=== PATIENT | female | born 1950 | race American Indian/Alaskan Native ===

== ENCOUNTER 2016-10-02 14:40 | Inpatient (IN) | payer MEDICARE ==
[2016-10-02 15:39] LABS: Basophils % (Auto) 0.8 % (0.0-1.8); Eosinophils % (Auto) 1.7 % (0.0-4.3); Hematocrit 31.6 % (30.3-42.9); Hemoglobin 10.6 gm/dl (10.1-14.3); Mean Corpuscular HGB Conc 34 % (30-34); Mean Corpuscular Hemoglobin 31 pg (28-32); Mean Corpuscular Volume 92 fl (79-97); Platelet Count 273 K/mm3 (140-440); Red Blood Count 3.44 M/mm3 (3.65-5.03); Red Cell Distribution Width 17.2 % (13.2-15.2)
[2016-10-02 15:48] LABS: INR 1.02 (0.87-1.13)
[2016-10-02 15:49] LABS: Partial Thromboplastin Time 38.7 Sec. (24.2-36.6)
[2016-10-02 16:12] LABS: BUN/Creatinine Ratio 7.04; Calcium 8.7 mg/dL (8.4-10.2); Chloride 96.3 mmol/L (98-107)
--- NOTE | 2016-10-02 16:15 | Emergency Department Report ---
ED Chest Pain HPI - General Chief Complaint: Chest Pain Stated Complaint: CHEST PAIN Time Seen by Provider: 10/02/16 15:57 Source: patient, EMS Mode of arrival: Stretcher Limitations: No Limitations - History of Present Illness Initial Comments: This is a 66-year-old Afro-[place]ian female presents to the emergency department with complaints of low back pain and chest pain. The low back pain has been going on for the past 2 days and radiates to the bilateral hips. She denies any problems with bowel or bladder, numbness or paresthesias or any neurological deficits. Her complaint of chest pain is generalized aches to the whole chest. It is not associated with any shortness of breath, nausea, vomiting or diaphoresis. The pain has been constant and continued through dialysis this morning. When the dialysis caused the chest pain to worsen, she was sent in via EMS for further evaluation. She completed about 3.5 of a total of 4 hours for dialysis. She denies any history of IN, CVA, PE/DVT. Her primary care doctor is a Dr. Lopez and her quality assurance tech is a Dr. Ford. Severity scale (0 -10): 8 - Related Data Home Medications Medication Instructions Recorded Confirmed Last Taken Allopurinol [Zyloprim] 100 mg PO DAILY 08/03/14 10/02/16 11/14/14 Carvedilol [Coreg] 12.5 mg PO BID 08/03/14 10/02/16 11/14/14 Cinacalcet [Sensipar] 60 mg PO QDAY 09/13/16 10/02/16 Unknown Docusate Sodium [Colace CAP] 100 mg PO BID PRN 09/13/16 10/02/16 Unknown Furosemide [Lasix TAB] 20 mg PO QDAY 09/13/16 10/02/16 Unknown Sevelamer Carbonate [Renvela] 800 mg PO TIDWM 09/13/16 10/02/16 Unknown traMADol [Ultram 50 MG tab] 50 mg PO Q6HR PRN 09/13/16 10/02/16 Unknown Previous Rx's Medication Instructions Recorded Last Taken Type Lisinopril [Zestril TAB] 20 mg PO QDAY #30 tablet 12/13/13 11/14/14 Rx Allergies Allergy/AdvReac Type Severity Reaction Status Date / Time No Known Allergies Allergy Verified 12/09/13 08:59 MONE score - Mone Score Age > 65: (1) Yes Aspirin use within the Past 7 Days: (0) No 3 or more CAD Risk Factors: (0) No 2 or more Angina events in past 24 hrs: (1) Yes Known CAD with more than 50% Stenosis: (0) No Elevated Cardiac Markers: (0) No ST Deviation Greater than 0.5mm: (0) No MONE Score: 2 ED Review of Systems ROS: Stated complaint: CHEST PAIN Other details as noted in HPI Comment: All other systems reviewed and negative Constitutional: denies: chills, fever Eyes: denies: eye pain, eye discharge, vision change ENT: denies: ear pain, throat pain Respiratory: denies: cough, shortness of breath, wheezing Cardiovascular: chest pain. denies: palpitations Gastrointestinal: denies: abdominal pain, nausea, diarrhea Genitourinary: denies: urgency, dysuria, discharge Musculoskeletal: back pain. denies: arthralgia Skin: denies: rash, lesions Neurological: denies: headache, weakness, numbness, paresthesias ED Past Medical Hx - Past Medical History Previous Medical History?: Yes Hx Hypertension: Yes Hx CVA: Yes (x 2) Hx Congestive Heart Failure: Yes Hx Diabetes: Yes Hx GERD: Yes Hx Renal Disease: Yes (ESRD/dialysis M, W, F) Hx Arthritis: Yes Additional medical history: enlarged heart, gout - Surgical History Past Surgical History?: Yes Hx Appendectomy: Yes Additional Surgical History: tubal ligation, vas cath. LUE fistula - Social History Smoking Status: Unknown if ever smoked - Medications Home Medications: Home Medications Medication Instructions Recorded Confirmed Last Taken Type Lisinopril [Zestril TAB] 20 mg PO QDAY #30 tablet 12/13/13 10/02/16 11/14/14 Rx Allopurinol [Zyloprim] 100 mg PO DAILY 08/03/14 10/02/16 11/14/14 History Carvedilol [Coreg] 12.5 mg PO BID 08/03/14 10/02/16 11/14/14 History Cinacalcet [Sensipar] 60 mg PO QDAY 09/13/16 10/02/16 Unknown History Docusate Sodium [Colace CAP] 100 mg PO BID PRN 09/13/16 10/02/16 Unknown History Furosemide [Lasix TAB] 20 mg PO QDAY 09/13/16 10/02/16 Unknown History Sevelamer Carbonate [Renvela] 800 mg PO TIDWM 09/13/16 10/02/16 Unknown History traMADol [Ultram 50 MG tab] 50 mg PO Q6HR PRN 09/13/16 10/02/16 Unknown History ED Physical Exam - General Limitations: No Limitations - Other Other exam information: GENERAL: The patient is well-developed well-nourished. HEENT: Normocephalic. Atraumatic. Extraocular motions are intact. Patient has moist mucous membranes. NECK: Supple. Trachea is midline. CHEST/LUNGS: Clear to auscultation. There is no respiratory distress noted. HEART/CARDIOVASCULAR: Regular. There is no tachycardia. There is no gallop rub or murmur. ABDOMEN: Abdomen is soft, nontender. Patient has normal bowel sounds. There is no abdominal distention. SKIN: There is no rash. There is no edema. There is no diaphoresis. NEURO: The patient is awake, alert, and oriented. The patient is cooperative. The patient has no focal neurologic deficits. The patient has normal speech. MUSCULOSKELETAL: There is no tenderness or deformity. There is no limitation range of motion. There is no evidence of acute injury. Muscle strength 5 out of 5 for upper and lower extremities including EHL bilaterally. BACK: No midline thoracic tenderness to palpation or deformity. Patient has reproducible tenderness to palpation to the lumbar midline and bilateral paraspinal regions but no step-off or deformity. ED Course Vital Signs 10/02/16 10/02/16 10/02/16 14:48 15:35 15:39 Temperature 98.2 F Pulse Rate 84 87 87 Respiratory 18 25 H 15 Rate Blood Pressure 200/80 154/63 Blood Pressure 153/63 [Right] O2 Sat by Pulse 97 98 Oximetry 10/02/16 10/02/16 10/02/16 16:00 16:40 17:00 Temperature Pulse Rate 83 89 Respiratory 15 18 18 Rate Blood Pressure 154/64 158/71 Blood Pressure [Right] O2 Sat by Pulse 95 98 91 Oximetry ED Medical Decision Making - Lab Data Result diagrams: 10/02/16 15:20 10/02/16 15:20 - EKG Data -: EKG Interpreted by In EKG shows normal: sinus rhythm, axis, intervals, QRS complexes (LVH), ST-T waves (nonspecific ST changes) Rate: normal - EKG Data When compared to previous EKG there are: previous EKG unavailable Interpretation: nonspecific ST-T wave annamarie, LVH - Radiology Data Radiology results: report reviewed, image reviewed interpreted by me: Chest x-ray did not show any acute process. Heart is normal shape and size. No effusions. No pneumothorax. No signs of pneumonia seen. VQ scan reads as moderately large ventilation/perfusion match defect in the lower left lung. Limited evaluation on portable chest radiograph, there may be mild airspace disease in this region. If this is the case, this would be intermediate probability for pulmonary embolism. - Medical Decision Making 66-year-old female presents with a few days of low back pain and now more acute generalized chest pain. Patient recently had a cardiac catheterization at the end of August in which day stent was placed at that time. Patient was evaluated today with physical exam, labs, imaging EKG. The EKG was originally done through EMS but does show a 12-lead that shows some LVH and nonspecific ST- T changes but otherwise no obvious STEMI or dysrhythmia. Chest x-ray does not show any pleural effusion, obvious pneumonia or pneumothorax or any acute process. Patient's first troponin came back positive but this may be secondary to her renal insufficiency as opposed to coronary artery disease. Patient had a elevated but equivocal d-dimer so a VQ scan was done secondary to the patient' s renal insufficiency. VQ scan came back with a moderate left lower lobe ventilation/perfusion match defect that could be intermediate probability for PE. For this reason heparin will be started. Patient will be admitted to hospital for serial troponins and further evaluation. Regarding the patient's low back pain. The patient does not have any focal, motor or sensory deficits. There are no problems with bowel or bladder or any neurological deficits. Patient does not appear to have any of the emergent back condition such as cauda equina, cord compression or epidural abscess. Since there was no trauma and there is no obvious deformity or step-off, did not feel that any imaging was necessary at this time. Patient has been accepted for admission by the hospitalist, Dr. Rees. - Differential Diagnosis IN, PE, CHF, pneumonia Critical Care Time: No Critical care attestation.: If time is entered above; I have spent that time in minutes in the direct care of this critically ill patient, excluding procedure time. ED Disposition Clinical Impression: ESRD needing dialysis, Elevated troponin, Equivocal imaging test findings, Back pain Chest pain Qualifiers: Chest pain type: unspecified Qualified Code(s): R07.9 - Chest pain, unspecified HTN (hypertension) Qualifiers: Hypertension type: essential hypertension Qualified Code(s): I10 - Essential ( primary) hypertension Disposition: OP ADMITTED IP TO THIS HOSP Is pt being admited?: Yes Condition: Stable Instructions: Chest Pain (ED), Hypertension (ED) Time of Disposition: 19:37
[2016-10-02 16:32] LABS: Potassium 2.9 mmol/L (3.6-5.0)
[2016-10-02] MEDS ORDERED: MORPHINE IV ONE (16:40)
[2016-10-02] MEDS ORDERED: K-DUR PO ONE ×3 (17:07→23:27)
--- NOTE | 2016-10-02 19:07 | Nuclear Medicine Report ---
FINAL REPORT PROCEDURE: NM LUNG SCAN PERF/VENT TECHNIQUE: Five mCi Tc-99m MAA was injected IV for pulmonary perfusion imaging in multiple projections. Fifteen mCi xenon 133 aerosol was inhaled for pulmonary ventilation imaging in multiple projections. Injection site: RIGHT antecubital fossa. CPT 46405 REGULATORY GUIDELINES: The patient was released based upon established guidelines. HISTORY: SOB, CP, elevated dimer COMPARISON: Chest radiograph dated 10/02/2015. FINDINGS: Perfusion: Moderately large defect in the left lower lung. Ventilation: Moderately large defect in the left lower lung. IMPRESSION: Moderately large ventilation/perfusion match defect in the left lower lung. Limited evaluation on portable chest radiograph, there may be mild airspace disease in this region. If this is the case (i.e. triple match in the left lower lobe) this would be intermediate probability for pulmonary embolism. Consider further evaluation including pulmonary embolism protocol chest CT if there is continued clinical concern and patient has no contraindication to intravenous contrast.
[2016-10-02] MEDS ORDERED: HEPARIN 10,000 UNITS/10 ML IV ONE (19:20)
[2016-10-02] MEDS ORDERED: HEPARIN/ 0.45% NACL-25,000 UNIT/500 ML 500 ML IV SCH (20:00)
[2016-10-02 20:28] LABS: INR 1.01 (0.87-1.13); Partial Thromboplastin Time 32.3 Sec. (24.2-36.6)
[2016-10-02] MEDS ORDERED: COLACE PO PRN (23:11)
[2016-10-02] MEDS ORDERED: ULTRAM ONE (23:34)
[2016-10-02] MEDS: ULTRAM PO PRN (23:42)
--- NOTE | 2016-10-03 00:04 | History and Physical Report ---
History of Present Illness Date of examination: 10/03/16 Date of admission: 10/02/16 22:40 Chief complaint: chest pain, ESRD on HD History of present illness: Patient is a 66-year-old lady was a history of end-stage renal disease on hemodialysis on Wednesdays and Fridays, complained of right-sided chest pain while at hemodialysis today. Pain was intermittent in severity. Radiating to right shoulder. Denies any shortness of breath or diaphoresis. No palpitations. No orthopnea or proximal nocturnal dyspnea. Came to the emergency department, where cardiac enzymes were found to be elevated. Potassium was 2.9. Admission was therefore requested. Id. as well as elevated. Past History Past Medical History: ESRD, hypertension Past Surgical History: Other (tubal ligation, appendectomy,) Social history: lives with family, smoking ( smokes about 10 cigarettes a day), alcohol abuse. denies: IV drug use Family history: hypertension Medications and Allergies Allergies Allergy/AdvReac Type Severity Reaction Status Date / Time No Known Allergies Allergy Verified 12/09/13 08:59 Home Medications Medication Instructions Recorded Confirmed Last Taken Type Lisinopril [Zestril TAB] 20 mg PO QDAY #30 tablet 12/13/13 10/02/16 11/14/14 Rx Allopurinol [Zyloprim] 100 mg PO DAILY 08/03/14 10/02/16 11/14/14 History Carvedilol [Coreg] 12.5 mg PO BID 08/03/14 10/02/16 11/14/14 History Cinacalcet [Sensipar] 60 mg PO QDAY 09/13/16 10/02/16 Unknown History Docusate Sodium [Colace CAP] 100 mg PO BID PRN 09/13/16 10/02/16 Unknown History Furosemide [Lasix TAB] 20 mg PO QDAY 09/13/16 10/02/16 Unknown History Sevelamer Carbonate [Renvela] 800 mg PO TIDWM 09/13/16 10/02/16 Unknown History traMADol [Ultram 50 MG tab] 50 mg PO Q6HR PRN 09/13/16 10/02/16 Unknown History Active Meds: Active Medications Allopurinol (Zyloprim) 100 mg PO DAILY ETHAN Carvedilol (Coreg) 12.5 mg PO BID ETHAN Cinacalcet (Sensipar) 60 mg PO QDAY ETHAN Docusate Sodium (Colace) 100 mg PO BID PRN PRN Reason: Constipation Enoxaparin Sodium (Lovenox) 40 mg SUB-Q QDAY ETHAN Furosemide (Lasix) 20 mg PO QDAY ETHAN Lisinopril (Zestril) 20 mg PO QDAY ETHAN Nitroglycerin (Nitro Dur) 0.1 mg TD QDAY@0600 ETHAN Sevelamer Carbonate (Renvela) 800 mg PO TIDWM ETHAN Tramadol HCl (Ultram) 50 mg PO Q6H PRN PRN Reason: Pain Last Admin: 10/02/16 23:42 Dose: 50 mg Review of Systems Constitutional: no weight loss, no weight gain Ears, nose, mouth and throat: no ear pain Cardiovascular: chest pain, no orthopnea, no palpitations Respiratory: no cough, no cough with sputum, no excessive sputum Gastrointestinal: no nausea, no vomiting, no diarrhea Genitourinary Female: no dyspareunia, no dysmenorrhea, no pelvic pain, no flank pain Integumentary: no rash, no pruritis, no redness Neurological: no head injury, no transient paralysis, no paralysis, no weakness Psychiatric: no anxiety, no memory loss, no change in sleep habits Endocrine: no cold intolerance, no heat intolerance, no polyphagia Hematologic/Lymphatic: no easy bruising, no easy bleeding Allergic/Immunologic: no urticaria Exam - Constitutional Vitals: Temp Pulse Resp BP Pulse Ox 98.3 F 86 15 155/63 95 10/02/16 19:15 10/02/16 22:00 10/02/16 22:00 10/02/16 22:00 10/02/16 22:00 General appearance: Present: no acute distress - EENT Eyes: Present: PERRL ENT: hearing intact, clear oral mucosa - Neck Neck: Present: supple, normal ROM - Respiratory Respiratory effort: normal Respiratory: bilateral: CTA - Cardiovascular Heart Sounds: Present: S1 & S2. Absent: rub, click - Extremities Extremities: pulses symmetrical, No edema Peripheral Pulses: within normal limits - Abdominal General gastrointestinal: Present: soft, non-tender, non-distended, normal bowel sounds Female genitourinary: Present: normal - Integumentary Integumentary: Present: clear, warm, dry - Musculoskeletal Musculoskeletal: strength equal bilaterally, other (A-V fistula in the left upper arm) - Psychiatric Psychiatric: appropriate mood/affect, intact judgment & insight - Neurologic Neurologic: CNII-XII intact, moves all extremities Results - Labs CBC & Chem 7: 10/02/16 15:20 10/02/16 15:20 Assessment and Plan Assessment 1. Chest pain most likely muscular skeletal 2. End-stage renal disease hemodialysis 3. Hypokalemia with a potassium of 2.9 Plan Admit to telemetry Commence patient on oxygen,nitroglycerin, aspirin, morphine. Nephrology consult to continue hemodialysis on Wednesdays and Fridays Supplement potassium orally DVT prophylaxis with Lovenox, GI prophylaxis with Pepcid Spent 32 minutes in direct patient care and explanation of management plan the patient
--- NOTE | 2016-10-03 00:42 | Admit Criteria Form ---
Admission Criteria Documentation: CHEST PAIN Clinical Indications for Admission to Inpatient Care (Place 'X' for any and all applicable criteria): Admission is indicated for chest pain and ANY ONE of the following(1)(2)(3)(4)(5 ): [ ]I. Angina with acute coronary syndrome (Also use Myocardial Infarction or Angina guideline) [ ]II. Hemodynamic instability [ ]III. Angina needing acute intervention as indicated by ALL of the following( 11)(12): [ ]a) Unstable angina is present as indicated by angina that is ANY ONE of the following: [ ]i) New onset [ ]ii) Nocturnal [ ]iii) Prolonged at rest [ ]iv) Progressive [ ]b) Angina warrants acute intervention as indicated by ANY ONE of the following: [ ]i) Recurrent angina (e.g, not responding as previously to treatment) [ ]ii) Angina at rest or with low-level activities despite initial medical therapy [ ]iii) New or presumably new ST-segment depression on ECG [ ]iv) Signs or symptoms of heart failure (eg, dyspnea, pulmonary edema) [ ]v) New or worsening mitral regurgitation [ ]vi) Hemodynamic instability [ ]vii) Dangerous arrhythmia (eg, sustained ventricular tachycardia) [ ]viii) History of percutaneous coronary intervention within 6 months [ ]ix) History of coronary artery bypass graft surgery [ ]x) MONE risk score of 2 or greater[A] [ ]xi) History of Diabetes(14) [ ]xii) High-risk cardiac ischemia findings on noninvasive testing (e.g, echocardiogram, treadmill testing, nuclear scan) [ ]xiii) Chronic renal insufficiency (ie, estimated GFR less than 60 mL/min/1.732m) [ ]xiv) Left ventricular ejection fraction less than 40% [ X]IV. Evidence of VA (eg, cardiac biomarkers positive, ST-segment elevation on ECG) also use Myocardial Infarction Criteria Form. [ ]V. Pulmonary edema [ ]. Respiratory distress [ ]VII. Chest pain indicative of serious diagnosis other than coronary artery disease (eg, aortic dissection) [ ]VIII. Contraindications and/or Inappropriate clinical situations for Observational Care in patients with Chest Pain, when ANY ONE of the following is required: [ ]a) Patient with risk factor for pulmonary embolism, acute coronary syndrome and myocardial infarction (18) [ ]b) Patient with Pulmonary embolism require an average LOS of 4.3 days, therefore emergency department observation management is inappropriate 18,23 [ ]c) Painful condition/s in the elderly, have the highest rate of recidivism after emergency department observation management (10.8%) 20,21,22 [ ]d) Elevated cardiac biomarker requires intensive and exhaustive care (19) [ ]IX. General contraindications and/or Inappropriate clinical situations for Observational Care in patients with Chest Pain, when ANY ONE of the following is required: [ ]a) Prediction of prolongation of LOS based on ANY ONE of the following may be considered as a contraindication for observational care 2, 3, 4, 5, 6, 7, 8, 9, 10, 11 [ ]i) Age > 65 yrs. [ ]ii) Patient arriving by ambulance [ ]iii) Patient with high acuity [ ]iv) Patient requiring vital sign monitoring [ ]v) Patient on IV medication [ ]b) Systolic blood pressures 180mmHg 3,12 [ ]c) Patient with altered mental status including delirium and other alteration of consciousness, (3) [ ]d) Patient whose discharge disposition will be to a long term home or rehabilitation home should not be managed in Emergency Department Observation Unit. CMS rule requires 3 days hospital stay before such placement. 3,13 [ ]e) Patient with failure to thrive due to broad array of etiologies 3,16,17 [ ]f) Inability to ambulate 3,14 Extended stay beyond goal length of stay may be needed for (1)(28): [ ]a) Specific condition diagnosed after evaluation (eg, pulmonary embolism, aortic dissection) [ ]b) Unstable angina [ ]c) Continued suspicion of acute coronary syndrome with inability to complete needed cardiac evaluation (eg, patient clinically unable to undergo stress testing) [ ]d) Myocardial infarction (Contents from ANGINA and CHEST PAIN clinical indications for admission to inpatient care have been integrated in this form) The original [email or web address] content created by [employer] has been revised. The portions of the content which have been revised are identified through the use of italic text or in bold, and [facility] [employer] has neither reviewed nor approved the modified material. All other unmodified content is copyright [email or web address]. Please see references footnoted in the original [email or web address] edition 2016 Admission Criteria Met: Yes
[2016-10-03] MEDS ORDERED: NORCO 5/325 PO ONE (04:46)
[2016-10-03 05:55] LABS: Creatine Kinase MB 1.3 ng/mL (0.0-4.0)
[2016-10-03] MEDS: NITRO DUR TD SCH (06:10)
--- NOTE | 2016-10-03 08:06 | XRay Report ---
AP CHEST : 10/02/16 14:40:00 CLINICAL: Chest pain. COMPARISON:09/13/16 FINDINGS: Stable cardiomegaly. Mild prominence of the central pulmonary vessels. The lungs are normally expanded and clear. The bones and soft tissues are unremarkable. IMPRESSION: Cardia megaly and pulmonary venous hypertension. No pulmonary edema.
[2016-10-03 09:40] LABS: BUN/Creatinine Ratio 7.74; Calcium 9.3 mg/dL (8.4-10.2); Potassium 5.2 mmol/L (3.6-5.0)
[2016-10-03] MEDS: RENVELA PO SCH ×3 (09:57→17:04)
[2016-10-03] MEDS: ASPIRIN PO SCH (09:57)
[2016-10-03] MEDS: SENSIPAR PO SCH (09:58)
[2016-10-03] MEDS: COREG PO SCH ×3 (09:58→22:00)
[2016-10-03] MEDS: LASIX PO SCH (09:58)
[2016-10-03] MEDS: ZYLOPRIM PO SCH (09:58)
[2016-10-03] MEDS: LOVENOX SUB-Q SCH (09:58)
[2016-10-03] MEDS: ZESTRIL PO SCH (09:58)
[2016-10-03 14:11] LABS: Creatine Kinase MB 1.4 ng/mL (0.0-4.0)
--- NOTE | 2016-10-03 14:46 | Consultation ---
History of Present Illness Consult date: 10/03/16 Requesting physician: CON WARNER Consult reason: chest pain History of present illness: The patient is a 66 year old female who is followed by Dr. Ford in the office with a history of CAD s/p recent PCI of the RCA (09/14/16), hypertension, ESRD who presented to with complaints of substernal chest pain with radiation to her right shoulder and right hip that started yesterday prior to dialysis. Once she was started on dialysis, the chest pain became more severe and she was taken off the machine early and sent to the ER for further evaluation. She denies any shortness of breath, nausea, vomiting or diaphoresis. Troponin level is mildly elevated. Echo done 08/21/2016 showed EF 50-55%. On 09/14/16 left heart cath revealed calcified coronary arteries (large epicardial vessels), left main patent, LAD patent, circumflex patent, ramus patent, OM1 patent, diagonal 1 patent, 95% ostial proximal RCA. She underwent successful PCI with a drug- eluting resolute 3.5 x 22mm. She states that she has been compliant with DAPT. 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 denies: alcohol abuse, prescription drug abuse, IV drug use Family history: hypertension Medications and Allergies Allergies Allergy/AdvReac Type Severity Reaction Status Date / Time No Known Allergies Allergy Verified 12/09/13 08:59 Home Medications Medication Instructions Recorded Confirmed Last Taken Type Lisinopril [Zestril TAB] 20 mg PO QDAY #30 tablet 12/13/13 10/02/16 11/14/14 Rx Allopurinol [Zyloprim] 100 mg PO DAILY 08/03/14 10/02/16 11/14/14 History Carvedilol [Coreg] 12.5 mg PO BID 08/03/14 10/02/16 11/14/14 History Cinacalcet [Sensipar] 60 mg PO QDAY 09/13/16 10/02/16 Unknown History Docusate Sodium [Colace CAP] 100 mg PO BID PRN 09/13/16 10/02/16 Unknown History Furosemide [Lasix TAB] 20 mg PO QDAY 09/13/16 10/02/16 Unknown History Sevelamer Carbonate [Renvela] 800 mg PO TIDWM 09/13/16 10/02/16 Unknown History traMADol [Ultram 50 MG tab] 50 mg PO Q6HR PRN 09/13/16 10/02/16 Unknown History Active Meds: Active Medications Allopurinol (Zyloprim) 100 mg PO DAILY [facility] Last Admin: 10/03/16 09:58 Dose: 100 mg Aspirin (Aspirin) 325 mg PO QDAY [facility] Last Admin: 10/03/16 09:57 Dose: 325 mg Carvedilol (Coreg) 12.5 mg PO BID [facility] Last Admin: 10/03/16 09:58 Dose: 12.5 mg Cinacalcet (Sensipar) 60 mg PO QDAY [facility] Last Admin: 10/03/16 09:58 Dose: 60 mg Docusate Sodium (Colace) 100 mg PO BID PRN PRN Reason: Constipation Enoxaparin Sodium (Lovenox) 30 mg SUB-Q QDAY [facility] Last Admin: 10/03/16 09:58 Dose: 30 mg Furosemide (Lasix) 20 mg PO QDAY [facility] Last Admin: 10/03/16 09:58 Dose: 20 mg Lisinopril (Zestril) 20 mg PO QDAY [facility] Last Admin: 10/03/16 09:58 Dose: 20 mg Nitroglycerin (Nitro Dur) 0.1 mg TD QDAY@0600 [facility] Last Admin: 10/03/16 06:10 Dose: 0.1 mg Sevelamer Carbonate (Renvela) 800 mg PO TIDWM [facility] Last Admin: 10/03/16 12:21 Dose: 800 mg Tramadol HCl (Ultram) 50 mg PO Q6H PRN PRN Reason: Pain Last Admin: 10/02/16 23:42 Dose: 50 mg Review of Systems Constitutional: no fever, no chills Ears, nose, mouth and throat: no nasal congestion, no nasal discharge, no sinus pressure Cardiovascular: chest pain, no shortness of breath Respiratory: no shortness of breath, no dyspnea on exertion, no congestion, no wheezing Gastrointestinal: no abdominal pain, no nausea, no vomiting, no diarrhea Genitourinary Female: no dysuria, no urgency Musculoskeletal: no neck stiffness, no neck pain, no myalgias Integumentary: no rash, no pruritis Neurological: no parathesias, no numbness, no tingling, no headaches Endocrine: no cold intolerance, no heat intolerance Hematologic/Lymphatic: no easy bruising, no easy bleeding Allergic/Immunologic: no urticaria, no wheezing Physical Examination Vital Signs Temp Pulse Resp BP 98.2 F 84 18 200/80 10/02/16 14:48 10/02/16 14:48 10/02/16 14:48 10/02/16 14:48 General appearance: no acute distress HEENT: Positive: Normocephaly, Mucus Membranes Moist Neck: Positive: neck supple, trachea midline Cardiac: Positive: Reg Rate and Rhythm, S1/S2 Lungs: Positive: clear to auscultation Neuro: Positive: Grossly Intact Abdomen: Positive: Soft, Active Bowel Sounds. Negative: Tender Skin: Positive: Clear. Negative: Rash Extremities: Present: normal. Absent: edema Results 10/02/16 15:20 10/03/16 09:05 Cardiac Enzymes 10/03/16 10/03/16 Range/Units 04:49 12:18 CK-MB (CK-2) 1.3 1.4 (0.0-4.0) ng/mL Comprehensive Metabolic Panel 10/03/16 Range/Units 09:05 Sodium 141 (137-145) mmol/L Potassium 5.2 H D (3.6-5.0) mmol/L Chloride 97.0 L (98-107) mmol/L Carbon Dioxide 30 (22-30) mmol/L BUN 48 H (7-17) mg/dL Creatinine 6.2 H (0.7-1.2) mg/dL Glucose 78 (65-100) mg/dL Calcium 9.3 (8.4-10.2) mg/dL - Imaging and Cardiology Echo: report reviewed (08/2016: EF 50-55% ) EKG: image reviewed EKG interpretations - Telemetry EKG Rhythm: Sinus Rhythm - EKG Sinus rhythms and dysrhythmias: sinus rhythm Repolarization changes or abnormalities: nonspecific abnormality, ST segment, and/or T wave Assessment and Plan Chest pain resolved Echo 08/2016: EF 50-55% (increased from ~30% in 2013) Lexiscan thallium stress test in am VQ scan: moderate LLL ventilation/perfusion match defect-->intermediate probability for PE? NSTEMI type II troponin elevation likely due to ESRD CAD s/p recent PCI to RCA (09/14/16) [facility] 09/14/16: calcified coronary arteries large epicardial vessels, left main patent, LAD patent, circumflex patent, ramus patent, OM1 patent, diagonal 1 patent, 95% ostial proximal RCA-->successful PCI with a drug-eluting resolute 3.5 x 22 mm continue ASA, Plavix, statin, coreg, lisinopril Hypertension stable continue coreg/lisinopril Hyperlipidemia Peripheral arterial disease ESRD Tobacco abuse counseled on cessation Lexiscan thallium stress test in am. Further recommendations to follow. The patient has been seen in conjunction with Dr. Kim who agrees with the assessment and plan of care. Thank you Dr. Warner for allowing us to participate in the care of this patient.
[2016-10-03] MEDS: PLAVIX PO SCH (17:04)
--- NOTE | 2016-10-03 18:08 | Progress Note ---
[id number] End-stage renal disease on hemodialysis. Nephrology managing Hypertension continue Coreg Coronary artery disease.history of PCI Aspirin Plavix beta blockers History Interval history: chest pain Hospitalist Physical - Constitutional Vitals: Temp Pulse Resp BP Pulse Ox 98.4 F 79 18 166/77 96 10/03/16 11:43 10/03/16 14:07 10/03/16 11:43 10/03/16 11:43 10/03/16 11:43 General appearance: Present: no acute distress - EENT Eyes: Present: PERRL ENT: hearing intact - Neck Neck: Present: supple, normal ROM - Respiratory Respiratory effort: normal Respiratory: bilateral: CTA, negative: diminished, rales, rhonchi, wheezing - Cardiovascular Rhythm: regular Heart Sounds: Present: S1 & S2 (S1 and S2 regular) - Extremities Extremities: no ischemia, No edema, normal temperature, normal color - Abdominal General gastrointestinal: soft, non-tender, non-distended, normal bowel sounds - Integumentary Integumentary: Present: clear, warm, dry - Psychiatric Psychiatric: appropriate mood/affect, intact judgment & insight - Neurologic Neurologic: other (awake alert) Results - Labs CBC & Chem 7: 10/04/16 05:26 10/05/16 09:05 Labs: Laboratory Last Values WBC 5.0 K/mm3 (4.5-11.0) 10/02/16 15:20 RBC 3.44 M/mm3 (3.65-5.03) L 10/02/16 15:20 Hgb 10.6 gm/dl (10.1-14.3) 10/02/16 15:20 Hct 31.6 % (30.3-42.9) 10/02/16 15:20 MCV 92 fl (79-97) 10/02/16 15:20 MCH 31 pg (28-32) 10/02/16 15:20 MCHC 34 % (30-34) 10/02/16 15:20 RDW 17.2 % (13.2-15.2) H 10/02/16 15:20 Plt Count 273 K/mm3 (140-440) 10/02/16 15:20 Lymph % (Auto) 21.3 % (13.4-35.0) 10/02/16 15:20 [place] % (Auto) 11.3 % (0.0-7.3) H 10/02/16 15:20 Eos % (Auto) 1.7 % (0.0-4.3) 10/02/16 15:20 Baso % (Auto) 0.8 % (0.0-1.8) 10/02/16 15:20 Lymph # 1.1 K/mm3 (1.2-5.4) L 10/02/16 15:20 [place] # 0.6 K/mm3 (0.0-0.8) 10/02/16 15:20 Eos # 0.1 K/mm3 (0.0-0.4) 10/02/16 15:20 Baso # 0.0 K/mm3 (0.0-0.1) 10/02/16 15:20 Seg Neutrophils % 64.9 % (40.0-70.0) 10/02/16 15:20 Seg Neutrophils # 3.2 K/mm3 (1.8-7.7) 10/02/16 15:20 PT 13.2 Sec. (12.2-14.9) 10/02/16 20:03 INR 1.01 (0.87-1.13) 10/02/16 20:03 APTT 32.3 Sec. (24.2-36.6) 10/02/16 20:03 D-Dimer 415.26 ng/mlDDU (0-234) H 10/02/16 17:00 Heparin Anti-Xa Level < 0.10 U.I./ml (0.3-0.7) L 10/03/16 04:49 Sodium 141 mmol/L (137-145) 10/03/16 09:05 Potassium 5.2 mmol/L (3.6-5.0) H D 10/03/16 09:05 Chloride 97.0 mmol/L (98-107) L 10/03/16 09:05 Carbon Dioxide 30 mmol/L (22-30) 10/03/16 09:05 Anion Gap 19 mmol/L 10/03/16 09:05 BUN 48 mg/dL (7-17) H 10/03/16 09:05 Creatinine 6.2 mg/dL (0.7-1.2) H 10/03/16 09:05 Estimated GFR 8 ml/min 10/03/16 09:05 BUN/Creatinine Ratio 7.74 % 10/03/16 09:05 Glucose 78 mg/dL (65-100) 10/03/16 09:05 Calcium 9.3 mg/dL (8.4-10.2) 10/03/16 09:05 Total Creatine Kinase 25 units/L (30-135) L 10/03/16 12:18 CK-MB (CK-2) 1.4 ng/mL (0.0-4.0) 10/03/16 12:18 CK-MB (CK-2) Rel Index 5.6 (0-4) H 10/03/16 12:18 Troponin T 0.082 ng/mL (0.00-0.029) H 10/03/16 12:18 Triglycerides 84 mg/dL (2-149) 10/02/16 20:03 Cholesterol 185 mg/dL (50-199) 10/02/16 20:03 LDL Cholesterol Direct 103 mg/dL (50-130) 10/02/16 20:03 HDL Cholesterol 66 mg/dL (40-59) H 10/02/16 20:03 Cholesterol/HDL Ratio 2.80 % 10/02/16 20:03
[2016-10-03] MEDS ORDERED: NACL 0.9% 1000 ML 100 ML IV PRN (19:32)
--- NOTE | 2016-10-03 19:39 | Consultation ---
History of Present Illness - Reason for Consult Consult date: 10/03/16 end stage renal disease Requesting physician: CON WARNER - History of Present Illness 66-year-old lady who is well known to me with a history of hypertension, complicated by end-stage renal disease on hemodialysis on a Sunday, Sunday and Sunday schedule. Patient has had numerous hospitalizations. She was recently hospitalized on account of chest pain about 3 weeks ago. Before that she was in this hospital with acute diverticulitis. During the hospitalization for chest pain, patient had Percutaneous coronary intervention of the right coronary artery. 2-D echo again showed ejection fraction of 50-55%. She says she was doing well till the day of presentation when she went to dialysis clinic and complained of right-sided chest pain. Pain radiated to the right shoulder and started before dialysis. There was no associated nausea vomiting and dizziness or diaphoresis. No shortness of breath. Patient was sent to the hospital for further evaluation. 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 denies: alcohol abuse, prescription drug abuse, IV drug use Family history: hypertension (both parents and one brother), other (father of complications of rheumatic fever. Mother in her 60s with kidney failure. One brother was on dialysis before he ) Medications and Allergies Allergies Allergy/AdvReac Type Severity Reaction Status Date / Time No Known Allergies Allergy Verified 12/09/13 08:59 Home Medications Medication Instructions Recorded Confirmed Last Taken Type Lisinopril [Zestril TAB] 20 mg PO QDAY #30 tablet 12/13/13 10/02/16 11/14/14 Rx Allopurinol [Zyloprim] 100 mg PO DAILY 08/03/14 10/02/16 11/14/14 History Carvedilol [Coreg] 12.5 mg PO BID 08/03/14 10/02/16 11/14/14 History Cinacalcet [Sensipar] 60 mg PO QDAY 09/13/16 10/02/16 Unknown History Docusate Sodium [Colace CAP] 100 mg PO BID PRN 09/13/16 10/02/16 Unknown History Furosemide [Lasix TAB] 20 mg PO QDAY 09/13/16 10/02/16 Unknown History Sevelamer Carbonate [Renvela] 800 mg PO TIDWM 09/13/16 10/02/16 Unknown History traMADol [Ultram 50 MG tab] 50 mg PO Q6HR PRN 09/13/16 10/02/16 Unknown History Active Meds: Active Medications Allopurinol (Zyloprim) 100 mg PO DAILY [facility] Last Admin: 10/03/16 09:58 Dose: 100 mg Aspirin (Aspirin) 325 mg PO QDAY [facility] Last Admin: 10/03/16 09:57 Dose: 325 mg Atorvastatin Calcium (Lipitor) 40 mg PO QHS [facility] Carvedilol (Coreg) 12.5 mg PO BID [facility] Last Admin: 10/03/16 09:58 Dose: 12.5 mg Cinacalcet (Sensipar) 60 mg PO QDAY [facility] Last Admin: 10/03/16 09:58 Dose: 60 mg Clopidogrel Bisulfate (Plavix) 75 mg PO QDAY [facility] Last Admin: 10/03/16 17:04 Dose: 75 mg Docusate Sodium (Colace) 100 mg PO BID PRN PRN Reason: Constipation Enoxaparin Sodium (Lovenox) 30 mg SUB-Q QDAY [facility] Last Admin: 10/03/16 09:58 Dose: 30 mg Furosemide (Lasix) 20 mg PO QDAY [facility] Last Admin: 10/03/16 09:58 Dose: 20 mg Lisinopril (Zestril) 20 mg PO QDAY [facility] Last Admin: 10/03/16 09:58 Dose: 20 mg Nitroglycerin (Nitro Dur) 0.1 mg TD QDAY@0600 [facility] Last Admin: 10/03/16 06:10 Dose: 0.1 mg Sevelamer Carbonate (Renvela) 800 mg PO TIDWM [facility] Last Admin: 10/03/16 17:04 Dose: 800 mg Tramadol HCl (Ultram) 50 mg PO Q6H PRN PRN Reason: Pain Last Admin: 10/02/16 23:42 Dose: 50 mg Review of Systems All systems: negative (as noted in the history of present illness) Exam - Vital Signs Vital signs: Vital Signs Temp Pulse Resp BP 98.2 F 84 18 200/80 10/02/16 14:48 10/02/16 14:48 10/02/16 14:48 10/02/16 14:48 - Physical Exam Narrative exam: Middle-aged -[place]in[place] female lying in bed in no acute distress HEENT normocephalic atraumatic, pupils equal reactive to light, pink, clear oropharynx Neck supple, no thyromegaly no jugular venous distention CVS S1-S2 regular rate rhythm without murmur, rub or gallop Chest clear to auscultation Abdomen soft nondistended nontender no organomegaly no bruit bowel sounds present Extremities no edema no cyanosis or clubbing Neuro awake, alert oriented x3 no gross deficit Results - Lab Results 10/02/16 15:20 10/03/16 09:05 Most recent lab results Calcium 9.3 mg/dL (8.4-10.2) 10/03/16 09:05 Assessment and Plan - Patient Problems (1) Chest pain Current Visit: Yes Status: Acute Qualifiers: Chest pain type: unspecified Qualified Code(s): R07.9 - Chest pain, unspecified Plan to address problem: Status post recent percutaneous coronary intervention. Stress test per cardiology in the morning (2) ESRD (end stage renal disease) on dialysis Current Visit: No Status: Acute Plan to address problem: Hemodialysis in the morning for solute clearance. (3) Hypertensive chronic kidney disease with stage 5 chronic kidney disease or end stage renal disease Current Visit: No Status: Acute Plan to address problem: Resume anti-hypertensive medications and follow up blood pressure. 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
[2016-10-03] MEDS ORDERED: PROCRIT IV PRN (19:45)
[2016-10-03] MEDS: ULTRAM PO PRN (20:44)
[2016-10-04 05:44] LABS: Hemoglobin 9.1 gm/dl (10.1-14.3)
[2016-10-04] MEDS: NITRO DUR TD SCH (06:23)
[2016-10-04] MEDS ORDERED: LEXISCAN IV ONE (08:30)
--- NOTE | 2016-10-04 08:48 | Progress Note ---
Assessment and Plan Chest pain resolved Echo 08/2016: EF 50-55% (increased from ~30% in 2014) VQ scan: moderate LLL ventilation/perfusion match defect-->intermediate probability for PE? await stress test results NSTEMI type II troponin elevation likely due to ESRD CAD s/p recent PCI to RCA (09/14/16) [facility] 09/14/16: calcified coronary arteries large epicardial vessels, left main patent, LAD patent, circumflex patent, ramus patent, OM1 patent, diagonal 1 patent, 95% ostial proximal RCA-->successful PCI with a drug-eluting resolute 3.5 x 22 mm continue ASA, Plavix, statin, coreg, lisinopril Hypertension continue coreg/lisinopril Hyperlipidemia Peripheral arterial disease ESRD Tobacco abuse counseled on cessation Await stress test results. The patient has been seen in conjunction with Dr. Calvert who agrees with the assessment and plan of care. Subjective Date of service: 10/04/16 Principal diagnosis: chest pain Interval history: Pt. seen and examined in the stress lab this morning. No new complaints. Sinus rhythm on the monitor. Objective Last Vital Signs Temp 97.9 F 10/04/16 04:45 Pulse 79 10/04/16 04:45 Resp 20 10/04/16 04:45 BP 168/73 10/04/16 04:45 Pulse Ox 98 10/04/16 04:45 - Physical Examination General: No Apparent Distress HEENT: Positive: Normocephaly, Mucus Membranes Moist Neck: Positive: neck supple, trachea midline Cardiac: Positive: Reg Rate and Rhythm, S1/S2 Lungs: Positive: clear to auscultation Neuro: Positive: Grossly Intact Abdomen: Positive: Soft, Active Bowel Sounds. Negative: Tender Skin: Positive: Clear. Negative: Rash Extremities: Present: normal. Absent: edema - Labs and Meds Cardiac Enzymes 10/03/16 10/03/16 Range/Units 12:18 18:56 CK-MB (CK-2) 1.4 2.0 (0.0-4.0) ng/mL CBC 10/04/16 Range/Units 05:26 Hgb 9.1 L (10.1-14.3) gm/dl Hct 28.0 L (30.3-42.9) % Plt Count 231 (140-440) K/mm3 Comprehensive Metabolic Panel 10/03/16 Range/Units 09:05 Sodium 141 (137-145) mmol/L Potassium 5.2 H D (3.6-5.0) mmol/L Chloride 97.0 L (98-107) mmol/L Carbon Dioxide 30 (22-30) mmol/L BUN 48 H (7-17) mg/dL Creatinine 6.2 H (0.7-1.2) mg/dL Glucose 78 (65-100) mg/dL Calcium 9.3 (8.4-10.2) mg/dL - Imaging and Cardiology EKG: image reviewed Echo: report reviewed (08/2016: EF 50-55% ) - Telemetry EKG Rhythm: Sinus Rhythm - EKG Sinus rhythms and dysrhythmias: sinus rhythm Repolarization changes or abnormalities: nonspecific abnormality, ST segment, and/or T wave
[2016-10-04] MEDS: ASPIRIN PO SCH (11:43)
[2016-10-04] MEDS: SENSIPAR PO SCH (11:43)
[2016-10-04] MEDS: COREG PO SCH ×2 (11:44→21:33)
[2016-10-04] MEDS: LOVENOX SUB-Q SCH (11:44)
[2016-10-04] MEDS: LASIX PO SCH (11:44)
[2016-10-04] MEDS: ZYLOPRIM PO SCH (11:44)
[2016-10-04] MEDS: ZESTRIL PO SCH (11:44)
[2016-10-04] MEDS: PLAVIX PO SCH (11:44)
[2016-10-04] MEDS: RENVELA PO SCH ×2 (11:49→13:18)
--- NOTE | 2016-10-04 15:10 | Progress Note ---
[id number] to rule out pulmonary embolism. I discussed with nephrology. Continue aspirin and beta nikolas End-stage renal disease on hemodialysis. Nephrology managing Hypertension continue Coreg Coronary artery disease. s/p recent PCI on 09/14/16. Continue Aspirin Plavix beta blockers History Interval history: chest pain, no SOB no fever Hospitalist Physical - Constitutional Vitals: Temp Pulse Resp BP Pulse Ox 98.3 F 77 18 174/76 98 10/04/16 11:34 10/04/16 15:05 10/04/16 11:34 10/04/16 11:34 10/04/16 04:45 General appearance: Present: no acute distress - EENT ENT: hearing intact - Neck Neck: Present: supple - Respiratory Respiratory effort: normal Respiratory: bilateral: CTA, negative: diminished, rales, rhonchi, wheezing - Cardiovascular Rhythm: regular Heart Sounds: Present: S1 & S2 - Extremities Extremities: no ischemia, No edema, normal temperature, normal color - Abdominal General gastrointestinal: soft, non-tender, non-distended, normal bowel sounds - Integumentary Integumentary: Present: clear, warm, dry - Psychiatric Psychiatric: appropriate mood/affect, intact judgment & insight - Neurologic Neurologic: moves all extremities, other (AAO x 3) Results - Labs CBC & Chem 7: 10/04/16 05:26 10/05/16 09:05 Labs: Laboratory Last Values WBC 5.0 K/mm3 (4.5-11.0) 10/02/16 15:20 RBC 3.44 M/mm3 (3.65-5.03) L 10/02/16 15:20 Hgb 9.1 gm/dl (10.1-14.3) L 10/04/16 05:26 Hct 28.0 % (30.3-42.9) L 10/04/16 05:26 MCV 92 fl (79-97) 10/02/16 15:20 MCH 31 pg (28-32) 10/02/16 15:20 MCHC 34 % (30-34) 10/02/16 15:20 RDW 17.2 % (13.2-15.2) H 10/02/16 15:20 Plt Count 231 K/mm3 (140-440) 10/04/16 05:26 Lymph % (Auto) 21.3 % (13.4-35.0) 10/02/16 15:20 [place] % (Auto) 11.3 % (0.0-7.3) H 10/02/16 15:20 Eos % (Auto) 1.7 % (0.0-4.3) 10/02/16 15:20 Baso % (Auto) 0.8 % (0.0-1.8) 10/02/16 15:20 Lymph # 1.1 K/mm3 (1.2-5.4) L 10/02/16 15:20 [place] # 0.6 K/mm3 (0.0-0.8) 10/02/16 15:20 Eos # 0.1 K/mm3 (0.0-0.4) 10/02/16 15:20 Baso # 0.0 K/mm3 (0.0-0.1) 10/02/16 15:20 Seg Neutrophils % 64.9 % (40.0-70.0) 10/02/16 15:20 Seg Neutrophils # 3.2 K/mm3 (1.8-7.7) 10/02/16 15:20 PT 13.2 Sec. (12.2-14.9) 10/02/16 20:03 INR 1.01 (0.87-1.13) 10/02/16 20:03 APTT 32.3 Sec. (24.2-36.6) 10/02/16 20:03 D-Dimer 415.26 ng/mlDDU (0-234) H 10/02/16 17:00 Heparin Anti-Xa Level < 0.10 U.I./ml (0.3-0.7) L 10/03/16 04:49 Sodium 141 mmol/L (137-145) 10/03/16 09:05 Potassium 5.2 mmol/L (3.6-5.0) H D 10/03/16 09:05 Chloride 97.0 mmol/L (98-107) L 10/03/16 09:05 Carbon Dioxide 30 mmol/L (22-30) 10/03/16 09:05 Anion Gap 19 mmol/L 10/03/16 09:05 BUN 48 mg/dL (7-17) H 10/03/16 09:05 Creatinine 6.2 mg/dL (0.7-1.2) H 10/03/16 09:05 Estimated GFR 8 ml/min 10/03/16 09:05 BUN/Creatinine Ratio 7.74 % 10/03/16 09:05 Glucose 78 mg/dL (65-100) 10/03/16 09:05 Calcium 9.3 mg/dL (8.4-10.2) 10/03/16 09:05 Total Creatine Kinase 24 units/L (30-135) L 10/03/16 18:56 CK-MB (CK-2) 2.0 ng/mL (0.0-4.0) 10/03/16 18:56 CK-MB (CK-2) Rel Index 8.3 (0-4) H 10/03/16 18:56 Troponin T 0.091 ng/mL (0.00-0.029) H 10/03/16 18:56 Triglycerides 84 mg/dL (2-149) 10/02/16 20:03 Cholesterol 185 mg/dL (50-199) 10/02/16 20:03 LDL Cholesterol Direct 103 mg/dL (50-130) 10/02/16 20:03 HDL Cholesterol 66 mg/dL (40-59) H 10/02/16 20:03 Cholesterol/HDL Ratio 2.80 % 10/02/16 20:03
[2016-10-04] MEDS ORDERED: LOVENOX SUB-Q SCH ×2 (17:00→18:00)
--- NOTE | 2016-10-04 17:17 | Progress Note ---
Assessment and Plan - Patient Problems (1) Chest pain Current Visit: Yes Status: Acute Qualifiers: Chest pain type: unspecified Qualified Code(s): R07.9 - Chest pain, unspecified Plan to address problem: Status post recent percutaneous coronary intervention. Stress test per cardiology in the morningShowed no reversible ischemia. Patient had CT angiogram chest to exclude pulmonary embolism with the intermediate probability VQ scan (2) ESRD needing dialysis Current Visit: Yes Status: Acute Plan to address problem: Continue hemodialysis today and then on a Sunday, Sunday and Sunday schedule (3) Hypertensive chronic kidney disease with stage 5 chronic kidney disease or end stage renal disease Current Visit: No Status: Acute Plan to address problem: Resume anti-hypertensive medications and follow up blood pressure. 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 She complains of back pain. Chest pain has resolved. No shortness of breath. No nausea vomiting Objective - Exam Narrative Exam: Middle-aged -[place]ish female lying in bed in no acute distress HEENT normocephalic atraumatic, pupils equal reactive to light, pink, clear oropharynx Neck supple, no thyromegaly no jugular venous distention CVS S1-S2 regular rate rhythm without murmur, rub or gallop Chest clear to auscultation Abdomen soft nondistended nontender no organomegaly no bruit bowel sounds present Extremities no edema no cyanosis or clubbing Neuro awake, alert oriented x3 no gross deficit - Vital Signs Vital signs: Vital Signs - 12hr 10/04/16 10/04/16 10/04/16 11:34 15:05 15:45 Temperature 98.3 F 98.3 F Pulse Rate 77 81 Pulse Rate [ 88 From Monitor] Respiratory 18 16 Rate Blood Pressure 163/74 Blood Pressure 174/76 [Right Arm] 10/04/16 10/04/16 10/04/16 16:00 16:15 16:34 Temperature Pulse Rate 81 83 81 Pulse Rate [ From Monitor] Respiratory Rate Blood Pressure 163/74 161/68 157/74 Blood Pressure [Right Arm] - Lab 10/04/16 05:26 10/03/16 09:05 Most recent lab results Calcium 9.3 mg/dL (8.4-10.2) 10/03/16 09:05
[2016-10-04] MEDS ORDERED: NACL ONE (17:35)
[2016-10-04] MEDS: ULTRAM PO PRN (20:02)
--- NOTE | 2016-10-05 01:46 | Treadmill Report ---
PROCEDURE: Single-isotope dual study myocardial perfusion scan. DESCRIPTION OF PROCEDURE: The patient received 10 mCi of technetium 99m Myoview intravenously under resting conditions. Resting myocardial perfusion scan was done. Subsequently, the patient received 0.4 mg of Lexiscan intravenously. 28 mCi of technetium 99m myoview was given intravenously during the stress test. After 30-60 minutes, post stress images were done. Computerized reconstruction of the images was performed. The post-stress images revealed small mild inferior wall perfusion defect. Cinematic display of the gated study revealed mild global hypokinesia with mildly decreased ejection fraction of 46%. The resting images again revealed the perfusion defect seen in the stress images. CONCLUSION: 1. Small mild fixed inferior wall perfusion defect. 2. Gated study revealed mild global hypokinesia. 3. Mildly decreased left ventricular ejection fraction of 46% (mild global left ventricular systolic dysfunction). JOB# [id number] SHARRI/RODY PIZANO
[2016-10-05] MEDS: NITRO DUR TD SCH (05:41)
[2016-10-05] MEDS: RENVELA PO SCH ×3 (07:30→12:47)
[2016-10-05] MEDS ORDERED: NACL ONE (08:33)
--- NOTE | 2016-10-05 08:57 | Progress Note ---
Assessment and Plan - Patient Problems (1) Chest pain Current Visit: Yes Status: Acute Qualifiers: Chest pain type: unspecified Qualified Code(s): R07.9 - Chest pain, unspecified Plan to address problem: Status post recent percutaneous coronary intervention. Stress test per cardiology in the morningShowed no reversible ischemia. Patient had CT angiogram chest to exclude pulmonary embolism with the intermediate probability VQ scanPatient did not have the CT angiogram yesterday. She will go for the CT angiogram today. If negative, she can be discharged home thereafter and will get dialysis at the outpatient dialysis clinic tomorrow (2) ESRD needing dialysis Current Visit: Yes Status: Acute Plan to address problem: Continue hemodialysis today and then on a Sunday, Sunday and Sunday schedule (3) Hypertensive chronic kidney disease with stage 5 chronic kidney disease or end stage renal disease Current Visit: No Status: Acute Plan to address problem: Resume anti-hypertensive medications and follow up blood pressure. Adjust medications if still not at goalWill increase carvedilol to 25 mg twice a day (4) Tobacco abuse Current Visit: No Status: Chronic Plan to address problem: Smoking cessation counseling (5) Anemia in end-stage renal disease Current Visit: Yes Status: Acute Plan to address problem: Give erythropoietin on dialysis (6) Coronary artery disease due to calcified coronary lesion Current Visit: Yes Status: Acute Plan to address problem: Continue management by chief power dispatcher Subjective Date of service: 10/05/16 Principal diagnosis: chest pain Interval history: Patient seen lying in bed. No new complaints. Chest pain has resolved. No shortness of breath. No nausea vomiting Objective - Exam Narrative Exam: Middle-aged -[place] female lying in bed in no acute distress HEENT normocephalic atraumatic, pupils equal reactive to light, pink, clear oropharynx Neck supple, no thyromegaly no jugular venous distention CVS S1-S2 regular rate rhythm without murmur, rub or gallop Chest clear to auscultation Abdomen soft nondistended nontender no organomegaly no bruit bowel sounds present Extremities no edema no cyanosis or clubbing Neuro awake, alert oriented x3 no gross deficit - Vital Signs Vital signs: Vital Signs - 12hr 10/05/16 10/05/16 10/05/16 00:40 04:00 04:40 Temperature 98.3 F 98.4 F Pulse Rate 79 Pulse Rate [ 80 86 From Monitor] Pulse Rate [ Radial] Respiratory 18 18 Rate Blood Pressure 176/78 174/79 [Right Arm] O2 Sat by Pulse 100 100 Oximetry 10/05/16 10/05/16 08:15 08:38 Temperature 98.5 F 97.8 F Pulse Rate Pulse Rate [ 79 From Monitor] Pulse Rate [ 80 Radial] Respiratory 18 18 Rate Blood Pressure 176/88 176/88 [Right Arm] O2 Sat by Pulse 100 96 Oximetry - Lab 10/04/16 05:26 10/03/16 09:05 Most recent lab results Calcium 9.3 mg/dL (8.4-10.2) 10/03/16 09:05
--- NOTE | 2016-10-05 09:21 | Progress Note ---
Assessment and Plan Chest pain resolved Echo 08/2016: EF 50-55% (increased from ~30% in 2014) VQ scan: moderate LLL ventilation/perfusion match defect-->intermediate probability for PE-->await chest CTA findings stress MPI: small mild fixed inferior wall defect NSTEMI type II troponin elevation likely due to ESRD CAD s/p recent PCI to RCA (09/14/16) [facility] 09/14/16: calcified coronary arteries large epicardial vessels, left main patent, LAD patent, circumflex patent, ramus patent, OM1 patent, diagonal 1 patent, 95% ostial proximal RCA-->successful PCI with a drug-eluting resolute 3.5 x 22 mm continue ASA, Plavix, statin, coreg, lisinopril Hypertension continue coreg/lisinopril Hyperlipidemia Peripheral arterial disease ESRD Tobacco abuse counseled on cessation Given resolution of chest pain and only a small, mild fixed inferior defect on stress imaging, recommend continuing medical management and aggressive risk factor modification. I stressed the importance of medication compliance including aspirin and Plavix and she expresses understanding. The patient has been seen in conjunction with Dr. Calvert who agrees with the assessment and plan of care. Subjective Date of service: 10/05/16 Principal diagnosis: chest pain Interval history: The patient is resting in bed. No further chest pain. Sinus rhythm on the monitor. Objective Last Vital Signs Temp 97.8 F 10/05/16 08:38 Pulse 81 10/05/16 11:15 Resp 18 10/05/16 08:38 BP 181/77 10/05/16 09:43 Pulse Ox 96 10/05/16 08:38 - Physical Examination General: No Apparent Distress HEENT: Positive: Normocephaly, Mucus Membranes Moist Neck: Positive: neck supple, trachea midline Cardiac: Positive: Reg Rate and Rhythm, S1/S2 Lungs: Positive: clear to auscultation Neuro: Positive: Grossly Intact Abdomen: Positive: Soft, Active Bowel Sounds. Negative: Tender Skin: Positive: Clear. Negative: Rash Extremities: Present: normal. Absent: edema - Imaging and Cardiology EKG: image reviewed Echo: report reviewed (08/2016: EF 50-55% ) - Telemetry EKG Rhythm: Sinus Rhythm - EKG Sinus rhythms and dysrhythmias: sinus rhythm Repolarization changes or abnormalities: nonspecific abnormality, ST segment, and/or T wave
[2016-10-05] MEDS ORDERED: COREG PO SCH (10:00)
[2016-10-05 10:07] LABS: BUN/Creatinine Ratio 6.29; Calcium 8.9 mg/dL (8.4-10.2); Chloride 98.6 mmol/L (98-107); Potassium 4.7 mmol/L (3.6-5.0)
[2016-10-05] MEDS: PLAVIX PO SCH (10:18)
[2016-10-05] MEDS: ASPIRIN PO SCH (10:18)
[2016-10-05] MEDS: ZESTRIL PO SCH (10:18)
[2016-10-05] MEDS: LASIX PO SCH (10:18)
[2016-10-05] MEDS: SENSIPAR PO SCH (10:18)
[2016-10-05] MEDS: ZYLOPRIM PO SCH (10:18)
[2016-10-05] MEDS: ULTRAM PO PRN (10:22)
[2016-10-05 12:39] VITALS: BP 175/76
--- NOTE | 2016-10-05 14:01 | Cat Scan Report ---
CT ANGIOGRAPHY OF THE CHEST WITH 3-D RECONSTRUCTED IMAGES: FINDINGS: Comparison is made to a previous study on September 13, 2016. There is no evidence of pulmonary emboli. A 1 cm round hypodensity with calcifications is seen in the right lobe of the thyroid, unchanged. Extensive calcifications in the left lobe of the thyroid are also unchanged. The lungs are clear. Minimal parenchymal scarring is seen in each lung base. There is no pleural fluid. A small bleb is noted in the superior segment of the right lower lobe. No suspicious bony findings are seen. Schmorl's nodes are noted in the lower thoracic vertebra. IMPRESSION: 1. No evidence of pulmonary emboli. 2. Bilateral thyroid nodules with calcifications, unchanged since the previous study.
--- NOTE | 2016-10-05 15:12 | Discharge Summary ---
Providers - Providers Date of Admission: 10/02/16 22:40 Date of discharge: 10/05/16 Attending physician: CON WARNER 10/02/16 23:27 Consult to Physician [CONS] Routine Consulting Provider: NOAH UREÑA Reason For Exam: ESRD on HD Place consult to:: Dr. Cantu Notified:: PLEASE CALL MD IN AM Was contact made?: No 10/03/16 11:56 Consult to Physician [CONS] Routine Consulting Provider: DIMITRIOS MOLINA Reason For Exam: chest pain, CAD recent cath Place consult to:: Dr. Molina Notified:: lazarus Was contact made?: Yes Primary care physician: F[employer]ATION PLANT SUPERVISOR Hospitalization Condition: Fair Hospital course: Patient is 66 yo with CAD, ESRD on dialysis. She presents with chest pain. Initial troponin was mild elevated 0.098. She was admitted and Cardiology and Nephrology were consulted. Cardiology recommended stress test and this did not show any ischemia but show mild fixed defect and therfore medical management was recommended. With essentially negative stress test, CT Angio chest was done and was negative for pulmonary embolism. By then, chest pain had resolved. She was then discharged home on Aspirin Plavix, Coreg, Lipitor. Chest pain, non cardiac , due to GERD. Total time spent on discharge, 34 mins. Disposition: DISCHARGED TO HOME OR SELFCARE - Discharge Diagnoses (1) Chest pain Status: Acute Qualifiers: Chest pain type: unspecified Qualified Code(s): R07.9 - Chest pain, unspecified Comment: due to GERD (2) GERD (gastroesophageal reflux disease) Status: Acute Qualifiers: Esophagitis presence: E (3) HTN (hypertension) Status: Chronic Qualifiers: Hypertension type: essential hypertension Qualified Code(s): I10 - Essential (primary) hypertension (4) Hyperkalemia Status: Acute (5) ESRD needing dialysis Status: Chronic (6) CAD (coronary artery disease) Status: Chronic Qualifiers: Coronary Disease-Associated Artery/Lesion type: [place] artery [place] vs. transplanted heart: [place] heart Associated angina: without angina Qualified Code(s): I25.10 - Atherosclerotic heart disease of [place] coronary artery without angina pectoris Core Measure Documentation - Palliative Care Palliative Care/ Comfort Measures: Not Applicable - Core Measures Any of the following diagnoses?: none Exam - Constitutional Vitals: Temp Pulse Resp BP Pulse Ox 98.6 F 81 18 175/76 95 01/19/17 12:37 10/05/16 12:37 10/05/16 12:37 10/05/16 12:37 10/05/16 12:37 Plan Activity: advance as tolerated Diet: low fat, low cholesterol, low salt, renal Additional Instructions: 1. Follow up with Primary care physician in 3-5 days. 2. Follow bilateral thyroid nodules and calcification with primary care physician in 3-5 days. 3. Follow-up with cardiology in 1 week. 4. Continue routine hemodialysis Follow up with: PRIMARY CARE, [Primary Care Provider] - 3-5 Days Prescriptions: AtorvaSTATin [Lipitor] 40 mg PO QHS #30 tablet Pantoprazole [Protonix TAB] 40 mg PO QDAY #30 tablet
== END 2016-10-05 16:44 | disposition home or self-care (01) | DRG 280 ==
LOC: ED 14:40 → 4A 22:40
PROVIDERS: ADMIT Family Medicine; ATTEND Internal Medicine
PROC: 5A1D60Z (ICD-10-PCS; principal; 2016-10-04)
DX: I21.4 Non-ST elevation (NSTEMI) myocardial infarction (principal); N18.6 End stage renal disease; I13.2 Hypertensive heart and chronic kidney disease with heart failure and with stage 5 chronic kidney disease, or end stage renal disease; E78.5 Hyperlipidemia, unspecified; I25.10 Atherosclerotic heart disease of native coronary artery without angina pectoris; I50.9 Heart failure, unspecified; E11.22 Type 2 diabetes mellitus with diabetic chronic kidney disease; M19.90 Unspecified osteoarthritis, unspecified site; F17.210 Nicotine dependence, cigarettes, uncomplicated; E87.6 Hypokalemia; E11.51 Type 2 diabetes mellitus with diabetic peripheral angiopathy without gangrene; D63.1 Anemia in chronic kidney disease; E87.5 Hyperkalemia; K21.9 Gastro-esophageal reflux disease without esophagitis; Z86.73 Personal history of transient ischemic attack (TIA), and cerebral infarction without residual deficits; Z99.2 Dependence on renal dialysis; Z90.49 Acquired absence of other specified parts of digestive tract; Z98.51 Tubal ligation status; Z79.899 Other long term (current) drug therapy; Z82.49 Family history of ischemic heart disease and other diseases of the circulatory system; Z95.5 Presence of coronary angioplasty implant and graft; Z71.6 Tobacco abuse counseling; Z84.1 Family history of disorders of kidney and ureter
CPT/HCPCS: 36415; 71010; 71275; 78452; 78582; 80048; 80061; 82550; 82553; 84484; 85014; 85018; 85025; 85049; 85379; 85520; 85610; 85730; 93005; 93010; 93017; 96374; 96375; 99406; A9270-GY; A9502; A9540; A9558; J0885; J1644; J1650; J2270; J2785; Q9967

== ENCOUNTER 2016-10-16 06:03 | Inpatient (IN) | payer MEDICARE ==
--- NOTE | 2016-10-16 06:12 | Emergency Department Report ---
Stated Complaint: CHEST PAIN Time Seen by Provider: 10/16/16 06:11 - HPI History of Present Illness: Patient here reports that she gets dialysis on Wednesdays and Fridays and she missed her dialysis on Sunday medication was told that she had the flu and she had to stay home. Patient came by ambulance who report that patient was complaining the chest pain but patient here reporting pain across her upper abdomen going around her back. Says she was short of breath but she is not having any shortness of breath now. Her last dialysis was Sunday and she has a left arm fistula. Patient with end-stage renal disease on dialysis. - ROS Review of Systems: all Systems are negative unless stated in HPI above. - Exam Vital Signs: Vital Signs 10/16/16 06:09 Temperature 98.4 F Pulse Rate 98 H Respiratory 18 Rate Blood Pressure 154/76 O2 Sat by Pulse 96 Oximetry Physical Exam: General: This is a 66-year-old female that is nontoxic in appearance. Lungs: Clear to auscultate bilaterally, no rhonchi wheezes or rales. Normal work of breathing. CV: S1, S2. Regular rate and rhythm. Fistula to left arm with good thrill MSE screening note: Focused history and physical exam performed. Due to findings the following was ordered:see mdm ED Medical Decision Making - Medical Decision Making Medical decision making: Patient seen by provider in triage area. Appropriate protocol activated and patient to main ED to be seen by physician. ED Disposition for MSE Condition: Stable
[2016-10-16 06:59] LABS: Basophils % (Auto) 0.5 % (0.0-1.8); Eosinophils % (Auto) 0.5 % (0.0-4.3); Hematocrit 31.1 % (30.3-42.9); Hemoglobin 10.1 gm/dl (10.1-14.3); Mean Corpuscular HGB Conc 33 % (30-34); Mean Corpuscular Hemoglobin 31 pg (28-32); Mean Corpuscular Volume 95 fl (79-97); Platelet Count 296 K/mm3 (140-440); Red Blood Count 3.28 M/mm3 (3.65-5.03); Red Cell Distribution Width 19.9 % (13.2-15.2); White Blood Count 8.1 K/mm3 (4.5-11.0)
[2016-10-16 07:09] LABS: Creatine Kinase MB 2.8 ng/mL (0.0-4.0)
[2016-10-16 07:13] LABS: Albumin 3.1 g/dL (3.9-5); Albumin/Globulin Ratio 0.7 %; BUN/Creatinine Ratio 5.86; Bilirubin,Total 0.3 mg/dL (0.1-1.2); Calcium 9.2 mg/dL (8.4-10.2); Chloride 95.2 mmol/L (98-107); Total Protein 7.3 g/dL (6.3-8.2)
[2016-10-16 07:14] LABS: Potassium 6.8 mmol/L (3.6-5.0)
[2016-10-16] MEDS ORDERED: D50W (25GM) IV ONE ×2 (07:41→08:08)
[2016-10-16] MEDS ORDERED: PROVENTIL IH ONE (07:41)
[2016-10-16] MEDS ORDERED: NITROSTAT SL PRN (07:41)
[2016-10-16] MEDS ORDERED: BABY ASPIRIN PO ONE (07:41)
--- NOTE | 2016-10-16 07:51 | Emergency Department Report ---
ED General Adult HPI - General Chief complaint: Abdominal Pain Stated complaint: CHEST PAIN Time Seen by Provider: 10/16/16 06:11 Source: patient, EMS (ems notes not available at time of chart dictation), RN notes reviewed, old records reviewed Mode of arrival: Wheelchair Limitations: No Limitations - History of Present Illness Initial comments: This is a 66-year-old female, she is previously unknown to me. Has a past medical history of hypertension, end-stage renal disease on dialysis Sunday, Sunday, Sunday. Last dialysis session was last Sunday. Missed dialysis on Sunday, and was supposed to have dialysis today. She reports recently being diagnosed with influenza on Sunday, and started on the "flu medication." She presents to the ER complaining of abdominal pain. Abdominal pain is epigastric , right upper quadrant, radiates to the back. It increases with palpation, and decreases with rest. She did endorse some shortness of breath, this has since resolved. The patient was recently admitted, and had a negative CT angiogram of the chest for pulmonary embolus. Has mild shortness of breath. Symptoms are constant. Increased with palpation , physical exertion, decreased with rest. -: Gradual Location: abdomen Radiation: back Quality: aching Consistency: intermittent Improves with: rest Worsens with: movement Associated Symptoms: cough, loss of appetite, weakness - Related Data Home Medications Medication Instructions Recorded Confirmed Last Taken Allopurinol [Zyloprim] 100 mg PO DAILY 08/03/14 10/16/16 10/14/16 Cinacalcet [Sensipar] 60 mg PO QDAY 09/13/16 10/16/16 10/14/16 Docusate Sodium [Colace CAP] 100 mg PO BID PRN 09/13/16 10/16/16 10/14/16 Furosemide [Lasix TAB] 20 mg PO QDAY 09/13/16 10/16/16 10/14/16 Sevelamer Carbonate [Renvela] 800 mg PO TIDWM 09/13/16 10/16/16 10/14/16 Carvedilol [Coreg] 12.5 mg PO BID 10/16/16 10/16/16 10/14/16 Previous Rx's Medication Instructions Recorded Last Taken Type Lisinopril [Zestril TAB] 20 mg PO QDAY #30 tablet 12/13/13 10/14/16 Rx AtorvaSTATin [Lipitor] 40 mg PO QHS #30 tablet 10/05/16 10/14/16 Rx Pantoprazole [Protonix] 40 mg PO QDAY #30 tablet 10/05/16 10/14/16 Rx Allergies Allergy/AdvReac Type Severity Reaction Status Date / Time No Known Allergies Allergy Verified 12/09/13 08:59 ED Review of Systems ROS: Stated complaint: CHEST PAIN Other details as noted in HPI Constitutional: malaise, weakness Eyes: denies: vision change Respiratory: see HPI Cardiovascular: chest pain Gastrointestinal: abdominal pain Genitourinary: as per HPI Musculoskeletal: as per HPI Skin: as per HPI Neurological: weakness Psychiatric: as per HPI ED Past Medical Hx - Past Medical History Previous Medical History?: Yes Hx Hypertension: Yes Hx CVA: Yes (x 2) Hx Congestive Heart Failure: Yes Hx Diabetes: Yes Hx GERD: Yes Hx Renal Disease: Yes (ESRD/dialysis M, W, F) Hx Arthritis: Yes Additional medical history: enlarged heart, gout - Surgical History Hx Appendectomy: Yes Additional Surgical History: tubal ligation, vas cath. LUE fistula - Social History Smoking Status: Current Every Day Smoker - Medications Home Medications: Home Medications Medication Instructions Recorded Confirmed Last Taken Type Lisinopril [Zestril TAB] 20 mg PO QDAY #30 tablet 12/13/13 10/16/16 10/14/16 Rx Allopurinol [Zyloprim] 100 mg PO DAILY 08/03/14 10/16/16 10/14/16 History Cinacalcet [Sensipar] 60 mg PO QDAY 09/13/16 10/16/16 10/14/16 History Docusate Sodium [Colace CAP] 100 mg PO BID PRN 09/13/16 10/16/16 10/14/16 History Furosemide [Lasix TAB] 20 mg PO QDAY 09/13/16 10/16/16 10/14/16 History Sevelamer Carbonate [Renvela] 800 mg PO TIDWM 09/13/16 10/16/16 10/14/16 History AtorvaSTATin [Lipitor] 40 mg PO QHS #30 tablet 10/05/16 10/16/16 10/14/16 Rx Pantoprazole [Protonix] 40 mg PO QDAY #30 tablet 10/05/16 10/16/1617 Rx Carvedilol [Coreg] 12.5 mg PO BID 10/16/16 10/16/16 10/14/16 History ED Physical Exam - General Limitations: No Limitations General appearance: alert, in no apparent distress - Head Head exam: Present: atraumatic, normocephalic - Eye Eye exam: Present: normal appearance, EOMI. Absent: nystagmus - ENT ENT exam: Present: normal exam, normal orophraynx, mucous membranes moist, normal external ear exam - Neck Neck exam: Present: normal inspection, full ROM. Absent: tenderness, meningismus - Respiratory Respiratory exam: Present: wheezes, rhonchi. Absent: respiratory distress - Cardiovascular Cardiovascular Exam: Present: normal rhythm, tachycardia, normal heart sounds. Absent: systolic murmur, diastolic murmur, rubs, gallop - GI/Abdominal GI/Abdominal exam: Present: soft, tenderness, normal bowel sounds, other (there is epigastric tenderness to palpation. There is negative Hicks sign.). Absent : distended, guarding, pulsatile mass - Extremities Exam Extremities exam: Present: normal inspection, full ROM, normal capillary refill , other (left upper extremity AV fistula, with appropriate thrill.). Absent: tenderness, calf tenderness - Back Exam Back exam: Present: normal inspection, full ROM. Absent: tenderness, CVA tenderness (R), CVA tenderness (L), muscle spasm, paraspinal tenderness, vertebral tenderness - Neurological Exam Neurological exam: Present: alert, oriented X3, other (Extraocular movements intact. Tongue midline. No facial droop. Facial sensation intact to light touch in the V1, V2, V3 distribution bilaterally. 5 and 5 strength in 4 extremities.. Sensation is intact to light touch in 4 extremities.). Absent: motor sensory deficit - Psychiatric Psychiatric exam: Present: normal affect, normal mood - Skin Skin exam: Present: warm, dry, intact, normal color. Absent: rash ED Course Vital Signs 10/16/16 10/16/16 10/16/16 06:09 08:49 09:59 Temperature 98.4 F Pulse Rate 98 H Pulse Rate [ 99 H 101 H Anterior Bilateral Throughout] Pulse Rate [ From Monitor] Respiratory 18 Rate Respiratory 20 20 Rate [Anterior Bilateral Throughout] Blood Pressure 154/76 Blood Pressure [Right Arm] Blood Pressure [Right] O2 Sat by Pulse 96 Oximetry 10/16/16 10/16/16 10/16/16 10:15 12:23 12:40 Temperature 98.1 F Pulse Rate 103 H 103 H Pulse Rate [ Anterior Bilateral Throughout] Pulse Rate [ From Monitor] Respiratory 16 16 20 Rate Respiratory Rate [Anterior Bilateral Throughout] Blood Pressure 182/89 Blood Pressure [Right Arm] Blood Pressure 166/71 [Right] O2 Sat by Pulse 99 Oximetry 10/16/16 12:44 Temperature 98.1 F Pulse Rate Pulse Rate [ Anterior Bilateral Throughout] Pulse Rate [ 105 H From Monitor] Respiratory 22 Rate Respiratory Rate [Anterior Bilateral Throughout] Blood Pressure Blood Pressure 179/85 [Right Arm] Blood Pressure [Right] O2 Sat by Pulse 97 Oximetry - Reevaluation(s) Reevaluation #1: 10/16/16 07:49 Differential diagnosis: Hyperkalemia, volume overload, end-stage renal disease on dialysis, gastritis, pancreatitis, biliary disease, acute coronary syndrome, pneumonia Assessment and plan: 66-year-old female with epigastric tenderness, abdominal pain, resolved shortness of breath, resolved chest pain, found to be hyperkalemic to 6.8. Sodium is 139, chloride is 95. Elevated troponin is appreciated, this is most likely in the context of her known renal insufficiency. A noncontrast CT scan of abdomen and pelvis is ordered. We will treat her symptomatically, and treat her medically for her hyperkalemia. The case was discussed with the Hospital physician, Dr. Rees, who accepted the patient to his service. Case is discussed with covering tool design drafter, Dr. Márquez, who is going to arrange dialysis. 10/16/16 15:24 Reevaluation #2: ct a/p negative 10/16/16 15:24 ED Medical Decision Making - Lab Data Result diagrams: 10/16/16 06:30 10/16/16 06:30 Vital Signs 10/16/16 06:09 Temperature 98.4 F Pulse Rate 98 H Respiratory 18 Rate Blood Pressure 154/76 O2 Sat by Pulse 96 Oximetry Lab Results 10/16/16 10/16/16 10/16/16 Range/Units 06:30 06:30 06:30 WBC 8.1 (4.5-11.0) K/mm3 RBC 3.28 L (3.65-5.03) M/mm3 Hgb 10.1 (10.1-14.3) gm/dl Hct 31.1 (30.3-42.9) % MCV 95 (79-97) fl MCH 31 (28-32) pg MCHC 33 (30-34) % RDW 19.9 H (13.2-15.2) % Plt Count 296 (140-440) K/mm3 Lymph % (Auto) 19.5 (13.4-35.0) % [place] % (Auto) 10.4 H (0.0-7.3) % Eos % (Auto) 0.5 (0.0-4.3) % Baso % (Auto) 0.5 (0.0-1.8) % Lymph # 1.6 (1.2-5.4) K/mm3 [place] # 0.8 (0.0-0.8) K/mm3 Eos # 0.0 (0.0-0.4) K/mm3 Baso # 0.0 (0.0-0.1) K/mm3 Seg Neutrophils % 69.1 (40.0-70.0) % Seg Neutrophils # 5.6 (1.8-7.7) K/mm3 Potassium 6.8 H* (3.6-5.0) mmol/L Carbon Dioxide 18 L (22-30) mmol/L BUN 95 H (7-17) mg/dL Creatinine 16.2 H (0.7-1.2) mg/dL Estimated GFR 3 ml/min BUN/Creatinine Ratio 5.86 % Glucose 92 (65-100) mg/dL Calcium 9.2 (8.4-10.2) mg/dL Total Bilirubin 0.3 (0.1-1.2) mg/dL AST 13 (5-40) units/L ALT 7 (7-56) units/L Alkaline Phosphatase 98 (35-129) units/L Total Creatine Kinase (30-135) units/L CK-MB (CK-2) (0.0-4.0) ng/mL CK-MB (CK-2) Rel Index (0-4) Troponin T 0.116 H* (0.00-0.029) ng/mL Total Protein 7.3 (6.3-8.2) g/dL Albumin 3.1 L (3.9-5) g/dL Albumin/Globulin Ratio 0.7 % Triglycerides 77 (2-149) mg/dL Cholesterol 163 (50-199) mg/dL LDL Cholesterol Direct 94 (50-130) mg/dL HDL Cholesterol 54 (40-59) mg/dL Cholesterol/HDL Ratio 3.01 % Amylase 52 (27-131) units/L Lipase 19 (13-60) units/L // Range/Units 06:30 WBC (4.5-11.0) K/mm3 RBC (3.65-5.03) M/mm3 Hgb (10.1-14.3) gm/dl Hct (30.3-42.9) % MCV (79-97) fl MCH (28-32) pg MCHC (30-34) % RDW (13.2-15.2) % Plt Count (140-440) K/mm3 Lymph % (Auto) (13.4-35.0) % [place] % (Auto) (0.0-7.3) % Eos % (Auto) (0.0-4.3) % Baso % (Auto) (0.0-1.8) % Lymph # (1.2-5.4) K/mm3 [place] # (0.0-0.8) K/mm3 Eos # (0.0-0.4) K/mm3 Baso # (0.0-0.1) K/mm3 Seg Neutrophils % (40.0-70.0) % Seg Neutrophils # (1.8-7.7) K/mm3 Potassium (3.6-5.0) mmol/L Carbon Dioxide (22-30) mmol/L BUN (7-17) mg/dL Creatinine (0.7-1.2) mg/dL Estimated GFR ml/min BUN/Creatinine Ratio % Glucose (65-100) mg/dL Calcium (8.4-10.2) mg/dL Total Bilirubin (0.1-1.2) mg/dL AST (5-40) units/L ALT (7-56) units/L Alkaline Phosphatase (35-129) units/L Total Creatine Kinase 62 (30-135) units/L CK-MB (CK-2) 2.8 (0.0-4.0) ng/mL CK-MB (CK-2) Rel Index 4.5 H (0-4) Troponin T (0.00-0.029) ng/mL Total Protein (6.3-8.2) g/dL Albumin (3.9-5) g/dL Albumin/Globulin Ratio % Triglycerides (2-149) mg/dL Cholesterol (50-199) mg/dL LDL Cholesterol Direct (50-130) mg/dL HDL Cholesterol (40-59) mg/dL Cholesterol/HDL Ratio % Amylase (27-131) units/L Lipase (13-60) units/L - EKG Data 10/16/16 07:51 normal sinus, 99 beats per minute, QTC prolonged at 521 ms, nonspecific T-wave abnormality, poor R-wave progression, nonspecific conduction delay, abnormal EKG, not consistent with STEMI, appears grossly unchanged when compared to prior EKG from 10/02/2016. - Radiology Data Radiology results: report reviewed, image reviewed xr chest neg ct a/p neg Critical care attestation.: If time is entered above; I have spent that time in minutes in the direct care of this critically ill patient, excluding procedure time. ED Disposition Clinical Impression: ESRD (end stage renal disease) on dialysis, Hyperkalemia Disposition: OP ADMITTED IP TO THIS HOSP Is pt being admited?: Yes Condition: Good
[2016-10-16] MEDS ORDERED: SODIUM BICARBONATE IV ONE ×2 (08:00→08:08)
--- NOTE | 2016-10-16 08:00 | Admit Criteria Form ---
Admission Criteria Documentation: RENAL FAILURE, CHRONIC Clinical Indications for Admission to Inpatient Care (Place 'X' for any and all applicable criteria): Admission is indicated for ANY ONE of the following (1)(2)(3)(4)(5): [X]I. Inpatient admission required rather than observation care (Use Renal Failure, Chronic: Observation Care Criteria as appropriate) because of ANY ONE of the following: [ ]a) Volume overload or uremic symptoms (eg, clinically significant pulmonary edema, hypertension, pericarditis, acidosis) too severe for, or not responsive (eg, for over 24 hours) to emergency department or observation care dialysis or treatment regimen (11) [ ]b) Hemodynamic instability that is severe or persistent [ ]c) Respiratory distress that is severe or persistent (11) [X]d) Clinically significant electrolyte abnormality that requires inpatient care (eg,hyperkalemia with severe ECG findings)[B] [ ]e) Supplement O2 or respiratory therapy for over 24hrs that is performable only in acute inpatient setting [ ]f) Continuous IV infusion of anticoagulation, platelet inhibitor, vasoactive, or Antiarrhythmic medication (15), [ ]g) Pulmonary artery catheter monitoring [ ]h) Temporary pacemaker placement [ ]i) Emergent pericardiocentesis [ ]j) Other condition, treatment or monitoring requiring inpatient admission [ ]II. Unexplained syncope [A] [ ]III. Recurrent seizures [ ]IV. Severe infections not treatable in outpatient setting (eg, peritonitis)(9 ) [ ]V. Cardiac arrhythmias of immediate concern [ ]. Encephalopathy [ ]VII.Bleeding abnormalities (eg, platelet dysfunction) with active (eg, gastrointestinal) bleeding Extended stay beyond goal length of stay may be needed for (3)(4)(35)(36): [ ]a) Continuing uremic complications [ ]b) Comorbidities or complications The original [employer] content created by [employer] has been revised. The portions of the content which have been revised are identified through the use of italic text or in bold, and [email or web address] has neither reviewed nor approved the modified material. All other unmodified content is copyright [employer]. Please see references footnoted in the original [employer] edition 2016
[2016-10-16] MEDS ORDERED: BABY ASPIRIN ONE (08:08)
[2016-10-16] MEDS ORDERED: NACL 0.9% 1000 ML 100 ML IV PRN (08:28)
--- NOTE | 2016-10-16 08:31 | XRay Report ---
PORTABLE CHEST: An AP portable view of the chest demonstrates a normal cardiac contour considering the limits of this technique. The lungs are clear with no evidence of infiltrate, fluid or failure. IMPRESSION: Normal portable chest.
--- NOTE | 2016-10-16 10:07 | Cat Scan Report ---
CT OF THE ABDOMEN AND PELVIS WITHOUT CONTRAST HISTORY: Abdominal pain. TECHNIQUE: Helical CT without contrast. Sagittal and coronal reformatted images. FINDINGS: Compared to 09/13/26. The multiple fluid collections, or less likely masses, within the liver have essentially resolved since 09/13/16 exam. There is minimal hypodensity remaining in the liver at the assumed abscess sites consistent with scarring. No new liver abnormality is detected. The biliary system, pancreas, spleen and adrenal glands remain unremarkable. Both kidneys are atrophic but no sign of obstruction. Diffuse aortic calcifications. The bowel loops are normal caliber and wall thickening given no oral contrast was administered. The appendix is not confidently identified. No bowel obstruction. Uterus, adnexa and bladder are unremarkable. No ascites, free air or advanced inflammatory changes. Heart size is borderline or mildly increased. The visualized lung bases are clear. No suspicious bony lesion or fracture. IMPRESSION: Resolution or near resolution of the suspected liver abscesses since 09/13/16. Chronic renal atrophy Borderline heart size. No acute inflammatory process is appreciated.
--- NOTE | 2016-10-16 13:31 | Consultation ---
History of Present Illness - Reason for Consult Consult date: 10/16/16 end stage renal disease, accelerated hypertension Requesting physician: CON JAMES - History of Present Illness This is a 66-year-old female known to us from out patient dialysis, with a past medical history of hypertension, end-stage renal disease on dialysis Sunday, Sunday, Sunday schedule, Last dialysis session was last Sunday. Missed dialysis on Sunday presented to the ED with a c/o of epigastric/RUQ abdominal pain. Pain increases with palpation, and decreases with rest. Has some radiation to the back. No associated N/V/D. She also has shortness of breath. Initial labs in ED showed a potassium of 6.7. We are consulted to assist with management of her ESRD/and electrolyte abnormalities. 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 denies: alcohol abuse, prescription drug abuse, IV drug use Family history: hypertension (both parents and one brother), other (father of complications of rheumatic fever. Mother in her 60s with kidney failure. One brother was on dialysis before he ) Medications and Allergies Allergies Allergy/AdvReac Type Severity Reaction Status Date / Time No Known Allergies Allergy Verified 12/09/13 08:59 Home Medications Medication Instructions Recorded Confirmed Last Taken Type Lisinopril [Zestril TAB] 20 mg PO QDAY #30 tablet 12/13/13 10/16/16 10/14/16 Rx Allopurinol [Zyloprim] 100 mg PO DAILY 08/03/14 10/16/16 10/14/16 History Cinacalcet [Sensipar] 60 mg PO QDAY 09/13/16 10/16/16 10/14/16 History Docusate Sodium [Colace CAP] 100 mg PO BID PRN 09/13/16 10/16/16 10/14/16 History Furosemide [Lasix TAB] 20 mg PO QDAY 09/13/16 10/16/16 10/14/16 History Sevelamer Carbonate [Renvela] 800 mg PO TIDWM 09/13/16 10/16/1617 History AtorvaSTATin [Lipitor] 40 mg PO QHS #30 tablet 10/05/16 10/16/16 10/14/16 Rx Pantoprazole [Protonix] 40 mg PO QDAY #30 tablet 10/05/16 10/16/16 10/14/16 Rx Carvedilol [Coreg] 12.5 mg PO BID 10/16/16 10/16/16 10/14/16 History Active Meds: Active Medications Sodium Chloride (Nacl 0.9% 1000 Ml) 100 mls @ 999 mls/hr IV JOAN PRN PRN Reason: Hypotension Nitroglycerin (Nitrostat) 0.4 mg SL .Q5MIN PRN PRN Reason: Chest Pain Review of Systems Constitutional: no weight loss, no weight gain, no fever, no chills Ears, nose, mouth and throat: nasal congestion, other (she states she is recovering from flu, ) Cardiovascular: orthopnea, shortness of breath, no chest pain Respiratory: cough, no hemoptysis Gastrointestinal: abdominal pain, no nausea, no vomiting, no diarrhea Genitourinary Female: no pelvic pain, no flank pain Rectal: no pain, no incontinence Musculoskeletal: no neck stiffness, no neck pain, no shooting arm pain Integumentary: no rash, no pruritis Neurological: no paralysis, no weakness Psychiatric: no anxiety, no memory loss Endocrine: no cold intolerance, no heat intolerance Hematologic/Lymphatic: no easy bruising, no easy bleeding Exam - Vital Signs Vital signs: Vital Signs Temp Pulse Resp BP Pulse Ox 98.4 F 98 H 18 154/76 96 10/16/16 06:09 10/16/16 06:09 10/16/16 06:09 10/16/16 06:09 10/16/16 06:09 - Physical Exam Narrative exam: Middle-aged -[place] female lying in bed in no acute distress HEENT normocephalic atraumatic, pupils equal reactive to light, pink, clear oropharynx Neck supple, no thyromegaly no jugular venous distention CVS S1-S2 regular rate rhythm without murmur, rub or gallop Chest: Ronchi bilaterally, + wheezing Abdomen slightly epigastric/RUQ tenderness, no organomegaly no bruit bowel sounds present Extremities no edema no cyanosis or clubbing Neuro awake, alert oriented x3 no gross deficit Results - Lab Results 10/16/16 06:30 10/16/16 06:30 Most recent lab results Calcium 9.2 mg/dL (8.4-10.2) 10/16/16 06:30 Assessment and Plan 1. Hyperkalemia 2/2 missed HD treatment 2. ESRD on HD 3. Fluid overload 4. Accelerated HTN 5. Anemia of ESRD 6. Abdominal pain Plan: She has severe hyperkalemia. Stat dialysis arrangements made Will give hyperkalemia cocktail till dialysis Resumed oral antihypertensives Epogen on dialysis Discussed need for compliance Abdominal pain work up per GI/primary team Thank you for the consult Discussed with dialysis staff, and Dr James.
[2016-10-16] MEDS ORDERED: COLACE PO PRN (19:42)
--- NOTE | 2016-10-16 20:37 | History and Physical Report ---
History of Present Illness Date of examination: 10/16/16 Date of admission: 10/16/16 07:52 Chief complaint: Shortness of breath, Missed dialysis session History of present illness: Patient is a 66-year-old lady who has a history of end-stage renal disease on hemodialysis, developed common cold sneezing and runny nose. Usually gets had dialysis on Wednesdays and Fridays. 2 days ago being Sunday she was advised to come for dialysis because of cold symptoms. She complied. However today she started having shortness of breath and fatigue and cough was productive of whitish sputum. Denies any fever. Has lower abdominal pain. Aggravated by movement. Relieved by being still. Patient denies any fever. Nauseated but no vomiting. No dysuria or vaginal discharge. Admission was therefore requested. Past History Past Medical History: ESRD, hypertension Past Surgical History: Other (grafting the left) Social history: smoking, alcohol abuse. denies: IV drug use Family history: cancer, hypertension Medications and Allergies Allergies Allergy/AdvReac Type Severity Reaction Status Date / Time No Known Allergies Allergy Verified 12/09/13 08:59 Home Medications Medication Instructions Recorded Confirmed Last Taken Type Lisinopril [Zestril TAB] 20 mg PO QDAY #30 tablet 12/13/13 10/16/16 10/14/16 Rx Allopurinol [Zyloprim] 100 mg PO DAILY 08/03/14 10/16/16 10/14/16 History Cinacalcet [Sensipar] 60 mg PO QDAY 09/13/16 10/16/16 10/14/16 History Docusate Sodium [Colace CAP] 100 mg PO BID PRN 09/13/16 10/16/16 10/14/16 History Furosemide [Lasix TAB] 20 mg PO QDAY 09/13/16 10/16/16 10/14/16 History Sevelamer Carbonate [Renvela] 800 mg PO TIDWM 09/13/16 10/16/16 10/14/16 History AtorvaSTATin [Lipitor] 40 mg PO QHS #30 tablet 10/05/16 10/16/16 10/14/16 Rx Pantoprazole [Protonix] 40 mg PO QDAY #30 tablet 10/05/16 10/16/16 10/14/16 Rx Carvedilol [Coreg] 12.5 mg PO BID 10/16/16 10/16/16 10/14/16 History Active Meds: Active Medications Allopurinol (Zyloprim) 100 mg PO DAILY [facility] Atorvastatin Calcium (Lipitor) 40 mg PO QHS [facility] Carvedilol (Coreg) 12.5 mg PO BID [facility] Cinacalcet (Sensipar) 60 mg PO QDAY [facility] Docusate Sodium (Colace) 100 mg PO BID PRN PRN Reason: Constipation Furosemide (Lasix) 20 mg PO QDAY [facility] Sodium Chloride (Nacl 0.9% 1000 Ml) 100 mls @ 999 mls/hr IV JOAN PRN PRN Reason: Hypotension Lisinopril (Zestril) 20 mg PO QDAY [facility] Nitroglycerin (Nitrostat) 0.4 mg SL .Q5MIN PRN PRN Reason: Chest Pain Pantoprazole Sodium (Protonix) 40 mg PO QDAY [facility] Sevelamer Carbonate (Renvela) 800 mg PO TIDWM [facility] Review of systems Constitutional: Well Nouridhed and Well developed. Head: NC/ AT Eyes: Denies any visual impairments. No discharge from the eyes Nose: Denies any rhinorrhea or epistaxis Throats: Denies any post nasal drainage. Ears: Denies any hearing deficits Cardiovascular system: Denies any chest pain, shortness of breath, orthopnea, paroxysmal nocturnal dyspnea, or palpitation. Respiratory system: Has cough, difficulty breathing, wheezing, pleuritic chest pain, Gastrointestinal system: Denies any abdominal pain, nausea vomiting, hematemesis or melena. Neurological system: Denies any headache, slurred speech, facial droop, lateralizing weakness Genitalia system: Denies any dysuria, urinary frequency or urgency, urethral discharge Skin: No rashes, hyperpigmented spots. Hematological: Denies any cervical tenderness hemorrhages or petechia. Immunological: Denies any multiple septic spots, Lymphatic: Denies any generalized lymphadenopathy. Endocrine: Denies any polyuria, polydipsia, polyphagia. No heat or cold intolerance. Exam - Constitutional Vitals: Temp Pulse Resp BP Pulse Ox 98.1 F 100 H 18 134/65 96 10/16/16 15:45 10/16/16 15:45 10/16/16 15:45 10/16/16 15:45 10/16/16 20:22 General appearance: Present: no acute distress, well-nourished, other (A quietly in bed) - EENT Eyes: Present: PERRL ENT: hearing intact, clear oral mucosa - Neck Neck: Present: supple, normal ROM - Respiratory Respiratory effort: normal Respiratory: bilateral: CTA - Cardiovascular Heart Sounds: Present: S1 & S2. Absent: rub, click - Extremities Extremities: pulses symmetrical, No edema Peripheral Pulses: within normal limits - Abdominal General gastrointestinal: Present: soft, non-tender, non-distended, normal bowel sounds Female genitourinary: Present: normal - Integumentary Integumentary: Present: clear, warm, dry - Musculoskeletal Musculoskeletal: gait normal, strength equal bilaterally - Psychiatric Psychiatric: appropriate mood/affect, intact judgment & insight - Neurologic Neurologic: CNII-XII intact, moves all extremities Results - Labs CBC & Chem 7: 10/16/16 06:30 10/16/16 21:00 Labs: Abnormal lab results 10/16/16 10/16/16 Range/Units 09:14 13:20 Troponin T 0.113 H* 0.128 H* (0.00-0.029) ng/mL Assessment and Plan Assessment 1. Shortness of breath secondary to acute pulmonary edema: Anticipate improvement with hemodialysis 2. Seizure disorder hemodialysis 3. Tobacco use disorder Plan commence patient on oxygen, aspirin, Lovenox, simvastatin PT OT to evaluate and treatment, Tobacco cessation counseling was done. Nephrology arranging for hemodialysis
--- NOTE | 2016-10-16 20:38 | History and Physical Report ---
History of Present Illness Date of admission: 10/16/16 07:52 Medications and Allergies Allergies Allergy/AdvReac Type Severity Reaction Status Date / Time No Known Allergies Allergy Verified 12/09/13 08:59 Home Medications Medication Instructions Recorded Confirmed Last Taken Type Lisinopril [Zestril TAB] 20 mg PO QDAY #30 tablet 12/13/13 10/16/16 10/14/16 Rx Allopurinol [Zyloprim] 100 mg PO DAILY 08/03/14 10/16/16 10/14/16 History Cinacalcet [Sensipar] 60 mg PO QDAY 09/13/16 10/16/16 10/14/16 History Docusate Sodium [Colace CAP] 100 mg PO BID PRN 09/13/16 10/16/16 10/14/16 History Furosemide [Lasix TAB] 20 mg PO QDAY 09/13/16 10/16/16 10/14/16 History Sevelamer Carbonate [Renvela] 800 mg PO TIDWM 09/13/16 10/16/16 10/14/16 History AtorvaSTATin [Lipitor] 40 mg PO QHS #30 tablet 10/05/16 10/16/16 10/14/16 Rx Pantoprazole [Protonix] 40 mg PO QDAY #30 tablet 10/05/16 10/16/16 10/14/16 Rx Carvedilol [Coreg] 12.5 mg PO BID 10/16/16 10/16/16 10/14/16 History Active Meds: Active Medications Allopurinol (Zyloprim) 100 mg PO DAILY [facility] Atorvastatin Calcium (Lipitor) 40 mg PO QHS [facility] Carvedilol (Coreg) 12.5 mg PO BID [facility] Cinacalcet (Sensipar) 60 mg PO QDAY [facility] Docusate Sodium (Colace) 100 mg PO BID PRN PRN Reason: Constipation Furosemide (Lasix) 20 mg PO QDAY [facility] Sodium Chloride (Nacl 0.9% 1000 Ml) 100 mls @ 999 mls/hr IV JOAN PRN PRN Reason: Hypotension Lisinopril (Zestril) 20 mg PO QDAY [facility] Nitroglycerin (Nitrostat) 0.4 mg SL .Q5MIN PRN PRN Reason: Chest Pain Pantoprazole Sodium (Protonix) 40 mg PO QDAY [facility] Sevelamer Carbonate (Renvela) 800 mg PO TIDWM [facility] Exam - Constitutional Vitals: Temp Pulse Resp BP Pulse Ox 98.1 F 100 H 18 134/65 96 10/16/16 15:45 10/16/16 15:45 10/16/16 15:45 10/16/16 15:45 10/16/16 20:22 Results - Labs CBC & Chem 7: 10/16/16 06:30 10/16/16 06:30 Labs: Abnormal lab results 10/16/16 10/16/16 Range/Units 09:14 13:20 Troponin T 0.113 H* 0.128 H* (0.00-0.029) ng/mL
[2016-10-16 21:31] LABS: BUN/Creatinine Ratio 5.09; Calcium 8.8 mg/dL (8.4-10.2); Chloride 96.8 mmol/L (98-107)
[2016-10-16] MEDS: PROTONIX PO SCH (22:08)
[2016-10-16] MEDS: ZESTRIL PO SCH (22:08)
[2016-10-16] MEDS: ZYLOPRIM PO SCH (22:08)
[2016-10-16] MEDS: SENSIPAR PO SCH (22:08)
[2016-10-16] MEDS: MORPHINE IV PRN (22:09)
[2016-10-16] MEDS: COREG PO SCH (22:11)
[2016-10-16] MEDS: LASIX PO SCH (22:11)
[2016-10-17] MEDS: RENVELA PO SCH ×3 (08:16→16:56)
[2016-10-17] MEDS: MORPHINE IV PRN ×3 (08:32→21:24)
--- NOTE | 2016-10-17 09:23 | Progress Note ---
Assessment and Plan 1. Hyperkalemia 2/2 missed HD treatment 2. ESRD on HD 3. Fluid overload 4. Accelerated HTN 5. Anemia of ESRD 6. Abdominal pain Plan: SOB/hyperkalemia resolved after dialysis BP stable. Continue present oral antihypertensives Epogen on dialysis CT A/P reviewed> Near resolution of the suspected liver abscesses Pain control D/c planning per primary team> ok from renal perspective Subjective Date of service: 10/17/16 Interval history: Feels better, no SOB/CP c/o lower back pain-more on the right side Objective - Exam Narrative Exam: Middle-aged -[place] female lying in bed in no acute distress HEENT normocephalic atraumatic, pupils equal reactive to light, pink, clear oropharynx Neck supple, no thyromegaly no jugular venous distention CVS S1-S2 regular rate rhythm without murmur, rub or gallop Chest: Ronchi bilaterally, + wheezing Abdomen slightly epigastric/RUQ tenderness, no organomegaly no bruit bowel sounds present Extremities no edema no cyanosis or clubbing Neuro awake, alert oriented x3 no gross deficit - Vital Signs Vital signs: Vital Signs - 12hr 10/16/16 10/17/16 10/17/16 22:08 00:05 04:00 Temperature 98.6 F 98.5 F Pulse Rate 101 H Pulse Rate [ 84 81 From Monitor] Respiratory 18 18 Rate Blood Pressure 163/75 Blood Pressure 139/65 148/67 [Right Arm] O2 Sat by Pulse 99 100 Oximetry 10/17/16 10/17/16 07:15 07:54 Temperature 98.2 F Pulse Rate Pulse Rate [ 85 From Monitor] Respiratory 16 Rate Blood Pressure Blood Pressure 141/88 [Right Arm] O2 Sat by Pulse 100 96 Oximetry - Lab 10/16/16 06:30 10/16/16 21:00 Most recent lab results Calcium 8.8 mg/dL (8.4-10.2) 10/16/16 21:00
[2016-10-17] MEDS: SENSIPAR PO SCH (10:08)
[2016-10-17] MEDS: LASIX PO SCH (10:08)
[2016-10-17] MEDS: COREG PO SCH ×2 (10:08→21:23)
[2016-10-17] MEDS: ZYLOPRIM PO SCH (10:08)
[2016-10-17] MEDS: PROTONIX PO SCH (10:08)
[2016-10-17] MEDS: ZESTRIL PO SCH (10:09)
--- NOTE | 2016-10-17 18:45 | Progress Note ---
History Interval history: s/p HD; feeling better Hospitalist Physical - Constitutional Vitals: Temp Pulse Resp BP Pulse Ox 98.4 F 85 16 132/60 95 10/17/16 14:28 10/17/16 07:15 10/17/16 14:28 10/17/16 14:28 10/17/16 14:28 General appearance: Present: no acute distress, well-nourished, other (A quietly in bed) Results - Labs CBC & Chem 7: 10/16/16 06:30 10/16/16 21:00 Labs: Laboratory Last Values WBC 8.1 K/mm3 (4.5-11.0) 10/16/16 06:30 RBC 3.28 M/mm3 (3.65-5.03) L 10/16/16 06:30 Hgb 10.1 gm/dl (10.1-14.3) 10/16/16 06:30 Hct 31.1 % (30.3-42.9) 10/16/16 06:30 MCV 95 fl (79-97) 10/16/16 06:30 MCH 31 pg (28-32) 10/16/16 06:30 MCHC 33 % (30-34) 10/16/16 06:30 RDW 19.9 % (13.2-15.2) H 10/16/16 06:30 Plt Count 296 K/mm3 (140-440) 10/16/16 06:30 Lymph % (Auto) 19.5 % (13.4-35.0) 10/16/16 06:30 Yell % (Auto) 10.4 % (0.0-7.3) H 10/16/16 06:30 Eos % (Auto) 0.5 % (0.0-4.3) 10/16/16 06:30 Baso % (Auto) 0.5 % (0.0-1.8) 10/16/16 06:30 Lymph # 1.6 K/mm3 (1.2-5.4) 10/16/16 06:30 Yell # 0.8 K/mm3 (0.0-0.8) 10/16/16 06:30 Eos # 0.0 K/mm3 (0.0-0.4) 10/16/16 06:30 Baso # 0.0 K/mm3 (0.0-0.1) 10/16/16 06:30 Seg Neutrophils % 69.1 % (40.0-70.0) 10/16/16 06:30 Seg Neutrophils # 5.6 K/mm3 (1.8-7.7) 10/16/16 06:30 Sodium 141 mmol/L (137-145) 10/16/16 21:00 Potassium 5.0 mmol/L (3.6-5.0) D 10/16/16 21:00 Chloride 96.8 mmol/L (98-107) L 10/16/16 21:00 Carbon Dioxide 23 mmol/L (22-30) 10/16/16 21:00 Anion Gap 26 mmol/L 10/16/16 21:00 BUN 52 mg/dL (7-17) H 10/16/16 21:00 Creatinine 10.2 mg/dL (0.7-1.2) H 10/16/16 21:00 Estimated GFR 5 ml/min 10/16/16 21:00 BUN/Creatinine Ratio 5.09 % 10/16/16 21:00 Glucose 73 mg/dL (65-100) 10/16/16 21:00 Calcium 8.8 mg/dL (8.4-10.2) 10/16/16 21:00 Total Bilirubin 0.3 mg/dL (0.1-1.2) 10/16/16 06:30 AST 13 units/L (5-40) 10/16/16 06:30 ALT 7 units/L (7-56) 10/16/16 06:30 Alkaline Phosphatase 98 units/L (35-129) 10/16/16 06:30 Total Creatine Kinase 62 units/L (30-135) 10/16/16 06:30 CK-MB (CK-2) 2.8 ng/mL (0.0-4.0) 10/16/16 06:30 CK-MB (CK-2) Rel Index 4.5 (0-4) H 10/16/16 06:30 Troponin T 0.128 ng/mL (0.00-0.029) H* 10/16/16 13:20 NT-Pro-B Natriuret Pep > 50910 pg/mL (0-900) H 10/16/16 06:30 Total Protein 7.3 g/dL (6.3-8.2) 10/16/16 06:30 Albumin 3.1 g/dL (3.9-5) L 10/16/16 06:30 Albumin/Globulin Ratio 0.7 % 10/16/16 06:30 Triglycerides 77 mg/dL (2-149) 10/16/16 06:30 Cholesterol 163 mg/dL (50-199) 10/16/16 06:30 LDL Cholesterol Direct 94 mg/dL (50-130) 10/16/16 06:30 HDL Cholesterol 54 mg/dL (40-59) 10/16/16 06:30 Cholesterol/HDL Ratio 3.01 % 10/16/16 06:30 Amylase 52 units/L (27-131) 10/16/16 06:30 Lipase 19 units/L (13-60) 10/16/16 06:30
--- NOTE | 2016-10-18 15:36 | Progress Note ---
Assessment and Plan 1. Hyperkalemia 2/2 missed HD treatment 2. ESRD on HD 3. Fluid overload 4. Accelerated HTN 5. Anemia of ESRD 6. Abdominal pain Plan: HD on MWF schedule SOB/hyperkalemia resolved after dialysis BP stable. Continue present oral antihypertensives Epogen on dialysis CT A/P reviewed> Near resolution of the suspected liver abscesses Pain control D/c planning per primary team> ok from renal perspective Subjective Date of service: 10/18/16 Interval history: Feels better, no SOB/CP Objective - Exam Narrative Exam: Middle-aged -[place] female lying in bed in no acute distress HEENT normocephalic atraumatic, pupils equal reactive to light, pink, clear oropharynx Neck supple, no thyromegaly no jugular venous distention CVS S1-S2 regular rate rhythm without murmur, rub or gallop Chest: Ronchi bilaterally, + wheezing Abdomen slightly epigastric/RUQ tenderness, no organomegaly no bruit bowel sounds present Extremities no edema no cyanosis or clubbing Neuro awake, alert oriented x3 no gross deficit - Vital Signs Vital signs: Vital Signs - 12hr 10/18/16 10/18/16 10/18/16 12:15 12:30 12:45 Temperature 98.7 F Pulse Rate 72 76 75 Respiratory 18 Rate Blood Pressure 162/89 156/86 162/85 10/18/16 10/18/16 10/18/16 13:00 13:15 13:30 Temperature Pulse Rate 74 87 87 Respiratory Rate Blood Pressure 167/87 158/72 137/58 10/18/16 10/18/16 10/18/16 13:45 14:00 14:15 Temperature Pulse Rate 83 77 85 Respiratory Rate Blood Pressure 133/75 131/70 125/64 10/18/16 10/18/16 10/18/16 14:30 14:45 15:00 Temperature Pulse Rate 80 80 82 Respiratory Rate Blood Pressure 119/62 117/58 129/59 10/18/16 10/18/16 15:15 15:30 Temperature Pulse Rate 78 75 Respiratory Rate Blood Pressure 114/59 110/54 - Lab 10/16/16 06:30 10/16/16 21:00 Most recent lab results Calcium 8.8 mg/dL (8.4-10.2) 10/16/16 21:00
[2016-10-18] MEDS: RENVELA PO SCH (18:13)
[2016-10-18] MEDS: ZESTRIL PO SCH (18:14)
[2016-10-18] MEDS: MORPHINE IV PRN ×2 (18:14→22:00)
[2016-10-18] MEDS: LASIX PO SCH (18:14)
[2016-10-18] MEDS: COREG PO SCH ×2 (18:14→22:01)
--- NOTE | 2016-10-18 19:47 | Progress Note ---
History Interval history: doing well, no complaints, SOB significantly improved Hospitalist Physical - Constitutional Vitals: Temp Pulse Resp BP Pulse Ox 98.6 F 83 16 129/63 100 10/18/16 15:45 10/18/16 18:16 10/18/16 18:44 10/18/16 18:16 10/18/16 15:45 General appearance: Present: no acute distress, well-nourished, other (A quietly in bed) Results - Labs CBC & Chem 7: 10/16/16 06:30 10/16/16 21:00 Labs: Laboratory Last Values WBC 8.1 K/mm3 (4.5-11.0) 10/16/16 06:30 RBC 3.28 M/mm3 (3.65-5.03) L 10/16/16 06:30 Hgb 10.1 gm/dl (10.1-14.3) 10/16/16 06:30 Hct 31.1 % (30.3-42.9) 10/16/16 06:30 MCV 95 fl (79-97) 10/16/16 06:30 MCH 31 pg (28-32) 10/16/16 06:30 MCHC 33 % (30-34) 10/16/16 06:30 RDW 19.9 % (13.2-15.2) H 10/16/16 06:30 Plt Count 296 K/mm3 (140-440) 10/16/16 06:30 Lymph % (Auto) 19.5 % (13.4-35.0) 10/16/16 06:30 [place] % (Auto) 10.4 % (0.0-7.3) H 10/16/16 06:30 Eos % (Auto) 0.5 % (0.0-4.3) 10/16/16 06:30 Baso % (Auto) 0.5 % (0.0-1.8) 10/16/16 06:30 Lymph # 1.6 K/mm3 (1.2-5.4) 10/16/16 06:30 [place] # 0.8 K/mm3 (0.0-0.8) 10/16/16 06:30 Eos # 0.0 K/mm3 (0.0-0.4) 10/16/16 06:30 Baso # 0.0 K/mm3 (0.0-0.1) 10/16/16 06:30 Seg Neutrophils % 69.1 % (40.0-70.0) 10/16/16 06:30 Seg Neutrophils # 5.6 K/mm3 (1.8-7.7) 10/16/16 06:30 Sodium 141 mmol/L (137-145) 10/16/16 21:00 Potassium 5.0 mmol/L (3.6-5.0) D 10/16/16 21:00 Chloride 96.8 mmol/L (98-107) L 10/16/16 21:00 Carbon Dioxide 23 mmol/L (22-30) 10/16/16 21:00 Anion Gap 26 mmol/L 10/16/16 21:00 BUN 52 mg/dL (7-17) H 10/16/16 21:00 Creatinine 10.2 mg/dL (0.7-1.2) H 10/16/16 21:00 Estimated GFR 5 ml/min 10/16/16 21:00 BUN/Creatinine Ratio 5.09 % 10/16/16 21:00 Glucose 73 mg/dL (65-100) 10/16/16 21:00 Calcium 8.8 mg/dL (8.4-10.2) 10/16/16 21:00 Total Bilirubin 0.3 mg/dL (0.1-1.2) 10/16/16 06:30 AST 13 units/L (5-40) 10/16/16 06:30 ALT 7 units/L (7-56) 10/16/16 06:30 Alkaline Phosphatase 98 units/L (35-129) 10/16/16 06:30 Total Creatine Kinase 62 units/L (30-135) 10/16/16 06:30 CK-MB (CK-2) 2.8 ng/mL (0.0-4.0) 10/16/16 06:30 CK-MB (CK-2) Rel Index 4.5 (0-4) H 10/16/16 06:30 Troponin T 0.128 ng/mL (0.00-0.029) H* 10/16/16 13:20 NT-Pro-B Natriuret Pep > 73312 pg/mL (0-900) H 10/16/16 06:30 Total Protein 7.3 g/dL (6.3-8.2) 10/16/16 06:30 Albumin 3.1 g/dL (3.9-5) L 10/16/16 06:30 Albumin/Globulin Ratio 0.7 % 10/16/16 06:30 Triglycerides 77 mg/dL (2-149) 10/16/16 06:30 Cholesterol 163 mg/dL (50-199) 10/16/16 06:30 LDL Cholesterol Direct 94 mg/dL (50-130) 10/16/16 06:30 HDL Cholesterol 54 mg/dL (40-59) 10/16/16 06:30 Cholesterol/HDL Ratio 3.01 % 10/16/16 06:30 Amylase 52 units/L (27-131) 10/16/16 06:30 Lipase 19 units/L (13-60) 10/16/16 06:30
[2016-10-19] MEDS: MORPHINE IV PRN ×2 (04:34→09:29)
[2016-10-19] MEDS: RENVELA PO SCH ×2 (09:27→13:18)
[2016-10-19] MEDS: SENSIPAR PO SCH (09:27)
[2016-10-19] MEDS: LASIX PO SCH (09:28)
[2016-10-19] MEDS: ZYLOPRIM PO SCH (09:28)
[2016-10-19] MEDS: PROTONIX PO SCH (09:28)
[2016-10-19] MEDS: ZESTRIL PO SCH (09:28)
[2016-10-19] MEDS: COREG PO SCH (09:28)
--- NOTE | 2016-10-19 12:49 | Discharge Summary ---
Providers - Providers Date of Admission: 10/16/16 07:52 Date of discharge: 10/19/16 Attending physician: MALIA THOMSON CONSULTS: Nephrology Primary care physician: FISH HILLS Hospitalization Condition: Good Disposition: DISCHARGED TO HOME OR SELFCARE Time spent for discharge: 35 min Exam - Constitutional Vitals: Temp Pulse Resp BP Pulse Ox 98.3 F 81 20 135/62 100 10/19/16 07:05 10/19/16 09:30 10/19/16 09:29 10/19/16 09:30 10/19/16 07:05 Plan Activity: advance as tolerated Diet: low cholesterol, low salt Additional Instructions: Follow-up with your moveman to resume outpatient hemodialysis. Follow-up with cardiology; call [phone] for appointment Follow up with: FISH HILLS MD [Primary Care Provider] - 3-5 Days Prescriptions: Clopidogrel Bisulfate [Plavix] 75 mg PO DAILY #30 tablet
[2016-10-19 13:21] VITALS: BP 143/65
--- NOTE | 2016-10-19 13:55 | Progress Note ---
Assessment and Plan 1. Hyperkalemia 2/2 missed HD treatment 2. ESRD on HD 3. Fluid overload 4. Accelerated HTN 5. Anemia of ESRD 6. Abdominal pain Plan: HD on MWF schedule SOB/hyperkalemia resolved after dialysis BP stable. Continue present oral antihypertensives Epogen on dialysis Ok for d/c from renal perspective Subjective Date of service: 10/19/16 Interval history: Feels better, no SOB/CP Abdominal pain improved Objective - Exam Narrative Exam: Middle-aged -[place] female lying in bed in no acute distress HEENT normocephalic atraumatic, pupils equal reactive to light, pink, clear oropharynx Neck supple, no thyromegaly no jugular venous distention CVS S1-S2 regular rate rhythm without murmur, rub or gallop Chest: Ronchi bilaterally, + wheezing Abdomen slightly epigastric/RUQ tenderness, no organomegaly no bruit bowel sounds present Extremities no edema no cyanosis or clubbing Neuro awake, alert oriented x3 no gross deficit - Vital Signs Vital signs: Vital Signs - 12hr 10/19/16 10/19/16 10/19/16 04:00 07:05 09:29 Temperature 98.4 F 98.3 F Pulse Rate [ Apical] Pulse Rate [ From Monitor] Pulse Rate [ 76 98 H Right Radial] Respiratory 18 16 Rate Respiratory 20 Rate [Right Lower Back] Blood Pressure 125/60 150/71 [Right Arm] O2 Sat by Pulse 100 Oximetry 10/19/16 10/19/16 10/19/16 09:30 09:59 12:59 Temperature Pulse Rate [ 69 Apical] Pulse Rate [ 81 From Monitor] Pulse Rate [ Right Radial] Respiratory 16 16 Rate Respiratory Rate [Right Lower Back] Blood Pressure 135/62 [Right Arm] O2 Sat by Pulse Oximetry 10/19/16 13:20 Temperature 98.2 F Pulse Rate [ Apical] Pulse Rate [ 83 From Monitor] Pulse Rate [ Right Radial] Respiratory 20 Rate Respiratory Rate [Right Lower Back] Blood Pressure 143/65 [Right Arm] O2 Sat by Pulse 95 Oximetry - Lab 10/16/16 06:30 10/16/16 21:00 Most recent lab results Calcium 8.8 mg/dL (8.4-10.2) 10/16/16 21:00
== END 2016-10-19 14:12 | disposition home or self-care (01) | DRG 291 ==
LOC: ED 06:03 → EEVIPCON 06:03 → 4A 07:52 → 3A 12:02
PROVIDERS: ADMIT Family Medicine; ATTEND Internal Medicine
PROC: 5A1D60Z (ICD-10-PCS; principal; 2016-10-16)
DX: I13.2 Hypertensive heart and chronic kidney disease with heart failure and with stage 5 chronic kidney disease, or end stage renal disease (principal); J81.0 Acute pulmonary edema; N18.6 End stage renal disease; E87.5 Hyperkalemia; I50.9 Heart failure, unspecified; K21.9 Gastro-esophageal reflux disease without esophagitis; E11.22 Type 2 diabetes mellitus with diabetic chronic kidney disease; I25.10 Atherosclerotic heart disease of native coronary artery without angina pectoris; M19.90 Unspecified osteoarthritis, unspecified site; G40.909 Epilepsy, unspecified, not intractable, without status epilepticus; F17.210 Nicotine dependence, cigarettes, uncomplicated; M10.9 Gout, unspecified; D63.1 Anemia in chronic kidney disease; Z98.890 Other specified postprocedural states; Z79.899 Other long term (current) drug therapy; Z98.51 Tubal ligation status; Z82.49 Family history of ischemic heart disease and other diseases of the circulatory system; Z86.73 Personal history of transient ischemic attack (TIA), and cerebral infarction without residual deficits; Z99.2 Dependence on renal dialysis; Z80.9 Family history of malignant neoplasm, unspecified; Z71.6 Tobacco abuse counseling; Z90.49 Acquired absence of other specified parts of digestive tract; Z84.89 Family history of other specified conditions; Z84.1 Family history of disorders of kidney and ureter
CPT/HCPCS: 36415; 71010; 74176; 80048; 80053; 80061; 82150; 82550; 82553; 83690; 83880; 84484; 85025; 93005; 93010; 94644; 96374; 96375; A9270-GY; J1815; J2270

== ENCOUNTER 2016-11-10 11:19 | Emergency (ER) | payer MEDICARE ==
--- NOTE | 2016-11-10 12:30 | Emergency Department Report ---
Chief Complaint: Back Pain/Injury Stated Complaint: GOUT/BACK PAIN/SHOULDER PAIN/DIALYSIS Time Seen by Provider: 11/10/16 12:25 - HPI History of Present Illness: 66-year-old -[place] female with a past medical history of end-stage renal disease currently on dialysis comes in today for back and shoulder pain 3 days. She reports that the back pain radiates to her chest and left shoulder. Patient report that she wanted to dialysis today and they sent her to the ER instead of doing dialysis. She was on pain medication but ran out. I was prescribed by her dialysis provider. Does admit to nausea no vomiting. He was admitted to this hospital per patient 2-3 weeks ago for pneumonia. - Exam Vital Signs: Vital Signs 11/10/16 12:09 Temperature 98.5 F Pulse Rate 91 H Respiratory 20 Rate Blood Pressure 172/76 O2 Sat by Pulse 99 Oximetry Physical Exam: Patient's alert and oriented. Appears to be in discomfort. Cardio: Mildly tachycardic murmur is appreciated. Respiratory clear to auscultation Abdomen nondistended Left shoulder non tender MSE screening note: Focused history and physical exam performed. Due to findings the following was ordered: Patient's been evaluated by this provider and faster we will initiate a chest pain protocol based on patient's history and physical examination ED Disposition for MSE Condition: Stable
[2016-11-10 12:59] LABS: Eosinophils % (Auto) 0.8 % (0.0-4.3); Hematocrit 31.5 % (30.3-42.9); Hemoglobin 10.1 gm/dl (10.1-14.3); Mean Corpuscular HGB Conc 32 % (30-34); Mean Corpuscular Hemoglobin 31 pg (28-32); Mean Corpuscular Volume 96 fl (79-97); Platelet Count 295 K/mm3 (140-440); Red Cell Distribution Width 17.4 % (13.2-15.2); White Blood Count 5.6 K/mm3 (4.5-11.0)
[2016-11-10 13:20] LABS: BUN/Creatinine Ratio 6.8; Calcium 9.2 mg/dL (8.4-10.2); Chloride 95.7 mmol/L (98-107); Potassium 3.7 mmol/L (3.6-5.0)
[2016-11-10] MEDS ORDERED: NORCO 5/325 PO ONE (21:46)
[2016-11-10 22:18] VITALS: BP 134/48
[2016-11-10] MEDS ORDERED: DILAUDID IM ONE (23:06)
--- NOTE | 2016-11-10 23:10 | Emergency Department Report ---
ED General Adult HPI - General Chief complaint: Back Pain/Injury Stated complaint: GOUT/BACK PAIN/SHOULDER PAIN/DIALYSIS Time Seen by Provider: 11/10/16 12:25 Source: patient Mode of arrival: Ambulatory Limitations: No Limitations - History of Present Illness Initial comments: 66-year-old female presents to the emergency department complaining of left shoulder, right hip, and abdominal pain. Patient states her right hip has been hurting her for a long time. This morning, she states she began having left shoulder and lower abdominal pain. Pain has been constant and does not radiate. Patient states that she went to dialysis this morning, was sent to emergency department prior to treatment due to the pain. She denies chest pain , shortness of breath, nausea, vomiting, or diarrhea. Patient states she does not have any pain medication at home. There are no other complaints. -: Gradual, This morning Severity scale (0 -10): 8 Quality: aching Consistency: constant Improves with: none Worsens with: none Associated Symptoms: denies other symptoms - Related Data Home Medications Medication Instructions Recorded Confirmed Last Taken Allopurinol [Zyloprim] 100 mg PO DAILY 08/03/14 10/16/16 10/14/16 Cinacalcet [Sensipar] 60 mg PO QDAY 09/13/16 10/16/16 10/14/16 Docusate Sodium [Colace CAP] 100 mg PO BID PRN 09/13/16 10/16/16 10/14/16 Furosemide [Lasix TAB] 20 mg PO QDAY 09/13/16 10/16/16 10/14/16 Sevelamer Carbonate [Renvela] 800 mg PO TIDWM 09/13/16 10/16/16 10/14/16 Carvedilol [Coreg] 12.5 mg PO BID 10/16/16 10/16/16 10/14/16 Previous Rx's Medication Instructions Recorded Last Taken Type Lisinopril [Zestril TAB] 20 mg PO QDAY #30 tablet 12/13/13 10/14/16 Rx AtorvaSTATin [Lipitor] 40 mg PO QHS #30 tablet 10/05/16 10/14/16 Rx Pantoprazole [Protonix TAB] 40 mg PO QDAY #30 tablet 10/05/16 10/14/16 Rx Clopidogrel Bisulfate [Plavix] 75 mg PO DAILY #30 tablet 10/19/16 Unknown Rx HYDROcodone/APAP 7.5-325 [Hickman 1 each PO Q6HR PRN #20 tablet 11/10/16 Unknown Rx 7.5/325] Allergies Allergy/AdvReac Type Severity Reaction Status Date / Time No Known Allergies Allergy Verified 12/09/13 08:59 ED Review of Systems ROS: Stated complaint: GOUT/BACK PAIN/SHOULDER PAIN/DIALYSIS Other details as noted in HPI Comment: All other systems reviewed and negative Gastrointestinal: abdominal pain Musculoskeletal: arthralgia ED Past Medical Hx - Past Medical History Previous Medical History?: Yes Hx Hypertension: Yes Hx CVA: Yes (x 2) Hx Congestive Heart Failure: Yes Hx Diabetes: Yes Hx GERD: Yes Hx Liver Disease: Yes (LESION) Hx Renal Disease: Yes (ESRD/dialysis M, W, F) Hx Arthritis: Yes Additional medical history: enlarged heart, gout - Surgical History Past Surgical History?: Yes Hx Appendectomy: Yes Additional Surgical History: tubal ligation, vas cath. LUE fistula - Family History Family history: no significant - Social History Smoking Status: Current Every Day Smoker Substance Use Type: None - Medications Home Medications: Home Medications Medication Instructions Recorded Confirmed Last Taken Type Lisinopril [Zestril TAB] 20 mg PO QDAY #30 tablet 12/13/13 10/16/16 10/14/16 Rx Allopurinol [Zyloprim] 100 mg PO DAILY 08/03/14 10/16/16 10/14/16 History Cinacalcet [Sensipar] 60 mg PO QDAY 09/13/16 10/16/16 10/14/16 History Docusate Sodium [Colace CAP] 100 mg PO BID PRN 09/13/16 10/16/16 10/14/16 History Furosemide [Lasix TAB] 20 mg PO QDAY 09/13/16 10/16/16 10/14/16 History Sevelamer Carbonate [Renvela] 800 mg PO TIDWM 09/13/16 10/16/16 10/14/16 History AtorvaSTATin [Lipitor] 40 mg PO QHS #30 tablet 10/05/16 10/16/16 10/14/16 Rx Pantoprazole [Protonix TAB] 40 mg PO QDAY #30 tablet 10/05/16 10/16/16 10/14/16 Rx Carvedilol [Coreg] 12.5 mg PO BID 10/16/16 10/16/16 10/14/16 History Clopidogrel Bisulfate [Plavix] 75 mg PO DAILY #30 tablet 10/19/16 Unknown Rx HYDROcodone/APAP 7.5-325 [Hickman 1 each PO Q6HR PRN #20 tablet 11/10/16 Unknown Rx 7.5/325] ED Physical Exam - General Limitations: No Limitations General appearance: alert, in no apparent distress - Head Head exam: Present: atraumatic, normocephalic - Eye Eye exam: Present: normal appearance, PERRL, EOMI - ENT ENT exam: Present: normal exam, normal orophraynx, mucous membranes moist - Neck Neck exam: Present: normal inspection, full ROM. Absent: tenderness - Respiratory Respiratory exam: Present: normal lung sounds bilaterally. Absent: respiratory distress - Cardiovascular Cardiovascular Exam: Present: regular rate, normal rhythm, normal heart sounds - GI/Abdominal GI/Abdominal exam: Present: soft, normal bowel sounds. Absent: distended, tenderness - Extremities Exam Extremities exam: Present: normal inspection, full ROM. Absent: tenderness - Back Exam Back exam: Present: normal inspection, full ROM. Absent: tenderness - Neurological Exam Neurological exam: Present: alert, oriented X3. Absent: motor sensory deficit - Skin Skin exam: Present: warm, dry, intact ED Course Vital Signs 11/10/16 11/10/16 11/10/16 12:09 18:05 19:06 Temperature 98.5 F 98.7 F Pulse Rate 91 H 92 H 94 H Respiratory 20 20 15 Rate Blood Pressure 172/76 183/73 Blood Pressure [Left] O2 Sat by Pulse 99 100 Oximetry 11/10/16 11/10/16 11/10/16 19:08 19:10 19:20 Temperature 98.1 F Pulse Rate 89 89 91 H Respiratory 20 16 17 Rate Blood Pressure 181/68 180/74 Blood Pressure 187/78 [Left] O2 Sat by Pulse 99 100 97 Oximetry 11/10/16 11/10/16 11/10/16 19:30 19:40 19:50 Temperature Pulse Rate 101 H 91 H 92 H Respiratory 21 14 18 Rate Blood Pressure 187/78 187/78 180/76 Blood Pressure [Left] O2 Sat by Pulse 99 100 100 Oximetry 11/10/16 11/10/16 11/10/16 20:00 20:11 20:21 Temperature Pulse Rate 89 92 H 105 H Respiratory 19 20 22 Rate Blood Pressure 189/69 180/76 129/108 Blood Pressure [Left] O2 Sat by Pulse 99 99 97 Oximetry 11/10/16 11/10/16 11/10/16 20:30 20:41 20:51 Temperature Pulse Rate 89 96 H 96 H Respiratory 19 18 13 Rate Blood Pressure 181/104 129/108 176/78 Blood Pressure [Left] O2 Sat by Pulse 98 97 98 Oximetry 11/10/16 11/10/16 11/10/16 21:01 21:11 21:21 Temperature Pulse Rate 95 H 94 H 99 H Respiratory 21 11 L 24 Rate Blood Pressure 183/73 183/73 184/128 Blood Pressure [Left] O2 Sat by Pulse 98 100 99 Oximetry 11/10/16 11/10/16 11/10/16 21:31 21:41 21:51 Temperature Pulse Rate 95 H 99 H Respiratory 30 H 18 15 Rate Blood Pressure 167/59 167/59 182/65 Blood Pressure [Left] O2 Sat by Pulse 96 97 97 Oximetry 11/10/16 11/10/16 22:01 22:18 Temperature Pulse Rate 94 H Respiratory 12 19 Rate Blood Pressure 165/48 Blood Pressure 134/48 [Left] O2 Sat by Pulse 96 100 Oximetry ED Medical Decision Making - Lab Data Result diagrams: 11/10/16 12:46 11/10/16 12:46 - EKG Data -: EKG Interpreted by Me EKG shows normal: sinus rhythm, axis, ST-T waves Rate: normal - EKG Data When compared to previous EKG there are: no significant change Interpretation: unchanged when compared t (10/16/2016), LVH, other (prolonged QT interval) - Medical Decision Making Laboratory results reviewed and discussed with the patient. Patient reports pain is improved medication. I have spoken with Dr. Rashid, nephrology. There is no indication for urgent hemodialysis at this time. Patient will be discharged home to call the dialysis center at 6 AM to arrange for treatment tomorrow. This was discussed with the patient and she agrees. - Differential Diagnosis chronic pain, electrolyte abnormality, arthritis Critical care attestation.: If time is entered above; I have spent that time in minutes in the direct care of this critically ill patient, excluding procedure time. ED Disposition Clinical Impression: ESRD (end stage renal disease) on dialysis Left shoulder pain Qualifiers: Chronicity: acute Qualified Code(s): M25.512 - Pain in left shoulder Disposition: DISCHARGED TO HOME OR SELFCARE Is pt being admited?: No Condition: Stable Instructions: Chronic Kidney Disease (ED) Prescriptions: HYDROcodone/APAP 7.5-325 [Hickman 7.5/325] 1 each PO Q6HR PRN #20 tablet PRN Reason: Pain Referrals: FISH HILLS MD [Primary Care Provider] - 3-5 Days Time of Disposition: 23:40
== END 2016-11-10 23:53 | disposition home or self-care (01) ==
LOC: ED 11:19
DX: I13.2 Hypertensive heart and chronic kidney disease with heart failure and with stage 5 chronic kidney disease, or end stage renal disease (principal); E11.22 Type 2 diabetes mellitus with diabetic chronic kidney disease; N18.6 End stage renal disease; M25.512 Pain in left shoulder; K21.9 Gastro-esophageal reflux disease without esophagitis; M19.90 Unspecified osteoarthritis, unspecified site; F17.200 Nicotine dependence, unspecified, uncomplicated; Z99.2 Dependence on renal dialysis
CPT/HCPCS: 36415; 80048; 80061; 84484; 85025; 93005; 96372; 99284; J1170

== ENCOUNTER 2016-12-16 20:26 | Emergency (ER) | payer MEDICARE ==
[2016-12-16] MEDS ORDERED: TYLENOL PO ONE (23:49)
[2016-12-16 23:51] LABS: Basophils % (Auto) 0.5 % (0.0-1.8); Eosinophils % (Auto) 1.6 % (0.0-4.3); Hematocrit 37.8 % (30.3-42.9); Hemoglobin 11.9 gm/dl (10.1-14.3); Mean Corpuscular HGB Conc 31 % (30-34); Mean Corpuscular Hemoglobin 30 pg (28-32); Mean Corpuscular Volume 96 fl (79-97); Platelet Count 270 K/mm3 (140-440); Red Blood Count 3.94 M/mm3 (3.65-5.03); Red Cell Distribution Width 19.6 % (13.2-15.2); White Blood Count 6.8 K/mm3 (4.5-11.0)
[2016-12-17 00:23] LABS: Albumin 3.4 g/dL (3.9-5); BUN/Creatinine Ratio 5.24; Bilirubin,Total 0.2 mg/dL (0.1-1.2); Calcium 9.7 mg/dL (8.4-10.2); Chloride 100.4 mmol/L (98-107); Potassium 3.9 mmol/L (3.6-5.0); Total Protein 6.7 g/dL (6.3-8.2)
[2016-12-17] MEDS ORDERED: TYLENOL ONE (02:04)
[2016-12-17] MEDS ORDERED: ULTRAM PO ONE (10:45)
[2016-12-17 10:46] VITALS: BP 193/85
--- NOTE | 2016-12-17 10:50 | Emergency Department Report ---
ED Abdominal Pain HPI - General Chief Complaint: Abdominal Pain Stated Complaint: LOWER BACK PAIN Time Seen by Provider: 12/17/16 10:33 Source: patient, EMS Mode of arrival: Ambulatory Limitations: No Limitations - History of Present Illness Initial Comments: Patient reports sitting on the scene TV last night when she noted she was having difficulty standing up she stated it was due to her acute on chronic lower back pain on the right. She states that she frequently gets this pain usually takes tramadol for when he gets worse. She denies any new injury. She states she is anuric. She denies any specific trauma. She noted that she was becoming anxious at this time as well and started having pressure in her chest. She states that she called EMS due to the pressure in her chest. She states by the time they arrived on scene that pressure essentially resolved. She reports during moist her stay in my ED that her pain is resolved as well. Referring to the pain in her chest. She states she still has a pain in her back but is not as severe. She does endorse some anxiety due to being alone at home as well. She is a hemodialysis patient Sunday. She has been compliant with this. MD Complaint: abdominal pain -: Gradual Location: R flank Radiation: back Severity scale (0 -10): 10 Quality: dull Consistency: constant Improves With: rest Associated Symptoms: denies: nausea, vomiting, fever, chills, dysuria, hematemesis - Related Data Home Medications Medication Instructions Recorded Confirmed Last Taken Allopurinol [Zyloprim] 100 mg PO DAILY 08/03/14 11/27/16 10/14/16 Cinacalcet [Sensipar] 60 mg PO QDAY 09/13/16 11/27/16 10/14/16 Docusate Sodium [Colace CAP] 100 mg PO BID PRN 09/13/16 11/27/16 10/14/16 Furosemide [Lasix TAB] 20 mg PO QDAY 09/13/16 11/27/16 10/14/16 Sevelamer Carbonate [Renvela] 800 mg PO TIDWM 09/13/16 11/27/16 10/14/16 Carvedilol [Coreg] 12.5 mg PO BID 10/16/16 11/27/16 10/14/16 Amoxicillin 500 mg PO TID 11/27/16 11/27/16 Unknown Dialyvite 800 Plus D Wafer 800 mg PO QDAY 11/27/16 11/27/16 Unknown Previous Rx's Medication Instructions Recorded Last Taken Type Lisinopril [Zestril TAB] 20 mg PO QDAY #30 tablet 12/13/13 10/14/16 Rx AtorvaSTATin [Lipitor] 40 mg PO QHS #30 tablet 10/05/16 10/14/16 Rx Pantoprazole [Protonix TAB] 40 mg PO QDAY #30 tablet 10/05/16 10/14/16 Rx Aspirin EC [Aspirin Enteric Coated 81 mg PO QDAY #30 tablet. 11/29/16 Unknown Rx TAB] ISOSORBIDE MONOnitrate [Imdur ER] 30 mg PO QDAY #30 tablet 11/29/16 Unknown Rx Prasugrel [Effient] 10 mg PO QDAY #30 tablet 11/29/16 Unknown Rx ISOSORBIDE MONOnitrate [Imdur ER] 60 mg PO QDAY #30 tablet 11/30/16 Unknown Rx traMADol [Ultram 50 MG tab] 50 mg PO Q6HR PRN #20 tablet 11/30/16 Unknown Rx traMADol [Ultram 50 MG tab] 50 mg PO Q6HR PRN #40 tablet 12/17/16 Unknown Rx Allergies Allergy/AdvReac Type Severity Reaction Status Date / Time No Known Allergies Allergy Verified 12/09/13 08:59 ED Review of Systems ROS: Stated complaint: LOWER BACK PAIN Other details as noted in HPI Constitutional: denies: chills, fever Eyes: denies: eye pain, eye discharge, vision change ENT: denies: ear pain, throat pain Respiratory: denies: cough, shortness of breath, wheezing Cardiovascular: chest pain. denies: palpitations Endocrine: no symptoms reported Gastrointestinal: abdominal pain. denies: nausea, diarrhea Genitourinary: denies: urgency, dysuria, discharge Musculoskeletal: back pain. denies: joint swelling, arthralgia Skin: denies: rash, lesions Neurological: denies: headache, weakness, paresthesias Psychiatric: denies: anxiety, depression Hematological/Lymphatic: denies: easy bleeding, easy bruising ED Past Medical Hx - Past Medical History Hx Hypertension: Yes Hx CVA: Yes (x 2) Hx Congestive Heart Failure: Yes Hx Diabetes: Yes Hx GERD: Yes Hx Liver Disease: Yes (LESION) Hx Renal Disease: Yes (ESRD/dialysis M, W, F) Hx Arthritis: Yes Additional medical history: enlarged heart, gout - Surgical History Hx Appendectomy: Yes Additional Surgical History: tubal ligation, vas cath. LUE fistula - Social History Smoking Status: Current Some Day Smoker - Medications Home Medications: Home Medications Medication Instructions Recorded Confirmed Last Taken Type Lisinopril [Zestril TAB] 20 mg PO QDAY #30 tablet 12/13/13 11/27/16 10/14/16 Rx Allopurinol [Zyloprim] 100 mg PO DAILY 08/03/14 11/27/16 10/14/16 History Cinacalcet [Sensipar] 60 mg PO QDAY 09/13/16 11/27/16 10/14/16 History Docusate Sodium [Colace CAP] 100 mg PO BID PRN 09/13/16 11/27/16 10/14/16 History Furosemide [Lasix TAB] 20 mg PO QDAY 09/13/16 11/27/16 10/14/16 History Sevelamer Carbonate [Renvela] 800 mg PO TIDWM 09/13/16 11/27/16 10/14/16 History AtorvaSTATin [Lipitor] 40 mg PO QHS #30 tablet 10/05/16 11/27/16 10/14/16 Rx Pantoprazole [Protonix TAB] 40 mg PO QDAY #30 tablet 10/05/16 11/27/16 10/14/16 Rx Carvedilol [Coreg] 12.5 mg PO BID 10/16/16 11/27/16 10/14/16 History Amoxicillin 500 mg PO TID 11/27/16 11/27/16 Unknown History Dialyvite 800 Plus D Wafer 800 mg PO QDAY 11/27/16 11/27/16 Unknown History Aspirin EC [Aspirin Enteric Coated 81 mg PO QDAY #30 tablet. 11/29/16 Unknown Rx TAB] ISOSORBIDE MONOnitrate [Imdur ER] 30 mg PO QDAY #30 tablet 11/29/16 Unknown Rx Prasugrel [Effient] 10 mg PO QDAY #30 tablet 11/29/16 Unknown Rx ISOSORBIDE MONOnitrate [Imdur ER] 60 mg PO QDAY #30 tablet 11/30/16 Unknown Rx traMADol [Ultram 50 MG tab] 50 mg PO Q6HR PRN #20 tablet 11/30/16 Unknown Rx traMADol [Ultram 50 MG tab] 50 mg PO Q6HR PRN #40 tablet 12/17/16 Unknown Rx ED Physical Exam - General Limitations: No Limitations General appearance: alert, in no apparent distress - Head Head exam: Present: atraumatic, normocephalic - Eye Eye exam: Present: normal appearance. Absent: scleral icterus - ENT ENT exam: Present: normal exam, mucous membranes moist - Neck Neck exam: Present: normal inspection - Respiratory Respiratory exam: Present: normal lung sounds bilaterally. Absent: respiratory distress - Cardiovascular Cardiovascular Exam: Present: regular rate, normal rhythm. Absent: systolic murmur, diastolic murmur, rubs, gallop - GI/Abdominal GI/Abdominal exam: Present: soft, tenderness (epigastric region, moderate. No rebound.), normal bowel sounds. Absent: organomegaly, mass - Extremities Exam Extremities exam: Present: normal inspection, other (L arm fistula with good thrill. Good distal pedal pulse) - Back Exam Back exam: Present: tenderness (mild and right lower aspect on the paralumbar region. It is very muscular in nature. No midline tenderness is appreciated.) - Neurological Exam Neurological exam: Present: alert, oriented X3, normal gait - Psychiatric Psychiatric exam: Present: normal affect, normal mood - Skin Skin exam: Present: warm, dry, intact, normal color. Absent: rash ED Course Vital Signs 12/16/16 12/17/16 12/17/16 21:10 03:09 10:03 Temperature 98.5 F 98.2 F Pulse Rate 96 H 96 H 89 Respiratory 18 18 18 Rate Blood Pressure 198/87 198/114 O2 Sat by Pulse 97 98 Oximetry 12/17/16 12/17/16 12/17/16 10:05 10:07 10:15 Temperature Pulse Rate 86 86 90 Respiratory 18 11 L 14 Rate Blood Pressure 190/83 190/83 188/87 O2 Sat by Pulse 99 100 99 Oximetry 12/17/16 12/17/16 10:30 10:49 Temperature Pulse Rate 89 Respiratory 26 H 26 H Rate Blood Pressure 193/85 O2 Sat by Pulse 96 Oximetry - Reevaluation(s) Reevaluation #1: 12/17/16 10:55 Patient noted to have some mild difficulty going from sitting to standing position or lying to sitting position. She appears to be somewhat uncomfortable with this maneuver. She does not endorse any chest pain at this time. ECG demonstrates no specific acute at this time as well. Labs are noted. They are unremarkable in nature in general but for the labs related to her kidney function. She is scheduled for hemodialysis in the morning. I do not suspect cardiac etiology to her chest pain. She has not had it for greater than 10 hours now. It with a normal CBC with nondiagnostic and unchanged ECG. In regards to her back/abdominal pain this appears to be very much chronic with acute exacerbation. She does demonstrate some epigastric tenderness but this is chronic as well. She does take pantoprazole chronically for this. She did indicate that she does take her tramadol when she has it available to her for her back pain. She endorses using approximately 1-2 tablets per day on average. This is an appopriate medication for her this time as well. I did encourage Tylenol as needed as well. She is agreeable with this plan and she agrees to return if there is acute worsening. Safe for home. Reevaluation #2: 12/17/16 11:00 ECG at 1053 demonstrating sinus rhythm at 88 bpm with a normal VT and QRS. Normal axis is noted as well it is noted to have LVH. QT is prolonged at 510 ms. This does not demonstrate any acute STEMI. It is unchanged compared to prior ECG. ED Medical Decision Making - Lab Data Result diagrams: 12/16/16 23:06 12/16/16 23:06 Critical care attestation.: If time is entered above; I have spent that time in minutes in the direct care of this critically ill patient, excluding procedure time. ED Disposition Clinical Impression: Chest pain of uncertain etiology, End stage renal disease on dialysis Back pain Qualifiers: Back pain location: low back pain Chronicity: acute Back pain laterality: right Sciatica presence: without sciatica Qualified Code(s): M54.5 - Low back pain GERD (gastroesophageal reflux disease) Qualifiers: Esophagitis presence: esophagitis presence not specified Qualified Code(s): K21.9 - Gastro-esophageal reflux disease without esophagitis Disposition: DISCHARGED TO HOME OR SELFCARE Is pt being admited?: No Does the pt Need Aspirin: No Condition: Stable Instructions: Low Back Strain (ED) Prescriptions: traMADol [Ultram 50 MG tab] 50 mg PO Q6HR PRN #40 tablet PRN Reason: Pain Referrals: DAVID GREY [Primary Care Provider] - 3-5 Days Time of Disposition: 10:50
== END 2016-12-17 11:24 | disposition home or self-care (01) ==
LOC: ED 20:26
DX: K21.9 Gastro-esophageal reflux disease without esophagitis (principal); M54.5 Low back pain; R07.9 Chest pain, unspecified; I12.0 Hypertensive chronic kidney disease with stage 5 chronic kidney disease or end stage renal disease; N18.6 End stage renal disease; E11.22 Type 2 diabetes mellitus with diabetic chronic kidney disease; I50.9 Heart failure, unspecified; F17.200 Nicotine dependence, unspecified, uncomplicated
CPT/HCPCS: 36415; 80053; 83690; 85025; 93005; 93010; 99283

== ENCOUNTER 2016-12-25 10:46 | Inpatient (IN) | payer MEDICARE ==
[2016-12-25 12:02] LABS: Basophils % (Auto) 0.8 % (0.0-1.8); Eosinophils % (Auto) 1.8 % (0.0-4.3); Hemoglobin 11.9 gm/dl (10.1-14.3); Mean Corpuscular HGB Conc 31 % (30-34); Mean Corpuscular Hemoglobin 30 pg (28-32); Mean Corpuscular Volume 94 fl (79-97); Platelet Count 240 K/mm3 (140-440); Red Blood Count 4.05 M/mm3 (3.65-5.03); Red Cell Distribution Width 18.5 % (13.2-15.2); White Blood Count 5.5 K/mm3 (4.5-11.0)
[2016-12-25 12:12] LABS: Creatine Kinase MB 3.1 ng/mL (0.0-4.0)
[2016-12-25 12:14] LABS: Albumin 3.4 g/dL (3.9-5); BUN/Creatinine Ratio 5.61; Bilirubin,Total 0.3 mg/dL (0.1-1.2); Potassium 5.7 mmol/L (3.6-5.0); Total Protein 6.8 g/dL (6.3-8.2)
--- NOTE | 2016-12-25 12:16 | XRay Report ---
AP CHEST: HISTORY: chest pain Compared to 12/20/16. Mild cardiomegaly is stable. Pulmonary venous congestion has nearly resolved. No evidence for infiltrate, large pleural effusion or pneumothorax. Normal bony thorax IMPRESSION: Mild cardiomegaly. Near resolution of pulmonary venous congestion since exam 5 days ago.
--- NOTE | 2016-12-25 12:45 | Emergency Department Report ---
ED Chest Pain HPI - General Chief Complaint: Chest Pain Stated Complaint: CHEST PAIN Time Seen by Provider: 12/25/16 12:34 Source: family, EMS (ems notes not available at time of chart dictation), RN notes reviewed Mode of arrival: Stretcher Limitations: No Limitations - History of Present Illness Initial Comments: This is a 66-year-old female. I have evaluated her in the past. She has a past medical history of end-stage renal disease, on dialysis Sunday, Sunday, Sunday. She was last dialyzed on Sunday. Also has a history of hypertension, cardiac disease. The patient presents to the ER complaining of right-sided chest pain. The chest pain is sharp. It does not radiate to the back. There is positive shortness of breath. There is no leg pain. There is no leg swelling. Positive recent admission to this hospital. Chest pain does not have any exacerbating or relieving factors. There is no cough. Positive chronic shortness of breath which is not new, worsening or different. MD Complaint: chest pain -: Gradual Pain Location: right chest Quality: heaviness Consistency: constant Improves With: nothing Worsens With: nothing re: dyspnea Treatments Prior to Arrival: aspirin (as per verbal report from nurse, the patient received 325 mg of aspirin prior to my arrival.) Aspirin use within the Past 7 Days: (1) Yes - Related Data On Oral Contraceptives: No Home Medications Medication Instructions Recorded Confirmed Last Taken Allopurinol [Zyloprim] 100 mg PO DAILY 08/03/14 12/25/16 1 Day Ago Cinacalcet [Sensipar] 60 mg PO QDAY 09/13/16 12/25/16 1 Day Ago Docusate Sodium [Colace CAP] 100 mg PO BID PRN 09/13/16 12/25/16 1 Day Ago Sevelamer Carbonate [Renvela] 800 mg PO TIDWM 09/13/16 12/25/16 1 Day Ago Carvedilol [Coreg] 12.5 mg PO BID 10/16/16 12/25/16 1 Day Ago Amoxicillin/K Clav Tab [Augmentin 875 mg PO TID #0 11/27/16 12/25/16 2 Days Ago 875MG TAB] Dialyvite 800 Plus D Wafer 800 mg PO QDAY 11/27/16 12/25/16 1 Day Ago Previous Rx's Medication Instructions Recorded Last Taken Type Lisinopril [Zestril TAB] 20 mg PO QDAY #30 tablet 12/13/13 1 Day Ago Rx AtorvaSTATin [Lipitor] 40 mg PO QHS #30 tablet 10/05/16 2 Days Ago Rx Pantoprazole [Protonix TAB] 40 mg PO QDAY #30 tablet 10/05/16 1 Day Ago Rx Aspirin EC [Aspirin Enteric Coated 81 mg PO QDAY #30 tablet. 11/29/16 1 Day Ago Rx TAB] traMADol [Ultram 50 MG tab] 50 mg PO Q6HR PRN #20 tablet 11/30/16 1 Day Ago Rx Allergies Allergy/AdvReac Type Severity Reaction Status Date / Time No Known Allergies Allergy Verified 12/09/13 08:59 MONE score - Mone Score Age > 65: (1) Yes Aspirin use within the Past 7 Days: (1) Yes 3 or more CAD Risk Factors: (1) Yes 2 or more Angina events in past 24 hrs: (1) Yes Known CAD with more than 50% Stenosis: (0) No Elevated Cardiac Markers: (1) Yes ST Deviation Greater than 0.5mm: (0) No MONE Score: 5 ED Review of Systems ROS: Stated complaint: CHEST PAIN Other details as noted in HPI Constitutional: malaise Eyes: denies: vision change ENT: denies: epistaxis Respiratory: shortness of breath Cardiovascular: chest pain Gastrointestinal: abdominal pain Genitourinary: as per HPI Musculoskeletal: denies: back pain Skin: denies: lesions Neurological: denies: weakness Psychiatric: anxiety ED Past Medical Hx - Past Medical History Hx Hypertension: Yes Hx CVA: Yes (x 2) Hx Congestive Heart Failure: Yes Hx Diabetes: Yes Hx GERD: Yes Hx Liver Disease: Yes (LESION) Hx Renal Disease: Yes (ESRD/dialysis M, W, F) Hx Arthritis: Yes Additional medical history: enlarged heart, gout - Surgical History Hx Coronary Stent: Yes (unknown of what procedure was done) Hx Appendectomy: Yes Additional Surgical History: tubal ligation, vas cath. LUE fistula - Social History Smoking Status: Current Every Day Smoker Substance Use Type: None - Medications Home Medications: Home Medications Medication Instructions Recorded Confirmed Last Taken Type Lisinopril [Zestril TAB] 20 mg PO QDAY #30 tablet 12/13/13 12/25/16 1 Day Ago Rx Allopurinol [Zyloprim] 100 mg PO DAILY 08/03/14 12/25/16 1 Day Ago History Cinacalcet [Sensipar] 60 mg PO QDAY 09/13/16 12/25/16 1 Day Ago History Docusate Sodium [Colace CAP] 100 mg PO BID PRN 09/13/16 12/25/16 1 Day Ago History Sevelamer Carbonate [Renvela] 800 mg PO TIDWM 09/13/16 12/25/16 1 Day Ago History AtorvaSTATin [Lipitor] 40 mg PO QHS #30 tablet 10/05/16 12/25/16 2 Days Ago Rx Pantoprazole [Protonix TAB] 40 mg PO QDAY #30 tablet 10/05/16 12/25/16 1 Day Ago Rx Carvedilol [Coreg] 12.5 mg PO BID 10/16/16 12/25/16 1 Day Ago History Amoxicillin/K Clav Tab [Augmentin 875 mg PO TID #0 11/27/16 12/25/16 2 Days Ago History 875MG TAB] Dialyvite 800 Plus D Wafer 800 mg PO QDAY 11/27/16 12/25/16 1 Day Ago History Aspirin EC [Aspirin Enteric Coated 81 mg PO QDAY #30 tablet. 11/29/16 1 Day Ago Rx TAB] traMADol [Ultram 50 MG tab] 50 mg PO Q6HR PRN #20 tablet 11/30/16 12/25/16 1 Day Ago Rx ED Physical Exam - General Limitations: No Limitations General appearance: alert, in no apparent distress - Head Head exam: Present: atraumatic, normocephalic - Eye Eye exam: Present: normal appearance, EOMI. Absent: nystagmus - ENT ENT exam: Present: normal exam, normal orophraynx, mucous membranes moist, normal external ear exam - Neck Neck exam: Present: normal inspection, full ROM. Absent: tenderness, meningismus - Respiratory Respiratory exam: Present: normal lung sounds bilaterally. Absent: respiratory distress, wheezes, rales, rhonchi, stridor, chest wall tenderness, accessory muscle use, decreased breath sounds, prolonged expiratory - Cardiovascular Cardiovascular Exam: Present: regular rate, normal rhythm, normal heart sounds. Absent: bradycardia, tachycardia, irregular rhythm, systolic murmur, diastolic murmur, rubs, gallop - GI/Abdominal GI/Abdominal exam: Present: soft, normal bowel sounds. Absent: distended, tenderness, guarding, rebound, rigid, pulsatile mass - Extremities Exam Extremities exam: Present: normal inspection, full ROM, normal capillary refill , other (left upper extremity AV fistula is appreciated, with appropriate thrill. There is no redness, pus or streaking). Absent: tenderness, pedal edema, joint swelling, calf tenderness - Back Exam Back exam: Present: normal inspection, full ROM. Absent: tenderness, CVA tenderness (R), CVA tenderness (L), muscle spasm, paraspinal tenderness, vertebral tenderness - Neurological Exam Neurological exam: Present: alert, oriented X3, other (Extraocular movements intact. Tongue midline. No facial droop. Facial sensation intact to light touch in the V1, V2, V3 distribution bilaterally. 5 and 5 strength in 4 extremities.. Sensation is intact to light touch in 4 extremities.). Absent: motor sensory deficit - Psychiatric Psychiatric exam: Present: normal affect, normal mood - Skin Skin exam: Present: warm, dry, intact, normal color. Absent: rash ED Course Vital Signs 12/25/16 12/25/16 12/25/16 11:16 13:02 14:00 Temperature 97.9 F 97.9 F Pulse Rate 90 91 H Respiratory 14 Rate Blood Pressure 179/90 Blood Pressure 188/89 [Right] O2 Sat by Pulse 94 95 95 Oximetry 12/25/16 12/25/16 12/25/16 14:10 14:45 14:49 Temperature Pulse Rate 85 88 83 Respiratory Rate Blood Pressure 188/89 202/102 Blood Pressure [Right] O2 Sat by Pulse Oximetry 12/25/16 12/25/16 12/25/16 15:00 15:08 15:15 Temperature 98.4 F Pulse Rate 84 84 84 Respiratory 18 Rate Blood Pressure 184/96 170/86 186/90 Blood Pressure [Right] O2 Sat by Pulse Oximetry 12/25/16 12/25/16 12/25/16 15:30 15:45 16:00 Temperature Pulse Rate 90 88 78 Respiratory Rate Blood Pressure 180/94 170/82 170/80 Blood Pressure [Right] O2 Sat by Pulse Oximetry 12/25/16 16:26 Temperature Pulse Rate 82 Respiratory Rate Blood Pressure 172/80 Blood Pressure [Right] O2 Sat by Pulse Oximetry - Reevaluation(s) Reevaluation #1: 12/25/16 14:19 Differential diagnosis: End-stage renal disease, hyperkalemia, acute coronary syndrome, pulmonary embolus, pneumonia, GERD, gastritis, noncompliance with dialysis therapy Assessment and plan: 66-year-old female, multiple medical issues, with chest pain and shortness of breath. Moderate to high risk by well's criteria, given recent hospital admission. Given her advanced age, underlying renal insufficiency, I felt the patient was very likely to have an elevated d-dimer, and therefore empirically obtained a CT angiogram of the chest to exclude pulmonary embolus. CT scan of the chest is negative for pulmonary embolus. The patient's EKG today is morphologically abnormal, but not morphologically consistent with study. The patient had a nuclear stress test at this facility on 12/22/2016, which demonstrated a dilated left ventricle, global left ventricular hypokinesis, and "small fixed distal inferior wall perfusion defect of uncertain significance." Furthermore, the patient had a cardiac catheterization at this hospital in August, demonstrated luminal disease. She was given mentioned glycerin for pain, and aspirin prior to my evaluation. Patient to be admitted for hyperkalemia, chest pain, elevated cardiac enzymes. Elevated cardiac enzymes are appreciated, given that patient has a history of renal insufficiency, the significance of this is uncertain, but most likely related to her underlying renal insufficiency. Case is discussed with the patient's private stroke coordinator, Dr. Todd, who is going to arrange emergent dialysis for her hyperkalemia, and postcontrast management. Case is discussed with the Hospital physician, Dr. Rooney, who accepts the patient to his service. I will defer to the inpatient team to contact cardiology for further management recommendations. ED Medical Decision Making - Lab Data Result diagrams: 12/25/16 11:36 12/25/16 11:36 Vital Signs 12/25/16 12/25/16 11:16 14:10 Temperature 97.9 F Pulse Rate 90 85 Blood Pressure 179/90 188/89 O2 Sat by Pulse 94 Oximetry Lab Results 12/25/16 12/25/16 12/25/16 Range/Units 11:36 11:36 12:46 WBC 5.5 (4.5-11.0) K/mm3 RBC 4.05 (3.65-5.03) M/mm3 Hgb 11.9 (10.1-14.3) gm/dl Hct 38.0 (30.3-42.9) % MCV 94 (79-97) fl MCH 30 (28-32) pg MCHC 31 (30-34) % RDW 18.5 H (13.2-15.2) % Plt Count 240 (140-440) K/mm3 Lymph % (Auto) 29.0 (13.4-35.0) % [place] % (Auto) 13.8 H (0.0-7.3) % Eos % (Auto) 1.8 (0.0-4.3) % Baso % (Auto) 0.8 (0.0-1.8) % Lymph # 1.6 (1.2-5.4) K/mm3 [place] # 0.8 (0.0-0.8) K/mm3 Eos # 0.1 (0.0-0.4) K/mm3 Baso # 0.0 (0.0-0.1) K/mm3 Seg Neutrophils % 54.6 (40.0-70.0) % Seg Neutrophils # 3.0 (1.8-7.7) K/mm3 PT 14.0 (12.2-14.9) Sec. INR 1.09 (0.87-1.13) Sodium 141 (137-145) mmol/L Potassium 5.7 H D (3.6-5.0) mmol/L Chloride 97.0 L (98-107) mmol/L Carbon Dioxide 22 (22-30) mmol/L Anion Gap 28 mmol/L BUN 73 H (7-17) mg/dL Creatinine 13.0 H D (0.7-1.2) mg/dL Estimated GFR 3 ml/min BUN/Creatinine Ratio 5.61 % Glucose 81 (65-100) mg/dL Calcium 9.0 (8.4-10.2) mg/dL Total Bilirubin 0.3 (0.1-1.2) mg/dL AST 24 (5-40) units/L ALT 27 (7-56) units/L Alkaline Phosphatase 104 (35-129) units/L Total Creatine Kinase 32 (30-135) units/L CK-MB (CK-2) 3.1 (0.0-4.0) ng/mL CK-MB (CK-2) Rel Index 9.6 H (0-4) Troponin T 0.124 H* D (0.00-0.029) ng/mL Total Protein 6.8 (6.3-8.2) g/dL Albumin 3.4 L (3.9-5) g/dL Albumin/Globulin Ratio 1.0 % - EKG Data -: EKG Interpreted by Me EKG shows normal: sinus rhythm - EKG Data 12/25/16 14:23 normal sinus, 100 bpm, QTC 511 ms, left ventricular hypertrophy, not consistent with STEMI. - Radiology Data Radiology results: report reviewed, image reviewed CT scan of the chest demonstrates no pulmonary embolus or acute disease. X-ray of the chest and straight chronic pulmonary vascular congestion, cardiomegaly, no acute disease. Critical care attestation.: If time is entered above; I have spent that time in minutes in the direct care of this critically ill patient, excluding procedure time. ED Disposition Clinical Impression: Chest pain, Hyperkalemia, End stage renal disease, ESRD (end stage renal disease) on dialysis, Elevated troponin Disposition: OP ADMITTED IP TO THIS HOSP Is pt being admited?: Yes Condition: Good
[2016-12-25] MEDS ORDERED: NACL ONE (12:57)
[2016-12-25] MEDS ORDERED: HEPARIN IV PRN (13:02)
[2016-12-25] MEDS ORDERED: NACL 0.9% 100 ML IV PRN (13:02)
[2016-12-25] MEDS ORDERED: HEPARIN 10,000 UNITS/10 ML IV PRN (13:02)
[2016-12-25 13:14] LABS: INR 1.09 (0.87-1.13)
--- NOTE | 2016-12-25 13:47 | Cat Scan Report ---
CTA CHEST: History: Chest pain, shortness of breath Technique: Helical CT following IV contrast. Pulmonary embolus protocol. Sagittal and coronal reformatted images. Rotational MIP images. Findings: Contrast bolus is satisfactory. No pulmonary embolus is identified. Mild cardiomegaly, mild pulmonary venous congestion and small right pleural effusion identified. No evidence for infiltrate, mass or pneumothorax. No thoracic adenopathy. Moderate thoracic spondylosis. Impression: No evidence for pulmonary embolus. CHF.
--- NOTE | 2016-12-25 13:52 | Admit Criteria Form ---
Admission Criteria Documentation: CHEST PAIN Clinical Indications for Admission to Inpatient Care (Place 'X' for any and all applicable criteria): Admission is indicated for chest pain and ANY ONE of the following(1)(2)(3)(4)(5 ): [ ]I. Angina with acute coronary syndrome (Also use Myocardial Infarction or Angina guideline) [ ]II. Hemodynamic instability [X ]III. Angina needing acute intervention as indicated by ALL of the following (11)(12): [ ]a) Unstable angina is present as indicated by angina that is ANY ONE of the following: [ ]i) New onset [ ]ii) Nocturnal [ ]iii) Prolonged at rest [ ]iv) Progressive [X]b) Angina warrants acute intervention as indicated by ANY ONE of the following: [ ]i) Recurrent angina (e.g, not responding as previously to treatment) [ ]ii) Angina at rest or with low-level activities despite initial medical therapy [ ]iii) New or presumably new ST-segment depression on ECG [ ]iv) Signs or symptoms of heart failure (eg, dyspnea, pulmonary edema) [ ]v) New or worsening mitral regurgitation [ ]vi) Hemodynamic instability [ ]vii) Dangerous arrhythmia (eg, sustained ventricular tachycardia) [ ]viii) History of percutaneous coronary intervention within 6 months [ ]ix) History of coronary artery bypass graft surgery [X]x) MONE risk score of 2 or greater[A] [X]xi) History of Diabetes(14) [ ]xii) High-risk cardiac ischemia findings on noninvasive testing (e.g, echocardiogram, treadmill testing, nuclear scan) [ ]xiii) Chronic renal insufficiency (ie, estimated GFR less than 60 mL/min/1.732m) [ ]xiv) Left ventricular ejection fraction less than 40% [ ]IV. Evidence of CA (eg, cardiac biomarkers positive, ST-segment elevation on ECG) also use Myocardial Infarction Criteria Form. [ ]V. Pulmonary edema [ ]. Respiratory distress [ ]VII. Chest pain indicative of serious diagnosis other than coronary artery disease (eg, aortic dissection) [X ]VIII. Contraindications and/or Inappropriate clinical situations for Observational Care in patients with Chest Pain, when ANY ONE of the following is required: [ ]a) Patient with risk factor for pulmonary embolism, acute coronary syndrome and myocardial infarction (18) [ ]b) Patient with Pulmonary embolism require an average LOS of 4.3 days, therefore emergency department observation management is inappropriate 18,23 [ ]c) Painful condition/s in the elderly, have the highest rate of recidivism after emergency department observation management (10.8%) 20,21,22 [X ]d) Elevated cardiac biomarker requires intensive and exhaustive care (19) [ ]IX. General contraindications and/or Inappropriate clinical situations for Observational Care in patients with Chest Pain, when ANY ONE of the following is required: [ ]a) Prediction of prolongation of LOS based on ANY ONE of the following may be considered as a contraindication for observational care 2, 3, 4, 5, 6, 7, 8, 9, 10, 11 [ ]i) Age > 65 yrs. [ ]ii) Patient arriving by ambulance [ ]iii) Patient with high acuity [ ]iv) Patient requiring vital sign monitoring [ ]v) Patient on IV medication [ ]b) Systolic blood pressures 180mmHg 3,12 [ ]c) Patient with altered mental status including delirium and other alteration of consciousness, (3) [ ]d) Patient whose discharge disposition will be to a intermediate home or rehabilitation home should not be managed in Emergency Department Observation Unit. CMS rule requires 3 days hospital stay before such placement. 3,13 [ ]e) Patient with failure to thrive due to broad array of etiologies 3,16,17 [ ]f) Inability to ambulate 3,14 Extended stay beyond goal length of stay may be needed for (1)(28): [ ]a) Specific condition diagnosed after evaluation (eg, pulmonary embolism, aortic dissection) [ ]b) Unstable angina [ ]c) Continued suspicion of acute coronary syndrome with inability to complete needed cardiac evaluation (eg, patient clinically unable to undergo stress testing) [ ]d) Myocardial infarction (Contents from ANGINA and CHEST PAIN clinical indications for admission to inpatient care have been integrated in this form) The original [employer] content created by [employer] has been revised. The portions of the content which have been revised are identified through the use of italic text or in bold, and [employer] has neither reviewed nor approved the modified material. All other unmodified content is copyright [employer]. Please see references footnoted in the original [employer] edition 2016 Admission Criteria Met: Yes
[2016-12-25] MEDS ORDERED: NITROSTAT SL ONE (14:05)
--- NOTE | 2016-12-25 16:02 | Consultation ---
History of Present Illness - Reason for Consult Consult date: 12/25/16 Requesting physician: CON JAMES - History of Present Illness 66-year-old AAF with a history of end-stage renal disease on hemodialysis on a Sunday, Sunday and Sunday schedule at [place], admitted after she presented with right sided chest pain which is non radiating. No exacerbating factors and relieved with pain meds. She was hospitalized last week also with chest pain. We are consulted to assist with management of her ESRD, accelerated HTN and hyperkalemia. Her last HD was on Sunday(missed on Sunday). 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 denies: alcohol abuse, prescription drug abuse, IV drug use Family history: hypertension (both parents and a brother), other (other father of complications of rheumatic fever. Mother in her 60s with kidney failure. One brother was on dialysis before he ) Medications and Allergies Allergies Allergy/AdvReac Type Severity Reaction Status Date / Time No Known Allergies Allergy Verified 12/09/13 08:59 Home Medications Medication Instructions Recorded Confirmed Last Taken Type Lisinopril [Zestril TAB] 20 mg PO QDAY #30 tablet 12/13/13 12/25/16 1 Day Ago Rx Allopurinol [Zyloprim] 100 mg PO DAILY 08/03/14 12/25/16 1 Day Ago History Cinacalcet [Sensipar] 60 mg PO QDAY 09/13/16 12/25/16 1 Day Ago History Docusate Sodium [Colace CAP] 100 mg PO BID PRN 09/13/16 12/25/16 1 Day Ago History Sevelamer Carbonate [Renvela] 800 mg PO TIDWM 09/13/16 12/25/16 1 Day Ago History AtorvaSTATin [Lipitor] 40 mg PO QHS #30 tablet 10/05/16 12/25/16 2 Days Ago Rx Pantoprazole [Protonix TAB] 40 mg PO QDAY #30 tablet 10/05/16 12/25/16 1 Day Ago Rx Carvedilol [Coreg] 12.5 mg PO BID 10/16/16 12/25/16 1 Day Ago History Amoxicillin/K Clav Tab [Augmentin 875 mg PO TID #0 11/27/16 12/25/16 2 Days Ago History 875MG TAB] Dialyvite 800 Plus D Wafer 800 mg PO QDAY 11/27/16 12/25/16 1 Day Ago History Aspirin EC [Aspirin Enteric Coated 81 mg PO QDAY #30 tablet.dr 11/29/16 1 Day Ago Rx TAB] traMADol [Ultram 50 MG tab] 50 mg PO Q6HR PRN #20 tablet 11/30/16 12/25/16 1 Day Ago Rx Active Meds: Active Medications Heparin Sodium (Porcine) (Heparin 10,000 Units/10 Ml) 2,000 unit IV JOAN PRN PRN Reason: hemodialysis Heparin Sodium (Porcine) (Heparin) 5,000 unit IV JOAN PRN PRN Reason: hemodialysis Sodium Chloride (Nacl 0.9%) 100 mls @ 999 mls/hr IV JOAN PRN PRN Reason: Hypotension Review of Systems Constitutional: no weight loss, no weight gain, no fever, no chills Ears, nose, mouth and throat: no decreased hearing, no nose pain, no nasal congestion Breasts: deferred Cardiovascular: chest pain, orthopnea, no palpitations, no edema Respiratory: no cough Gastrointestinal: abdominal pain, no nausea, no vomiting, no diarrhea Genitourinary Female: no pelvic pain, no flank pain Musculoskeletal: no neck stiffness, no neck pain, no shooting arm pain, no arm numbness/tingling Integumentary: no rash, no pruritis Neurological: no weakness, no parathesias, no numbness, no tingling Exam - Vital Signs Vital signs: Vital Signs Temp Pulse BP Pulse Ox 97.9 F 90 179/90 94 12/25/16 11:16 12/25/16 11:16 12/25/16 11:16 12/25/16 11:16 - General Appearance General appearance: well-developed, well-nourished, appears stated age EENT: PERRL, mucous membranes moist Neck: Present: neck supple, trachea midline. Absent: JVD/HJR, Masses Respiratory: Rales, Other (no wheezing ) Heart: regular, normal heart rate, S1S2, no murmurs Gastrointestinal: Present: normal, normoactive bowel sounds. Absent: tenderness , distended, masses, guarding Integumentary: no rash, warm and dry Neurologic: no focal deficit, alert and oriented x3, gait normal, strength 5/5 Musculoskeletal: Absent: deformities, joint swelling Psychiatric: mood/affect appropriate, cooperative Results - Lab Results 12/25/16 11:36 12/25/16 11:36 Most recent lab results Calcium 9.0 mg/dL (8.4-10.2) 12/25/16 11:36 Assessment and Plan (1) Recurrent Chest pain Current Visit: Yes Status: Acute Plan to address problem: CTA negative for PE She had stress test in 12/2016, which showed a dilated left ventricle, global left ventricular hypokinesis, and small fixed distal inferior wall perfusion defect of uncertain significance. She had cardiac cath in which showed luminal disease. (2) End stage renal disease Current Visit: Yes Status: Chronic Plan to address problem: HD arrangements made for today. Goal UF 2-3 L as tolerated She did recieve a contrast based study today and missed HD on Sunday (4) Anemia in end-stage renal disease Current Visit: No Status: Acute Plan to address problem: No [place], Hgb> 11 (5) Hypertensive chronic kidney disease with stage 5 chronic kidney disease or end stage renal disease Current Visit: No Status: Acute Plan to address problem: Resume home oral antihypertensives Pain control Will remove 2-3 L Fluid on dialysis-this should also help with her BP IV hydrazine PRN for SBP >150 (6) Hyperkalemia 2/2 missed HD Current Visit: No Status: Acute Pt missed dialysis on Sunday Will correct on dialysis
[2016-12-25] MEDS ORDERED: NACL 0.9 (PRIMING MACHINE ONLY DIALYSIS) MC ONE (16:05)
[2016-12-25] MEDS ORDERED: ZOFRAN IV PRN (20:51)
[2016-12-25] MEDS: DILAUDID IV PRN (21:31)
--- NOTE | 2016-12-25 23:51 | History and Physical Report ---
History of Present Illness Date of examination: 12/25/16 Date of admission: 12/25/16 14:24 Chief complaint: Chest pain History of present illness: This is a 66-year-old female. She has a past medical history of end-stage renal disease, on dialysis Sunday, Sunday, Sunday. She was last dialyzed on Sunday. Also has a history of hypertension, cardiac disease. The patient presents to the ER complaining of right-sided chest pain. The chest pain is sharp. It does not radiate to the back. There is positive shortness of breath. There is no leg pain. There is no leg swelling. Positive recent admission to this hospital. Chest pain does not have any exacerbating or relieving factors. There is no cough. Positive chronic shortness of breath which is not new, worsening or different.No diaphoresis.No palpitationsPain is 6 on a scale of 1 to 10 Past History Past Medical History: ESRD, hypertension Past Surgical History: Other (AV Fistula) Social history: denies: smoking, alcohol abuse Family history: hypertension Medications and Allergies Allergies Allergy/AdvReac Type Severity Reaction Status Date / Time No Known Allergies Allergy Verified 12/09/13 08:59 Home Medications Medication Instructions Recorded Confirmed Last Taken Type Lisinopril [Zestril TAB] 20 mg PO QDAY #30 tablet 12/13/13 12/25/16 1 Day Ago Rx Allopurinol [Zyloprim] 100 mg PO DAILY 08/03/14 12/25/16 1 Day Ago History Cinacalcet [Sensipar] 60 mg PO QDAY 09/13/16 12/25/16 1 Day Ago History Docusate Sodium [Colace CAP] 100 mg PO BID PRN 09/13/16 12/25/16 1 Day Ago History Sevelamer Carbonate [Renvela] 800 mg PO TIDWM 09/13/16 12/25/16 1 Day Ago History AtorvaSTATin [Lipitor] 40 mg PO QHS #30 tablet 10/05/16 12/25/16 2 Days Ago Rx Pantoprazole [Protonix TAB] 40 mg PO QDAY #30 tablet 10/05/16 12/25/16 1 Day Ago Rx Carvedilol [Coreg] 12.5 mg PO BID 10/16/16 12/25/16 1 Day Ago History Amoxicillin/K Clav Tab [Augmentin 875 mg PO TID #0 11/27/16 12/25/16 2 Days Ago History 875MG TAB] Dialyvite 800 Plus D Wafer 800 mg PO QDAY 11/27/16 12/25/16 1 Day Ago History Aspirin EC [Aspirin Enteric Coated 81 mg PO QDAY #30 tablet. 11/29/16 1 Day Ago Rx TAB] traMADol [Ultram 50 MG tab] 50 mg PO Q6HR PRN #20 tablet 11/30/16 12/25/16 1 Day Ago Rx Active Meds: Active Medications Heparin Sodium (Porcine) (Heparin 10,000 Units/10 Ml) 2,000 unit IV JOAN PRN PRN Reason: hemodialysis Last Admin: 12/25/16 16:23 Dose: 2,000 unit Heparin Sodium (Porcine) (Heparin) 5,000 unit IV JOAN PRN PRN Reason: hemodialysis Hydromorphone HCl (Dilaudid) 1 mg IV Q4H PRN PRN Reason: Pain , Severe (7-10) Last Admin: 12/25/16 21:31 Dose: 1 mg Sodium Chloride (Nacl 0.9%) 100 mls @ 999 mls/hr IV JOAN PRN PRN Reason: Hypotension Ondansetron HCl (Zofran) 4 mg IV Q4H PRN PRN Reason: Nausea And Vomiting Review of Systems All systems: negative Constitutional: no weight loss, no weight gain, no fever, no chills Ears, nose, mouth and throat: no ear pain, no ear discharge, no tinnitis, no decreased hearing, no dysphagia, no hoarseness, no sore throat Breasts: deferred Cardiovascular: chest pain, shortness of breath, dyspnea on exertion, no orthopnea Respiratory: no cough, no cough with sputum, no excessive sputum, no hemoptysis , no congestion, no wheezing Gastrointestinal: no abdominal pain, no nausea, no vomiting, no diarrhea, no constipation, no change in bowel habits, no hematemesis, no coffee ground emesis Menstruation: ammenorrhea Rectal: no bleeding Musculoskeletal: no neck stiffness, no neck pain, no shooting arm pain, no arm numbness/tingling, no low back pain Integumentary: no rash, no pruritis, no redness, no sores, no wounds, no jaundice, no boils, no blisters Neurological: no head injury, no transient paralysis, no paralysis, no weakness , no parathesias, no numbness, no tingling, no seizures, no syncope, no tremors , no ataxia, no lack of coordination Psychiatric: no anxiety, no depression Endocrine: no cold intolerance, no heat intolerance, no polyphagia, no excessive thirst, no polydipsia, no nocturia Hematologic/Lymphatic: no easy bruising, no easy bleeding Allergic/Immunologic: no urticaria, no allergic rhinitis, no wheezing Exam - Physical Exam Narrative exam: WD WN female in Dialysis on second floor - Constitutional Vitals: Temp Pulse Resp BP Pulse Ox 98.2 F 95 H 18 150/69 97 12/25/16 21:50 12/25/16 21:50 12/25/16 21:50 12/25/16 21:50 12/25/16 21:50 General appearance: Present: no acute distress, well-nourished - EENT Eyes: Present: PERRL ENT: hearing intact, clear oral mucosa - Neck Neck: Present: supple, normal ROM - Respiratory Respiratory effort: normal Respiratory: bilateral: CTA - Cardiovascular Heart rate: 80 Rhythm: regular Heart Sounds: Present: S1 & S2. Absent: rub, click - Extremities Extremities: pulses symmetrical, No edema Peripheral Pulses: within normal limits - Abdominal General gastrointestinal: Present: soft, non-tender, non-distended, normal bowel sounds Female genitourinary: Present: normal - Rectal Rectal Exam: deferred - Integumentary Integumentary: Present: clear, warm, dry - Musculoskeletal Musculoskeletal: gait normal, strength equal bilaterally - Psychiatric Psychiatric: appropriate mood/affect, intact judgment & insight - Neurologic Neurologic: CNII-XII intact, moves all extremities - Allied Health Allied health notes reviewed: nursing, case management Results - Labs CBC & Chem 7: 12/25/16 11:36 12/25/16 11:36 Labs: Laboratory Last Values WBC 5.5 K/mm3 (4.5-11.0) 12/25/16 11:36 RBC 4.05 M/mm3 (3.65-5.03) 12/25/16 11:36 Hgb 11.9 gm/dl (10.1-14.3) 12/25/16 11:36 Hct 38.0 % (30.3-42.9) 12/25/16 11:36 MCV 94 fl (79-97) 12/25/16 11:36 MCH 30 pg (28-32) 12/25/16 11:36 MCHC 31 % (30-34) 12/25/16 11:36 RDW 18.5 % (13.2-15.2) H 12/25/16 11:36 Plt Count 240 K/mm3 (140-440) 12/25/16 11:36 Lymph % (Auto) 29.0 % (13.4-35.0) 12/25/16 11:36 [place] % (Auto) 13.8 % (0.0-7.3) H 12/25/16 11:36 Eos % (Auto) 1.8 % (0.0-4.3) 12/25/16 11:36 Baso % (Auto) 0.8 % (0.0-1.8) 12/25/16 11:36 Lymph # 1.6 K/mm3 (1.2-5.4) 12/25/16 11:36 [place] # 0.8 K/mm3 (0.0-0.8) 12/25/16 11:36 Eos # 0.1 K/mm3 (0.0-0.4) 12/25/16 11:36 Baso # 0.0 K/mm3 (0.0-0.1) 12/25/16 11:36 Seg Neutrophils % 54.6 % (40.0-70.0) 12/25/16 11:36 Seg Neutrophils # 3.0 K/mm3 (1.8-7.7) 12/25/16 11:36 PT 14.0 Sec. (12.2-14.9) 12/25/16 12:46 INR 1.09 (0.87-1.13) 12/25/16 12:46 Sodium 141 mmol/L (137-145) 12/25/16 11:36 Potassium 5.7 mmol/L (3.6-5.0) H D 12/25/16 11:36 Chloride 97.0 mmol/L (98-107) L 12/25/16 11:36 Carbon Dioxide 22 mmol/L (22-30) 12/25/16 11:36 Anion Gap 28 mmol/L 12/25/16 11:36 BUN 73 mg/dL (7-17) H 12/25/16 11:36 Creatinine 13.0 mg/dL (0.7-1.2) H D 12/25/16 11:36 Estimated GFR 3 ml/min 12/25/16 11:36 BUN/Creatinine Ratio 5.61 % 12/25/16 11:36 Glucose 81 mg/dL (65-100) 12/25/16 11:36 Calcium 9.0 mg/dL (8.4-10.2) 12/25/16 11:36 Total Bilirubin 0.3 mg/dL (0.1-1.2) 12/25/16 11:36 AST 24 units/L (5-40) 12/25/16 11:36 ALT 27 units/L (7-56) 12/25/16 11:36 Alkaline Phosphatase 104 units/L (35-129) 12/25/16 11:36 Total Creatine Kinase 32 units/L (30-135) 12/25/16 11:36 CK-MB (CK-2) 3.1 ng/mL (0.0-4.0) 12/25/16 11:36 CK-MB (CK-2) Rel Index 9.6 (0-4) H 12/25/16 11:36 Troponin T 0.124 ng/mL (0.00-0.029) H* D 12/25/16 11:36 NT-Pro-B Natriuret Pep > 7000 pg/mL (0-900) H 12/25/16 11:36 Total Protein 6.8 g/dL (6.3-8.2) 12/25/16 11:36 Albumin 3.4 g/dL (3.9-5) L 12/25/16 11:36 Albumin/Globulin Ratio 1.0 % 12/25/16 11:36 - Imaging and Cardiology EKG: report reviewed (NSR non specific st t wave changes) Assessment and Plan Advance Directives: Yes (Full code) VTE prophylaxis?: Chemical - Patient Problems (1) Chest pain Current Visit: Yes Status: Acute Qualifiers: Chest pain type: unspecified Qualified Code(s): R07.9 - Chest pain, unspecified Plan to address problem: Chest pain r/o [place] protocol.Serial cardiac enzymes and Lexiscan in AM (2) Hyperkalemia Current Visit: Yes Status: Chronic Plan to address problem: To be corrected during dialysis with low mK bath (3) End stage renal disease on dialysis Current Visit: Yes Status: Chronic Plan to address problem: Cont HD.Also cont Sensipar and Dialyvite (4) Dyslipidemia Current Visit: No Status: Chronic Plan to address problem: Cont statins (5) HTN (hypertension) Current Visit: No Status: Chronic Qualifiers: Hypertension type: essential hypertension Qualified Code(s): I10 - Essential (primary) hypertension Plan to address problem: Coint antihypertensives (6) Gout Current Visit: Yes Status: Chronic Qualifiers: Gout site: G Gout etiology: due to renal impairment Encounter type: E Laterality: L Chronicity: C Presence of tophus: P Plan to address problem: Cont Allopurinol (7) GERD (gastroesophageal reflux disease) Current Visit: Yes Status: Chronic Qualifiers: Esophagitis presence: without esophagitis Qualified Code(s): K21.9 - Gastro -esophageal reflux disease without esophagitis Plan to address problem: Cont Protonix 40 mg po qd (8) DVT prophylaxis Current Visit: Yes Status: Acute Plan to address problem: on heparin 5000 q12
[2016-12-26] MEDS ORDERED: SODIUM CHLORIDE FLUSH SYRINGE 10 ML IV PRN (01:37)
[2016-12-26] MEDS: DILAUDID IV PRN ×4 (02:30→20:42)
[2016-12-26] MEDS ORDERED: ULTRAM PO PRN (09:00)
[2016-12-26] MEDS ORDERED: COLACE PO PRN (09:00)
[2016-12-26] MEDS ORDERED: [UNRECOGNIZED DRUG - OTHER] PO SCH (10:00)
[2016-12-26] MEDS ORDERED: DIALYVITE PO SCH (10:00)
--- NOTE | 2016-12-26 10:03 | Progress Note ---
Assessment and Plan Assessment and plan: Patient is a 66-year-old woman with day history of tobacco dependency, peripheral vascular disease, end-stage renal disease on hemodialysis, CHF EF 35- 40%, CAD, s/p PCI (PCI of RCA in 08/2016 with subsequent subacute thrombus of the proximal RCA stent and balloon angioplasty with resolution of thrombus on ), and hypertension who presents with chest pain shortness of breath from dialysis center. She had a CTA of the chest which showed no PE but positive for CHF. She was also found to have hyperkalemia and elevated troponin. She underwent hemodialysis yesterday and feels much better. -Acute on chronic HFrEF: continue to duiresis during dialysis, consult to cardiology -End-stage renal disease on hemodialysis: Consult nephrology -Hyperkalemia: Repeat -Hypertension with heart disease: Continue to monitor consult cardiology -Chest pain and elevated troponin: Cardiology to evaluate History Interval history: Patient seen and examined. Follow up on shortness of breath which is improved. Overnight uneventful. No cp, sob, n/v or severe headaches. Imaging, old records , testing, labs, nursing notes reviewed. Plan discussed with patient. Hospitalist Physical - Physical exam Narrative exam: GEN: Thin frail NAD, AWAKE, ALERT, ORIENTATED 3 HEENT: NCAT, PERRL, EOMI, OP CLEAR NECK: SUPPLE, NO THYROMEGALY, NO JVD, NO LAD CVS: RRR, NORMAL S1S2 LUNGS/CHEST: Slight bibasilar crackles, NORMAL CHEST EXPANSION B, GOOD AIR ENTRY B ABD: SOFT NTND, GBS, NO REBOUND OR GUARDING EXT/SKIN: NO SIGNIFICANT EDEMA OR RASH MSK: FROM X 4 EXTREMITIES NEURO: CN 2-12 GROSSLY INTACT, NO new FOCAL DEFICITS PSY: CALM - Constitutional Vitals: Temp Pulse Resp BP Pulse Ox 98.4 F 90 18 146/65 98 12/26/16 01:00 12/26/16 01:00 12/26/16 01:00 12/26/16 01:00 12/26/16 01:00 General appearance: Present: no acute distress, well-nourished Results - Labs CBC & Chem 7: 12/25/16 11:36 12/25/16 11:36 Labs: Laboratory Last Values WBC 5.5 K/mm3 (4.5-11.0) 12/25/16 11:36 RBC 4.05 M/mm3 (3.65-5.03) 12/25/16 11:36 Hgb 11.9 gm/dl (10.1-14.3) 12/25/16 11:36 Hct 38.0 % (30.3-42.9) 12/25/16 11:36 MCV 94 fl (79-97) 12/25/16 11:36 MCH 30 pg (28-32) 12/25/16 11:36 MCHC 31 % (30-34) 12/25/16 11:36 RDW 18.5 % (13.2-15.2) H 12/25/16 11:36 Plt Count 240 K/mm3 (140-440) 12/25/16 11:36 Lymph % (Auto) 29.0 % (13.4-35.0) 12/25/16 11:36 [place] % (Auto) 13.8 % (0.0-7.3) H 12/25/16 11:36 Eos % (Auto) 1.8 % (0.0-4.3) 12/25/16 11:36 Baso % (Auto) 0.8 % (0.0-1.8) 12/25/16 11:36 Lymph # 1.6 K/mm3 (1.2-5.4) 12/25/16 11:36 [place] # 0.8 K/mm3 (0.0-0.8) 12/25/16 11:36 Eos # 0.1 K/mm3 (0.0-0.4) 12/25/16 11:36 Baso # 0.0 K/mm3 (0.0-0.1) 12/25/16 11:36 Seg Neutrophils % 54.6 % (40.0-70.0) 12/25/16 11:36 Seg Neutrophils # 3.0 K/mm3 (1.8-7.7) 12/25/16 11:36 PT 14.0 Sec. (12.2-14.9) 12/25/16 12:46 INR 1.09 (0.87-1.13) 12/25/16 12:46 Sodium 141 mmol/L (137-145) 12/25/16 11:36 Potassium 5.7 mmol/L (3.6-5.0) H D 12/25/16 11:36 Chloride 97.0 mmol/L (98-107) L 12/25/16 11:36 Carbon Dioxide 22 mmol/L (22-30) 12/25/16 11:36 Anion Gap 28 mmol/L 12/25/16 11:36 BUN 73 mg/dL (7-17) H 12/25/16 11:36 Creatinine 13.0 mg/dL (0.7-1.2) H D 12/25/16 11:36 Estimated GFR 3 ml/min 12/25/16 11:36 BUN/Creatinine Ratio 5.61 % 12/25/16 11:36 Glucose 81 mg/dL (65-100) 12/25/16 11:36 Calcium 9.0 mg/dL (8.4-10.2) 12/25/16 11:36 Total Bilirubin 0.3 mg/dL (0.1-1.2) 12/25/16 11:36 AST 24 units/L (5-40) 12/25/16 11:36 ALT 27 units/L (7-56) 12/25/16 11:36 Alkaline Phosphatase 104 units/L (35-129) 12/25/16 11:36 Total Creatine Kinase 26 units/L (30-135) L 12/26/16 05:21 CK-MB (CK-2) 2.0 ng/mL (0.0-4.0) 12/26/16 05:21 CK-MB (CK-2) Rel Index 7.6 (0-4) H 12/26/16 05:21 Troponin T 0.141 ng/mL (0.00-0.029) H* 12/26/16 05:21 NT-Pro-B Natriuret Pep > 7000 pg/mL (0-900) H 12/25/16 11:36 Total Protein 6.8 g/dL (6.3-8.2) 12/25/16 11:36 Albumin 3.4 g/dL (3.9-5) L 12/25/16 11:36 Albumin/Globulin Ratio 1.0 % 12/25/16 11:36 - Imaging and Cardiology CT scan - chest: report reviewed
[2016-12-26] MEDS ORDERED: D50W (25GM) IV PRN (10:08)
[2016-12-26] MEDS: COREG PO SCH ×2 (10:44→21:19)
[2016-12-26] MEDS: RENVELA PO SCH ×3 (10:44→17:33)
[2016-12-26] MEDS: HALFPRIN EC PO SCH (10:44)
[2016-12-26] MEDS: PROTONIX PO SCH (10:45)
[2016-12-26] MEDS: ZESTRIL PO SCH (10:45)
[2016-12-26] MEDS: SENSIPAR PO SCH (10:45)
[2016-12-26] MEDS: ZYLOPRIM PO SCH (10:46)
[2016-12-26 11:09] LABS: Creatine Kinase MB 1.9 ng/mL (0.0-4.0)
[2016-12-26] MEDS ORDERED: NOVOLOG SUB-Q SCH (11:30)
--- NOTE | 2016-12-26 13:27 | Progress Note ---
Assessment and Plan (1) Recurrent Chest pain Current Visit: Yes Status: Acute Plan to address problem: CTA negative for PE She had stress test in 12/2016, which showed a dialated left ventricle, global left ventricular hypokinesis, and small fixed distal inferior wall perfusion defect of uncertain significance. She had cardiac cath in which showed luminal disease. (2) End stage renal disease Current Visit: Yes Status: Chronic Plan to address problem: HD on MWF schedule (4) Anemia in end-stage renal disease Current Visit: No Status: Acute Plan to address problem: No [place], Hgb> 11 (5) Hypertensive chronic kidney disease with stage 5 chronic kidney disease or end stage renal disease Current Visit: No Status: Acute Plan to address problem: BP improved. Continue home oral antihypertensives Pain control (6) Hyperkalemia 2/2 missed HD Current Visit: No Status: Acute She is s/p HD F/U on K level today Subjective Date of service: 12/26/16 Interval history: No SOB today. C/O Multiple site body aches Objective - Vital Signs Vital signs: Vital Signs - 12hr 12/26/16 12/26/16 09:50 10:00 Pulse Rate [ 92 H Right] Respiratory 20 Rate Respiratory 20 Rate [Right Lower Back] Respiratory 20 Rate [abd] O2 Sat by Pulse 98 98 Oximetry - General Appearance General appearance: well-developed, well-nourished, appears stated age EENT: PERRL, mucous membranes moist Neck: no JVD, no thyromegaly, no carotid bruit, supple Respiratory: Present: Clear to Ascultation. Absent: Wheezes Cardiology: regular, normal heart rate, S1S2, no murmurs Gastrointestinal: normoactive bowel sounds, no tenderness Integumentary: no rash, warm and dry Neurologic: no focal deficit, alert and oriented x3, reflexes 2+ and symmetric, gait normal, strength 5/5 Musculoskeletal: no deformities, no erythema, no cyanosis, no clubbing Psychiatric: mood/affect appropriate, cooperative - Lab 12/25/16 11:36 12/25/16 11:36 Most recent lab results Calcium 9.0 mg/dL (8.4-10.2) 12/25/16 11:36
[2016-12-26] MEDS: Renal Caps PO SCH (15:23)
[2016-12-27] MEDS: DILAUDID IV PRN ×5 (00:27→22:34)
[2016-12-27] MEDS ORDERED: APRESOLINE IV PRN (00:48)
[2016-12-27 08:13] LABS: BUN/Creatinine Ratio 4.32; Calcium 9.3 mg/dL (8.4-10.2); Chloride 97.9 mmol/L (98-107); Potassium 4.9 mmol/L (3.6-5.0)
[2016-12-27 08:14] LABS: Hematocrit 35.6 % (30.3-42.9); Hemoglobin 11.2 gm/dl (10.1-14.3); Mean Corpuscular HGB Conc 32 % (30-34); Mean Corpuscular Hemoglobin 30 pg (28-32); Mean Corpuscular Volume 94 fl (79-97); Platelet Count 237 K/mm3 (140-440); Red Blood Count 3.78 M/mm3 (3.65-5.03); Red Cell Distribution Width 19.1 % (13.2-15.2); White Blood Count 4.8 K/mm3 (4.5-11.0)
[2016-12-27] MEDS: RENVELA PO SCH ×3 (08:32→17:04)
[2016-12-27] MEDS ORDERED: NACL 0.9% 100 ML IV PRN (09:06)
[2016-12-27] MEDS: HALFPRIN EC PO SCH (09:12)
[2016-12-27] MEDS: ZYLOPRIM PO SCH (09:13)
[2016-12-27] MEDS: SENSIPAR PO SCH (09:13)
[2016-12-27] MEDS: Renal Caps PO SCH (09:13)
[2016-12-27] MEDS: PROTONIX PO SCH (09:13)
[2016-12-27] MEDS ORDERED: NACL 0.9 (PRIMING MACHINE ONLY DIALYSIS) MC ONE (12:44)
--- NOTE | 2016-12-27 13:41 | Progress Note ---
Assessment and Plan Assessment and plan: Patient is a 66-year-old woman with day history of tobacco dependency, peripheral vascular disease, end-stage renal disease on hemodialysis, CHF EF 35- 40%, CAD, s/p PCI (PCI of RCA in 08/2016 with subsequent subacute thrombus of the proximal RCA stent and balloon angioplasty with resolution of thrombus on ), and hypertension who presents with chest pain shortness of breath from dialysis center. She had a CTA of the chest which showed no PE but positive for CHF. She was also found to have hyperkalemia and elevated troponin. She underwent hemodialysis yesterday and feels much better. -Acute on chronic HFrEF: continue to duiresis during dialysis, consulted to cardiology -End-stage renal disease on hemodialysis: Consulted nephrology -Hyperkalemia resolved. -Hypertension with heart disease: Continue to monitor consult cardiology -Chest pain and elevated troponin: Cardiology to evaluate Anticipate once chest pain free. History Interval history: Patient seen and examined. Follow up on shortness of breath which is improved. Overnight uneventful. No sob, n/v or severe headaches. Imaging, old records, testing, labs, nursing notes reviewed. Plan discussed with patient. SonTrey at bedside. Pt denies cp to me but c/o cp to son Trey. I spoke with Trey outside the room and he thinks his mother is having memory loss and signs of dementia over last 2-3 months Hospitalist Physical - Physical exam Narrative exam: GEN: Thin frail NAD, AWAKE, ALERT, ORIENTATED 3 HEENT: NCAT, PERRL, EOMI, OP CLEAR NECK: SUPPLE, NO THYROMEGALY, NO JVD, NO LAD CVS: RRR, NORMAL S1S2 LUNGS/CHEST: Slight bibasilar crackles, NORMAL CHEST EXPANSION B, GOOD AIR ENTRY B ABD: SOFT NTND, GBS, NO REBOUND OR GUARDING EXT/SKIN: NO SIGNIFICANT EDEMA OR RASH MSK: FROM X 4 EXTREMITIES NEURO: CN 2-12 GROSSLY INTACT, NO new FOCAL DEFICITS PSY: CALM - Constitutional Vitals: Temp Pulse Resp BP Pulse Ox 98 F 88 18 159/83 93 12/27/16 10:00 12/27/16 12:45 12/27/16 10:00 12/27/16 12:45 12/27/16 09:07 General appearance: Present: no acute distress, well-nourished Results - Labs CBC & Chem 7: 12/27/16 07:09 12/27/16 07:09 Labs: Laboratory Last Values WBC 4.8 K/mm3 (4.5-11.0) 12/27/16 07:09 RBC 3.78 M/mm3 (3.65-5.03) 12/27/16 07:09 Hgb 11.2 gm/dl (10.1-14.3) 12/27/16 07:09 Hct 35.6 % (30.3-42.9) 12/27/16 07:09 MCV 94 fl (79-97) 12/27/16 07:09 MCH 30 pg (28-32) 12/27/16 07:09 MCHC 32 % (30-34) 12/27/16 07:09 RDW 19.1 % (13.2-15.2) H 12/27/16 07:09 Plt Count 237 K/mm3 (140-440) 12/27/16 07:09 Lymph % (Auto) 29.0 % (13.4-35.0) 12/25/16 11:36 [place] % (Auto) 13.8 % (0.0-7.3) H 12/25/16 11:36 Eos % (Auto) 1.8 % (0.0-4.3) 12/25/16 11:36 Baso % (Auto) 0.8 % (0.0-1.8) 12/25/16 11:36 Lymph # 1.6 K/mm3 (1.2-5.4) 12/25/16 11:36 [place] # 0.8 K/mm3 (0.0-0.8) 12/25/16 11:36 Eos # 0.1 K/mm3 (0.0-0.4) 12/25/16 11:36 Baso # 0.0 K/mm3 (0.0-0.1) 12/25/16 11:36 Seg Neutrophils % 54.6 % (40.0-70.0) 12/25/16 11:36 Seg Neutrophils # 3.0 K/mm3 (1.8-7.7) 12/25/16 11:36 PT 14.0 Sec. (12.2-14.9) 12/25/16 12:46 INR 1.09 (0.87-1.13) 12/25/16 12:46 Sodium 141 mmol/L (137-145) 12/27/16 07:09 Potassium 4.9 mmol/L (3.6-5.0) 12/27/16 07:09 Chloride 97.9 mmol/L (98-107) L 12/27/16 07:09 Carbon Dioxide 26 mmol/L (22-30) 12/27/16 07:09 Anion Gap 22 mmol/L 12/27/16 07:09 BUN 42 mg/dL (7-17) H 12/27/16 07:09 Creatinine 9.7 mg/dL (0.7-1.2) H 12/27/16 07:09 Estimated GFR 5 ml/min 12/27/16 07:09 BUN/Creatinine Ratio 4.32 % 12/27/16 07:09 Glucose 79 mg/dL (65-100) 12/27/16 07:09 Calcium 9.3 mg/dL (8.4-10.2) 12/27/16 07:09 Total Bilirubin 0.3 mg/dL (0.1-1.2) 12/25/16 11:36 AST 24 units/L (5-40) 12/25/16 11:36 ALT 27 units/L (7-56) 12/25/16 11:36 Alkaline Phosphatase 104 units/L (35-129) 12/25/16 11:36 Total Creatine Kinase 27 units/L (30-135) L 12/26/16 10:20 CK-MB (CK-2) 1.9 ng/mL (0.0-4.0) 12/26/16 10:20 CK-MB (CK-2) Rel Index 7.0 (0-4) H 12/26/16 10:20 Troponin T 0.137 ng/mL (0.00-0.029) H* 12/26/16 10:20 NT-Pro-B Natriuret Pep > 7000 pg/mL (0-900) H 12/25/16 11:36 Total Protein 6.8 g/dL (6.3-8.2) 12/25/16 11:36 Albumin 3.4 g/dL (3.9-5) L 12/25/16 11:36 Albumin/Globulin Ratio 1.0 % 12/25/16 11:36
--- NOTE | 2016-12-27 14:12 | Consultation ---
History of Present Illness Consult date: 12/27/16 Requesting physician: MARK ANDERSON Consult reason: chest pain History of present illness: The patient is a 66 YO female with a past medical history significant for CAD, s /p PCI (PCI of RCA in 08/2016 with subsequent subacute thrombus of the proximal RCA stent and balloon angioplasty with resolution of thrombus on 11/28/2016), ESRD, on HD, HTN, PVD, and tobacco use. She is followed in our office by Dr. Ford. She presented with c/o one episode of transient chest pain on Sunday near the end of her HD. She describes her pain as a nonexertional, nonradiating , midsternal pressure. She denies any precipitating factors. The pain was alleviated after she arrived to ED and received analgesia. She denies any SOB, palpitations, diaphoresis, n/v, dizziness, or syncope. On evaluation, she denies any complaints. Past History Past Medical History: ESRD, hypertension Past Surgical History: Other (AV Fistula) Social history: denies: smoking, alcohol abuse Family history: hypertension Medications and Allergies Allergies Allergy/AdvReac Type Severity Reaction Status Date / Time No Known Allergies Allergy Verified 12/09/13 08:59 Home Medications Medication Instructions Recorded Confirmed Last Taken Type Lisinopril [Zestril TAB] 20 mg PO QDAY #30 tablet 12/13/13 12/25/16 1 Day Ago Rx Allopurinol [Zyloprim] 100 mg PO DAILY 08/03/14 12/25/16 1 Day Ago History Cinacalcet [Sensipar] 60 mg PO QDAY 09/13/16 12/25/16 1 Day Ago History Docusate Sodium [Colace CAP] 100 mg PO BID PRN 09/13/16 12/25/16 1 Day Ago History Sevelamer Carbonate [Renvela] 800 mg PO TIDWM 09/13/16 12/25/16 1 Day Ago History AtorvaSTATin [Lipitor] 40 mg PO QHS #30 tablet 10/05/16 12/25/16 2 Days Ago Rx Pantoprazole [Protonix TAB] 40 mg PO QDAY #30 tablet 10/05/16 12/25/16 1 Day Ago Rx Carvedilol [Coreg] 12.5 mg PO BID 10/16/16 12/25/16 1 Day Ago History Amoxicillin/K Clav Tab [Augmentin 875 mg PO TID #0 11/27/16 12/25/16 2 Days Ago History 875MG TAB] Dialyvite 800 Plus D Wafer 800 mg PO QDAY 11/27/16 12/25/16 1 Day Ago History Aspirin EC [Aspirin Enteric Coated 81 mg PO QDAY #30 tablet. 11/29/16 1 Day Ago Rx TAB] traMADol [Ultram 50 MG tab] 50 mg PO Q6HR PRN #20 tablet 11/30/16 12/25/16 1 Day Ago Rx Active Meds: Active Medications Allopurinol (Zyloprim) 100 mg PO DAILY [facility] Last Admin: 12/27/16 09:13 Dose: 100 mg Aspirin (Halfprin Ec) 81 mg PO QDAY [facility] Last Admin: 12/27/16 09:12 Dose: 81 mg Atorvastatin Calcium (Lipitor) 40 mg PO QHS [facility] Last Admin: 12/26/16 21:19 Dose: 40 mg Carvedilol (Coreg) 12.5 mg PO BID [facility] Last Admin: 12/26/16 21:19 Dose: 12.5 mg Cinacalcet (Sensipar) 60 mg PO QDAY [facility] Last Admin: 12/27/16 09:13 Dose: 60 mg Docusate Sodium (Colace) 100 mg PO BID PRN PRN Reason: Constipation Heparin Sodium (Porcine) (Heparin 10,000 Units/10 Ml) 2,000 unit IV JOAN PRN PRN Reason: hemodialysis Last Admin: 12/25/16 16:23 Dose: 2,000 unit Heparin Sodium (Porcine) (Heparin) 5,000 unit IV JOAN PRN PRN Reason: hemodialysis Hydralazine HCl (Apresoline) 5 mg IV Q6H PRN PRN Reason: Hypertension Last Admin: 12/27/16 01:23 Dose: 5 mg Hydromorphone HCl (Dilaudid) 1 mg IV Q4H PRN PRN Reason: Pain , Severe (7-10) Last Admin: 12/27/16 08:30 Dose: 1 mg Sodium Chloride (Nacl 0.9%) 100 mls @ 999 mls/hr IV JOAN PRN PRN Reason: Hypotension Sodium Chloride (Nacl 0.9%) 100 mls @ 999 mls/hr IV JOAN PRN PRN Reason: Hypotension Lisinopril (Zestril) 20 mg PO QDAY [facility] Last Admin: 12/26/16 10:45 Dose: 20 mg Multivit/Ca Carb/B Cmplx/FA/Prenat (Renal Caps) 1 cap PO QDAY [facility] Last Admin: 12/27/16 09:13 Dose: 1 cap Ondansetron HCl (Zofran) 4 mg IV Q4H PRN PRN Reason: Nausea And Vomiting Pantoprazole Sodium (Protonix) 40 mg PO QDAY [facility] Last Admin: 12/27/16 09:13 Dose: 40 mg Sevelamer Carbonate (Renvela) 800 mg PO TIDWM [facility] Last Admin: 12/27/16 08:32 Dose: 800 mg Sodium Chloride (Sodium Chloride Flush Syringe 10 Ml) 10 ml IV PRN PRN PRN Reason: LINE FLUSH Tramadol HCl (Ultram) 50 mg PO Q6HR PRN PRN Reason: Pain Review of Systems Constitutional: no weight loss, no weight gain, no fever, no chills, no sweats Ears, nose, mouth and throat: no ear pain, no nose pain, no nasal congestion, no nasal discharge, no sinus pressure, no sinus pain Breasts: no mass Cardiovascular: chest pain, no orthopnea, no palpitations, no rapid/irregular heart beat, no edema, no syncope, no lightheadedness, no shortness of breath, no dyspnea on exertion Respiratory: no cough, no shortness of breath, no dyspnea on exertion, no congestion, no wheezing, no pain Gastrointestinal: no abdominal pain, no nausea, no vomiting, no diarrhea, no constipation Genitourinary Female: no pelvic pain, no flank pain, no menorrhagia, no dysuria , no urinary frequency, no urgency Musculoskeletal: no neck stiffness, no neck pain, no shooting arm pain, no arm numbness/tingling, no low back pain, no shooting leg pain, no leg numbness/ tingling, no redness of joints Integumentary: no rash, no pruritis, no redness, no sores, no wounds Neurological: no transient paralysis, no paralysis, no weakness, no parathesias , no numbness, no tingling, no seizures, no syncope Endocrine: no cold intolerance, no heat intolerance Hematologic/Lymphatic: no easy bruising, no easy bleeding, no lymphadenopathy Allergic/Immunologic: no urticaria, no wheezing Physical Examination Last Vital Signs Temp 98.2 F 12/27/16 13:30 Pulse 78 12/27/16 13:30 Resp 18 12/27/16 13:30 BP 163/77 12/27/16 13:30 Pulse Ox 93 12/27/16 09:07 General appearance: no acute distress HEENT: Positive: PERRL, Normocephaly, Mucus Membranes Moist Neck: Positive: neck supple, trachea midline Cardiac: Positive: Reg Rate and Rhythm, S1/S2 Lungs: Positive: Normal Exam, clear to auscultation, Normal Breath Sounds Neuro: Positive: Grossly Intact, Cranial Nerve 2-12 Intact Abdomen: Positive: Unremarkable, Soft, Active Bowel Sounds Skin: Positive: Clear. Negative: Rash, Wound Musculoskeletal: No Fluid Collection, No Pain, Normal Range of Motion Extremities: Present: normal, upper extr. pulses, lower extr. pulses. Absent: edema Results 12/27/16 07:09 12/27/16 07:09 CBC 12/27/16 Range/Units 07:09 WBC 4.8 (4.5-11.0) K/mm3 RBC 3.78 (3.65-5.03) M/mm3 Hgb 11.2 (10.1-14.3) gm/dl Hct 35.6 (30.3-42.9) % Plt Count 237 (140-440) K/mm3 Comprehensive Metabolic Panel 12/27/16 Range/Units 07:09 Sodium 141 (137-145) mmol/L Potassium 4.9 (3.6-5.0) mmol/L Chloride 97.9 L (98-107) mmol/L Carbon Dioxide 26 (22-30) mmol/L BUN 42 H (7-17) mg/dL Creatinine 9.7 H (0.7-1.2) mg/dL Glucose 79 (65-100) mg/dL Calcium 9.3 (8.4-10.2) mg/dL Assessment and Plan Assessment: Chest pain, atypical - ECG with NAF, currently resolved; recent stress test on with no evidence of ischemia. Elevated troponin - flat; currently nonspecific in setting of ESRD. CAD, s/p PCI (PCI of RCA in 08/2016 with subsequent subacute thrombus of the proximal RCA stent and balloon angioplasty with resolution of thrombus on 2016) ESRD, on HD I/CMP - EF 35-30% on echo 11/2016 HTN PVD Tobacco use Plan: Cont home ASA 81, statin, effient, BB, ACEI. Resume Imdur - pt is unsure whether or not she was taking this medication at home. Cont tele. No indication for any further cardiac testing at this time. Assessment and plan reviewed with pt at bedside. The patient has been seen in conjunction with Dr. Khadra Still who agrees with the assessment and plan of care.
[2016-12-27] MEDS: ZESTRIL PO SCH (14:28)
[2016-12-27] MEDS: COREG PO SCH ×2 (14:29→22:36)
[2016-12-27] MEDS: IMDUR PO SCH (14:30)
--- NOTE | 2016-12-27 15:24 | Progress Note ---
Assessment and Plan (1) Recurrent Chest pain Current Visit: Yes Status: Acute Plan to address problem: CTA negative for PE She had stress test in 12/2016, which showed a dialated left ventricle, global left ventricular hypokinesis, and small fixed distal inferior wall perfusion defect of uncertain significance. She has hx of CAD, s/p PCI of RCA in 08/2016 with subsequent subacute thrombus of the proximal RCA stent and balloon angioplasty with resolution of thrombus on 11/28/2016. Cardio recommendations noted. (2) End stage renal disease Current Visit: Yes Status: Chronic Plan to address problem: HD today (4) Anemia in end-stage renal disease Current Visit: No Status: Acute Plan to address problem: No [place], Hgb> 11 (5) Hypertensive chronic kidney disease with stage 5 chronic kidney disease or end stage renal disease Current Visit: No Status: Acute Plan to address problem: BP improved. Continue home oral antihypertensives Pain control (6) Hyperkalemia 2/2 missed HD Current Visit: No Status: Acute Hyperkalemia resolved Subjective Date of service: 12/27/16 Interval history: No SOB/CP Objective - Vital Signs Vital signs: Vital Signs - 12hr 12/27/16 12/27/16 12/27/16 06:21 09:07 10:00 Temperature 99.2 F 98.9 F 98 F Pulse Rate 83 Pulse Rate [ 82 Apical] Pulse Rate [ 92 H Right] Respiratory 18 18 18 Rate Blood Pressure 131/53 Blood Pressure 164/74 171/75 [Right Arm] O2 Sat by Pulse 98 93 Oximetry 12/27/16 12/27/16 12/27/16 10:05 10:15 10:30 Temperature Pulse Rate 81 85 70 Pulse Rate [ Apical] Pulse Rate [ Right] Respiratory Rate Blood Pressure 133/88 146/95 151/72 Blood Pressure [Right Arm] O2 Sat by Pulse Oximetry 12/27/16 12/27/16 12/27/16 10:45 11:00 11:15 Temperature Pulse Rate 73 75 75 Pulse Rate [ Apical] Pulse Rate [ Right] Respiratory Rate Blood Pressure 149/74 154/73 159/74 Blood Pressure [Right Arm] O2 Sat by Pulse Oximetry 12/27/16 12/27/16 12/27/16 11:30 11:45 12:00 Temperature Pulse Rate 76 77 77 Pulse Rate [ Apical] Pulse Rate [ Right] Respiratory Rate Blood Pressure 150/74 166/72 169/68 Blood Pressure [Right Arm] O2 Sat by Pulse Oximetry 12/27/16 12/27/16 12/27/16 12:15 12:30 12:45 Temperature Pulse Rate 76 78 88 Pulse Rate [ Apical] Pulse Rate [ Right] Respiratory Rate Blood Pressure 168/76 166/83 159/83 Blood Pressure [Right Arm] O2 Sat by Pulse Oximetry 12/27/16 12/27/16 13:00 13:30 Temperature 98.2 F Pulse Rate 78 78 Pulse Rate [ Apical] Pulse Rate [ Right] Respiratory 18 Rate Blood Pressure 163/77 163/77 Blood Pressure [Right Arm] O2 Sat by Pulse Oximetry - General Appearance General appearance: well-developed, well-nourished, appears stated age EENT: PERRL, mucous membranes moist Neck: no JVD, no thyromegaly, no carotid bruit, supple Respiratory: Present: Clear to Ascultation Cardiology: regular, normal heart rate, S1S2, no murmurs Gastrointestinal: normoactive bowel sounds, no tenderness Integumentary: no rash, warm and dry Neurologic: no focal deficit, alert and oriented x3, reflexes 2+ and symmetric, gait normal, strength 5/5 Musculoskeletal: no deformities, no erythema, no cyanosis, no clubbing Psychiatric: mood/affect appropriate, cooperative - Lab 12/27/16 07:09 12/27/16 07:09 Most recent lab results Calcium 9.3 mg/dL (8.4-10.2) 12/27/16 07:09
[2016-12-27] MEDS: EFFIENT PO SCH (17:03)
[2016-12-28] MEDS: DILAUDID IV PRN ×2 (06:53→10:59)
[2016-12-28 08:03] VITALS: BP 161/73
[2016-12-28] MEDS: HALFPRIN EC PO SCH (10:58)
[2016-12-28] MEDS: SENSIPAR PO SCH (10:58)
[2016-12-28] MEDS: IMDUR PO SCH (10:58)
[2016-12-28] MEDS: RENVELA PO SCH (10:58)
[2016-12-28] MEDS: Renal Caps PO SCH (10:59)
[2016-12-28] MEDS: ZYLOPRIM PO SCH (10:59)
[2016-12-28] MEDS: ZESTRIL PO SCH (10:59)
[2016-12-28] MEDS: PROTONIX PO SCH (10:59)
[2016-12-28] MEDS: EFFIENT PO SCH (10:59)
[2016-12-28] MEDS: COREG PO SCH (10:59)
--- NOTE | 2016-12-28 11:16 | Discharge Summary ---
Providers - Providers Date of Admission: 12/25/16 14:24 Date of discharge: 12/28/16 Attending physician: MARK ANDERSON 12/26/16 Consult to Cardiac Rehabilitation [CONS] Routine Reason For Exam: Phase I 12/27/16 09:23 Consult to Physician [CONS] Routine Consulting Provider: ELLEN GAY Reason For Exam: recurrent CP Place consult to:: Joby MAYER Notified:: Romel RN Was contact made?: Yes If yes, spoke with:: Chandni Lazaro Time called:: 09:45 Primary care physician: VOCATIONAL NURSING INSTRUCTOR Hospitalization Condition: Stable Hospital course: Patient is a 66-year-old woman with day history of tobacco dependency, peripheral vascular disease, end-stage renal disease on hemodialysis, CHF EF 35- 40%, CAD, s/p PCI (PCI of RCA in 08/2016 with subsequent subacute thrombus of the proximal RCA stent and balloon angioplasty with resolution of thrombus on ), and hypertension who presents with chest pain shortness of breath from dialysis center. She had a CTA of the chest which showed no PE but positive for CHF. She was also found to have hyperkalemia and elevated troponin. She underwent hemodialysis yesterday and feels much better. -Acute on chronic HFrEF: continue to duiresis during dialysis, consulted to cardiology -End-stage renal disease on hemodialysis: Consulted nephrology -Hyperkalemia resolved. -Hypertension with heart disease: Continue to monitor consult cardiology -Chest pain and elevated troponin: Cardiology to evaluate Cardiology's plan: "Plan: Cont home ASA 81, statin, effient, BB, ACEI. Resume Imdur - pt is unsure whether or not she was taking this medication at home. Cont tele. No indication for any further cardiac testing at this time. Assessment and plan reviewed with pt at bedside." Disposition: DISCHARGED TO HOME OR SELFCARE Time spent for discharge: 32 minutes Core Measure Documentation - Palliative Care Palliative Care/ Comfort Measures: Not Applicable - Core Measures Any of the following diagnoses?: heart failure - VTE Discharge Requirements Deep Vein Thrombosis/Pulmonary Embolism Present on Admission: No Has pt received <5 days of overlap therapy or INR<2.0: No Anticoagulant overlap therapy prescribed at discharge: No Contraindication No Overlap Therapy order at DC: Not Indicated - Heart Failure Discharge Requirements JENNIFER/ARB for LVSD if EF <40%: Yes Beta nikolas at discharge: Yes Exam - Physical Exam Narrative exam: GEN: Thin frail NAD, AWAKE, ALERT, ORIENTATED 3 HEENT: NCAT, PERRL, EOMI, OP CLEAR NECK: SUPPLE, NO THYROMEGALY, NO JVD, NO LAD CVS: RRR, NORMAL S1S2 LUNGS/CHEST: Slight bibasilar crackles, NORMAL CHEST EXPANSION B, GOOD AIR ENTRY B ABD: SOFT NTND, GBS, NO REBOUND OR GUARDING EXT/SKIN: NO SIGNIFICANT EDEMA OR RASH MSK: FROM X 4 EXTREMITIES NEURO: CN 2-12 GROSSLY INTACT, NO new FOCAL DEFICITS PSY: CALM - Constitutional Vitals: Temp Pulse Resp BP Pulse Ox 98.4 F 80 20 161/73 96 12/28/16 08:02 12/28/16 08:02 12/28/16 08:02 12/28/16 08:02 12/28/16 08:02 Plan Activity: advance as tolerated Diet: renal Follow up with: PRIMARY CAREMD [Primary Care Provider] - 3-5 Days ELLEN GAY MD [Staff Physician] - 7 Days FARZANA LUGO MD [Staff Physician] - 7 Days Prescriptions: ISOSORBIDE MONOnitrate [Imdur ER] 30 mg PO QDAY #30 tablet Prasugrel [Effient] 10 mg PO QDAY #30 tablet
--- NOTE | 2016-12-28 11:38 | Progress Note ---
Assessment and Plan Assessment: Chest pain, atypical - ECG with NAF, currently resolved; recent stress test on with no evidence of ischemia. Elevated troponin - flat; currently nonspecific in setting of ESRD. CAD, s/p PCI (PCI of RCA in 08/2016 with subsequent subacute thrombus of the proximal RCA stent and balloon angioplasty with resolution of thrombus on 2016) ESRD, on HD I/CMP - EF 35-30% on echo 11/2016 HTN PVD Tobacco use Plan: Cont home ASA 81, statin, effient, BB, ACEI, and Imdur. No indication for any further cardiac testing at this time. Currently stable cardiac status. Pt may discharge home from cardiology standpoint. Recommend follow up in our office with Dr. Ford within 1-2 weeks of hospital discharge. Assessment and plan reviewed with pt at bedside. The patient has been seen in conjunction with Dr. Khadra Still who agrees with the assessment and plan of care. Subjective Date of service: 12/28/16 Principal diagnosis: chest pain Interval history: Pt resting in bed, denies any complaints. VSS. Objective Last Vital Signs Temp 98.4 F 12/28/16 08:02 Pulse 80 12/28/16 08:02 Resp 20 12/28/16 08:02 BP 161/73 12/28/16 08:02 Pulse Ox 96 12/28/16 08:02 - Physical Examination HEENT: Positive: PERRL, Normocephaly, Mucus Membranes Moist Neck: Positive: neck supple, trachea midline Cardiac: Positive: Reg Rate and Rhythm, S1/S2 Lungs: Positive: Normal Exam, clear to auscultation, Normal Breath Sounds Neuro: Positive: Grossly Intact, Cranial Nerve 2-12 Intact Abdomen: Positive: Unremarkable, Soft, Active Bowel Sounds Skin: Positive: Clear. Negative: Rash, Wound Musculoskeletal: No Fluid Collection, No Pain, Normal Range of Motion Extremities: Present: normal, upper extr. pulses, lower extr. pulses. Absent: edema - Imaging and Cardiology EKG: report reviewed (NSR non specific st t wave changes) - Telemetry EKG Rhythm: Sinus Rhythm
--- NOTE | 2016-12-28 12:14 | Query- Chest Pain ---
Dearosana Zhang Wise Date:____12/28/16 Behavioral Psychologist/CDS:___Scout Valdez Phone#:____[phone] Exercise your independent professional judgment when responding to query. Questions asked do not imply a particular answer is desired or expected. We greatly appreciate your clarification on this issue. Clinical Documentation States: 66 year old female was admitted on 12/25/16 The discharge summary states : Patient is a 66-year-old woman with day history of tobacco dependency, peripheral vascular disease, end-stage renal disease on hemodialysis, CHF EF 35-40%, CAD, s/p PCI (PCI of RCA in 08/2016 with subsequent subacute thrombus of the proximal RCA stent and balloon angioplasty with resolution of thrombus on 11/28/2016), and hypertension who presents with chest pain shortness of breath from dialysis center. She had a CTA of the chest which showed no PE but positive for CHF. She was also found to have hyperkalemia and elevated troponin. She underwent hemodialysis yesterday and feels much better. -Acute on chronic HFrEF: continue to duiresis during dialysis, consulted to cardiology -End-stage renal disease on hemodialysis: Consulted nephrology -Hyperkalemia resolved. -Hypertension with heart disease: Continue to monitor consult cardiology -Chest pain and elevated troponin: Cardiology to evaluate Please document the etiology of Chest Pain: [ ] Myocardial Infarction [ ] Pneumonia [ ] Mediastinitis [ ] Costochondritis [ ] Pulmonary Embolism [ ] Coronary Artery Disease [ ] GERD [x ] Other:_CHF, ESRD [ ] Comment/Explanation: Present on Admission: [x ] Yes (Y) [ ] Clinically undeterminable (W) [ ] No(N) Please document response in your Progress Notes and/or Discharge Summary and indicate if the condition was present on admission. HARINDER
--- NOTE | 2016-12-28 12:17 | Query- Heart Failure ---
Dearosana Zhang___Marcos Date:____12/28/16 Primer Supervisor/CDS:____Scout Valdez Phone#:____[phone] Exercise your independent professional judgment when responding to query. Questions asked do not imply a particular answer is desired or expected. We greatly appreciate your clarification on this issue. Clinical Documentation States: 66 year old female was admitted on 12/25/16 The discharge summary states: Hospital course: Patient is a 66-year-old woman with day history of tobacco dependency, peripheral vascular disease, end-stage renal disease on hemodialysis, CHF EF 35-40%, CAD, s/p PCI (PCI of RCA in 2015 with subsequent subacute thrombus of the proximal RCA stent and balloon angioplasty with resolution of thrombus on 11/28/2016), and hypertension who presents with chest pain shortness of breath from dialysis center. She had a CTA of the chest which showed no PE but positive for CHF. She was also found to have hyperkalemia and elevated troponin. She underwent hemodialysis yesterday and feels much better. -Acute on chronic HFrEF: continue to duiresis during dialysis, consulted to cardiology -End-stage renal disease on hemodialysis: Consulted nephrology -Hyperkalemia resolved. -Hypertension with heart disease: Continue to monitor consult cardiology -Chest pain and elevated troponin: Cardiology to evaluate If possible, Please Clarify if you mean: Acuity: [ ] Acute [x ] Acute on Chronic [ ] Chronic Type: [ ] Systolic Heart Failure [ ] Diastolic Heart Failure [ ] Combined Heart Failure [ ] Other:___HFrEF is the new term for systolic heart failure, please educate yourself Present on Admission: [x ] Yes (Y) [ ] Clinically undeterminable (W) [ ] No (N) Please also document response in your Progress Notes and/or Discharge Summary and indicate if the condition was present on admission. HARINDER
--- NOTE | 2016-12-28 13:30 | Progress Note ---
Assessment and Plan (1) Recurrent Chest pain Current Visit: Yes Status: Acute Plan to address problem: CTA negative for PE She had stress test in 12/2016, which showed a dialated left ventricle, global left ventricular hypokinesis, and small fixed distal inferior wall perfusion defect of uncertain significance. She has hx of CAD, s/p PCI of RCA in 08/2016 with subsequent subacute thrombus of the proximal RCA stent and balloon angioplasty with resolution of thrombus on 11/28/2016. Cardio recommendations noted. (2) End stage renal disease Current Visit: Yes Status: Chronic Plan to address problem: HD MWF schedule (4) Anemia in end-stage renal disease Current Visit: No Status: Acute Plan to address problem: No [place], Hgb> 11 (5) Hypertensive chronic kidney disease with stage 5 chronic kidney disease or end stage renal disease Current Visit: No Status: Acute Plan to address problem: BP improved. Continue home oral antihypertensives Pain control (6) Hyperkalemia 2/2 missed HD Current Visit: No Status: Acute Hyperkalemia resolved Subjective Date of service: 12/28/16 Principal diagnosis: chest pain Interval history: No SOB/CP Multiple bodyaches Objective - Vital Signs Vital signs: Vital Signs - 12hr 12/28/16 12/28/16 12/28/16 04:43 06:53 08:02 Temperature 98.2 F 98.4 F Pulse Rate Pulse Rate [ 79 Apical] Pulse Rate [ Left Radial] Pulse Rate [ 80 Right] Respiratory 20 20 20 Rate Blood Pressure 159/71 161/73 [Right Arm] O2 Sat by Pulse 97 96 Oximetry 12/28/16 10:00 Temperature Pulse Rate 70 Pulse Rate [ Apical] Pulse Rate [ 55 L Left Radial] Pulse Rate [ Right] Respiratory Rate Blood Pressure [Right Arm] O2 Sat by Pulse Oximetry - General Appearance General appearance: well-developed, well-nourished, appears stated age EENT: PERRL, mucous membranes moist Neck: no JVD, no thyromegaly, no carotid bruit, supple Respiratory: Present: Clear to Ascultation. Absent: Wheezes Cardiology: regular, normal heart rate, S1S2, no murmurs Gastrointestinal: normoactive bowel sounds, no tenderness Integumentary: no rash, warm and dry Neurologic: no focal deficit, alert and oriented x3, reflexes 2+ and symmetric, gait normal, strength 5/5 - Lab 12/27/16 07:09 12/27/16 07:09 Most recent lab results Calcium 9.3 mg/dL (8.4-10.2) 12/27/16 07:09
== END 2016-12-28 13:14 | disposition home or self-care (01) | DRG 291 ==
LOC: ED 10:46 → 4A 14:24
PROVIDERS: ADMIT Internal Medicine; ATTEND Internal Medicine
PROC: 5A1D60Z (ICD-10-PCS; principal; 2016-12-25)
DX: I13.2 Hypertensive heart and chronic kidney disease with heart failure and with stage 5 chronic kidney disease, or end stage renal disease (principal); I50.23 Acute on chronic systolic (congestive) heart failure; N18.6 End stage renal disease; E87.5 Hyperkalemia; E78.5 Hyperlipidemia, unspecified; M10.9 Gout, unspecified; K21.9 Gastro-esophageal reflux disease without esophagitis; E11.22 Type 2 diabetes mellitus with diabetic chronic kidney disease; M19.90 Unspecified osteoarthritis, unspecified site; F17.210 Nicotine dependence, cigarettes, uncomplicated; F10.10 Alcohol abuse, uncomplicated; D63.1 Anemia in chronic kidney disease; E11.51 Type 2 diabetes mellitus with diabetic peripheral angiopathy without gangrene; Z99.2 Dependence on renal dialysis; Z95.5 Presence of coronary angioplasty implant and graft; Z79.899 Other long term (current) drug therapy; Z86.73 Personal history of transient ischemic attack (TIA), and cerebral infarction without residual deficits; Z98.51 Tubal ligation status; Z79.82 Long term (current) use of aspirin
CPT/HCPCS: 36415; 71010; 71275; 80048; 80053; 82550; 82553; 83880; 84484; 85025; 85027; 85610; 93005; 93010; A9270-GY; J0360; J1170; J1644; J7030; Q9967

== ENCOUNTER 2017-01-12 11:09 | Emergency (ER) | payer MEDICARE ==
[2017-01-12] MEDS ORDERED: TYLENOL PO ONE (12:27)
[2017-01-12] MEDS ORDERED: MORPHINE IV ONE (12:27)
--- NOTE | 2017-01-12 12:27 | Emergency Department Report ---
ED General Adult HPI - General Chief complaint: Chest Pain Stated complaint: CHEST PAIN Time Seen by Provider: 01/12/17 12:15 Source: patient, RN notes reviewed, old records reviewed Mode of arrival: Ambulatory Limitations: No Limitations - History of Present Illness Initial comments: This is a 66-year-old female. I have evaluated her in the past. Nephrology: Dr Todd Cardiology: Dr Mclean Past medical history: End-stage renal disease on dialysis Sunday, Sunday, Sunday, was last dialyzed on Sunday. Patient has a past medical history of chronic elevated troponin, ischemic cardiomyopathy, hypertension, peripheral vascular disease. Patient is status post PCI of the RCA and 2016 with subsequent subacute thrombus of the proximal RCA stents and balloon angioplasty with resolution of thrombus on 11/28/2016. Patient recently admitted to the hospital multiple times for chest pain, seen multiple times by cardiology, patient recently admitted earlier this month for chest pain, had a nuclear medicine study which demonstrated a small mild fixed distal inferior wall perfusion defect of uncertain significance. Patient admitted to the hospital multiple times recently for chest pain, recently had a negative CT angiogram of the chest, recently admitted and cleared by cardiology. Presents to the ER today complaining of chest pain. The chest pain started at 2 :00 in the morning. It increases with palpation. She reports shortness of breath. Radiates to the back. There is no nausea. There is no vomiting. There is no diaphoresis. There is no abdominal pain. There is no hematemesis. There is no bright red blood per rectum. Her symptoms have been constant since 2:00 in the morning -: Gradual Location: chest Radiation: back Consistency: constant Improves with: none Worsens with: none Associated Symptoms: chest pain. denies: confusion - Related Data Home Medications Medication Instructions Recorded Confirmed Last Taken Allopurinol [Zyloprim] 100 mg PO DAILY 08/03/14 01/09/17 1 Day Ago Cinacalcet [Sensipar] 60 mg PO QDAY 09/13/16 01/09/17 1 Day Ago Docusate Sodium [Colace CAP] 100 mg PO BID PRN 09/13/16 01/09/17 1 Day Ago Previous Rx's Medication Instructions Recorded Last Taken Type Folic Acid/Vit B Comp W-C [Renal 1 cap PO QDAY #30 capsule 12/28/16 1 Day Ago Rx Caps] Prasugrel [Effient] 10 mg PO QDAY #30 tablet 12/28/16 1 Day Ago Rx Sevelamer Carbonate [Renvela] 800 mg PO TIDWM #30 12/28/16 1 Day Ago Rx Aspirin EC [Aspirin Enteric Coated 81 mg PO QDAY #30 tablet.dr 01/10/17 Unknown Rx TAB] AtorvaSTATin [Lipitor] 40 mg PO QHS #30 tablet 01/10/17 Unknown Rx Carvedilol [Coreg] 12.5 mg PO BID #60 tablet 01/10/17 Unknown Rx ISOSORBIDE MONOnitrate [Imdur ER] 30 mg PO QDAY #30 tablet 01/10/17 Unknown Rx Lisinopril [Zestril TAB] 20 mg PO QDAY #30 tablet 01/10/17 Unknown Rx Pantoprazole [Protonix TAB] 40 mg PO QDAY #30 tablet 01/10/17 Unknown Rx Allergies Allergy/AdvReac Type Severity Reaction Status Date / Time No Known Allergies Allergy Verified 12/09/13 08:59 ED Review of Systems ROS: Stated complaint: CHEST PAIN Other details as noted in HPI ED Past Medical Hx - Past Medical History Previous Medical History?: Yes Hx Hypertension: Yes Hx CVA: Yes (x 2) Hx Congestive Heart Failure: Yes Hx Diabetes: Yes Hx GERD: Yes Hx Liver Disease: Yes (LESION) Hx Renal Disease: Yes (ESRD/dialysis M, W, F) Hx Arthritis: Yes Hx COPD: No Additional medical history: enlarged heart, gout - Surgical History Past Surgical History?: Yes Hx Coronary Stent: Yes Hx Appendectomy: Yes Additional Surgical History: tubal ligation, vas cath. LUE fistula - Social History Smoking Status: Current Every Day Smoker Substance Use Type: None - Medications Home Medications: Home Medications Medication Instructions Recorded Confirmed Last Taken Type Allopurinol [Zyloprim] 100 mg PO DAILY 08/03/14 01/09/17 1 Day Ago History Cinacalcet [Sensipar] 60 mg PO QDAY 09/13/16 01/09/17 1 Day Ago History Docusate Sodium [Colace CAP] 100 mg PO BID PRN 09/13/16 01/09/17 1 Day Ago History Folic Acid/Vit B Comp W-C [Renal 1 cap PO QDAY #30 capsule 12/28/16 01/09/17 1 Day Ago Rx Caps] Prasugrel [Effient] 10 mg PO QDAY #30 tablet 12/28/16 01/09/17 1 Day Ago Rx Sevelamer Carbonate [Renvela] 800 mg PO TIDWM #30 12/28/16 01/09/17 1 Day Ago Rx Aspirin EC [Aspirin Enteric Coated 81 mg PO QDAY #30 tablet. 01/10/17 Unknown Rx TAB] AtorvaSTATin [Lipitor] 40 mg PO QHS #30 tablet 01/10/17 Unknown Rx Carvedilol [Coreg] 12.5 mg PO BID #60 tablet 01/10/17 Unknown Rx ISOSORBIDE MONOnitrate [Imdur ER] 30 mg PO QDAY #30 tablet 01/10/17 Unknown Rx Lisinopril [Zestril TAB] 20 mg PO QDAY #30 tablet 01/10/17 Unknown Rx Pantoprazole [Protonix TAB] 40 mg PO QDAY #30 tablet 01/10/17 Unknown Rx ED Physical Exam - General Limitations: No Limitations General appearance: alert, in no apparent distress - Head Head exam: Present: atraumatic, normocephalic - Eye Eye exam: Present: normal appearance, EOMI. Absent: nystagmus - ENT ENT exam: Present: normal exam, normal orophraynx, mucous membranes moist, normal external ear exam - Neck Neck exam: Present: normal inspection, full ROM. Absent: tenderness, meningismus - Respiratory Respiratory exam: Present: normal lung sounds bilaterally, chest wall tenderness. Absent: respiratory distress, wheezes, rales, rhonchi, stridor - Cardiovascular Cardiovascular Exam: Present: normal rhythm, bradycardia, normal heart sounds. Absent: systolic murmur, diastolic murmur, rubs, gallop - GI/Abdominal GI/Abdominal exam: Present: soft, normal bowel sounds. Absent: distended, tenderness, guarding, rebound, rigid, pulsatile mass - Extremities Exam Extremities exam: Present: normal inspection, full ROM, normal capillary refill , other (there is a left upper extremity AV fistula with an appropriate thrill.) . Absent: tenderness, pedal edema, joint swelling, calf tenderness - Back Exam Back exam: Present: normal inspection, full ROM. Absent: tenderness, CVA tenderness (R), CVA tenderness (L), muscle spasm, paraspinal tenderness, vertebral tenderness - Neurological Exam Neurological exam: Present: alert, oriented X3, normal gait, other (Extraocular movements intact. Tongue midline. No facial droop. Facial sensation intact to light touch in the V1, V2, V3 distribution bilaterally. 5 and 5 strength in 4 extremities.. Sensation is intact to light touch in 4 extremities.). Absent : motor sensory deficit - Psychiatric Psychiatric exam: Present: normal affect, normal mood - Skin Skin exam: Present: warm, dry, intact, normal color. Absent: rash ED Course Vital Signs 01/12/17 01/12/17 01/12/17 11:27 12:13 12:15 Temperature 98.7 F Pulse Rate 58 L 69 73 Respiratory 16 24 24 Rate Blood Pressure 99/54 113/46 O2 Sat by Pulse 100 92 96 Oximetry 01/12/17 01/12/17 01/12/17 12:30 12:45 12:50 Temperature Pulse Rate 70 Respiratory 21 17 18 Rate Blood Pressure 107/50 107/50 O2 Sat by Pulse 98 97 Oximetry 01/12/17 01/12/17 01/12/17 12:52 13:01 13:15 Temperature Pulse Rate 72 85 Respiratory 18 19 29 H Rate Blood Pressure 107/50 107/50 O2 Sat by Pulse 97 99 Oximetry 01/12/17 01/12/17 01/12/17 13:31 13:45 14:01 Temperature Pulse Rate 71 70 79 Respiratory 17 19 13 Rate Blood Pressure 107/50 107/50 107/50 O2 Sat by Pulse 94 95 94 Oximetry 01/12/17 14:15 Temperature Pulse Rate 76 Respiratory 21 Rate Blood Pressure 107/50 O2 Sat by Pulse 94 Oximetry - Reevaluation(s) Reevaluation #1: 01/12/17 12:53 Differential diagnosis: Acute coronary syndrome, GERD, gastritis, costochondritis, pneumonia, chronic chest pain, chronic renal insufficiency, chronic troponin leak secondary to renal insufficiency Assessment and plan: 66-year-old female with multiple visits to this hospital for chronic chest pain. Her EKG today is essentially unchanged from prior EKGs. The patient was seen and personally interviewed by the ethanol quality leader who performed catheterization, Dr. Mclean, who did not feel the patient would benefit from repeat acute coronary syndrome risk stratification, especially as she was recently cathed, and recently had essentially unchanged nuclear stress test. I highly doubt pulmonary embolus, she is saturating well, and she was recently ruled out for pulmonary embolus by myself at this facility. She had multiple EKGs in the department which were reviewed by myself and the consulting ethanol quality leader, and it was his opinion that the EKGs were essentially unchanged,and he indicated that they did not merit repeat admission to the hospital. Cardiology recommends 2 troponins, with the caveat that as long as they are at her baseline it would be acceptable to discharge the patient from ACS perspective. Patient does have elevated troponin at this time, and it appears to be her baseline when compared to her prior laboratory studies, this is most likely secondary to renal insufficiency. Patient's pain will be treated symptomatically. We will discuss with her film laboratory technician to arrange outpatient dialysis. Reevaluation #2: 01/12/17 13:04 case d/w Dr Todd, her film laboratory technician he indicates patient can follow up for dialysis later on today, or tomorrow. He reports patient should call the following numbers; [phone] to arrange dialysis. Reevaluation #3: 01/12/17 15:54 patient reassess. Resting comfortably. Troponin is down trending. Cardiology recommendations are reviewed and appreciated. In light of the patient's recent multiple admissions for the same complaint, ethanol quality leader augmentation, and her objective recent testing, the patient will be discharged at this time. ED Medical Decision Making - Lab Data Result diagrams: 01/12/17 11:45 01/12/17 11:45 Vital Signs 01/12/17 01/12/17 01/12/17 11:27 12:13 12:15 Temperature 98.7 F Pulse Rate 58 L 69 73 Respiratory 16 24 24 Rate Blood Pressure 99/54 113/46 O2 Sat by Pulse 100 92 96 Oximetry 01/12/17 01/12/17 01/12/17 12:30 12:50 12:52 Temperature Pulse Rate Respiratory 21 18 18 Rate Blood Pressure 107/50 O2 Sat by Pulse 98 Oximetry Labs 01/12/17 01/12/17 11:45 11:45 WBC 5.0 RBC 3.84 Hgb 11.4 Hct 35.6 MCV 93 MCH 30 MCHC 32 RDW 18.4 H Plt Count 243 Lymph % (Auto) 31.3 [place] % (Auto) 11.7 H Eos % (Auto) 1.3 Baso % (Auto) 0.4 Lymph # 1.6 [place] # 0.6 Eos # 0.1 Baso # 0.0 Seg Neutrophils % 55.3 Seg Neutrophils # 2.8 Sodium 138 Potassium 4.8 Chloride 93.7 L Carbon Dioxide 28 Anion Gap 21 BUN 45 H Creatinine 7.9 H Estimated GFR 6 BUN/Creatinine Ratio 5.69 Glucose 104 H Calcium 9.8 Troponin T 0.127 H* - EKG Data 01/12/17 12:56 EKG #1: Normal sinus, 77 bpm, QTC 484 ms, left ventricular hypertrophy, biphasic T waves V5 and V6, not morphologically consistent with STEMI. Appears unchanged from prior EKG from 01/08/2017. EKG #2 demonstrates normal sinus, 69 bpm, borderline left axis deviation, T- wave inversions in 1 and aVL, left ventricular hypertrophy, not morphologically consistent with STEMI. Critical care attestation.: If time is entered above; I have spent that time in minutes in the direct care of this critically ill patient, excluding procedure time. ED Disposition Clinical Impression: Chest pain Qualifiers: Chest pain type: unspecified Qualified Code(s): R07.9 - Chest pain, unspecified Disposition: DISCHARGED TO HOME OR SELFCARE Is pt being admited?: No Does the pt Need Aspirin: No Condition: Stable Instructions: Chest Pain (ED) Additional Instructions: Continue current outpatient medications. Contact the following phone number to arrange for dialysis this evening, or tomorrow morning. Follow-up with the primary care doctor, film laboratory technician ethanol quality leader within the next week. Of course, if you developed new, worsening or different symptoms, intractable nausea or vomiting, fevers or chills, please feel free to return to the ER right away. [phone] to arrange dialysis. Referrals: PRIMARY MD MELCHOR [Primary Care Provider] - 3-5 Days FARZANA TODD MD [Staff Physician] - 3-5 Days CORNELIA MCLEAN MD [Staff Physician] - 3-5 Days
[2017-01-12 12:37] LABS: BUN/Creatinine Ratio 5.69; Calcium 9.8 mg/dL (8.4-10.2); Chloride 93.7 mmol/L (98-107); Potassium 4.8 mmol/L (3.6-5.0)
[2017-01-12] MEDS ORDERED: MORPHINE ONE (12:45)
[2017-01-12 12:47] VITALS: BP 107/50
[2017-01-12 12:49] LABS: Basophils % (Auto) 0.4 % (0.0-1.8); Eosinophils % (Auto) 1.3 % (0.0-4.3); Hematocrit 35.6 % (30.3-42.9); Hemoglobin 11.4 gm/dl (10.1-14.3); Mean Corpuscular HGB Conc 32 % (30-34); Mean Corpuscular Hemoglobin 30 pg (28-32); Mean Corpuscular Volume 93 fl (79-97); Platelet Count 243 K/mm3 (140-440); Red Blood Count 3.84 M/mm3 (3.65-5.03); Red Cell Distribution Width 18.4 % (13.2-15.2)
--- NOTE | 2017-01-12 12:56 | Consultation ---
History of Present Illness Consult date: 01/12/17 Requesting physician: CON JAMES Consult reason: chest pain History of present illness: The patient is a 66 YO female with a past medical history significant for CAD, s /p PCI (PCI of RCA in 08/2016 with subsequent subacute thrombus of the proximal RCA stent and balloon angioplasty with resolution of thrombus on 11/28/2016), ESRD, on HD, HTN, PVD, and tobacco use. She is followed in our office by Dr. Ford. She presented with c/o chest pain since yesterday evening. She describes her pain as a nonexertional, midsternal pressure which radiates bilaterally into her shoulders. She denies any precipitating factors, aggravating, or alleviating factors. She denies any SOB, palpitations, diaphoresis, n/v, dizziness, or syncope. Past History Past Medical History: CAD, dialysis, GERD, hypertension, PVD Social history: smoking. denies: alcohol abuse, prescription drug abuse Medications and Allergies Allergies Allergy/AdvReac Type Severity Reaction Status Date / Time No Known Allergies Allergy Verified 12/09/13 08:59 Home Medications Medication Instructions Recorded Confirmed Last Taken Type Allopurinol [Zyloprim] 100 mg PO DAILY 08/03/14 01/09/17 1 Day Ago History Cinacalcet [Sensipar] 60 mg PO QDAY 09/13/16 01/09/17 1 Day Ago History Docusate Sodium [Colace CAP] 100 mg PO BID PRN 09/13/16 01/09/17 1 Day Ago History Folic Acid/Vit B Comp W-C [Renal 1 cap PO QDAY #30 capsule 12/28/16 01/09/17 1 Day Ago Rx Caps] Prasugrel [Effient] 10 mg PO QDAY #30 tablet 12/28/16 01/09/17 1 Day Ago Rx Sevelamer Carbonate [Renvela] 800 mg PO TIDWM #30 12/28/16 01/09/17 1 Day Ago Rx Aspirin EC [Aspirin Enteric Coated 81 mg PO QDAY #30 tablet. 01/10/17 Unknown Rx TAB] AtorvaSTATin [Lipitor] 40 mg PO QHS #30 tablet 01/10/17 Unknown Rx Carvedilol [Coreg] 12.5 mg PO BID #60 tablet 01/10/17 Unknown Rx ISOSORBIDE MONOnitrate [Imdur ER] 30 mg PO QDAY #30 tablet 01/10/17 Unknown Rx Lisinopril [Zestril TAB] 20 mg PO QDAY #30 tablet 01/10/17 Unknown Rx Pantoprazole [Protonix TAB] 40 mg PO QDAY #30 tablet 01/10/17 Unknown Rx Review of Systems Constitutional: no weight loss, no weight gain, no fever, no chills, no sweats Ears, nose, mouth and throat: no ear pain, no nose pain, no nasal congestion, no nasal discharge, no sinus pressure, no sinus pain Cardiovascular: chest pain, no orthopnea, no palpitations, no rapid/irregular heart beat, no edema, no syncope, no lightheadedness, no shortness of breath, no dyspnea on exertion, no leg edema Respiratory: no cough, no shortness of breath, no dyspnea on exertion, no congestion, no wheezing, no pain Gastrointestinal: no abdominal pain, no nausea, no vomiting, no constipation, no change in bowel habits Genitourinary Female: no pelvic pain, no flank pain, no dysuria, no urinary frequency, no urgency Musculoskeletal: no neck stiffness, no neck pain, no shooting arm pain, no arm numbness/tingling, no low back pain, no shooting leg pain, no leg numbness/ tingling, no redness of joints Integumentary: no rash, no pruritis, no redness, no sores, no wounds Neurological: no paralysis, no weakness, no parathesias, no numbness, no tingling, no seizures, no syncope Endocrine: no cold intolerance, no heat intolerance Hematologic/Lymphatic: no easy bruising, no easy bleeding, no lymphadenopathy Allergic/Immunologic: no urticaria, no wheezing, no persistent infections Physical Examination Vital Signs Temp Pulse Resp BP Pulse Ox 98.7 F 58 L 16 99/54 100 01/12/17 11:27 01/12/17 11:27 01/12/17 11:27 01/12/17 11:27 01/12/17 11:27 General appearance: no acute distress HEENT: Positive: PERRL, Normocephaly, Mucus Membranes Moist Neck: Positive: neck supple, trachea midline Cardiac: Positive: Reg Rate and Rhythm, S1/S2 Lungs: Positive: Normal Exam, clear to auscultation, Normal Breath Sounds, No Wheeze, Rales, Rhonchi Neuro: Positive: Grossly Intact, Cranial Nerve 2-12 Intact Abdomen: Positive: Unremarkable, Soft, Active Bowel Sounds. Negative: Tender Skin: Positive: Clear. Negative: Rash, Wound Musculoskeletal: No Fluid Collection, No Pain, Normal Range of Motion Extremities: Present: normal, upper extr. pulses, lower extr. pulses. Absent: edema Results 01/12/17 11:45 01/12/17 11:45 CBC 01/12/17 Range/Units 11:45 WBC 5.0 (4.5-11.0) K/mm3 RBC 3.84 (3.65-5.03) M/mm3 Hgb 11.4 (10.1-14.3) gm/dl Hct 35.6 (30.3-42.9) % Plt Count 243 (140-440) K/mm3 Lymph # 1.6 (1.2-5.4) K/mm3 [place] # 0.6 (0.0-0.8) K/mm3 Eos # 0.1 (0.0-0.4) K/mm3 Baso # 0.0 (0.0-0.1) K/mm3 Comprehensive Metabolic Panel 01/12/17 Range/Units 11:45 Sodium 138 (137-145) mmol/L Potassium 4.8 (3.6-5.0) mmol/L Chloride 93.7 L (98-107) mmol/L Carbon Dioxide 28 (22-30) mmol/L BUN 45 H (7-17) mg/dL Creatinine 7.9 H (0.7-1.2) mg/dL Glucose 104 H (65-100) mg/dL Calcium 9.8 (8.4-10.2) mg/dL - Imaging and Cardiology Echo: report reviewed Cardiac cath: report reviewed EKG: report reviewed, image reviewed EKG interpretations - Telemetry EKG Rhythm: Sinus Rhythm - EKG Sinus rhythms and dysrhythmias: sinus rhythm Repolarization changes or abnormalities: nonspecific abnormality, ST segment, and/or T wave Assessment and Plan Assessment: Chest pain, atypical - recurrent; ECG with NAF; recent stress test on 12/21/2016 with no evidence of ischemia. Elevated troponin - x 1 set; unchanged from prior admissions; currently nonspecific in setting of ESRD. CAD, s/p PCI (PCI of RCA in 08/2016 with subsequent subacute thrombus of the proximal RCA stent and balloon angioplasty with resolution of thrombus on 2016) ESRD, on HD I/CMP - EF 35-30% on echo 11/2016 HTN PVD Tobacco use Plan: Cont home medication regimen. Cont to trend cardiac enzymes x 1 more set. Recommend that if second set of troponins is flat, pt may discharge home from cardiology standpoint. If second set of troponins is trending upwards, recommend admitting per hospitalists and will consider [facility] on Sunday AM. Assessment and plan reviewed with pt at bedside. The patient has been seen in conjunction with Dr. Newton who agrees with the assessment and plan of care.
[2017-01-12 13:21] LABS: INR 1.09 (0.87-1.13)
--- NOTE | 2017-01-12 13:33 | XRay Report ---
Portable chest: Chest pain. There may be slight enlargement of the heart. There is no vascular congestion in the lungs are clear. No significant changes when compared to January 08, 2017. Suspicion of mild cardiac enlargement. No acute finding.
--- NOTE | 2017-01-12 15:18 | Admit Criteria Form ---
Admission Criteria Documentation: CHEST PAIN Clinical Indications for Admission to Inpatient Care (Place 'X' for any and all applicable criteria): Admission is indicated for chest pain and ANY ONE of the following(1)(2)(3)(4)(5 ): [ ]I. Angina with acute coronary syndrome (Also use Myocardial Infarction or Angina guideline) [ ]II. Hemodynamic instability [ ]III. Angina needing acute intervention as indicated by ALL of the following( 11)(12): [ ]a) Unstable angina is present as indicated by angina that is ANY ONE of the following: [ ]i) New onset [ ]ii) Nocturnal [ ]iii) Prolonged at rest [ ]iv) Progressive [ ]b) Angina warrants acute intervention as indicated by ANY ONE of the following: [ ]i) Recurrent angina (e.g, not responding as previously to treatment) [ ]ii) Angina at rest or with low-level activities despite initial medical therapy [ ]iii) New or presumably new ST-segment depression on ECG [ ]iv) Signs or symptoms of heart failure (eg, dyspnea, pulmonary edema) [ ]v) New or worsening mitral regurgitation [ ]vi) Hemodynamic instability [ ]vii) Dangerous arrhythmia (eg, sustained ventricular tachycardia) [ ]viii) History of percutaneous coronary intervention within 6 months [ ]ix) History of coronary artery bypass graft surgery [ ]x) MONE risk score of 2 or greater[A] [ ]xi) History of Diabetes(14) [ ]xii) High-risk cardiac ischemia findings on noninvasive testing (e.g, echocardiogram, treadmill testing, nuclear scan) [ ]xiii) Chronic renal insufficiency (ie, estimated GFR less than 60 mL/min/1.732m) [ ]xiv) Left ventricular ejection fraction less than 40% [ ]IV. Evidence of [place] (eg, cardiac biomarkers positive, ST-segment elevation on ECG) also use Myocardial Infarction Criteria Form. [ ]V. Pulmonary edema [ ]. Respiratory distress [ ]VII. Chest pain indicative of serious diagnosis other than coronary artery disease (eg, aortic dissection) [X]VIII. Contraindications and/or Inappropriate clinical situations for Observational Care in patients with Chest Pain, when ANY ONE of the following is required: [ ]a) Patient with risk factor for pulmonary embolism, acute coronary syndrome and myocardial infarction (18) [ ]b) Patient with Pulmonary embolism require an average LOS of 4.3 days, therefore emergency department observation management is inappropriate 18,23 [ ]c) Painful condition/s in the elderly, have the highest rate of recidivism after emergency department observation management (10.8%) 20,21,22 [X]d) Elevated cardiac biomarker requires intensive and exhaustive care (19) [ ]IX. General contraindications and/or Inappropriate clinical situations for Observational Care in patients with Chest Pain, when ANY ONE of the following is required: [ ]a) Prediction of prolongation of LOS based on ANY ONE of the following may be considered as a contraindication for observational care 2, 3, 4, 5, 6, 7, 8, 9, 10, 11 [ ]i) Age > 65 yrs. [ ]ii) Patient arriving by ambulance [ ]iii) Patient with high acuity [ ]iv) Patient requiring vital sign monitoring [ ]v) Patient on IV medication [ ]b) Systolic blood pressures 180mmHg 3,12 [ ]c) Patient with altered mental status including delirium and other alteration of consciousness, (3) [ ]d) Patient whose discharge disposition will be to a snf home or rehabilitation home should not be managed in Emergency Department Observation Unit. CMS rule requires 3 days hospital stay before such placement. 3,13 [ ]e) Patient with failure to thrive due to broad array of etiologies 3,16,17 [ ]f) Inability to ambulate 3,14 Extended stay beyond goal length of stay may be needed for (1)(28): [ ]a) Specific condition diagnosed after evaluation (eg, pulmonary embolism, aortic dissection) [ ]b) Unstable angina [ ]c) Continued suspicion of acute coronary syndrome with inability to complete needed cardiac evaluation (eg, patient clinically unable to undergo stress testing) [ ]d) Myocardial infarction (Contents from ANGINA and CHEST PAIN clinical indications for admission to inpatient care have been integrated in this form) The original [employer] content created by [employer] has been revised. The portions of the content which have been revised are identified through the use of italic text or in bold, and [employer] has neither reviewed nor approved the modified material. All other unmodified content is copyright [employer]. Please see references footnoted in the original [employer] edition 2016
== END 2017-01-12 16:37 | disposition home or self-care (01) ==
LOC: ED 11:09
DX: R07.9 Chest pain, unspecified (principal); I50.9 Heart failure, unspecified; K21.9 Gastro-esophageal reflux disease without esophagitis; E11.22 Type 2 diabetes mellitus with diabetic chronic kidney disease; I12.0 Hypertensive chronic kidney disease with stage 5 chronic kidney disease or end stage renal disease; N18.6 End stage renal disease; Z99.2 Dependence on renal dialysis; F17.200 Nicotine dependence, unspecified, uncomplicated
CPT/HCPCS: 36415; 71010; 80048; 84484; 85025; 85610; 93005; 93010; 96374; 99285; J2270

== ENCOUNTER 2017-01-29 12:42 | Emergency (ER) | payer MEDICARE ==
[2017-01-29] MEDS ORDERED: ZOFRAN IV ONE (13:24)
[2017-01-29] MEDS ORDERED: NITROSTAT SL ONE (13:24)
[2017-01-29] MEDS ORDERED: MORPHINE IV ONE ×2 (13:24→15:45)
--- NOTE | 2017-01-29 13:32 | Emergency Department Report ---
ED Chest Pain HPI - General Chief Complaint: Chest Pain Stated Complaint: CHEST PAIN Time Seen by Provider: 01/29/17 13:05 Source: patient, EMS Mode of arrival: Stretcher Limitations: No Limitations - History of Present Illness MD Complaint: chest pain -: Gradual Onset: during rest Pain Location: substernal Pain Radiation: none Severity: mild Severity scale (0 -10): 2 Quality: tightness, aching Consistency: constant Improves With: nothing Worsens With: nothing Other Symptoms: denies: cough, fever, syncope, rash, acid taste in mouth Treatments Prior to Arrival: aspirin - Related Data On Oral Contraceptives: No Home Medications Medication Instructions Recorded Confirmed Last Taken Allopurinol [Zyloprim] 100 mg PO DAILY 08/03/14 01/09/17 1 Day Ago Cinacalcet [Sensipar] 60 mg PO QDAY 09/13/16 01/09/17 1 Day Ago Docusate Sodium [Colace CAP] 100 mg PO BID PRN 09/13/16 01/09/17 1 Day Ago Previous Rx's Medication Instructions Recorded Last Taken Type Folic Acid/Vit B Comp W-C [Renal 1 cap PO QDAY #30 capsule 12/28/16 1 Day Ago Rx Caps] Prasugrel [Effient] 10 mg PO QDAY #30 tablet 12/28/16 1 Day Ago Rx Sevelamer Carbonate [Renvela] 800 mg PO TIDWM #30 12/28/16 1 Day Ago Rx Aspirin EC [Aspirin Enteric Coated 81 mg PO QDAY #30 tablet. 01/10/17 Unknown Rx TAB] AtorvaSTATin [Lipitor] 40 mg PO QHS #30 tablet 01/10/17 Unknown Rx Carvedilol [Coreg] 12.5 mg PO BID #60 tablet 01/10/17 Unknown Rx ISOSORBIDE MONOnitrate [Imdur ER] 30 mg PO QDAY #30 tablet 01/10/17 Unknown Rx Lisinopril [Zestril TAB] 20 mg PO QDAY #30 tablet 01/10/17 Unknown Rx Pantoprazole [Protonix TAB] 40 mg PO QDAY #30 tablet 01/10/17 Unknown Rx Allergies Allergy/AdvReac Type Severity Reaction Status Date / Time No Known Allergies Allergy Verified 12/09/13 08:59 MONE score - Mone Score Age > 65: (1) Yes Aspirin use within the Past 7 Days: (1) Yes 3 or more CAD Risk Factors: (1) Yes 2 or more Angina events in past 24 hrs: (0) No Known CAD with more than 50% Stenosis: (1) Yes Elevated Cardiac Markers: (0) No ST Deviation Greater than 0.5mm: (0) No MONE Score: 4 ED Review of Systems ROS: Stated complaint: CHEST PAIN Other details as noted in HPI Constitutional: denies: chills, fever Eyes: denies: eye pain, eye discharge, vision change ENT: denies: ear pain, throat pain Respiratory: denies: cough, shortness of breath, wheezing Cardiovascular: chest pain. denies: palpitations Endocrine: no symptoms reported Gastrointestinal: denies: abdominal pain, nausea, diarrhea Genitourinary: denies: urgency, dysuria, discharge Musculoskeletal: denies: back pain, joint swelling, arthralgia Skin: denies: rash, lesions Neurological: denies: headache, weakness, paresthesias Psychiatric: denies: anxiety, depression Hematological/Lymphatic: denies: easy bleeding, easy bruising ED Past Medical Hx - Past Medical History Previous Medical History?: Yes Hx Hypertension: Yes Hx CVA: Yes (x 2) Hx Congestive Heart Failure: Yes Hx Diabetes: Yes Hx GERD: Yes Hx Liver Disease: Yes (LESION) Hx Renal Disease: Yes (ESRD/dialysis M, W, F) Hx Arthritis: Yes Hx COPD: No Additional medical history: enlarged heart, gout - Surgical History Past Surgical History?: Yes Hx Coronary Stent: Yes Hx Appendectomy: Yes Additional Surgical History: tubal ligation, vas cath. LUE fistula - Social History Smoking Status: Current Some Day Smoker Substance Use Type: None - Medications Home Medications: Home Medications Medication Instructions Recorded Confirmed Last Taken Type Allopurinol [Zyloprim] 100 mg PO DAILY 08/03/14 01/09/17 1 Day Ago History Cinacalcet [Sensipar] 60 mg PO QDAY 09/13/16 01/09/17 1 Day Ago History Docusate Sodium [Colace CAP] 100 mg PO BID PRN 09/13/16 01/09/17 1 Day Ago History Folic Acid/Vit B Comp W-C [Renal 1 cap PO QDAY #30 capsule 12/28/16 01/09/17 1 Day Ago Rx Caps] Prasugrel [Effient] 10 mg PO QDAY #30 tablet 12/28/16 01/09/17 1 Day Ago Rx Sevelamer Carbonate [Renvela] 800 mg PO TIDWM #30 12/28/16 01/09/17 1 Day Ago Rx Aspirin EC [Aspirin Enteric Coated 81 mg PO QDAY #30 tablet.dr 01/10/17 Unknown Rx TAB] AtorvaSTATin [Lipitor] 40 mg PO QHS #30 tablet 01/10/17 Unknown Rx Carvedilol [Coreg] 12.5 mg PO BID #60 tablet 01/10/17 Unknown Rx ISOSORBIDE MONOnitrate [Imdur ER] 30 mg PO QDAY #30 tablet 01/10/17 Unknown Rx Lisinopril [Zestril TAB] 20 mg PO QDAY #30 tablet 01/10/17 Unknown Rx Pantoprazole [Protonix TAB] 40 mg PO QDAY #30 tablet 01/10/17 Unknown Rx ED Physical Exam - General Limitations: No Limitations General appearance: alert, in no apparent distress - Head Head exam: Present: atraumatic, normocephalic - Eye Eye exam: Present: normal appearance - ENT ENT exam: Present: mucous membranes moist - Neck Neck exam: Present: normal inspection - Respiratory Respiratory exam: Present: normal lung sounds bilaterally. Absent: respiratory distress - Cardiovascular Cardiovascular Exam: Present: regular rate, normal rhythm. Absent: systolic murmur, diastolic murmur, rubs, gallop - GI/Abdominal GI/Abdominal exam: Present: soft, normal bowel sounds - Extremities Exam Extremities exam: Present: normal inspection - Back Exam Back exam: Present: normal inspection - Neurological Exam Neurological exam: Present: alert, oriented X3 - Psychiatric Psychiatric exam: Present: normal affect, normal mood - Skin Skin exam: Present: warm, dry, intact, normal color. Absent: rash ED Course Vital Signs 01/29/17 12:53 Temperature 98.4 F Pulse Rate 81 Respiratory 18 Rate Blood Pressure 156/60 O2 Sat by Pulse 98 Oximetry ED Medical Decision Making - Lab Data Result diagrams: 01/29/17 13:31 01/29/17 13:31 - EKG Data -: EKG Interpreted by Ga Rate: normal - EKG Data When compared to previous EKG there are: no significant change Interpretation: no acute changes, unchanged when compared t - Radiology Data Radiology results: report reviewed, image reviewed - Medical Decision Making Patient with resolved pain after morphine, ekg unchanged and troponin slighyl elevated but lower than prior ER visits, consulted cardiology and they agree with plan for discharge and follow up as needed Critical care attestation.: If time is entered above; I have spent that time in minutes in the direct care of this critically ill patient, excluding procedure time. ED Disposition Clinical Impression: Chest pain Qualifiers: Chest pain type: unspecified Qualified Code(s): R07.9 - Chest pain, unspecified Disposition: DISCHARGED TO HOME OR SELFCARE Is pt being admited?: No Does the pt Need Aspirin: No Condition: Good Instructions: Chest Pain (ED) Time of Disposition: 15:08
--- NOTE | 2017-01-29 13:38 | Consultation ---
History of Present Illness Consult date: 01/29/17 Requesting physician: LIZZ MENDOZA Consult reason: chest pain History of present illness: The patient is a 66 YO female with a past medical history significant for CAD, s /p PCI (PCI of RCA in 08/2016 with subsequent subacute thrombus of the proximal RCA stent and balloon angioplasty with resolution of thrombus on 11/28/2016), ESRD, on HD, HTN, PVD, and tobacco use. She is followed in our office by Dr. Ford. She presented with c/o chest pain since yesterday evening. She describes her pain as an intermittent, nonexertional, nonradiating, midsternal pressure which was briefly associated with SOB today during dialysis. She reports that the pain is reproducible with palpation and is also aggravated by deep inspiration. She also c/o some new epigastric burning pain. She denies any precipitating factors, aggravating, or alleviating factors. She denies any palpitations, diaphoresis, n/v, dizziness, or syncope. Past History Past Medical History: CAD, dialysis, ESRD, hypertension, PVD Social history: smoking. denies: alcohol abuse, prescription drug abuse Medications and Allergies Allergies Allergy/AdvReac Type Severity Reaction Status Date / Time No Known Allergies Allergy Verified 12/09/13 08:59 Home Medications Medication Instructions Recorded Confirmed Last Taken Type Allopurinol [Zyloprim] 100 mg PO DAILY 08/03/14 01/09/17 1 Day Ago History Cinacalcet [Sensipar] 60 mg PO QDAY 09/13/16 01/09/17 1 Day Ago History Docusate Sodium [Colace CAP] 100 mg PO BID PRN 09/13/16 01/09/17 1 Day Ago History Folic Acid/Vit B Comp W-C [Renal 1 cap PO QDAY #30 capsule 12/28/16 01/09/17 1 Day Ago Rx Caps] Prasugrel [Effient] 10 mg PO QDAY #30 tablet 12/28/16 01/09/17 1 Day Ago Rx Sevelamer Carbonate [Renvela] 800 mg PO TIDWM #30 12/28/16 01/09/17 1 Day Ago Rx Aspirin EC [Aspirin Enteric Coated 81 mg PO QDAY #30 tablet. 01/10/17 Unknown Rx TAB] AtorvaSTATin [Lipitor] 40 mg PO QHS #30 tablet 01/10/17 Unknown Rx Carvedilol [Coreg] 12.5 mg PO BID #60 tablet 01/10/17 Unknown Rx ISOSORBIDE MONOnitrate [Imdur ER] 30 mg PO QDAY #30 tablet 01/10/17 Unknown Rx Lisinopril [Zestril TAB] 20 mg PO QDAY #30 tablet 01/10/17 Unknown Rx Pantoprazole [Protonix TAB] 40 mg PO QDAY #30 tablet 01/10/17 Unknown Rx Review of Systems Constitutional: no weight loss, no weight gain, no fever, no chills, no sweats Ears, nose, mouth and throat: no ear pain, no nose pain, no sinus pressure, no sinus pain Cardiovascular: chest pain, shortness of breath, no orthopnea, no palpitations, no rapid/irregular heart beat, no edema, no syncope, no lightheadedness, no dyspnea on exertion, no paroxysmal nocturnal dyspnea Respiratory: shortness of breath, pain on inspiration, no cough, no dyspnea on exertion, no congestion, no wheezing Gastrointestinal: abdominal pain (epigastric pain ), no nausea, no vomiting, no diarrhea, no constipation, no change in bowel habits Genitourinary Female: no pelvic pain, no flank pain, no menorrhagia, no dysuria , no urinary frequency, no urgency Musculoskeletal: no neck stiffness, no neck pain, no shooting arm pain, no arm numbness/tingling, no low back pain, no shooting leg pain, no leg numbness/ tingling, no redness of joints Integumentary: no rash, no pruritis, no redness, no sores, no wounds Neurological: no head injury, no paralysis, no weakness, no parathesias, no numbness, no tingling, no seizures Endocrine: no cold intolerance, no heat intolerance Hematologic/Lymphatic: no easy bruising, no easy bleeding, no lymphadenopathy Allergic/Immunologic: no urticaria, no wheezing, no persistent infections Physical Examination Vital Signs Temp Pulse Resp BP Pulse Ox 98.4 F 81 18 156/60 98 01/29/17 12:53 01/29/17 12:53 01/29/17 12:53 01/29/17 12:53 01/29/17 12:53 General appearance: no acute distress HEENT: Positive: PERRL, Normocephaly, Mucus Membranes Moist Neck: Positive: neck supple, trachea midline Cardiac: Positive: Reg Rate and Rhythm, S1/S2 Lungs: Positive: clear to auscultation Neuro: Positive: Grossly Intact, Cranial Nerve 2-12 Intact Abdomen: Positive: Soft, Active Bowel Sounds, Tender (epigastric ) Skin: Positive: Clear. Negative: Rash, Wound Musculoskeletal: No Fluid Collection, No Pain, Normal Range of Motion Extremities: Present: upper extr. pulses, lower extr. pulses. Absent: edema Results 01/29/17 13:31 - Imaging and Cardiology Echo: report reviewed Cardiac cath: report reviewed EKG: report reviewed, image reviewed EKG interpretations - Telemetry EKG Rhythm: Sinus Rhythm - EKG Sinus rhythms and dysrhythmias: sinus rhythm Repolarization changes or abnormalities: nonspecific abnormality, ST segment, and/or T wave Assessment and Plan Assessment: Chest pain, atypical / ? costchondritis - recurrent; ECG with NAF; recent stress test on 12/21/2016 with no evidence of ischemia; Chris pending. CAD, s/p PCI (PCI of RCA in 08/2016 with subsequent subacute thrombus of the proximal RCA stent and balloon angioplasty with resolution of thrombus on 2016) ESRD, on HD I/CMP - EF 35-30% on echo 11/2016 HTN PVD Tobacco use Plan: Currently stable cardiac status. Await Chris. If troponin is flat and unchanged from baseline, pt may discharge home from cardiology standpoint. Consider addition of NSAIDs in setting of ? costochondritis. Recommend follow up in our office with Dr. Ford within 1-2 weeks of hospital discharge ([phone]). Assessment and plan reviewed with pt at bedside. The patient has been seen in conjunction with Dr. Calvert who agrees with the assessment and plan of care.
[2017-01-29 13:54] LABS: Basophils % (Auto) 0.3 % (0.0-1.8); Eosinophils % (Auto) 1.7 % (0.0-4.3); Hematocrit 26.7 % (30.3-42.9); Hemoglobin 8.9 gm/dl (10.1-14.3); Mean Corpuscular HGB Conc 33 % (30-34); Mean Corpuscular Hemoglobin 31 pg (28-32); Mean Corpuscular Volume 92 fl (79-97); Platelet Count 220 K/mm3 (140-440); Red Blood Count 2.91 M/mm3 (3.65-5.03); Red Cell Distribution Width 19.1 % (13.2-15.2); White Blood Count 7.1 K/mm3 (4.5-11.0)
[2017-01-29 14:04] LABS: INR 1.18 (0.87-1.13)
[2017-01-29 14:05] LABS: Partial Thromboplastin Time 38.1 Sec. (24.2-36.6)
[2017-01-29 14:08] LABS: Creatine Kinase MB 1.7 ng/mL (0.0-4.0)
[2017-01-29 14:10] LABS: BUN/Creatinine Ratio 4.33; Bilirubin,Total 0.3 mg/dL (0.1-1.2); Calcium 8.3 mg/dL (8.4-10.2); Chloride 96.8 mmol/L (98-107); Potassium 3.5 mmol/L (3.6-5.0); Total Protein 5.9 g/dL (6.3-8.2)
--- NOTE | 2017-01-29 14:37 | XRay Report ---
Single view chest: Compared to 01/12/17. History: Chest pain. Findings: Marked cardiomegaly. Trachea is midline. No consolidation, pneumothorax or pleural effusion. Impression: Cardiomegaly. No acute changes.
[2017-01-29 16:22] VITALS: BP 154/82
== END 2017-01-29 16:20 | disposition home or self-care (01) ==
LOC: ED 12:42
DX: R07.2 Precordial pain (principal); I10 Essential (primary) hypertension; E11.9 Type 2 diabetes mellitus without complications; K21.9 Gastro-esophageal reflux disease without esophagitis; I12.0 Hypertensive chronic kidney disease with stage 5 chronic kidney disease or end stage renal disease; N18.6 End stage renal disease; M19.90 Unspecified osteoarthritis, unspecified site; M10.9 Gout, unspecified; F17.200 Nicotine dependence, unspecified, uncomplicated; Z95.818 Presence of other cardiac implants and grafts; Z86.73 Personal history of transient ischemic attack (TIA), and cerebral infarction without residual deficits
CPT/HCPCS: 36415; 71010; 80053; 80061; 82550; 82553; 84484; 85025; 85610; 85730; 93005; 93010; 96374; 96375; 96376; 99284; J2270; J2405

== ENCOUNTER 2017-02-12 11:43 | Emergency (ER) | payer MEDICARE ==
--- NOTE | 2017-02-12 12:29 | Emergency Department Report ---
ED General Adult HPI - General Chief complaint: Abdominal Pain Stated complaint: CHEST PAIN Time Seen by Provider: 02/12/17 12:11 Source: patient, EMS (ems notes not available at time of chart dictation), RN notes reviewed, old records reviewed Mode of arrival: Stretcher Limitations: No Limitations - History of Present Illness Initial comments: This is a 66-year-old female. I have evaluated her in the past. Nephrology: Dr. Todd Cardiology: Dr. Newton Past medical history: End-stage renal disease, on dialysis Sunday, Sunday, Sunday (recently admitted to the hospital, last dialysis was yesterday.) Past medical history also includes chronic elevated troponin, ischemic cardiomyopathy, hypertension, peripheral vascular disease. Patient has presented to this ER multiple times for nonspecific chest pain. I recently saw the patient for chest pain on January 12, and she was seen in consultation with her private bat carrier, but did not specifically recommend repeat acute coronary syndrome risk stratification. In addition, patient recently seen by cardiology, who did not recommend ACS risk stratification. Today, the patient complains of abdominal pain, back pain and chest pain. The abdominal pain is diffuse and achy. It increases with palpation, and decreases with rest. Has been present since last night. The back pain is achy. It increases with palpation and range of motion. There is no extremity weakness. numbness. The chest pain as subxiphoid and epigastric. It has been present since last night. It does not radiate to the back, arms and neck. There is no vomiting or diaphoresis. Patient denies fever. Denies dysuria. Reports that she makes scant urine. -: Gradual Location: chest, back, abdomen Quality: aching Consistency: intermittent Improves with: rest Associated Symptoms: chest pain, loss of appetite, weakness - Related Data Home Medications Medication Instructions Recorded Confirmed Last Taken Allopurinol [Zyloprim] 100 mg PO DAILY 08/03/14 01/09/17 1 Day Ago Cinacalcet [Sensipar] 60 mg PO QDAY 09/13/16 01/09/17 1 Day Ago Docusate Sodium [Colace CAP] 100 mg PO BID PRN 09/13/16 01/09/17 1 Day Ago Previous Rx's Medication Instructions Recorded Last Taken Type Folic Acid/Vit B Comp W-C [Renal 1 cap PO QDAY #30 capsule 12/28/16 1 Day Ago Rx Caps] Prasugrel [Effient] 10 mg PO QDAY #30 tablet 12/28/16 1 Day Ago Rx Sevelamer Carbonate [Renvela] 800 mg PO TIDWM #30 12/28/16 1 Day Ago Rx Aspirin EC [Aspirin Enteric Coated 81 mg PO QDAY #30 tablet. 01/10/17 Unknown Rx TAB] AtorvaSTATin [Lipitor] 40 mg PO QHS #30 tablet 01/10/17 Unknown Rx Carvedilol [Coreg] 12.5 mg PO BID #60 tablet 01/10/17 Unknown Rx ISOSORBIDE MONOnitrate [Imdur ER] 30 mg PO QDAY #30 tablet 01/10/17 Unknown Rx Lisinopril [Zestril TAB] 20 mg PO QDAY #30 tablet 01/10/17 Unknown Rx Pantoprazole [Protonix TAB] 40 mg PO QDAY #30 tablet 01/10/17 Unknown Rx Acetaminophen [Tylenol Arthritis] 650 mg PO Q6HR PRN #30 tablet.er 02/12/17 Unknown Rx Dicyclomine [Bentyl] 10 mg PO QID PRN #20 capsule 02/12/17 Unknown Rx Allergies Allergy/AdvReac Type Severity Reaction Status Date / Time No Known Allergies Allergy Verified 12/09/13 08:59 ED Review of Systems ROS: Stated complaint: CHEST PAIN Other details as noted in HPI Constitutional: malaise. denies: fever Eyes: denies: vision change ENT: denies: epistaxis Respiratory: see HPI Cardiovascular: chest pain Gastrointestinal: abdominal pain Genitourinary: as per HPI Musculoskeletal: as per HPI Skin: as per HPI Neurological: as per HPI Psychiatric: anxiety ED Past Medical Hx - Past Medical History Hx Hypertension: Yes Hx CVA: Yes (x 2) Hx Congestive Heart Failure: Yes Hx Diabetes: Yes Hx GERD: Yes Hx Liver Disease: Yes (LESION) Hx Renal Disease: Yes (ESRD/dialysis M, W, F) Hx Arthritis: Yes Hx COPD: No Additional medical history: enlarged heart, gout - Surgical History Hx Coronary Stent: Yes Hx Appendectomy: Yes Additional Surgical History: tubal ligation, vas cath. LUE fistula - Social History Smoking Status: Current Every Day Smoker Substance Use Type: None - Medications Home Medications: Home Medications Medication Instructions Recorded Confirmed Last Taken Type Allopurinol [Zyloprim] 100 mg PO DAILY 11/17/14 04/25/17 1 Day Ago History Cinacalcet [Sensipar] 60 mg PO QDAY 09/13/16 01/09/17 1 Day Ago History Docusate Sodium [Colace CAP] 100 mg PO BID PRN 09/13/16 01/09/17 1 Day Ago History Folic Acid/Vit B Comp W-C [Renal 1 cap PO QDAY #30 capsule 12/28/16 01/09/17 1 Day Ago Rx Caps] Prasugrel [Effient] 10 mg PO QDAY #30 tablet 12/28/16 01/09/17 1 Day Ago Rx Sevelamer Carbonate [Renvela] 800 mg PO TIDWM #30 12/28/16 01/09/17 1 Day Ago Rx Aspirin EC [Aspirin Enteric Coated 81 mg PO QDAY #30 tablet.dr 01/10/17 Unknown Rx TAB] AtorvaSTATin [Lipitor] 40 mg PO QHS #30 tablet 01/10/17 Unknown Rx Carvedilol [Coreg] 12.5 mg PO BID #60 tablet 01/10/17 Unknown Rx ISOSORBIDE MONOnitrate [Imdur ER] 30 mg PO QDAY #30 tablet 01/10/17 Unknown Rx Lisinopril [Zestril TAB] 20 mg PO QDAY #30 tablet 01/10/17 Unknown Rx Pantoprazole [Protonix TAB] 40 mg PO QDAY #30 tablet 01/10/17 Unknown Rx Acetaminophen [Tylenol Arthritis] 650 mg PO Q6HR PRN #30 tablet.er 02/12/17 Unknown Rx Dicyclomine [Bentyl] 10 mg PO QID PRN #20 capsule 02/12/17 Unknown Rx ED Physical Exam - General Limitations: No Limitations General appearance: alert, in no apparent distress - Eye Eye exam: Present: EOMI - ENT ENT exam: Present: normal exam, normal orophraynx, normal external ear exam - Neck Neck exam: Present: normal inspection - Respiratory Respiratory exam: Present: normal lung sounds bilaterally. Absent: respiratory distress, wheezes, rales, rhonchi, stridor, chest wall tenderness, accessory muscle use, decreased breath sounds, prolonged expiratory - Cardiovascular Cardiovascular Exam: Present: regular rate, normal rhythm, normal heart sounds. Absent: bradycardia, tachycardia, irregular rhythm, systolic murmur, diastolic murmur, rubs, gallop - GI/Abdominal GI/Abdominal exam: Present: soft, tenderness, normal bowel sounds. Absent: distended - Extremities Exam Extremities exam: Present: normal inspection, full ROM, normal capillary refill , other (there is a left upper extremity AV fistula with appropriate thrill). Absent: tenderness, pedal edema, joint swelling, calf tenderness - Back Exam Back exam: Present: normal inspection, full ROM. Absent: tenderness, CVA tenderness (R), CVA tenderness (L), muscle spasm, paraspinal tenderness, vertebral tenderness - Neurological Exam Neurological exam: Present: alert, oriented X3, normal gait, other (Extraocular movements intact. Tongue midline. No facial droop. Facial sensation intact to light touch in the V1, V2, V3 distribution bilaterally. 5 and 5 strength in 4 extremities.. Sensation is intact to light touch in 4 extremities.). Absent : motor sensory deficit - Psychiatric Psychiatric exam: Present: normal affect, normal mood ED Course Vital Signs 02/12/17 02/12/17 11:49 15:40 Temperature 98.4 F Pulse Rate 85 88 Respiratory 16 14 Rate Blood Pressure 149/61 174/73 [Right] O2 Sat by Pulse 99 99 Oximetry - Reevaluation(s) Reevaluation #1: 02/12/17 13:51 differential diagnosis: GERD, gastritis, colitis, diverticulitis , pneumonia, acute coronary syndrome, UTI, pulmonary embolus Assessment and plan: 66-year-old female with multiple chronic recurrent visits for chest pain, abdominal pain. I have evaluated her multiple times in the past. Her abdomen is minimally tender today, more so than on previous examinations. Patient recently had a d-dimer sent, no diagnostic study was performed. A CT scan of the chest, abdomen, pelvis has been performed. Results are pending. Pain medication will be given to the patient. Urinalysis is pending. EKG is abnormal but morphologically unchanged from prior EKG. The patient always has elevated troponin. 2 of Most recent cardiology consultations have not specifically recommended a serious risk stratification. We will send 2 troponins, currently her troponin appears to be at baseline, we will obtain serial EKGs. I have discussed the patient's care with her private napper runner, Dr. Todd, who indicates patient can get dialysis later on today , or tomorrow. Patient can contact [phone] To arrange dialysis. Reevaluation #2: 02/12/17 15:[address] scan of the chest, abdomen, pelvis negative. Repeat vital signs unremarkable. Repeat troponin chronically elevated, essentially appears to be at Baseline. case d/w patients private Acquisition Editor, Dr Taylor, and I discussed her laboratory studies, EKG and physical exam findings with him as well. He also agrees patient does not require admission for repeat ACS risk stratification. Repeat EKG abnormal, but also appears to be unchanged from prior EKGs. I have reassessed this patient multiple times while in the emergency department. She appears quite comfortable. There is no right lower quadrant tenderness, rebound or guarding. The patient was able to tolerate liquid feeds. I explained to the patient that I was unable to identify an emergent condition at this time, given her multiple recent hospitalizations, consultations, imaging studies, I did not feel that she required repeat admission. The patient is instructed to follow up with outpatient dialysis later on today or tomorrow, and to follow-up with her outpatient primary care doctor, napper runner, and bat carrier. The patient was able to urinate scantly in the morning, but is declining a catheterization this time, indicates that she does not have any urinary in her bladder bladder. 02/12/17 18:52 - EJ/Peripheral Line Neck L Time Out Performed: Yes Indications: nurses unable to establis Skin Cleansed in Sterile Fashion: Yes Size: 20 Dressing Placed: Tegaderm Patient Tolerated Procedure: well ED Medical Decision Making - Lab Data Result diagrams: 02/12/17 12:31 02/12/17 12:31 Vital Signs 02/12/17 11:49 Temperature 98.4 F Pulse Rate 85 Respiratory 16 Rate Blood Pressure 149/61 [Right] O2 Sat by Pulse 99 Oximetry Lab Results 02/12/17 02/12/17 02/12/17 Range/Units 12:31 12:31 12:31 WBC 7.0 (4.5-11.0) K/mm3 RBC 3.20 L (3.65-5.03) M/mm3 Hgb 9.6 L (10.1-14.3) gm/dl Hct 29.3 L (30.3-42.9) % MCV 91 (79-97) fl MCH 30 (28-32) pg MCHC 33 (30-34) % RDW 19.9 H (13.2-15.2) % Plt Count 256 (140-440) K/mm3 PT 13.8 (12.2-14.9) Sec. INR 1.07 (0.87-1.13) APTT 31.0 (24.2-36.6) Sec. Sodium 139 (137-145) mmol/L Potassium 3.6 (3.6-5.0) mmol/L Chloride 94.7 L (98-107) mmol/L Carbon Dioxide 29 (22-30) mmol/L Anion Gap 19 mmol/L BUN 37 H (7-17) mg/dL Creatinine 8.0 H (0.7-1.2) mg/dL Estimated GFR 6 ml/min BUN/Creatinine Ratio 4.62 % Glucose 106 H (65-100) mg/dL Calcium 8.7 (8.4-10.2) mg/dL Total Bilirubin 0.20 (0.1-1.2) mg/dL AST 9 (5-40) units/L ALT 11 (7-56) units/L Alkaline Phosphatase 83 (35-129) units/L Troponin T 0.159 H* (0.00-0.029) ng/mL Total Protein 6.3 (6.3-8.2) g/dL Albumin 3.4 L (3.9-5) g/dL Albumin/Globulin Ratio 1.2 % - EKG Data -: EKG Interpreted by Fl EKG shows normal: sinus rhythm Rate: normal - EKG Data When compared to previous EKG there are: no significant change Interpretation: unchanged when compared t 02/12/17 13:50 Normal sinus, 82 bpm, QTC 514 ms, persistent T wave abnormality 1, aVL, 2, aVF, V5 and V6, not morphologically consistent with STEMI, unchanged from prior EKG from February 10, abnormal EKG. - Radiology Data Radiology results: report reviewed, image reviewed X-ray the chest negative, demonstrates cardiomegaly and CT scan of the chest demonstrates no acute disease. CT scan of the abdomen and pelvis does not demonstrate any acute disease. Chronic findings are noted. Sigmoid diverticulosis is noted. No acute inflammatory processes noted. Critical care attestation.: If time is entered above; I have spent that time in minutes in the direct care of this critically ill patient, excluding procedure time. ED Disposition Clinical Impression: End stage renal disease, Abdominal pain, Chest pain Disposition: DISCHARGED TO HOME OR SELFCARE Is pt being admited?: No Does the pt Need Aspirin: No Condition: Stable Instructions: Chest Pain (ED), Abdominal Pain (ED) Additional Instructions: Continue current outpatient pain medications. Take the prescription medications as directed. Follow up today or tomorrow for dialysis. Contact the following phone number to arrange dialysis: contact [phone] To arrange dialysis. Follow-up with her primary care doctor napper runner or bat carrier within the next week. Return to the ER right away with new pain, worsened pain, migration of pain, intractable nausea or vomiting, fevers, chills, worsening pain, migration of pain, confusion, inability to tolerate liquid feeds. Prescriptions: Acetaminophen [Tylenol Arthritis] 650 mg PO Q6HR PRN #30 tablet.er PRN Reason: Pain Dicyclomine [Bentyl] 10 mg PO QID PRN #20 capsule PRN Reason: Pain Referrals: PRIMARY CARE, [Primary Care Provider] - 3-5 Days FARZANA TODD MD [Staff Physician] - 3-5 Days DAWN SCOTT MD [Staff Physician] - 3-5 Days CON VALDES MD [Staff Physician] - 3-5 Days
[2017-02-12 12:42] LABS: Hematocrit 29.3 % (30.3-42.9); Hemoglobin 9.6 gm/dl (10.1-14.3); Mean Corpuscular HGB Conc 33 % (30-34); Mean Corpuscular Hemoglobin 30 pg (28-32); Mean Corpuscular Volume 91 fl (79-97); Platelet Count 256 K/mm3 (140-440); Red Cell Distribution Width 19.9 % (13.2-15.2)
[2017-02-12 12:50] LABS: INR 1.07 (0.87-1.13)
[2017-02-12 13:03] LABS: Albumin 3.4 g/dL (3.9-5); Albumin/Globulin Ratio 1.2 %; BUN/Creatinine Ratio 4.62; Bilirubin,Total 0.2 mg/dL (0.1-1.2); Calcium 8.7 mg/dL (8.4-10.2); Chloride 94.7 mmol/L (98-107); Potassium 3.6 mmol/L (3.6-5.0); Total Protein 6.3 g/dL (6.3-8.2)
--- NOTE | 2017-02-12 13:06 | XRay Report ---
CHEST XRAY, 2 VIEWS: History: Chest pain. Findings: There is mild cardiomegaly. Pulmonary vessels are within normal limits. The lungs are clear and fully expanded. No infiltrate, pleural effusion or pneumothorax. Normal thoracic cage. IMPRESSION: Cardiomegaly.
--- NOTE | 2017-02-12 13:53 | Cat Scan Report ---
CTA CHEST: History: Chest pain. Technique: Helical CT following IV contrast. Pulmonary embolus protocol. Sagittal and coronal reformatted images. Rotational MIP images. Findings: Contrast bolus is slightly limited. There is poor opacification of the distal, small pulmonary arteries. No pulmonary embolus is identified. There is moderate cardiomegaly. No pericardial effusion is appreciated. The thyroid gland, tracheobronchial tree, esophagus, mediastinal vessels, lung salas and bony thorax are unremarkable. Impression: No pulmonary embolus is identified. Cardiomegaly.
--- NOTE | 2017-02-12 13:55 | Cat Scan Report ---
CT SCAN OF THE ABDOMEN AND PELVIS WITH CONTRAST: HISTORY: He. TECHNIQUE: Helical CT in 1.25mm intervals following IV contrast. Sagittal and coronal reconstructions. FINDINGS: The liver is normal in size and is without focal defect. No gallstones or biliary dilatation are noted. The spleen and pancreas demonstrate a normal size and attenuation with no evidence of abnormal mass. There is moderate bilateral renal atrophy. No focal renal lesion or hydronephrosis. The adrenal glands are normal. The bowel loops are normal caliber. Mild sigmoid diverticulosis is noted. No acute inflammatory process is appreciated. The appendix is not confidently identified. The abdominal aorta is normal caliber and contains mild diffuse calcified plaques. The uterus and adnexa are unremarkable. There is no evidence of peritoneal air or fluid. There is no evidence of any abnormal masses or fluid collections within the pelvis. No adenopathy is identified. The bladder is normal. IMPRESSION: Bilateral renal atrophy. Sigmoid diverticulosis. No convincing findings of diverticulitis. No acute inflammatory process is appreciated.
[2017-02-12] MEDS ORDERED: BENTYL IM ONE (14:18)
[2017-02-12] MEDS ORDERED: TYLENOL PO ONE (14:18)
[2017-02-12 15:41] VITALS: BP 174/73
== END 2017-02-12 16:51 | disposition home or self-care (01) ==
LOC: ED 11:43
DX: I12.0 Hypertensive chronic kidney disease with stage 5 chronic kidney disease or end stage renal disease (principal); N18.6 End stage renal disease; E11.22 Type 2 diabetes mellitus with diabetic chronic kidney disease; Z99.2 Dependence on renal dialysis; R10.84 Generalized abdominal pain; R07.9 Chest pain, unspecified; I50.9 Heart failure, unspecified; K21.9 Gastro-esophageal reflux disease without esophagitis; M19.90 Unspecified osteoarthritis, unspecified site; M10.9 Gout, unspecified; F17.200 Nicotine dependence, unspecified, uncomplicated; Z90.49 Acquired absence of other specified parts of digestive tract; Z86.73 Personal history of transient ischemic attack (TIA), and cerebral infarction without residual deficits; Z98.51 Tubal ligation status
CPT/HCPCS: 36415; 36569; 51701; 71020; 71275; 74177; 80053; 84484; 85027; 85610; 85730; 93005; 93010; 96372; 99285; J0500; Q9967

== ENCOUNTER 2017-03-12 10:58 | Emergency (ER) | payer MEDICARE ==
--- NOTE | 2017-03-12 11:43 | Emergency Department Report ---
Entered by IFRAH DELATORRE, acting as scribe for PATTI TELLES NP. Chief Complaint: Abdominal Pain Stated Complaint: ABDOMINAL PAIN Time Seen by Provider: 03/12/17 11:33 - HPI History of Present Illness: 66 y/o female that is non-toxic, non ill appearing, in no acute distress with c/ o diffused abdominal pain and butt pain that began 3 days ago. Patient denies nausea, vomiting, SOB, epigastric pain, SOB, and chest pain. - ROS Review of Systems: Reports abdominal pain and butt pain. Denies chest pain Denies nausea and vomiting. - Exam Vital Signs: Vital Signs 03/12/17 11:07 Temperature 97.6 F Pulse Rate 86 Respiratory 16 Rate Blood Pressure 126/72 O2 Sat by Pulse 100 Oximetry Physical Exam: Constitutional: Non toxic appearing, NAD. Abdomen: Abdomen is non-distended, soft. Tenderness to diffuse lower abdomen. No abdominal bruit. No epigastric pain. Negative [place] Tenderness. Negative [place] sign. MSE screening note: Focused history and physical exam performed. Due to findings the following was ordered: CBC, UA, amylase stat, BMP, CBC, lactic acid stat, lipase stat, prothrombin time INR stat, partial thromboplastin will be ordered on patient. ED Disposition for MSE Condition: Stable Instructions: Abdominal Pain (ED) This documentation as recorded by the scribe,IFRAH DELATORRE,accurately reflects the service I personally performed and the decisions made by KOKI carpio MARTIN, LINNETTE.
[2017-03-12 12:14] LABS: Basophils % (Auto) 0.5 % (0.0-1.8); Eosinophils % (Auto) 1.7 % (0.0-4.3); Hematocrit 33.2 % (30.3-42.9); Hemoglobin 10.7 gm/dl (10.1-14.3); Mean Corpuscular HGB Conc 32 % (30-34); Mean Corpuscular Hemoglobin 30 pg (28-32); Mean Corpuscular Volume 92 fl (79-97); Platelet Count 385 K/mm3 (140-440); Red Blood Count 3.59 M/mm3 (3.65-5.03); Red Cell Distribution Width 18.7 % (13.2-15.2); White Blood Count 11.5 K/mm3 (4.5-11.0)
[2017-03-12 12:17] LABS: BUN/Creatinine Ratio 6.12; Calcium 8.6 mg/dL (8.4-10.2); Chloride 91.6 mmol/L (98-107)
[2017-03-12 12:24] LABS: INR 1.12 (0.87-1.13)
[2017-03-12 12:26] LABS: Partial Thromboplastin Time 43.2 Sec. (24.2-36.6)
[2017-03-12] MEDS ORDERED: PERCOCET 5/325 PO ONE (23:49)
--- NOTE | 2017-03-13 00:01 | Emergency Department Report ---
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 Pain at the right hip and lower abdomen related into the buttock has lasted for approximately 2 weeks. Pain is intermittent and worse with movement and palpation, no alleviating factors. Pain is 8/10 in intensity. Patient taking tramadol without relief. Previous medical record reviewed and patient has had a right hip x-rays here in the ED over the course of several months. She denies any acute injuries or suspect this pain is chronic. Patient last CT abdomen and pelvis was February 12. Patient was recently discharged from the hospital after admission for chest pain. On average patient presents to the ED 2-3 times a month. Patient denies nausea, vomiting, fever, melena, hematochezia , or diarrhea. She does not have urine output. Patient was sent to the ED for evaluation instead of receiving her scheduled dialysis. No complaints of shortness of breath. Last dialysis was on Sunday (today is Sunday). Severity scale (0 -10): 7 - Related Data Home Medications Medication Instructions Recorded Confirmed Last Taken Allopurinol [Zyloprim] 100 mg PO DAILY 08/03/14 03/09/17 03/09/17 Cinacalcet [Sensipar] 60 mg PO QDAY 09/13/16 03/09/17 1 Day Ago Docusate Sodium [Colace CAP] 100 mg PO BID PRN 09/13/16 03/09/17 1 Day Ago Previous Rx's Medication Instructions Recorded Last Taken Type Folic Acid/Vit B Comp W-C [Renal 1 cap PO QDAY #30 capsule 12/28/16 1 Day Ago Rx Caps] Prasugrel [Effient] 10 mg PO QDAY #30 tablet 12/28/16 03/08/17 Rx Sevelamer Carbonate [Renvela] 800 mg PO TIDWM #30 12/28/16 03/08/17 Rx Aspirin EC [Aspirin Enteric Coated 81 mg PO QDAY #30 tablet. 01/10/17 Rx TAB] AtorvaSTATin [Lipitor] 40 mg PO QHS #30 tablet 01/10/17 03/08/17 Rx Pantoprazole [Protonix TAB] 40 mg PO QDAY #30 tablet 01/10/17 Unknown Rx Acetaminophen [Tylenol Arthritis] 650 mg PO Q6HR PRN #30 tablet.er 02/12/17 Unknown Rx Dicyclomine [Bentyl] 10 mg PO QID PRN #20 capsule 02/12/17 03/08/17 Rx ALBUTEROL NEB's [Proventil 0.083% 2.5 mg IH Q4HRT PRN #30 nebu 02/23/17 Unknown Rx NEBS] Ciprofloxacin HCl [Ciprofloxacin 250 mg PO DAILY #7 tablet 03/13/17 Unknown Rx TAB] HYDROcodone/APAP 5-325 [[place] 1 each PO Q6HR PRN #15 tablet 03/13/17 Unknown Rx 5/325] Promethazine [Phenergan TAB] 25 mg PO Q6HR PRN #20 tab 03/13/17 Unknown Rx metroNIDAZOLE [Flagyl] 500 mg PO Q8HR 7 Days 03/13/17 Unknown Rx Allergies Allergy/AdvReac Type Severity Reaction Status Date / Time No Known Allergies Allergy Verified 12/09/13 08:59 ED Review of Systems ROS: Stated complaint: ABDOMINAL PAIN Other details as noted in HPI Comment: All other systems reviewed and negative Other: Constitutional: No fevers chills or weight loss Eyes: No eye pain visual changes or discharge ENT: No ear pain or throat pain Neck: Denies pain Respiratory: Denies cough wheezing shortness of breath GI: Denies nausea, vomiting, diarrhea Musculoskeletal: right hip pain Skin: Denies rash, lesions, erythema Neurologic: Denies headache, numbness, weakness Psychiatric: Denies suicidal ideation, hallucinations ED Past Medical Hx - Past Medical History Hx Hypertension: Yes Hx CVA: Yes (x 2) Hx Congestive Heart Failure: Yes Hx Diabetes: Yes Hx GERD: Yes Hx Liver Disease: Yes (LESION) Hx Renal Disease: Yes (ESRD/dialysis M, W, F) Hx Arthritis: Yes Hx COPD: No Additional medical history: enlarged heart, gout - Surgical History Hx Coronary Stent: Yes Hx Appendectomy: Yes Additional Surgical History: tubal ligation, vas cath. LUE fistula. cardiac workup includes a stress test on 12/21/2016 that was unremarkable. Patient status post PCI of RCA with subsequent subacute thrombus of the proximal RCA stent and blue angioplasty with resolution of thrombosis on November 2016. - Social History Smoking Status: Current Every Day Smoker Substance Use Type: None - Medications Home Medications: Home Medications Medication Instructions Recorded Confirmed Last Taken Type Allopurinol [Zyloprim] 100 mg PO DAILY 08/03/14 03/09/17 03/09/17 History Cinacalcet [Sensipar] 60 mg PO QDAY 09/13/16 03/09/17 1 Day Ago History Docusate Sodium [Colace CAP] 100 mg PO BID PRN 09/13/16 03/09/17 1 Day Ago History Folic Acid/Vit B Comp W-C [Renal 1 cap PO QDAY #30 capsule 12/28/16 03/09/17 1 Day Ago Rx Caps] Prasugrel [Effient] 10 mg PO QDAY #30 tablet 12/28/16 03/09/17 03/08/17 Rx Sevelamer Carbonate [Renvela] 800 mg PO TIDWM #30 12/28/16 03/09/17 03/08/17 Rx Aspirin EC [Aspirin Enteric Coated 81 mg PO QDAY #30 tablet. 01/10/1703/09/17 Rx TAB] AtorvaSTATin [Lipitor] 40 mg PO QHS #30 tablet 01/10/17 03/09/17 03/08/17 Rx Pantoprazole [Protonix TAB] 40 mg PO QDAY #30 tablet 01/10/17 03/09/17 Unknown Rx Acetaminophen [Tylenol Arthritis] 650 mg PO Q6HR PRN #30 tablet.er 02/12/17 Unknown Rx Dicyclomine [Bentyl] 10 mg PO QID PRN #20 capsule 02/12/17 03/09/17 03/08/17 Rx ALBUTEROL NEB's [Proventil 0.083% 2.5 mg IH Q4HRT PRN #30 nebu 02/23/17 Unknown Rx NEBS] Ciprofloxacin HCl [Ciprofloxacin 250 mg PO DAILY #7 tablet 03/13/17 Unknown Rx TAB] HYDROcodone/APAP 5-325 [[place] 1 each PO Q6HR PRN #15 tablet 03/13/17 Unknown Rx 5/325] Promethazine [Phenergan TAB] 25 mg PO Q6HR PRN #20 tab 03/13/17 Unknown Rx metroNIDAZOLE [Flagyl] 500 mg PO Q8HR 7 Days 03/13/17 Unknown Rx ED Physical Exam - General Limitations: No Limitations - Other Other exam information: General: No limitations, patient is alert in no acute distress Head exam: Atraumatic, normocephalic Eyes exam: Normal appearance ENT: Moist mucous membrane, normal oropharynx Neck exam: Normal inspection, full range of motion, no meningismus nontender Respiratory exam: Clear to auscultation bilateral, no wheezes, rales, crackles Cardiovascular: Normal rate and rhythm, normal heart sounds Abdomen: Soft, nondistended, mild suprapubic tenderness, with normal bowel sounds, no rebound, or guarding Extremity: right hip tender to palp posteriorly, fROM, no deformity Back: Normal Inspection, full range of motion, no tenderness Neurologic: Alert, oriented x3, cranial nerves intact, no motor or sensory deficit Psychiatric: normal affect, normal mood Skin: Warm, dry, intact ED Course Vital Signs 03/12/17 03/12/17 11:07 22:48 Temperature 97.6 F 98.3 F Pulse Rate 86 93 H Respiratory 16 18 Rate Blood Pressure 126/72 102/58 O2 Sat by Pulse 100 96 Oximetry - Reevaluation(s) Reevaluation #1: 03/13/17 00:21 percocet ordered for pain - Consultations Consultation #1: 03/13/17 02:25 Case d/w Dr todd, [facility] gi rec abx rec renal dosing of cipro (250 qd), flagy dosing unchanged. Since potassium is at the high normal range recommend patient call dialysis center in the morning to arrange for dialysis later today Consultation #2: 03/13/17 03:27 case d/w Dr Junior GI, Rec abx and f/u ED Medical Decision Making - Lab Data Result diagrams: 03/12/17 11:44 03/12/17 11:44 Lab Results 03/12/17 03/12/17 03/12/17 Range/Units 11:44 11:44 11:44 WBC 11.5 H (4.5-11.0) K/mm3 RBC 3.59 L (3.65-5.03) M/mm3 Hgb 10.7 (10.1-14.3) gm/dl Hct 33.2 (30.3-42.9) % MCV 92 (79-97) fl MCH 30 (28-32) pg MCHC 32 (30-34) % RDW 18.7 H (13.2-15.2) % Plt Count 385 (140-440) K/mm3 Lymph % (Auto) 11.7 L (13.4-35.0) % [place] % (Auto) 7.8 H (0.0-7.3) % Eos % (Auto) 1.7 (0.0-4.3) % Baso % (Auto) 0.5 (0.0-1.8) % Lymph # 1.3 (1.2-5.4) K/mm3 [place] # 0.9 H (0.0-0.8) K/mm3 Eos # 0.2 (0.0-0.4) K/mm3 Baso # 0.1 (0.0-0.1) K/mm3 Seg Neutrophils % 78.3 H (40.0-70.0) % Seg Neutrophils # 9.0 H (1.8-7.7) K/mm3 PT 15.0 H (12.2-14.9) Sec. INR 1.12 (0.87-1.13) APTT 43.2 H (24.2-36.6) Sec. Sodium 137 (137-145) mmol/L Potassium 5.0 (3.6-5.0) mmol/L Chloride 91.6 L (98-107) mmol/L Carbon Dioxide 24 (22-30) mmol/L Anion Gap 26 mmol/L BUN 57 H (7-17) mg/dL Creatinine 9.3 H (0.7-1.2) mg/dL Estimated GFR 5 ml/min BUN/Creatinine Ratio 6.12 % Glucose 76 (65-100) mg/dL Lactic Acid (0.7-2.0) mmol/L Calcium 8.6 (8.4-10.2) mg/dL Amylase 43 (27-131) units/L Lipase 16 (13-60) units/L 06/26/17 Range/Units 11:44 WBC (4.5-11.0) K/mm3 RBC (3.65-5.03) M/mm3 Hgb (10.1-14.3) gm/dl Hct (30.3-42.9) % MCV (79-97) fl MCH (28-32) pg MCHC (30-34) % RDW (13.2-15.2) % Plt Count (140-440) K/mm3 Lymph % (Auto) (13.4-35.0) % [place] % (Auto) (0.0-7.3) % Eos % (Auto) (0.0-4.3) % Baso % (Auto) (0.0-1.8) % Lymph # (1.2-5.4) K/mm3 [place] # (0.0-0.8) K/mm3 Eos # (0.0-0.4) K/mm3 Baso # (0.0-0.1) K/mm3 Seg Neutrophils % (40.0-70.0) % Seg Neutrophils # (1.8-7.7) K/mm3 PT (12.2-14.9) Sec. INR (0.87-1.13) APTT (24.2-36.6) Sec. Sodium (137-145) mmol/L Potassium (3.6-5.0) mmol/L Chloride (98-107) mmol/L Carbon Dioxide (22-30) mmol/L Anion Gap mmol/L BUN (7-17) mg/dL Creatinine (0.7-1.2) mg/dL Estimated GFR ml/min BUN/Creatinine Ratio % Glucose (65-100) mg/dL Lactic Acid 1.00 (0.7-2.0) mmol/L Calcium (8.4-10.2) mg/dL Amylase (27-131) units/L Lipase (13-60) units/L - Radiology Data Radiology results: report reviewed CT abdomen and pelvis noncontrast: Segmental colitis involving the transverse colon, proximal descending colon and mid sigmoid colon. Likely inflammatory or infectious new compared to previous study. No obstruction - Medical Decision Making Plan to discharge patient home with pain medication and antibiotics for possible colitis. Outpatient GI follow-up with PMD follow-up will be encouraged. Patient will be encouraged to follow with dialysis Center today - Differential Diagnosis right hip strain, arthritis, osteomyelitis, diverticulitis, chronic pain Critical Care Time: No Critical care attestation.: If time is entered above; I have spent that time in minutes in the direct care of this critically ill patient, excluding procedure time. ED Disposition Clinical Impression: Chronic right hip pain, Colitis, ESRD (end stage renal disease) on dialysis Disposition: OP ADMIT IP TO THIS HOSP Is pt being admited?: Yes Condition: Stable Instructions: Arthralgia (ED), End-Stage Kidney Disease (ED) Additional Instructions: Call your dialysis center in the morning to get a time to come in today for your dialysis as instructed by Dr. Todd. Take the medication as needed for pain and antibiotics as prescribed. Follow-up with the iphone developer doctor provided. Return if symptoms worsen. Prescriptions: Ciprofloxacin HCl [Ciprofloxacin TAB] 250 mg PO DAILY #7 tablet HYDROcodone/APAP 5-325 [[place] 5/325] 1 each PO Q6HR PRN #15 tablet PRN Reason: Pain metroNIDAZOLE [Flagyl] 500 mg PO Q8HR 7 Days Promethazine [Phenergan TAB] 25 mg PO Q6HR PRN #20 tab PRN Reason: Nausea Referrals: LISA VALVERDE MD [Staff Physician] - 3-5 Days (GI doctor) FARZANA TODD MD [Staff Physician] - 3-5 Days (Kidney doctor ) Time of Disposition: 03:30
--- NOTE | 2017-03-13 01:11 | Cat Scan Report ---
FINAL REPORT EXAM: CT ABDOMEN PELVIS WO CON HISTORY: lower abd pain, right hip pain COMPARISON: CT of the abdomen pelvis February 12, 2017. TECHNIQUE: Contiguous axial images were obtained. Additional sagittal and coronal reformatted images were obtained. FINDINGS: Mild linear atelectasis or scarring at the lung bases. Mild to moderate cardiac enlargement. Gallbladder is distended but otherwise unremarkable. No calcified gallstones are gross inflammatory changes the gallbladder by CT. Liver, spleen, pancreas are grossly unremarkable. Mild nodular thickening of adrenal glands. Atrophy of the bilateral kidneys. There appears to be some retained contrast in bilateral kidneys from prior IV contrast enhanced study. This is compatible with renal dysfunction. 7 millimeter left renal cyst. No definite solid renal lesion. Aorta and IVC normal in caliber. Severe calcified plaque along the aorta and iliac arteries. There are few nonenlarged retroperitoneal lymph nodes. No distal ureteral urinary bladder calculi. Uterus is grossly unremarkable. Ovaries are not well visualized. Focal wall thickening of the mid sigmoid colon. Mild adjacent fat stranding. Findings are concerning for segmental colitis. Diverticulitis less likely. Mild wall thickening of the mid to distal transverse colon and proximal descending colon also compatible colitis. These findings are new from prior study. Prior stripe appendix Lumbar vertebral body heights are preserved. Grade 1 anterolisthesis of L5 on S1 probable prior anterior fusion at the L5-S1 level. Stable endplate irregularity likely reactive secondary to placement of interbody graft. Stable prominent Schmorl's node deformity at the inferior T10 level. Stable changes of mild sacroiliitis. IMPRESSION: Segmental colitis involving the transverse colon, proximal descending colon and mid sigmoid colon. This is likely inflammatory or infectious in etiology. Findings are new from prior study. No bowel obstruction. Stable changes of mild sacroiliitis. No other gross acute findings.
[2017-03-13] MEDS ORDERED: LEVAQUIN PO ONE (03:14)
[2017-03-13] MEDS ORDERED: FLAGYL PO ONE (03:14)
[2017-03-13 04:46] VITALS: BP 101/56
== END 2017-03-13 04:52 | disposition admitted as inpatient to this hospital (09) ==
LOC: ED 10:58
DX: E11.22 Type 2 diabetes mellitus with diabetic chronic kidney disease (principal); I12.0 Hypertensive chronic kidney disease with stage 5 chronic kidney disease or end stage renal disease; N18.6 End stage renal disease; M25.551 Pain in right hip; K52.9 Noninfective gastroenteritis and colitis, unspecified; Z86.73 Personal history of transient ischemic attack (TIA), and cerebral infarction without residual deficits; I50.9 Heart failure, unspecified; K21.9 Gastro-esophageal reflux disease without esophagitis; M19.90 Unspecified osteoarthritis, unspecified site; Z98.51 Tubal ligation status; Z95.818 Presence of other cardiac implants and grafts; Z90.49 Acquired absence of other specified parts of digestive tract; F17.200 Nicotine dependence, unspecified, uncomplicated; Z79.82 Long term (current) use of aspirin
CPT/HCPCS: 36415; 74176; 80048; 82140; 82150; 83690; 85025; 85610; 85730

== ENCOUNTER 2017-05-01 07:41 | Emergency (ER) | payer MEDICARE ==
[2017-05-01 08:16] LABS: Basophils % (Auto) 0.7 % (0.0-1.8); Eosinophils % (Auto) 0.5 % (0.0-4.3); Hematocrit 29.1 % (30.3-42.9); Hemoglobin 9.4 gm/dl (10.1-14.3); Mean Corpuscular HGB Conc 32 % (30-34); Mean Corpuscular Hemoglobin 30 pg (28-32); Mean Corpuscular Volume 94 fl (79-97); Platelet Count 282 K/mm3 (140-440); Red Blood Count 3.11 M/mm3 (3.65-5.03); Red Cell Distribution Width 19.2 % (13.2-15.2); White Blood Count 4.4 K/mm3 (4.5-11.0)
[2017-05-01 08:26] LABS: INR 1.02 (0.87-1.13)
[2017-05-01 08:30] LABS: BUN/Creatinine Ratio 4.62; Calcium 9.3 mg/dL (8.4-10.2); Potassium 3.6 mmol/L (3.6-5.0)
--- NOTE | 2017-05-01 08:38 | XRay Report ---
PORTABLE CHEST INDICATION: Chest pain. COMPARISON: 03/21/2017 FINDINGS: Portable, frontal chest radiograph demonstrated stable cardiomediastinal silhouette/mild cardiomegaly. Aortic knob calcifications. No pleural effusions or CHF. Slight left lower lung horizontal atelectasis. Stable bones and few surgical clips along the left upper arm soft tissues medially. CONCLUSION: Stable mild cardiomegaly without acute significant chest process, as described. Thank you for the opportunity to participate in this patient's care.
[2017-05-01] MEDS ORDERED: PEPCID PO ONE (09:13)
[2017-05-01] MEDS ORDERED: CARAFATE PO ONE (09:13)
[2017-05-01] MEDS ORDERED: ALUM-MAG HYDROX-SIMETH 200-200-20MG/5ML PO ONE (09:13)
--- NOTE | 2017-05-01 09:16 | Emergency Department Report ---
ED Chest Pain HPI - General Chief Complaint: Chest Pain Stated Complaint: CHEST PAIN Time Seen by Provider: 05/01/17 08:00 Source: patient, family, EMS (ems notes not available at time of chart dictation), RN notes reviewed, old records reviewed Mode of arrival: Stretcher Limitations: No Limitations - History of Present Illness Initial Comments: This is a 66-year-old female. I have reevaluated her multiple times in the past. Past medical history includes heart disease, stent, end-stage renal disease on dialysis. Patient recently admitted to this hospital for chest pain, had a cardiac catheterization performed on March 2017, which demonstrated proximal RCA disease, and patient was transferred for stenting. The patient presents to the ER today complaining of chest pain. The chest pain is left-sided and radiates to the back. Patient denies nausea, vomiting and diaphoresis. She has chronic shortness of breath. There is no leg pain. There is no leg swelling. Patient reports getting her dialysis yesterday. The patient also requests that she would like something to eat. MD Complaint: chest pain -: Gradual Onset: during rest Pain Location: left chest Pain Radiation: back Quality: aching Consistency: intermittent Improves With: nothing Worsens With: nothing re: dyspnea Aspirin use within the Past 7 Days: (1) Yes - Related Data On Oral Contraceptives: No Home Medications Medication Instructions Recorded Confirmed Last Taken Allopurinol [Zyloprim] 100 mg PO DAILY 08/03/14 03/21/17 03/09/17 Cinacalcet [Sensipar] 60 mg PO QDAY 09/13/16 03/21/17 1 Day Ago Docusate Sodium [Colace CAP] 100 mg PO BID PRN 09/13/16 03/21/17 1 Day Ago Previous Rx's Medication Instructions Recorded Last Taken Type Folic Acid/Vit B Comp W-C [Renal 1 cap PO QDAY #30 capsule 12/28/16 1 Day Ago Rx Caps] Prasugrel [Effient] 10 mg PO QDAY #30 tablet 12/28/16 03/08/17 Rx Sevelamer Carbonate [Renvela] 800 mg PO TIDWM #30 12/28/16 03/08/17 Rx Aspirin EC [Aspirin Enteric Coated 81 mg PO QDAY #30 tablet. 01/10/17 Rx TAB] AtorvaSTATin [Lipitor] 40 mg PO QHS #30 tablet 01/10/17 03/08/17 Rx Pantoprazole [Protonix TAB] 40 mg PO QDAY #30 tablet 01/10/17 Unknown Rx Acetaminophen [Tylenol Arthritis] 650 mg PO Q6HR PRN #30 tablet.er 02/12/17 Unknown Rx Dicyclomine [Bentyl] 10 mg PO QID PRN #20 capsule 02/12/17 03/08/17 Rx HYDROcodone/APAP 5-325 [[place] 1 each PO Q6HR PRN #15 tablet 03/13/17 Unknown Rx 5/325] Promethazine [Phenergan TAB] 25 mg PO Q6HR PRN #20 tab 03/13/17 Unknown Rx Allergies Allergy/AdvReac Type Severity Reaction Status Date / Time No Known Allergies Allergy Verified 12/09/13 08:59 Heart Score - HEART Score History: Moderately suspicious EKG: Non-specific Age: > 65 Risk factors: > 3 risk factors or hx of atherosclerotic disease Troponin: 1-3x normal limit HEART Score: 7 - Critical Actions Critical Actions: >7 pts:50-65% risk of adverse cardiac event. Early invasive measures ED Review of Systems ROS: Stated complaint: CHEST PAIN Other details as noted in HPI Constitutional: malaise. denies: fever Eyes: denies: vision change ENT: denies: epistaxis Respiratory: shortness of breath Cardiovascular: chest pain Gastrointestinal: denies: vomiting Genitourinary: denies: dysuria Musculoskeletal: denies: back pain Skin: denies: rash Neurological: headache Psychiatric: anxiety ED Past Medical Hx - Past Medical History Hx Hypertension: Yes Hx CVA: Yes (x 2) Hx Congestive Heart Failure: Yes Hx Diabetes: Yes Hx GERD: Yes Hx Liver Disease: Yes (LESION) Hx Renal Disease: Yes (ESRD/dialysis M, W, F) Hx Arthritis: Yes Hx Asthma: Yes Hx COPD: No Additional medical history: enlarged heart, gout - Surgical History Hx Coronary Stent: Yes Hx Appendectomy: Yes Additional Surgical History: tubal ligation, vas cath. LUE fistula. cardiac workup includes a stress test on 12/21/2016 that was unremarkable. Patient status post PCI of RCA with subsequent subacute thrombus of the proximal RCA stent and blue angioplasty with resolution of thrombosis on November 2016. - Social History Smoking Status: Light Tobacco Smoker Substance Use Type: None - Medications Home Medications: Home Medications Medication Instructions Recorded Confirmed Last Taken Type Allopurinol [Zyloprim] 100 mg PO DAILY 08/03/14 03/21/17 03/09/17 History Cinacalcet [Sensipar] 60 mg PO QDAY 09/13/16 03/21/17 1 Day Ago History Docusate Sodium [Colace CAP] 100 mg PO BID PRN 09/13/16 03/21/17 1 Day Ago History Folic Acid/Vit B Comp W-C [Renal 1 cap PO QDAY #30 capsule 12/28/16 03/21/17 1 Day Ago Rx Caps] Prasugrel [Effient] 10 mg PO QDAY #30 tablet 12/28/16 03/21/17 03/08/17 Rx Sevelamer Carbonate [Renvela] 800 mg PO TIDWM #30 12/28/16 03/21/17 03/08/17 Rx Aspirin EC [Aspirin Enteric Coated 81 mg PO QDAY #30 tablet. 01/10/1703/09/17 Rx TAB] AtorvaSTATin [Lipitor] 40 mg PO QHS #30 tablet 01/10/17 03/21/17 03/08/17 Rx Pantoprazole [Protonix TAB] 40 mg PO QDAY #30 tablet 01/10/17 03/21/17 Unknown Rx Acetaminophen [Tylenol Arthritis] 650 mg PO Q6HR PRN #30 tablet.er 02/12/1701/31 Unknown Rx Dicyclomine [Bentyl] 10 mg PO QID PRN #20 capsule 02/12/17 03/21/17 03/08/17 Rx HYDROcodone/APAP 5-325 [[place] 1 each PO Q6HR PRN #15 tablet 03/13/17 03/21/17 Unknown Rx 5/325] Promethazine [Phenergan TAB] 25 mg PO Q6HR PRN #20 tab 03/13/17 03/21/17 Unknown Rx ED Physical Exam - General Limitations: No Limitations General appearance: alert, in no apparent distress - Head Head exam: Present: atraumatic, normocephalic - Eye Eye exam: Present: normal appearance, EOMI. Absent: nystagmus - ENT ENT exam: Present: normal exam, normal orophraynx, mucous membranes moist - Neck Neck exam: Present: normal inspection, full ROM. Absent: tenderness, meningismus - Respiratory Respiratory exam: Present: normal lung sounds bilaterally. Absent: respiratory distress, wheezes, rales, rhonchi, stridor, chest wall tenderness - Cardiovascular Cardiovascular Exam: Present: regular rate, normal rhythm, normal heart sounds. Absent: bradycardia, tachycardia, irregular rhythm, systolic murmur, diastolic murmur, rubs, gallop - GI/Abdominal GI/Abdominal exam: Present: soft, normal bowel sounds. Absent: distended, tenderness, guarding, rebound, rigid, pulsatile mass - Extremities Exam Extremities exam: Present: normal inspection, full ROM, normal capillary refill , other (left upper extremity AV fistula with an appropriate thrill. No redness , pus or streaking). Absent: tenderness, pedal edema, joint swelling, calf tenderness - Back Exam Back exam: Present: normal inspection, full ROM. Absent: tenderness, CVA tenderness (R), CVA tenderness (L), muscle spasm, paraspinal tenderness, vertebral tenderness - Neurological Exam Neurological exam: Present: alert (visual acuity intact to finger counting, color perception, reading at a close distance), oriented X3 (there is no temporal tenderness. There is no jaw claudication.), normal gait, other ( Extraocular movements intact. Tongue midline. No facial droop. Facial sensation intact to light touch in the V1, V2, V3 distribution bilaterally. 5 and 5 strength in 4 extremities.. Sensation is intact to light touch in 4 extremities.). Absent: motor sensory deficit - Psychiatric Psychiatric exam: Present: normal affect, normal mood - Skin Skin exam: Present: warm, dry, intact, normal color. Absent: rash ED Course Vital Signs 05/01/17 05/01/17 05/01/17 08:20 08:35 11:00 Temperature 98.8 F Pulse Rate 84 87 Respiratory 18 18 18 Rate Blood Pressure 182/114 170/63 [Left] O2 Sat by Pulse 100 100 100 Oximetry 05/01/17 05/01/17 14:15 14:45 Temperature Pulse Rate Respiratory 18 18 Rate Blood Pressure [Left] O2 Sat by Pulse Oximetry - Reevaluation(s) Reevaluation #1: 05/01/17 12:16 Differential diagnosis: Acute coronary syndrome, GERD, gastritis, pneumonia, pulmonary embolus, chronic angina Assessment and plan: 66-year-old female with chronic chest pain. Patient has had multiple evaluations at this hospital for chest pain. I have personally evaluated this patient multiple times for chest pain. Her EKG is morphologically abnormal, but unchanged from prior. Troponin elevated, however it is always elevated secondary to her renal insufficiency. D-dimer is negative, low risk by well's criteria, chest x-ray negative. Case is discussed with cardiology, Nico Lazaro, and they have ordered a nuclear stress test for the patient to perform risk stratification. Reevaluation #2: 05/01/17 13:57 patient is back from nuclear stress test. Cardiology requested that patient be sent back after getting pain medication, to have post scan images sent. Reevaluation #3: 05/01/17 15:32 patient is sleeping comfortably. Repeat EKG is unchanged. As per cardiology, repeat stress test images are negative for ischemia, and it is cardiology's recommendation that the patient may be discharged from an ACS perspective. Troponin still elevated, unsurprisingly so, patient always has elevated troponin. Patient will be discharged at this time. - EJ/Peripheral Line Neck L Time Out Performed: Yes Indications: nurses unable to establis Skin Cleansed in Sterile Fashion: Yes Size: 20 Dressing Placed: Tegaderm Patient Tolerated Procedure: well JACQUES score - Jacques Score Age > 65: (1) Yes Aspirin use within the Past 7 Days: (1) Yes 3 or more CAD Risk Factors: (1) Yes 2 or more Angina events in past 24 hrs: (0) No Known CAD with more than 50% Stenosis: (1) Yes Elevated Cardiac Markers: (0) No ST Deviation Greater than 0.5mm: (0) No JACQUES Score: 4 ED Medical Decision Making - Lab Data Result diagrams: 05/01/17 08:06 05/01/17 08:03 Lab Results 05/01/17 05/01/17 05/01/17 Range/Units 08:03 08:06 08:08 WBC 4.4 L (4.5-11.0) K/mm3 RBC 3.11 L (3.65-5.03) M/mm3 Hgb 9.4 L (10.1-14.3) gm/dl Hct 29.1 L (30.3-42.9) % MCV 94 (79-97) fl MCH 30 (28-32) pg MCHC 32 (30-34) % RDW 19.2 H (13.2-15.2) % Plt Count 282 (140-440) K/mm3 Lymph % (Auto) 40.7 H (13.4-35.0) % [place] % (Auto) 15.6 H (0.0-7.3) % Eos % (Auto) 0.5 (0.0-4.3) % Baso % (Auto) 0.7 (0.0-1.8) % Lymph # 1.8 (1.2-5.4) K/mm3 [place] # 0.7 (0.0-0.8) K/mm3 Eos # 0.0 (0.0-0.4) K/mm3 Baso # 0.0 (0.0-0.1) K/mm3 Seg Neutrophils % 42.5 (40.0-70.0) % Seg Neutrophils # 1.9 (1.8-7.7) K/mm3 PT 13.3 (12.2-14.9) Sec. INR 1.02 (0.87-1.13) D-Dimer (0-234) ng/mlDDU Sodium 145 (137-145) mmol/L Potassium 3.6 (3.6-5.0) mmol/L Chloride 96.0 L (98-107) mmol/L Carbon Dioxide 39 H (22-30) mmol/L Anion Gap 14 mmol/L BUN 25 H (7-17) mg/dL Creatinine 5.4 H (0.7-1.2) mg/dL Estimated GFR 10 ml/min BUN/Creatinine Ratio 4.62 % Glucose 88 (65-100) mg/dL Calcium 9.3 (8.4-10.2) mg/dL Troponin T 0.094 H (0.00-0.029) ng/mL 05/01/17 Range/Units 08:08 WBC (4.5-11.0) K/mm3 RBC (3.65-5.03) M/mm3 Hgb (10.1-14.3) gm/dl Hct (30.3-42.9) % MCV (79-97) fl MCH (28-32) pg MCHC (30-34) % RDW (13.2-15.2) % Plt Count (140-440) K/mm3 Lymph % (Auto) (13.4-35.0) % [place] % (Auto) (0.0-7.3) % Eos % (Auto) (0.0-4.3) % Baso % (Auto) (0.0-1.8) % Lymph # (1.2-5.4) K/mm3 [place] # (0.0-0.8) K/mm3 Eos # (0.0-0.4) K/mm3 Baso # (0.0-0.1) K/mm3 Seg Neutrophils % (40.0-70.0) % Seg Neutrophils # (1.8-7.7) K/mm3 PT (12.2-14.9) Sec. INR (0.87-1.13) D-Dimer 215.78 (0-234) ng/mlDDU Sodium (137-145) mmol/L Potassium (3.6-5.0) mmol/L Chloride (98-107) mmol/L Carbon Dioxide (22-30) mmol/L Anion Gap mmol/L BUN (7-17) mg/dL Creatinine (0.7-1.2) mg/dL Estimated GFR ml/min BUN/Creatinine Ratio % Glucose (65-100) mg/dL Calcium (8.4-10.2) mg/dL Troponin T (0.00-0.029) ng/mL - EKG Data -: EKG Interpreted by Me - EKG Data When compared to previous EKG there are: no significant change 05/01/17 12:18 Normal sinus, 85 beats per minute, left ventricular hypertrophy, Q waves noted in 1 and aVL, motion artifact, not morphologically consistent with STEMI, appears unchanged compared to prior. Repeat EKG demonstrates sinus, 98 bpm, QTC 525 ms, Q waves noted in aVL, atrial enlargement, abnormal EKG, not morphologically consistent with stemming 05/01/17 15:01 - Radiology Data Radiology results: report reviewed, image reviewed interpreted by me: X-ray of the chest is negative for acute disease. Chronic cardiomegaly. Critical care attestation.: If time is entered above; I have spent that time in minutes in the direct care of this critically ill patient, excluding procedure time. ED Disposition Clinical Impression: End stage renal disease Chest pain Qualifiers: Chest pain type: unspecified Qualified Code(s): R07.9 - Chest pain, unspecified Disposition: DC-01 TO HOME OR SELFCARE Is pt being admited?: No Does the pt Need Aspirin: No Condition: Good Instructions: Chest Pain (ED) Additional Instructions: Continue current outpatient medications. 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 Follow up with outpatient dialysis. Return to the ER right away with new pain, worsened pain, migration of pain, fevers, chills, confusion, chest pain, intractable nausea or vomiting, inability to tolerate liquid feeds. Referrals: PRIMARY CARE, [Primary Care Provider] - 3-5 Days NOAH UREÑA MD [Staff Physician] - 3-5 Days AZAM VALDEZ MD [Staff Physician] - 3-5 Days
--- NOTE | 2017-05-01 10:46 | Consultation ---
History of Present Illness Consult date: 05/01/17 Requesting physician: CON JAMES Consult reason: chest pain History of present illness: The patient is a 66 YO female with a past medical history significant for CAD, s /p PCI (PCI of RCA in 08/2016 with subsequent subacute thrombus of the proximal RCA stent and balloon angioplasty with resolution of thrombus on 11/28/2016, s/p additional PCI of RCA on 03/22/2017 @ [place]), ESRD on HD, HTN, PVD, recurrent chest pain, and tobacco use. She is followed in our office by Dr. Ford. She is a rather poor historian. She presented with c/o intermittent substernal chest tightness and diffuse abdominal pain that started at 2:30 this AM. The pain awoke her from sleep. Associated with mild shortness of breath. No exacerbating or relieving factors. First troponin is 0.094; ECG with NAF. She states that she has been compliant with all of her medications. Past History Past Medical History: CAD, dialysis, ESRD, hypertension, PVD Social history: smoking. denies: alcohol abuse, prescription drug abuse Medications and Allergies Allergies Allergy/AdvReac Type Severity Reaction Status Date / Time No Known Allergies Allergy Verified 12/09/13 08:59 Home Medications Medication Instructions Recorded Confirmed Last Taken Type Allopurinol [Zyloprim] 100 mg PO DAILY 08/03/14 03/21/17 03/09/17 History Cinacalcet [Sensipar] 60 mg PO QDAY 09/13/16 03/21/17 1 Day Ago History Docusate Sodium [Colace CAP] 100 mg PO BID PRN 09/13/16 03/21/17 1 Day Ago History Folic Acid/Vit B Comp W-C [Renal 1 cap PO QDAY #30 capsule 12/28/16 03/21/17 1 Day Ago Rx Caps] Prasugrel [Effient] 10 mg PO QDAY #30 tablet 12/28/16 03/21/17 03/08/17 Rx Sevelamer Carbonate [Renvela] 800 mg PO TIDWM #30 12/28/16 03/21/17 03/08/17 Rx Aspirin EC [Aspirin Enteric Coated 81 mg PO QDAY #30 tablet. 01/10/1703/09/17 Rx TAB] AtorvaSTATin [Lipitor] 40 mg PO QHS #30 tablet 01/10/17 03/21/17 03/08/17 Rx Pantoprazole [Protonix TAB] 40 mg PO QDAY #30 tablet 01/10/17 03/21/17 Unknown Rx Acetaminophen [Tylenol Arthritis] 650 mg PO Q6HR PRN #30 tablet.er 02/12/1701/31 Unknown Rx Dicyclomine [Bentyl] 10 mg PO QID PRN #20 capsule 02/12/17 03/21/17 03/08/17 Rx HYDROcodone/APAP 5-325 [[place] 1 each PO Q6HR PRN #15 tablet 03/13/17 03/21/17 Unknown Rx 5/325] Promethazine [Phenergan TAB] 25 mg PO Q6HR PRN #20 tab 03/13/17 03/21/17 Unknown Rx Review of Systems Cardiovascular: chest pain, shortness of breath, no orthopnea, no palpitations, no rapid/irregular heart beat, no edema, no syncope, no lightheadedness, no dyspnea on exertion, no paroxysmal nocturnal dyspnea, no leg edema Gastrointestinal: abdominal pain, no nausea, no vomiting, no diarrhea, no constipation, no change in bowel habits Physical Examination General appearance: no acute distress HEENT: Positive: PERRL, Normocephaly, Mucus Membranes Moist Neck: Positive: neck supple, trachea midline Cardiac: Positive: Reg Rate and Rhythm, S1/S2 Results 05/01/17 08:06 05/01/17 08:03 Coagulation 05/01/17 Range/Units 08:08 PT 13.3 (12.2-14.9) Sec. INR 1.02 (0.87-1.13) CBC 05/01/17 Range/Units 08:06 WBC 4.4 L (4.5-11.0) K/mm3 RBC 3.11 L (3.65-5.03) M/mm3 Hgb 9.4 L (10.1-14.3) gm/dl Hct 29.1 L (30.3-42.9) % Plt Count 282 (140-440) K/mm3 Lymph # 1.8 (1.2-5.4) K/mm3 [place] # 0.7 (0.0-0.8) K/mm3 Eos # 0.0 (0.0-0.4) K/mm3 Baso # 0.0 (0.0-0.1) K/mm3 Comprehensive Metabolic Panel 05/01/17 Range/Units 08:03 Sodium 145 (137-145) mmol/L Potassium 3.6 (3.6-5.0) mmol/L Chloride 96.0 L (98-107) mmol/L Carbon Dioxide 39 H (22-30) mmol/L BUN 25 H (7-17) mg/dL Creatinine 5.4 H (0.7-1.2) mg/dL Glucose 88 (65-100) mg/dL Calcium 9.3 (8.4-10.2) mg/dL Assessment and Plan Assessment: Recurrent chest pain CAD, s/p PCI Elevated troponin - chronically mildly elevated in setting of ESRD; unchanged from prior admission; ECG with NAF. CMP - EF 35-30% on echo 11/2016 ESRD on HD HTN PVD Tobacco use Plan: Proceed with lexiscan MPI stress test this AM. Await findings. The patient has been seen in conjunction with Dr. JULIAN Still who agrees with the assessment and plan of care.
[2017-05-01] MEDS ORDERED: EFFIENT PO SCH (12:00)
[2017-05-01] MEDS ORDERED: LEXISCAN IV ONE ×2 (12:46)
[2017-05-01] MEDS ORDERED: DILAUDID IV ONE (13:57)
--- NOTE | 2017-05-01 15:31 | Event Note ---
Date: 05/01/17 Lexiscan MPI stress test showed no significant ischemia. Currently stable cardiac status. Pt may discharge home from cardiology standpoint. Recommend follow up in our office with Amanda Spicer NP, within 1-2 weeks of hospital discharge. Quinton CERNA NP / DR. JULIAN VALDEZ
[2017-05-01 16:48] VITALS: BP 167/69
[2017-05-02] MEDS ORDERED: HALFPRIN EC PO SCH (10:00)
--- NOTE | 2017-05-02 22:52 | Treadmill Report ---
NUCLEAR STRESS TEST REPORT The patient was brought to the nuclear cardiology lab and she underwent a nuclear stress test with Lexiscan administration. The patient tolerated the procedure well. Post-stress images revealed fairly homogeneous distribution of the isotope with mild reduction of the isotope in the inferior wall; however, no significant reversibility is noted. The inferior defect appears to be mostly fixed. Accompanying gated study shows an ejection fraction of 26%. Dual isotope study shows left ventricle with moderately severe left ventricular systolic dysfunction with a calculated ejection fraction of about 24%. Small mostly fixed inferior defect is noted and is of questionable significance. It may represent old inferior myocardial infarction. No large areas of reversibility to indicate ischemia noted. IMPRESSION: 1. Abnormal nuclear scan. 2. Small mostly fixed inferior defect with minimal reversibility suggestive of old inferior myocardial infarction with duglas-infarction ischemia versus artifact. 3. Dilated left ventricle with severe left ventricular systolic dysfunction with ejection fraction of about 44%, global hypokinesis is noted. 4. Suggest clinical correlation. JOB# [id number] JANA/RODY PIZANO
== END 2017-05-01 15:50 | disposition home or self-care (01) ==
LOC: ED 07:41
DX: R07.9 Chest pain, unspecified (principal); E11.22 Type 2 diabetes mellitus with diabetic chronic kidney disease; I12.0 Hypertensive chronic kidney disease with stage 5 chronic kidney disease or end stage renal disease; N18.6 End stage renal disease; Z99.2 Dependence on renal dialysis; Z86.73 Personal history of transient ischemic attack (TIA), and cerebral infarction without residual deficits; K21.9 Gastro-esophageal reflux disease without esophagitis; M19.90 Unspecified osteoarthritis, unspecified site; J45.909 Unspecified asthma, uncomplicated; Z95.818 Presence of other cardiac implants and grafts; F17.200 Nicotine dependence, unspecified, uncomplicated
CPT/HCPCS: 36415; 36569; 71010; 78452; 80048; 80061; 84484; 85025; 85379; 85610; 93005; 93010; 93017; 96374; 96375; 99285; A9502; J1170; J2785; A9270-GY

== ENCOUNTER 2017-05-07 11:12 | Emergency (ER) | payer MEDICARE ==
--- NOTE | 2017-05-07 11:53 | Emergency Department Report ---
ED Chest Pain HPI - General Chief Complaint: Chest Pain Stated Complaint: CHEST PAIN Time Seen by Provider: 05/07/17 11:41 Source: patient, EMS Mode of arrival: Stretcher Limitations: No Limitations - History of Present Illness Initial Comments: 66 yo female with a past medical history is significant CAD with multiple PCI, CVA, diabetes, hypertension, CHF, and multiple visits to the ER and hospitalist for chest pain and abdominal pain presents to the hospital complaining of chest pain and abdominal pain since last night. Patient complained of a constant chest tightness and burning sensation rated 9/10 intensity. Symptoms occurred at rest. No aggravating alleviating factors reported. Patient complained of shortness of breath. Today but denies any shortness of breath at this time. Patient also having lower abdominal pain since last night. Positive nausea without vomiting or diarrhea reported. No reports of fever. Patient is very little urine output. Previous medical record reviewed and patient was admitted here and had a negative stress test on May 01. MD Complaint: chest pain -: Gradual, Last night Onset: during rest Pain Location: left chest Pain Radiation: none Severity scale (0 -10): 9 Quality: tightness, other (burning) Consistency: constant Improves With: nothing Worsens With: nothing Context: other (frequent ed vists for cp/abd pain) re: nausea, dyspnea (earlier, none now). denies: vomting, diaphoresis Other Symptoms: denies: cough, fever, syncope Treatments Prior to Arrival: none - Related Data Home Medications Medication Instructions Recorded Confirmed Last Taken Aspirin EC [Aspirin Enteric Coated 81 mg PO QDAY 05/07/17 05/07/17 Unknown TAB] AtorvaSTATin [Lipitor] 80 mg PO QHS 05/07/17 05/07/17 Unknown Carvedilol [Coreg] 12.5 mg PO BID 05/07/17 05/07/17 Unknown Clopidogrel [Plavix] 75 mg PO QDAY 05/07/17 05/07/17 Unknown Lisinopril [Zestril] 20 mg PO QDAY 05/07/17 05/07/17 Unknown Previous Rx's Medication Instructions Recorded Last Taken Type traMADol [Ultram 50 MG tab] 50 mg PO BID PRN #30 tablet 05/07/17 Unknown Rx Allergies Allergy/AdvReac Type Severity Reaction Status Date / Time No Known Allergies Allergy Verified 12/09/13 08:59 Heart Score - HEART Score History: Slightly suspicious EKG: Normal Age: > 65 Risk factors: > 3 risk factors or hx of atherosclerotic disease Troponin: 1-3x normal limit (chronic elevation) HEART Score: 5 ED Review of Systems ROS: Stated complaint: CHEST PAIN Other details as noted in HPI Comment: All other systems reviewed and negative Other: Constitutional: No fevers chills Eyes: No eye pain visual changes ENT: No ear pain or throat pain Neck: Denies pain Respiratory: As per HPI Cardiovascular: Denies palpitations, syncope GI: As per HPI : As per HPI Musculoskeletal: Denies back pain, joint swelling Skin: Denies rash, lesions, erythema Neurologic: Denies headache, numbness, weakness Psychiatric: Denies suicidal ideation, hallucinations ED Past Medical Hx - Past Medical History Hx Hypertension: Yes Hx CVA: Yes (x 2) Hx Congestive Heart Failure: Yes Hx Diabetes: Yes Hx GERD: Yes Hx Liver Disease: Yes (LESION) Hx Renal Disease: Yes (ESRD/dialysis M, W, F) Hx Arthritis: Yes Hx Asthma: Yes Hx COPD: No Additional medical history: enlarged heart, gout - Surgical History Hx Coronary Stent: Yes Hx Appendectomy: Yes Additional Surgical History: tubal ligation, vas cath. LUE fistula. cardiac workup includes a stress test on 12/21/2016 that was unremarkable. Patient status post PCI of RCA with subsequent subacute thrombus of the proximal RCA stent and angioplasty with resolution of thrombosis on November 2016. PCI 03/22/17 of RCA. 05/01/17 neg Lexiscan stress - Social History Smoking Status: Current Every Day Smoker Substance Use Type: Alcohol - Medications Home Medications: Home Medications Medication Instructions Recorded Confirmed Last Taken Type Aspirin EC [Aspirin Enteric Coated 81 mg PO QDAY 05/07/17 05/07/17 Unknown History TAB] AtorvaSTATin [Lipitor] 80 mg PO QHS 05/07/17 05/07/17 Unknown History Carvedilol [Coreg] 12.5 mg PO BID 05/07/17 05/07/17 Unknown History Clopidogrel [Plavix] 75 mg PO QDAY 05/07/17 05/07/17 Unknown History Lisinopril [Zestril] 20 mg PO QDAY 05/07/17 05/07/17 Unknown History traMADol [Ultram 50 MG tab] 50 mg PO BID PRN #30 tablet 08/21/17 Unknown Rx ED Physical Exam - General Limitations: No Limitations - Other Other exam information: General: No limitations, patient is alert in no acute distress Head exam: Atraumatic, normocephalic Eyes exam: Normal appearance, pupils equal reactive to light, extraocular movements intact ENT: Moist mucous membrane, normal oropharynx Neck exam: Normal inspection, full range of motion, no meningismus nontender Respiratory exam: Clear to auscultation bilateral, no wheezes, rales, crackles, mild chest wall tenderness midline into the left Cardiovascular: Normal rate and rhythm, normal heart sounds Abdomen: Soft, nondistended, lower abdominal tenderness, with normal bowel sounds, no rebound, or guarding Extremity: Full range of motion normal inspection no deformity, no calf tenderness Back: Normal Inspection, full range of motion, no tenderness Neurologic: Alert, oriented x3, cranial nerves intact, no motor or sensory deficit Psychiatric: normal affect, normal mood Skin: Warm, dry, intact ED Course Vital Signs 05/07/17 05/07/17 05/07/17 11:12 11:15 11:25 Temperature 98.5 F Pulse Rate 85 Respiratory 17 Rate Blood Pressure 178/71 178/71 Blood Pressure [Right] O2 Sat by Pulse 94 93 95 Oximetry 05/07/17 05/07/17 05/07/17 11:30 11:32 11:45 Temperature Pulse Rate 86 89 Respiratory 16 16 20 Rate Blood Pressure 164/67 164/67 Blood Pressure [Right] O2 Sat by Pulse 96 94 Oximetry 05/07/17 05/07/17 05/07/17 12:00 12:15 12:18 Temperature Pulse Rate 85 85 87 Respiratory 25 H 20 Rate Blood Pressure 165/71 165/71 165/71 Blood Pressure [Right] O2 Sat by Pulse 100 96 Oximetry 05/07/17 05/07/17 05/07/17 13:16 13:30 14:39 Temperature Pulse Rate Respiratory Rate Blood Pressure 150/65 158/68 150/65 Blood Pressure [Right] O2 Sat by Pulse 96 95 Oximetry 05/07/17 05/07/17 05/07/17 14:45 15:00 15:15 Temperature Pulse Rate Respiratory Rate Blood Pressure 155/65 158/66 158/68 Blood Pressure [Right] O2 Sat by Pulse 96 84 92 Oximetry 05/07/17 05/07/17 05/07/17 15:30 15:45 16:00 Temperature Pulse Rate Respiratory Rate Blood Pressure 160/60 160/60 158/102 Blood Pressure [Right] O2 Sat by Pulse 93 98 98 Oximetry 05/07/17 05/07/17 05/07/17 16:15 16:31 16:45 Temperature Pulse Rate Respiratory Rate Blood Pressure 158/102 158/102 162/73 Blood Pressure [Right] O2 Sat by Pulse 99 100 95 Oximetry 05/07/17 05/07/17 05/07/17 17:00 17:15 17:30 Temperature Pulse Rate Respiratory Rate Blood Pressure 170/69 170/69 172/78 Blood Pressure [Right] O2 Sat by Pulse 100 98 97 Oximetry 05/07/17 17:36 Temperature 98.4 F Pulse Rate 87 Respiratory 16 Rate Blood Pressure Blood Pressure 172/74 [Right] O2 Sat by Pulse 99 Oximetry - Reevaluation(s) Reevaluation #1: 05/07/17 17:57 ED stay patient required multiple doses of pain medication for headache ( started after nitroglycerin nitroglycerin has since been removed), chest pain and abdominal pain. - Consultations Consultation #1: 05/07/17 12:03 case d/w Teresa Roberts, will consult on pt (card) after consulation states cleared by cards if 2nd trop unchanged 05/07/17 16:26 case d/w Emelina Alvarenga, pt may come tomorrow at 1 pm to dialysis clinic JACQUES score - Jacques Score Age > 65: (1) Yes Aspirin use within the Past 7 Days: (1) Yes 3 or more CAD Risk Factors: (1) Yes 2 or more Angina events in past 24 hrs: (0) No Known CAD with more than 50% Stenosis: (1) Yes Elevated Cardiac Markers: (1) Yes ST Deviation Greater than 0.5mm: (0) No JACQUES Score: 5 ED Medical Decision Making - Lab Data Result diagrams: 05/07/17 11:57 05/07/17 11:57 Lab Results 05/07/17 05/07/17 05/07/17 Range/Units 11:57 11:57 11:57 WBC 6.5 (4.5-11.0) K/mm3 RBC 3.16 L (3.65-5.03) M/mm3 Hgb 9.7 L (10.1-14.3) gm/dl Hct 29.7 L (30.3-42.9) % MCV 94 (79-97) fl MCH 31 (28-32) pg MCHC 33 (30-34) % RDW 20.5 H (13.2-15.2) % Plt Count 328 (140-440) K/mm3 Lymph % (Auto) 32.3 (13.4-35.0) % [place] % (Auto) 10.0 H (0.0-7.3) % Eos % (Auto) 0.9 (0.0-4.3) % Baso % (Auto) 0.3 (0.0-1.8) % Lymph # 2.1 (1.2-5.4) K/mm3 [place] # 0.7 (0.0-0.8) K/mm3 Eos # 0.1 (0.0-0.4) K/mm3 Baso # 0.0 (0.0-0.1) K/mm3 Seg Neutrophils % 56.5 (40.0-70.0) % Seg Neutrophils # 3.7 (1.8-7.7) K/mm3 PT (12.2-14.9) Sec. INR (0.87-1.13) APTT (24.2-36.6) Sec. D-Dimer (0-234) ng/mlDDU Sodium 141 (137-145) mmol/L Potassium 4.0 (3.6-5.0) mmol/L Chloride 92.0 L (98-107) mmol/L Carbon Dioxide 31 H (22-30) mmol/L Anion Gap 22 mmol/L BUN 54 H (7-17) mg/dL Creatinine 9.7 H (0.7-1.2) mg/dL Estimated GFR 5 ml/min BUN/Creatinine Ratio 5.56 % Glucose 80 (65-100) mg/dL Calcium 9.2 (8.4-10.2) mg/dL Total Bilirubin (0.1-1.2) mg/dL Direct Bilirubin (0-0.2) mg/dL Indirect Bilirubin mg/dL AST (5-40) units/L ALT (7-56) units/L Alkaline Phosphatase (35-129) units/L Total Creatine Kinase 38 (30-135) units/L CK-MB (CK-2) 1.8 (0.0-4.0) ng/mL CK-MB (CK-2) Rel Index 4.7 H (0-4) Troponin T 0.092 H (0.00-0.029) ng/mL Total Protein (6.3-8.2) g/dL Albumin (3.9-5) g/dL Albumin/Globulin Ratio % Lipase (13-60) units/L 05/07/17 05/07/17 05/07/17 Range/Units 11:57 11:57 16:50 WBC (4.5-11.0) K/mm3 RBC (3.65-5.03) M/mm3 Hgb (10.1-14.3) gm/dl Hct (30.3-42.9) % MCV (79-97) fl MCH (28-32) pg MCHC (30-34) % RDW (13.2-15.2) % Plt Count (140-440) K/mm3 Lymph % (Auto) (13.4-35.0) % [place] % (Auto) (0.0-7.3) % Eos % (Auto) (0.0-4.3) % Baso % (Auto) (0.0-1.8) % Lymph # (1.2-5.4) K/mm3 [place] # (0.0-0.8) K/mm3 Eos # (0.0-0.4) K/mm3 Baso # (0.0-0.1) K/mm3 Seg Neutrophils % (40.0-70.0) % Seg Neutrophils # (1.8-7.7) K/mm3 PT 14.2 (12.2-14.9) Sec. INR 1.05 (0.87-1.13) APTT 32.4 (24.2-36.6) Sec. D-Dimer 268.39 H (0-234) ng/mlDDU Sodium (137-145) mmol/L Potassium (3.6-5.0) mmol/L Chloride (98-107) mmol/L Carbon Dioxide (22-30) mmol/L Anion Gap mmol/L BUN (7-17) mg/dL Creatinine (0.7-1.2) mg/dL Estimated GFR ml/min BUN/Creatinine Ratio % Glucose (65-100) mg/dL Calcium (8.4-10.2) mg/dL Total Bilirubin 0.60 (0.1-1.2) mg/dL Direct Bilirubin < 0.2 (0-0.2) mg/dL Indirect Bilirubin 0.4 mg/dL AST 15 (5-40) units/L ALT 14 (7-56) units/L Alkaline Phosphatase 96 (35-129) units/L Total Creatine Kinase (30-135) units/L CK-MB (CK-2) (0.0-4.0) ng/mL CK-MB (CK-2) Rel Index (0-4) Troponin T 0.098 H (0.00-0.029) ng/mL Total Protein 6.6 (6.3-8.2) g/dL Albumin 3.5 L (3.9-5) g/dL Albumin/Globulin Ratio 1.1 % Lipase 60 (13-60) units/L - EKG Data -: EKG Interpreted by Me (sinus rhythm rate 84 LVH with repoll) - EKG Data When compared to previous EKG there are: no significant change (compared to ) - Radiology Data Radiology results: report reviewed (chest x-ray: Mild cardiomegaly, minimal congestion) - Medical Decision Making Patient was again presents with combination of chest pain and abdominal pain. No acute abnormality identified. Cardiac enzymes stable 2. CT abdomen and pelvis report reveal patient does not have any symptoms of active colitis. Patient was cleared by cardiology. He Q scan was negative. Dialysis arranged for 1 PM tomorrow as an outpatient - Differential Diagnosis CHF, KS, chronic pain, costochondritis, diverticulitis Critical Care Time: No Critical care attestation.: If time is entered above; I have spent that time in minutes in the direct care of this critically ill patient, excluding procedure time. ED Disposition Clinical Impression: Atypical chest pain, ESRD on dialysis Abdominal pain Qualifiers: Abdominal location: generalized Qualified Code(s): R10.84 - Generalized abdominal pain Disposition: TO HOME OR SELFCARE Is pt being admited?: No Does the pt Need Aspirin: No Condition: Stable Instructions: Chest Pain (ED), Abdominal Pain (ED), End-Stage Kidney Disease ( ED) Additional Instructions: Take the medication as needed for pain. Follow-up with your doctor within 2-3 days. Go to your dialysis center tomorrow at 1 PM to receive your dialysis. Prescriptions: traMADol [Ultram 50 MG tab] 50 mg PO BID PRN #30 tablet PRN Reason: Pain Referrals: PRIMARY CARE, [Primary Care Provider] - 2-3 Days Time of Disposition: 19:06
[2017-05-07] MEDS ORDERED: ZOFRAN IV ONE (11:58)
[2017-05-07] MEDS ORDERED: MORPHINE IV ONE (11:58)
[2017-05-07] MEDS ORDERED: NITRO-BID 2% TP ONE (11:58)
--- NOTE | 2017-05-07 12:09 | XRay Report ---
PORTABLE CHEST INDICATION: Chest pain. COMPARISON: 05/01/2017 FINDINGS: Portable, frontal chest radiograph demonstrates stable mild cardiomegaly and aortic calcifications. Minimal fluid or thickening along the right minor fissure now noted with slightly prominent lung markings centrally, possibly congestive. No significant pleural effusions or overt CHF. EKG leads. Stable bones. CONCLUSION: Mild cardiomegaly again noted with minimal congestion possible, as described. Please correlate. Thank you for the opportunity to participate in this patient's care.
[2017-05-07 12:31] LABS: Basophils % (Auto) 0.3 % (0.0-1.8); Eosinophils % (Auto) 0.9 % (0.0-4.3); Hematocrit 29.7 % (30.3-42.9); Hemoglobin 9.7 gm/dl (10.1-14.3); Mean Corpuscular HGB Conc 33 % (30-34); Mean Corpuscular Hemoglobin 31 pg (28-32); Mean Corpuscular Volume 94 fl (79-97); Platelet Count 328 K/mm3 (140-440); Red Blood Count 3.16 M/mm3 (3.65-5.03); White Blood Count 6.5 K/mm3 (4.5-11.0)
[2017-05-07 12:36] LABS: BUN/Creatinine Ratio 5.56; Calcium 9.2 mg/dL (8.4-10.2)
[2017-05-07 12:38] LABS: Creatine Kinase MB 1.8 ng/mL (0.0-4.0)
[2017-05-07 12:41] LABS: INR 1.05 (0.87-1.13)
[2017-05-07 12:42] LABS: Partial Thromboplastin Time 32.4 Sec. (24.2-36.6)
[2017-05-07 12:45] LABS: Red Cell Distribution Width 20.5 % (13.2-15.2)
[2017-05-07 12:49] LABS: Alanine Aminotransferase 14 units/L (7-56); Albumin 3.5 g/dL (3.9-5); Total Protein 6.6 g/dL (6.3-8.2)
[2017-05-07 12:50] LABS: Albumin/Globulin Ratio 1.1 %; Alkaline Phosphatase 96 units/L (35-129); Lipase 60 units/L (13-60)
--- NOTE | 2017-05-07 12:50 | Consultation ---
History of Present Illness Consult date: 05/07/17 Requesting physician: DRISS CUNNINGHAM Consult reason: chest pain History of present illness: The patient is a 66 YO female with a past medical history significant for CAD, s /p PCI (PCI of RCA in 08/2016 with subsequent subacute thrombus of the proximal RCA stent and balloon angioplasty with resolution of thrombus on 11/28/2016, s/p additional PCI of RCA on 03/22/2017 @ [facility]), ESRD on HD, HTN, PVD, recurrent chest pain, and tobacco use. She is followed in our office by Dr. Ford. She is a rather poor historian. She presented with c/o intermittent substernal chest tightness and diffuse abdominal pain that started this AM. The pain awoke her from sleep. Associated with mild shortness of breath. No exacerbating or relieving factors. First troponin is 0.079; ECG with NAF; DDimer 268; abdomen/ pelvis CT pending. She states that she has been compliant with all of her medications. Past History Past Medical History: CAD, dialysis, ESRD, hypertension, PVD Past Surgical History: Other (PCI) Social history: smoking. denies: alcohol abuse, prescription drug abuse Family history: no significant family history Medications and Allergies Allergies Allergy/AdvReac Type Severity Reaction Status Date / Time No Known Allergies Allergy Verified 12/09/13 08:59 Home Medications Medication Instructions Recorded Confirmed Last Taken Type Aspirin EC [Aspirin Enteric Coated 81 mg PO QDAY 05/07/17 05/07/17 Unknown History TAB] AtorvaSTATin [Lipitor] 80 mg PO QHS 05/07/17 05/07/17 Unknown History Carvedilol [Coreg] 12.5 mg PO BID 05/07/17 05/07/17 Unknown History Clopidogrel [Plavix] 75 mg PO QDAY 05/07/17 05/07/17 Unknown History Lisinopril [Zestril] 20 mg PO QDAY 05/07/17 05/07/17 Unknown History Review of Systems Constitutional: no weight loss, no weight gain, no fever, no chills, no sweats Ears, nose, mouth and throat: no ear pain, no nose pain, no sinus pressure, no sinus pain Cardiovascular: chest pain, shortness of breath, no orthopnea, no palpitations, no rapid/irregular heart beat, no edema, no syncope, no lightheadedness, no paroxysmal nocturnal dyspnea, no leg edema Respiratory: shortness of breath, no cough, no congestion, no wheezing, no pain on inspiration Gastrointestinal: abdominal pain, nausea, no vomiting, no diarrhea, no constipation, no change in bowel habits Genitourinary Female: no pelvic pain, no flank pain, no dysuria, no urinary frequency, no urgency Musculoskeletal: no neck stiffness, no neck pain, no shooting arm pain, no arm numbness/tingling, no low back pain, no shooting leg pain, no leg numbness/ tingling, no redness of joints Integumentary: no rash, no pruritis, no redness, no sores, no wounds Neurological: no head injury, no paralysis, no weakness, no parathesias, no numbness, no tingling, no seizures, no syncope Psychiatric: no anxiety Endocrine: no cold intolerance, no heat intolerance Hematologic/Lymphatic: no easy bruising, no easy bleeding, no lymphadenopathy Allergic/Immunologic: no urticaria, no wheezing, no persistent infections Physical Examination Vital Signs Pulse Ox 94 05/07/17 11:12 General appearance: no acute distress HEENT: Positive: PERRL, Jaundice, Mucus Membranes Moist Neck: Positive: neck supple, trachea midline Cardiac: Positive: Reg Rate and Rhythm, S1/S2 Lungs: Positive: clear to auscultation Neuro: Positive: Grossly Intact, Cranial Nerve 2-12 Intact Abdomen: Positive: Soft, Active Bowel Sounds, Tender (generalized) Skin: Positive: Clear. Negative: Rash, Wound Musculoskeletal: No Fluid Collection, No Pain, Normal Range of Motion Extremities: Absent: edema Results 05/07/17 11:57 05/07/17 11:57 Cardiac Enzymes 05/07/17 Range/Units 11:57 CK-MB (CK-2) 1.8 (0.0-4.0) ng/mL Coagulation 05/07/17 Range/Units 11:57 PT 14.2 (12.2-14.9) Sec. INR 1.05 (0.87-1.13) APTT 32.4 (24.2-36.6) Sec. CBC 05/07/17 Range/Units 11:57 WBC 6.5 (4.5-11.0) K/mm3 RBC 3.16 L (3.65-5.03) M/mm3 Hgb 9.7 L (10.1-14.3) gm/dl Hct 29.7 L (30.3-42.9) % Plt Count 328 (140-440) K/mm3 Lymph # 2.1 (1.2-5.4) K/mm3 [place] # 0.7 (0.0-0.8) K/mm3 Eos # 0.1 (0.0-0.4) K/mm3 Baso # 0.0 (0.0-0.1) K/mm3 Comprehensive Metabolic Panel 05/07/17 Range/Units 11:57 Sodium 141 (137-145) mmol/L Potassium 4.0 (3.6-5.0) mmol/L Chloride 92.0 L (98-107) mmol/L Carbon Dioxide 31 H (22-30) mmol/L BUN 54 H (7-17) mg/dL Creatinine 9.7 H (0.7-1.2) mg/dL Glucose 80 (65-100) mg/dL Calcium 9.2 (8.4-10.2) mg/dL - Imaging and Cardiology Echo: report reviewed (11/2016: EF 35-40%, mild LVH) EKG: image reviewed EKG interpretations - Telemetry EKG Rhythm: Sinus Rhythm - EKG Sinus rhythms and dysrhythmias: sinus rhythm Ventricular dysrhythmias: ventricular premature com Assessment and Plan Assessment: Recurrent atypical chest pain - negative lexiscan MPI stress test on 05/02/2017. CAD, s/p PCI Elevated troponin - chronically mildly elevated in setting of ESRD; unchanged from prior admission; ECG with NAF. CMP - EF 35-30% on echo 11/2016 ESRD on HD HTN PVD Tobacco use Plan: ECG with NAF, Chris pending. Await abdomen/pelvis CT. Consider further imaging to r/o PE per primary team. No current plans for any further cardiac evaluation/management at this time. Cont to trend Chris. If troponin remains negative x 2 sets, the pt may discharge home from cardiology standpoint. Recommend follow up in our office with Amanda Spicer NP, within 1-2 weeks of hospital discharge ([phone]). Assessment and plan reviewed with pt at bedside. The patient has been seen in conjunction with Dr. Ford who agrees with the assessment and plan of care.
--- NOTE | 2017-05-07 13:06 | Cat Scan Report ---
CT ABDOMEN AND PELVIS WITHOUT CONTRAST INDICATION: Generalized abdominal pain, most lower. COMPARISON: 03/13/2017 FINDINGS: Noncontrast abdomen and pelvis CT performed. LUNG BASES: Cardiomegaly again noted, slightly more prominent. Stable atherosclerotic coronary and aortic calcifications. Mild left lower lung atelectasis or scarring. Nonspecific distal esophageal wall prominence/thickening, not excluded for gastroesophageal reflux and/or hiatal hernia, amongst others. ABDOMEN: Please note that sensitivity to detect small visceral lesions is limited due to the absence of intravenous or oral contrast. Left hepatic lobe tip again approaches the spleen in the left upper quadrant. Otherwise grossly unremarkable unenhanced liver, spleen, gallbladder, pancreas, adrenals and IVC. Nonaneurysmal abdominal aorta with extensive atherosclerotic aortoiliac calcifications. Stable atrophic, nonhydronephrotic bilateral kidneys with approximately 6 mm right interpolar cortical hypodensity/cyst and a small 2 mm nonobstructing right upper pole calculus. No ascites or size significant adenopathy. Nonopacified GI tract evaluation limited, though grossly non-obstructive. Mild colonic stool. Few descending colon diverticuli. PELVIS: Few pelvic small bowel loops anteriorly air-filled and approximately 1.8 cm in caliber, axial image 234, series 2. Few uterine calcifications appear vascular, though subtle fibroids not entirely excluded. Non-opacified urinary bladder suboptimally distended and assessed. Mild sigmoid diverticulosis with subtle fat stranding again questioned as on axial images 227-247, series 2. No free fluid or significant adenopathy. Mild diffuse subcutaneous stranding/edema. Approximately 5 mm anterolisthesis of L5 over S1 again noted with severe disc narrowing with endplate irregularities/Schmorl's nodes, sclerosis and mild degenerative spurring. Mid to lower lumbar facet arthropathy, lower thoracic spine degenerative spurring and mild endplate irregularities or Schmorl's nodes at few other levels also noted. Mild bilateral hip degenerative changes as well. CONCLUSION: No significant interval change on this limited, unenhanced exam with various incidental findings, as above. Subtle/occult colitis or sigmoid diverticulitis may again be considered clinically in an appropriate setting. Please correlate. Thank you for the opportunity to participate in this patient's care.
[2017-05-07 13:19] LABS: Bilirubin,Direct < 0.2 mg/dL (0-0.2); Bilirubin,Indirect 0.4 mg/dL
[2017-05-07] MEDS ORDERED: DILAUDID ONE (14:55)
[2017-05-07] MEDS ORDERED: DILAUDID IV ONE (14:59)
--- NOTE | 2017-05-07 15:49 | Nuclear Medicine Report ---
LUNG SCAN, VENTILATION AND PERFUSION: History: Chest pain. Technique: 5mci of Tc99m MAA was infused for the perfusion images. 15mci XE 133 gas was inhaled for the ventilatory images. Correlation is made with a chest x-ray dated 05/07/17. Findings: Inhalation of Xenon gas demonstrates a normal distribution of the activity throughout both lungs. The wash out phases show no focal retention of activity. After injection of Technetium 99m macroaggregated albumin gamma camera imaging of the lungs in multiple projections demonstrates normal pulmonary contours with a homogeneous distribution of activity. No focal areas of perfusion deficiency are identified. IMPRESSION: Low probability for pulmonary embolus.
[2017-05-07] MEDS ORDERED: TYLENOL ONE (17:48)
[2017-05-07 17:51] VITALS: BP 172/78
[2017-05-07] MEDS ORDERED: TYLENOL PO ONE (17:52)
[2017-05-07] MEDS ORDERED: PERCOCET 5/325 PO ONE (19:12)
== END 2017-05-07 20:04 | disposition home or self-care (01) ==
LOC: ED 11:12
DX: N18.6 End stage renal disease (principal); R07.89 Other chest pain; E11.22 Type 2 diabetes mellitus with diabetic chronic kidney disease; I12.0 Hypertensive chronic kidney disease with stage 5 chronic kidney disease or end stage renal disease; Z99.2 Dependence on renal dialysis
CPT/HCPCS: 36415; 71010; 74176; 78582; 80048; 80074; 82550; 82553; 83690; 84484; 85025; 85379; 85610; 85730; 93005; 93010; 96374; 96375; 99285; A9540; A9558; J1170; J2270; J2405

== ENCOUNTER 2017-05-12 14:47 | Inpatient (IN) | payer MEDICARE ==
[2017-05-12 16:20] LABS: Basophils % (Auto) 0.7 % (0.0-1.8); Eosinophils % (Auto) 0.1 % (0.0-4.3); Hematocrit 32.6 % (30.3-42.9); Hemoglobin 10.6 gm/dl (10.1-14.3); Mean Corpuscular HGB Conc 33 % (30-34); Mean Corpuscular Hemoglobin 30 pg (28-32); Mean Corpuscular Volume 93 fl (79-97); Platelet Count 342 K/mm3 (140-440); Red Blood Count 3.49 M/mm3 (3.65-5.03); Red Cell Distribution Width 19.1 % (13.2-15.2)
[2017-05-12 16:37] LABS: Albumin 3.5 g/dL (3.9-5); BUN/Creatinine Ratio 5.1; Bilirubin,Total 0.4 mg/dL (0.1-1.2); Calcium 9.3 mg/dL (8.4-10.2); Chloride 91.7 mmol/L (98-107); Potassium 4.2 mmol/L (3.6-5.0)
[2017-05-12] MEDS ORDERED: ALUM-MAG HYDROX-SIMETH 200-200-20MG/5ML PO ONE (17:08)
[2017-05-12] MEDS ORDERED: PEPCID IV ONE (17:08)
[2017-05-12] MEDS ORDERED: LIDOCAINE VISCOUS 2% PO ONE (17:08)
[2017-05-12] MEDS ORDERED: ZOFRAN IV ONE (17:08)
[2017-05-12] MEDS ORDERED: DILAUDID IV ONE (17:08)
--- NOTE | 2017-05-12 17:36 | XRay Report ---
FINAL REPORT EXAM: XR CHEST 1V AP HISTORY: Chest Pain TECHNIQUE: Single-view chest PRIORS: Chest radiograph from 10/02/2016 FINDINGS: Faint interlobular septal lines are seen along the lateral margin of the right lung. There is subtle patchy opacity in the right upper lobe and medial aspect of the right lung base. Heart is enlarged. No acute osseous abnormality is identified. IMPRESSION: 1. Interlobular septal lines are noted consistent with developing interstitial edema. 2. Subtle patchy opacity in the right upper lobe and right lung base may indicate developing edema. Possibility of infection is not excluded. 3. Cardiomegaly.
--- NOTE | 2017-05-12 17:38 | Emergency Department Report ---
ED Chest Pain HPI - General Chief Complaint: Chest Pain Stated Complaint: ENRIQUE Time Seen by Provider: 05/12/17 16:49 Source: patient, EMS, old records reviewed (cardiac stress test 05/02/2017) Mode of arrival: Stretcher Limitations: No Limitations - History of Present Illness Initial Comments: 66-year-old female with past medical history CHF, asthma, end-stage renal disease on dialysis Sunday, Wednesdays, and Sunday, CVA 2, diabetes, GERD, hypertension, CAD with stent placement, multiple ED visits for chest pain and abdominal pain presents to the Hospital complaints of chest pain and abdominal pain. Symptoms started last night. Patient complains of lower bilateral chest and epigastric pain described as a tightness that is intermittent. With palpation. Patient has shortness of breath at 3 AM causing her to wake up from her sleep. She also plays a lower abdominal pain and unable to characterize this pain only just stating that it is rated 8/10 in intensity. Patient denies nausea, vomiting, or diarrhea. Last bowel movement today was normal. She complains of a frontal headache. Patient has had multiple ED visits for same and last seen by me on 05/07/2017 with the "same symptoms". At that time patient had an unremarkable CT abdomen and pelvis, negative V/Q chest for PE, and received bedside cardiology consultation and advised that no cardiac intervention recommended at this time if second enzyme was negative. Patient was discharged home on tramadol which she states does help her pain. Last dialysis was yesterday. Severity scale (0 -10): 9 - Related Data Home Medications Medication Instructions Recorded Confirmed Last Taken Aspirin EC [Aspirin Enteric Coated 81 mg PO QDAY 05/07/17 05/12/17 1 Day Ago TAB] AtorvaSTATin [Lipitor] 80 mg PO QHS 05/07/17 05/12/17 1 Day Ago Carvedilol [Coreg] 12.5 mg PO BID 05/07/17 05/12/17 1 Day Ago Clopidogrel [Plavix] 75 mg PO QDAY 05/07/17 05/12/17 1 Day Ago Lisinopril [Zestril] 20 mg PO QDAY 05/07/17 05/12/17 05/04/17 18:00 Previous Rx's Medication Instructions Recorded Last Taken Type traMADol [Ultram 50 MG tab] 50 mg PO BID PRN #30 tablet 05/07/17 1 Day Ago Rx Allergies Allergy/AdvReac Type Severity Reaction Status Date / Time No Known Allergies Allergy Verified 12/09/13 08:59 Heart Score - HEART Score History: Slightly suspicious EKG: Non-specific Age: > 65 Risk factors: > 3 risk factors or hx of atherosclerotic disease Troponin: 1-3x normal limit HEART Score: 6 ED Review of Systems ROS: Stated complaint: ENRIQUE Other details as noted in HPI Comment: All other systems reviewed and negative Other: General: No fever or chills Eyes: No blurry vision or discharge HEENT: No throat pain Neck: No pain Respiratory: No wheezing, or coughing Cardiovascular: No palpitations, or syncope GI: No abdominal pain, nausea, vomiting, diarrhea, melena, or hematochezia Musculoskeletal: No back pain, no joint swelling Neurologic: Denies focal weakness, or focal numbness Psychiatric: Denies hallucinations, suicidal ideation, homicidal ideation Skin: No rash or lesions ED Past Medical Hx - Past Medical History Hx Hypertension: Yes Hx CVA: Yes (x 2) Hx Congestive Heart Failure: Yes Hx Diabetes: Yes Hx GERD: Yes Hx Liver Disease: Yes (LESION) Hx Renal Disease: Yes (ESRD/dialysis M, W, F) Hx Arthritis: Yes Hx Asthma: Yes Hx COPD: No Additional medical history: enlarged heart, gout - Surgical History Hx Coronary Stent: Yes Hx Appendectomy: Yes Additional Surgical History: tubal ligation, vas cath. LUE fistula. cardiac workup includes a stress test on 12/21/2016 that was unremarkable. Patient status post PCI of RCA with subsequent subacute thrombus of the proximal RCA stent and angioplasty with resolution of thrombosis on November 2016. PCI 03/22/17 of RCA. 05/01/17 neg Lexiscan stress - Social History Smoking Status: Current Every Day Smoker Substance Use Type: None - Medications Home Medications: Home Medications Medication Instructions Recorded Confirmed Last Taken Type Aspirin EC [Aspirin Enteric Coated 81 mg PO QDAY 05/07/17 05/12/17 1 Day Ago History TAB] AtorvaSTATin [Lipitor] 80 mg PO QHS 05/07/17 05/12/17 1 Day Ago History Carvedilol [Coreg] 12.5 mg PO BID 05/07/17 05/12/17 1 Day Ago History Clopidogrel [Plavix] 75 mg PO QDAY 05/07/17 05/12/17 1 Day Ago History Lisinopril [Zestril] 20 mg PO QDAY 05/07/17 05/12/17 05/04/17 18:00 History traMADol [Ultram 50 MG tab] 50 mg PO BID PRN #30 tablet 05/07/17 05/12/17 1 Day Ago Rx ED Physical Exam - General Limitations: No Limitations - Other Other exam information: General: No acute distress, Head: Atraumatic, normocephalic Eyes: Normal appearance, pupils equal and reactive to light, extraocular movements intact HEENT: Moist mucous membranes, normal oropharynx Neck: Full range of motion, normal inspection, no midline tenderness CV: Regular rate and rhythm Respiratory: minimum basilar crackles, no tachypnea or accessory muscle use Abdomen: Soft, nondistended, epigastric tenderness and right upper quadrant/ left upper quadrant tenderness, mild suprapubic tenderness, normal bowel sounds , no rebound or guarding Extremities: Full range of motion, no deformity, no calf tenderness or edema Back: Normal inspection, nontender, full range of motion Neurologic: Alert and oriented 3, cranial nerves grossly intact, no motor or sensory deficit Psychiatric: Normal mood and affect ED Course Vital Signs 05/12/17 05/12/17 05/12/17 15:16 15:20 15:25 Temperature 98.8 F Pulse Rate 101 H Respiratory 20 Rate Blood Pressure Blood Pressure 195/95 [Right] O2 Sat by Pulse 91 92 Oximetry 05/12/17 05/12/17 05/12/17 15:30 15:45 16:00 Temperature Pulse Rate Respiratory Rate Blood Pressure 192/95 192/95 188/90 Blood Pressure [Right] O2 Sat by Pulse 96 96 95 Oximetry 05/12/17 05/12/17 05/12/17 16:15 16:21 16:28 Temperature Pulse Rate 101 H Respiratory Rate Blood Pressure 192/95 Blood Pressure [Right] O2 Sat by Pulse 94 97 Oximetry 05/12/17 05/12/17 16:30 16:45 Temperature Pulse Rate 95 H Respiratory Rate Blood Pressure 198/100 198/100 Blood Pressure [Right] O2 Sat by Pulse 94 94 Oximetry - Reevaluation(s) Reevaluation #1: 05/12/17 17:39 Medications ordered 05/12/17 17:44 Initial room air sat 91% increasing to 97% on 2 L - Consultations Consultation #1: 05/12/17 18:[address] Todd office services coordinator. He agrees with admission plan and will consult to perform dialysis MONE score - Mone Score Age > 65: (1) Yes Aspirin use within the Past 7 Days: (1) Yes 3 or more CAD Risk Factors: (1) Yes 2 or more Angina events in past 24 hrs: (0) No Known CAD with more than 50% Stenosis: (1) Yes Elevated Cardiac Markers: (1) Yes ST Deviation Greater than 0.5mm: (0) No MONE Score: 5 ED Medical Decision Making - Lab Data Result diagrams: 05/12/17 15:59 05/12/17 15:59 Lab Results 05/12/17 05/12/17 Range/Units 15:59 15:59 WBC 7.0 (4.5-11.0) K/mm3 RBC 3.49 L (3.65-5.03) M/mm3 Hgb 10.6 (10.1-14.3) gm/dl Hct 32.6 (30.3-42.9) % MCV 93 (79-97) fl MCH 30 (28-32) pg MCHC 33 (30-34) % RDW 19.1 H (13.2-15.2) % Plt Count 342 (140-440) K/mm3 Lymph % (Auto) 22.5 (13.4-35.0) % [place] % (Auto) 11.6 H (0.0-7.3) % Eos % (Auto) 0.1 (0.0-4.3) % Baso % (Auto) 0.7 (0.0-1.8) % Lymph # 1.6 (1.2-5.4) K/mm3 [place] # 0.8 (0.0-0.8) K/mm3 Eos # 0.0 (0.0-0.4) K/mm3 Baso # 0.0 (0.0-0.1) K/mm3 Seg Neutrophils % 65.1 (40.0-70.0) % Seg Neutrophils # 4.6 (1.8-7.7) K/mm3 Sodium 141 (137-145) mmol/L Potassium 4.2 (3.6-5.0) mmol/L Chloride 91.7 L (98-107) mmol/L Carbon Dioxide 31 H (22-30) mmol/L Anion Gap 23 mmol/L BUN 48 H (7-17) mg/dL Creatinine 9.4 H (0.7-1.2) mg/dL Estimated GFR 5 ml/min BUN/Creatinine Ratio 5.10 % Glucose 102 H (65-100) mg/dL Calcium 9.3 (8.4-10.2) mg/dL Total Bilirubin 0.40 (0.1-1.2) mg/dL AST 12 (5-40) units/L ALT 13 (7-56) units/L Alkaline Phosphatase 123 (35-129) units/L Troponin T 0.182 H* D (0.00-0.029) ng/mL Total Protein 7.0 (6.3-8.2) g/dL Albumin 3.5 L (3.9-5) g/dL Albumin/Globulin Ratio 1.0 % - EKG Data -: EKG Interpreted by Me (sinus rhythm 98 with PVCs) - EKG Data When compared to previous EKG there are: no significant change (compared to ) - Radiology Data Radiology results: report reviewed (chest x-ray: interlobar septal lines are noted consistent with developing interstitial edema. Subtle patchy opacity in the right upper lobe and right lung base may indicate developing edema. Possibility of infection not excluded. Cardiomegaly) - Medical Decision Making Plans admit patient to the hospital since worsening or CHF/pulmonary edema with associated hypoxia. BP troponin pending and patient has a history of chronic troponin elevation likely secondary to end-stage renal disease. Nephrology has been consult to 2 minutes dialysis the patient is comfortable on nasal cannula oxygen and not in distress at this time. - Differential Diagnosis atypical chest pain, DE, PE, CHF, GERD, PUD, chronic pain Critical Care Time: No Critical care attestation.: If time is entered above; I have spent that time in minutes in the direct care of this critically ill patient, excluding procedure time. ED Disposition Clinical Impression: ESRD (end stage renal disease) on dialysis, Headache, Abdominal pain, Pulmonary edema, Atypical chest pain, Elevated troponin, Dyspnea, Hypoxia Disposition: OP ADMIT IP TO THIS HOSP Is pt being admited?: Yes Condition: Stable Time of Disposition: 18:08 (Dr Rooney/hosp)
[2017-05-12] MEDS ORDERED: DILAUDID ONE (20:15)
--- NOTE | 2017-05-12 20:55 | History and Physical Report ---
History of Present Illness Date of examination: 05/12/17 Date of admission: 05/12/17 Chief complaint: Rec Chest pain 1 mth History of present illness: History of Present Illness 66-year-old female with past medical history CHF, asthma, end-stage renal disease on dialysis Sunday, Wednesdays, and Sunday, CVA 2, diabetes, GERD, hypertension, CAD with stent placement, multiple ED visits for chest pain and abdominal pain presents to the Hospital complaints of chest pain and abdominal pain. Symptoms started last night. Patient complains of lower bilateral chest and epigastric pain described as a tightness that is intermittent. With palpation. Patient has shortness of breath at 3 AM causing her to wake up from her sleep. She also plays a lower abdominal pain and unable to characterize this pain only just stating that it is rated 8/10 in intensity. Patient denies nausea, vomiting, or diarrhea. Last bowel movement today was normal. She complains of a frontal headache. Patient has had multiple ED visits for same and last seen by Dr Blanton on 05/07/2017 with the "same symptoms". At that time patient had an unremarkable CT abdomen and pelvis, negative V/Q chest for PE, and received bedside cardiology consultation and advised that no cardiac intervention recommended at this time if second enzyme was negative. Patient was discharged home on tramadol which she states does help her pain. Last dialysis was yesterday. Severity scale (0 -10): 9 Heart Score - HEART Score History: Slightly suspicious EKG: Non-specific Age: > 65 Risk factors: > 3 risk factors or hx of atherosclerotic disease Troponin: 1-3x normal limit HEART Score: 6 Past Medical History Hx Hypertension: Yes Hx CVA: Yes (x 2) Hx Congestive Heart Failure: Yes Hx Diabetes: Yes Hx GERD: Yes Hx Liver Disease: Yes (LESION) Hx Renal Disease: Yes (ESRD/dialysis M, W, F) Hx Arthritis: Yes Hx Asthma: Yes Additional medical history: enlarged heart, gout - Surgical History Hx Coronary Stent: Yes Hx Appendectomy: Yes Additional Surgical History: tubal ligation, vas cath. LUE fistula. cardiac workup includes a stress test on 12/21/2016 that was unremarkable. Patient status post PCI of RCA with subsequent subacute thrombus of the proximal RCA stent and angioplasty with resolution of thrombosis on November 2016. PCI 03/22/17 of RCA. 05/01/17 neg Lexiscan stress - Social History Smoking Status: Current Every Day Smoker Substance Use Type: None - Medications Home Medications: Home Medications Medication Instructions Recorded Confirmed Last Taken Type Aspirin EC [Aspirin Enteric Coated 81 mg PO QDAY 05/07/17 05/12/17 1 Day Ago History TAB] AtorvaSTATin [Lipitor] 80 mg PO QHS 05/07/17 05/12/17 1 Day Ago History Carvedilol [Coreg] 12.5 mg PO BID 05/07/17 05/12/17 1 Day Ago History Clopidogrel [Plavix] 75 mg PO QDAY 05/07/17 05/12/17 1 Day Ago History Lisinopril [Zestril] 20 mg PO QDAY 05/07/17 05/12/17 05/04/17 18:00 History traMADol [Ultram 50 MG tab] 50 mg PO BID PRN #30 tablet 05/07/17 05/12/17 1 Day Ago Rx Review of Systems Stated complaint: ENRIQUE Other details as noted in HPI Comment: All other systems reviewed and negative Other: General: No fever or chills Eyes: No blurry vision or discharge HEENT: No throat pain Neck: No pain Respiratory: No wheezing, or coughing Cardiovascular: No palpitations, or syncope GI: No abdominal pain, nausea, vomiting, diarrhea, melena, or hematochezia Musculoskeletal: No back pain, no joint swelling Neurologic: Denies focal weakness, or focal numbness Psychiatric: Denies hallucinations, suicidal ideation, homicidal ideation Skin: No rash or lesions Medications and Allergies Allergies Allergy/AdvReac Type Severity Reaction Status Date / Time No Known Allergies Allergy Verified 12/09/13 08:59 Home Medications Medication Instructions Recorded Confirmed Last Taken Type Aspirin EC [Aspirin Enteric Coated 81 mg PO QDAY 05/07/17 05/12/17 1 Day Ago History TAB] AtorvaSTATin [Lipitor] 80 mg PO QHS 05/07/17 05/12/17 1 Day Ago History Carvedilol [Coreg] 12.5 mg PO BID 05/07/17 05/12/17 1 Day Ago History Clopidogrel [Plavix] 75 mg PO QDAY 05/07/17 05/12/17 1 Day Ago History Lisinopril [Zestril] 20 mg PO QDAY 05/07/17 05/12/17 05/04/17 18:00 History traMADol [Ultram 50 MG tab] 50 mg PO BID PRN #30 tablet 05/07/17 05/12/17 1 Day Ago Rx Exam - Constitutional Vitals: Temp Pulse Resp BP Pulse Ox 98.8 F 88 20 182/87 95 05/12/17 15:20 05/12/17 18:15 05/12/17 15:20 05/12/17 18:45 05/12/17 18:45 General appearance: Present: no acute distress, well-nourished - EENT Eyes: Present: PERRL ENT: hearing intact, clear oral mucosa - Neck Neck: Present: supple, normal ROM - Respiratory Respiratory effort: normal Respiratory: bilateral: CTA - Cardiovascular Heart rate: 80 Rhythm: regular Heart Sounds: Present: S1 & S2. Absent: rub, click - Extremities Extremities: no ischemia, pulses intact, pulses symmetrical, No edema Peripheral Pulses: within normal limits - Abdominal General gastrointestinal: Present: soft, non-tender, non-distended, normal bowel sounds Female genitourinary: Present: normal - Rectal Rectal Exam: deferred - Integumentary Integumentary: Present: clear, warm, dry - Musculoskeletal Musculoskeletal: gait normal, strength equal bilaterally - Psychiatric Psychiatric: appropriate mood/affect, intact judgment & insight - Neurologic Neurologic: CNII-XII intact, moves all extremities - Allied Health Allied health notes reviewed: nursing, case management Results - Labs CBC & Chem 7: 05/13/17 03:48 05/13/17 03:48 Labs: Laboratory Last Values WBC 7.0 K/mm3 (4.5-11.0) 05/12/17 15:59 RBC 3.49 M/mm3 (3.65-5.03) L 05/12/17 15:59 Hgb 10.6 gm/dl (10.1-14.3) 05/12/17 15:59 Hct 32.6 % (30.3-42.9) 05/12/17 15:59 MCV 93 fl (79-97) 05/12/17 15:59 MCH 30 pg (28-32) 05/12/17 15:59 MCHC 33 % (30-34) 05/12/17 15:59 RDW 19.1 % (13.2-15.2) H 05/12/17 15:59 Plt Count 342 K/mm3 (140-440) 05/12/17 15:59 Lymph % (Auto) 22.5 % (13.4-35.0) 05/12/17 15:59 [place] % (Auto) 11.6 % (0.0-7.3) H 05/12/17 15:59 Eos % (Auto) 0.1 % (0.0-4.3) 05/12/17 15:59 Baso % (Auto) 0.7 % (0.0-1.8) 05/12/17 15:59 Lymph # 1.6 K/mm3 (1.2-5.4) 05/12/17 15:59 [place] # 0.8 K/mm3 (0.0-0.8) 05/12/17 15:59 Eos # 0.0 K/mm3 (0.0-0.4) 05/12/17 15:59 Baso # 0.0 K/mm3 (0.0-0.1) 05/12/17 15:59 Seg Neutrophils % 65.1 % (40.0-70.0) 05/12/17 15:59 Seg Neutrophils # 4.6 K/mm3 (1.8-7.7) 05/12/17 15:59 Sodium 141 mmol/L (137-145) 05/12/17 15:59 Potassium 4.2 mmol/L (3.6-5.0) 05/12/17 15:59 Chloride 91.7 mmol/L (98-107) L 05/12/17 15:59 Carbon Dioxide 31 mmol/L (22-30) H 05/12/17 15:59 Anion Gap 23 mmol/L 05/12/17 15:59 BUN 48 mg/dL (7-17) H 05/12/17 15:59 Creatinine 9.4 mg/dL (0.7-1.2) H 05/12/17 15:59 Estimated GFR 5 ml/min 05/12/17 15:59 BUN/Creatinine Ratio 5.10 % 05/12/17 15:59 Glucose 102 mg/dL (65-100) H 05/12/17 15:59 Calcium 9.3 mg/dL (8.4-10.2) 05/12/17 15:59 Total Bilirubin 0.40 mg/dL (0.1-1.2) 05/12/17 15:59 AST 12 units/L (5-40) 05/12/17 15:59 ALT 13 units/L (7-56) 05/12/17 15:59 Alkaline Phosphatase 123 units/L (35-129) 05/12/17 15:59 Troponin T 0.206 ng/mL (0.00-0.029) H* 05/12/17 19:12 Total Protein 7.0 g/dL (6.3-8.2) 05/12/17 15:59 Albumin 3.5 g/dL (3.9-5) L 05/12/17 15:59 Albumin/Globulin Ratio 1.0 % 05/12/17 15:59 Triglycerides 96 mg/dL (2-149) 05/12/17 15:59 Cholesterol 212 mg/dL (50-199) H 05/12/17 15:59 LDL Cholesterol Direct 127 mg/dL (50-130) 05/12/17 15:59 HDL Cholesterol 66 mg/dL (40-59) H 05/12/17 15:59 Cholesterol/HDL Ratio 3.21 % 05/12/17 15:59 Lipase 9 units/L (13-60) L 05/12/17 15:59 Short CBC 05/12/17 05/13/17 Range/Units 15:59 03:48 WBC 7.0 4.6 (4.5-11.0) K/mm3 Hgb 10.6 8.9 L (10.1-14.3) gm/dl Hct 32.6 27.3 L (30.3-42.9) % Plt Count 342 248 (140-440) K/mm3 BMP 05/12/17 05/13/17 15:59 03:48 Sodium 141 141 Potassium 4.2 4.3 Chloride 91.7 L 92.4 L Carbon Dioxide 31 H 32 H BUN 48 H 53 H Creatinine 9.4 H 9.6 H Glucose 102 H 105 H Calcium 9.3 9.2 Cardiac Enzymes 05/12/17 05/12/17 05/12/17 Range/Units 15:59 19:12 21:51 Total Creatine Kinase 35 (30-135) units/L CK-MB (CK-2) 2.9 (0.0-4.0) ng/mL Troponin T 0.182 H* D 0.206 H* 0.213 H* (0.00-0.029) ng/mL 05/13/17 Range/Units 03:48 Total Creatine Kinase 33 (30-135) units/L CK-MB (CK-2) 2.8 (0.0-4.0) ng/mL Troponin T 0.266 H* D (0.00-0.029) ng/mL Liver Function 05/12/17 05/13/17 Range/Units 15:59 03:48 Total Bilirubin 0.40 0.50 (0.1-1.2) mg/dL AST 12 11 (5-40) units/L ALT 13 9 (7-56) units/L Alkaline Phosphatase 123 98 (35-129) units/L Albumin 3.5 L 2.9 L (3.9-5) g/dL - Imaging and Cardiology EKG: report reviewed Chest x-ray: report reviewed Assessment and Plan Advance Directives: Yes (Full code) VTE prophylaxis?: Chemical Plan of care discussed with patient/family: Yes - Patient Problems (1) Acute coronary syndrome Current Visit: Yes Status: Acute Plan to address problem: Troponin high which maybe nonspecific sec to ESRD Lexiscan ordered for Sunday (2) ESRD needing dialysis Current Visit: Yes Status: Chronic Plan to address problem: Cont Hemodialysis. (3) CAD (coronary artery disease) Current Visit: No Status: Chronic Qualifiers: Coronary Disease-Associated Artery/Lesion type: [place] artery [place] vs. transplanted heart: N Associated angina: with unspecified angina Plan to address problem: Cont Plavix 75 mg po qd (4) HTN (hypertension), benign Current Visit: Yes Status: Chronic Plan to address problem: Cont Carvedilol (5) HLD (hyperlipidemia) Current Visit: Yes Status: Chronic Qualifiers: Hyperlipidemia type: mixed hyperlipidemia Qualified Code(s): E78.2 - Mixed hyperlipidemia Plan to address problem: Cont statins (6) DVT prophylaxis Current Visit: No Status: Acute Plan to address problem: on Heparin
[2017-05-12] MEDS ORDERED: DULCOLAX PR PRN (20:58)
[2017-05-12] MEDS ORDERED: MILK OF MAGNESIA PO PRN (20:58)
[2017-05-12] MEDS ORDERED: TYLENOL PO PRN (20:58)
[2017-05-12] MEDS ORDERED: ZOFRAN IV PRN (20:58)
[2017-05-12] MEDS: ZESTRIL PO SCH (21:33)
[2017-05-12] MEDS: PLAVIX PO SCH (21:33)
[2017-05-12] MEDS: COREG PO SCH (22:16)
[2017-05-12 22:42] LABS: Creatine Kinase MB 2.9 ng/mL (0.0-4.0)
[2017-05-12] MEDS: HALFPRIN EC PO SCH (23:33)
[2017-05-13] MEDS: PERCOCET 5/325 PO PRN ×4 (02:50→21:47)
[2017-05-13 04:38] LABS: Basophils % (Auto) 0.5 % (0.0-1.8); Eosinophils % (Auto) 0.6 % (0.0-4.3); Hematocrit 27.3 % (30.3-42.9); Hemoglobin 8.9 gm/dl (10.1-14.3); Mean Corpuscular HGB Conc 33 % (30-34); Mean Corpuscular Hemoglobin 30 pg (28-32); Mean Corpuscular Volume 93 fl (79-97); Platelet Count 248 K/mm3 (140-440); Red Blood Count 2.95 M/mm3 (3.65-5.03); Red Cell Distribution Width 19.4 % (13.2-15.2); White Blood Count 4.6 K/mm3 (4.5-11.0)
[2017-05-13 04:57] LABS: Creatine Kinase MB 2.8 ng/mL (0.0-4.0)
[2017-05-13 05:00] LABS: Albumin 2.9 g/dL (3.9-5); Albumin/Globulin Ratio 0.8 %; BUN/Creatinine Ratio 5.52; Bilirubin,Total 0.5 mg/dL (0.1-1.2); Calcium 9.2 mg/dL (8.4-10.2); Chloride 92.4 mmol/L (98-107); Potassium 4.3 mmol/L (3.6-5.0); Total Protein 6.5 g/dL (6.3-8.2)
[2017-05-13] MEDS: APRESOLINE IV PRN (07:05)
[2017-05-13] MEDS: PLAVIX PO SCH (09:15)
[2017-05-13] MEDS: HALFPRIN EC PO SCH (09:15)
[2017-05-13] MEDS: COREG PO SCH ×2 (09:16→21:49)
[2017-05-13] MEDS: ZESTRIL PO SCH (09:16)
--- NOTE | 2017-05-13 10:45 | Consultation ---
History of Present Illness Consult date: 05/13/17 Requesting physician: ROXANNE BOND Consult reason: syncope History of present illness: 66-year-old female with past medical history CHF, asthma, end-stage renal disease on dialysis Sunday, Wednesdays, and Sunday, CVA 2, diabetes, GERD, hypertension, CAD with stent placement, multiple ED visits for chest pain and abdominal pain presents to the Hospital complaints of chest pain and abdominal pain. Symptoms started last night. Patient complains of lower bilateral chest and epigastric pain described as a tightness that is intermittent. With palpation. Patient has shortness of breath at 3 AM causing her to wake up from her sleep. She also plays a lower abdominal pain and unable to characterize this pain only just stating that it is rated 8/10 in intensity. Patient denies nausea, vomiting, or diarrhea. Last bowel movement today was normal. She complains of a frontal headache. Patient has had multiple ED visits for same and last seen by me on 05/07/2017 with the "same symptoms". At that time patient had an unremarkable CT abdomen and pelvis, negative V/Q chest for PE, and received bedside cardiology consultation and advised that no cardiac intervention recommended at this time if second enzyme was negative. Patient was discharged home on tramadol which she states does help her pain. Last dialysis was yesterday. Patient states having lightheadedness and fell the bed questions will syncope for a few seconds. Patient denies any chest pain with me today and has some abdominal issues with constipation and no palpitations or fever or chills patient's had multiple admissions patient has extensive cardiac history from last year [place] of the RCA and then November of this year alone only angioplasty for stent thrombosis and last month chest pain with PCI of the ostial RCA Past History Past Medical History: CAD, hypertension, hyperlipidemia, renal failure (on hemodialysis), stroke Past Surgical History: Other Social history: smoking. denies: alcohol abuse, prescription drug abuse Medications and Allergies Allergies Allergy/AdvReac Type Severity Reaction Status Date / Time No Known Allergies Allergy Verified 12/09/13 08:59 Home Medications Medication Instructions Recorded Confirmed Last Taken Type Aspirin EC [Aspirin Enteric Coated 81 mg PO QDAY 05/07/17 05/12/17 1 Day Ago History TAB] AtorvaSTATin [Lipitor] 80 mg PO QHS 05/07/17 05/12/17 1 Day Ago History Carvedilol [Coreg] 12.5 mg PO BID 05/07/17 05/12/17 1 Day Ago History Clopidogrel [Plavix] 75 mg PO QDAY 05/07/17 05/12/17 1 Day Ago History Lisinopril [Zestril] 20 mg PO QDAY 05/07/17 05/12/17 05/04/17 18:00 History traMADol [Ultram 50 MG tab] 50 mg PO BID PRN #30 tablet 05/07/17 05/12/17 1 Day Ago Rx Active Meds: Active Medications Acetaminophen (Tylenol) 650 mg PO Q4H PRN PRN Reason: Pain MILD(1-3)/Fever >100.5/SANCHEZ Aspirin (Halfprin Ec) 81 mg PO QDAY [facility] Last Admin: 05/13/17 09:15 Dose: 81 mg Atorvastatin Calcium (Lipitor) 80 mg PO QHS [facility] Last Admin: 05/12/17 22:16 Dose: 80 mg Bisacodyl (Dulcolax) 10 mg IA QDAY PRN PRN Reason: Constipation unrelieved by MOM Carvedilol (Coreg) 12.5 mg PO BID [facility] Last Admin: 05/13/17 09:16 Dose: 12.5 mg Clopidogrel Bisulfate (Plavix) 75 mg PO QDAY [facility] Last Admin: 05/13/17 09:15 Dose: 75 mg Hydralazine HCl (Apresoline) 5 mg IV Q6H PRN PRN Reason: Hypertension Last Admin: 05/13/17 07:05 Dose: 5 mg Lisinopril (Zestril) 20 mg PO QDAY [facility] Last Admin: 05/13/17 09:16 Dose: 20 mg Magnesium Hydroxide (Milk Of Magnesia) 30 ml PO Q4H PRN PRN Reason: Constipation Ondansetron HCl (Zofran) 4 mg IV Q8H PRN PRN Reason: N/V unrelieved by Reglan Oxycodone/Acetaminophen (Percocet 5/325) 1 tab PO Q6H PRN PRN Reason: Pain, Moderate (4-6) Last Admin: 05/13/17 09:15 Dose: 1 tab Tramadol HCl (Ultram) 50 mg PO BID PRN PRN Reason: Pain Review of Systems All systems: negative (as per the HPI) Physical Examination Vital Signs Pulse Ox 91 05/12/17 15:16 General appearance: no acute distress, well-nourished HEENT: Positive: PERRL, Mucus Membranes Moist Neck: Positive: neck supple, trachea midline Cardiac: Positive: Reg Rate and Rhythm, S1/S2. Negative: Audible Murmur Lungs: Positive: clear to auscultation, Normal Breath Sounds Neuro: Positive: Grossly Intact Abdomen: Positive: Soft, Active Bowel Sounds. Negative: Tender, Distended Female genitourinary: deferred Skin: Positive: Clear Incision: Cardiac Cath Site Musculoskeletal: No Pain, Normal Range of Motion Extremities: Present: normal. Absent: edema Results 05/13/17 03:48 05/13/17 03:48 Cardiac Enzymes 05/12/17 05/13/17 05/13/17 Range/Units 21:51 03:48 03:48 AST 11 (5-40) units/L CK-MB (CK-2) 2.9 2.8 (0.0-4.0) ng/mL CBC 05/13/17 Range/Units 03:48 WBC 4.6 (4.5-11.0) K/mm3 RBC 2.95 L (3.65-5.03) M/mm3 Hgb 8.9 L (10.1-14.3) gm/dl Hct 27.3 L (30.3-42.9) % Plt Count 248 (140-440) K/mm3 Lymph # 1.2 (1.2-5.4) K/mm3 [place] # 0.7 (0.0-0.8) K/mm3 Eos # 0.0 (0.0-0.4) K/mm3 Baso # 0.0 (0.0-0.1) K/mm3 Comprehensive Metabolic Panel 05/13/17 Range/Units 03:48 Sodium 141 (137-145) mmol/L Potassium 4.3 (3.6-5.0) mmol/L Chloride 92.4 L (98-107) mmol/L Carbon Dioxide 32 H (22-30) mmol/L BUN 53 H (7-17) mg/dL Creatinine 9.6 H (0.7-1.2) mg/dL Glucose 105 H (65-100) mg/dL Calcium 9.2 (8.4-10.2) mg/dL AST 11 (5-40) units/L ALT 9 (7-56) units/L Alkaline Phosphatase 98 (35-129) units/L Total Protein 6.5 (6.3-8.2) g/dL Albumin 2.9 L (3.9-5) g/dL - Imaging and Cardiology Stress echo: report reviewed (04/2016 EF 3540% with inferior infarction no ischemia noted) Cardiac cath: report reviewed (03/2016 with a patent LAD patent circumflex patent with RCA ostial 95% lesion requiring PCI with a drug-eluting 3.5 x 12 mm stent EF 35-40%) EKG interpretations - Telemetry EKG Rhythm: Sinus Rhythm (normal sinus rhythm with inferior wall OK) Assessment and Plan Syncope Chest pain questionable GI in nature Multiple admissions Renal failure on hemodialysis Hypertension Hyperlipidemia Coronary disease with recent PCI of the RCA nstemi type 2 Recommend: patient had a colonscopy revealed no acute pathology patient is denying any chest pain, but did have some questionable loss of consciousness were EF has gone below 35%. Patient blood pressure medicines readjusted for better BP control
--- NOTE | 2017-05-13 14:22 | Consultation ---
History of Present Illness - Reason for Consult Consult date: 05/13/17 end stage renal disease Requesting physician: DRISS CUNNINGHAM - History of Present Illness History of present illness. 66-year-old with a history of end-stage renal disease, hypertension and coronary disease. Several hospitalizations with chest /abdominal pain admitted after she presented with chest/abdominal pain 10/10 in severity and with no associated N/V/D. No aggravating relieving factors. Her last dialysis was on Sunday and did full session. 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 denies: alcohol abuse, prescription drug abuse, IV drug use Family history: hypertension (both parents and her brother), other (father of complications of rheumatic fever. Mother in her 60s with kidney failure. One brother was on dialysis before he ) Medications and Allergies Allergies Allergy/AdvReac Type Severity Reaction Status Date / Time No Known Allergies Allergy Verified 12/09/13 08:59 Home Medications Medication Instructions Recorded Confirmed Last Taken Type Aspirin EC [Aspirin Enteric Coated 81 mg PO QDAY 05/07/17 05/12/17 1 Day Ago History TAB] AtorvaSTATin [Lipitor] 80 mg PO QHS 05/07/17 05/12/17 1 Day Ago History Carvedilol [Coreg] 12.5 mg PO BID 05/07/17 05/12/17 1 Day Ago History Clopidogrel [Plavix] 75 mg PO QDAY 05/07/17 05/12/17 1 Day Ago History Lisinopril [Zestril] 20 mg PO QDAY 05/07/17 05/12/17 05/04/17 18:00 History traMADol [Ultram 50 MG tab] 50 mg PO BID PRN #30 tablet 05/07/17 05/12/17 1 Day Ago Rx Active Meds: Active Medications Acetaminophen (Tylenol) 650 mg PO Q4H PRN PRN Reason: Pain MILD(1-3)/Fever >100.5/SANCHEZ Aspirin (Halfprin Ec) 81 mg PO QDAY [facility] Last Admin: 05/13/17 09:15 Dose: 81 mg Atorvastatin Calcium (Lipitor) 80 mg PO QHS [facility] Last Admin: 05/12/17 22:16 Dose: 80 mg Bisacodyl (Dulcolax) 10 mg ID QDAY PRN PRN Reason: Constipation unrelieved by MOM Carvedilol (Coreg) 12.5 mg PO BID [facility] Last Admin: 05/13/17 09:16 Dose: 12.5 mg Clopidogrel Bisulfate (Plavix) 75 mg PO QDAY [facility] Last Admin: 05/13/17 09:15 Dose: 75 mg Hydralazine HCl (Apresoline) 5 mg IV Q6H PRN PRN Reason: Hypertension Last Admin: 05/13/17 07:05 Dose: 5 mg Isosorbide Mononitrate (Imdur) 30 mg PO QDAY [facility] Lisinopril (Zestril) 20 mg PO QDAY [facility] Last Admin: 05/13/17 09:16 Dose: 20 mg Magnesium Hydroxide (Milk Of Magnesia) 30 ml PO Q4H PRN PRN Reason: Constipation Ondansetron HCl (Zofran) 4 mg IV Q8H PRN PRN Reason: N/V unrelieved by Reglan Oxycodone/Acetaminophen (Percocet 5/325) 1 tab PO Q6H PRN PRN Reason: Pain, Moderate (4-6) Last Admin: 05/13/17 09:15 Dose: 1 tab Tramadol HCl (Ultram) 50 mg PO BID PRN PRN Reason: Pain Review of Systems Constitutional: no weight loss, no weight gain, no fever, no chills Ears, nose, mouth and throat: no ear pain, no ear discharge, no tinnitis, no decreased hearing Cardiovascular: chest pain, no orthopnea, no palpitations, no edema, no syncope , no lightheadedness Respiratory: no cough, no cough with sputum, no shortness of breath Gastrointestinal: abdominal pain, no nausea, no vomiting, no diarrhea Genitourinary Female: no pelvic pain, no flank pain Rectal: no pain, no incontinence Musculoskeletal: no neck stiffness, no neck pain Integumentary: no rash, no pruritis, no redness Neurological: no paralysis, no weakness, no parathesias, no numbness Psychiatric: no anxiety, no memory loss Endocrine: no cold intolerance, no heat intolerance Hematologic/Lymphatic: no easy bruising, no easy bleeding Exam - Vital Signs Vital signs: Vital Signs Pulse Ox 91 05/12/17 15:16 - Physical Exam Narrative exam: Elderly -[place] female lying in bed in no acute distress HEENT normocephalic atraumatic, pupils equal reactive to light, pink, clear oropharynx Neck supple, no thyromegaly no jugular venous distention CVS S1-S2 regular rate rhythm without murmur, rub or gallop Chest clear to auscultation Abdomen soft nondistended nontender no organomegaly no bruit bowel sounds present Extremities no edema no cyanosis or clubbing Genitourinary deferred Neuro awake, alert oriented x3 no gross deficit Results - Lab Results 05/13/17 03:48 05/13/17 03:48 Most recent lab results Calcium 9.2 mg/dL (8.4-10.2) 05/13/17 03:48 Assessment and Plan (1) End stage renal disease on dialysis Current Visit: Yes Status: Chronic Plan to address problem: Continue hemodialysis today and then on a Sunday, Sunday and Sunday schedule (2) Accelerated hypertension Current Visit: No Status: Acute Plan to address problem: Resume oral medications Hydralazine PRN (3) Chest pain/abdominal pain Current Visit: Yes Status: Acute Plan to address problem: Pt had extensive cardiac work up done and with recent PCI. Follow up on cardio/GI recommendations (4) Anemia in chronic kidney disease Current Visit: No Status: Acute Qualifiers: Chronic kidney disease stage: C Plan to address problem: Continue erythropoietin
--- NOTE | 2017-05-13 15:04 | Progress Note ---
Assessment and Plan Assessment and plan: Chest pain. Rule out acute coronary syndrome. Patient has been admitted multiple times for chest pain and has had extensive cardiac workup. I discussed this with Dr. Molina, cardiology. Syncope. To r/o cardiac etiology. NSTEMI type 2. Aspirin, Plavix Coronary Artery disease. Continue Aspirin and Plavix, Coreg ESRD on hemodialysis. Nephrology following Epigastric pain, probably GERD. start Protonix. Hypertension. BP was uncontrolled on admission. Medications adjusted by cardiology to control BP Hyperlipidemia. She is on statins DVT prophylaxis with heparin CODE STATUS History Interval history: chest pain abdominal pain Hospitalist Physical - Physical exam Narrative exam: Gen appearance: Not in acute distress HEENT: normocephalic, atraumatic Neck: supple, no JVD, Lungs: Clear to auscultation bilaterally, no crackles or wheezes Heart :S1 and S2 regular, no murmurs, rubs or gallop Abdomen: Soft, non tender, non distended, normal bowel sounds Extremities :no edema, no clubbing or cyanosis Neuro: Awake,alert,oriented x 3, no focal neurological signs - Constitutional Vitals: Temp Pulse Resp BP Pulse Ox 98.2 F 78 20 139/66 99 05/13/17 08:55 05/13/17 08:55 05/13/17 08:55 05/13/17 08:55 05/13/17 08:55 General appearance: Present: no acute distress, well-nourished Results - Labs CBC & Chem 7: 05/13/17 03:48 05/13/17 03:48 Labs: Laboratory Last Values WBC 4.6 K/mm3 (4.5-11.0) 05/13/17 03:48 RBC 2.95 M/mm3 (3.65-5.03) L 05/13/17 03:48 Hgb 8.9 gm/dl (10.1-14.3) L 05/13/17 03:48 Hct 27.3 % (30.3-42.9) L 05/13/17 03:48 MCV 93 fl (79-97) 05/13/17 03:48 MCH 30 pg (28-32) 05/13/17 03:48 MCHC 33 % (30-34) 05/13/17 03:48 RDW 19.4 % (13.2-15.2) H 05/13/17 03:48 Plt Count 248 K/mm3 (140-440) 05/13/17 03:48 Lymph % (Auto) 25.4 % (13.4-35.0) 05/13/17 03:48 [place] % (Auto) 15.7 % (0.0-7.3) H 05/13/17 03:48 Eos % (Auto) 0.6 % (0.0-4.3) 05/13/17 03:48 Baso % (Auto) 0.5 % (0.0-1.8) 05/13/17 03:48 Lymph # 1.2 K/mm3 (1.2-5.4) 05/13/17 03:48 [place] # 0.7 K/mm3 (0.0-0.8) 05/13/17 03:48 Eos # 0.0 K/mm3 (0.0-0.4) 05/13/17 03:48 Baso # 0.0 K/mm3 (0.0-0.1) 05/13/17 03:48 Seg Neutrophils % 57.8 % (40.0-70.0) 05/13/17 03:48 Seg Neutrophils # 2.7 K/mm3 (1.8-7.7) 05/13/17 03:48 Sodium 141 mmol/L (137-145) 05/13/17 03:48 Potassium 4.3 mmol/L (3.6-5.0) 05/13/17 03:48 Chloride 92.4 mmol/L (98-107) L 05/13/17 03:48 Carbon Dioxide 32 mmol/L (22-30) H 05/13/17 03:48 Anion Gap 21 mmol/L 05/13/17 03:48 BUN 53 mg/dL (7-17) H 05/13/17 03:48 Creatinine 9.6 mg/dL (0.7-1.2) H 05/13/17 03:48 Estimated GFR 5 ml/min 05/13/17 03:48 BUN/Creatinine Ratio 5.52 % 05/13/17 03:48 Glucose 105 mg/dL (65-100) H 05/13/17 03:48 Calcium 9.2 mg/dL (8.4-10.2) 05/13/17 03:48 Total Bilirubin 0.50 mg/dL (0.1-1.2) 05/13/17 03:48 AST 11 units/L (5-40) 05/13/17 03:48 ALT 9 units/L (7-56) 05/13/17 03:48 Alkaline Phosphatase 98 units/L (35-129) 05/13/17 03:48 Total Creatine Kinase 37 units/L (30-135) 05/13/17 09:45 CK-MB (CK-2) 3.0 ng/mL (0.0-4.0) 05/13/17 09:45 CK-MB (CK-2) Rel Index 8.1 (0-4) H 05/13/17 09:45 Troponin T 0.290 ng/mL (0.00-0.029) H* 05/13/17 09:45 Total Protein 6.5 g/dL (6.3-8.2) 05/13/17 03:48 Albumin 2.9 g/dL (3.9-5) L 05/13/17 03:48 Albumin/Globulin Ratio 0.8 % 05/13/17 03:48 Triglycerides 96 mg/dL (2-149) 05/12/17 15:59 Cholesterol 212 mg/dL (50-199) H 05/12/17 15:59 LDL Cholesterol Direct 127 mg/dL (50-130) 05/12/17 15:59 HDL Cholesterol 66 mg/dL (40-59) H 05/12/17 15:59 Cholesterol/HDL Ratio 3.21 % 05/12/17 15:59 Lipase 9 units/L (13-60) L 05/12/17 15:59
[2017-05-13] MEDS: PROTONIX PO SCH (16:16)
[2017-05-13] MEDS: IMDUR PO SCH (17:36)
[2017-05-13] MEDS: ULTRAM PO PRN (19:40)
[2017-05-13] MEDS: HEPARIN SUB-Q SCH (21:46)
[2017-05-14] MEDS: ULTRAM PO PRN ×2 (01:08→09:58)
--- NOTE | 2017-05-14 02:16 | Admit Criteria Form ---
Admission Criteria Documentation: CHEST PAIN Clinical Indications for Admission to Inpatient Care ([place]/check or initial the applicable condition/criteria) Admission is indicated for chest pain and ANY ONE of the following (1)(2)(3)(4)( 5)(6)(7): [X]I. Angina with acute coronary syndrome (Also use Myocardial Infarction or Angina guideline) [ ]II. Hemodynamic instability [ ]III. Respiratory distress [ ]IV. Chest pain indicative of serious diagnosis other than coronary artery disease (e.g., aorticdissection) Extended stay beyond goal length of stay may be needed for(3)(4)(10)(45)(48) [ ]a) Unstable angina [ ]b) Continued suspicion of acute coronary syndrome with inability to complete needed cardiac evaluation (eg, patient clinically unable to undergo stress testing) [ ]c) Myocardial infarction [ ]d) Specific condition diagnosed after evaluation (eg, pulmonary embolism, aortic dissection)(49)(50)(51) The original [employer] content created by [employer] has been revised. The portions of the content which have been revised are identified through the use of italic text or in bold, and [employer] has neither reviewed nor approved the modified material. All other unmodified content is copyright [employer]. Please see references footnoted in the original [employer] edition 2017 Admission Criteria Met: Yes
--- NOTE | 2017-05-14 09:18 | Progress Note ---
Assessment and Plan Assessment: Syncope Recurrent atypical chest pain - negative lexiscan MPI stress test on 05/02/2017. CAD - PCI of RCA in 08/2016 with subsequent subacute thrombus of the proximal RCA stent and balloon angioplasty with resolution of thrombus on 11/28/2016, s/p additional PCI of RCA on 03/22/2017 @ [facility] NSVT ESRD on HD Hypertension Hyperlipidemia NSTEMI type 2 PVD Tobacco use Plan: Await limited echo to assess LV function. Plan for coronary angiogram in AM for further evaluation of questionable loss of consciousness in pt with known CAD and CMP. Indications, potential risks, and benefits of LHC reviewed with pt and she is agreeable to proceed in AM. Consents obtained. The patient has been seen in conjunction with Dr. Newton who agrees with the assessment and plan of care. Subjective Date of service: 05/14/17 Principal diagnosis: syncope Interval history: Pt resting comfortably in bed, c/o some palpitations overnight. Telemetry reviewed - pt had 45 beat run VT this AM. Objective Last Vital Signs Temp 97.8 F 05/14/17 08:00 Pulse 77 05/14/17 08:00 Resp 18 05/14/17 08:00 BP 188/87 05/14/17 08:00 Pulse Ox 100 05/14/17 08:00 - Physical Examination General: Appears Well, No Apparent Distress HEENT: Positive: PERRL, Mucus Membranes Moist Neck: Positive: neck supple, trachea midline Cardiac: Positive: Reg Rate and Rhythm, S1/S2, Systolic Murmur Lungs: Positive: clear to auscultation Neuro: Positive: Grossly Intact Abdomen: Positive: Soft, Active Bowel Sounds. Negative: Tender, Distended Skin: Positive: Clear Incision: Cardiac Cath Site Musculoskeletal: No Pain, Normal Range of Motion Extremities: Present: normal. Absent: edema - Labs and Meds Cardiac Enzymes 05/13/17 Range/Units 09:45 CK-MB (CK-2) 3.0 (0.0-4.0) ng/mL - Imaging and Cardiology EKG: report reviewed Stress echo: report reviewed (04/2016 EF 3540% with inferior infarction no ischemia noted) Cardiac cath: report reviewed (03/2016 with a patent LAD patent circumflex patent with RCA ostial 95% lesion requiring PCI with a drug-eluting 3.5 x 12 mm stent EF 35-40%) - Telemetry EKG Rhythm: Sinus Rhythm
[2017-05-14] MEDS: HALFPRIN EC PO SCH (09:48)
[2017-05-14] MEDS: HEPARIN SUB-Q SCH ×2 (09:48→21:58)
[2017-05-14] MEDS: COREG PO SCH ×2 (09:48→21:56)
[2017-05-14] MEDS: ZESTRIL PO SCH (09:49)
[2017-05-14] MEDS: IMDUR PO SCH (09:49)
[2017-05-14] MEDS: PROTONIX PO SCH (09:49)
[2017-05-14] MEDS: PLAVIX PO SCH (09:49)
[2017-05-14] MEDS: APRESOLINE IV PRN (09:58)
[2017-05-14] MEDS ORDERED: NACL 0.9% 100 ML IV PRN (10:41)
--- NOTE | 2017-05-14 10:41 | Progress Note ---
Assessment and Plan (1) End stage renal disease on dialysis Current Visit: Yes Status: Chronic Plan to address problem: HD today (2) Accelerated hypertension Current Visit: No Status: Acute Plan to address problem: Resume oral medications Hydralazine PRN (3) Chest pain Current Visit: Yes Status: Acute Plan to address problem: Pt had extensive cardiac work up done and with recent PCI. For cardiac cath in am (4) Anemia in chronic kidney disease Current Visit: No Status: Acute Qualifiers: Chronic kidney disease stage: C Plan to address problem: Continue erythropoietin Subjective Date of service: 05/14/17 Principal diagnosis: syncope Interval history: No SOB. + chest pain/palpitations Objective - Exam Narrative Exam: Elderly -[place] female lying in bed in no acute distress HEENT normocephalic atraumatic, pupils equal reactive to light, pink, clear oropharynx Neck supple, no thyromegaly no jugular venous distention CVS S1-S2 regular rate rhythm without murmur, rub or gallop Chest clear to auscultation Abdomen soft nondistended nontender no organomegaly no bruit bowel sounds present Extremities no edema no cyanosis or clubbing Genitourinary deferred Neuro awake, alert oriented x3 no gross deficit - Vital Signs Vital signs: Vital Signs - 12hr 05/13/17 05/14/17 05/14/17 23:00 00:55 01:08 Temperature 98.3 F Pulse Rate 78 74 Respiratory 20 20 Rate Blood Pressure 156/78 O2 Sat by Pulse 99 Oximetry 05/14/17 05/14/17 05/14/17 04:30 08:00 09:48 Temperature 98.3 F 97.8 F Pulse Rate 73 77 77 Respiratory 24 18 Rate Blood Pressure 168/80 188/87 188/87 O2 Sat by Pulse 100 100 Oximetry 05/14/17 05/14/17 09:49 09:58 Temperature Pulse Rate 77 77 Respiratory Rate Blood Pressure 188/87 188/87 O2 Sat by Pulse Oximetry - Lab 05/13/17 03:48 05/13/17 03:48 Most recent lab results Calcium 9.2 mg/dL (8.4-10.2) 05/13/17 03:48
--- NOTE | 2017-05-14 13:30 | Progress Note ---
Assessment and Plan Assessment and plan: Chest pain. To rule out acute coronary syndrome. Patient has been admitted multiple times for chest pain and has had extensive cardiac workup. I discussed this with Cardiology. For cardiac cath tomorrow. Syncope. To r/o cardiac etiology. NSTEMI type 2. Aspirin, Plavix. For cardiac cath tomorrow. Coronary Artery disease. Continue Aspirin and Plavix, Coreg ESRD on hemodialysis. Nephrology following Epigastric pain, probably GERD. start Protonix. Hypertension. BP still uncontrolled. Will add Norvasc Hyperlipidemia. She is on statins DVT prophylaxis with heparin CODE STATUS History Interval history: chest pain abdominal pain Hospitalist Physical - Physical exam Narrative exam: Gen appearance: Not in acute distress HEENT: normocephalic, atraumatic Neck: supple, no JVD, Lungs: Clear to auscultation bilaterally, no crackles or wheezes Heart :S1 and S2 regular, no murmurs, rubs or gallop Abdomen: Soft, non tender, non distended, normal bowel sounds Extremities :no edema, no clubbing or cyanosis Neuro: Awake,alert,oriented x 3, no focal neurological signs - Constitutional Vitals: Temp Pulse Resp BP Pulse Ox 97.8 F 77 18 188/87 100 05/14/17 08:00 05/14/17 09:58 05/14/17 08:00 05/14/17 09:58 05/14/17 08:00 General appearance: Present: no acute distress, well-nourished Results - Labs CBC & Chem 7: 05/13/17 03:48 05/13/17 03:48 Labs: Laboratory Last Values WBC 4.6 K/mm3 (4.5-11.0) 05/13/17 03:48 RBC 2.95 M/mm3 (3.65-5.03) L 05/13/17 03:48 Hgb 8.9 gm/dl (10.1-14.3) L 05/13/17 03:48 Hct 27.3 % (30.3-42.9) L 05/13/17 03:48 MCV 93 fl (79-97) 05/13/17 03:48 MCH 30 pg (28-32) 05/13/17 03:48 MCHC 33 % (30-34) 05/13/17 03:48 RDW 19.4 % (13.2-15.2) H 05/13/17 03:48 Plt Count 248 K/mm3 (140-440) 05/13/17 03:48 Lymph % (Auto) 25.4 % (13.4-35.0) 05/13/17 03:48 [place] % (Auto) 15.7 % (0.0-7.3) H 05/13/17 03:48 Eos % (Auto) 0.6 % (0.0-4.3) 05/13/17 03:48 Baso % (Auto) 0.5 % (0.0-1.8) 05/13/17 03:48 Lymph # 1.2 K/mm3 (1.2-5.4) 05/13/17 03:48 [place] # 0.7 K/mm3 (0.0-0.8) 05/13/17 03:48 Eos # 0.0 K/mm3 (0.0-0.4) 05/13/17 03:48 Baso # 0.0 K/mm3 (0.0-0.1) 05/13/17 03:48 Seg Neutrophils % 57.8 % (40.0-70.0) 05/13/17 03:48 Seg Neutrophils # 2.7 K/mm3 (1.8-7.7) 05/13/17 03:48 Sodium 141 mmol/L (137-145) 05/13/17 03:48 Potassium 4.3 mmol/L (3.6-5.0) 05/13/17 03:48 Chloride 92.4 mmol/L (98-107) L 05/13/17 03:48 Carbon Dioxide 32 mmol/L (22-30) H 05/13/17 03:48 Anion Gap 21 mmol/L 05/13/17 03:48 BUN 53 mg/dL (7-17) H 05/13/17 03:48 Creatinine 9.6 mg/dL (0.7-1.2) H 05/13/17 03:48 Estimated GFR 5 ml/min 05/13/17 03:48 BUN/Creatinine Ratio 5.52 % 05/13/17 03:48 Glucose 105 mg/dL (65-100) H 05/13/17 03:48 POC Glucose 73 (70-105) 05/14/17 07:54 Calcium 9.2 mg/dL (8.4-10.2) 05/13/17 03:48 Total Bilirubin 0.50 mg/dL (0.1-1.2) 05/13/17 03:48 AST 11 units/L (5-40) 05/13/17 03:48 ALT 9 units/L (7-56) 05/13/17 03:48 Alkaline Phosphatase 98 units/L (35-129) 05/13/17 03:48 Total Creatine Kinase 37 units/L (30-135) 05/13/17 09:45 CK-MB (CK-2) 3.0 ng/mL (0.0-4.0) 05/13/17 09:45 CK-MB (CK-2) Rel Index 8.1 (0-4) H 05/13/17 09:45 Troponin T 0.290 ng/mL (0.00-0.029) H* 05/13/17 09:45 Total Protein 6.5 g/dL (6.3-8.2) 05/13/17 03:48 Albumin 2.9 g/dL (3.9-5) L 05/13/17 03:48 Albumin/Globulin Ratio 0.8 % 05/13/17 03:48 Triglycerides 96 mg/dL (2-149) 05/12/17 15:59 Cholesterol 212 mg/dL (50-199) H 05/12/17 15:59 LDL Cholesterol Direct 127 mg/dL (50-130) 05/12/17 15:59 HDL Cholesterol 66 mg/dL (40-59) H 05/12/17 15:59 Cholesterol/HDL Ratio 3.21 % 05/12/17 15:59 Lipase 9 units/L (13-60) L 05/12/17 15:59
[2017-05-14] MEDS ORDERED: NACL 0.9 (PRIMING MACHINE ONLY DIALYSIS) MC ONE (14:08)
[2017-05-14] MEDS: PROCRIT IV PRN (15:00)
[2017-05-14] MEDS: NORVASC PO SCH (20:21)
[2017-05-14] MEDS: PERCOCET 5/325 PO PRN (21:57)
[2017-05-15] MEDS: APRESOLINE IV PRN (04:40)
[2017-05-15 04:47] LABS: Hematocrit 26.7 % (30.3-42.9); Hemoglobin 8.8 gm/dl (10.1-14.3); Mean Corpuscular HGB Conc 33 % (30-34); Mean Corpuscular Hemoglobin 30 pg (28-32); Mean Corpuscular Volume 92 fl (79-97); Platelet Count 236 K/mm3 (140-440); Red Cell Distribution Width 19.6 % (13.2-15.2); White Blood Count 3.7 K/mm3 (4.5-11.0)
[2017-05-15 04:58] LABS: INR 1.09 (0.87-1.13)
[2017-05-15 05:09] LABS: BUN/Creatinine Ratio 4.05; Calcium 9.5 mg/dL (8.4-10.2); Chloride 93.9 mmol/L (98-107); Potassium 3.7 mmol/L (3.6-5.0)
[2017-05-15 06:36] LABS: Anisocytosis 1+; Basophils % (Manual) 0 % (0.0-1.8); Blastocytes % (Manual) 0 %
[2017-05-15 06:37] LABS: Diff Status Complete
[2017-05-15] MEDS: PROTONIX PO SCH (09:34)
[2017-05-15] MEDS: PLAVIX PO SCH (09:34)
[2017-05-15] MEDS: COREG PO SCH ×2 (09:34→23:04)
[2017-05-15] MEDS: HALFPRIN EC PO SCH (09:34)
[2017-05-15] MEDS: PERCOCET 5/325 PO PRN ×2 (09:35→18:34)
[2017-05-15] MEDS: IMDUR PO SCH (09:35)
[2017-05-15] MEDS: ZESTRIL PO SCH (09:36)
[2017-05-15] MEDS: NORVASC PO SCH (09:36)
[2017-05-15] MEDS: HEPARIN SUB-Q SCH ×2 (09:37→23:04)
--- NOTE | 2017-05-15 10:57 | Progress Note ---
Assessment and Plan Assessment: Syncope Recurrent atypical chest pain - currently resolved; negative lexiscan MPI stress test on 05/02/2017. CAD - PCI of RCA in 08/2016 with subsequent subacute thrombus of the proximal RCA stent and balloon angioplasty with resolution of thrombus on 11/28/2016, s/p additional PCI of RCA on 03/22/2017 @ [place] NSVT ESRD on HD Hypertension Hyperlipidemia NSTEMI type 2 PVD Tobacco use Plan: Obtain stool occult blood. Further anemia w/u per primary. Repeat H/H in AM and pending H/H is stable in AM, plan for coronary angiogram in AM. The patient has been seen in conjunction with Dr. Newton who agrees with the assessment and plan of care. Subjective Date of service: 05/15/17 Principal diagnosis: syncope Interval history: Pt resting comfortably in bed, no cardiac complaints. Telemetry reviewed with no arrhythmias overnight. Pt's H/H noted to be decreased this AM and pt states "I noticed black stool". Objective Last Vital Signs Temp 99.0 F 05/15/17 08:07 Pulse 74 05/15/17 09:36 Resp 20 05/15/17 08:07 BP 183/82 05/15/17 09:36 Pulse Ox 100 05/15/17 08:07 - Physical Examination General: Appears Well, No Apparent Distress HEENT: Positive: PERRL, Mucus Membranes Moist Neck: Positive: neck supple, trachea midline Cardiac: Positive: Reg Rate and Rhythm, S1/S2 Lungs: Positive: clear to auscultation Neuro: Positive: Grossly Intact Abdomen: Positive: Soft, Active Bowel Sounds. Negative: Tender, Distended Skin: Positive: Clear Incision: Cardiac Cath Site Musculoskeletal: No Pain, Normal Range of Motion Extremities: Present: normal. Absent: edema - Labs and Meds Coagulation 05/15/17 Range/Units 04:34 PT 14.0 (12.2-14.9) Sec. INR 1.09 (0.87-1.13) CBC 05/15/17 Range/Units 04:34 WBC 3.7 L (4.5-11.0) K/mm3 RBC 2.90 L (3.65-5.03) M/mm3 Hgb 8.8 L (10.1-14.3) gm/dl Hct 26.7 L (30.3-42.9) % Plt Count 236 (140-440) K/mm3 Comprehensive Metabolic Panel 05/15/17 Range/Units 04:34 Sodium 139 (137-145) mmol/L Potassium 3.7 (3.6-5.0) mmol/L Chloride 93.9 L (98-107) mmol/L Carbon Dioxide 30 (22-30) mmol/L BUN 28 H (7-17) mg/dL Creatinine 6.9 H (0.7-1.2) mg/dL Glucose 72 (65-100) mg/dL Calcium 9.5 (8.4-10.2) mg/dL - Imaging and Cardiology EKG: report reviewed Stress echo: report reviewed (04/2016 EF 3540% with inferior infarction no ischemia noted) Cardiac cath: report reviewed (03/2016 with a patent LAD patent circumflex patent with RCA ostial 95% lesion requiring PCI with a drug-eluting 3.5 x 12 mm stent EF 35-40%)
--- NOTE | 2017-05-15 11:41 | Progress Note ---
Assessment and Plan (1) End stage renal disease on dialysis Current Visit: Yes Status: Chronic Plan to address problem: HD today (2) Accelerated hypertension Current Visit: No Status: Acute Plan to address problem: Increased dose of amlodipine and carvidolol for better BP control (3) Chest pain Current Visit: Yes Status: Acute Plan to address problem: Pt had extensive cardiac work up done and with recent PCI. For cardiac cath on 05/16 (4) Anemia in chronic kidney disease Current Visit: No Status: Acute Qualifiers: Chronic kidney disease stage: C Plan to address problem: Continue erythropoietin Subjective Date of service: 05/15/17 Principal diagnosis: syncope Interval history: cardiac cath postponed 10/19 ?GI bleeding Objective - Exam Narrative Exam: Elderly -Chinese female lying in bed in no acute distress HEENT normocephalic atraumatic, pupils equal reactive to light, pink, clear oropharynx Neck supple, no thyromegaly no jugular venous distention CVS S1-S2 regular rate rhythm without murmur, rub or gallop Chest clear to auscultation Abdomen soft nondistended nontender no organomegaly no bruit bowel sounds present Extremities no edema no cyanosis or clubbing Genitourinary deferred Neuro awake, alert oriented x3 no gross deficit - Vital Signs Vital signs: Vital Signs - 12hr 05/15/17 05/15/17 05/15/17 00:34 04:30 04:40 Temperature 98.6 F 98.3 F Pulse Rate 70 72 72 Respiratory 22 20 Rate Blood Pressure 153/65 174/82 174/82 O2 Sat by Pulse 100 100 Oximetry 05/15/17 05/15/17 05/15/17 08:07 09:34 09:35 Temperature 99.0 F Pulse Rate 74 74 74 Respiratory 20 Rate Blood Pressure 183/82 183/82 183/82 O2 Sat by Pulse 100 Oximetry 05/15/17 05/15/17 09:36 11:34 Temperature 98.7 F Pulse Rate 74 68 Respiratory 18 Rate Blood Pressure 183/82 158/64 O2 Sat by Pulse 100 Oximetry - Lab 05/15/17 15:07 05/15/17 04:34 Most recent lab results Calcium 9.5 mg/dL (8.4-10.2) 05/15/17 04:34
[2017-05-15] MEDS: PROTONIX IV SCH ×2 (13:58→23:04)
--- NOTE | 2017-05-15 15:50 | Progress Note ---
Assessment and Plan Assessment and plan: Chest pain. To rule out acute coronary syndrome. Patient has been admitted multiple times for chest pain and has had extensive cardiac workup. I discussed this with Cardiology. For cardiac cath tomorrow. Postponed to tomorrow to evaluate black stools Syncope. To r/o cardiac etiology. NSTEMI type 2. Aspirin, Plavix. For cardiac cath tomorrow. Coronary Artery disease. Continue Aspirin and Plavix, Coreg ESRD on hemodialysis. Nephrology following Abdominal pain, probably GERD. start Protonix. Black stools as per patient. Stool occult blood ordered. Change Protonix to iv. will consult GI if stool occult blood positive. H/H Q 8 Hypertension. BP still uncontrolled. Will increase Norvasc to 10mg po daily. Hyperlipidemia. She is on statins DVT prophylaxis with heparin CODE STATUS History Interval history: Still complain of chest pain abdominal pain Hospitalist Physical - Physical exam Narrative exam: Gen appearance: Not in acute distress HEENT: normocephalic, atraumatic Neck: supple, no JVD, Lungs: Clear to auscultation bilaterally, no crackles or wheezes Heart :S1 and S2 regular, no murmurs, rubs or gallop Abdomen: Soft, mild tender mid and lower abdomen, no rebound tenderness, normal bowel sounds Extremities :no edema, no clubbing or cyanosis Neuro: Awake,alert,oriented x 3, no focal neurological signs - Constitutional Vitals: Temp Pulse Resp BP Pulse Ox 98.7 F 68 18 158/64 100 05/15/17 11:34 05/15/17 11:34 05/15/17 11:34 05/15/17 11:34 05/15/17 11:34 General appearance: Present: no acute distress, well-nourished Results - Labs CBC & Chem 7: 05/15/17 04:34 05/15/17 04:34 Labs: Laboratory Last Values WBC 3.7 K/mm3 (4.5-11.0) L 05/15/17 04:34 RBC 2.90 M/mm3 (3.65-5.03) L 05/15/17 04:34 Hgb 8.8 gm/dl (10.1-14.3) L 05/15/17 04:34 Hct 26.7 % (30.3-42.9) L 05/15/17 04:34 MCV 92 fl (79-97) 05/15/17 04:34 MCH 30 pg (28-32) 05/15/17 04:34 MCHC 33 % (30-34) 05/15/17 04:34 RDW 19.6 % (13.2-15.2) H 05/15/17 04:34 Plt Count 236 K/mm3 (140-440) 05/15/17 04:34 Lymph % (Auto) 25.4 % (13.4-35.0) 05/13/17 03:48 [place] % (Auto) Manager Finance 05/15/17 04:34 Eos % (Auto) 0.6 % (0.0-4.3) 05/13/17 03:48 Baso % (Auto) 0.5 % (0.0-1.8) 05/13/17 03:48 Lymph # 1.2 K/mm3 (1.2-5.4) 05/13/17 03:48 [place] # 0.7 K/mm3 (0.0-0.8) 05/13/17 03:48 Eos # 0.0 K/mm3 (0.0-0.4) 05/13/17 03:48 Baso # 0.0 K/mm3 (0.0-0.1) 05/13/17 03:48 Add Manual Diff Complete 05/15/17 04:34 Total Counted 100 05/15/17 04:34 Seg Neutrophils % 57.8 % (40.0-70.0) 05/13/17 03:48 Seg Neuts % (Manual) 46.0 % (40.0-70.0) 05/15/17 04:34 Band Neutrophils % 3.0 % 05/15/17 04:34 Lymphocytes % (Manual) 25.0 % (13.4-35.0) 05/15/17 04:34 Reactive Lymphs % (Man) 0 % 05/15/17 04:34 Monocytes % (Manual) 16.0 % (0.0-7.3) H 05/15/17 04:34 Eosinophils % (Manual) 5.0 % (0.0-4.3) H 05/15/17 04:34 Basophils % (Manual) 0 % (0.0-1.8) 05/15/17 04:34 Metamyelocytes % 5.0 % 05/15/17 04:34 Myelocytes % 0 % 05/15/17 04:34 Promyelocytes % 0 % 05/15/17 04:34 Blast Cells % 0 % 05/15/17 04:34 Nucleated RBC % Not Reportable 05/15/17 04:34 Seg Neutrophils # 2.7 K/mm3 (1.8-7.7) 05/13/17 03:48 Seg Neutrophils # Man 1.7 K/mm3 (1.8-7.7) L 05/15/17 04:34 Band Neutrophils # 0.1 K/mm3 05/15/17 04:34 Lymphocytes # (Manual) 0.9 K/mm3 (1.2-5.4) L 05/15/17 04:34 Abs React Lymphs (Man) 0.0 K/mm3 05/15/17 04:34 Monocytes # (Manual) 0.6 K/mm3 (0.0-0.8) 05/15/17 04:34 Eosinophils # (Manual) 0.2 K/mm3 (0.0-0.4) 05/15/17 04:34 Basophils # (Manual) 0.0 K/mm3 (0.0-0.1) 05/15/17 04:34 Metamyelocytes # 0.2 K/mm3 05/15/17 04:34 Myelocytes # 0.0 K/mm3 05/15/17 04:34 Promyelocytes # 0.0 K/mm3 05/15/17 04:34 Blast Cells # 0.0 K/mm3 05/15/17 04:34 WBC Morphology Not Reportable 05/15/17 04:34 Hypersegmented Neuts Not Reportable 05/15/17 04:34 Hyposegmented Neuts Not Reportable 05/15/17 04:34 Hypogranular Neuts Not Reportable 05/15/17 04:34 Smudge Cells Not Reportable 05/15/17 04:34 Toxic Granulation Not Reportable 05/15/17 04:34 Toxic Vacuolation Not Reportable 05/15/17 04:34 Dohle Bodies Not Reportable 05/15/17 04:34 Pelger-Huet Anomaly Not Reportable 05/15/17 04:34 Angélica Rods Not Reportable 05/15/17 04:34 Platelet Estimate Appears normal 05/15/17 04:34 Clumped Platelets Not Reportable 05/15/17 04:34 Plt Clumps, EDTA Not Reportable 05/15/17 04:34 Large Platelets Not Reportable 05/15/17 04:34 Giant Platelets Not Reportable 05/15/17 04:34 Platelet Satelliting Not Reportable 05/15/17 04:34 Plt Morphology Comment Not Reportable 05/15/17 04:34 RBC Morphology Not Reportable 05/15/17 04:34 Dimorphic RBCs Not Reportable 05/15/17 04:34 Polychromasia Not Reportable 05/15/17 04:34 Hypochromasia Not Reportable 05/15/17 04:34 Poikilocytosis Not Reportable 05/15/17 04:34 Anisocytosis 1+ 05/15/17 04:34 Microcytosis Not Reportable 05/15/17 04:34 Macrocytosis Not Reportable 05/15/17 04:34 Spherocytes Not Reportable 05/15/17 04:34 Pappenheimer Bodies Not Reportable 05/15/17 04:34 Sickle Cells Not Reportable 05/15/17 04:34 Target Cells Not Reportable 05/15/17 04:34 Tear Drop Cells Not Reportable 05/15/17 04:34 Ovalocytes Not Reportable 05/15/17 04:34 Helmet Cells Not Reportable 05/15/17 04:34 Davila-Dimock Bodies Not Reportable 05/15/17 04:34 Parker Rings Not Reportable 05/15/17 04:34 Dimas Cells Not Reportable 05/15/17 04:34 Bite Cells Not Reportable 05/15/17 04:34 Crenated Cell Not Reportable 05/15/17 04:34 Elliptocytes Not Reportable 05/15/17 04:34 Acanthocytes (Spur) Not Reportable 05/15/17 04:34 Rouleaux Not Reportable 05/15/17 04:34 Hemoglobin C Crystals Not Reportable 05/15/17 04:34 Schistocytes Not Reportable 05/15/17 04:34 Malaria parasites Not Reportable 05/15/17 04:34 Burton Bodies Not Reportable 05/15/17 04:34 Hem Pathologist Commnt No 05/15/17 04:34 PT 14.0 Sec. (12.2-14.9) 05/15/17 04:34 INR 1.09 (0.87-1.13) 05/15/17 04:34 Sodium 139 mmol/L (137-145) 05/15/17 04:34 Potassium 3.7 mmol/L (3.6-5.0) 05/15/17 04:34 Chloride 93.9 mmol/L (98-107) L 05/15/17 04:34 Carbon Dioxide 30 mmol/L (22-30) 05/15/17 04:34 Anion Gap 19 mmol/L 05/15/17 04:34 BUN 28 mg/dL (7-17) H 05/15/17 04:34 Creatinine 6.9 mg/dL (0.7-1.2) H 05/15/17 04:34 Estimated GFR 7 ml/min 05/15/17 04:34 BUN/Creatinine Ratio 4.05 % 05/15/17 04:34 Glucose 72 mg/dL (65-100) 05/15/17 04:34 POC Glucose 106 (70-105) H 05/15/17 11:16 Calcium 9.5 mg/dL (8.4-10.2) 05/15/17 04:34 Total Bilirubin 0.50 mg/dL (0.1-1.2) 05/13/17 03:48 AST 11 units/L (5-40) 05/13/17 03:48 ALT 9 units/L (7-56) 05/13/17 03:48 Alkaline Phosphatase 98 units/L (35-129) 05/13/17 03:48 Total Creatine Kinase 37 units/L (30-135) 05/13/17 09:45 CK-MB (CK-2) 3.0 ng/mL (0.0-4.0) 05/13/17 09:45 CK-MB (CK-2) Rel Index 8.1 (0-4) H 05/13/17 09:45 Troponin T 0.290 ng/mL (0.00-0.029) H* 05/13/17 09:45 Total Protein 6.5 g/dL (6.3-8.2) 05/13/17 03:48 Albumin 2.9 g/dL (3.9-5) L 05/13/17 03:48 Albumin/Globulin Ratio 0.8 % 05/13/17 03:48 Triglycerides 96 mg/dL (2-149) 05/12/17 15:59 Cholesterol 212 mg/dL (50-199) H 05/12/17 15:59 LDL Cholesterol Direct 127 mg/dL (50-130) 05/12/17 15:59 HDL Cholesterol 66 mg/dL (40-59) H 05/12/17 15:59 Cholesterol/HDL Ratio 3.21 % 05/12/17 15:59 Lipase 9 units/L (13-60) L 05/12/17 15:59
[2017-05-15 16:06] LABS: Hematocrit 27.5 % (30.3-42.9); Hemoglobin 8.7 gm/dl (10.1-14.3)
[2017-05-15] MEDS: ULTRAM PO PRN (20:55)
[2017-05-15 22:13] LABS: Hematocrit 27.8 % (30.3-42.9)
[2017-05-16] MEDS: PERCOCET 5/325 PO PRN ×2 (05:11→11:13)
[2017-05-16 05:38] LABS: Hematocrit 26.7 % (30.3-42.9); Hemoglobin 8.8 gm/dl (10.1-14.3); Mean Corpuscular HGB Conc 33 % (30-34); Mean Corpuscular Hemoglobin 31 pg (28-32); Mean Corpuscular Volume 93 fl (79-97); Platelet Count 239 K/mm3 (140-440); Red Blood Count 2.86 M/mm3 (3.65-5.03); Red Cell Distribution Width 19.5 % (13.2-15.2); White Blood Count 5.1 K/mm3 (4.5-11.0)
[2017-05-16 05:44] LABS: INR 1.06 (0.87-1.13)
[2017-05-16 05:55] LABS: BUN/Creatinine Ratio 4.61; Calcium 9.3 mg/dL (8.4-10.2); Chloride 92.9 mmol/L (98-107)
[2017-05-16] MEDS ORDERED: D50W (25GM) Syringe IV ONE (07:24)
[2017-05-16] MEDS ORDERED: D50W (25GM) Vial IV PRN (07:30)
[2017-05-16] MEDS ORDERED: D50W (25GM) Syringe IV PRN (07:30)
[2017-05-16] MEDS ORDERED: VERSED ONE (08:52)
[2017-05-16] MEDS ORDERED: HEPARIN 10,000 UNITS/10 ML ONE (08:52)
[2017-05-16] MEDS ORDERED: HEPARIN/NS 5000 UNIT/500ML(CATH LAB) 1,000 ML IR ONE (08:52)
[2017-05-16] MEDS ORDERED: XYLOCAINE 2% INFILTRATI ONE (08:53)
[2017-05-16] MEDS ORDERED: SUBLIMAZE ONE (08:53)
[2017-05-16] MEDS ORDERED: NACL 0.9% 250ML 250 ML ONE (08:54)
--- NOTE | 2017-05-16 09:29 | Progress Note ---
Assessment and Plan Assessment: Syncope Recurrent atypical chest pain - currently resolved; negative lexiscan MPI stress test on 05/02/2017. CAD - PCI of RCA in 08/2016 with subsequent subacute thrombus of the proximal RCA stent and balloon angioplasty with resolution of thrombus on 11/28/2016, s/p additional PCI of RCA on 03/22/2017 @ [place] CMP - EF 30 - 35% NSVT ESRD on HD Anemia - H/H stable. Hypertension Hyperlipidemia NSTEMI type 2 PVD Tobacco use Plan: Proceed with coronary angiogram today. Await findings. The patient has been seen in conjunction with Dr. Newton who agrees with the assessment and plan of care. Subjective Date of service: 05/16/17 Principal diagnosis: syncope Interval history: Pt resting comfortably in bed, no cardiac complaints. awaiting [facility] today. c/o indigestion with every meal x the past 2 days. Objective Last Vital Signs Temp 98.1 F 05/16/17 07:55 Pulse 72 05/16/17 07:55 Resp 18 05/16/17 07:55 BP 151/67 05/16/17 07:55 Pulse Ox 100 05/16/17 07:55 - Physical Examination General: Appears Well, No Apparent Distress HEENT: Positive: PERRL, Mucus Membranes Moist Neck: Positive: neck supple, trachea midline Cardiac: Positive: Reg Rate and Rhythm, S1/S2 Lungs: Positive: clear to auscultation Neuro: Positive: Grossly Intact Abdomen: Positive: Soft, Active Bowel Sounds. Negative: Tender, Distended Skin: Positive: Clear Incision: Cardiac Cath Site Musculoskeletal: No Pain, Normal Range of Motion Extremities: Present: normal. Absent: edema - Labs and Meds Coagulation 05/16/17 Range/Units 05:04 PT 13.7 (12.2-14.9) Sec. INR 1.06 (0.87-1.13) CBC 05/15/17 05/15/17 05/16/17 Range/Units 15:07 21:03 05:04 WBC 5.1 (4.5-11.0) K/mm3 RBC 2.86 L (3.65-5.03) M/mm3 Hgb 8.7 L 9.0 L 8.8 L (10.1-14.3) gm/dl Hct 27.5 L 27.8 L 26.7 L (30.3-42.9) % Plt Count 239 (140-440) K/mm3 Comprehensive Metabolic Panel 05/16/17 Range/Units 05:04 Sodium 138 (137-145) mmol/L Potassium 4.0 (3.6-5.0) mmol/L Chloride 92.9 L (98-107) mmol/L Carbon Dioxide 29 (22-30) mmol/L BUN 36 H (7-17) mg/dL Creatinine 7.8 H (0.7-1.2) mg/dL Glucose 69 (65-100) mg/dL Calcium 9.3 (8.4-10.2) mg/dL - Imaging and Cardiology EKG: report reviewed Stress echo: report reviewed (04/2016 EF 3540% with inferior infarction no ischemia noted) Cardiac cath: report reviewed (03/2016 with a patent LAD patent circumflex patent with RCA ostial 95% lesion requiring PCI with a drug-eluting 3.5 x 12 mm stent EF 35-40%)
--- NOTE | 2017-05-16 09:49 | Progress Note ---
Assessment and Plan (1) End stage renal disease on dialysis Current Visit: Yes Status: Chronic Plan to address problem: HD today (2) Accelerated hypertension Current Visit: No Status: Acute Plan to address problem: Continue amlodipine and carvidolol for better BP control. Does increased yesterday (3) Chest pain Current Visit: Yes Status: Acute Plan to address problem: Pt had extensive cardiac work up done and with recent PCI. And s/p cardica cath today-open coronaries. But getting transfered to [place] for cardiac cath (4) Anemia in chronic kidney disease Current Visit: No Status: Acute Qualifiers: Chronic kidney disease stage: C Plan to address problem: Continue erythropoietin Subjective Date of service: 05/16/17 Principal diagnosis: syncope Interval history: S/p cardiac cath- notes reviewed. Pt getting ready for dialysis. To be transferred to [place] later today for AICD Objective - Exam Narrative Exam: Elderly -Niuean female lying in bed in no acute distress HEENT normocephalic atraumatic, pupils equal reactive to light, pink, clear oropharynx Neck supple, no thyromegaly no jugular venous distention CVS S1-S2 regular rate rhythm without murmur, rub or gallop Chest clear to auscultation Abdomen soft nondistended nontender no organomegaly no bruit bowel sounds present Extremities no edema no cyanosis or clubbing Genitourinary deferred Neuro awake, alert oriented x3 no gross deficit - Vital Signs Vital signs: Vital Signs - 12hr 05/15/17 05/15/17 05/15/17 21:55 22:00 23:04 Temperature Pulse Rate 77 Pulse Rate [ 75 Right Radial] Respiratory 18 18 Rate Blood Pressure 158/70 O2 Sat by Pulse Oximetry 05/15/17 05/15/17 05/16/17 23:08 23:47 04:00 Temperature 98.1 F 98.1 F Pulse Rate 75 71 69 Pulse Rate [ Right Radial] Respiratory 18 18 Rate Blood Pressure 166/75 161/73 O2 Sat by Pulse 98 97 Oximetry 05/16/17 05/16/17 05/16/17 05:11 06:11 07:55 Temperature 98.1 F Pulse Rate 72 Pulse Rate [ Right Radial] Respiratory 18 18 18 Rate Blood Pressure 151/67 O2 Sat by Pulse 100 Oximetry - Lab 05/16/17 05:04 05/16/17 05:04 Most recent lab results Calcium 9.3 mg/dL (8.4-10.2) 05/16/17 05:04
--- NOTE | 2017-05-16 10:17 | Event Note ---
Date: 05/16/17 s/p LHC via right femoral artery which showed patent coronaries. Pt to be transferred to [facility] where Dr. Black will be her accepting physician for AICD placement in setting of syncope, NSVT, and CMP. Quinton CERNA NP / DR. MCLEAN
[2017-05-16] MEDS ORDERED: PROTONIX PO SCH (11:00)
--- NOTE | 2017-05-16 11:11 | Cardiac Catherization Report ---
CARDIAC CATHETERIZATION INDICATION FOR PROCEDURE: The patient is 66-year-old -[place] female with history of hypertension and end-stage renal disease, on hemodialysis, known coronary artery disease with stenting of the mid RCA in the past. Also, stenting of the ostium of the RCA, is a chronic smoker, presented with a near syncopal episode and nonsustained ventricular tachycardia, and also she is anemic, scheduled for cardiac catheterization to rule out significant coronary artery disease and in consideration of ICD insertion with her symptoms and prolonged nonsustained ventricular tachycardia. The patient is getting hemodialysis 3 times a week. The patient is aware of the procedure, potential complications and alternatives of therapy available. DESCRIPTION OF PROCEDURE: The patient was brought to the catheterization laboratory in a fasting condition. Right groin area was thoroughly cleansed with Betadine solution. Sterile drapes were applied. Local anesthesia was achieved using 2% Xylocaine. Right femoral artery puncture was made using 21-gauge arterial puncture needle. Subsequently, a 5-Afghan sheath was introduced. Arteries are heavily calcified. Femoral artery is heavily calcified. 5-Afghan multipurpose catheter was used to obtain the angiograms of the left coronary artery in multiple views followed by angiograms of the right coronary artery and left ventriculogram done in [place]ILL projection using hand injection. At the end of the procedure, catheter and sheath were removed. Good hemostasis was achieved with pressure bandage. Following findings were noted. HEMODYNAMICS: 1. Opening aortic pressure 167/64, left ventricular pressure 167/20. No gradient across the aortic valve. Estimated ejection fraction 35-40%. 2. Left ventriculogram done in [place] projection using hand injection showed normal size left ventricle with moderate diffuse hypokinesis, ejection fraction 35-40% and mitral regurgitation could not be evaluated because of limited amount of dye injected. 3. Right coronary artery dominant vessel is heavily calcified with widely patent proximal and mid stents. No obstructive lesions noted. Left coronary artery similarly heavily calcified with left main, LAD, which curves around the apex and its branches and circumflex artery and its branch are without significant disease. FINAL IMPRESSION: Moderate LV dysfunction, ejection fraction of 35-40% with no significant coronary lesions with patent stents in the ostial and mid RCA. Considering patient has symptoms of near syncope and nonsustained ventricular tachycardia may benefit from ICD placement. Procedure was uncomplicated. Continue present risk factor modification and medical therapy. JOB# [id number] JOYCE/RODY
[2017-05-16] MEDS: HEPARIN SUB-Q SCH (11:14)
[2017-05-16] MEDS: PROCRIT IV PRN (13:24)
[2017-05-16] MEDS ORDERED: NACL 0.9 (PRIMING MACHINE ONLY DIALYSIS) MC ONE (14:27)
--- NOTE | 2017-05-16 15:22 | Discharge Summary ---
Providers - Providers Date of Admission: 05/12/17 20:58 Date of discharge: 05/16/17 Attending physician: RANDI ZACARIAS 05/13/17 07:35 Consult to Cardiology [CONS] Routine Consulting Provider: DIMITRIOS LO Reason For Exam: chest pain Primary care physician: PETROLEUM [employer] WORKER Hospitalization Condition: Stable Procedures: LHC via right femoral artery which showed patent coronaries. Advised Pt to be transferred to [facility] where Dr. Black will be her accepting physician for AICD placement in setting of syncope, NSVT, and CMP. Hospital course: Discharge diagnosis; Transferred to [facility] for an AICD placement Syncope Recurrent atypical chest pain CAD - PCI of RCA in 08/2016 with subsequent subacute thrombus of the proximal RCA stent and balloon angioplasty with resolution of thrombus on 11/28/2016, s/p additional PCI of RCA on 03/22/2017 @ [place] CMP - EF 30 - 35% NSVT ESRD on HD Anemia - H/H stable. Hypertension Hyperlipidemia NSTEMI type 2 PVD Tobacco use Disposition: DC/TX-70 ANOTHER TYPE HLTHCARE Time spent for discharge: 35 min Core Measure Documentation - Palliative Care Palliative Care/ Comfort Measures: Not Applicable - Core Measures Any of the following diagnoses?: heart failure - Heart Failure Discharge Requirements JENNIFER/ARB for LVSD if EF <40%: Yes Beta nikolas at discharge: Yes Exam - Constitutional Vitals: Temp Pulse Resp BP Pulse Ox 97.7 F 71 18 174/67 98 05/16/17 11:00 05/16/17 14:00 05/16/17 11:00 05/16/17 14:00 05/16/17 10:50 General appearance: Present: no acute distress, well-nourished - EENT Eyes: Present: PERRL, EOM intact - Neck Neck: Present: supple, normal ROM - Cardiovascular Rhythm: regular Heart Sounds: Present: S1 & S2 - Extremities Extremities: no ischemia, No edema - Abdominal General gastrointestinal: Present: soft, non-tender, non-distended - Integumentary Integumentary: Present: clear, warm - Musculoskeletal Musculoskeletal: strength equal bilaterally, generalized weakness - Psychiatric Psychiatric: appropriate mood/affect, cooperative - Neurologic Neurologic: CNII-XII intact, moves all extremities Plan Activity: no restrictions Diet: other (cardiac Diet as tolerated) Additional Instructions: Transfer to [facility] for AICD placement per Cardiology. Follow up with: PRIMARY CARE, [Primary Care Provider] - 7 Days CORNELIA MCLEAN MD [Staff Physician] - 7 Days
[2017-05-16] MEDS: COREG PO SCH (16:01)
[2017-05-16] MEDS: HALFPRIN EC PO SCH (16:01)
[2017-05-16] MEDS: IMDUR PO SCH (16:02)
[2017-05-16] MEDS: PLAVIX PO SCH (16:02)
[2017-05-16] MEDS: NORVASC PO SCH (16:02)
[2017-05-16 17:51] VITALS: BP 176/78
== END 2017-05-16 17:50 | disposition home health service (06) | DRG 280 ==
LOC: ED 14:47 → 4A 20:58
PROVIDERS: ADMIT Internal Medicine; ATTEND Internal Medicine
PROC: 5A1D60Z (ICD-10-PCS; 2017-05-14)
PROC: 4A023N7 Measurement of Cardiac Sampling and Pressure, Left Heart, Percutaneous Approach (ICD-10-PCS; principal; 2017-05-16)
PROC: B2111ZZ Fluoroscopy of Multiple Coronary Arteries using Low Osmolar Contrast (ICD-10-PCS; 2017-05-16)
PROC: B2151ZZ Fluoroscopy of Left Heart using Low Osmolar Contrast (ICD-10-PCS; 2017-05-16)
DX: I21.4 Non-ST elevation (NSTEMI) myocardial infarction (principal); N18.6 End stage renal disease; I42.9 Cardiomyopathy, unspecified; I47.1 Supraventricular tachycardia; I13.2 Hypertensive heart and chronic kidney disease with heart failure and with stage 5 chronic kidney disease, or end stage renal disease; K21.9 Gastro-esophageal reflux disease without esophagitis; E78.5 Hyperlipidemia, unspecified; I25.10 Atherosclerotic heart disease of native coronary artery without angina pectoris; R55 Syncope and collapse; I50.9 Heart failure, unspecified; E11.22 Type 2 diabetes mellitus with diabetic chronic kidney disease; E11.51 Type 2 diabetes mellitus with diabetic peripheral angiopathy without gangrene; M19.90 Unspecified osteoarthritis, unspecified site; J45.909 Unspecified asthma, uncomplicated; M10.9 Gout, unspecified; F17.210 Nicotine dependence, cigarettes, uncomplicated; D63.1 Anemia in chronic kidney disease; R09.02 Hypoxemia; Z86.73 Personal history of transient ischemic attack (TIA), and cerebral infarction without residual deficits; Z95.5 Presence of coronary angioplasty implant and graft; Z79.82 Long term (current) use of aspirin; Z79.899 Other long term (current) drug therapy; Z98.51 Tubal ligation status; Z82.49 Family history of ischemic heart disease and other diseases of the circulatory system
CPT/HCPCS: 36415; 71010; 80048; 80053; 80061; 82550; 82553; 82962; 83690; 84484; 85007; 85014; 85018; 85025; 85027; 85610; 93005; 93010; 93308; 93321; 93325; 93458; 96374; 96375; A9270-GY; C9113; J0360; J0885; J1170; J1644; J2250; J2405; J3010; J7030; J7050; Q9967

== ENCOUNTER 2017-06-03 01:57 | Emergency (ER) | payer MEDICARE ==
[2017-06-03] MEDS ORDERED: ZOFRAN IV ONE (03:36)
[2017-06-03] MEDS ORDERED: MORPHINE IV ONE (03:36)
--- NOTE | 2017-06-03 03:43 | Emergency Department Report ---
ED Chest Pain HPI - General Chief Complaint: Chest Pain Stated Complaint: CHEST PAIN Time Seen by Provider: 06/03/17 03:28 Source: EMS Mode of arrival: Stretcher Limitations: No Limitations - History of Present Illness Initial Comments: 66 year old female history of congestive heart failure, she was recently transferred from this hospital to [place] for AICD placement. The patient had a cardiac cath done here 2 weeks ago which did not show any significant coronary lesions. Patient came today with the main complaint of chest pain localized to that area where she had her AICD put in,also complaining of swelling at that area to. She denied any nausea or vomiting or fever recently. MD Complaint: chest pain Pain Location: left chest Severity scale (0 -10): 0 Quality: dull Other Symptoms: denies: fever - Related Data Home Medications Medication Instructions Recorded Confirmed Last Taken Aspirin EC [Aspirin Enteric Coated 81 mg PO QDAY 05/07/17 05/12/17 1 Day Ago TAB] AtorvaSTATin [Lipitor] 80 mg PO QHS 05/07/17 05/12/17 1 Day Ago Carvedilol [Coreg] 12.5 mg PO BID 05/07/17 05/12/17 1 Day Ago Clopidogrel [Plavix] 75 mg PO QDAY 05/07/17 05/12/17 1 Day Ago Lisinopril [Zestril] 20 mg PO QDAY 05/07/17 05/12/17 05/04/17 18:00 Previous Rx's Medication Instructions Recorded Last Taken Type traMADol [Ultram 50 MG tab] 50 mg PO BID PRN #30 tablet 05/07/17 1 Day Ago Rx Allergies Allergy/AdvReac Type Severity Reaction Status Date / Time No Known Allergies Allergy Verified 06/03/17 02:50 Heart Score - HEART Score History: Slightly suspicious EKG: Non-specific Age: > 65 Risk factors: 1-2 risk factors Troponin: < normal limit HEART Score: 4 - Critical Actions Critical Actions: 4-6 pts:12-16.6% risk of adverse cardiac event. Should be admitted ED Review of Systems ROS: Stated complaint: CHEST PAIN Other details as noted in HPI Comment: All other systems reviewed and negative Constitutional: denies: chills, diaphoresis Respiratory: denies: cough, shortness of breath, SOB with exertion Cardiovascular: as per HPI Gastrointestinal: denies: abdominal pain, nausea, vomiting Musculoskeletal: denies: back pain Neurological: denies: headache ED Past Medical Hx - Past Medical History Previous Medical History?: Yes Hx Hypertension: Yes Hx CVA: Yes (x 2) Hx Congestive Heart Failure: Yes Hx Diabetes: Yes Hx GERD: Yes Hx Liver Disease: Yes (LESION) Hx Renal Disease: Yes (ESRD/dialysis M, W, F) Hx Arthritis: Yes Hx Asthma: Yes Hx COPD: No Additional medical history: enlarged heart, gout - Surgical History Past Surgical History?: Yes Hx Coronary Stent: Yes Hx Appendectomy: Yes Additional Surgical History: tubal ligation, vas cath. LUE fistula. cardiac workup includes a stress test on 12/21/2016 that was unremarkable. Patient status post PCI of RCA with subsequent subacute thrombus of the proximal RCA stent and angioplasty with resolution of thrombosis on November 2016. PCI 03/22/17 of RCA. 05/01/17 neg Lexiscan stress - Social History Smoking Status: Current Every Day Smoker Substance Use Type: None - Medications Home Medications: Home Medications Medication Instructions Recorded Confirmed Last Taken Type Aspirin EC [Aspirin Enteric Coated 81 mg PO QDAY 05/07/17 05/12/17 1 Day Ago History TAB] AtorvaSTATin [Lipitor] 80 mg PO QHS 05/07/17 05/12/17 1 Day Ago History Carvedilol [Coreg] 12.5 mg PO BID 05/07/17 05/12/17 1 Day Ago History Clopidogrel [Plavix] 75 mg PO QDAY 05/07/17 05/12/17 1 Day Ago History Lisinopril [Zestril] 20 mg PO QDAY 05/07/17 05/12/17 05/04/17 18:00 History traMADol [Ultram 50 MG tab] 50 mg PO BID PRN #30 tablet 05/07/17 05/12/17 1 Day Ago Rx ED Physical Exam - General Limitations: No Limitations General appearance: alert, in no apparent distress - Head Head exam: Present: atraumatic, normocephalic - Eye Eye exam: Present: normal appearance - ENT ENT exam: Present: normal exam - Neck Neck exam: Present: normal inspection - Respiratory Respiratory exam: Present: normal lung sounds bilaterally, chest wall tenderness , other (recent surgical scar at left lower chest. Swelling and tenderness present). Absent: respiratory distress - Cardiovascular Cardiovascular Exam: Present: regular rate, normal rhythm, normal heart sounds - GI/Abdominal GI/Abdominal exam: Present: soft. Absent: distended, tenderness, guarding - Extremities Exam Extremities exam: Present: normal inspection - Back Exam Back exam: Present: normal inspection. Absent: CVA tenderness (R), CVA tenderness (L) - Neurological Exam Neurological exam: Present: alert, oriented X3, CN II-XII intact - Skin Skin exam: Present: warm, normal color ED Course Vital Signs 06/03/17 06/03/17 06/03/17 03:04 03:06 03:17 Temperature 98 F 99 F Pulse Rate 87 87 Respiratory 18 18 18 Rate Blood Pressure 171/78 171/78 [Left] O2 Sat by Pulse 100 100 Oximetry 06/03/17 06/03/17 04:17 04:21 Temperature 99 F Pulse Rate 88 Respiratory 18 18 Rate Blood Pressure 124/71 [Left] O2 Sat by Pulse 100 Oximetry - Reevaluation(s) Reevaluation #1: 06/03/17 05:[address] SALAS WHO ADVISED TO TRANSFER PATIENT TO [place] FOR FURTHER MANAGEMENT. MONE score - Mone Score Age > 65: (1) Yes Aspirin use within the Past 7 Days: (1) Yes 3 or more CAD Risk Factors: (1) Yes 2 or more Angina events in past 24 hrs: (0) No Known CAD with more than 50% Stenosis: (1) Yes Elevated Cardiac Markers: (1) Yes ST Deviation Greater than 0.5mm: (0) No MONE Score: 5 Critical care attestation.: If time is entered above; I have spent that time in minutes in the direct care of this critically ill patient, excluding procedure time. ED Disposition Clinical Impression: Chest pain, Post-operative complication Disposition: DC/TX-70 ANOTHER TYPE HLTHCARE Is pt being admited?: No Does the pt Need Aspirin: Yes Condition: Stable Instructions: Chest Pain (ED) Referrals: PRIMARY CARE,MD [Primary Care Provider] - 3-5 Days
--- NOTE | 2017-06-03 04:46 | Ultrasound Report ---
FINAL REPORT PROCEDURE: US ABDOMEN LIMITED TECHNIQUE: Real-time sonography was performed of the left anterior chest wall with image documentation. CPT 85283 HISTORY: LEFT CHEST WALL SWELLING, R/O ABSCESS COMPARISON: No prior studies are available for comparison. FINDINGS: There is a semi loculated complex fluid collection measuring 7 x 3.1 x 5 centimeters. This could be a hematoma. Abscess is considered less likely.. IMPRESSION: There is a semi loculated complex fluid collection measuring 7 x 3.1 x 5 centimeters. This could be a hematoma. Abscess is considered less likely..
[2017-06-03] MEDS ORDERED: BABY ASPIRIN PO ONE (05:12)
[2017-06-03 05:15] LABS: Albumin 3.1 g/dL (3.9-5); Albumin/Globulin Ratio 0.8 %; BUN/Creatinine Ratio 5.78; Bilirubin,Total 0.2 mg/dL (0.1-1.2); Calcium 9.5 mg/dL (8.4-10.2); Chloride 95.5 mmol/L (98-107); Potassium 3.8 mmol/L (3.6-5.0); Total Protein 6.8 g/dL (6.3-8.2)
[2017-06-03] MEDS ORDERED: VANCOMYCIN/NS 1 GM/250 ML 1 GM/250 ML BAG IV ONE (05:21)
[2017-06-03 05:22] LABS: Hematocrit 25.8 % (30.3-42.9); Hemoglobin 8.6 gm/dl (10.1-14.3); Mean Corpuscular HGB Conc 33 % (30-34); Mean Corpuscular Hemoglobin 31 pg (28-32); Mean Corpuscular Volume 92 fl (79-97); Platelet Count 352 K/mm3 (140-440); Red Blood Count 2.81 M/mm3 (3.65-5.03); Red Cell Distribution Width 19.9 % (13.2-15.2)
[2017-06-03 07:12] LABS: Anisocytosis 1+; Basophils % (Manual) 0 % (0.0-1.8); Blastocytes % (Manual) 0 %; Elliptocytes Rare; Eosinophils % (Manual) 0 % (0.0-4.3); Hypochromasia 1+; Ovalocytes 1+
[2017-06-03 07:13] LABS: Diff Status Complete; Smudge Cells Rare
[2017-06-03 09:52] VITALS: BP 150/64
== END 2017-06-03 09:51 | disposition other institution (70) ==
LOC: ED 01:57
DX: T82.898A Other specified complication of vascular prosthetic devices, implants and grafts, initial encounter (principal); Y84.8 Other medical procedures as the cause of abnormal reaction of the patient, or of later complication, without mention of misadventure at the time of the procedure; I10 Essential (primary) hypertension; I50.9 Heart failure, unspecified; E11.9 Type 2 diabetes mellitus without complications; K21.9 Gastro-esophageal reflux disease without esophagitis; J45.909 Unspecified asthma, uncomplicated; F17.200 Nicotine dependence, unspecified, uncomplicated
CPT/HCPCS: 36415; 76705; 80053; 80061; 84484; 85007; 85025; 93005; 93010; 96365; 96375; 99285; J2270; J2405; J3370

== ENCOUNTER 2017-06-15 10:20 | Inpatient (IN) | payer MEDICARE ==
[2017-06-15 11:53] LABS: Basophils % (Auto) 0.7 % (0.0-1.8); Eosinophils % (Auto) 0.9 % (0.0-4.3); Hematocrit 24.6 % (30.3-42.9); Mean Corpuscular HGB Conc 32 % (30-34); Mean Corpuscular Hemoglobin 29 pg (28-32); Mean Corpuscular Volume 91 fl (79-97); Platelet Count 343 K/mm3 (140-440); Red Blood Count 2.72 M/mm3 (3.65-5.03); Red Cell Distribution Width 19.7 % (13.2-15.2); White Blood Count 5.7 K/mm3 (4.5-11.0)
[2017-06-15 12:09] LABS: BUN/Creatinine Ratio 9.48; Calcium 8.2 mg/dL (8.4-10.2); Chloride 97.7 mmol/L (98-107); Potassium 4.6 mmol/L (3.6-5.0)
[2017-06-15] MEDS ORDERED: ZOFRAN IV ONE (12:24)
[2017-06-15] MEDS ORDERED: MORPHINE IV ONE (12:24)
[2017-06-15] MEDS ORDERED: ASPIRIN PO ONE (12:26)
--- NOTE | 2017-06-15 12:33 | Emergency Department Report ---
HPI - General Chief Complaint: Chest Pain Time Seen by Provider: 06/15/17 12:14 - HPI HPI: Room 4 The patient is a 66-year-old female presented with a chief complaint chest pain. Patient states her symptoms began this morning at 02:30 with anterior chest pain described as a pressure. Patient states pain is associated with shortness of breath. Patient denies nausea/vomiting or diaphoresis. Patient claims the pain in the left upper extremity. The patient currently gives her pain score of 8/10. Of note the patient had a cardiac stent placed approximately 4 weeks ago at [place] states the pain feels "about the same" as it did pre-stent. Location: Chest, see above Duration: Constant since 02:30 Quality: Pressure Severity: 8/10 Modifying factors: [see above] Context: [see above] Mode of transportation: [not driving] ED Past Medical Hx - Past Medical History Hx Hypertension: Yes Hx CVA: Yes (x 2) Hx Congestive Heart Failure: Yes Hx Diabetes: Yes Hx GERD: Yes Hx Liver Disease: Yes (LESION) Hx Renal Disease: Yes (ESRD/dialysis M, W, F) Hx Arthritis: Yes Hx Asthma: Yes Additional medical history: enlarged heart, gout - Surgical History Hx Coronary Stent: Yes Hx Appendectomy: Yes Additional Surgical History: tubal ligation, vas cath. LUE fistula. cardiac workup includes a stress test on 12/21/2016 that was unremarkable. Patient status post PCI of RCA with subsequent subacute thrombus of the proximal RCA stent and angioplasty with resolution of thrombosis on November 2016. PCI 03/22/17 of RCA. 05/01/17 neg Lexiscan stress - Family History Family history: no significant - Social History Smoking Status: Current Every Day Smoker Substance Use Type: None (denies illicit drug use) - Medications Home Medications: Home Medications Medication Instructions Recorded Confirmed Last Taken Type Aspirin EC [Aspirin Enteric Coated 81 mg PO QDAY 05/07/17 05/12/17 1 Day Ago History TAB] AtorvaSTATin [Lipitor] 80 mg PO QHS 05/07/17 05/12/17 1 Day Ago History Carvedilol [Coreg] 12.5 mg PO BID 05/07/17 05/12/17 1 Day Ago History Clopidogrel [Plavix] 75 mg PO QDAY 05/07/17 05/12/17 1 Day Ago History Lisinopril [Zestril] 20 mg PO QDAY 05/07/17 05/12/17 05/04/17 18:00 History traMADol [Ultram 50 MG tab] 50 mg PO BID PRN #30 tablet 05/07/17 05/12/17 1 Day Ago Rx ED Review of Systems ROS: Stated complaint: CHEST PAIN Other details as noted in HPI Comment: All other systems reviewed and negative Constitutional: denies: chills, diaphoresis, fever Eyes: denies: eye pain, eye discharge, vision change ENT: denies: ear pain, throat pain Respiratory: shortness of breath Cardiovascular: chest pain Endocrine: no symptoms reported Gastrointestinal: abdominal pain. denies: nausea, vomiting Genitourinary: denies: urgency, dysuria, discharge Musculoskeletal: denies: back pain, joint swelling, arthralgia Skin: denies: rash, lesions Neurological: denies: headache, weakness, paresthesias Psychiatric: denies: anxiety, depression Hematological/Lymphatic: denies: easy bleeding, easy bruising Physical Exam - Physical Exam Vital Signs: Vital Signs 06/15/17 06/15/17 10:32 11:33 Temperature 98.3 F Pulse Rate 82 Respiratory 18 18 Rate Blood Pressure 156/59 O2 Sat by Pulse 98 98 Oximetry Physical Exam: GENERAL: The patient is well-developed well-nourished female lying on stretcher not appearing to be in acute distress. [] HEENT: Normocephalic. Atraumatic. Extraocular motions are intact. Patient has moist mucous membranes. NECK: Supple. Trachea midline CHEST/LUNGS: Clear to auscultation. There is no respiratory distress noted. HEART/CARDIOVASCULAR: Regular. There is no tachycardia. There is no gallop rub or murmur. ABDOMEN: Abdomen is soft. Patient has normal bowel sounds. There is no abdominal distention. SKIN: There is no rash. There is no diaphoresis. NEURO: The patient is awake, alert, and oriented. The patient is cooperative. The patient has normal speech MUSCULOSKELETAL: There is no evidence of acute injury. ED Course Vital Signs 06/15/17 06/15/17 10:32 11:33 Temperature 98.3 F Pulse Rate 82 Respiratory 18 18 Rate Blood Pressure 156/59 O2 Sat by Pulse 98 98 Oximetry ED Medical Decision Making - Lab Data Result diagrams: 06/15/17 11:39 06/15/17 11:39 Laboratory Tests 06/15/17 06/15/17 11:39 11:39 WBC 5.7 RBC 2.72 L Hgb 8.0 L Hct 24.6 L MCV 91 MCH 29 MCHC 32 RDW 19.7 H Plt Count 343 Lymph % (Auto) 29.6 [place] % (Auto) 10.8 H Eos % (Auto) 0.9 Baso % (Auto) 0.7 Lymph # 1.7 [place] # 0.6 Eos # 0.0 Baso # 0.0 Seg Neutrophils % 58.0 Seg Neutrophils # 3.3 Sodium 142 Potassium 4.6 Chloride 97.7 L Carbon Dioxide 26 Anion Gap 23 BUN 73 H Creatinine 7.7 H Estimated GFR 6 BUN/Creatinine Ratio 9.48 Glucose 64 L Calcium 8.2 L Troponin T 0.076 H - EKG Data -: EKG Interpreted by Me EKG shows normal: sinus rhythm Rate: normal - EKG Data When compared to previous EKG there are: previous EKG unavailable Interpretation: nonspecific ST-T wave annamarie (biphasic T waves in leads 1, aVL, aVF ) - Radiology Data Radiology results: image reviewed (chest x-ray) interpreted by me: Chest [id number]. No focal infiltrates, no pneumothorax - Differential Diagnosis ACS, GERD, pericarditis Critical care attestation.: If time is entered above; I have spent that time in minutes in the direct care of this critically ill patient, excluding procedure time. ED Disposition Clinical Impression: Chest pain Disposition: -09 OP ADMIT IP TO THIS HOSP Is pt being admited?: Yes Does the pt Need Aspirin: Yes Condition: Fair Instructions: Chest Pain (ED) Referrals: PRIMARY CARE, [Primary Care Provider] - 3-5 Days Time of Disposition: 12:59
--- NOTE | 2017-06-15 12:45 | History and Physical Report ---
History of Present Illness Chief complaint: MY chest is hurting History of present illness: 66 YO Female with HTN, CVA, CHF, DM, GERD, ESRD on HD(M,W,F), OA, Asthma, Gout, CAD S/P Stent placement, presents to ED for evaluation. Pt states that she experienced pain in her chest that began this morning at 0230 Hrs. Pain is 8/10 , constant, substernal, nonradiating, and is associated with shortness of breath , Not worsened with exertion, or relieved with rest. Patient denies nausea/ vomiting or diaphoresis, fever, chills, palpitations,syncope, BRBPR, productive cough, recent ill contacts, prolonged travel/immobility, individual/family history of DVT/PE, unintentional weight loss, night sweats. Past History Past Medical History: arthritis, CAD, diabetes, ESRD, GERD, heart failure, hypertension, stroke Past Surgical History: Other (Tubal ligation, vas cath, AVF,) Social history: , smoking. denies: alcohol abuse, prescription drug abuse, IV drug use Family history: diabetes, hypertension Medications and Allergies Allergies Allergy/AdvReac Type Severity Reaction Status Date / Time No Known Allergies Allergy Verified 06/15/17 10:31 Home Medications Medication Instructions Recorded Confirmed Last Taken Type Aspirin EC [Aspirin Enteric Coated 81 mg PO QDAY 05/07/17 06/15/17 06/14/17 History TAB] AtorvaSTATin [Lipitor] 80 mg PO QHS 05/07/17 06/15/17 06/14/17 History Carvedilol [Coreg] 12.5 mg PO BID 05/07/17 06/15/17 06/14/17 History Clopidogrel [Plavix] 75 mg PO QDAY 05/07/17 06/15/17 06/14/17 History Lisinopril [Zestril] 20 mg PO QDAY 05/07/17 06/15/17 06/14/17 History traMADol [Ultram 50 MG tab] 50 mg PO BID PRN #30 tablet 05/07/17 06/15/17 1 Day Ago Rx Review of Systems Constitutional: no weight loss, no weight gain, no fever, no chills Ears, nose, mouth and throat: no ear pain, no ear discharge, no tinnitis, no decreased hearing, no nose pain, no nasal congestion Breasts: no change in shape, no swelling, no mass Cardiovascular: chest pain, no palpitations, no rapid/irregular heart beat, no syncope, no lightheadedness, no dyspnea on exertion, no paroxysmal nocturnal dyspnea, no claudication, no phlebitis Respiratory: no cough, no cough with sputum, no excessive sputum, no hemoptysis , no shortness of breath Gastrointestinal: no nausea, no vomiting, no diarrhea, no constipation Genitourinary Female: no pelvic pain, no flank pain, no menorrhagia, no dysuria Rectal: no pain, no incontinence, no bleeding Musculoskeletal: no neck stiffness, no neck pain, no shooting arm pain, no arm numbness/tingling, no low back pain, no shooting leg pain Integumentary: no rash, no pruritis, no redness, no sores, no wounds, no jaundice Neurological: no head injury, no transient paralysis, no paralysis, no weakness , no parathesias, no numbness, no tingling, no seizures Psychiatric: no anxiety, no memory loss, no change in sleep habits, no sleep disturbances, no insomnia, no hypersomnia, no change in appetite, no change in libido, no suicidal ideation Endocrine: no cold intolerance, no heat intolerance, no polyphagia, no excessive thirst, no polydipsia, no polyuria, no nocturia, no excessive sweating Hematologic/Lymphatic: no easy bruising, no easy bleeding Allergic/Immunologic: no urticaria, no allergic rhinitis, no wheezing Exam - Constitutional Vitals: Temp Pulse Resp BP Pulse Ox 98.3 F 82 18 156/59 98 06/15/17 10:32 06/15/17 10:32 06/15/17 11:33 06/15/17 10:32 06/15/17 11:33 General appearance: Present: mild distress - EENT Eyes: Present: PERRL ENT: hearing intact, clear oral mucosa - Neck Neck: Present: supple, normal ROM - Respiratory Respiratory: bilateral: diminished - Cardiovascular Heart Sounds: Present: S1 & S2. Absent: rub, click - Extremities Extremities: pulses symmetrical, No edema Extremity abnormal: edema Peripheral Pulses: within normal limits - Abdominal General gastrointestinal: Present: soft, non-tender, non-distended, normal bowel sounds Female genitourinary: Present: normal - Integumentary Integumentary: Present: clear, warm, dry - Musculoskeletal Musculoskeletal: gait normal, strength equal bilaterally - Psychiatric Psychiatric: appropriate mood/affect, intact judgment & insight - Neurologic Neurologic: CNII-XII intact, moves all extremities Results - Labs CBC & Chem 7: 06/15/17 11:39 06/15/17 11:39 Labs: Abnormal lab results 06/15/17 06/15/17 Range/Units 11:39 11:39 RBC 2.72 L (3.65-5.03) M/mm3 Hgb 8.0 L (10.1-14.3) gm/dl Hct 24.6 L (30.3-42.9) % RDW 19.7 H (13.2-15.2) % [place] % (Auto) 10.8 H (0.0-7.3) % Chloride 97.7 L (98-107) mmol/L BUN 73 H (7-17) mg/dL Creatinine 7.7 H (0.7-1.2) mg/dL Glucose 64 L (65-100) mg/dL Calcium 8.2 L (8.4-10.2) mg/dL Troponin T 0.076 H (0.00-0.029) ng/mL Assessment and Plan - Patient Problems (1) ACS (acute coronary syndrome) Current Visit: Yes Status: Acute Plan to address problem: Serial cardiac enzymes, ekg, telemetry, cardiology consulted. (2) CHF (congestive heart failure) Current Visit: Yes Status: Acute Qualifiers: Congestive heart failure type: C Congestive heart failure chronicity: C Plan to address problem: Afterload reduction, fluid restriction, monitor uop q shift, supplemental oxygen , resume medical therapy, telemetry, cardiology consulted. (3) ESRD (end stage renal disease) on dialysis Current Visit: Yes Status: Acute Plan to address problem: Nephrology consulted, dialysis as per renal team. (4) CAD (coronary artery disease) Current Visit: Yes Status: Acute Qualifiers: Coronary Disease-Associated Artery/Lesion type: C [place] vs. transplanted heart: N Associated angina: A Plan to address problem: Stable angina: serial cardiac enzymes, resume current therapy, supportive care, continue medical management (5) DVT prophylaxis Current Visit: Yes Status: Acute
[2017-06-15] MEDS ORDERED: ZOFRAN IV PRN (12:52)
[2017-06-15] MEDS ORDERED: DULCOLAX PR PRN (12:52)
[2017-06-15] MEDS ORDERED: MILK OF MAGNESIA PO PRN (12:52)
[2017-06-15] MEDS ORDERED: PROVENTIL IH PRN (12:52)
[2017-06-15] MEDS ORDERED: TYLENOL PO PRN (12:52)
--- NOTE | 2017-06-15 13:04 | XRay Report ---
AP CHEST: HISTORY: chest pain Pulmonary venous congestion has resolved since 05/12/17. Cardiomegaly is stable. The lungs are clear. Normal bony structures. IMPRESSION: Cardiomegaly. Lungs clear.
[2017-06-15] MEDS: MORPHINE IV PRN ×2 (17:50→21:05)
[2017-06-15] MEDS ORDERED: NACL 0.9% 100 ML IV PRN (21:30)
[2017-06-16] MEDS: MORPHINE IV PRN ×4 (00:29→11:59)
[2017-06-16] MEDS ORDERED: NACL 0.9 (PRIMING MACHINE ONLY DIALYSIS) MC ONE (11:44)
[2017-06-16] MEDS ORDERED: Fluarix Quad 2017-2018(36 MOS+) IM ONE (12:00)
--- NOTE | 2017-06-16 13:06 | Progress Note ---
Assessment and Plan Assessment and plan: --Acute coronary syndrome; nonspecific elevation of cardiac enzymes, rule out non-ST elevation AK Continue cardiac medications, follow cardiology evaluation and recommendations --End-stage renal disease; on hemodialysis per schedule Avoid nephrotoxic medication, nephrology following --Diastolic congestive heart failure, continue current management --History of coronary artery disease status post PCI Continue current cardiac medications, cardiology evaluation --History of ischemic cardiomyopathy ejection fraction of 30 -35% Continue anti-failure medications, cardiology following --Hypertension; moderate control, continue current antihypertensives --Dyslipidemia; stable on lipid-lowering medication --H/o peripheral vascular disease; supportive care --Ongoing tobacco use; consulted and patient strongly advised tobacco verbalized understanding -DVT prophylaxis. Heparin renal dose --Full code Status History Interval history: Patient feels slightly better no new complaints Vital signs reviewed Scheduled for hemodialysis today Hospitalist Physical - Constitutional Vitals: Temp Pulse Resp BP Pulse Ox 98.3 F 73 18 152/72 96 06/16/17 10:45 06/16/17 12:52 06/16/17 11:59 06/16/17 12:52 06/16/17 04:44 General appearance: Present: no acute distress, well-nourished - EENT Eyes: Present: PERRL, EOM intact - Neck Neck: Present: supple, normal ROM - Respiratory Respiratory effort: normal Respiratory: bilateral: CTA, negative: diminished, rales, rhonchi, wheezing - Cardiovascular Rhythm: regular Heart Sounds: Present: S1 & S2 - Extremities Extremities: no ischemia, pulses intact Peripheral Pulses: within normal limits - Abdominal General gastrointestinal: soft, non-tender, non-distended, normal bowel sounds - Integumentary Integumentary: Present: clear, warm - Psychiatric Psychiatric: appropriate mood/affect, cooperative - Neurologic Neurologic: CNII-XII intact, moves all extremities Results - Labs CBC & Chem 7: 06/15/17 11:39 06/15/17 11:39 Labs: Laboratory Last Values WBC 5.7 K/mm3 (4.5-11.0) 06/15/17 11:39 RBC 2.72 M/mm3 (3.65-5.03) L 06/15/17 11:39 Hgb 8.0 gm/dl (10.1-14.3) L 06/15/17 11:39 Hct 24.6 % (30.3-42.9) L 06/15/17 11:39 MCV 91 fl (79-97) 06/15/17 11:39 MCH 29 pg (28-32) 06/15/17 11:39 MCHC 32 % (30-34) 06/15/17 11:39 RDW 19.7 % (13.2-15.2) H 06/15/17 11:39 Plt Count 343 K/mm3 (140-440) 06/15/17 11:39 Lymph % (Auto) 29.6 % (13.4-35.0) 06/15/17 11:39 [place] % (Auto) 10.8 % (0.0-7.3) H 06/15/17 11:39 Eos % (Auto) 0.9 % (0.0-4.3) 06/15/17 11:39 Baso % (Auto) 0.7 % (0.0-1.8) 06/15/17 11:39 Lymph # 1.7 K/mm3 (1.2-5.4) 06/15/17 11:39 [place] # 0.6 K/mm3 (0.0-0.8) 06/15/17 11:39 Eos # 0.0 K/mm3 (0.0-0.4) 06/15/17 11:39 Baso # 0.0 K/mm3 (0.0-0.1) 06/15/17 11:39 Seg Neutrophils % 58.0 % (40.0-70.0) 06/15/17 11:39 Seg Neutrophils # 3.3 K/mm3 (1.8-7.7) 06/15/17 11:39 Sodium 142 mmol/L (137-145) 06/15/17 11:39 Potassium 4.6 mmol/L (3.6-5.0) 06/15/17 11:39 Chloride 97.7 mmol/L (98-107) L 06/15/17 11:39 Carbon Dioxide 26 mmol/L (22-30) 06/15/17 11:39 Anion Gap 23 mmol/L 06/15/17 11:39 BUN 73 mg/dL (7-17) H 06/15/17 11:39 Creatinine 7.7 mg/dL (0.7-1.2) H 06/15/17 11:39 Estimated GFR 6 ml/min 06/15/17 11:39 BUN/Creatinine Ratio 9.48 % 06/15/17 11:39 Glucose 64 mg/dL (65-100) L 06/15/17 11:39 Calcium 8.2 mg/dL (8.4-10.2) L 06/15/17 11:39 Troponin T 0.075 ng/mL (0.00-0.029) H 06/15/17 16:24 Triglycerides 55 mg/dL (2-149) 06/15/17 11:39 Cholesterol 115 mg/dL (50-199) 06/15/17 11:39 LDL Cholesterol Direct 41 mg/dL (50-130) L 06/15/17 11:39 HDL Cholesterol 63 mg/dL (40-59) H 06/15/17 11:39 Cholesterol/HDL Ratio 1.82 % 06/15/17 11:39
--- NOTE | 2017-06-16 13:14 | Consultation ---
History of Present Illness - Reason for Consult Consult date: 06/16/17 end stage renal disease Requesting physician: CHELITA ELAINE - History of Present Illness This is a 66-year-old F with a history of end-stage renal disease on HD, hypertension and coronary disease. Several hospitalizations with chest/ abdominal pain, again admitted after she presented with chest/abdominal pain 10 /10 in severity and with no associated N/V/D. No aggravating relieving factors. Pt missed her last dialysis on Sunday due to above symptoms. Denies fever, chills, nausea, vomiting, diarrhea, constipation. Pt had PCI at [facility] [place] about 4 weeks ago. Past History Past Medical History: arthritis, CAD, diabetes, ESRD, GERD, heart failure, hypertension, stroke Past Surgical History: Other (Tubal ligation, vas cath, AVF,) Social history: , smoking. denies: alcohol abuse, prescription drug abuse, IV drug use Family history: diabetes, hypertension Medications and Allergies Allergies Allergy/AdvReac Type Severity Reaction Status Date / Time No Known Allergies Allergy Verified 06/15/17 10:31 Home Medications Medication Instructions Recorded Confirmed Last Taken Type Aspirin EC [Aspirin Enteric Coated 81 mg PO QDAY 05/07/17 06/15/17 06/14/17 History TAB] AtorvaSTATin [Lipitor] 80 mg PO QHS 05/07/17 06/15/17 06/14/17 History Carvedilol [Coreg] 12.5 mg PO BID 05/07/17 06/15/17 06/14/17 History Clopidogrel [Plavix] 75 mg PO QDAY 05/07/17 06/15/17 06/14/17 History Lisinopril [Zestril] 20 mg PO QDAY 05/07/17 06/15/17 06/14/17 History traMADol [Ultram 50 MG tab] 50 mg PO BID PRN #30 tablet 05/07/17 06/15/17 1 Day Ago Rx Active Meds: Active Medications Acetaminophen (Tylenol) 650 mg PO Q4H PRN PRN Reason: Pain MILD(1-3)/Fever >100.5/SANCHEZ Albuterol (Proventil) 2.5 mg IH Q4HRT PRN PRN Reason: Shortness Of Breath Bisacodyl (Dulcolax) 10 mg NC QDAY PRN PRN Reason: Constipation unrelieved by MOM Sodium Chloride (Nacl 0.9%) 100 mls @ 999 mls/hr IV JOAN PRN PRN Reason: Hypotension Magnesium Hydroxide (Milk Of Magnesia) 30 ml PO Q4H PRN PRN Reason: Constipation Morphine Sulfate (Morphine) 2 mg IV Q3H PRN PRN Reason: Pain, Moderate (4-6) Last Admin: 06/16/17 11:59 Dose: 2 mg Ondansetron HCl (Zofran) 4 mg IV Q8H PRN PRN Reason: N/V unrelieved by Reglan Review of Systems All systems: negative Constitutional: weakness Cardiovascular: chest pain Gastrointestinal: abdominal pain Exam - Vital Signs Vital signs: Vital Signs BP Pulse Ox 156/59 98 06/15/17 10:28 06/15/17 10:28 - General Appearance General appearance: well-developed, well-nourished, appears stated age EENT: ATNC, PERRL, mucous membranes moist Neck: Present: neck supple Respiratory: Clear to Ascultation Heart: regular, S1S2 Gastrointestinal: Present: normal, normoactive bowel sounds Integumentary: no rash, other (no edema ) Neurologic: no focal deficit, alert and oriented x3, strength 5/5, CN 3-12 intact Psychiatric: mood/affect appropriate, cooperative Results - Lab Results 06/15/17 11:39 06/15/17 11:39 Most recent lab results Calcium 8.2 mg/dL (8.4-10.2) L 06/15/17 11:39 Assessment and Plan - Patient Problems (1) ESRD (end stage renal disease) on dialysis Current Visit: Yes Status: Acute Plan to address problem: HD today, then to resume maintenance HD on MWF schedule (2) ACS (acute coronary syndrome) Current Visit: Yes Status: Acute Plan to address problem: follow cardio recs (3) CAD (coronary artery disease) Current Visit: Yes Status: Acute Qualifiers: Coronary Disease-Associated Artery/Lesion type: C [place] vs. transplanted heart: N Associated angina: A (4) Anemia in chronic kidney disease Current Visit: No Status: Acute Qualifiers: Chronic kidney disease stage: C Plan to address problem: cont EPO with HD
[2017-06-16] MEDS ORDERED: MORPHINE IV PRN ×2 (14:39→14:40)
[2017-06-16] MEDS: ULTRAM PO PRN ×2 (14:56→20:46)
--- NOTE | 2017-06-16 15:00 | Consultation ---
History of Present Illness Consult date: 06/16/17 Past History Past Medical History: arthritis, CAD, diabetes, ESRD, GERD, heart failure, hypertension, stroke Past Surgical History: Other (Tubal ligation, vas cath, AVF,) Social history: , smoking. denies: alcohol abuse, prescription drug abuse, IV drug use Family history: diabetes, hypertension Medications and Allergies Allergies Allergy/AdvReac Type Severity Reaction Status Date / Time No Known Allergies Allergy Verified 06/15/17 10:31 Home Medications Medication Instructions Recorded Confirmed Last Taken Type Aspirin EC [Aspirin Enteric Coated 81 mg PO QDAY 05/07/17 06/15/17 06/14/17 History TAB] AtorvaSTATin [Lipitor] 80 mg PO QHS 05/07/17 06/15/17 06/14/17 History Carvedilol [Coreg] 12.5 mg PO BID 05/07/17 06/15/17 06/14/17 History Clopidogrel [Plavix] 75 mg PO QDAY 05/07/17 06/15/17 06/14/17 History Lisinopril [Zestril] 20 mg PO QDAY 05/07/17 06/15/17 06/14/17 History traMADol [Ultram 50 MG tab] 50 mg PO BID PRN #30 tablet 05/07/17 06/15/17 1 Day Ago Rx Active Meds: Active Medications Acetaminophen (Tylenol) 650 mg PO Q4H PRN PRN Reason: Pain MILD(1-3)/Fever >100.5/SANCHEZ Albuterol (Proventil) 2.5 mg IH Q4HRT PRN PRN Reason: Shortness Of Breath Aspirin (Halfprin Ec) 81 mg PO QDAY ETHAN Atorvastatin Calcium (Lipitor) 80 mg PO QHS ETHAN Bisacodyl (Dulcolax) 10 mg [place] QDAY PRN PRN Reason: Constipation unrelieved by MOM Carvedilol (Coreg) 12.5 mg PO BID ETHAN Clopidogrel Bisulfate (Plavix) 75 mg PO QDAY ETHAN Epoetin Reece (Epogen) 20,000 unit IV JOAN ETHAN Sodium Chloride (Nacl 0.9%) 100 mls @ 999 mls/hr IV JOAN PRN PRN Reason: Hypotension Lisinopril (Zestril) 20 mg PO QDAY ETHAN Magnesium Hydroxide (Milk Of Magnesia) 30 ml PO Q4H PRN PRN Reason: Constipation Morphine Sulfate (Morphine) 1 mg IV Q8H PRN PRN Reason: Pain, Moderate (4-6) Ondansetron HCl (Zofran) 4 mg IV Q8H PRN PRN Reason: N/V unrelieved by Reglan Tramadol HCl (Ultram) 50 mg PO BID PRN PRN Reason: Pain Last Admin: 06/16/17 14:56 Dose: 50 mg Physical Examination Vital Signs BP Pulse Ox 156/59 98 06/15/17 10:28 06/15/17 10:28 Results 06/15/17 11:39 06/15/17 11:39 Assessment and Plan Detailed Cardiology consult dictated.
[2017-06-16] MEDS: COREG PO SCH ×2 (20:46→22:10)
--- NOTE | 2017-06-17 03:38 | Consultation ---
AGE: 66. SEX: Female. REFERRING PHYSICIAN: Leela Rider MD. HISTORY OF PRESENT ILLNESS: A 66-year-old thin built, pleasant -[place] woman with a history of multiple medical problems as hypertension, hyperlipidemia, chronic kidney disease (on chronic hemodialysis), known calcific coronary artery disease, known to have stents in the right coronary artery, was admitted with substernal chest pains, tightness like, not related to exertion for the past one to two days. It was associated with shortness of breath. She did not have any nausea, vomiting, palpitations, dizziness, presyncope or syncope. His chest pain is rather atypical and is pleuritic in nature. Her serum troponins were minimally increased at 0.076, 0.071, and 0.075. PAST MEDICAL HISTORY: History of CVA, CHF, GERD, gout. She has had tubal ligation surgery years ago. She had surgery for AV fistula placement in the past. SOCIAL HISTORY: She was a smoker for about 20 years. She used to smoke 3 or 4 cigarettes per day. She quit smoking 4 days ago. No history of alcoholic or drug abuse. FAMILY HISTORY: Negative for premature coronary artery disease. PAST CARDIAC HISTORY: On 05/02/2017, she had a Lexiscan stress nuclear scan, revealed small mild fixed inferior wall perfusion defect with minimal reversibility, cardiomyopathy with LVEF around 44% was seen. Her cardiac catheterization on 05/16/2017 revealed moderate global left ventricular systolic dysfunction with LVEF around 35-40%. Patent stent in the right coronary artery and also densely calcified right coronary artery and also left coronary artery. Also, history of bronchial asthma in the past. REVIEW OF SYSTEMS: CARDIOVASCULAR: As described in the history. PULMONARY: As described in the history. GENITOURINARY: As described in the history. GI: She has had an appendectomy several years ago. NEUROLOGICAL: As described in the history. BONE AND JOINTS: History of gout in the past. Review of rest of the 10 systems is negative. MEDICATIONS: Albuterol inhalation p.r.n., Epogen 20,000 units IV during dialysis. HOME MEDICATIONS: Lisinopril 20 mg p.o. daily, Plavix 75 mg p.o. daily, carvedilol 12.5 mg p.o. b.i.d., atorvastatin 80 mg p.o. daily, aspirin 81 mg p.o. daily. PHYSICAL EXAMINATION: GENERAL: A 66-year-old thin built, pleasant -[place] woman, in some distress because of chest pain. Pallor of the mucous membranes present. VITAL SIGNS: Pulse 70 per minute and regular, blood pressure 159/70 mmHg, respirations 18 per minute. NEUROLOGIC: She is alert and oriented x 3. HEENT: Negative. NECK: Supple. JVD 1+. No bruit. No thyromegaly. HEART: PMI down and out, and is heaving in nature, no palpable thrills. Auscultation of heart reveals S1, S2 is heard. S2 is loud. S4 is heard. No S3. Grade 2/6 ejection systolic murmur is heard over the precardium. EXTREMITIES: Peripheral pulses felt. No edema. LUNGS: Bilateral air entry good and equal. No bronchial breathing, no wheezing. ABDOMEN: Soft, benign. Bowel sounds heard. SKIN: Negative. BONE AND JOINTS: Negative. LABORATORY DATA: Troponins as described in the history. HDL 63, LDL 41, triglycerides 55, potassium 4.6, BUN and creatinine 73 and 7.7 respectively. WBC, platelet count within normal limits. Hemoglobin and hematocrit 8 and 24.6 respectively. Chest x-ray: Cardiomegaly, clear lungs. EKG done on 06/15/2017 at 11:13 a.m. revealed normal sinus rhythm, biatrial enlargement, nonspecific T-wave changes in anterolateral leads, cannot rule out ischemia, prolonged QT. LVH with repolarization changes were also seen. IMPRESSION: 1. Atypical chest pain that is pleuritic in nature. 2. Mild increase in troponins, which are flat. There is no evidence of acute myocardial injury or infarction. Rise in troponins could be secondary to chronic kidney disease and congestive heart failure. 3. History of hypertension and hyperlipidemia. 4. Chronic kidney disease, on chronic hemodialysis. 5. Chronic anemia. 6. Ischemic cardiomyopathy. 7. Calcific coronary arteries with patent stents in the right coronary artery by cardiac catheterization approximately a month ago. RECOMMENDATIONS: 1. To continue current medications. 2. No further cardiac workup is recommended at this time. 3. Workup for atypical chest pain. Thank you again. We will follow. Yours sincerely, JOB# [id number] [facility]
[2017-06-17] MEDS: ULTRAM PO PRN (03:48)
[2017-06-17 05:15] VITALS: BP 142/51
--- NOTE | 2017-06-17 07:15 | Discharge Summary ---
Providers - Providers Date of Admission: 06/15/17 12:52 Date of discharge: 06/17/17 Attending physician: RANDI ZACARIAS 06/15/17 16:02 Consult to Physician [CONS] Routine Consulting Provider: FARZANA TODD Reason For Exam: esrd Place consult to:: Dr. Todd Notified:: Yady RN Phone number called:: Was contact made?: Yes If yes, spoke with:: Dionne-answering service Time called:: 17:37 06/15/17 16:03 Consult to Physician [CONS] Routine Consulting Provider: ELLEN GAY Reason For Exam: acs Place consult to:: Dr. Gay Notified:: Yady RN Phone number called:: Was contact made?: Yes If yes, spoke with:: Ana M-answering service Time called:: 17:41 Primary care physician: [employer]ION CONTROL SPECIALIST Hospitalization Reason for admission: chest pain/shortness of breath Condition: Fair Pertinent studies: Chest x-ray; cardiomegaly Hospital course: Very pleasant 66-year-old thin built -[place] female patient with multiple medical problems like coronary artery disease status post stent in RCA hypotension dyslipidemia, end-stage renal disease on hemodialysis Was admitted through emergency room with substernal chest pain not associated with exertion Patient also had shortness of breath Admitted to the hospital symptomatically managed, evaluated by crematorium operator, medications were optimized Did not recommend any further cardiac workup , advised medical management Patient was also evaluated by melt superintendant, had dialysis per schedule, symptoms significantly improved The patient is comfortable in bed no new complaints, denies chest pain or shortness of breath Vital signs are stable, [id number] evaluation did not show any new changes Physical examination is unremarkable Smoking cessation counseling done advised to quit tobacco use Cleared by cardiology and nephrology for discharge and follow up with him in the office Patient is hemodynamically and clinically stable at the time of discharge Discharge diagnosis; Acute coronary syndrome Coronary artery disease status post PCI End-stage renal disease on hemodialysis Diastolic congestive heart failure Ischemic cardiomyopathy ejection fraction 30-35% Hypertension Dyslipidemia Patient vascular disease Ongoing tobacco use Disposition: TO HOME OR SELFCARE Time spent for discharge: 32 min Core Measure Documentation - Palliative Care Palliative Care/ Comfort Measures: Not Applicable - Core Measures Any of the following diagnoses?: heart failure - Heart Failure Discharge Requirements JENNIFER/ARB for LVSD if EF <40%: Yes Beta nikolas at discharge: Yes Exam - Constitutional Vitals: Temp Pulse Resp BP Pulse Ox 98.4 F 74 18 142/51 94 06/17/17 05:13 06/17/17 05:13 06/17/17 05:13 06/17/17 05:13 06/17/17 05:13 General appearance: Present: no acute distress, well-nourished - EENT Eyes: Present: PERRL, EOM intact - Neck Neck: Present: supple, normal ROM - Respiratory Respiratory effort: normal Respiratory: negative: rales, rhonchi, wheezing - Cardiovascular Rhythm: regular Heart Sounds: Present: S1 & S2 - Extremities Extremities: no ischemia, pulses intact - Abdominal General gastrointestinal: Present: soft, non-tender, non-distended, normal bowel sounds - Integumentary Integumentary: Present: clear, warm - Musculoskeletal Musculoskeletal: strength equal bilaterally, generalized weakness - Psychiatric Psychiatric: appropriate mood/affect, cooperative - Neurologic Neurologic: CNII-XII intact, moves all extremities Plan Activity: no restrictions Diet: low salt, other (cardiac diet) Special Instructions: smoking cessation Follow up with: EUFEMIA MORELOS MD [Staff Physician] - 7 Days VERA RAMSEY MD [Staff Physician] - 7 Days Forms: Discharge Signature Page Prescriptions: Dicyclomine [Bentyl] 10 mg PO TID PRN #15 capsule PRN Reason: Pain Pantoprazole [Protonix] 40 mg PO QDAY #30 tablet
[2017-06-17] MEDS ORDERED: ZESTRIL PO SCH (10:00)
[2017-06-17] MEDS ORDERED: HALFPRIN EC PO SCH (10:00)
[2017-06-17] MEDS ORDERED: PLAVIX PO SCH (10:00)
[2017-06-17] MEDS: COREG PO SCH (10:49)
--- NOTE | 2017-06-18 07:29 | Consultation ---
ADDENDUM The patient's echocardiogram done on 05/14/2017 revealed LVEF of 30-35%, grade 2 diastolic left ventricular dysfunction, moderate mitral and moderate tricuspid regurgitation. There was no evidence of pericardial effusion. JOB# [id number] [facility]
== END 2017-06-17 14:32 | disposition home or self-care (01) | DRG 291 ==
LOC: ED 10:20 → 4A 12:52
PROVIDERS: ADMIT Internal Medicine; ATTEND Internal Medicine
PROC: 5A1D70Z Performance of Urinary Filtration, Intermittent, Less than 6 Hours Per Day (ICD-10-PCS; principal; 2017-06-15)
DX: I13.2 Hypertensive heart and chronic kidney disease with heart failure and with stage 5 chronic kidney disease, or end stage renal disease (principal); N18.6 End stage renal disease; I24.9 Acute ischemic heart disease, unspecified; I50.30 Unspecified diastolic (congestive) heart failure; E11.22 Type 2 diabetes mellitus with diabetic chronic kidney disease; I25.10 Atherosclerotic heart disease of native coronary artery without angina pectoris; Z99.2 Dependence on renal dialysis; Z86.73 Personal history of transient ischemic attack (TIA), and cerebral infarction without residual deficits; K21.9 Gastro-esophageal reflux disease without esophagitis; J45.909 Unspecified asthma, uncomplicated; Z79.82 Long term (current) use of aspirin; F17.200 Nicotine dependence, unspecified, uncomplicated; Z83.3 Family history of diabetes mellitus; Z82.49 Family history of ischemic heart disease and other diseases of the circulatory system; Z98.51 Tubal ligation status; I25.5 Ischemic cardiomyopathy; E11.51 Type 2 diabetes mellitus with diabetic peripheral angiopathy without gangrene; D63.1 Anemia in chronic kidney disease
CPT/HCPCS: 36415; 71010; 80048; 80061; 84484; 85025; 90686; 93005; 93010; 96374; 96375; A9270-GY; J2270; J2405; J7030

== ENCOUNTER 2017-08-12 12:05 | Inpatient (IN) | payer MEDICARE ==
[2017-08-12 12:51] LABS: Basophils % (Auto) 0.9 % (0.0-1.8); Eosinophils % (Auto) 0.1 % (0.0-4.3); Hematocrit 27.6 % (30.3-42.9); Mean Corpuscular HGB Conc 33 % (30-34); Mean Corpuscular Hemoglobin 29 pg (28-32); Mean Corpuscular Volume 89 fl (79-97); Platelet Count 245 K/mm3 (140-440); Red Blood Count 3.09 M/mm3 (3.65-5.03); Red Cell Distribution Width 19.7 % (13.2-15.2); White Blood Count 4.7 K/mm3 (4.5-11.0)
[2017-08-12 13:11] LABS: Calcium 9.5 mg/dL (8.4-10.2); Chloride 86.7 mmol/L (98-107)
[2017-08-12 13:32] LABS: Potassium 7.1 mmol/L (3.6-5.0)
[2017-08-12] MEDS ORDERED: PROVENTIL IH ONE (14:14)
[2017-08-12] MEDS ORDERED: KIONEX PO ONE (14:14)
[2017-08-12] MEDS ORDERED: CALCIUM GLUCONATE 1,000 MG in NACL 0.9% 100 ML IV ONE (14:14)
--- NOTE | 2017-08-12 14:36 | Emergency Department Report ---
HPI - General Chief Complaint: Chest Pain Time Seen by Provider: 08/12/17 14:07 - HPI HPI: This is a 67-year-old demented female presents to the emergency department by EMS with complaint of some midsternal chest pain with some radiation towards the back has been going on since about 2 AM this morning. 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 Her farmworker poultry is Dr. Reyes. She did not take anything for her symptoms without presentation. She has a history of a full cardiac workup including a stress test on 12/21/16 and was recently admitted here for chest pains as well. No recent travel or sick contacts at home. She has dialysis access in the left upper extremity. ED Past Medical Hx - Past Medical History Previous Medical History?: Yes Hx Hypertension: Yes Hx CVA: Yes (x 2) Hx Heart Attack/AMI: No (chronic chest pain, multiple visits over past year) Hx Congestive Heart Failure: Yes Hx Diabetes: No Hx GERD: Yes Hx Liver Disease: Yes (LESION) Hx Renal Disease: Yes (ESRD/dialysis M, W, F) Hx Sickle Cell Disease: No Hx Arthritis: Yes Hx Asthma: No Hx COPD: No Hx HIV: No Additional medical history: enlarged heart, gout - Surgical History Past Surgical History?: Yes Hx Coronary Stent: Yes Hx Appendectomy: Yes Additional Surgical History: tubal ligation, vas cath. LUE fistula. cardiac workup includes a stress test on 12/21/2016 that was unremarkable. Patient status post PCI of RCA with subsequent subacute thrombus of the proximal RCA stent and angioplasty with resolution of thrombosis on November 2016. PCI 03/22/17 of RCA. 05/01/17 neg Lexiscan stress - Social History Smoking Status: Current Some Day Smoker Substance Use Type: None - Medications Home Medications: Home Medications Medication Instructions Recorded Confirmed Last Taken Type Aspirin EC [Aspirin Enteric Coated 81 mg PO QDAY #30 tablet 06/27/17 08/07/17 Rx TAB] AtorvaSTATin [Lipitor] 80 mg PO QHS #30 tablet 06/27/17 08/07/17 07/31/17 Rx Carvedilol [Coreg] 12.5 mg PO BID #60 tablet 06/27/17 08/07/17 07/31/17 Rx Clopidogrel [Plavix] 75 mg PO QDAY #30 tablet 06/27/17 08/07/17 07/31/17 Rx ISOSORBIDE MONOnitrate [Imdur ER] 30 mg PO QDAY #30 tablet 06/27/17 08/07/17 Rx Lisinopril [Zestril TAB] 20 mg PO QDAY #30 tablet 06/27/17 08/07/17 07/31/17 Rx Dicyclomine [Bentyl] 10 mg PO TID PRN #30 capsule 08/03/17 08/07/17 Unknown Rx Pantoprazole [Protonix TAB] 40 mg PO QDAY #30 tablet 08/03/17 08/07/17 Unknown Rx ED Review of Systems ROS: Stated complaint: CHEST PAIN Other details as noted in HPI Comment: All other systems reviewed and negative Constitutional: denies: chills, fever ENT: denies: ear pain, throat pain Respiratory: denies: cough, wheezing Cardiovascular: chest pain. denies: palpitations Gastrointestinal: abdominal pain. denies: vomiting Genitourinary: denies: urgency, dysuria, discharge Musculoskeletal: denies: back pain, joint swelling, arthralgia Skin: denies: rash, lesions Neurological: denies: headache, weakness, paresthesias Physical Exam - Physical Exam Vital Signs: Vital Signs 08/12/17 12:27 Temperature 98.9 F Pulse Rate 100 H Respiratory 18 Rate Blood Pressure 170/77 O2 Sat by Pulse 100 Oximetry Physical Exam: GENERAL: The patient is well-developed well-nourished. HENT: Normocephalic. Atraumatic. Patient has moist mucous membranes. EYES: Extraocular motions are intact. Pupils equal reactive to light bilaterally. NECK: Supple. Trachea is midline. CHEST/LUNGS: Coarse breath sounds without chest. No tachypnea or accessory muscle use. There is no respiratory distress noted. HEART/CARDIOVASCULAR: Regular. There is no tachycardia. There is no gallop rub or murmur. ABDOMEN: Abdomen is soft, nontender. Patient has normal bowel sounds. There is no abdominal distention. SKIN: Skin is warm and dry. NEURO: The patient is awake, alert, and oriented. The patient is cooperative. The patient has no focal neurologic deficits. The patient has normal speech. MUSCULOSKELETAL: There is no tenderness or deformity. There is no limitation range of motion. There is no evidence of acute injury. ED Course Vital Signs 08/12/17 12:27 Temperature 98.9 F Pulse Rate 100 H Respiratory 18 Rate Blood Pressure 170/77 O2 Sat by Pulse 100 Oximetry - Consultations Consultation #1: I spoke to the farmworker poultry, Dr. Tarango, who will put in orders to have the patient get dialysis today. 08/12/17 14:35 ED Medical Decision Making - Lab Data Result diagrams: 08/12/17 12:32 08/12/17 12:32 - EKG Data -: EKG Interpreted by Me EKG shows normal: sinus rhythm, axis, intervals, QRS complexes (LVH), ST-T waves (there is some nonspecific ST elevation to the anterior leads and some T- wave inversions to the lateral leads that are unchanged from previous) Rate: normal - EKG Data When compared to previous EKG there are: no significant change Interpretation: unchanged when compared t (08/07/17) - Radiology Data Radiology results: image reviewed interpreted by me: Chest x-ray shows some pulmonary vascular congestion and cardiomegaly. There might be some mild basilar pleural effusions. - Medical Decision Making 67-year-old dialysis dependent female presents with some chest pain, shortness of breath. She has a potassium of 7.1 and was given hyperkalemia cocktail. Nephrology contacted and will get dialysis the next hour or so. Chest x-ray shows some volume overload but she does not appear to be in any respiratory distress. First troponin elevated but patient has renal insufficiency. Patient has been accepted for admission by the hospitalist, Dr. Boothe. - Differential Diagnosis DE, CHF, Hyperkalemia, Pneumonia Critical Care Time: No Critical care attestation.: If time is entered above; I have spent that time in minutes in the direct care of this critically ill patient, excluding procedure time. ED Disposition Clinical Impression: ESRD needing dialysis, Hyperkalemia, Elevated troponin, Anemia in end-stage renal disease Back pain Qualifiers: Back pain location: back pain in unspecified location Chronicity: unspecified Back pain laterality: unspecified Qualified Code(s): M54.9 - Dorsalgia, unspecified Chest pain Qualifiers: Chest pain type: unspecified Qualified Code(s): R07.9 - Chest pain, unspecified Hypertension Qualifiers: Hypertension type: essential hypertension Qualified Code(s): I10 - Essential ( primary) hypertension Disposition: OP ADMIT IP TO THIS HOSP Is pt being admited?: Yes Condition: Stable Instructions: Chest Pain (ED), Hypertension (ED) Referrals: PRIMARY CARE,MD [Primary Care Provider] - 3-5 Days Time of Disposition: 14:36
[2017-08-12] MEDS ORDERED: NACL 0.9% 100 ML IV PRN (15:17)
--- NOTE | 2017-08-12 15:26 | XRay Report ---
FINAL REPORT EXAM: XR CHEST 1V AP HISTORY: CP TECHNIQUE: Single AP view of the chest PRIORS: Comparison is May 12, 2017 FINDINGS: There is mild cardiac enlargement. No focal pulmonary infiltrate identified. No pleural fluid collection seen. The pulmonary vasculature is unremarkable. IMPRESSION: Mild cardiomegaly No acute pulmonary findings
[2017-08-12] MEDS ORDERED: ZOFRAN IV PRN (17:09)
[2017-08-12] MEDS ORDERED: DULCOLAX PR PRN (17:09)
--- NOTE | 2017-08-12 17:25 | History and Physical Report ---
History of Present Illness Chief complaint: chest pain History of present illness: This is a 67-year-old female with progressive Dementia, ESRD, htn, hx of chf, cad, CVA x2, chronically elevated troponin who pw chest pain, 4/10 radiating to presents to the Right shoulder. She typically has this type of pain on and off and has have negative ischemic workup with cardiology. She received some pain meds and feels better now. emergency department by EMS with complaint of some midsternal chest pain with some radiation towards the back has been going on since about 2 AM this morning. She beleives she went to HD on Sunday, but when asked details of it, shes says she can't remember Past History Past Medical History: other ( progressive Dementia, ESRD, htn, hx of chf, cad, CVA x2, chronically elevated troponin) Past Surgical History: Other (AV graft placement) Social history: no significant social history Family history: hypertension Medications and Allergies Allergies Allergy/AdvReac Type Severity Reaction Status Date / Time No Known Allergies Allergy Verified 06/15/17 10:31 Home Medications Medication Instructions Recorded Confirmed Last Taken Type Aspirin EC [Aspirin Enteric Coated 81 mg PO QDAY #30 tablet 06/27/17 08/12/17 16:00 Rx TAB] AtorvaSTATin [Lipitor] 80 mg PO QHS #30 tablet 06/27/17 08/12/17 08/10/17 20:00 Rx Carvedilol [Coreg] 12.5 mg PO BID #60 tablet 06/27/17 08/12/17 08/10/17 16:00 Rx Clopidogrel [Plavix] 75 mg PO QDAY #30 tablet 06/27/17 08/12/17 08/10/17 16:00 Rx ISOSORBIDE MONOnitrate [Imdur ER] 30 mg PO QDAY #30 tablet 06/27/17 08/12/17 16:00 Rx Lisinopril [Zestril TAB] 20 mg PO QDAY #30 tablet 06/27/17 08/12/17 08/10/17 16: 00 Rx Dicyclomine [Bentyl] 10 mg PO TID PRN #30 capsule 08/03/17 08/12/17 Unknown Rx Pantoprazole [Protonix TAB] 40 mg PO QDAY #30 tablet 08/03/17 08/12/1708/10/17 16:00 Rx Active Meds: Active Medications Acetaminophen (Tylenol) 650 mg PO Q4H PRN PRN Reason: Pain MILD(1-3)/Fever >100.5/SANCHEZ Aspirin (Halfprin Ec) 81 mg PO QDAY [facility] Atorvastatin Calcium (Lipitor) 80 mg PO QHS ETHAN Bisacodyl (Dulcolax) 10 mg [place] QDAY PRN PRN Reason: Constipation unrelieved by MOM Carvedilol (Coreg) 12.5 mg PO BID ETHAN Clopidogrel Bisulfate (Plavix) 75 mg PO QDAY ETHAN Dicyclomine HCl (Bentyl) 10 mg PO TID PRN PRN Reason: Pain Heparin Sodium (Porcine) (Heparin) 5,000 unit SUB-Q Q8HR [facility] Sodium Chloride (Nacl 0.9%) 100 mls @ 999 mls/hr IV JOAN PRN PRN Reason: Hypotension Isosorbide Mononitrate (Imdur) 30 mg PO QDAY [facility] Ondansetron HCl (Zofran) 4 mg IV Q8H PRN PRN Reason: N/V unrelieved by Reglan Pantoprazole Sodium (Protonix) 40 mg PO QDAY [facility] Review of Systems All systems: negative (14 systems otherwise negative) Constitutional: lethargy Cardiovascular: chest pain Exam - Constitutional Vitals: Temp Pulse Resp BP Pulse Ox 99.4 F 92 H 18 172/79 100 08/12/17 16:15 08/12/17 16:45 08/12/17 16:15 08/12/17 16:45 08/12/17 12:27 General appearance: Present: no acute distress, cachectic - EENT Eyes: Present: PERRL ENT: hearing intact, clear oral mucosa - Neck Neck: Present: supple, normal ROM - Respiratory Respiratory effort: normal Respiratory: bilateral: CTA - Cardiovascular Heart Sounds: Present: S1 & S2. Absent: rub, click - Extremities Extremities: pulses symmetrical, No edema Peripheral Pulses: within normal limits - Abdominal General gastrointestinal: Present: soft, non-tender, non-distended, normal bowel sounds Female genitourinary: Present: normal - Integumentary Integumentary: Present: clear, warm, dry - Musculoskeletal Musculoskeletal: gait normal, strength equal bilaterally - Psychiatric Psychiatric: appropriate mood/affect, intact judgment & insight, no memory intact - Neurologic Neurologic: CNII-XII intact, moves all extremities Results - Labs CBC & Chem 7: 08/12/17 12:32 08/12/17 20:23 Labs: Laboratory Last Values WBC 4.7 K/mm3 (4.5-11.0) 08/12/17 12:32 RBC 3.09 M/mm3 (3.65-5.03) L 08/12/17 12:32 Hgb 9.0 gm/dl (10.1-14.3) L 08/12/17 12:32 Hct 27.6 % (30.3-42.9) L 08/12/17 12:32 MCV 89 fl (79-97) 08/12/17 12:32 MCH 29 pg (28-32) 08/12/17 12:32 MCHC 33 % (30-34) 08/12/17 12:32 RDW 19.7 % (13.2-15.2) H 08/12/17 12:32 Plt Count 245 K/mm3 (140-440) 08/12/17 12:32 Lymph % (Auto) 11.9 % (13.4-35.0) L 08/12/17 12:32 [place] % (Auto) 9.2 % (0.0-7.3) H 08/12/17 12:32 Eos % (Auto) 0.1 % (0.0-4.3) 08/12/17 12:32 Baso % (Auto) 0.9 % (0.0-1.8) 08/12/17 12:32 Lymph # 0.6 K/mm3 (1.2-5.4) L 08/12/17 12:32 [place] # 0.4 K/mm3 (0.0-0.8) 08/12/17 12:32 Eos # 0.0 K/mm3 (0.0-0.4) 08/12/17 12:32 Baso # 0.0 K/mm3 (0.0-0.1) 08/12/17 12:32 Seg Neutrophils % 77.9 % (40.0-70.0) H 08/12/17 12:32 Seg Neutrophils # 3.7 K/mm3 (1.8-7.7) 08/12/17 12:32 Sodium 135 mmol/L (137-145) L 08/12/17 12:32 Potassium 7.1 mmol/L (3.6-5.0) H* D 08/12/17 12:32 Chloride 86.7 mmol/L (98-107) L 08/12/17 12:32 Carbon Dioxide 24 mmol/L (22-30) D 08/12/17 12:32 Anion Gap 31 mmol/L 08/12/17 12:32 BUN 94 mg/dL (7-17) H 08/12/17 12:32 Creatinine 12.9 mg/dL (0.7-1.2) H D 08/12/17 12:32 Estimated GFR 3 ml/min 08/12/17 12:32 BUN/Creatinine Ratio 7 % 08/12/17 12:32 Glucose 73 mg/dL (65-100) 08/12/17 12:32 Calcium 9.5 mg/dL (8.4-10.2) 08/12/17 12:32 Troponin T 0.160 ng/mL (0.00-0.029) H* 08/12/17 15:49 Triglycerides 79 mg/dL (2-149) 08/12/17 12:32 Cholesterol 144 mg/dL (50-199) 08/12/17 12:32 LDL Cholesterol Direct 69 mg/dL (50-130) 08/12/17 12:32 HDL Cholesterol 60 mg/dL (40-59) H 08/12/17 12:32 Cholesterol/HDL Ratio 2.40 % 08/12/17 12:32 - Imaging and Cardiology Chest x-ray: image reviewed (no acute findings) Assessment and Plan Assessment and plan: 67F with ESRD, hx of CAD, CHF, hx of CVA, Htn, pw with chest pain, and it is questionable if she received or missed HD on Sunday, she is admitted for severe hyperkalemia Severe Hyperkalemia -received medical rx in ER -for emergent HD today Chest pain -due to uremia and hyperkalemia -trops chronically elevated -no further workup, will get HD PAM HTN -resume home meds ESRD -HD per renal as stated above
[2017-08-12 21:46] LABS: Calcium 9.6 mg/dL (8.4-10.2); Chloride 90.2 mmol/L (98-107); Potassium 3.8 mmol/L (3.6-5.0)
[2017-08-12] MEDS: COREG PO SCH (22:48)
[2017-08-12] MEDS: HEPARIN SUB-Q SCH (22:52)
[2017-08-12] MEDS ORDERED: MORPHINE IV ONE (23:59)
[2017-08-13] MEDS ORDERED: MORPHINE IV ONE (03:20)
[2017-08-13] MEDS: HEPARIN SUB-Q SCH ×2 (06:39→14:01)
[2017-08-13] MEDS: BENTYL PO PRN (07:04)
[2017-08-13] MEDS: PROTONIX PO SCH (11:21)
[2017-08-13] MEDS: HALFPRIN EC PO SCH (11:21)
[2017-08-13] MEDS: PLAVIX PO SCH (11:22)
[2017-08-13] MEDS: COREG PO SCH ×2 (11:22→22:38)
[2017-08-13] MEDS: IMDUR PO SCH (11:22)
--- NOTE | 2017-08-13 12:21 | Progress Note ---
Assessment and Plan Assessment and plan: Patient is a 67-year-old woman with a history of ESRD, hx of CAD, CHF, hx of CVA , Htn, pw with chest pain, and it is questionable if she received or missed HD on Sunday, she is admitted for severe hyperkalemia, 7.1 Severe Hyperkalemia -received medical rx in ER -for emergent HD today Chest pain -due to uremia and hyperkalemia -trops chronically elevated -no further workup, will get HD PAM HTN -resume home meds ESRD -HD per renal as stated above History Interval history: Patient was seen and examined. Follow-up on current diagnosis/hyperkalemia. Overnight uneventful. Patient denies any nausea/vomiting or severe headaches. Imaging, nursing note, chart, labs and old chart reviewed. Discussed with patient. Chest shortness breath. She had hemodialysis yesterday Hospitalist Physical - Physical exam Narrative exam: GEN: Thin frail, debilitated woman NAD, AWAKE, ALERT, ORIENTATED 3 HEENT: NCAT, EOMI, PERRL, OP Clear NECK: supple, no adenopathy, no thyromegaly, no JVD CVS/HEART: RRR, NORMAL S1S2, NO JVD, pulses present bilaterally CHEST/LUNGS: Fine crackles at bases, Symmetrical chest expansion, diminished breath sounds, adequate air entry bilaterally GI/Abdomen: soft, NTND, good bowel sounds, no guarding or rebound /Bladder: no suprapubic tenderness, no CVA or paraspinal tenderness EXT/Skin: no new c/c/e/rash MSK: FROM x 4 Neuro: CN 2-12 grossly intact, no new focal deficits Psych: calm - Constitutional Vitals: Temp Pulse Resp BP Pulse Ox 97.5 F L 77 20 142/61 98 08/13/17 07:24 08/13/17 07:24 08/13/17 07:24 08/13/17 07:24 08/13/17 07:24 General appearance: Present: no acute distress, cachectic Results - Labs CBC & Chem 7: 08/12/17 12:32 08/12/17 20:23 Labs: Laboratory Last Values WBC 4.7 K/mm3 (4.5-11.0) 08/12/17 12:32 RBC 3.09 M/mm3 (3.65-5.03) L 08/12/17 12:32 Hgb 9.0 gm/dl (10.1-14.3) L 08/12/17 12:32 Hct 27.6 % (30.3-42.9) L 08/12/17 12:32 MCV 89 fl (79-97) 08/12/17 12:32 MCH 29 pg (28-32) 08/12/17 12:32 MCHC 33 % (30-34) 08/12/17 12:32 RDW 19.7 % (13.2-15.2) H 08/12/17 12:32 Plt Count 245 K/mm3 (140-440) 08/12/17 12:32 Lymph % (Auto) 11.9 % (13.4-35.0) L 08/12/17 12:32 [place] % (Auto) 9.2 % (0.0-7.3) H 08/12/17 12:32 Eos % (Auto) 0.1 % (0.0-4.3) 08/12/17 12:32 Baso % (Auto) 0.9 % (0.0-1.8) 08/12/17 12:32 Lymph # 0.6 K/mm3 (1.2-5.4) L 08/12/17 12:32 [place] # 0.4 K/mm3 (0.0-0.8) 08/12/17 12:32 Eos # 0.0 K/mm3 (0.0-0.4) 08/12/17 12:32 Baso # 0.0 K/mm3 (0.0-0.1) 08/12/17 12:32 Seg Neutrophils % 77.9 % (40.0-70.0) H 08/12/17 12:32 Seg Neutrophils # 3.7 K/mm3 (1.8-7.7) 08/12/17 12:32 Sodium 136 mmol/L (137-145) L 08/12/17 20:23 Potassium 3.8 mmol/L (3.6-5.0) D 08/12/17 20:23 Chloride 90.2 mmol/L (98-107) L 08/12/17 20:23 Carbon Dioxide 29 mmol/L (22-30) 08/12/17 20:23 Anion Gap 21 mmol/L 08/12/17 20:23 BUN 38 mg/dL (7-17) H 08/12/17 20:23 Creatinine 6.3 mg/dL (0.7-1.2) H D 08/12/17 20:23 Estimated GFR 8 ml/min 08/12/17 20:23 BUN/Creatinine Ratio 6 % 08/12/17 20:23 Glucose 87 mg/dL (65-100) 08/12/17 20:23 Calcium 9.6 mg/dL (8.4-10.2) 08/12/17 20:23 Troponin T 0.194 ng/mL (0.00-0.029) H* D 08/12/17 20:18 Triglycerides 79 mg/dL (2-149) 08/12/17 12:32 Cholesterol 144 mg/dL (50-199) 08/12/17 12:32 LDL Cholesterol Direct 69 mg/dL (50-130) 08/12/17 12:32 HDL Cholesterol 60 mg/dL (40-59) H 08/12/17 12:32 Cholesterol/HDL Ratio 2.40 % 08/12/17 12:32
--- NOTE | 2017-08-13 13:35 | Consultation ---
History of Present Illness - Reason for Consult Consult date: 08/13/17 end stage renal disease, hyperkalemia Requesting physician: DELGADO GOMEZ - History of Present Illness 67 yo AAF with Hypertension complicated by ESRD on Hemodialysis on a Sunday schedule at [facility] dialysis, with h/o multiple hospitalizations over the last year due to recurrent chest pain. She has a history of coronary artery disease with Percutaneous coronary intervention and stent placement. She had right in-stent stenosis of the right coronary artery for which she had angioplasty done this summer. Pt again presents with chest pain, radiating to the Right shoulder. She typically has this type of pain on and off and has have negative ischemic workup with cardiology recently. Pt missed last HD treatment as outpatient, and admission labs showed elevated K > 7. Renal consult requested for emergent HD. Past History Past Medical History: other ( progressive Dementia, ESRD, htn, hx of chf, cad, CVA x2, chronically elevated troponin) Past Surgical History: Other (AV graft placement) Social history: no significant social history Family history: hypertension Medications and Allergies Allergies Allergy/AdvReac Type Severity Reaction Status Date / Time No Known Allergies Allergy Verified 06/15/17 10:31 Home Medications Medication Instructions Recorded Confirmed Last Taken Type Aspirin EC [Aspirin Enteric Coated 81 mg PO QDAY #30 tablet 06/27/17 08/12/17 16:00 Rx TAB] AtorvaSTATin [Lipitor] 80 mg PO QHS #30 tablet 06/27/17 08/12/17 08/10/17 20:00 Rx Carvedilol [Coreg] 12.5 mg PO BID #60 tablet 06/27/17 08/12/17 08/10/17 16:00 Rx Clopidogrel [Plavix] 75 mg PO QDAY #30 tablet 06/27/17 08/12/17 08/10/17 16:00 Rx ISOSORBIDE MONOnitrate [Imdur ER] 30 mg PO QDAY #30 tablet 06/27/17 08/12/17 16:00 Rx Lisinopril [Zestril TAB] 20 mg PO QDAY #30 tablet 06/27/17 08/12/17 08/10/17 16: 00 Rx Dicyclomine [Bentyl] 10 mg PO TID PRN #30 capsule 08/03/17 08/12/17 Unknown Rx Pantoprazole [Protonix TAB] 40 mg PO QDAY #30 tablet 08/03/17 08/12/17 08/10/17 16:00 Rx Active Meds: Active Medications Acetaminophen (Tylenol) 650 mg PO Q4H PRN PRN Reason: Pain MILD(1-3)/Fever >100.5/SANCHEZ Aspirin (Halfprin Ec) 81 mg PO QDAY [facility] Last Admin: 08/13/17 11:21 Dose: 81 mg Atorvastatin Calcium (Lipitor) 80 mg PO QHS [facility] Last Admin: 08/12/17 22:51 Dose: 80 mg Bisacodyl (Dulcolax) 10 mg [place] QDAY PRN PRN Reason: Constipation unrelieved by MOM Carvedilol (Coreg) 12.5 mg PO BID [facility] Last Admin: 08/13/17 11:22 Dose: 12.5 mg Clopidogrel Bisulfate (Plavix) 75 mg PO QDAY [facility] Last Admin: 08/13/17 11:22 Dose: 75 mg Dicyclomine HCl (Bentyl) 10 mg PO TID PRN PRN Reason: Pain Last Admin: 08/13/17 07:04 Dose: 10 mg Heparin Sodium (Porcine) (Heparin) 5,000 unit SUB-Q Q8HR [facility] Last Admin: 08/13/17 06:39 Dose: 5,000 unit Sodium Chloride (Nacl 0.9%) 100 mls @ 999 mls/hr IV JOAN PRN PRN Reason: Hypotension Isosorbide Mononitrate (Imdur) 30 mg PO QDAY [facility] Last Admin: 08/13/17 11:22 Dose: 30 mg Morphine Sulfate (Morphine) 2 mg IV Q4H PRN PRN Reason: Pain , Severe (7-10) Ondansetron HCl (Zofran) 4 mg IV Q8H PRN PRN Reason: N/V unrelieved by Reglan Pantoprazole Sodium (Protonix) 40 mg PO QDAY [facility] Last Admin: 08/13/17 11:21 Dose: 40 mg Review of Systems All systems: negative Constitutional: weakness Cardiovascular: chest pain, dyspnea on exertion Exam - Vital Signs Vital signs: Vital Signs Temp Pulse Resp BP Pulse Ox 98.9 F 100 H 18 170/77 100 08/12/17 12:27 08/12/17 12:27 08/12/17 12:27 08/12/17 12:27 08/12/17 12:27 - General Appearance General appearance: well-nourished, appears stated age EENT: ATNC, PERRL, mucous membranes moist Neck: Present: neck supple Respiratory: Clear to Ascultation Heart: regular, S1S2 Gastrointestinal: Present: normoactive bowel sounds Integumentary: no rash, other (no edema ) Neurologic: no focal deficit, alert and oriented x3, strength 5/5, CN 3-12 intact Psychiatric: mood/affect appropriate, cooperative Results - Lab Results 08/12/17 12:32 08/12/17 20:23 Most recent lab results Calcium 9.6 mg/dL (8.4-10.2) 08/12/17 20:23 Assessment and Plan - Patient Problems (1) Hyperkalemia Current Visit: Yes Status: Acute Plan to address problem: K corrected after emergent HD last night. cont 2g K renal diet (2) ESRD needing dialysis Current Visit: Yes Status: Chronic Plan to address problem: cont maintenance HD 3 x weekly (3) Anemia in end-stage renal disease Current Visit: Yes Status: Acute Plan to address problem: cont EPO with HD (4) Chest pain Current Visit: Yes Status: Acute Qualifiers: Chest pain type: unspecified Qualified Code(s): R07.9 - Chest pain, unspecified Plan to address problem: resolved, likely atypical in nature, follow up cardiology recommendations (5) HTN (hypertension) Current Visit: Yes Status: Chronic Qualifiers: Hypertension type: essential hypertension Qualified Code(s): I10 - Essential (primary) hypertension Plan to address problem: BP controlled
[2017-08-13] MEDS: MORPHINE IV PRN (14:02)
[2017-08-13] MEDS: TYLENOL PO PRN (22:34)
[2017-08-14 05:02] LABS: Hematocrit 23.9 % (30.3-42.9); Hemoglobin 7.9 gm/dl (10.1-14.3); Mean Corpuscular HGB Conc 33 % (30-34); Mean Corpuscular Hemoglobin 30 pg (28-32); Mean Corpuscular Volume 89 fl (79-97); Platelet Count 187 K/mm3 (140-440); Red Blood Count 2.69 M/mm3 (3.65-5.03); Red Cell Distribution Width 19.3 % (13.2-15.2); White Blood Count 3.5 K/mm3 (4.5-11.0)
[2017-08-14 05:12] LABS: Calcium 8.9 mg/dL (8.4-10.2); Chloride 93.5 mmol/L (98-107); Potassium 5.2 mmol/L (3.6-5.0)
--- NOTE | 2017-08-14 10:24 | Progress Note ---
Assessment and Plan - Patient Problems (1) Hyperkalemia Current Visit: Yes Status: Acute Plan to address problem: HD today using 2 K bath, will transition to MWD starting tomrrow. (2) ESRD needing dialysis Current Visit: Yes Status: Chronic Plan to address problem: cont maintenance HD 3 x weekly (3) Anemia in end-stage renal disease Current Visit: Yes Status: Acute Plan to address problem: cont EPO with HD (4) Chest pain Current Visit: Yes Status: Acute Qualifiers: Chest pain type: unspecified Qualified Code(s): R07.9 - Chest pain, unspecified Plan to address problem: resolved, likely atypical in nature, follow up cardiology recommendations (5) HTN (hypertension) Current Visit: Yes Status: Chronic Qualifiers: Hypertension type: essential hypertension Qualified Code(s): I10 - Essential (primary) hypertension Plan to address problem: BP controlled Subjective Date of service: 08/14/17 Principal diagnosis: ESRD Interval history: pt awake, alert, in NAD Objective - Vital Signs Vital signs: Vital Signs - 12hr 08/13/17 08/14/17 08/14/17 22:38 04:52 07:30 Temperature 98.7 F 98.7 F Pulse Rate 96 H 72 68 Respiratory 18 18 Rate Blood Pressure 147/57 142/66 135/55 O2 Sat by Pulse 100 97 Oximetry - General Appearance General appearance: well-developed, well-nourished, appears stated age EENT: ATNC, PERRL, mucous membranes moist Neck: no JVD Respiratory: Present: Clear to Ascultation Cardiology: regular, S1S2 Gastrointestinal: normoactive bowel sounds Integumentary: no rash, other (no edema ) Neurologic: no focal deficit, alert and oriented x3, strength 5/5, CN 3-12 intact Psychiatric: mood/affect appropriate, cooperative - Lab 08/14/17 04:14 08/14/17 04:14 Most recent lab results Calcium 8.9 mg/dL (8.4-10.2) 08/14/17 04:14
[2017-08-14] MEDS: IMDUR PO SCH (11:31)
[2017-08-14] MEDS: HALFPRIN EC PO SCH (11:31)
[2017-08-14] MEDS: PLAVIX PO SCH (11:32)
[2017-08-14] MEDS: PROTONIX PO SCH (11:32)
[2017-08-14] MEDS: COREG PO SCH ×2 (11:32→23:01)
[2017-08-14] MEDS: MORPHINE IV PRN ×2 (11:49→21:47)
[2017-08-14] MEDS ORDERED: KIONEX PO ONE (12:00)
--- NOTE | 2017-08-14 15:44 | Progress Note ---
Assessment and Plan Assessment and plan: Patient is a 67-year-old woman with a history of ESRD, hx of CAD, CHF, hx of CVA , HTN, pw with chest pain, and it is questionable if she received or missed HD on Sunday, she is admitted for severe hyperkalemia, 7.1 Severe Hyperkalemia * Likely secondary to noncompliance with dialysis will repeat hemodialysis today. * Check basic metabolic profile in a.m. Atypical Chest pain -due to uremia and hyperkalemia -trops chronically elevated -no further workup, will get HD PAM HTN -resume home meds ESRD -HD per renal as stated above Epixstasis * Monitor for any reoccurrence * monitor H/H ANEMIA of Chronic Renal disease * Will continue to monitor, fluctuates, at baseline. Chronic Abdominal pain * Trial of Bentyl DVT/GI prophy Plan discussed with the patient and Investigation Division Captain and with Nursing staff. History Interval history: Patient seen and examined this morning although She denies noncompliance with dialysis angle shearer personally stated that the patient did not show up for dialysis as he was personally waiting for her but she did not show up on . Patient denies any chest pain, nausea vomiting diarrhea she does report improved urination. Nursing staff report 1 episode of epistaxis for which they held heparin. No recurrence were noted Hospitalist Physical - Physical exam Narrative exam: VITAL SIGNS: Reviewed. GENERAL: The patient appeared well nourished and normally developed. Vital signs as documented. HEAD: No signs of head trauma. EYES: Pupils are equal. Extraocular motions intact. EARS: Hearing grossly intact. MOUTH: Oropharynx is normal. NECK: No adenopathy, no JVD. CHEST: Chest with clear breath sounds bilaterally. No wheezes, rales, or rhonchi. CARDIAC: Regular rate and rhythm. S1 and S2, without murmurs, gallops, or rubs. VASCULAR: No Edema. Peripheral pulses normal and equal in all extremities. ABDOMEN: Soft, without detectable tenderness. No sign of distention. No rebound or guarding, and no masses palpated. Bowel Sounds normal. MUSCULOSKELETAL: Good range of motion of all major joints. Extremities without clubbing, cyanosis or edema. NEUROLOGIC EXAM: Alert and oriented x 3. No focal sensory or strength deficits. Speech normal. Follows commands. PSYCHIATRIC: Mood normal. SKIN: Age-appropriate rectal some blemishes - Constitutional Vitals: Temp Pulse Resp BP Pulse Ox 98.7 F 68 18 135/55 96 08/14/17 07:30 08/14/17 11:31 08/14/17 07:30 08/14/17 11:31 08/14/17 10:00 General appearance: Present: no acute distress, cachectic Results - Labs CBC & Chem 7: 08/14/17 04:14 08/14/17 04:14 Labs: Laboratory Last Values WBC 3.5 K/mm3 (4.5-11.0) L 08/14/17 04:14 RBC 2.69 M/mm3 (3.65-5.03) L 08/14/17 04:14 Hgb 7.9 gm/dl (10.1-14.3) L 08/14/17 04:14 Hct 23.9 % (30.3-42.9) L 08/14/17 04:14 MCV 89 fl (79-97) 08/14/17 04:14 MCH 30 pg (28-32) 08/14/17 04:14 MCHC 33 % (30-34) 08/14/17 04:14 RDW 19.3 % (13.2-15.2) H 08/14/17 04:14 Plt Count 187 K/mm3 (140-440) 08/14/17 04:14 Lymph % (Auto) 11.9 % (13.4-35.0) L 08/12/17 12:32 Bryan % (Auto) 9.2 % (0.0-7.3) H 08/12/17 12:32 Eos % (Auto) 0.1 % (0.0-4.3) 08/12/17 12:32 Baso % (Auto) 0.9 % (0.0-1.8) 08/12/17 12:32 Lymph # 0.6 K/mm3 (1.2-5.4) L 08/12/17 12:32 Bryan # 0.4 K/mm3 (0.0-0.8) 08/12/17 12:32 Eos # 0.0 K/mm3 (0.0-0.4) 08/12/17 12:32 Baso # 0.0 K/mm3 (0.0-0.1) 08/12/17 12:32 Seg Neutrophils % 77.9 % (40.0-70.0) H 08/12/17 12:32 Seg Neutrophils # 3.7 K/mm3 (1.8-7.7) 08/12/17 12:32 Sodium 136 mmol/L (137-145) L 08/14/17 04:14 Potassium 5.2 mmol/L (3.6-5.0) H D 08/14/17 04:14 Chloride 93.5 mmol/L (98-107) L 08/14/17 04:14 Carbon Dioxide 25 mmol/L (22-30) 08/14/17 04:14 Anion Gap 23 mmol/L 08/14/17 04:14 BUN 62 mg/dL (7-17) H 08/14/17 04:14 Creatinine 8.8 mg/dL (0.7-1.2) H 08/14/17 04:14 Estimated GFR 5 ml/min 08/14/17 04:14 BUN/Creatinine Ratio 7 % 08/14/17 04:14 Glucose 78 mg/dL (65-100) 08/14/17 04:14 Calcium 8.9 mg/dL (8.4-10.2) 08/14/17 04:14 Troponin T 0.194 ng/mL (0.00-0.029) H* D 08/12/17 20:18 Triglycerides 79 mg/dL (2-149) 08/12/17 12:32 Cholesterol 144 mg/dL (50-199) 08/12/17 12:32 LDL Cholesterol Direct 69 mg/dL (50-130) 08/12/17 12:32 HDL Cholesterol 60 mg/dL (40-59) H 08/12/17 12:32 Cholesterol/HDL Ratio 2.40 % 08/12/17 12:32
[2017-08-14] MEDS: BENTYL PO PRN (18:41)
[2017-08-14] MEDS: HEPARIN SUB-Q SCH ×2 (21:59→22:00)
[2017-08-15 05:29] LABS: Hematocrit 26.3 % (30.3-42.9); Hemoglobin 8.5 gm/dl (10.1-14.3); Mean Corpuscular HGB Conc 32 % (30-34); Mean Corpuscular Hemoglobin 29 pg (28-32); Mean Corpuscular Volume 89 fl (79-97); Platelet Count 195 K/mm3 (140-440); Red Blood Count 2.95 M/mm3 (3.65-5.03); Red Cell Distribution Width 18.9 % (13.2-15.2); White Blood Count 3.3 K/mm3 (4.5-11.0)
[2017-08-15 05:50] LABS: Calcium 9.2 mg/dL (8.4-10.2); Chloride 95.8 mmol/L (98-107); Potassium 4.1 mmol/L (3.6-5.0)
[2017-08-15] MEDS: MORPHINE IV PRN ×2 (06:32→10:53)
[2017-08-15] MEDS ORDERED: NACL 0.9% 100 ML IV PRN (08:30)
--- NOTE | 2017-08-15 09:23 | Discharge Summary ---
Providers - Providers Date of Admission: 08/12/17 17:56 Attending physician: BEKAH GARCIA MD 08/12/17 17:09 Consult to Physician [CONS] Routine Consulting Provider: VERA RAMSEY Reason For Exam: hyperkalemia Place consult to:: ANSWERING SERVICE Notified:: YES Phone number called:: [phone] If yes, spoke with:: MAMIESA Time called:: 19:08 Comment:: SHAYLA Primary care physician: [facility] REGISTERED NURSE Hospitalization Reason for admission: hyperkalemia Condition: Stable Hospital course: Patient is a 67-year-old woman with a history of ESRD, hx of CAD, CHF, hx of CVA , HTN, pw with chest pain, and it is questionable if she received or missed HD on Sunday, she is admitted for severe hyperkalemia, 7.1 although patient denies missing dialysis director supply chain noted that he was awakened the patient at the dialysis center for the patient never showed up on . Counseling was provided to the patient she complained of multiple different pain which has resolved. She has had multiple workup in the past have been negative she is started on Bentyl. She did have repeated dialysis on A DIALYSIS TODAY WHICH KEEPS ON SCHEDULE OF Sunday. SHE IS CLINICALLY STABLE FOR DISCHARGE AT THIS TIME I RECOMMENDED A GI FOLLOW-UP OUTPATIENT SHE IS ON ASPIRIN AND PLAVIX DUE TO CAD. ALTHOUGH SHE CAN'T PROVIDE MUCH INFORMATION. ALSO RECOMMENDED FOLLOWING UP WITH HER PRIMARY FORMING YARDAGE CONTROL OPERATOR. AGAIN SHE IS CLINICALLY STABLE AT THIS POINT FOR DISCHARGE Severe Hyperkalemia Atypical Chest pain-secondary to costochondritis -due to uremia and hyperkalemia -trops chronically elevated HTN ESRD Epixstasis-self resolved ANEMIA of Chronic Renal disease Chronic Abdominal pain * Disposition: TO HOME OR SELFCARE Time spent for discharge: 35 MINS Core Measure Documentation - Palliative Care Palliative Care/ Comfort Measures: Not Applicable - Core Measures Any of the following diagnoses?: none - VTE Discharge Requirements Deep Vein Thrombosis/Pulmonary Embolism Present on Admission: No Exam - Physical Exam Narrative exam: VITAL SIGNS: Reviewed. GENERAL: The patient appeared well nourished and normally developed. Vital signs as documented. HEAD: No signs of head trauma. EYES: Pupils are equal. Extraocular motions intact. EARS: Hearing grossly intact. MOUTH: Oropharynx is normal. NECK: No adenopathy, no JVD. CHEST: Chest with clear breath sounds bilaterally. No wheezes, rales, or rhonchi. CARDIAC: Regular rate and rhythm. S1 and S2, without murmurs, gallops, or rubs. VASCULAR: No Edema. Peripheral pulses normal and equal in all extremities. ABDOMEN: Soft, without detectable tenderness. No sign of distention. No rebound or guarding, and no masses palpated. Bowel Sounds normal. MUSCULOSKELETAL: Good range of motion of all major joints. Extremities without clubbing, cyanosis or edema. NEUROLOGIC EXAM: Alert and oriented x 3. No focal sensory or strength deficits. Speech normal. Follows commands. PSYCHIATRIC: Mood normal. SKIN: Age-appropriate rectal some blemishes - Constitutional Vitals: Temp Pulse Resp BP Pulse Ox 99.5 F 75 20 155/62 100 08/15/17 07:35 08/15/17 07:35 08/15/17 07:35 08/15/17 07:35 08/15/17 07:35 Plan Activity: advance as tolerated, fall precautions Diet: renal Special Instructions: record daily weights, record daily BP diary Follow up with: ALEJO ROCHE MD [Primary Care Provider] - 3-5 Days VERA RAMSEY MD [Staff Physician] - 7 Days HEAVEN EDDY MD [Staff Physician] - 7 Days
[2017-08-15] MEDS: TYLENOL PO PRN (09:47)
[2017-08-15] MEDS ORDERED: NACL 0.9 (PRIMING MACHINE ONLY DIALYSIS) MC ONE ×2 (10:41→10:45)
--- NOTE | 2017-08-15 11:08 | Progress Note ---
Assessment and Plan - Patient Problems (1) Hyperkalemia Current Visit: Yes Status: Acute Plan to address problem: resolved with HD (2) ESRD needing dialysis Current Visit: Yes Status: Chronic Plan to address problem: cont HD on MWF schedule (3) Anemia in end-stage renal disease Current Visit: Yes Status: Acute Plan to address problem: cont EPO with HD (4) Chest pain Current Visit: Yes Status: Acute Qualifiers: Chest pain type: unspecified Qualified Code(s): R07.9 - Chest pain, unspecified Plan to address problem: resolved, likely atypical in nature, follow up cardiology recommendations (5) HTN (hypertension) Current Visit: Yes Status: Chronic Qualifiers: Hypertension type: essential hypertension Qualified Code(s): I10 - Essential (primary) hypertension Subjective Date of service: 08/15/17 Principal diagnosis: ESRD Interval history: pt seen and examined during HD, BP 181/99 P 80 UF target 3L, awake, alert, in NAD Objective - Vital Signs Vital signs: Vital Signs - 12hr 08/15/17 08/15/17 04:20 07:35 Temperature 99.1 F 99.5 F Pulse Rate 69 75 Respiratory 18 20 Rate Blood Pressure 120/35 Blood Pressure 155/62 [Right] O2 Sat by Pulse 100 100 Oximetry - General Appearance General appearance: well-nourished, appears stated age EENT: ATNC, PERRL, mucous membranes moist Neck: no JVD Respiratory: Present: Clear to Ascultation Cardiology: regular, S1S2 Gastrointestinal: normoactive bowel sounds Integumentary: no rash, other (no edema ) Neurologic: no focal deficit, alert and oriented x3, strength 5/5, CN 3-12 intact Psychiatric: mood/affect appropriate, cooperative - Lab 08/15/17 04:04 08/15/17 04:04 Most recent lab results Calcium 9.2 mg/dL (8.4-10.2) 08/15/17 04:04
[2017-08-15 17:34] VITALS: BP 161/74
== END 2017-08-15 16:00 | disposition home or self-care (01) | DRG 205 ==
LOC: ED 12:05 → 2B-ACE 17:56
PROVIDERS: ADMIT Internal Medicine; ATTEND Internal Medicine
PROC: 5A1D70Z Performance of Urinary Filtration, Intermittent, Less than 6 Hours Per Day (ICD-10-PCS; 2017-08-12)
PROC: 5A1D70Z Performance of Urinary Filtration, Intermittent, Less than 6 Hours Per Day (ICD-10-PCS; principal; 2017-08-14)
PROC: 5A1D70Z Performance of Urinary Filtration, Intermittent, Less than 6 Hours Per Day (ICD-10-PCS; 2017-08-15)
DX: M94.0 Chondrocostal junction syndrome [Tietze] (principal); N18.6 End stage renal disease; I13.2 Hypertensive heart and chronic kidney disease with heart failure and with stage 5 chronic kidney disease, or end stage renal disease; E87.5 Hyperkalemia; D63.1 Anemia in chronic kidney disease; F03.90 Unspecified dementia, unspecified severity, without behavioral disturbance, psychotic disturbance, mood disturbance, and anxiety; I25.10 Atherosclerotic heart disease of native coronary artery without angina pectoris; F17.200 Nicotine dependence, unspecified, uncomplicated; G89.29 Other chronic pain; K21.9 Gastro-esophageal reflux disease without esophagitis; K76.89 Other specified diseases of liver; M19.90 Unspecified osteoarthritis, unspecified site; M10.9 Gout, unspecified; R10.9 Unspecified abdominal pain; R04.0 Epistaxis; Z99.2 Dependence on renal dialysis; Z86.73 Personal history of transient ischemic attack (TIA), and cerebral infarction without residual deficits; Z95.828 Presence of other vascular implants and grafts; Z82.49 Family history of ischemic heart disease and other diseases of the circulatory system; Z79.82 Long term (current) use of aspirin; Z79.899 Other long term (current) drug therapy; Z98.51 Tubal ligation status; Z95.5 Presence of coronary angioplasty implant and graft
CPT/HCPCS: 36415; 71010; 80048; 80061; 84484; 85025; 85027; 93005; 93010; 99406; A9270-GY; J0610; J1644; J2270; J7030

== ENCOUNTER 2017-08-20 11:21 | Emergency (ER) | payer MEDICARE ==
[2017-08-20] MEDS ORDERED: PEPCID IV ONE (13:34)
[2017-08-20] MEDS ORDERED: SUBLIMAZE IV ONE (13:34)
--- NOTE | 2017-08-20 13:35 | Emergency Department Report ---
ED General Adult HPI - General Chief complaint: Chest Pain Stated complaint: CHEST AND ABD PAIN Time Seen by Provider: 08/20/17 13:18 Source: patient, EMS (ems notes not available at time of chart dictation), RN notes reviewed, old records reviewed Mode of arrival: Stretcher Limitations: No Limitations - History of Present Illness Initial comments: This is a 67-year-old female. I have evaluated this patient multiple times. Please see my note from 07/13/2017 for the full details of the patient's past medical history. Of note, patient recently admitted to this hospital for chest pain, seen by cardiology, Dr. Santhosh Arnold, and he indicated that the patient had nonobstructive heart disease, coronary angiography performed at [facility] July 2017. Cardiology cleared her to go home from a cardiology standpoint/acute coronary syndrome standpoint. Patient presents to the ER today with her typical constellation of symptoms, which include chest pain that radiates to the back, some nausea, and acute on chronic abdominal pain. During review of old charts, it has been suggested that the patient may have some chronic pain issues. Patient indicates that her pain does not have exacerbating or relieving factors that she can recall, and radiates to the back. She reports it started in dialysis this morning, and it feels similar to prior episodes of pain. -: Gradual Location: chest, abdomen Radiation: back Consistency: constant Improves with: none Worsens with: none Associated Symptoms: chest pain. denies: confusion, cough, diaphoresis, fever/ chills, headaches, loss of appetite, malaise - Related Data Previous Rx's Medication Instructions Recorded Last Taken Type Aspirin EC [Aspirin Enteric Coated 81 mg PO QDAY #30 tablet 06/27/17 08/10/17 16 :00 Rx TAB] AtorvaSTATin [Lipitor] 80 mg PO QHS #30 tablet 06/27/17 08/10/17 20:00 Rx Carvedilol [Coreg] 12.5 mg PO BID #60 tablet 06/27/17 08/10/17 16:00 Rx Clopidogrel [Plavix] 75 mg PO QDAY #30 tablet 06/27/17 08/10/17 16:00 Rx ISOSORBIDE MONOnitrate [Imdur ER] 30 mg PO QDAY #30 tablet 06/27/17 08/03/17 16: 00 Rx Lisinopril [Zestril TAB] 20 mg PO QDAY #30 tablet 06/27/17 08/10/17 16:00 Rx Dicyclomine [Bentyl] 10 mg PO TID PRN #30 capsule 08/03/17 Unknown Rx Pantoprazole [Protonix TAB] 40 mg PO QDAY #30 tablet 08/03/17 08/10/17 16:00 Rx Allergies Allergy/AdvReac Type Severity Reaction Status Date / Time No Known Allergies Allergy Verified 06/15/17 10:31 ED Review of Systems ROS: Stated complaint: CHEST AND ABD PAIN Other details as noted in HPI Constitutional: denies: fever Eyes: denies: vision change ENT: denies: epistaxis Respiratory: denies: cough Cardiovascular: chest pain Gastrointestinal: abdominal pain Genitourinary: denies: dysuria Musculoskeletal: back pain Skin: as per HPI Neurological: denies: confusion Psychiatric: anxiety ED Past Medical Hx - Past Medical History Hx Hypertension: Yes Hx CVA: Yes (x 2) Hx Heart Attack/AMI: No (chronic chest pain, multiple visits over past year) Hx Congestive Heart Failure: Yes Hx Diabetes: No Hx GERD: Yes Hx Liver Disease: Yes (LESION) Hx Renal Disease: Yes (ESRD/dialysis M, W, F) Hx Sickle Cell Disease: No Hx Arthritis: Yes Hx Asthma: No Hx COPD: No Hx HIV: No Additional medical history: enlarged heart, gout - Surgical History Hx Coronary Stent: Yes Hx Open Heart Surgery: No Hx Cholecystectomy: No Hx Appendectomy: Yes Hx Breast Surgery: No Additional Surgical History: tubal ligation, vas cath. LUE fistula. cardiac workup includes a stress test on 12/21/2016 that was unremarkable. Patient status post PCI of RCA with subsequent subacute thrombus of the proximal RCA stent and angioplasty with resolution of thrombosis on November 2016. PCI 03/22/17 of RCA. 05/01/17 neg Lexiscan stress - Social History Smoking Status: Never Smoker Substance Use Type: None - Medications Home Medications: Home Medications Medication Instructions Recorded Confirmed Last Taken Type Aspirin EC [Aspirin Enteric Coated 81 mg PO QDAY #30 tablet 06/27/17 08/20/17 16:00 Rx TAB] AtorvaSTATin [Lipitor] 80 mg PO QHS #30 tablet 06/27/17 08/20/17 08/10/17 20:00 Rx Carvedilol [Coreg] 12.5 mg PO BID #60 tablet 06/27/17 08/20/17 08/10/17 16:00 Rx Clopidogrel [Plavix] 75 mg PO QDAY #30 tablet 06/27/17 08/20/17 08/10/17 16:00 Rx ISOSORBIDE MONOnitrate [Imdur ER] 30 mg PO QDAY #30 tablet 06/27/17 08/20/17 16:00 Rx Lisinopril [Zestril TAB] 20 mg PO QDAY #30 tablet 06/27/17 08/20/17 08/10/17 16: 00 Rx Dicyclomine [Bentyl] 10 mg PO TID PRN #30 capsule 08/03/17 08/20/17 Unknown Rx Pantoprazole [Protonix TAB] 40 mg PO QDAY #30 tablet 08/03/17 08/20/17 08/10/17 16:00 Rx ED Physical Exam - General Limitations: No Limitations General appearance: alert, in no apparent distress - Head Head exam: Present: atraumatic, normocephalic - Eye Eye exam: Present: normal appearance, EOMI. Absent: nystagmus - ENT ENT exam: Present: normal exam, normal orophraynx, mucous membranes moist, normal external ear exam - Neck Neck exam: Present: normal inspection, full ROM. Absent: tenderness, meningismus - Respiratory Respiratory exam: Present: normal lung sounds bilaterally. Absent: respiratory distress, chest wall tenderness - Cardiovascular Cardiovascular Exam: Present: regular rate, normal rhythm, normal heart sounds. Absent: systolic murmur, diastolic murmur, rubs, gallop - GI/Abdominal GI/Abdominal exam: Present: soft, tenderness, normal bowel sounds. Absent: distended, guarding, rebound, rigid, pulsatile mass - Extremities Exam Extremities exam: Present: normal inspection, full ROM, other (left upper extremity AV fistula, no redness, pus or streaking). Absent: pedal edema, joint swelling, calf tenderness - Back Exam Back exam: Present: normal inspection, full ROM. Absent: paraspinal tenderness , vertebral tenderness - Neurological Exam Neurological exam: Present: alert, oriented X3, other (Extraocular movements intact. Tongue midline. No facial droop. Facial sensation intact to light touch in the V1, V2, V3 distribution bilaterally. 5 and 5 strength in 4 extremities.. Sensation is intact to light touch in 4 extremities.). Absent: motor sensory deficit - Psychiatric Psychiatric exam: Present: anxious - Skin Skin exam: Present: warm, dry, intact, normal color. Absent: rash ED Course Vital Signs 08/20/17 08/20/17 08/20/17 11:59 14:46 16:49 Temperature 98.3 F 99.0 F 99.0 F Pulse Rate 83 83 85 Respiratory 17 19 17 Rate Blood Pressure 142/62 Blood Pressure 155/57 154/68 [Right] O2 Sat by Pulse 100 98 Oximetry 08/20/17 16:54 Temperature 99.0 F Pulse Rate 85 Respiratory 17 Rate Blood Pressure Blood Pressure 158/68 [Right] O2 Sat by Pulse Oximetry - Reevaluation(s) Reevaluation #1: 08/20/17 14:43 Differential diagnosis, including but not limited to: Pericardial effusion, pulmonary embolus, pneumonia, acute coronary syndrome, GERD, gastritis, costochondritis, intra-abdominal infection assessment and plan: Elderly female with multiple hospital evaluations for chest pain and abdominal pain. She is afebrile with reassuring vital signs, has been recently seen and cleared by cardiology from an ACS perspective. I have evaluated this patient multiple times personally for similar complaints. Given multiple recent hospitalizations, patient is at risk for pulmonary embolus , and given that she has advanced age and renal insufficiency, her d-dimer will mostly be elevated, so I elected to obtain an expedient CT scan of the chest. In addition, she had mild lower abdominal tenderness, so a CT scan and pelvis was obtained as well. Patient to be reports that she does not make urine. I have discussed her presentation with her covering fireworks maker, Dr. Todd; he indicates the patient can follow up for dialysis and outpatient tomorrow if all of her workup today is negative Address: [address] [place] [address], [address] [address] Hours: Open today 9AM5PM Suggest an edit 08/20/17 14:44 Reevaluation #2: 08/20/17 14:48 Elevated troponin is appreciated, this appears to be the patient's baseline, and is expected given her underlying renal insufficiency. Reevaluation #3: 08/20/17 15:06 Repeat EKG is abnormal but appears unchanged from prior. Reevaluation #4: 08/20/17 15:20 CT scan of the chest is negative. CT scan abdomen and pelvis is negative. Reevaluation #5: 08/20/17 15:40 talking on cell phone. no distress. repeat vitals appreciated repeat troponin is elevated but at baseline will d/c as planned - EJ/Peripheral Line Neck L Time Out Performed: Yes Indications: nurses unable to establis Skin Cleansed in Sterile Fashion: Yes Size: 20 Dressing Placed: Tegaderm Patient Tolerated Procedure: well ED Medical Decision Making - Lab Data Result diagrams: 08/20/17 13:28 08/20/17 13:28 Vital Signs 08/20/17 11:59 Temperature 98.3 F Pulse Rate 83 Respiratory 17 Rate Blood Pressure 142/62 - EKG Data -: EKG Interpreted by Me EKG shows normal: sinus rhythm Rate: normal - EKG Data 08/20/17 14:47 Sinus, 75 bpm, normal axis, left ventricular hypertrophy, premature ventricular contractions, multiple T-wave abnormalities, appears grossly unchanged from prior, not morphologically consistent with ST elevation myocardial infarction - Radiology Data Radiology results: report reviewed, image reviewed X-ray of the chest is negative for acute disease, chronic findings are noted Critical care attestation.: If time is entered above; I have spent that time in minutes in the direct care of this critically ill patient, excluding procedure time. ED Disposition Clinical Impression: ESRD (end stage renal disease) on dialysis, Elevated troponin, Abdominal pain Disposition: DC-01 TO HOME OR SELFCARE Is pt being admited?: No Does the pt Need Aspirin: No Condition: Stable Instructions: Chronic Kidney Disease (ED) Additional Instructions: Continue current outpatient medications. Follow up with dialysis tomorrow: Address: [address] [place] [address], [address], [place] [address] Hours: Open today 9AM5PM Suggest an edit Follow up with your primary care doctor, or fireworks maker or primary fish bait processing supervisor within the next week. Return to the ER right away with new pain, worsened pain, migration of pain, fevers, chills, lethargy, irritability, projectile vomiting, confusion, change in mental status, inability to tolerate liquid feeds. Referrals: PRIMARY CARE, [Primary Care Provider] - 3-5 Days FARZANA TODD MD [Staff Physician] - 3-5 Days ADALBERTO KONG MD [Staff Physician] - 3-5 Days
[2017-08-20 13:46] LABS: Basophils % (Auto) 0.6 % (0.0-1.8); Eosinophils % (Auto) 1.2 % (0.0-4.3); Hemoglobin 8.2 gm/dl (10.1-14.3); Mean Corpuscular HGB Conc 33 % (30-34); Mean Corpuscular Hemoglobin 30 pg (28-32); Mean Corpuscular Volume 91 fl (79-97); Platelet Count 278 K/mm3 (140-440); Red Blood Count 2.75 M/mm3 (3.65-5.03); Red Cell Distribution Width 18.9 % (13.2-15.2)
[2017-08-20] MEDS ORDERED: NACL ONE ×2 (13:58→14:09)
[2017-08-20] MEDS ORDERED: BENTYL PO ONE (14:00)
[2017-08-20 14:11] LABS: Calcium 8.2 mg/dL (8.4-10.2); Chloride 96.1 mmol/L (98-107); Potassium 3.9 mmol/L (3.6-5.0)
--- NOTE | 2017-08-20 14:18 | XRay Report ---
AP CHEST: HISTORY: chest pain There is moderate cardiomegaly with normal pulmonary vascularity. The lungs are clear. No evidence for pneumonia, CHF or pneumothorax. IMPRESSION: Cardiomegaly.
--- NOTE | 2017-08-20 15:15 | Cat Scan Report ---
CT ABDOMEN PELVIS WITH CONTRAST: HISTORY: abdominal pain. COMPARISON: none. TECHNIQUE: Helical CT in 1.25mm intervals following IV contrast. Sagittal and coronal reconstructions. FINDINGS: Lung bases: Moderate cardiomegaly. The visualized lung bases are well aerated. Liver: normal. Biliary system: normal. Pancreas: normal. Spleen: normal. Kidneys/ureters/bladder: There is moderate bilateral renal atrophy. No focal renal lesion or hydronephrosis. The ureters and bladder are within normal limits. Adrenal glands: normal. Aorta: Diffuse calcifications but no aneurysm or stenosis. Intestines: Unremarkable given no oral contrast was administered. Mild diverticulosis of the distal colon is noted.. Appendix: Not clearly identified. Pelvic viscera: normal. Musculoskeletal: Mild lumbar spondylosis. No acute fracture or suspicious bony lesion. IMPRESSION: No acute inflammatory process is appreciated. Cardiomegaly. Chronic renal parenchymal disease. Mild diverticulosis of the distal colon
--- NOTE | 2017-08-20 15:16 | Cat Scan Report ---
CTA CHEST: HISTORY: chest pain. COMPARISON: none. TECHNIQUE: Helical CT in 1.25mm intervals following IV contrast. Pulmonary embolus protocol. Sagittal and coronal reformatted images. Rotational MIP images. FINDINGS: Contrast bolus is satisfactory. No pulmonary embolus is identified. Thyroid gland: Normal. Tracheobronchial tree: Normal. Esophagus: Normal. Heart: Moderate cardiomegaly. Pericardium: Normal. Mediastinum: Normal. Lung Huang: normal. Pleural Spaces: Normal. Musculoskeletal: Osteopenia. Degenerative changes in the spine.. IMPRESSION: No evidence for pulmonary embolus. Cardiomegaly.
[2017-08-20 16:55] VITALS: BP 158/68
== END 2017-08-20 16:54 | disposition home or self-care (01) ==
LOC: ED 11:21
DX: I12.0 Hypertensive chronic kidney disease with stage 5 chronic kidney disease or end stage renal disease (principal); N18.6 End stage renal disease; Z99.2 Dependence on renal dialysis; Z79.82 Long term (current) use of aspirin; I63.9 Cerebral infarction, unspecified; K21.9 Gastro-esophageal reflux disease without esophagitis; M19.90 Unspecified osteoarthritis, unspecified site; Z98.890 Other specified postprocedural states
CPT/HCPCS: 36415; 36569; 71010; 71275; 74177; 80048; 80061; 84484; 85025; 93005; 93010; 96374; 96375; 99285; J3010; Q9967

== ENCOUNTER 2017-08-24 11:21 | Emergency (ER) | payer MEDICARE ==
[2017-08-24 11:45] VITALS: BP 166/81
== END 2017-08-24 14:14 | disposition left against medical advice (07) ==
LOC: ED 11:21
DX: R10.10 Upper abdominal pain, unspecified (principal); R07.9 Chest pain, unspecified; Z53.21 Procedure and treatment not carried out due to patient leaving prior to being seen by health care provider
CPT/HCPCS: 93005; 93010

== ENCOUNTER 2017-08-25 11:38 | Inpatient (IN) | payer MEDICARE ==
--- NOTE | 2017-08-25 14:35 | XRay Report ---
FINAL REPORT EXAM: XR CHEST 1V AP HISTORY: Chest pain TECHNIQUE: Chest, portable upright PRIORS: 08/12/2017 FINDINGS: Moderate cardiomegaly is unchanged. There is no congestion. There is subsegmental atelectasis in the left lung. IMPRESSION: Moderate cardiomegaly without congestion.
[2017-08-25 15:00] LABS: Basophils % (Auto) 0.6 % (0.0-1.8); Eosinophils % (Auto) 0.5 % (0.0-4.3); Hematocrit 26.3 % (30.3-42.9); Hemoglobin 8.5 gm/dl (10.1-14.3); Mean Corpuscular HGB Conc 32 % (30-34); Mean Corpuscular Hemoglobin 29 pg (28-32); Mean Corpuscular Volume 90 fl (79-97); Platelet Count 359 K/mm3 (140-440); Red Blood Count 2.92 M/mm3 (3.65-5.03)
[2017-08-25 15:08] LABS: Red Cell Distribution Width 20.6 % (13.2-15.2)
[2017-08-25 15:20] LABS: Calcium 8.6 mg/dL (8.4-10.2); Chloride 91.8 mmol/L (98-107); Potassium 4.8 mmol/L (3.6-5.0)
[2017-08-25] MEDS ORDERED: MORPHINE IV ONE (16:26)
[2017-08-25] MEDS ORDERED: BABY ASPIRIN PO ONE (16:26)
[2017-08-25] MEDS ORDERED: ZOFRAN IV ONE (16:26)
--- NOTE | 2017-08-25 16:32 | Emergency Department Report ---
ED Chest Pain HPI - General Chief Complaint: Chest Pain Stated Complaint: CHEST PAIN Time Seen by Provider: 08/25/17 16:12 Source: EMS Mode of arrival: Stretcher Limitations: No Limitations - History of Present Illness Initial Comments: Patient is 67 years old female history of ESRD on dialysis she was sent from dialysis center for chest pain that started today left-sided idea to left arm tightness in nature, associated with shortness of breath. Patient denied any fever nausea or vomiting. MD Complaint: chest pain -: This morning Onset: during rest Pain Location: substernal, left chest Pain Radiation: none Severity scale (0 -10): 6 Quality: tightness Improves With: rest Worsens With: exertion re: dyspnea - Related Data Previous Rx's Medication Instructions Recorded Last Taken Type Aspirin EC [Aspirin Enteric Coated 81 mg PO QDAY #30 tablet 06/27/17 08/10/17 16 :00 Rx TAB] AtorvaSTATin [Lipitor] 80 mg PO QHS #30 tablet 06/27/17 08/10/17 20:00 Rx Carvedilol [Coreg] 12.5 mg PO BID #60 tablet 06/27/17 08/10/17 16:00 Rx Clopidogrel [Plavix] 75 mg PO QDAY #30 tablet 06/27/17 08/10/17 16:00 Rx ISOSORBIDE MONOnitrate [Imdur ER] 30 mg PO QDAY #30 tablet 06/27/17 08/03/17 16: 00 Rx Lisinopril [Zestril TAB] 20 mg PO QDAY #30 tablet 06/27/17 08/10/17 16:00 Rx Dicyclomine [Bentyl] 10 mg PO TID PRN #30 capsule 08/03/17 Unknown Rx Pantoprazole [Protonix TAB] 40 mg PO QDAY #30 tablet 08/03/17 08/10/17 16:00 Rx Allergies Allergy/AdvReac Type Severity Reaction Status Date / Time No Known Allergies Allergy Verified 08/24/17 11:39 Heart Score - HEART Score History: Moderately suspicious EKG: Non-specific Age: > 65 Risk factors: > 3 risk factors or hx of atherosclerotic disease Troponin: 1-3x normal limit HEART Score: 7 - Critical Actions Critical Actions: >7 pts:50-65% risk of adverse cardiac event. Early invasive measures ED Review of Systems ROS: Stated complaint: CHEST PAIN Other details as noted in HPI Comment: All other systems reviewed and negative Constitutional: denies: chills, fever Respiratory: orthopnea, shortness of breath, SOB with exertion. denies: cough Cardiovascular: chest pain. denies: palpitations, dyspnea on exertion Gastrointestinal: denies: abdominal pain, nausea, vomiting, diarrhea, constipation, hematemesis, melena, hematochezia Genitourinary: denies: urgency, dysuria Neurological: denies: headache, weakness, numbness, paresthesias ED Past Medical Hx - Past Medical History Hx Hypertension: Yes Hx CVA: Yes (x 2) Hx Heart Attack/AMI: No (chronic chest pain, multiple visits over past year) Hx Congestive Heart Failure: Yes Hx Diabetes: No Hx GERD: Yes Hx Liver Disease: Yes (LESION) Hx Renal Disease: Yes (ESRD/dialysis M, W, F) Hx Sickle Cell Disease: No Hx Arthritis: Yes Hx Asthma: No Hx COPD: No Hx HIV: No Additional medical history: enlarged heart, gout - Surgical History Hx Coronary Stent: Yes Hx Open Heart Surgery: No Hx Cholecystectomy: No Hx Appendectomy: Yes Hx Breast Surgery: No Additional Surgical History: tubal ligation, vas cath. LUE fistula. cardiac workup includes a stress test on 12/21/2016 that was unremarkable. Patient status post PCI of RCA with subsequent subacute thrombus of the proximal RCA stent and angioplasty with resolution of thrombosis on November 2016. AICD placement Aug 2017. PCI 03/22/17 of RCA. 05/01/17 neg Lexiscan stress - Social History Smoking Status: Current Every Day Smoker Substance Use Type: None - Medications Home Medications: Home Medications Medication Instructions Recorded Confirmed Last Taken Type Aspirin EC [Aspirin Enteric Coated 81 mg PO QDAY #30 tablet 06/27/17 08/20/17 16:00 Rx TAB] AtorvaSTATin [Lipitor] 80 mg PO QHS #30 tablet 06/27/17 08/20/17 08/10/17 20:00 Rx Carvedilol [Coreg] 12.5 mg PO BID #60 tablet 06/27/17 08/20/17 08/10/17 16:00 Rx Clopidogrel [Plavix] 75 mg PO QDAY #30 tablet 06/27/17 08/20/17 08/10/17 16:00 Rx ISOSORBIDE MONOnitrate [Imdur ER] 30 mg PO QDAY #30 tablet 06/27/17 08/20/17 16:00 Rx Lisinopril [Zestril TAB] 20 mg PO QDAY #30 tablet 06/27/17 08/20/17 08/10/17 16: 00 Rx Dicyclomine [Bentyl] 10 mg PO TID PRN #30 capsule 08/03/17 08/20/17 Unknown Rx Pantoprazole [Protonix TAB] 40 mg PO QDAY #30 tablet 08/03/17 08/20/17 08/10/17 16:00 Rx ED Physical Exam - General Limitations: No Limitations General appearance: alert, in no apparent distress - Head Head exam: Present: atraumatic, normocephalic, normal inspection - Eye Eye exam: Present: normal appearance, PERRL - ENT ENT exam: Present: normal exam - Neck Neck exam: Present: normal inspection, full ROM. Absent: tenderness, meningismus, lymphadenopathy, thyromegaly - Respiratory Respiratory exam: Present: normal lung sounds bilaterally, decreased breath sounds. Absent: respiratory distress, wheezes, rales, rhonchi, chest wall tenderness, accessory muscle use, prolonged expiratory - Cardiovascular Cardiovascular Exam: Present: regular rate, normal rhythm, normal heart sounds. Absent: bradycardia, tachycardia, systolic murmur, diastolic murmur - GI/Abdominal GI/Abdominal exam: Present: soft, normal bowel sounds. Absent: distended, tenderness, guarding, rebound, rigid, diminished bowel sounds, organomegaly, mass, bruit, pulsatile mass, hernia - Extremities Exam Extremities exam: Present: normal inspection, full ROM, normal capillary refill - Back Exam Back exam: Present: normal inspection. Absent: tenderness, CVA tenderness (R), CVA tenderness (L) - Neurological Exam Neurological exam: Present: alert, oriented X3, CN II-XII intact, normal gait, reflexes normal. Absent: abnormal gait, motor sensory deficit - Skin Skin exam: Present: warm, intact, normal color. Absent: cyanosis, diaphoretic, erythema, urticaria, vesicles, petechiae, pallor ED Course Vital Signs 08/25/17 08/25/17 08/25/17 12:08 13:16 13:30 Pulse Rate 69 97 H 90 Respiratory 20 22 Rate Blood Pressure 182/98 171/91 163/86 O2 Sat by Pulse 96 96 99 Oximetry 08/25/17 08/25/17 08/25/17 13:46 14:00 14:16 Pulse Rate 93 H 94 H 92 H Respiratory 24 27 H Rate Blood Pressure 163/86 168/85 163/86 O2 Sat by Pulse 97 95 98 Oximetry 08/25/17 08/25/17 14:30 14:46 Pulse Rate 93 H 93 H Respiratory 22 Rate Blood Pressure 172/85 168/85 O2 Sat by Pulse 94 97 Oximetry MONE score - Mone Score Age > 65: (1) Yes Aspirin use within the Past 7 Days: (1) Yes 3 or more CAD Risk Factors: (1) Yes 2 or more Angina events in past 24 hrs: (0) No Known CAD with more than 50% Stenosis: (1) Yes Elevated Cardiac Markers: (1) Yes ST Deviation Greater than 0.5mm: (0) No MONE Score: 5 ED Medical Decision Making - Lab Data Result diagrams: 08/25/17 14:46 08/25/17 14:46 - EKG Data -: EKG Interpreted by Sd EKG shows normal: sinus rhythm Rate: normal - EKG Data When compared to previous EKG there are: no significant change Interpretation: no acute changes - Radiology Data Radiology results: report reviewed This x-ray showed no acute finding. - Medical Decision Making Discussed with Dr. Rooney, presenting the patient to him, he agreed to admit to his service. Critical care attestation.: If time is entered above; I have spent that time in minutes in the direct care of this critically ill patient, excluding procedure time. ED Disposition Clinical Impression: Chest pain, Non-STEMI (non-ST elevated myocardial infarction), Acute coronary syndrome Disposition: OP ADMIT IP TO THIS HOSP Is pt being admited?: Yes Condition: Stable Instructions: Chest Pain (ED) Referrals: PRIMARY CARE, [Primary Care Provider] - 3-5 Days
--- NOTE | 2017-08-25 17:24 | Event Note ---
Date: 08/25/17 Patient evaluated. Comes in for chest pain which has resolved while in ER. Patient sleeping.Has to be woken up. Labs reviewed. Troponin high but runs a high Troponin all the visits.' Had multiple CTA's and stress tests this year.Last MPI was in April 2017.Which was negative. Diagnosis:Atypical chest pain. Follow up with Nephrology and Cardiology as outpatient.
[2017-08-25] MEDS ORDERED: MILK OF MAGNESIA PO PRN (22:00)
[2017-08-25] MEDS ORDERED: AMBIEN PO PRN (22:00)
[2017-08-25] MEDS ORDERED: TYLENOL PO PRN (22:00)
[2017-08-25] MEDS ORDERED: DULCOLAX PR PRN (22:00)
[2017-08-25] MEDS ORDERED: ZOFRAN IV PRN (22:00)
--- NOTE | 2017-08-25 22:00 | Event Note ---
Date: 08/25/17
[2017-08-25] MEDS: PEPCID PO SCH (22:24)
[2017-08-25] MEDS: MORPHINE IV PRN (22:25)
[2017-08-26] MEDS: PERCOCET 5/325 PO PRN ×3 (01:00→18:05)
[2017-08-26] MEDS: MORPHINE IV PRN (05:50)
[2017-08-26 06:41] LABS: Basophils % (Auto) 0.6 % (0.0-1.8); Eosinophils % (Auto) 2.8 % (0.0-4.3); Hematocrit 26.5 % (30.3-42.9); Hemoglobin 8.4 gm/dl (10.1-14.3); Mean Corpuscular HGB Conc 32 % (30-34); Mean Corpuscular Hemoglobin 29 pg (28-32); Mean Corpuscular Volume 90 fl (79-97); Platelet Count 355 K/mm3 (140-440); Red Blood Count 2.93 M/mm3 (3.65-5.03); White Blood Count 4.9 K/mm3 (4.5-11.0)
[2017-08-26 06:46] LABS: Red Cell Distribution Width 21.6 % (13.2-15.2)
[2017-08-26 07:05] LABS: Albumin 3.3 g/dL (3.9-5); Albumin/Globulin Ratio 0.9 %; Bilirubin,Total 0.3 mg/dL (0.1-1.2); Calcium 8.3 mg/dL (8.4-10.2); Chloride 95.5 mmol/L (98-107); Potassium 5.2 mmol/L (3.6-5.0)
[2017-08-26] MEDS ORDERED: BENTYL PO PRN (09:08)
[2017-08-26] MEDS: PEPCID PO SCH ×2 (09:47→21:05)
--- NOTE | 2017-08-26 10:14 | History and Physical Report ---
CHIEF COMPLAINT: Left-sided chest pain since morning. HISTORY OF PRESENT ILLNESS: A 67-year-old -[place] female comes in for left-sided chest pain and shortness of breath while undergoing dialysis. The patient has recurrent problem many a time in the past. The patient had extensive workup for the chest pain. Her troponin is elevated today more than the usual, hence being admitted. PAST MEDICAL HISTORY: Significant for hypertension, coronary artery disease, hyperlipidemia, gastroesophageal reflux disease, recurrent abdominal pain. CURRENT MEDICATIONS: Lipitor 80 mg daily, Coreg 12.5 b.i.d., Plavix 75 once a day, Imdur 30 mg once a day, Zestril 20 mg once a day, Protonix 40 mg once a day. ALLERGIES: No known allergies. PAST SURGICAL HISTORY: Appendectomy. Tubal ligation. Vas-Cath and left upper extremity fistula. The patient had a stress test in December and April, which was negative. Also had a PCI of RCA in 08/2016. SOCIAL HISTORY: Smokes everyday. FAMILY HISTORY: Significant for hypertension. REVIEW OF SYSTEMS: Significant for left-sided chest pain. Otherwise, review of systems is essentially negative. PHYSICAL EXAMINATION: GENERAL: Elderly female, cooperative during examination, trying to sleep and rest. VITAL SIGNS: Blood pressure is 152/83, pulse is 88, respirations are 20, sats are 90%. HEENT: Unremarkable. Pupils equal and reactive. NECK: Supple, no lymphadenopathy, no thyromegaly. LUNGS: Clear to auscultation and percussion. No chest wall tenderness present. Good air entry. CARDIOVASCULAR: S1, S2 heard. No gallop, no murmur, no rub. Apical impulse in left fifth intercostal space and midclavicular line. ABDOMEN: Soft and benign. No hepatosplenomegaly. No guarding, no rigidity. Hernial orifices are normal. EXTREMITIES: Good pedal pulses. No pedal edema. CENTRAL NERVOUS SYSTEM: Alert and oriented x 4, nonfocal exam. SKIN: Normal. LABORATORY DATA: Significant for potassium of 4.8, BUN and creatinine of 72 and 9.1, hemoglobin is 8.5, hematocrit is 26.3. EKG normal sinus rhythm, nonspecific ST-T wave changes. Chest x-ray, no infiltrates. ASSESSMENT AND PLAN: 1. Atypical chest pain. The patient has elevated troponin, which is above baseline troponin of around 0.16. We will get more troponins. Lexiscan or stress test not ordered because the patient had multiple stress test in this year in December and April. We will get Cardiology input. 2. Coronary artery disease. Continue Plavix 75 mg daily and Imdur 30 mg daily. 3. Hypertension. Continue lisinopril 20 mg once a day. 4. Gastroesophageal reflux disease. Continue Protonix 40 mg once a day. 5. Hyperlipidemia. Continue Lipitor 80 mg daily. 6. Hypertension. Continue Coreg and lisinopril. 7. Deep vein thrombosis prophylaxis, heparin. 8. Chronic pain. The patient has multiple visits to multiple hospitals. The patient may have pain seeking behavior. We will consult the patient. JOB# [id number] CHRISTOPHER/RODY
[2017-08-26] MEDS: PROTONIX PO SCH (10:22)
[2017-08-26] MEDS: PLAVIX PO SCH (10:22)
[2017-08-26] MEDS: HALFPRIN EC PO SCH (10:22)
[2017-08-26] MEDS: ZESTRIL PO SCH (10:22)
[2017-08-26] MEDS: COREG PO SCH ×2 (10:23→21:04)
[2017-08-26] MEDS: IMDUR PO SCH (10:25)
--- NOTE | 2017-08-26 12:43 | Event Note ---
Date: 08/26/[address] Rooney that patient is followed by Dr. Kurtz, and consult has been reassigned to Dr. Kurtz. Will sign off.
[2017-08-26] MEDS: TORADOL IV PRN ×2 (13:28→20:46)
--- NOTE | 2017-08-26 14:42 | Progress Note ---
Assessment and Plan - Patient Problems (1) Chest pain Current Visit: Yes Status: Acute (2) Accelerated hypertension Current Visit: No Status: Acute (3) Back pain Current Visit: No Status: Acute (4) CAD (coronary artery disease) Current Visit: No Status: Acute (5) CHF (congestive heart failure) Current Visit: No Status: Acute (6) DVT prophylaxis Current Visit: No Status: Acute (7) ESRD (end stage renal disease) on dialysis Current Visit: No Status: Acute Subjective Date of service: 08/26/17 Objective - Constitutional Vitals: Vital Signs - 12hr 08/26/17 08/26/17 08/26/17 08:00 09:21 09:47 Temperature 98.5 F Pulse Rate 79 85 Respiratory 18 16 Rate Respiratory Rate [Abdomen] Blood Pressure Blood Pressure 143/77 [Right] O2 Sat by Pulse 98 Oximetry 08/26/17 08/26/17 08/26/17 10:00 10:22 10:23 Temperature Pulse Rate 85 85 Respiratory 18 Rate Respiratory 16 Rate [Abdomen] Blood Pressure 143/77 143/77 Blood Pressure [Right] O2 Sat by Pulse Oximetry 08/26/17 08/26/17 12:14 13:28 Temperature 97.8 F Pulse Rate 77 Respiratory 16 18 Rate Respiratory Rate [Abdomen] Blood Pressure Blood Pressure 143/67 [Right] O2 Sat by Pulse 94 Oximetry General appearance: Present: no acute distress, well-nourished - EENT Eyes: PERRL, EOM intact ENT: hearing intact, clear oral mucosa Ears: bilateral: normal - Neck Neck: supple, normal ROM - Respiratory Respiratory effort: normal Respiratory: bilateral: CTA - Breasts Breasts: normal - Cardiovascular Rhythm: regular Heart Sounds: Present: S1 & S2. Absent: gallop, rub Extremities: pulses intact, No edema, normal color, Full ROM - Gastrointestinal General gastrointestinal: Present: soft, non-tender, non-distended, normal bowel sounds - Genitourinary Female genitourinary: normal - Integumentary Integumentary: clear, warm, dry - Musculoskeletal Musculoskeletal: 1, strength equal bilaterally - Neurologic Neurologic: moves all extremities - Psychiatric Psychiatric: memory intact, appropriate mood/affect, intact judgment & insight - Labs CBC & Chem 7: 08/26/17 05:41 08/26/17 05:41 Labs: Abnormal lab results 08/25/17 08/25/17 08/25/17 Range/Units 14:46 14:46 17:08 RBC 2.92 L (3.65-5.03) M/mm3 Hgb 8.5 L (10.1-14.3) gm/dl Hct 26.3 L (30.3-42.9) % RDW 20.6 H (13.2-15.2) % Reynolds % (Auto) 11.6 H (0.0-7.3) % Reynolds # 0.9 H (0.0-0.8) K/mm3 Seg Neutrophils % 70.1 H (40.0-70.0) % Potassium (3.6-5.0) mmol/L Chloride 91.8 L (98-107) mmol/L Carbon Dioxide (22-30) mmol/L BUN 72 H (7-17) mg/dL Creatinine 9.1 H (0.7-1.2) mg/dL Calcium (8.4-10.2) mg/dL AST (5-40) units/L Alkaline Phosphatase (35-129) units/L Troponin T 0.465 H* D 0.443 H* (0.00-0.029) ng/mL Albumin (3.9-5) g/dL 08/26/17 08/26/17 08/26/17 Range/Units 05:41 05:41 09:17 RBC 2.93 L (3.65-5.03) M/mm3 Hgb 8.4 L (10.1-14.3) gm/dl Hct 26.5 L (30.3-42.9) % RDW 21.6 H (13.2-15.2) % Reynolds % (Auto) 14.8 H (0.0-7.3) % Reynolds # (0.0-0.8) K/mm3 Seg Neutrophils % (40.0-70.0) % Potassium 5.2 H (3.6-5.0) mmol/L Chloride 95.5 L (98-107) mmol/L Carbon Dioxide 32 H (22-30) mmol/L BUN 81 H (7-17) mg/dL Creatinine 9.8 H (0.7-1.2) mg/dL Calcium 8.3 L (8.4-10.2) mg/dL AST 46 H (5-40) units/L Alkaline Phosphatase 145 H (35-129) units/L Troponin T 0.487 H* (0.00-0.029) ng/mL Albumin 3.3 L (3.9-5) g/dL
[2017-08-27] MEDS: PERCOCET 5/325 PO PRN ×2 (00:20→17:02)
--- NOTE | 2017-08-27 09:06 | Progress Note ---
Assessment and Plan Assessment and plan: --Positive cardiac enzymes; nonspecific secondary to end-stage renal disease Patient had cardiac Catheterization 04/2017, patent stent, follows with cardiology [facility] 07/27/2017 at [place], nonobstructive coronary artery disease, LVEF 25%, patent RCA Optimize Cardiac medications, cardiology following --End-stage renal disease on hemodialysis; nephrology following, dialysis per schedule --History of coronary artery disease; continue current cardiac medications --Hypertension; moderate control, continue current antihypertensives and when necessary medications --Dyslipidemia; stable on lipid lowering medications --DVT prophylaxis; with heparin Closely monitor the patient and adjust the management Possible discharge in 1-2 days if stable History Interval history: Patient seen and examined. Medical records reviewed Recently had ICD placement done, complaints of intermittent chest pain Patient had extensive cardiac workup in the past Complaints of mild intermittent chest pain, no shortness of breath Vital signs reviewed Hospitalist Physical - Constitutional Vitals: Temp Pulse Resp BP Pulse Ox 98.2 F 69 18 148/69 98 08/27/17 08:24 08/27/17 08:24 08/27/17 08:24 08/27/17 08:24 08/27/17 08:24 General appearance: Present: no acute distress, well-nourished - EENT Eyes: Present: PERRL, EOM intact - Neck Neck: Present: supple, normal ROM - Respiratory Respiratory effort: normal Respiratory: bilateral: diminished, negative: rales, rhonchi, wheezing - Cardiovascular Rhythm: regular Heart Sounds: Present: S1 & S2 - Extremities Extremities: no ischemia, No edema - Abdominal General gastrointestinal: soft, non-tender, non-distended, normal bowel sounds - Integumentary Integumentary: Present: clear, warm - Psychiatric Psychiatric: appropriate mood/affect, cooperative - Neurologic Neurologic: CNII-XII intact, moves all extremities Results - Labs CBC & Chem 7: 08/26/17 05:41 08/26/17 05:41 Labs: Laboratory Last Values WBC 4.9 K/mm3 (4.5-11.0) 08/26/17 05:41 RBC 2.93 M/mm3 (3.65-5.03) L 08/26/17 05:41 Hgb 8.4 gm/dl (10.1-14.3) L 08/26/17 05:41 Hct 26.5 % (30.3-42.9) L 08/26/17 05:41 MCV 90 fl (79-97) 08/26/17 05:41 MCH 29 pg (28-32) 08/26/17 05:41 MCHC 32 % (30-34) 08/26/17 05:41 RDW 21.6 % (13.2-15.2) H 08/26/17 05:41 Plt Count 355 K/mm3 (140-440) 08/26/17 05:41 Lymph % (Auto) 28.3 % (13.4-35.0) 08/26/17 05:41 [place] % (Auto) 14.8 % (0.0-7.3) H 08/26/17 05:41 Eos % (Auto) 2.8 % (0.0-4.3) 08/26/17 05:41 Baso % (Auto) 0.6 % (0.0-1.8) 08/26/17 05:41 Lymph # 1.4 K/mm3 (1.2-5.4) 08/26/17 05:41 [place] # 0.7 K/mm3 (0.0-0.8) 08/26/17 05:41 Eos # 0.1 K/mm3 (0.0-0.4) 08/26/17 05:41 Baso # 0.0 K/mm3 (0.0-0.1) 08/26/17 05:41 Seg Neutrophils % 53.5 % (40.0-70.0) 08/26/17 05:41 Seg Neutrophils # 2.6 K/mm3 (1.8-7.7) 08/26/17 05:41 Sodium 145 mmol/L (137-145) 08/26/17 05:41 Potassium 5.2 mmol/L (3.6-5.0) H 08/26/17 05:41 Chloride 95.5 mmol/L (98-107) L 08/26/17 05:41 Carbon Dioxide 32 mmol/L (22-30) H 08/26/17 05:41 Anion Gap 23 mmol/L 08/26/17 05:41 BUN 81 mg/dL (7-17) H 08/26/17 05:41 Creatinine 9.8 mg/dL (0.7-1.2) H 08/26/17 05:41 Estimated GFR 5 ml/min 08/26/17 05:41 BUN/Creatinine Ratio 8 % 08/26/17 05:41 Glucose 71 mg/dL (65-100) 08/26/17 05:41 Calcium 8.3 mg/dL (8.4-10.2) L 08/26/17 05:41 Total Bilirubin 0.30 mg/dL (0.1-1.2) 08/26/17 05:41 AST 46 units/L (5-40) H 08/26/17 05:41 ALT 52 units/L (7-56) 08/26/17 05:41 Alkaline Phosphatase 145 units/L (35-129) H 08/26/17 05:41 Troponin T 0.534 ng/mL (0.00-0.029) H* 08/26/17 20:36 Total Protein 7.0 g/dL (6.3-8.2) 08/26/17 05:41 Albumin 3.3 g/dL (3.9-5) L 08/26/17 05:41 Albumin/Globulin Ratio 0.9 % 08/26/17 05:41
--- NOTE | 2017-08-27 09:37 | Consultation ---
History of Present Illness Consult date: 08/27/17 Requesting physician: ROXANNE BOND Consult reason: chest pain History of present illness: The patient is a 67 YO female with a past medical history significant for CAD, s /p PCI (PCI of RCA in 08/2016 with subsequent subacute thrombus of the proximal RCA stent and balloon angioplasty with resolution of thrombus on 11/28/2016, s/p additional PCI of RCA on 03/22/2017 @ [place]), dilated CMP, s/p S AICD implantation at [place] on 05/17/2017, systolic HF, ESRD on HD, HTN, PVD, recurrent chest pain, paz's esophagitis and diverticulitis, and tobacco use. She is followed in our office by Dr. Ford. She is a rather poor historian. 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 She denies any SOB, diaphoresis, dizziness or syncope. No exacerbating or relieving factors. On evaluation, pt's chest pain is reproducible with palpation and pt c/o epigastric pain with palpation. Pt states, "I just don't feel well." She is also c/o back pain and requesting an increase in her pain medication frequency. She states that she has been compliant with all of her cardiac medications. LHC done 07/27/2017 at [place] showed nonobstructive CAD with severely reduced LVEF and elevated LVEDP (LM: LI, LAD: mild to moderate LI, LCx: LI, RCA: dominant, mild-moderate LI with patent previous RCA stent, LVEDP: 38 mmHg, LVEF 25 % with diffuse global hypokinesis). Echo done 07/27/2017 showed EF 20-25%, mildly dilated LA, moderate to severe TR , moderate MR, moderately reduced RV systolic function, RVSP 63mmHg, moderate pulm HTN. Past History Past Medical History: CAD, dialysis, ESRD, heart failure (systolic), hypertension, PVD Past Surgical History: Other (AICD; PCI) Social history: smoking. denies: alcohol abuse, prescription drug abuse Medications and Allergies Allergies Allergy/AdvReac Type Severity Reaction Status Date / Time No Known Allergies Allergy Verified 08/25/17 22:07 Home Medications Medication Instructions Recorded Confirmed Last Taken Type Aspirin EC [Aspirin Enteric Coated 81 mg PO QDAY #30 tablet 06/27/17 08/27/17 1 Day Ago Rx TAB] ~08/26/17 AtorvaSTATin [Lipitor] 80 mg PO QHS #30 tablet 06/27/17 08/27/17 1 Day Ago Rx ~08/26/17 Carvedilol [Coreg] 12.5 mg PO BID #60 tablet 06/27/17 08/27/17 1 Day Ago Rx ~08/26/17 Clopidogrel [Plavix] 75 mg PO QDAY #30 tablet 06/27/17 08/27/17 1 Day Ago Rx ~08/26/17 ISOSORBIDE MONOnitrate [Imdur ER] 30 mg PO QDAY #30 tablet 06/27/17 08/27/17 1 Day Ago Rx ~08/26/17 Lisinopril [Zestril TAB] 20 mg PO QDAY #30 tablet 06/27/17 08/27/17 1 Day Ago Rx ~08/26/17 Dicyclomine [Bentyl] 10 mg PO TID PRN #30 capsule 08/03/17 08/27/17 1 Day Ago Rx ~08/26/17 Pantoprazole [Protonix TAB] 40 mg PO QDAY #30 tablet 08/03/17 08/27/17 1 Day Ago Rx ~08/26/17 Active Meds: Active Medications Acetaminophen (Tylenol) 650 mg PO Q4H PRN PRN Reason: Pain MILD(1-3)/Fever >100.5/SANCHEZ Aspirin (Halfprin Ec) 81 mg PO QDAY [facility] Last Admin: 08/26/17 10:22 Dose: 81 mg Atorvastatin Calcium (Lipitor) 80 mg PO QHS [facility] Last Admin: 08/26/17 21:04 Dose: 80 mg Bisacodyl (Dulcolax) 10 mg [place] QDAY PRN PRN Reason: Constipation unrelieved by MOM Carvedilol (Coreg) 12.5 mg PO BID [facility] Last Admin: 08/26/17 21:04 Dose: 12.5 mg Clopidogrel Bisulfate (Plavix) 75 mg PO QDAY [facility] Last Admin: 08/26/17 10:22 Dose: 75 mg Dicyclomine HCl (Bentyl) 10 mg PO TID PRN PRN Reason: Pain Famotidine (Pepcid) 10 mg PO BID [facility] Last Admin: 08/26/17 21:05 Dose: 10 mg Isosorbide Mononitrate (Imdur) 30 mg PO QDAY [facility] Last Admin: 08/26/17 10:25 Dose: 30 mg Ketorolac Tromethamine (Toradol) 15 mg IV Q6H PRN PRN Reason: Pain, Mild (1-3) Stop: 08/31/17 09:16 Last Admin: 08/26/17 20:46 Dose: 15 mg Lisinopril (Zestril) 20 mg PO QDAY [facility] Last Admin: 08/26/17 10:22 Dose: 20 mg Magnesium Hydroxide (Milk Of Magnesia) 30 ml PO Q4H PRN PRN Reason: Constipation Last Admin: 08/25/17 22:24 Dose: 30 ml Ondansetron HCl (Zofran) 4 mg IV Q8H PRN PRN Reason: N/V unrelieved by Reglan Oxycodone/Acetaminophen (Percocet 5/325) 1 tab PO Q6H PRN PRN Reason: Pain, Moderate (4-6) Last Admin: 08/27/17 00:20 Dose: 1 tab Pantoprazole Sodium (Protonix) 40 mg PO QDAY [facility] Last Admin: 08/26/17 10:22 Dose: 40 mg Zolpidem Tartrate (Ambien) 5 mg PO QHS PRN PRN Reason: Insomnia Review of Systems Constitutional: no weight loss, no weight gain, no fever, no chills, no sweats Ears, nose, mouth and throat: no ear pain, no nose pain, no nasal congestion, no nasal discharge Cardiovascular: chest pain, high blood pressure, no orthopnea, no palpitations, no rapid/irregular heart beat, no edema, no syncope, no lightheadedness, no shortness of breath, no dyspnea on exertion, no paroxysmal nocturnal dyspnea, no leg edema Respiratory: no cough, no shortness of breath, no dyspnea on exertion, no congestion, no wheezing, no pain on inspiration Gastrointestinal: abdominal pain, nausea, vomiting, no diarrhea, no constipation , no change in bowel habits Genitourinary Female: no pelvic pain, no flank pain, no dysuria, no urinary frequency, no urgency Musculoskeletal: no neck stiffness, no neck pain, no shooting arm pain, no arm numbness/tingling, no low back pain, no shooting leg pain, no leg numbness/ tingling, no redness of joints Integumentary: no rash, no pruritis, no redness, no sores, no wounds Neurological: no head injury, no paralysis, no weakness, no parathesias, no numbness, no tingling, no seizures, no syncope Psychiatric: no anxiety Endocrine: no cold intolerance, no heat intolerance Hematologic/Lymphatic: no easy bruising, no easy bleeding Allergic/Immunologic: no urticaria, no wheezing, no persistent infections Physical Examination Vital Signs Pulse Resp BP Pulse Ox 69 20 182/98 96 08/25/17 12:08 08/25/17 12:08 08/25/17 12:08 08/25/17 12:08 General appearance: no acute distress HEENT: Positive: PERRL, Normocephaly, Mucus Membranes Moist Neck: Positive: neck supple, trachea midline Cardiac: Positive: Reg Rate and Rhythm, S1/S2, Systolic Murmur Lungs: Positive: clear to auscultation Neuro: Positive: Grossly Intact, Cranial Nerve 2-12 Intact Abdomen: Positive: Soft, Tender (epigastric) Results 08/26/17 05:41 08/26/17 05:41 - Imaging and Cardiology Echo: report reviewed (07/27/2017 showed EF 20-25%, mildly dilated LA, moderate to severe TR, moderate MR, moderately reduced RV systolic function, RVSP 63mmHg , moderate pulm HTN.) Cardiac cath: report reviewed (07/27/2017 at [place] showed nonobstructive CAD with severely reduced LVEF and elevated LVEDP (LM: LI, LAD: mild to moderate LI , LCx: LI, RCA: dominant, mild-moderate LI with patent previous RCA stent, LVEDP : 38 mmHg, LVEF 25 % with diffuse global hypokinesis) EKG: report reviewed, image reviewed EKG interpretations - Telemetry EKG Rhythm: Sinus Rhythm - EKG Sinus rhythms and dysrhythmias: sinus rhythm Chamber hypertrophy or enlargement: left ventricular hypertro Repolarization changes or abnormalities: early repolarization due to LVH Assessment and Plan Assessment: Chest pain, atypical - ECG with NAF' reproducible with palpation Abdominal pain / N&V Back pain NSTEMI type 2 - ECG with no acute ischemic changes; Chris flat but more elevated than prior admissions CAD - PCI of RCA in 08/2016 with subsequent subacute thrombus of the proximal RCA stent and balloon angioplasty with resolution of thrombus on 11/28/2016, s/p additional PCI of RCA on 03/22/2017 @ [place] Dilated I/CMP - EF 20-25% S/p S AICD 04/2017 NSVT ESRD on HD Anemia Hypertension Hyperlipidemia PVD Paz's esophagitis and diverticulitis Tobacco use - cessation encouraged H/o noncompliance with medication regimen Plan: LHC done 07/27/2017 at [place] showed nonobstructive CAD with severely reduced LVEF and elevated LVEDP (LM: LI, LAD: mild to moderate LI, LCx: LI, RCA: dominant, mild-moderate LI with patent previous RCA stent, LVEDP: 38 mmHg, LVEF 25 % with diffuse global hypokinesis). Optimize anti-ischemic regimen. Cont to trend Chris. Consider repeat coronary angiography if Chris trending upwards and/or chest pain persists. Cont present cardiac management, including ASA, lipitor, coreg, plavix, lisinopril, imdur. Assessment and plan reviewed with pt at bedside. The patient has been seen in conjunction with Dr. Newton who agrees with the assessment and plan of care.
[2017-08-27] MEDS: TORADOL IV PRN (09:49)
[2017-08-27 10:16] LABS: Creatine Kinase MB 3.2 ng/mL (0.0-4.0)
[2017-08-27] MEDS ORDERED: NACL 0.9% 100 ML IV PRN (11:01)
[2017-08-27] MEDS ORDERED: NACL 0.9 (PRIMING MACHINE ONLY DIALYSIS) MC ONE (16:59)
[2017-08-27] MEDS: PROTONIX PO SCH (17:00)
[2017-08-27] MEDS: ZESTRIL PO SCH (17:00)
[2017-08-27] MEDS: HALFPRIN EC PO SCH (17:00)
[2017-08-27] MEDS: PLAVIX PO SCH (17:01)
[2017-08-27] MEDS: IMDUR PO SCH (17:01)
[2017-08-27] MEDS: COREG PO SCH ×2 (17:05→22:56)
[2017-08-27] MEDS: PEPCID PO SCH ×2 (17:06→22:56)
--- NOTE | 2017-08-27 22:48 | Consultation ---
History of Present Illness - Reason for Consult Consult date: 08/27/17 end stage renal disease Requesting physician: RANDI ZACARIAS - History of Present Illness 67 yo AAF with Hypertension complicated by ESRD on Hemodialysis on a Sunday schedule at [facility] dialysis, with h/o multiple hospitalizations over the last year due to recurrent chest pain/abdominal pain presented again with similar symptoms. She has a history of coronary artery disease with Percutaneous coronary intervention and stent placement. She had right in-stent stenosis of the right coronary artery for which she had angioplasty done this summer. Patient had cardiac Catheterization again on 07/27 at [place], nonobstructive coronary artery disease, LVEF 25%, patent RCA. We are consulted for management of her ESRD/HTN. Past History Past Medical History: CAD, dialysis, ESRD, heart failure (systolic), hypertension, PVD Past Surgical History: Other (AICD; PCI) Social history: smoking. denies: alcohol abuse, prescription drug abuse Medications and Allergies Allergies Allergy/AdvReac Type Severity Reaction Status Date / Time No Known Allergies Allergy Verified 08/25/17 22:07 Home Medications Medication Instructions Recorded Confirmed Last Taken Type Aspirin EC [Aspirin Enteric Coated 81 mg PO QDAY #30 tablet 06/27/17 08/27/17 1 Day Ago Rx TAB] ~08/26/17 AtorvaSTATin [Lipitor] 80 mg PO QHS #30 tablet 06/27/17 08/27/17 1 Day Ago Rx ~08/26/17 Carvedilol [Coreg] 12.5 mg PO BID #60 tablet 06/27/17 08/27/17 1 Day Ago Rx ~08/26/17 Clopidogrel [Plavix] 75 mg PO QDAY #30 tablet 06/27/17 08/27/17 1 Day Ago Rx ~08/26/17 ISOSORBIDE MONOnitrate [Imdur ER] 30 mg PO QDAY #30 tablet 06/27/17 08/27/17 1 Day Ago Rx ~08/26/17 Lisinopril [Zestril TAB] 20 mg PO QDAY #30 tablet 06/27/17 08/27/17 1 Day Ago Rx ~08/26/17 Dicyclomine [Bentyl] 10 mg PO TID PRN #30 capsule 08/03/17 08/27/17 1 Day Ago Rx ~08/26/17 Pantoprazole [Protonix TAB] 40 mg PO QDAY #30 tablet 08/03/17 08/27/17 1 Day Ago Rx ~08/26/17 Active Meds: Active Medications Acetaminophen (Tylenol) 650 mg PO Q4H PRN PRN Reason: Pain MILD(1-3)/Fever >100.5/SANCHEZ Aspirin (Halfprin Ec) 81 mg PO QDAY [facility] Last Admin: 08/27/17 17:00 Dose: 81 mg Atorvastatin Calcium (Lipitor) 80 mg PO QHS [facility] Last Admin: 08/26/17 21:04 Dose: 80 mg Bisacodyl (Dulcolax) 10 mg AL QDAY PRN PRN Reason: Constipation unrelieved by MOM Carvedilol (Coreg) 12.5 mg PO BID [facility] Last Admin: 08/27/17 17:05 Dose: Not Given Clopidogrel Bisulfate (Plavix) 75 mg PO QDAY [facility] Last Admin: 08/27/17 17:01 Dose: 75 mg Dicyclomine HCl (Bentyl) 10 mg PO TID PRN PRN Reason: Pain Famotidine (Pepcid) 10 mg PO BID [facility] Last Admin: 08/27/17 17:06 Dose: Not Given Sodium Chloride (Nacl 0.9%) 100 mls @ 999 mls/hr IV JOAN PRN PRN Reason: Hypotension Isosorbide Mononitrate (Imdur) 30 mg PO QDAY [facility] Last Admin: 08/27/17 17:01 Dose: 30 mg Ketorolac Tromethamine (Toradol) 15 mg IV Q6H PRN PRN Reason: Pain, Mild (1-3) Stop: 08/31/17 09:16 Last Admin: 08/27/17 09:49 Dose: 15 mg Lisinopril (Zestril) 20 mg PO QDAY [facility] Last Admin: 08/27/17 17:00 Dose: 20 mg Magnesium Hydroxide (Milk Of Magnesia) 30 ml PO Q4H PRN PRN Reason: Constipation Last Admin: 08/25/17 22:24 Dose: 30 ml Ondansetron HCl (Zofran) 4 mg IV Q8H PRN PRN Reason: N/V unrelieved by Reglan Oxycodone/Acetaminophen (Percocet 5/325) 1 tab PO Q6H PRN PRN Reason: Pain, Moderate (4-6) Last Admin: 08/27/17 17:02 Dose: 1 tab Pantoprazole Sodium (Protonix) 40 mg PO QDAY [facility] Last Admin: 08/27/17 17:00 Dose: 40 mg Zolpidem Tartrate (Ambien) 5 mg PO QHS PRN PRN Reason: Insomnia Review of Systems Constitutional: no weight loss, no weight gain, no fever, no chills Ears, nose, mouth and throat: no tinnitis, no decreased hearing Cardiovascular: chest pain, no orthopnea, no palpitations Respiratory: no cough, no hemoptysis Gastrointestinal: abdominal pain, no nausea, no vomiting Genitourinary Female: no dysmenorrhea, no pelvic pain, no flank pain Rectal: no pain, no incontinence, no bleeding Musculoskeletal: low back pain, no neck pain Integumentary: pruritis, no rash Neurological: no paralysis, no weakness Psychiatric: anxiety Endocrine: no cold intolerance, no heat intolerance Hematologic/Lymphatic: no easy bruising, no easy bleeding Exam - Vital Signs Vital signs: Vital Signs Pulse Resp BP Pulse Ox 69 20 182/98 96 08/25/17 12:08 08/25/17 12:08 08/25/17 12:08 08/25/17 12:08 - General Appearance General appearance: well-developed, well-nourished, appears stated age EENT: PERRL, mucous membranes moist Neck: Present: neck supple, trachea midline. Absent: JVD/HJR, Masses Respiratory: Clear to Ascultation Heart: regular Gastrointestinal: Present: normal. Absent: tenderness, distended, masses, guarding Integumentary: no rash, warm and dry Neurologic: no focal deficit, alert and oriented x3, gait normal, strength 5/5 Musculoskeletal: Absent: deformities, joint swelling Psychiatric: mood/affect appropriate, cooperative Results - Lab Results 08/26/17 05:41 08/26/17 05:41 Most recent lab results Calcium 8.3 mg/dL (8.4-10.2) L 08/26/17 05:41 Assessment and Plan 1. End-stage renal disease on hemodialysis 2. Recurrent chest pain, hx of Coronary artery disease s/p PCI 3. Essential Hypertension 4. Chronic abdominal pain 5. Anemia of ESRD 6. Anxiety disorder/ depression Plan: HD today and will continue on MWF schedule BP stable. Continue present management Pt with multiple hospitalizations with simialr symptoms. Consider [facility] consult for anxiety disorder/depression [place] on dialysis Continue present BP regimen.
[2017-08-28 01:07] LABS: Creatine Kinase MB 2.4 ng/mL (0.0-4.0)
--- NOTE | 2017-08-28 07:57 | Progress Note ---
Assessment and Plan 1. End-stage renal disease on hemodialysis 2. Recurrent chest pain, hx of Coronary artery disease s/p PCI 3. Essential Hypertension 4. Chronic abdominal pain 5. Anemia of ESRD 6. Anxiety disorder/ depression Plan: HD MWF schedule BP stable. Continue present management [place] on dialysis D/c planning per primary team Subjective Date of service: 08/28/17 Interval history: Pt states that she wants to go home. She is all dressed up Objective - Vital Signs Vital signs: Vital Signs - 12hr 08/27/17 08/28/17 08/28/17 22:56 00:00 01:03 Temperature 98.7 F Pulse Rate 84 70 71 Respiratory 16 Rate Blood Pressure 162/75 147/70 O2 Sat by Pulse 95 Oximetry 08/28/17 04:54 Temperature 98.4 F Pulse Rate 75 Respiratory 18 Rate Blood Pressure 135/57 O2 Sat by Pulse 97 Oximetry - General Appearance General appearance: well-developed, well-nourished, appears stated age EENT: PERRL, mucous membranes moist Neck: no JVD, no thyromegaly, no carotid bruit, supple Respiratory: Present: Clear to Ascultation Cardiology: regular, normal heart rate, S1S2, no murmurs Gastrointestinal: normoactive bowel sounds, no tenderness Integumentary: no rash, warm and dry Neurologic: no focal deficit, alert and oriented x3, reflexes 2+ and symmetric, gait normal, strength 5/5 Musculoskeletal: no deformities, no erythema, no cyanosis, no clubbing Psychiatric: mood/affect appropriate, cooperative - Lab 08/26/17 05:41 08/26/17 05:41 Most recent lab results Calcium 8.3 mg/dL (8.4-10.2) L 08/26/17 05:41
--- NOTE | 2017-08-28 08:20 | Discharge Summary ---
Providers - Providers Date of Admission: 08/25/17 18:41 Date of discharge: 08/28/17 Attending physician: RANDI ZACARIAS 08/26/17 15:24 Consult to Cardiology [CONS] Routine Consulting Provider: ELLEN GAY Reason For Exam: chest pain 08/27/17 09:02 Consult to Physician [CONS] Routine Consulting Provider: VERA RAMSEY Reason For Exam: ESRD/HD Place consult to:: renal Notified:: office Phone number called:: [phone] Was contact made?: Yes If yes, spoke with:: karena Time called:: 09:35 Primary care physician: OFFICE ASSOCIATE Hospitalization Reason for admission: left-sided chest pain Condition: Stable Pertinent studies: chest x-ray; cardiomegaly Hospital course: 67-year-old -English female patient with significant history of coronary artery disease and multiple medical problems as mentioned below is admitted through emergency room with left-sided chest pain, Patient was symptomatically managed, evaluated by cardiology, medications were optimized Patient had recent workup, hence no cardiac workup was planned Patient's symptoms significantly improved, Today's comfortable no new complaints Vital signs stable, physical examination prior to discharge is unremarkable Smoking cessation counseling done, Counseling done and advised to comply with medications diet and follow-up visits Patient verbalized understanding, Cardiology clearedfor DC, patient is hemodynamically and clinically stable at discharge Discharge diagnosis and management: --Positive cardiac enzymes; nonspecific secondary to end-stage renal disease Patient had cardiac Catheterization 04/2017, patent stent, follows with cardiology C 07/27/2017 at [place], nonobstructive coronary artery disease, LVEF 25%, patent RCA Optimize Cardiac medications, cardiology following --S/p S AICD 04/2017; stable --History of coronary artery disease; continue current cardiac medications --Hypertension; moderate control, continue current antihypertensives and when necessary medications --Dyslipidemia; stable on lipid lowering medications --PVD; continue antiplatelets and statins --Ongoing Tobacco use ; smoking cessation counseling done, nicotine patch as needed --Medical noncompliance counseling done, advised to comply with medications, diet, follow-up visits Verbalized understanding --End-stage renal disease on hemodialysis; nephrology following, dialysis per schedule --Anemia of chronic kidney disease, low crit during dialysis as needed Disposition: DC TO HOME OR SELFCARE Time spent for discharge: 32 min Core Measure Documentation - Palliative Care Palliative Care/ Comfort Measures: Not Applicable - Core Measures Any of the following diagnoses?: heart failure - Heart Failure Discharge Requirements JENNIFER/ARB for LVSD if EF <40%: Yes Beta nikolas at discharge: Yes Exam - Constitutional Vitals: Temp Pulse Resp BP Pulse Ox 98.4 F 75 18 135/57 97 08/28/17 04:54 08/28/17 04:54 08/28/17 04:54 08/28/17 04:54 08/28/17 04:54 General appearance: Present: no acute distress, well-nourished - EENT Eyes: Present: PERRL, EOM intact - Neck Neck: Present: supple, normal ROM - Respiratory Respiratory effort: normal Respiratory: bilateral: diminished, negative: rales, rhonchi, wheezing - Cardiovascular Rhythm: regular Heart Sounds: Present: S1 & S2 - Extremities Extremities: no ischemia, No edema - Abdominal General gastrointestinal: Present: soft, non-tender, non-distended, normal bowel sounds - Integumentary Integumentary: Present: clear, warm - Musculoskeletal Musculoskeletal: strength equal bilaterally - Psychiatric Psychiatric: appropriate mood/affect, cooperative - Neurologic Neurologic: CNII-XII intact, moves all extremities Plan Activity: no restrictions Diet: low salt, other (cardiac diet) Special Instructions: smoking cessation Additional Instructions: Advised smoking cessation. Strongly advised to comply with medications, diet, follow-up visits. If you have chest pain or shortness of breath, contact M.D. or go to emergency room Follow up with: [facility] [Provider Group] - 7 Days PRIMARY MD MELCHOR [Primary Care Provider] - 3-5 Days CORNELIA MCLEAN MD [Staff Physician] - 7 Days
[2017-08-28 09:09] VITALS: BP 171/82
[2017-08-28] MEDS: IMDUR PO SCH (09:33)
[2017-08-28] MEDS: PROTONIX PO SCH (09:33)
[2017-08-28] MEDS: ZESTRIL PO SCH (09:34)
[2017-08-28] MEDS: PLAVIX PO SCH (09:34)
[2017-08-28] MEDS: HALFPRIN EC PO SCH (09:34)
[2017-08-28] MEDS: PEPCID PO SCH (09:34)
[2017-08-28] MEDS: PERCOCET 5/325 PO PRN (09:35)
[2017-08-28] MEDS: COREG PO SCH (09:35)
--- NOTE | 2017-08-28 13:45 | Progress Note ---
Assessment and Plan Assessment: Chest pain, atypical - currently resolved; ECG with NAF; reproducible with palpation Abdominal pain / N&V - resolved Back pain - chronic per pt report Elevated troponins - ECG with no acute ischemic changes; Chris flat but more elevated than prior admissions CAD - PCI of RCA in 08/2016 with subsequent subacute thrombus of the proximal RCA stent and balloon angioplasty with resolution of thrombus on 11/28/2016, s/p additional PCI of RCA on 03/22/2017 @ [place] Dilated I/CMP - EF 20-25% S/p S AICD 04/2017 NSVT ESRD on HD Anemia Hypertension Hyperlipidemia PVD Randolph's esophagitis and diverticulitis Tobacco use - cessation encouraged H/o noncompliance with medication regimen Plan: LHC done 07/27/2017 at [place] showed nonobstructive CAD with severely reduced LVEF and elevated LVEDP (LM: LI, LAD: mild to moderate LI, LCx: LI, RCA: dominant, mild-moderate LI with patent previous RCA stent, LVEDP: 38 mmHg, LVEF 25 % with diffuse global hypokinesis). Chris flat. Chest pain resolved. Cont present cardiac management, including ASA, lipitor, coreg, plavix, lisinopril, imdur. Currently stable cardiac status. Pt may discharge home from cardiology standpoint. Recommend follow up in our office with Amanda Spicer NP, within 1-2 weeks of hospital discharge ([phone]). Assessment and plan reviewed with pt at bedside. The patient has been seen in conjunction with Dr. Newton who agrees with the assessment and plan of care. Subjective Date of service: 08/28/17 Principal diagnosis: chest pain Interval history: pt states chest pain has resolved, c/o chronic back pain, states she wishes to be discharged home. Objective Last Vital Signs Temp 97.9 F 08/28/17 08:03 Pulse 80 08/28/17 09:35 Resp 18 08/28/17 10:00 BP 171/82 08/28/17 09:35 Pulse Ox 99 08/28/17 08:03 - Physical Examination HEENT: Positive: PERRL, Normocephaly, Mucus Membranes Moist Neck: Positive: neck supple, trachea midline. Negative: JVD/HJR, Masses Cardiac: Positive: Reg Rate and Rhythm, irregularly irregular, S1/S2, Systolic Murmur Lungs: Positive: clear to auscultation Neuro: Positive: Grossly Intact, Cranial Nerve 2-12 Intact Abdomen: Positive: Soft, Tender (epigastric) - Labs and Meds Cardiac Enzymes 08/28/17 Range/Units 00:22 CK-MB (CK-2) 2.4 (0.0-4.0) ng/mL Lipids 08/28/17 Range/Units 00:22 Triglycerides 68 (2-149) mg/dL Cholesterol 137 (50-199) mg/dL HDL Cholesterol 49 (40-59) mg/dL Cholesterol/HDL Ratio 2.79 % - Imaging and Cardiology EKG: report reviewed, image reviewed Echo: report reviewed (07/27/2017 showed EF 20-25%, mildly dilated LA, moderate to severe TR, moderate MR, moderately reduced RV systolic function, RVSP 63mmHg , moderate pulm HTN.) Cardiac cath: report reviewed (07/27/2017 at [place] showed nonobstructive CAD with severely reduced LVEF and elevated LVEDP (LM: LI, LAD: mild to moderate LI , LCx: LI, RCA: dominant, mild-moderate LI with patent previous RCA stent, LVEDP : 38 mmHg, LVEF 25 % with diffuse global hypokinesis) - EKG Sinus rhythms and dysrhythmias: sinus rhythm Chamber hypertrophy or enlargement: left ventricular hypertro Repolarization changes or abnormalities: early repolarization due to LVH
== END 2017-08-28 11:40 | disposition home or self-care (01) | DRG 280 ==
LOC: ED 11:38 → 4A 18:41
PROVIDERS: ADMIT Internal Medicine; ATTEND Internal Medicine
PROC: 5A1D70Z Performance of Urinary Filtration, Intermittent, Less than 6 Hours Per Day (ICD-10-PCS; principal; 2017-08-27)
DX: I21.A1 Myocardial infarction type 2 (principal); N18.6 End stage renal disease; I13.2 Hypertensive heart and chronic kidney disease with heart failure and with stage 5 chronic kidney disease, or end stage renal disease; I50.20 Unspecified systolic (congestive) heart failure; I47.1 Supraventricular tachycardia; K57.92 Diverticulitis of intestine, part unspecified, without perforation or abscess without bleeding; I42.0 Dilated cardiomyopathy; I24.9 Acute ischemic heart disease, unspecified; K21.9 Gastro-esophageal reflux disease without esophagitis; E78.5 Hyperlipidemia, unspecified; I25.10 Atherosclerotic heart disease of native coronary artery without angina pectoris; F17.200 Nicotine dependence, unspecified, uncomplicated; R07.89 Other chest pain; M19.90 Unspecified osteoarthritis, unspecified site; I73.9 Peripheral vascular disease, unspecified; I27.20 Pulmonary hypertension, unspecified; K22.70 Barrett's esophagus without dysplasia; D64.9 Anemia, unspecified; F41.9 Anxiety disorder, unspecified; F32.9 Major depressive disorder, single episode, unspecified; M54.9 Dorsalgia, unspecified; M10.9 Gout, unspecified; D63.1 Anemia in chronic kidney disease; Z95.1 Presence of aortocoronary bypass graft; Z86.73 Personal history of transient ischemic attack (TIA), and cerebral infarction without residual deficits; Z98.51 Tubal ligation status; Z95.810 Presence of automatic (implantable) cardiac defibrillator; Z90.49 Acquired absence of other specified parts of digestive tract; Z82.49 Family history of ischemic heart disease and other diseases of the circulatory system; Z79.02 Long term (current) use of antithrombotics/antiplatelets; Z91.14 Patient's other noncompliance with medication regimen; Z99.2 Dependence on renal dialysis; Z71.6 Tobacco abuse counseling; Z71.89 Other specified counseling
CPT/HCPCS: 36415; 71010; 80048; 80053; 80061; 82550; 82553; 84484; 85025; 93005; 93010; 96374; 96375; A9270-GY; J1885; J2270; J2405; J7030

== ENCOUNTER 2017-09-02 19:34 | Inpatient (IN) | payer MEDICARE ==
[2017-09-02] MEDS ORDERED: SUBLIMAZE IV ONE (20:13)
[2017-09-02] MEDS ORDERED: ASPIRIN PO ONE (20:13)
[2017-09-02] MEDS ORDERED: NITRO-BID 2% TP ONE (20:13)
[2017-09-02] MEDS ORDERED: ZOFRAN IV ONE (20:13)
[2017-09-02 20:37] LABS: Basophils % (Auto) 0.9 % (0.0-1.8); Eosinophils % (Auto) 0.6 % (0.0-4.3); Hematocrit 30.7 % (30.3-42.9); Mean Corpuscular HGB Conc 32 % (30-34); Mean Corpuscular Hemoglobin 29 pg (28-32); Mean Corpuscular Volume 90 fl (79-97); Platelet Count 282 K/mm3 (140-440); Red Blood Count 3.41 M/mm3 (3.65-5.03); White Blood Count 4.7 K/mm3 (4.5-11.0)
--- NOTE | 2017-09-02 20:37 | Emergency Department Report ---
HPI - General Chief Complaint: Dyspnea/Respdistress Time Seen by Provider: 09/02/17 20:06 - HPI HPI: Room 19 The patient is a 67-year-old female presenting with a chief complaint of chest pain. Patient states she developed abdominal pain and chest pain and headache this morning. The patient states her substernal chest pain is described as a constant pressure associated with shortness of breath, diaphoresis and nausea without vomiting. The patient currently gets her pain score of 8/10. The patient states her last stress test and cardiac catheterization both occurred over 5 years ago Location: Chest, see above Duration: One day Quality: Pressure Severity: 04/26 Modifying factors: [see above] Context: [see above] Mode of transportation: [not driving] ED Past Medical Hx - Past Medical History Hx Hypertension: Yes Hx CVA: Yes (x 2) Hx Congestive Heart Failure: Yes Hx GERD: Yes Hx Liver Disease: Yes (LESION) Hx Renal Disease: Yes (ESRD/dialysis M, W, F) Hx Arthritis: Yes Additional medical history: enlarged heart, gout - Surgical History Past Surgical History?: Yes Hx Coronary Stent: Yes Hx Appendectomy: Yes Additional Surgical History: tubal ligation, vas cath. LUE fistula. cardiac workup includes a stress test on 12/21/2016 that was unremarkable. Patient status post PCI of RCA with subsequent subacute thrombus of the proximal RCA stent and angioplasty with resolution of thrombosis on November 2016. AICD placement Aug 2017. PCI 03/22/17 of RCA. 05/01/17 neg Lexiscan stress - Family History Family history: no significant - Social History Smoking Status: Former Smoker (none 1 month) Substance Use Type: Prescribed - Medications Home Medications: Home Medications Medication Instructions Recorded Confirmed Last Taken Type Aspirin EC [Aspirin Enteric Coated 81 mg PO QDAY #30 tablet 06/27/17 08/27/17 1 Day Ago Rx TAB] ~08/26/17 AtorvaSTATin [Lipitor] 80 mg PO QHS #30 tablet 06/27/17 08/27/17 1 Day Ago Rx ~08/26/17 Carvedilol [Coreg] 12.5 mg PO BID #60 tablet 06/27/17 08/27/17 1 Day Ago Rx ~08/26/17 Clopidogrel [Plavix] 75 mg PO QDAY #30 tablet 06/27/17 08/27/17 1 Day Ago Rx ~08/26/17 ISOSORBIDE MONOnitrate [Imdur ER] 30 mg PO QDAY #30 tablet 06/27/17 08/27/17 1 Day Ago Rx ~08/26/17 Lisinopril [Zestril TAB] 20 mg PO QDAY #30 tablet 06/27/17 08/27/17 1 Day Ago Rx ~08/26/17 Dicyclomine [Bentyl] 10 mg PO TID PRN #30 capsule 08/03/17 08/27/17 1 Day Ago Rx ~08/26/17 Pantoprazole [Protonix TAB] 40 mg PO QDAY #30 tablet 08/03/17 08/27/17 1 Day Ago Rx ~08/26/17 ED Review of Systems ROS: Stated complaint: ENRIQUE/CHEST PAIN Other details as noted in HPI Constitutional: diaphoresis Respiratory: shortness of breath Cardiovascular: chest pain Gastrointestinal: nausea. denies: vomiting Neurological: headache Physical Exam - Physical Exam Vital Signs: Vital Signs 09/02/17 09/02/17 09/02/17 20:00 20:08 20:09 Temperature 98.1 F 98.1 F Pulse Rate 96 H 96 H Respiratory 20 20 20 Rate Blood Pressure 169/81 Blood Pressure 169/81 [Right] O2 Sat by Pulse 95 95 95 Oximetry Physical Exam: GENERAL: The patient is well-developed well-nourished female lying on stretcher appearing to be in mild discomfort. [] HEENT: Normocephalic. Atraumatic. Extraocular motions are intact. Patient has moist mucous membranes. NECK: Supple. Trachea midline CHEST/LUNGS: Clear to auscultation. There is no respiratory distress noted. HEART/CARDIOVASCULAR: Regular. There is no tachycardia. There is no gallop rub or murmur. ABDOMEN: Abdomen is soft, nontender. Patient has normal bowel sounds. There is no abdominal distention. SKIN: There is no rash. There is no edema. There is no diaphoresis. NEURO: The patient is awake, alert, and oriented. The patient is cooperative. The patient has normal speech MUSCULOSKELETAL: There is no evidence of acute injury. ED Course Vital Signs 09/02/17 09/02/17 09/02/17 20:00 20:08 20:09 Temperature 98.1 F 98.1 F Pulse Rate 96 H 96 H Respiratory 20 20 20 Rate Blood Pressure 169/81 Blood Pressure 169/81 [Right] O2 Sat by Pulse 95 95 95 Oximetry ED Medical Decision Making - Lab Data Result diagrams: 09/02/17 20:28 09/02/17 20:28 Laboratory Tests 09/02/17 09/02/17 20:28 20:28 WBC 4.7 RBC 3.41 L Hgb 10.0 L Hct 30.7 MCV 90 MCH 29 MCHC 32 RDW 20.0 H Plt Count 282 Lymph % (Auto) 19.3 [place] % (Auto) 14.5 H Eos % (Auto) 0.6 Baso % (Auto) 0.9 Lymph # 0.9 L [place] # 0.7 Eos # 0.0 Baso # 0.0 Seg Neutrophils % 64.7 Seg Neutrophils # 3.0 Sodium 140 Potassium 4.1 Chloride 91.3 L Carbon Dioxide 30 Anion Gap 23 BUN 32 H Creatinine 7.1 H Estimated GFR 7 BUN/Creatinine Ratio 5 Glucose 70 Calcium 9.1 Troponin T 0.362 H* - EKG Data -: EKG Interpreted by Me EKG shows normal: sinus rhythm Rate: normal - EKG Data When compared to previous EKG there are: no significant change Interpretation: unchanged when compared t (08/25/2017) - Radiology Data Radiology results: report reviewed (chest x-ray), image reviewed (chest x-ray) interpreted by me: Chest [id number]. No pneumothorax FINAL REPORT PROCEDURE: AP semi upright portable chest x-ray TECHNIQUE: Chest radiograph AP portable semi upright view. CPT 53493 HISTORY: Shortness of breath COMPARISON: Prior chest x-ray 08/25/2017 FINDINGS: Cardiomegaly is unchanged. Pulmonary vasculature not significantly distended no infiltrates masses or effusions are identified. No acute bony abnormalities are identified. There is an electronic stimulating device implanted in the left upper quadrant with an electronic lead projecting over mediastinum. IMPRESSION: Cardiomegaly. No acute abnormality is seen.. Transcribed By: CORRINE Dictated By: KELLEN BANSAL MD Electronically Authenticated By: KELLEN BANSAL MD Signed Date/Time: 09/02/171634 DD/ 163 TD/TT: 09/02/171634 - Differential Diagnosis ACS, GERD, pericarditis, anxiety Critical care attestation.: If time is entered above; I have spent that time in minutes in the direct care of this critically ill patient, excluding procedure time. ED Disposition Clinical Impression: Chest pain, ESRD (end stage renal disease) on dialysis Disposition: OP ADMIT IP TO THIS HOSP Is pt being admited?: Yes Does the pt Need Aspirin: Yes Condition: Fair Instructions: Chest Pain (ED) Referrals: CON VALDES MD [Primary Care Provider] - 3-5 Days Time of Disposition: 21:13 (hospitalist paged (Dr. Osmel العراقي))
[2017-09-02 21:03] LABS: Calcium 9.1 mg/dL (8.4-10.2); Chloride 91.3 mmol/L (98-107); Potassium 4.1 mmol/L (3.6-5.0)
--- NOTE | 2017-09-02 21:52 | History and Physical Report ---
History of Present Illness Date of examination: 09/02/17 Date of admission: 09/02/17 History of present illness: This is a 67-year-old female who presents to the emerge department with chief complaint of chest pain. Patient with recent admission and discharge on for same complaints of chest pain. Patient with cardiac catheterization in April of this year which revealed moderate LV dysfunction and EF of 35-40% with no significant coronary lesions with patent stents in the ostial and mid RCA. Also, C 07/27/2017 at [place], nonobstructive coronary artery disease, LVEF 25%, patent RCA. Patient denies any other complaints. No nausea, vomiting or abdominal pain. Patient does have elevated troponin, which I suspect is chronic. No fever or chills. No cough, cold-like symptoms. Past History Past Medical History: anemia, ESRD, hypertension, hyperlipidemia, other (NSVT, Randolph's esophagitis) Social history: smoking Family history: no significant family history Medications and Allergies Allergies Allergy/AdvReac Type Severity Reaction Status Date / Time No Known Allergies Allergy Verified 08/25/17 22:07 Home Medications Medication Instructions Recorded Confirmed Last Taken Type Aspirin EC [Aspirin Enteric Coated 81 mg PO QDAY #30 tablet 06/27/17 09/02/17 Rx TAB] AtorvaSTATin [Lipitor] 80 mg PO QHS #30 tablet 06/27/17 09/02/17 09/02/17 Rx Carvedilol [Coreg] 12.5 mg PO BID #60 tablet 06/27/17 09/02/17 09/02/17 Rx Clopidogrel [Plavix] 75 mg PO QDAY #30 tablet 06/27/17 09/02/17 09/02/17 Rx ISOSORBIDE MONOnitrate [Imdur ER] 30 mg PO QDAY #30 tablet 06/27/17 09/02/17 Rx Lisinopril [Zestril TAB] 20 mg PO QDAY #30 tablet 06/27/17 09/02/17 09/02/17 Rx Dicyclomine [Bentyl] 10 mg PO TID PRN #30 capsule 08/03/17 09/02/17 09/02/17 Rx Pantoprazole [Protonix TAB] 40 mg PO QDAY #30 tablet 08/03/17 09/02/17 09/02/17 Rx Review of Systems All systems: negative Exam - Constitutional Vitals: Temp Pulse Resp BP Pulse Ox 98.1 F 96 H 18 169/81 100 09/02/17 20:08 09/02/17 20:36 09/02/17 20:16 09/02/17 20:36 09/02/17 20:16 General appearance: Present: no acute distress, well-nourished - EENT Eyes: Present: PERRL ENT: hearing intact, clear oral mucosa - Neck Neck: Present: supple, normal ROM - Respiratory Respiratory effort: normal Respiratory: bilateral: CTA - Cardiovascular Heart Sounds: Present: S1 & S2. Absent: rub, click - Extremities Extremities: pulses symmetrical, No edema Peripheral Pulses: within normal limits - Abdominal General gastrointestinal: Present: soft, non-tender, non-distended, normal bowel sounds Female genitourinary: Present: normal - Integumentary Integumentary: Present: clear, warm, dry - Musculoskeletal Musculoskeletal: gait normal, strength equal bilaterally - Psychiatric Psychiatric: appropriate mood/affect, intact judgment & insight - Neurologic Neurologic: CNII-XII intact, moves all extremities Results - Labs CBC & Chem 7: 09/02/17 20:28 09/02/17 20:28 Labs: Laboratory Last Values WBC 4.7 K/mm3 (4.5-11.0) 09/02/17 20:28 RBC 3.41 M/mm3 (3.65-5.03) L 09/02/17 20:28 Hgb 10.0 gm/dl (10.1-14.3) L 09/02/17 20:28 Hct 30.7 % (30.3-42.9) 09/02/17 20:28 MCV 90 fl (79-97) 09/02/17 20:28 MCH 29 pg (28-32) 09/02/17 20:28 MCHC 32 % (30-34) 09/02/17 20:28 RDW 20.0 % (13.2-15.2) H 09/02/17 20:28 Plt Count 282 K/mm3 (140-440) 09/02/17 20:28 Lymph % (Auto) 19.3 % (13.4-35.0) 09/02/17 20:28 [place] % (Auto) 14.5 % (0.0-7.3) H 09/02/17 20:28 Eos % (Auto) 0.6 % (0.0-4.3) 09/02/17 20:28 Baso % (Auto) 0.9 % (0.0-1.8) 09/02/17 20:28 Lymph # 0.9 K/mm3 (1.2-5.4) L 09/02/17 20:28 [place] # 0.7 K/mm3 (0.0-0.8) 09/02/17 20:28 Eos # 0.0 K/mm3 (0.0-0.4) 09/02/17 20:28 Baso # 0.0 K/mm3 (0.0-0.1) 09/02/17 20:28 Seg Neutrophils % 64.7 % (40.0-70.0) 09/02/17 20:28 Seg Neutrophils # 3.0 K/mm3 (1.8-7.7) 09/02/17 20:28 Sodium 140 mmol/L (137-145) 09/02/17 20:28 Potassium 4.1 mmol/L (3.6-5.0) 09/02/17 20:28 Chloride 91.3 mmol/L (98-107) L 09/02/17 20:28 Carbon Dioxide 30 mmol/L (22-30) 09/02/17 20:28 Anion Gap 23 mmol/L 09/02/17 20:28 BUN 32 mg/dL (7-17) H 09/02/17 20:28 Creatinine 7.1 mg/dL (0.7-1.2) H 09/02/17 20:28 Estimated GFR 7 ml/min 09/02/17 20:28 BUN/Creatinine Ratio 5 % 09/02/17 20:28 Glucose 70 mg/dL (65-100) 09/02/17 20:28 Calcium 9.1 mg/dL (8.4-10.2) 09/02/17 20:28 Troponin T 0.362 ng/mL (0.00-0.029) H* 09/02/17 20:28 Assessment and Plan Assessment and plan: Chest pain, atypical. Patient will be placed on chest pain protocol. Cardiology consultation. Cont present cardiac management, including ASA, lipitor, coreg, plavix, lisinopril, imdur. Elevated troponins. ECG with no acute ischemic changes; Chris appear to be chronically elevated. Continue supportive care. CAD - PCI of RCA in 08/2016 with subsequent subacute thrombus of the proximal RCA stent and balloon angioplasty with resolution of thrombus on 11/28/2016, s/p additional PCI of RCA on 03/22/2017 @ [facility] I/CMP - EF 20-25%. Patient is S/p S AICD 04/2017 NSVT. Telemetry monitoring. ESRD on HD. Nephrology consultation. Resume hemodialysis. Anemia. Follow H&H and transfuse for hemoglobin less than 7. Hypertension. Resume antihypertensive medications. Hyperlipidemia. Continue medications. PVD Randolph's esophagitis and diverticulitis. Tobacco use - cessation encouraged H/o noncompliance with medication regimen
[2017-09-02] MEDS ORDERED: ZOFRAN IV PRN (21:55)
[2017-09-02] MEDS ORDERED: SODIUM CHLORIDE FLUSH SYRINGE 10 ML IV PRN (21:55)
[2017-09-02] MEDS ORDERED: TYLENOL PO PRN (21:55)
[2017-09-02] MEDS ORDERED: DULCOLAX PR PRN (21:55)
[2017-09-02] MEDS ORDERED: MILK OF MAGNESIA PO PRN (21:55)
[2017-09-02] MEDS ORDERED: BENTYL PO PRN (21:58)
[2017-09-02] MEDS ORDERED: COREG ONE (22:33)
[2017-09-02] MEDS: COREG PO SCH (22:35)
[2017-09-03] MEDS: MORPHINE IV PRN ×5 (00:46→22:14)
[2017-09-03 07:19] LABS: Basophils % (Auto) 0.6 % (0.0-1.8); Eosinophils % (Auto) 2.6 % (0.0-4.3); Hematocrit 31.4 % (30.3-42.9); Hemoglobin 10.1 gm/dl (10.1-14.3); Mean Corpuscular HGB Conc 32 % (30-34); Mean Corpuscular Hemoglobin 29 pg (28-32); Mean Corpuscular Volume 91 fl (79-97); Platelet Count 289 K/mm3 (140-440); Red Blood Count 3.46 M/mm3 (3.65-5.03)
[2017-09-03 07:20] LABS: Calcium 8.7 mg/dL (8.4-10.2)
[2017-09-03 07:21] LABS: Chloride 91.1 mmol/L (98-107); Potassium 4.1 mmol/L (3.6-5.0)
[2017-09-03 07:28] LABS: Red Cell Distribution Width 20.2 % (13.2-15.2)
--- NOTE | 2017-09-03 08:25 | Progress Note ---
<ELIZABETH ANTONIO - Last Filed: 09/03/17 14:54> Assessment and Plan Assessment and plan: This is a 67-year-old female who presents to the emerge department with chief complaint of chest pain. Patient with recent admission and discharge on for same complaints of chest pain. Patient with cardiac catheterization in April of this year which revealed moderate LV dysfunction and EF of 35-40% with no significant coronary lesions with patent stents in the ostial and mid RCA. Also, LHC 07/27/2017 at [place], nonobstructive coronary artery disease, LVEF 25%, patent RCA. Patient denies any other complaints. No nausea, vomiting or abdominal pain. Patient does have elevated troponin, which is likely chronic. No fever or chills. No cough, cold-like symptoms. Chest pain, atypical. Patient on chest pain protocol Cardiology following recommends no repeat ischemic eval or echo at this time. Cont present cardiac management, including ASA, lipitor, coreg, plavix, lisinopril, imdur. Elevated troponins ECG with no acute ischemic changes Chris appear to be chronically elevated Continue supportive care. CAD - PCI of RCA in 08/2016 with subsequent subacute thrombus of the proximal RCA stent and balloon angioplasty with resolution of thrombus on 11/28/2016, s/p additional PCI of RCA on 03/22/2017 @ [place] Dilated I/CMP EF 20-25%. Patient is S/p S AICD 04/2017 NSVT Telemetry monitoring. ESRD on HD Nephrology consultation Resume hemodialysis, MWF schedule Anemia Improving Follow H&H and transfuse for hemoglobin less than 7. Hypertension Controlled on current antihypertensive medications, continue Hyperlipidemia Continue medications. PVD Randolph's esophagitis and diverticulitis. Tobacco use - cessation encouraged H/o noncompliance with medication regimen DVT Prophylaxis SCDs History Interval history: Patient was seen and examined. Only complains of mild chest discomfort. Denies SOB, [place]. Hospitalist Physical - Constitutional Vitals: Temp Pulse Resp BP Pulse Ox 98.2 F 72 16 138/69 97 09/02/17 23:53 09/03/17 03:08 09/02/17 23:53 09/02/17 23:53 09/02/17 23:53 General appearance: Present: no acute distress, well-nourished - EENT Eyes: Present: PERRL, EOM intact ENT: hearing intact, clear oral mucosa - Neck Neck: Present: supple, normal ROM - Respiratory Respiratory effort: normal Respiratory: bilateral: CTA - Cardiovascular Rhythm: regular Heart Sounds: Present: S1 & S2 - Extremities Extremities: no ischemia, No edema Peripheral Pulses: within normal limits - Abdominal General gastrointestinal: soft, non-tender - Integumentary Integumentary: Present: clear, warm, dry - Psychiatric Psychiatric: appropriate mood/affect, cooperative - Neurologic Neurologic: CNII-XII intact, moves all extremities - Allied Health Allied health notes reviewed: nursing Results - Labs CBC & Chem 7: 09/03/17 05:54 09/03/17 05:54 Labs: Laboratory Last Values WBC 4.0 K/mm3 (4.5-11.0) L 09/03/17 05:54 RBC 3.46 M/mm3 (3.65-5.03) L 09/03/17 05:54 Hgb 10.1 gm/dl (10.1-14.3) 09/03/17 05:54 Hct 31.4 % (30.3-42.9) 09/03/17 05:54 MCV 91 fl (79-97) 09/03/17 05:54 MCH 29 pg (28-32) 09/03/17 05:54 MCHC 32 % (30-34) 09/03/17 05:54 RDW 20.2 % (13.2-15.2) H 09/03/17 05:54 Plt Count 289 K/mm3 (140-440) 09/03/17 05:54 Lymph % (Auto) 30.7 % (13.4-35.0) 09/03/17 05:54 [place] % (Auto) 14.1 % (0.0-7.3) H 09/03/17 05:54 Eos % (Auto) 2.6 % (0.0-4.3) 09/03/17 05:54 Baso % (Auto) 0.6 % (0.0-1.8) 09/03/17 05:54 Lymph # 1.2 K/mm3 (1.2-5.4) 09/03/17 05:54 [place] # 0.6 K/mm3 (0.0-0.8) 09/03/17 05:54 Eos # 0.1 K/mm3 (0.0-0.4) 09/03/17 05:54 Baso # 0.0 K/mm3 (0.0-0.1) 09/03/17 05:54 Seg Neutrophils % 52.0 % (40.0-70.0) 09/03/17 05:54 Seg Neutrophils # 2.1 K/mm3 (1.8-7.7) 09/03/17 05:54 Sodium 139 mmol/L (137-145) 09/03/17 05:54 Potassium 4.1 mmol/L (3.6-5.0) 09/03/17 05:54 Chloride 91.1 mmol/L (98-107) L 09/03/17 05:54 Carbon Dioxide 33 mmol/L (22-30) H 09/03/17 05:54 Anion Gap 19 mmol/L 09/03/17 05:54 BUN 37 mg/dL (7-17) H 09/03/17 05:54 Creatinine 7.8 mg/dL (0.7-1.2) H 09/03/17 05:54 Estimated GFR 6 ml/min 09/03/17 05:54 BUN/Creatinine Ratio 5 % 09/03/17 05:54 Glucose 109 mg/dL (65-100) H 09/03/17 05:54 Calcium 8.7 mg/dL (8.4-10.2) 09/03/17 05:54 Troponin T 0.358 ng/mL (0.00-0.029) H* 09/03/17 05:54 <CON WARNER - Last Filed: 09/04/17 00:04> Assessment and Plan Assessment and plan: I saw and evaluated the patient. I agree with the findings and the plan of care as documented in the Nurse Practitioner's~note, with the following corrections and additions. Patient with ESRD on dialysis, CAD, peripheral vascular disease. She presents with chest pain. cardiology following. Hospitalist Physical - Constitutional Vitals: Temp Pulse Resp BP Pulse Ox 99.0 F 69 18 124/44 95 09/03/17 22:24 09/03/17 22:24 09/03/17 22:24 09/03/17 22:24 09/03/17 22:24 Results - Labs CBC & Chem 7: 09/03/17 05:54 09/03/17 05:54 Labs: Laboratory Last Values WBC 4.0 K/mm3 (4.5-11.0) L 09/03/17 05:54 RBC 3.46 M/mm3 (3.65-5.03) L 09/03/17 05:54 Hgb 10.1 gm/dl (10.1-14.3) 09/03/17 05:54 Hct 31.4 % (30.3-42.9) 09/03/17 05:54 MCV 91 fl (79-97) 09/03/17 05:54 MCH 29 pg (28-32) 09/03/17 05:54 MCHC 32 % (30-34) 09/03/17 05:54 RDW 20.2 % (13.2-15.2) H 09/03/17 05:54 Plt Count 289 K/mm3 (140-440) 09/03/17 05:54 Lymph % (Auto) 30.7 % (13.4-35.0) 09/03/17 05:54 [place] % (Auto) 14.1 % (0.0-7.3) H 09/03/17 05:54 Eos % (Auto) 2.6 % (0.0-4.3) 09/03/17 05:54 Baso % (Auto) 0.6 % (0.0-1.8) 09/03/17 05:54 Lymph # 1.2 K/mm3 (1.2-5.4) 09/03/17 05:54 [place] # 0.6 K/mm3 (0.0-0.8) 09/03/17 05:54 Eos # 0.1 K/mm3 (0.0-0.4) 09/03/17 05:54 Baso # 0.0 K/mm3 (0.0-0.1) 09/03/17 05:54 Seg Neutrophils % 52.0 % (40.0-70.0) 09/03/17 05:54 Seg Neutrophils # 2.1 K/mm3 (1.8-7.7) 09/03/17 05:54 Sodium 139 mmol/L (137-145) 09/03/17 05:54 Potassium 4.1 mmol/L (3.6-5.0) 09/03/17 05:54 Chloride 91.1 mmol/L (98-107) L 09/03/17 05:54 Carbon Dioxide 33 mmol/L (22-30) H 09/03/17 05:54 Anion Gap 19 mmol/L 09/03/17 05:54 BUN 37 mg/dL (7-17) H 09/03/17 05:54 Creatinine 7.8 mg/dL (0.7-1.2) H 09/03/17 05:54 Estimated GFR 6 ml/min 09/03/17 05:54 BUN/Creatinine Ratio 5 % 09/03/17 05:54 Glucose 109 mg/dL (65-100) H 09/03/17 05:54 Calcium 8.7 mg/dL (8.4-10.2) 09/03/17 05:54 Troponin T 0.358 ng/mL (0.00-0.029) H* 09/03/17 05:54
[2017-09-03] MEDS: PROTONIX PO SCH (10:00)
[2017-09-03] MEDS: ZESTRIL PO SCH (10:00)
[2017-09-03] MEDS: COREG PO SCH ×2 (10:00→22:10)
[2017-09-03] MEDS: HALFPRIN EC PO SCH (10:00)
[2017-09-03] MEDS: IMDUR PO SCH (10:00)
--- NOTE | 2017-09-03 10:41 | Consultation ---
History of Present Illness Consult date: 09/03/17 Requesting physician: CHRIS MUNOZ Consult reason: chest pain History of present illness: The patient is a 67 YO female with a past medical history significant for CAD, s /p PCI (PCI of RCA in 08/2016 with subsequent subacute thrombus of the proximal RCA stent and balloon angioplasty with resolution of thrombus on 11/28/2016, s/p additional PCI of RCA on 03/22/2017 @ [place]), dilated CMP, s/p S AICD implantation at [place] on 05/17/2017, systolic HF, ESRD on HD, HTN, PVD, recurrent chest pain, paz's esophagitis and diverticulitis, and tobacco use. She is followed in our office by Dr. Ford. She is a rather poor historian. 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 She denies any n/v, palpitations, SOB, diaphoresis, dizziness or syncope. No exacerbating or relieving factors. On evaluation, pt's chest pain and epigastric pain is reproducible with palpation. Pt states that she is hungry and is ready to go home. LHC done 07/27/2017 at [place] showed nonobstructive CAD with severely reduced LVEF and elevated LVEDP (LM: LI, LAD: mild to moderate LI, LCx: LI, RCA: dominant, mild-moderate LI with patent previous RCA stent, LVEDP: 38 mmHg, LVEF 25 % with diffuse global hypokinesis). Echo done 07/27/2017 showed EF 20-25%, mildly dilated LA, moderate to severe TR , moderate MR, moderately reduced RV systolic function, RVSP 63mmHg, moderate pulm HTN. Past History Past Medical History: anemia, ESRD, hypertension, hyperlipidemia, other (NSVT, Paz's esophagitis) Social history: smoking Family history: no significant family history Medications and Allergies Allergies Allergy/AdvReac Type Severity Reaction Status Date / Time No Known Allergies Allergy Verified 08/25/17 22:07 Home Medications Medication Instructions Recorded Confirmed Last Taken Type Aspirin EC [Aspirin Enteric Coated 81 mg PO QDAY #30 tablet 06/27/17 09/02/17 Rx TAB] AtorvaSTATin [Lipitor] 80 mg PO QHS #30 tablet 06/27/17 09/02/17 09/02/17 Rx Carvedilol [Coreg] 12.5 mg PO BID #60 tablet 06/27/17 09/02/17 09/02/17 Rx Clopidogrel [Plavix] 75 mg PO QDAY #30 tablet 06/27/17 09/02/17 09/02/17 Rx ISOSORBIDE MONOnitrate [Imdur ER] 30 mg PO QDAY #30 tablet 06/27/17 09/02/17 Rx Lisinopril [Zestril TAB] 20 mg PO QDAY #30 tablet 06/27/17 09/02/17 09/02/17 Rx Dicyclomine [Bentyl] 10 mg PO TID PRN #30 capsule 08/03/17 09/02/17 09/02/17 Rx Pantoprazole [Protonix TAB] 40 mg PO QDAY #30 tablet 08/03/17 09/02/17 09/02/17 Rx Active Meds: Active Medications Acetaminophen (Tylenol) 650 mg PO Q4H PRN PRN Reason: Pain MILD(1-3)/Fever >100.5/SANCHEZ Aspirin (Halfprin Ec) 81 mg PO QDAY [facility] Atorvastatin Calcium (Lipitor) 80 mg PO QHS [facility] Last Admin: 09/02/17 22:35 Dose: 80 mg Bisacodyl (Dulcolax) 10 mg [place] QDAY PRN PRN Reason: Constipation unrelieved by [facility] Carvedilol (Coreg) 12.5 mg PO BID [facility] Last Admin: 09/02/17 22:35 Dose: 12.5 mg Clopidogrel Bisulfate (Plavix) 75 mg PO QDAY [facility] Dicyclomine HCl (Bentyl) 10 mg PO TID PRN PRN Reason: Pain Isosorbide Mononitrate (Imdur) 30 mg PO QDAY [facility] Lisinopril (Zestril) 20 mg PO QDAY [facility] Magnesium Hydroxide (Milk Of Magnesia) 30 ml PO Q4H PRN PRN Reason: Constipation Morphine Sulfate (Morphine) 1 mg IV Q4H PRN PRN Reason: Pain Last Admin: 09/03/17 10:12 Dose: 1 mg Ondansetron HCl (Zofran) 4 mg IV Q8H PRN PRN Reason: N/V unrelieved by Reglan Pantoprazole Sodium (Protonix) 40 mg PO QDAY ETHAN Sodium Chloride (Sodium Chloride Flush Syringe 10 Ml) 10 ml IV PRN PRN PRN Reason: LINE FLUSH Review of Systems All systems: negative Cardiovascular: chest pain Gastrointestinal: abdominal pain (epigastric pain) Physical Examination Vital Signs Resp 24 09/02/17 19:44 General appearance: no acute distress HEENT: Positive: PERRL, Normocephaly, Mucus Membranes Moist Neck: Positive: neck supple, trachea midline Cardiac: Positive: Reg Rate and Rhythm, S1/S2, Systolic Murmur Lungs: Positive: clear to auscultation Neuro: Positive: Grossly Intact, Cranial Nerve 2-12 Intact Abdomen: Positive: Soft, Tender (epigastric tenderness) Skin: Positive: Clear. Negative: Rash Musculoskeletal: No Fluid Collection, No Pain, Normal Range of Motion Extremities: Absent: edema Results 09/03/17 05:54 09/03/17 05:54 CBC 09/02/17 09/03/17 Range/Units 20:28 05:54 WBC 4.7 4.0 L (4.5-11.0) K/mm3 RBC 3.41 L 3.46 L (3.65-5.03) M/mm3 Hgb 10.0 L 10.1 (10.1-14.3) gm/dl Hct 30.7 31.4 (30.3-42.9) % Plt Count 282 289 (140-440) K/mm3 Lymph # 0.9 L 1.2 (1.2-5.4) K/mm3 [place] # 0.7 0.6 (0.0-0.8) K/mm3 Eos # 0.0 0.1 (0.0-0.4) K/mm3 Baso # 0.0 0.0 (0.0-0.1) K/mm3 Comprehensive Metabolic Panel 09/02/17 09/03/17 Range/Units 20:28 05:54 Sodium 140 139 (137-145) mmol/L Potassium 4.1 4.1 (3.6-5.0) mmol/L Chloride 91.3 L 91.1 L (98-107) mmol/L Carbon Dioxide 30 33 H (22-30) mmol/L BUN 32 H 37 H (7-17) mg/dL Creatinine 7.1 H 7.8 H (0.7-1.2) mg/dL Glucose 70 109 H (65-100) mg/dL Calcium 9.1 8.7 (8.4-10.2) mg/dL - Imaging and Cardiology Echo: report reviewed (07/27/2017 showed EF 20-25%, mildly dilated LA, moderate to severe TR, moderate MR, moderately reduced RV systolic function, RVSP 63mmHg , moderate pulm HTN. ) Cardiac cath: report reviewed (07/27/2017 at [place] showed nonobstructive CAD with severely reduced LVEF and elevated LVEDP (LM: LI, LAD: mild to moderate LI , LCx: LI, RCA: dominant, mild-moderate LI with patent previous RCA stent, LVEDP : 38 mmHg, LVEF 25 % with diffuse global hypokinesis). ) EKG: report reviewed, image reviewed EKG interpretations - Telemetry EKG Rhythm: Sinus Rhythm - EKG Sinus rhythms and dysrhythmias: sinus rhythm Ventricular dysrhythmias: ventricular premature com Chamber hypertrophy or enlargement: left ventricular hypertro Repolarization changes or abnormalities: early repolarization due to LVH Assessment and Plan Assessment: Chest pain, atypical - ECG with NAF; reproducible with palpation Elevated troponins - ECG with no acute ischemic changes; Chris flat and less than prior admissions CAD - PCI of RCA in 08/2016 with subsequent subacute thrombus of the proximal RCA stent and balloon angioplasty with resolution of thrombus on 11/28/2016, s/p additional PCI of RCA on 03/22/2017 @ [place] Dilated I/CMP - EF 20-25% S/p S AICD 04/2017 NSVT ESRD on HD Anemia Hypertension Hyperlipidemia PVD Paz's esophagitis and diverticulitis Tobacco use - cessation encouraged H/o noncompliance with medication regimen Plan: LHC done 07/27/2017 at [place] showed nonobstructive CAD with severely reduced LVEF and elevated LVEDP (LM: LI, LAD: mild to moderate LI, LCx: LI, RCA: dominant, mild-moderate LI with patent previous RCA stent, LVEDP: 38 mmHg, LVEF 25 % with diffuse global hypokinesis). Chris flat. Cont present cardiac management, including ASA, lipitor, coreg, plavix, lisinopril, imdur. No indication for repeat ischemic eval or echo at this time. Assessment and plan reviewed with pt at bedside. The patient has been seen in conjunction with Dr. JULIAN Still who agrees with the assessment and plan of care.
[2017-09-03] MEDS ORDERED: NACL 0.9% 100 ML IV PRN (15:36)
--- NOTE | 2017-09-03 16:25 | Consultation ---
History of Present Illness - Reason for Consult Consult date: 09/03/17 end stage renal disease Requesting physician: ELIZABETH ANTONIO - History of Present Illness 67 yo AAF with Hypertension complicated by ESRD on Hemodialysis on a MWF schedule at [facility] dialysis, with h/o multiple hospitalizations over the last year due to recurrent chest pain/abdominal pain presented again with similar symptoms. She has a history of coronary artery disease with Percutaneous coronary intervention and stent placement. She had right in-stent stenosis of the right coronary artery for which she had angioplasty done this summer. Patient had cardiac Catheterization again on 07/27/2017 at [place], nonobstructive coronary artery disease, LVEF 25%, patent RCA. We are consulted for management of her ESRD/HTN. Past History Past Medical History: anemia, ESRD, hypertension, hyperlipidemia, other (NSVT, Randolph's esophagitis) Social history: smoking Family history: no significant family history Medications and Allergies Allergies Allergy/AdvReac Type Severity Reaction Status Date / Time No Known Allergies Allergy Verified 08/25/17 22:07 Home Medications Medication Instructions Recorded Confirmed Last Taken Type Aspirin EC [Aspirin Enteric Coated 81 mg PO QDAY #30 tablet 06/27/17 09/02/17 Rx TAB] AtorvaSTATin [Lipitor] 80 mg PO QHS #30 tablet 06/27/17 09/02/17 09/02/17 Rx Carvedilol [Coreg] 12.5 mg PO BID #60 tablet 06/27/17 09/02/17 09/02/17 Rx Clopidogrel [Plavix] 75 mg PO QDAY #30 tablet 06/27/17 09/02/17 09/02/17 Rx ISOSORBIDE MONOnitrate [Imdur ER] 30 mg PO QDAY #30 tablet 06/27/17 09/02/17 Rx Lisinopril [Zestril TAB] 20 mg PO QDAY #30 tablet 06/27/17 09/02/17 09/02/17 Rx Dicyclomine [Bentyl] 10 mg PO TID PRN #30 capsule 08/03/17 09/02/17 09/02/17 Rx Pantoprazole [Protonix TAB] 40 mg PO QDAY #30 tablet 08/03/17 09/02/17 09/02/17 Rx Active Meds: Active Medications Acetaminophen (Tylenol) 650 mg PO Q4H PRN PRN Reason: Pain MILD(1-3)/Fever >100.5/SANCHEZ Aspirin (Halfprin Ec) 81 mg PO QDAY [facility] Atorvastatin Calcium (Lipitor) 80 mg PO QHS [facility] Last Admin: 09/02/17 22:35 Dose: 80 mg Bisacodyl (Dulcolax) 10 mg [place] QDAY PRN PRN Reason: Constipation unrelieved by MOM Carvedilol (Coreg) 12.5 mg PO BID [facility] Last Admin: 09/02/17 22:35 Dose: 12.5 mg Clopidogrel Bisulfate (Plavix) 75 mg PO QDAY [facility] Dicyclomine HCl (Bentyl) 10 mg PO TID PRN PRN Reason: Pain Sodium Chloride (Nacl 0.9%) 100 mls @ 999 mls/hr IV JOAN PRN PRN Reason: Hypotension Isosorbide Mononitrate (Imdur) 30 mg PO QDAY [facility] Lisinopril (Zestril) 20 mg PO QDAY [facility] Magnesium Hydroxide (Milk Of Magnesia) 30 ml PO Q4H PRN PRN Reason: Constipation Morphine Sulfate (Morphine) 1 mg IV Q4H PRN PRN Reason: Pain Last Admin: 09/03/17 10:12 Dose: 1 mg Ondansetron HCl (Zofran) 4 mg IV Q8H PRN PRN Reason: N/V unrelieved by Reglan Pantoprazole Sodium (Protonix) 40 mg PO QDAY [facility] Sodium Chloride (Sodium Chloride Flush Syringe 10 Ml) 10 ml IV PRN PRN PRN Reason: LINE FLUSH Review of Systems All systems: negative Cardiovascular: chest pain, dyspnea on exertion Exam - Vital Signs Vital signs: Vital Signs Resp 24 09/02/17 19:44 - General Appearance General appearance: appears stated age, chronically ill, frail EENT: ATNC, PERRL, mucous membranes moist Neck: Present: neck supple Respiratory: Clear to Ascultation Heart: regular, S1S2 Gastrointestinal: Present: normoactive bowel sounds Integumentary: no rash, other (no edema ) Neurologic: no focal deficit, alert and oriented x3, strength 5/5, CN 3-12 intact Psychiatric: mood/affect appropriate, cooperative Results - Lab Results 09/03/17 05:54 09/03/17 05:54 Most recent lab results Calcium 8.7 mg/dL (8.4-10.2) 09/03/17 05:54 Assessment and Plan - Patient Problems (1) ESRD (end stage renal disease) on dialysis Current Visit: Yes Status: Acute Plan to address problem: will arrange HD on MWF schedule (2) Chest pain Current Visit: Yes Status: Acute Plan to address problem: follow cardiology recommendations (3) Anemia in end-stage renal disease Current Visit: No Status: Acute Plan to address problem: Hb at target at 10, no EPO needed at present (4) CAD (coronary artery disease) Current Visit: No Status: Chronic Qualifiers: Coronary Disease-Associated Artery/Lesion type: [place] artery [place] vs. transplanted heart: [place] heart Associated angina: without angina Qualified Code(s): I25.10 - Atherosclerotic heart disease of [place] coronary artery without angina pectoris Plan to address problem: cont ASA,plavix, statin, BB. follow cardiology recommendations
[2017-09-03] MEDS: PLAVIX PO SCH (16:48)
[2017-09-03] MEDS ORDERED: NACL 0.9 (PRIMING MACHINE ONLY DIALYSIS) MC ONE (21:13)
[2017-09-04] MEDS: MORPHINE IV PRN ×3 (04:44→13:32)
--- NOTE | 2017-09-04 08:57 | Progress Note ---
Assessment and Plan Assessment: Chest pain, atypical - currently resolved; ECG with NAF; reproducible with palpation Elevated troponins - ECG with no acute ischemic changes; Chris flat and less than prior admissions CAD - PCI of RCA in 08/2016 with subsequent subacute thrombus of the proximal RCA stent and balloon angioplasty with resolution of thrombus on 11/28/2016, s/p additional PCI of RCA on 03/22/2017 @ [place] Dilated I/CMP - EF 20-25% S/p S AICD 04/2017 NSVT ESRD on HD Anemia Hypertension Hyperlipidemia PVD Randolph's esophagitis and diverticulitis Tobacco use - cessation encouraged H/o noncompliance with medication regimen Plan: LHC done 07/27/2017 at [place] showed nonobstructive CAD with severely reduced LVEF and elevated LVEDP (LM: LI, LAD: mild to moderate LI, LCx: LI, RCA: dominant, mild-moderate LI with patent previous RCA stent, LVEDP: 38 mmHg, LVEF 25 % with diffuse global hypokinesis). Chris flat. Cont present cardiac management, including ASA, lipitor, coreg, plavix, lisinopril, imdur. No indication for repeat ischemic eval or echo at this time. Currently stable cardiac status. Chest pain resolved. Pt may discharge home from cardiology standpoint. Recommend follow up in our office with Amanda Spicer NP, within 1-2 weeks of hospital discharge ([phone]). Assessment and plan reviewed with pt at bedside. The patient has been seen in conjunction with Dr. Khadra Still who agrees with the assessment and plan of care. Subjective Date of service: 09/04/17 Principal diagnosis: chest pain Interval history: pt resting in bed, states chest pain resolved. still c/o epigastric pain. vss. Objective Last Vital Signs Temp 98.1 F 09/04/17 07:30 Pulse 71 09/04/17 07:30 Resp 18 09/04/17 07:30 BP 127/68 09/04/17 07:30 Pulse Ox 97 09/04/17 07:30 - Physical Examination General: No Apparent Distress HEENT: Positive: PERRL, Normocephaly, Mucus Membranes Moist Neck: Positive: neck supple Cardiac: Positive: Reg Rate and Rhythm, S1/S2, Systolic Murmur Lungs: Positive: clear to auscultation Neuro: Positive: Grossly Intact, Cranial Nerve 2-12 Intact Abdomen: Positive: Soft, Tender (epigastric tenderness) Skin: Positive: Clear. Negative: Rash Musculoskeletal: No Fluid Collection, No Pain, Normal Range of Motion Extremities: Absent: edema - Imaging and Cardiology EKG: report reviewed, image reviewed Echo: report reviewed (07/27/2017 showed EF 20-25%, mildly dilated LA, moderate to severe TR, moderate MR, moderately reduced RV systolic function, RVSP 63mmHg , moderate pulm HTN. ) Cardiac cath: report reviewed (07/27/2017 at [place] showed nonobstructive CAD with severely reduced LVEF and elevated LVEDP (LM: LI, LAD: mild to moderate LI , LCx: LI, RCA: dominant, mild-moderate LI with patent previous RCA stent, LVEDP : 38 mmHg, LVEF 25 % with diffuse global hypokinesis). ) - EKG Sinus rhythms and dysrhythmias: sinus rhythm Ventricular dysrhythmias: ventricular premature com Chamber hypertrophy or enlargement: left ventricular hypertro Repolarization changes or abnormalities: early repolarization due to LVH
[2017-09-04] MEDS ORDERED: HEPARIN SUB-Q SCH (10:00)
[2017-09-04] MEDS: HALFPRIN EC PO SCH (10:23)
[2017-09-04] MEDS: COREG PO SCH (10:23)
[2017-09-04] MEDS: PLAVIX PO SCH (10:24)
[2017-09-04] MEDS: IMDUR PO SCH (10:24)
[2017-09-04] MEDS: PROTONIX PO SCH (10:24)
[2017-09-04] MEDS: ZESTRIL PO SCH (10:24)
--- NOTE | 2017-09-04 10:53 | Progress Note ---
Assessment and Plan - Patient Problems (1) ESRD (end stage renal disease) on dialysis Current Visit: Yes Status: Acute Plan to address problem: cont HD on MWF schedule (2) Chest pain Current Visit: Yes Status: Acute Plan to address problem: follow cardiology recommendations (3) Anemia in end-stage renal disease Current Visit: No Status: Acute Plan to address problem: Hb at target at 10, no EPO needed at present (4) CAD (coronary artery disease) Current Visit: No Status: Chronic Qualifiers: Coronary Disease-Associated Artery/Lesion type: [place] artery [place] vs. transplanted heart: [place] heart Associated angina: without angina Qualified Code(s): I25.10 - Atherosclerotic heart disease of [place] coronary artery without angina pectoris Plan to address problem: cont ASA,plavix, statin, BB. follow cardiology recommendations Subjective Date of service: 09/04/17 Principal diagnosis: chest pain Interval history: pt awake, alert, no acute chest pain Objective - Vital Signs Vital signs: Vital Signs - 12hr 09/04/17 09/04/17 09/04/17 04:31 04:36 07:30 Temperature 98.2 F 98.0 F 98.1 F Pulse Rate 68 71 Respiratory 18 18 18 Rate Blood Pressure 121/55 122/65 127/68 O2 Sat by Pulse 91 97 97 Oximetry - General Appearance General appearance: well-developed, well-nourished, appears stated age EENT: ATNC, PERRL, mucous membranes moist Neck: no JVD Respiratory: Present: Clear to Ascultation Cardiology: regular, S1S2 Gastrointestinal: normoactive bowel sounds Integumentary: no rash, other (no edema ) Neurologic: no focal deficit, alert and oriented x3, strength 5/5, CN 3-12 intact Psychiatric: mood/affect appropriate, cooperative - Lab 09/03/17 05:54 09/03/17 05:54 Most recent lab results Calcium 8.7 mg/dL (8.4-10.2) 09/03/17 05:54
--- NOTE | 2017-09-04 14:13 | Discharge Summary ---
Providers - Providers Date of Admission: 09/02/17 21:55 Attending physician: CON WARNER 09/02/17 Consult to Cardiac Rehabilitation [CONS] Routine Reason For Exam: Phase I 09/02/17 21:55 Consult to Physician [CONS] Routine Consulting Provider: CORNELIA MCLEAN Reason For Exam: cp Place consult to:: dr. mclean Notified:: pa Was contact made?: Yes If yes, spoke with:: margaret Time called:: 09:50 Comment:: margaret is on floor making rounds 09/02/17 21:56 Consult to Cardiology [CONS] Routine Consulting Provider: CORNELIA MCLEAN Reason For Exam: cp 09/03/17 12:00 Consult to Physician [CONS] Urgent Consulting Provider: NOAH UREÑA Reason For Exam: ESRD on dialysis Notified:: yes Primary care physician: CON VALDES Hospitalization Condition: Fair Disposition: DC-30 STILL A PATIENT Exam - Constitutional Vitals: Temp Pulse Resp BP Pulse Ox 98.0 F 71 16 109/40 97 09/04/17 12:14 09/04/17 07:30 09/04/17 12:14 09/04/17 12:14 09/04/17 07:30 Plan Activity: fall precautions Weight Bearing Status: Weight Bear as Tolerated Diet: low fat, low cholesterol, low salt Follow up with: CON VALDES MD [Primary Care Provider] - 3-5 Days Prescriptions: Pantoprazole [Protonix TAB] 40 mg PO BID #60 tablet
[2017-09-04 15:00] VITALS: BP 110/66
== END 2017-09-04 16:02 | disposition home or self-care (01) | DRG 291 ==
LOC: ED 19:34 → EEVIPCON 21:55 → 3A 21:55
PROVIDERS: ADMIT Hospitalist; ATTEND Internal Medicine
PROC: 5A1D70Z Performance of Urinary Filtration, Intermittent, Less than 6 Hours Per Day (ICD-10-PCS; principal; 2017-09-03)
DX: I13.2 Hypertensive heart and chronic kidney disease with heart failure and with stage 5 chronic kidney disease, or end stage renal disease (principal); N18.6 End stage renal disease; K57.92 Diverticulitis of intestine, part unspecified, without perforation or abscess without bleeding; K22.70 Barrett's esophagus without dysplasia; I42.0 Dilated cardiomyopathy; I25.5 Ischemic cardiomyopathy; K21.9 Gastro-esophageal reflux disease without esophagitis; M19.90 Unspecified osteoarthritis, unspecified site; D63.1 Anemia in chronic kidney disease; M10.9 Gout, unspecified; I73.9 Peripheral vascular disease, unspecified; E78.5 Hyperlipidemia, unspecified; I25.10 Atherosclerotic heart disease of native coronary artery without angina pectoris; I50.9 Heart failure, unspecified; Z90.49 Acquired absence of other specified parts of digestive tract; Z87.891 Personal history of nicotine dependence; Z98.51 Tubal ligation status; Z95.810 Presence of automatic (implantable) cardiac defibrillator; Z91.14 Patient's other noncompliance with medication regimen; Z99.2 Dependence on renal dialysis; Z79.899 Other long term (current) drug therapy
CPT/HCPCS: 36415; 71010; 80048; 84484; 85025; 93005; 93010; 96374; 96375; A9270-GY; J1644; J2270; J2405; J3010; J7030

== ENCOUNTER 2017-09-06 20:01 | Emergency (ER) | payer MEDICARE ==
[2017-09-06 20:35] LABS: Basophils % (Auto) 0.8 % (0.0-1.8); Eosinophils % (Auto) 0.9 % (0.0-4.3); Hematocrit 35.2 % (30.3-42.9); Hemoglobin 11.3 gm/dl (10.1-14.3); Mean Corpuscular HGB Conc 32 % (30-34); Mean Corpuscular Hemoglobin 29 pg (28-32); Mean Corpuscular Volume 91 fl (79-97); Platelet Count 310 K/mm3 (140-440); Red Blood Count 3.87 M/mm3 (3.65-5.03); White Blood Count 3.8 K/mm3 (4.5-11.0)
[2017-09-06 20:37] LABS: Red Cell Distribution Width 20.6 % (13.2-15.2)
[2017-09-06 20:55] LABS: Calcium 9.6 mg/dL (8.4-10.2); Chloride 95.9 mmol/L (98-107)
--- NOTE | 2017-09-06 23:58 | XRay Report ---
FINAL REPORT PROCEDURE: XR CHEST 1V AP TECHNIQUE: Chest radiograph anteroposterior view. CPT 68392 HISTORY: CHEST PAIN COMPARISON: 09/02/2017 FINDINGS: Heart: Heart is enlarged Mediastinum/Vessels: Normal. Lungs/Pleural space: Lungs are clear and expanded. There are mild fibrotic changes. There are no acute infiltrates. There are no effusions or pneumothoraces.. Bony thorax: No acute osseous abnormality. Life support devices: None. IMPRESSION: No acute cardiopulmonary abnormality.
--- NOTE | 2017-09-07 00:04 | Emergency Department Report ---
ED Chest Pain HPI - General Chief Complaint: Chest Pain Stated Complaint: ABD PAIN Time Seen by Provider: 09/06/17 23:19 Source: patient Mode of arrival: Ambulatory Limitations: No Limitations - History of Present Illness Initial Comments: 67 YO FEMALE WITH RECURRENT CHEST AND ABDOMINAL PAIN. HER CHEST PAIN IS IN THE LEFT CHEST AND NOT ASSOCIATED WITH ANY OTHER PAIN BUT LOWER ABDOMINAL PAIN. SHE DENIES NAUSEA,VOMITING, OR FEVER,CHILLS. SHE WAS HER MANY TIMES THIS MONTH FOR THE SEAM AND HAS HAD SOME ADMISSION BUT NO CARDIAC WORKUP BECAUSE SHE HAD AN NEGATIVE LEXISCAN ON 05/01/17 AND [facility]-CORONARY ANGIOGRAPHY AT [facility] 08/06/17 WHICH SHOWED NONOBSTUCTIVE HEART DISEASE PER DR GIDEON BENOIT. SHE WAS SEEN HER08/20 ; 08/25 AND CARDIOLOGY DID NOT FEEL A NEED FOR INTERVENTION. PT C/O ARE CHRONIC IN NATURE. MD Complaint: chest pain -: days(s) (2 BUT ADMITS THAT IT IS THE SAME PAIN FROM PRIOR VISIT) Onset: during rest Pain Location: left chest Pain Radiation: none Severity scale (0 -10): 6 Quality: aching Consistency: constant Improves With: nothing Worsens With: nothing re: denies: nausea, vomting, dyspnea Treatments Prior to Arrival: none Aspirin use within the Past 7 Days: (0) No - Related Data On Oral Contraceptives: No Previous Rx's Medication Instructions Recorded Last Taken Type Aspirin EC [Aspirin Enteric Coated 81 mg PO QDAY #30 tablet 06/27/17 09/02/17 Rx TAB] AtorvaSTATin [Lipitor] 80 mg PO QHS #30 tablet 06/27/17 09/02/17 Rx Carvedilol [Coreg] 12.5 mg PO BID #60 tablet 06/27/17 09/02/17 Rx Clopidogrel [Plavix] 75 mg PO QDAY #30 tablet 06/27/17 09/02/17 Rx ISOSORBIDE MONOnitrate [Imdur ER] 30 mg PO QDAY #30 tablet 06/27/17 09/02/17 Rx Lisinopril [Zestril TAB] 20 mg PO QDAY #30 tablet 06/27/17 09/02/17 Rx Dicyclomine [Bentyl] 10 mg PO TID PRN #30 capsule 08/03/17 09/02/17 Rx Pantoprazole [Protonix TAB] 20 mg PO BID #20 tablet 09/07/17 Unknown Rx oxyCODONE /ACETAMINOPHEN [Percocet 1 tab PO Q6HR PRN #14 tablet 09/07/17 Unknown Rx 5/325] Allergies Allergy/AdvReac Type Severity Reaction Status Date / Time No Known Allergies Allergy Verified 08/25/17 22:07 Heart Score - HEART Score History: Slightly suspicious EKG: Non-specific (T WAVE INVERSIONI,II,III,AVL,AVF -SAME PRIOR EKGS) Age: > 65 Risk factors: > 3 risk factors or hx of atherosclerotic disease Troponin: 1-3x normal limit HEART Score: 6 ED Review of Systems ROS: Stated complaint: ABD PAIN Other details as noted in HPI Constitutional: denies: chills, fever Eyes: denies: eye pain, eye discharge, vision change ENT: denies: ear pain, throat pain Respiratory: denies: cough, shortness of breath, wheezing Cardiovascular: denies: palpitations Endocrine: no symptoms reported Gastrointestinal: abdominal pain. denies: nausea, diarrhea Genitourinary: denies: urgency, dysuria, discharge Musculoskeletal: denies: back pain, joint swelling, arthralgia Skin: denies: rash, lesions Neurological: denies: headache, weakness, paresthesias Psychiatric: denies: anxiety, depression Hematological/Lymphatic: denies: easy bleeding, easy bruising ED Past Medical Hx - Past Medical History Hx Hypertension: Yes Hx CVA: Yes (x 2) Hx Heart Attack/AMI: No (chronic chest pain, multiple visits over past year) Hx Congestive Heart Failure: Yes Hx Diabetes: No Hx GERD: Yes Hx Liver Disease: Yes (LESION) Hx Renal Disease: Yes (ESRD/dialysis M, W, F) Hx Sickle Cell Disease: No Hx Arthritis: Yes Hx Asthma: No Hx COPD: No Hx HIV: No Additional medical history: enlarged heart, gout, [facility] CORONARY ANGIOGRAPHY [facility] 08/06/2017-NONOBSTRUCTING HEART PER DR GIDEON BENOIT - Surgical History Hx Coronary Stent: Yes Hx Open Heart Surgery: No Hx Cholecystectomy: No Hx Appendectomy: Yes Hx Breast Surgery: No Additional Surgical History: tubal ligation, vas cath. LUE fistula. cardiac workup includes a stress test on 12/21/2016 that was unremarkable. Patient status post PCI of RCA with subsequent subacute thrombus of the proximal RCA stent and angioplasty with resolution of thrombosis on November 2016. AICD placement Aug 2017. PCI 03/22/17 of RCA. 05/01/17 neg Lexiscan stress - Social History Smoking Status: Never Smoker Substance Use Type: None - Medications Home Medications: Home Medications Medication Instructions Recorded Confirmed Last Taken Type Aspirin EC [Aspirin Enteric Coated 81 mg PO QDAY #30 tablet 06/27/17 09/02/17 Rx TAB] AtorvaSTATin [Lipitor] 80 mg PO QHS #30 tablet 06/27/17 09/02/17 09/02/17 Rx Carvedilol [Coreg] 12.5 mg PO BID #60 tablet 06/27/17 09/02/17 09/02/17 Rx Clopidogrel [Plavix] 75 mg PO QDAY #30 tablet 06/27/17 09/02/17 09/02/17 Rx ISOSORBIDE MONOnitrate [Imdur ER] 30 mg PO QDAY #30 tablet 06/27/17 09/02/17 Rx Lisinopril [Zestril TAB] 20 mg PO QDAY #30 tablet 06/27/17 09/02/17 09/02/17 Rx Dicyclomine [Bentyl] 10 mg PO TID PRN #30 capsule 08/03/17 09/02/17 09/02/17 Rx Pantoprazole [Protonix TAB] 20 mg PO BID #20 tablet 09/07/17 Unknown Rx oxyCODONE /ACETAMINOPHEN [Percocet 1 tab PO Q6HR PRN #14 tablet 09/07/17 Unknown Rx 5/325] ED Physical Exam - General Limitations: No Limitations General appearance: alert, in no apparent distress - Head Head exam: Present: atraumatic, normocephalic - Eye Eye exam: Present: normal appearance, EOMI - ENT ENT exam: Present: mucous membranes moist - Neck Neck exam: Present: normal inspection - Respiratory Respiratory exam: Present: normal lung sounds bilaterally. Absent: respiratory distress, chest wall tenderness (AICD) - Cardiovascular Cardiovascular Exam: Present: regular rate, normal rhythm. Absent: systolic murmur, diastolic murmur, rubs, gallop - GI/Abdominal GI/Abdominal exam: Present: soft, normal bowel sounds - Extremities Exam Extremities exam: Present: normal inspection - Expanded Upper Extremity Exam Left Upper Arm exam: Present: other (AV FISTULA-PATENT) - Back Exam Back exam: Present: normal inspection, full ROM - Neurological Exam Neurological exam: Present: alert, oriented X3, CN II-XII intact - Psychiatric Psychiatric exam: Present: normal affect, normal mood - Skin Skin exam: Present: warm, dry, intact, normal color. Absent: rash ED Course Vital Signs 09/06/17 09/06/17 20:17 22:25 Temperature 99.1 F 98.6 F Pulse Rate 96 H 87 Respiratory 16 24 Rate Blood Pressure 136/65 Blood Pressure 158/72 [Right] O2 Sat by Pulse 99 100 Oximetry JACQUES score - Jacques Score Age > 65: (1) Yes Aspirin use within the Past 7 Days: (1) Yes 3 or more CAD Risk Factors: (1) Yes 2 or more Angina events in past 24 hrs: (0) No Known CAD with more than 50% Stenosis: (1) Yes Elevated Cardiac Markers: (1) Yes ST Deviation Greater than 0.5mm: (0) No JACQUES Score: 5 ED Medical Decision Making - Lab Data Result diagrams: 09/06/17 20:27 09/06/17 20:27 - EKG Data -: EKG Interpreted by Me EKG shows normal: sinus rhythm, axis, intervals, QRS complexes - EKG Data Interpretation: nonspecific ST-T wave annamarie (TEAVE INVERSION I,II,III,AVL,AVFVI-V2 --THESE ARE NOT NEW ,FOUND ON PRIOR EKGS) 09/07/17 00:13 EKG #2;HR 89, VENTRICULAR TRIGEMINY, LVH - Radiology Data Radiology results: report reviewed (CXR;NEGTIVE ABD 2V;NEGATIVE), image reviewed (CXR;CARDIOMEGALY) - Medical Decision Making HER TROPONIS IS ELEVATED BECAUSE OF HER CHRONIC RENAL DISEASE BUT IT IS ACTUALLY AN IMPROVEMENT OVE RHER PAST TROPONIN LEVELS IN THE EMERGENCY DEPT. SINCE SHE HAS STABLE NONOBSTRUCTING CRDIAC LESIONS I WILL D/C HER HOME WITH FOLLOW UP WITH ERHE DOCTOR. HER ABDOMINAL PAIN IS CHRONIC ALSO AND THUS I AM REFERRING HE RTO EHR DOCTOR WHO SHOULD CONSIDER ENDOSCOPY AND COLONOSCOPY. I WILL REFER HER TO GI - Differential Diagnosis [place],ANGINA,GERD,GASTRITIS,ESOPHAGEAL SPASMS Critical care attestation.: If time is entered above; I have spent that time in minutes in the direct care of this critically ill patient, excluding procedure time. ED Disposition Clinical Impression: ESRD needing dialysis, Chronic abdominal pain, Ventricular trigeminy, Cardiomegaly, Tobacco abuse disorder Chest pain Qualifiers: Chest pain type: unspecified Qualified Code(s): R07.9 - Chest pain, unspecified Disposition: TO HOME OR SELFCARE Is pt being admited?: No Does the pt Need Aspirin: No Condition: Stable Instructions: Angina (ED), Abdominal Pain (ED) Additional Instructions: PLEASE FOLLOW UP WITH YOUR HERAT DOCTOR AND YOUR REGULAR DOCTOR WITH 2 DAYS. PLEASE [id number] IT THE PAIN COME BACK, GETS WORSE OR YOUR START TO VOMIT, HAVE FEVER, CHILLS OR ANY CONCERNS. Prescriptions: oxyCODONE /ACETAMINOPHEN [Percocet 5/325] 1 tab PO Q6HR PRN #14 tablet PRN Reason: Pain Pantoprazole [Protonix TAB] 20 mg PO BID #20 tablet Referrals: CON VALDES MD [Primary Care Provider] - 3-5 Days APOLINAR PEPPER MD [Staff Physician] - 3-5 Days LISA VALVERDE MD [Staff Physician] - 3-5 Days PALAK MONTOYA MD [Staff Physician] - 3-5 Days HEAVEN EDDY MD [Staff Physician] - 3-5 Days Time of Disposition: 01:37
[2017-09-07] MEDS ORDERED: PERCOCET 5/325 PO ONE (00:23)
[2017-09-07] MEDS ORDERED: TORADOL IM ONE (00:23)
--- NOTE | 2017-09-07 00:50 | XRay Report ---
FINAL REPORT PROCEDURE: XR ABDOMEN 2V TECHNIQUE: AP supine portable radiograph of the abdomen was obtained at 09/07/2017 00:06 (EST) . HISTORY: ABDOMINAL PIAN COMPARISON: No prior studies are available for comparison. FINDINGS: Bowel gas pattern: Nonobstructive. Masses or calcifications: None. Bony structures: There are degenerative changes of the lumbar spine and hips.. Other: There is dense calcified atherosclerosis of the abdominal aorta and branches.. IMPRESSION: There is no mechanical bowel obstruction, fecal impaction, bowel wall thickening or free air.
[2017-09-07 02:38] VITALS: BP 153/70
== END 2017-09-07 07:11 | disposition home or self-care (01) ==
LOC: ED 20:01
DX: I51.7 Cardiomegaly (principal); R10.30 Lower abdominal pain, unspecified; R00.8 Other abnormalities of heart beat; G89.29 Other chronic pain; N18.6 End stage renal disease; R07.9 Chest pain, unspecified; I12.0 Hypertensive chronic kidney disease with stage 5 chronic kidney disease or end stage renal disease; E11.22 Type 2 diabetes mellitus with diabetic chronic kidney disease; Z86.73 Personal history of transient ischemic attack (TIA), and cerebral infarction without residual deficits; M19.90 Unspecified osteoarthritis, unspecified site; Z79.82 Long term (current) use of aspirin
CPT/HCPCS: 36415; 71010; 74020; 80048; 80061; 83880; 84484; 85025; 93005; 93010; 96372; 99284; J1885

== ENCOUNTER 2017-09-12 11:14 | Inpatient (IN) | payer MEDICARE ==
[2017-09-12] MEDS ORDERED: MORPHINE IV ONE (12:39)
[2017-09-12 13:33] LABS: Basophils # (Auto) 0.1 K/mm3 (0.0-0.1); Eosinophils # (Auto) 0.1 K/mm3 (0.0-0.4); Eosinophils % (Auto) 1.5 % (0.0-4.3); Hematocrit 31.9 % (30.3-42.9); Hemoglobin 9.7 gm/dl (10.1-14.3); Lymphocytes # (Auto) 1.1 K/mm3 (1.2-5.4); Lymphocytes % (Auto) 17.4 % (13.4-35.0); Mean Corpuscular HGB Conc 31 % (30-34); Mean Corpuscular Hemoglobin 29 pg (28-32); Mean Corpuscular Volume 95 fl (79-97); Monocytes # (Auto) 0.6 K/mm3 (0.0-0.8); Monocytes % (Auto) 10.6 % (0.0-7.3); Platelet Count 199 K/mm3 (140-440); Red Blood Count 3.36 M/mm3 (3.65-5.03)
[2017-09-12 13:34] LABS: Red Cell Distribution Width 20.2 % (13.2-15.2)
[2017-09-12 13:39] LABS: Calcium 9.6 mg/dL (8.4-10.2)
--- NOTE | 2017-09-12 13:54 | XRay Report ---
ABDOMINAL SERIES: History: Chest pain, abdominal pain. AP view of the chest demonstrates moderate cardiomegaly and mild pulmonary venous congestion. Pacemaker device is unchanged. The lungs are clear. There is no evidence of free air beneath the diaphragms. The gas pattern within the abdomen is unremarkable. There is no evidence of bowel dilatation, significant air-fluid levels, or masses. Organ shadows are unremarkable. IMPRESSION: Cardiomegaly and pulmonary venous congestion. Unremarkable abdomen.
[2017-09-12 13:55] LABS: Alanine Aminotransferase 16 units/L (7-56); Albumin 3.1 g/dL (3.9-5)
[2017-09-12 13:57] LABS: Bilirubin,Direct < 0.2 mg/dL (0-0.2)
--- NOTE | 2017-09-12 14:16 | Emergency Department Report ---
HPI - General Chief Complaint: Chest Pain Time Seen by Provider: 09/12/17 12:09 - HPI HPI: This is a 67 year-old female who presents to the emergency department by EMS from her dialysis center with a complaint of chest pain and abdominal pain. When she told the facility that she was having this discomfort they called the ambulance and she did not receive any dialysis. She normally gets it on Sunday/Sunday/Sunday and says she didn't get it last Sunday. She says that her relief captain is Dr. Reyes. She was given a sublingual nitroglycerin and a full dose aspirin in route without much relief. She has a past medical history of arthritis, CHF, CVA, hypertension, cardiomegaly. The patient had a left-sided heart cath at [facility] on 08/06/17 but did not show any obstructing lesions. She is followed by [facility] cardiology. ED Past Medical Hx - Past Medical History Previous Medical History?: Yes Hx Hypertension: Yes Hx CVA: Yes (x 2) Hx Heart Attack/AMI: No (chronic chest pain, multiple visits over past year) Hx Congestive Heart Failure: Yes Hx Diabetes: No Hx GERD: Yes Hx Liver Disease: Yes (LESION) Hx Renal Disease: Yes (ESRD/dialysis M, W, F) Hx Sickle Cell Disease: No Hx Arthritis: Yes Hx Asthma: No Hx COPD: No Hx HIV: No Additional medical history: enlarged heart, gout, [facility] CORONARY ANGIOGRAPHY [place] 08/06/2017-NONOBSTRUCTING HEART PER DR GIDEON BENOIT - Surgical History Hx Coronary Stent: Yes Hx Open Heart Surgery: No Hx Cholecystectomy: No Hx Appendectomy: Yes Hx Breast Surgery: No Additional Surgical History: tubal ligation, vas cath. LUE fistula. cardiac workup includes a stress test on 12/21/2016 that was unremarkable. Patient status post PCI of RCA with subsequent subacute thrombus of the proximal RCA stent and angioplasty with resolution of thrombosis on November 2016. AICD placement Aug 2017. PCI 03/22/17 of RCA. 05/01/17 neg Lexiscan stress - Social History Smoking Status: Current Every Day Smoker Substance Use Type: None - Medications Home Medications: Home Medications Medication Instructions Recorded Confirmed Last Taken Type Aspirin EC [Aspirin Enteric Coated 81 mg PO QDAY #30 tablet 06/27/17 09/12/17 Rx TAB] AtorvaSTATin [Lipitor] 80 mg PO QHS #30 tablet 06/27/17 09/12/17 09/02/17 Rx Carvedilol [Coreg] 12.5 mg PO BID #60 tablet 06/27/17 09/12/17 09/11/17 Rx Clopidogrel [Plavix] 75 mg PO QDAY #30 tablet 06/27/17 09/12/17 09/11/17 Rx ISOSORBIDE MONOnitrate [Imdur ER] 30 mg PO QDAY #30 tablet 06/27/17 09/12/17 Rx Lisinopril [Zestril TAB] 20 mg PO QDAY #30 tablet 06/27/17 09/12/17 09/12/17 Rx Dicyclomine [Bentyl] 10 mg PO TID PRN #30 capsule 08/03/17 09/12/17 09/02/17 Rx Pantoprazole [Protonix TAB] 20 mg PO BID #20 tablet 09/07/17 09/12/17 09/11/17 Rx oxyCODONE /ACETAMINOPHEN [Percocet 1 tab PO Q6HR PRN #14 tablet 09/07/1709/12/17 Rx 5/325] ED Review of Systems ROS: Stated complaint: CHEST PAIN/ABD PAIN Other details as noted in HPI Comment: All other systems reviewed and negative Constitutional: denies: chills, fever Eyes: denies: eye pain, eye discharge, vision change ENT: denies: ear pain, throat pain Respiratory: denies: cough, shortness of breath Cardiovascular: chest pain. denies: palpitations Gastrointestinal: abdominal pain. denies: vomiting Genitourinary: denies: urgency, dysuria, discharge Musculoskeletal: denies: back pain, joint swelling, arthralgia Skin: denies: rash, lesions Neurological: denies: headache, weakness, paresthesias Physical Exam - Physical Exam Vital Signs: Vital Signs 09/12/17 09/12/17 09/12/17 11:28 11:31 11:47 Temperature 98.3 F Pulse Rate 79 88 88 Respiratory 13 15 Rate Blood Pressure 154/79 O2 Sat by Pulse 100 Oximetry 09/12/17 09/12/17 09/12/17 12:00 12:02 12:30 Temperature Pulse Rate 90 92 H Respiratory 32 H 15 Rate Blood Pressure 152/80 164/80 O2 Sat by Pulse 95 100 96 Oximetry 09/12/17 09/12/17 13:00 13:30 Temperature Pulse Rate 91 H 90 Respiratory 24 22 Rate Blood Pressure 144/68 145/63 O2 Sat by Pulse 93 92 Oximetry Physical Exam: GENERAL: The patient is well-developed well-nourished. HENT: Normocephalic. Atraumatic. Patient has moist mucous membranes. EYES: Extraocular motions are intact. Pupils equal reactive to light bilaterally. NECK: Supple. Trachea is midline. CHEST/LUNGS: Coarse breath sounds without chest. No tachypnea or accessory muscle use. There is no respiratory distress noted. HEART/CARDIOVASCULAR: Regular. There is no tachycardia. There is no murmur. ABDOMEN: Abdomen is soft. There is some mild generalized tenderness to palpation.. Patient has normal bowel sounds. There is no abdominal distention. SKIN: Skin is warm and dry. NEURO: The patient is awake, alert, and oriented. The patient is cooperative. The patient has no focal neurologic deficits. The patient has normal speech. MUSCULOSKELETAL: There is no tenderness or deformity. There is no limitation range of motion. There is no evidence of acute injury. ED Course Vital Signs 09/12/17 09/12/17 09/12/17 11:28 11:31 11:47 Temperature 98.3 F Pulse Rate 79 88 88 Respiratory 13 15 Rate Blood Pressure 154/79 O2 Sat by Pulse 100 Oximetry 09/12/17 09/12/17 09/12/17 12:00 12:02 12:30 Temperature Pulse Rate 90 92 H Respiratory 32 H 15 Rate Blood Pressure 152/80 164/80 O2 Sat by Pulse 95 100 96 Oximetry 09/12/17 09/12/17 13:00 13:30 Temperature Pulse Rate 91 H 90 Respiratory 24 22 Rate Blood Pressure 144/68 145/63 O2 Sat by Pulse 93 92 Oximetry - Consultations Consultation #1: I spoke to the nephrology service of this patient, Dr. Rashid, who says that he would like to get the patient dialyzed today. 09/12/17 14:48 Consultation #2: I spoke to the PA for [facility] cardiology, Yady Lazaro, who says that they will take a look at the patient regarding her chest pain 09/12/17 14:50 ED Medical Decision Making - Lab Data Result diagrams: 09/12/17 13:09 09/12/17 13:09 - EKG Data -: EKG Interpreted by Me EKG shows normal: sinus rhythm, axis, intervals, QRS complexes (LVH), ST-T waves (lateral T-wave inversions and slight ST depression unchanged from previous) Rate: normal - EKG Data When compared to previous EKG there are: no significant change Interpretation: unchanged when compared t (09/08/17) - Radiology Data Radiology results: image reviewed interpreted by me: Chest x-ray does not show any acute process. There is some mild cardio megaly. No obvious pneumonia. Mild pulmonary vascular congestion. No overt pleural effusions. Abdominal x-ray shows nonspecific nonobstructive bowel gas. - Medical Decision Making Patient presents with chest and abdominal pain from dialysis without completing dialysis. She has elevated troponin but it is decreased from her previous visit and she has multiple previous cardiac evaluations including a left-sided heart cath done in July. Nonetheless, [facility] cardiology came down and looked at the patient and did a consult. The relief captain wants the patient to get dialyzed secondary to her hyperkalemia. For this reason she'll be admitted to the hospital and has been accepted by Dr. Rooney. Chest and abdominal x-rays did not show any acute process. Vital signs stable throughout her ED course. - Differential Diagnosis [place], CHF, pneumonia, bowel obstruction, gastroenteritis Critical Care Time: No Critical care attestation.: If time is entered above; I have spent that time in minutes in the direct care of this critically ill patient, excluding procedure time. ED Disposition Clinical Impression: ESRD needing dialysis, Hyperkalemia Chest pain Qualifiers: Chest pain type: unspecified Qualified Code(s): R07.9 - Chest pain, unspecified Abdominal pain Qualifiers: Abdominal location: generalized Qualified Code(s): R10.84 - Generalized abdominal pain Disposition: OP ADMIT IP TO THIS HOSP Is pt being admited?: Yes Condition: Stable
[2017-09-12] MEDS ORDERED: NACL 0.9% 100 ML IV PRN (15:01)
[2017-09-12] MEDS ORDERED: PROCRIT IV PRN (15:01)
--- NOTE | 2017-09-12 15:27 | Consultation ---
History of Present Illness Consult date: 09/12/17 Requesting physician: KIMMY GOVEA Consult reason: chest pain History of present illness: The patient is a 67 YO female with a past medical history significant for CAD, s /p PCI (PCI of RCA in 08/2016 with subsequent subacute thrombus of the proximal RCA stent and balloon angioplasty with resolution of thrombus on 11/28/2016, s/p additional PCI of RCA on 03/22/2017 @ [place]), dilated CMP, s/p S AICD implantation at [place] on 05/17/2017, systolic HF, pulmonary HTN, ESRD on HD, HTN , PVD, recurrent chest pain, paz's esophagitis and diverticulitis, and tobacco use. She is followed in our office by Dr. Ford. She is a rather poor historian. She presented with c/o epigastric pain and chest pain since last night. She describes the chest pain as a right-sided, intermittent, nonexertional, nonradiating stabbing and squeezing pain which is aggravated by deep inspiration. She also experienced some nausea overnight. She denies any palpitations, SOB, diaphoresis, dizziness or syncope. On evaluation, pt reports that the chest pain has nearly resolved but the epigastric pain is still present. She states that she is hungry but does not like the food that has been given to her and thus is refusing to eat it. Also, she is upset that her son is staying in her house and would like to be discharged so that she can go home and "kick him out". LHC done 07/27/2017 at [place] showed nonobstructive CAD with severely reduced LVEF and elevated LVEDP (LM: LI, LAD: mild to moderate LI, LCx: LI, RCA: dominant, mild-moderate LI with patent previous RCA stent, LVEDP: 38 mmHg, LVEF 25 % with diffuse global hypokinesis). Echo done 07/27/2017 showed EF 20-25%, mildly dilated LA, moderate to severe TR , moderate MR, moderately reduced RV systolic function, RVSP 63mmHg, moderate pulm HTN. Past History Past Medical History: CAD, dialysis, ESRD, hypertension Social history: lives with family, smoking. denies: alcohol abuse, prescription drug abuse Medications and Allergies Allergies Allergy/AdvReac Type Severity Reaction Status Date / Time No Known Allergies Allergy Verified 08/25/17 22:07 Home Medications Medication Instructions Recorded Confirmed Last Taken Type Aspirin EC [Aspirin Enteric Coated 81 mg PO QDAY #30 tablet 06/27/17 09/12/17 Rx TAB] AtorvaSTATin [Lipitor] 80 mg PO QHS #30 tablet 06/27/17 09/12/17 09/02/17 Rx Carvedilol [Coreg] 12.5 mg PO BID #60 tablet 06/27/17 09/12/17 09/11/17 Rx Clopidogrel [Plavix] 75 mg PO QDAY #30 tablet 06/27/17 09/12/17 09/11/17 Rx ISOSORBIDE MONOnitrate [Imdur ER] 30 mg PO QDAY #30 tablet 06/27/17 09/12/17 Rx Lisinopril [Zestril TAB] 20 mg PO QDAY #30 tablet 06/27/17 09/12/17 09/12/17 Rx Dicyclomine [Bentyl] 10 mg PO TID PRN #30 capsule 08/03/17 09/12/17 09/02/17 Rx Pantoprazole [Protonix TAB] 20 mg PO BID #20 tablet 09/07/17 09/12/17 09/11/17 Rx oxyCODONE /ACETAMINOPHEN [Percocet 1 tab PO Q6HR PRN #14 tablet 09/07/1709/12/17 Rx 5/325] Active Meds: Active Medications Epoetin Reece (Procrit) 10,000 unit IV JOAN PRN PRN Reason: hemodialysis Sodium Chloride (Nacl 0.9%) 100 mls @ 999 mls/hr IV JOAN PRN PRN Reason: Hypotension Review of Systems Constitutional: no weight loss, no weight gain, no fever, no chills, no sweats Ears, nose, mouth and throat: no ear pain Cardiovascular: chest pain, no orthopnea, no palpitations, no rapid/irregular heart beat, no edema, no syncope, no lightheadedness, no shortness of breath Respiratory: no cough, no shortness of breath, no dyspnea on exertion, no congestion, no wheezing, no pain on inspiration Gastrointestinal: abdominal pain, nausea, no diarrhea, no constipation, no change in bowel habits Genitourinary Female: no pelvic pain, no flank pain Musculoskeletal: no neck stiffness, no neck pain Integumentary: no rash, no pruritis, no redness, no sores, no wounds Neurological: no paralysis, no weakness, no parathesias, no numbness, no tingling, no seizures, no syncope Endocrine: no cold intolerance Hematologic/Lymphatic: no easy bruising, no easy bleeding Allergic/Immunologic: no urticaria, no wheezing, no persistent infections Physical Examination Vital Signs Pulse Resp 79 13 09/12/17 11:28 09/12/17 11:28 General appearance: no acute distress HEENT: Positive: PERRL, Normocephaly, Mucus Membranes Moist Neck: Positive: neck supple, trachea midline Cardiac: Positive: Reg Rate and Rhythm, S1/S2, Systolic Murmur Lungs: Positive: clear to auscultation Neuro: Positive: Grossly Intact Abdomen: Positive: Active Bowel Sounds Skin: Positive: Clear. Negative: Rash, Wound Musculoskeletal: No Fluid Collection, No Pain, Normal Range of Motion Extremities: Absent: edema Results 09/12/17 13:09 09/12/17 13:09 Cardiac Enzymes 09/12/17 Range/Units 13:09 AST 14 (5-40) units/L CBC 09/12/17 Range/Units 13:09 WBC 6.1 (4.5-11.0) K/mm3 RBC 3.36 L (3.65-5.03) M/mm3 Hgb 9.7 L (10.1-14.3) gm/dl Hct 31.9 (30.3-42.9) % Plt Count 199 (140-440) K/mm3 Lymph # 1.1 L (1.2-5.4) K/mm3 [place] # 0.6 (0.0-0.8) K/mm3 Eos # 0.1 (0.0-0.4) K/mm3 Baso # 0.1 (0.0-0.1) K/mm3 Comprehensive Metabolic Panel 09/12/17 09/12/17 Range/Units 13:09 13:09 Sodium 140 (137-145) mmol/L Potassium 5.4 H (3.6-5.0) mmol/L Chloride 97.9 L (98-107) mmol/L Carbon Dioxide 26 (22-30) mmol/L BUN 98 H (7-17) mg/dL Creatinine 8.9 H (0.7-1.2) mg/dL Glucose 80 (65-100) mg/dL Calcium 9.6 (8.4-10.2) mg/dL Direct Bilirubin < 0.2 (0-0.2) mg/dL AST 14 (5-40) units/L ALT 16 (7-56) units/L Alkaline Phosphatase 89 (35-129) units/L Total Protein 5.8 L (6.3-8.2) g/dL Albumin 3.1 L (3.9-5) g/dL - Imaging and Cardiology Echo: report reviewed (07/27/2017 showed EF 20-25%, mildly dilated LA, moderate to severe TR, moderate MR, moderately reduced RV systolic function, RVSP 63mmHg , moderate pulm HTN. ) Cardiac cath: report reviewed (07/27/2017 at [place] showed nonobstructive CAD with severely reduced LVEF and elevated LVEDP (LM: LI, LAD: mild to moderate LI , LCx: LI, RCA: dominant, mild-moderate LI with patent previous RCA stent, LVEDP : 38 mmHg, LVEF 25 % with diffuse global hypokinesis). ) EKG: report reviewed, image reviewed EKG interpretations - Telemetry EKG Rhythm: Sinus Rhythm - EKG Sinus rhythms and dysrhythmias: sinus rhythm Chamber hypertrophy or enlargement: left ventricular hypertro Repolarization changes or abnormalities: repolarization abn secondary to ventricular hypertrophy Assessment and Plan Assessment: Chest pain, atypical - with pleuritic features; recurrent; ECG with NAF Epigastric pain Elevated troponins - ECG with no acute ischemic changes; Chris flat and less than prior admissions CAD - PCI of RCA in 08/2016 with subsequent subacute thrombus of the proximal RCA stent and balloon angioplasty with resolution of thrombus on 11/28/2016, s/p additional PCI of RCA on 03/22/2017 @ [place] Dilated I/CMP - EF 20-25% S/p S AICD 04/2017 NSVT ESRD on HD Anemia Hypertension Hyperlipidemia PVD Paz's esophagitis and diverticulitis Tobacco use - cessation encouraged H/o noncompliance with medication regimen Plan: LHC done 07/27/2017 at [place] showed nonobstructive CAD with severely reduced LVEF and elevated LVEDP (LM: LI, LAD: mild to moderate LI, LCx: LI, RCA: dominant, mild-moderate LI with patent previous RCA stent, LVEDP: 38 mmHg, LVEF 25 % with diffuse global hypokinesis). Chris flat. EKG with no acute ischemic changes. Cont present cardiac management, including ASA, lipitor, coreg, plavix, lisinopril, imdur. No indication for repeat ischemic eval or echo at this time. Currently stable cardiac status. Pt for HD this afternoon per nephrology. Pt may discharge home from cardiology standpoint. Recommend follow up in our office with Amanda Spicer NP, within 1-2 weeks of hospital discharge ([phone]). Assessment and plan reviewed with pt at bedside. The patient has been seen in conjunction with Dr. Kim who agrees with the assessment and plan of care.
--- NOTE | 2017-09-12 19:34 | History and Physical Report ---
History of Present Illness Date of examination: 09/12/17 Date of admission: 09/12/17 Chief complaint: CC Chest pain 1 day History of present illness: BHAVNA: This is a 67 year-old female who presents to the emergency department by EMS from her dialysis center with a complaint of chest pain and abdominal pain. She presents now on account of chest pain and abdominal pain which awakened her at 2 AM today. She describes the pain as a tightening of her chest and epigastric area. It's intermittent of moderate severity 6-03/26 she states. There is no associated nausea or vomiting. No cough or sputum production. No fever or chills. No known aggravating factors. Pain persisted and so patient came to the hospital for further evaluation. When she told the facility that she was having this discomfort they called the ambulance and she did not receive any dialysis. She normally gets it on Sunday/Sunday/ Sunday and says she didn't get it last Sunday. She was given a sublingual nitroglycerin and a full dose aspirin in route without much relief. She has a past medical history of arthritis, CHF, CVA, hypertension, cardiomegaly. The patient had a left-sided heart cath at [place] on 08/06/17 but did not show any obstructing lesions. She is followed by [facility] cardiology. Past Medical History Hypertension: Yes CVA: (x 2) (chronic chest pain, multiple visits over past year)Congestive Heart Failure GERD Liver Disease: Yes (LESION)Renal Disease (ESRD/dialysis M, W, F)Arthritis Enlarged heart, gout, [facility] CORONARY ANGIOGRAPHY [place] 08/06/2017-NONOBSTRUCTING HEART PER DR GIDEON BENOIT - Surgical History Hx Coronary Stent: Yes Hx Appendectomy: Yes Additional Surgical History: tubal ligation, vas cath. LUE fistula. cardiac workup includes a stress test on 12/21/2016 that was unremarkable. Patient status post PCI of RCA with subsequent subacute thrombus of the proximal RCA stent and angioplasty with resolution of thrombosis on November 2016. AICD placement Aug 2017. PCI 03/22/17 of RCA. 05/01/17 neg Lexiscan stress - Social History Smoking Status: Current Every Day Smoker Substance Use Type: None - Medications Home Medications: Home Medications Medication Instructions Recorded Confirmed Last Taken Type Aspirin EC [Aspirin Enteric Coated 81 mg PO QDAY #30 tablet 06/27/17 09/12/17 Rx TAB] AtorvaSTATin [Lipitor] 80 mg PO QHS #30 tablet 06/27/17 09/12/17 09/02/17 Rx Carvedilol [Coreg] 12.5 mg PO BID #60 tablet 06/27/17 09/12/17 09/11/17 Rx Clopidogrel [Plavix] 75 mg PO QDAY #30 tablet 06/27/17 09/12/17 09/11/17 Rx ISOSORBIDE MONOnitrate [Imdur ER] 30 mg PO QDAY #30 tablet 06/27/17 09/12/17 Rx Lisinopril [Zestril TAB] 20 mg PO QDAY #30 tablet 06/27/17 09/12/17 09/12/17 Rx Dicyclomine [Bentyl] 10 mg PO TID PRN #30 capsule 08/03/17 09/12/17 09/02/17 Rx Pantoprazole [Protonix TAB] 20 mg PO BID #20 tablet 09/07/17 09/12/17 09/11/17 Rx oxyCODONE /ACETAMINOPHEN [Percocet 1 tab PO Q6HR PRN #14 tablet 09/07/1709/12/17 Rx 5/325] Review of Systems Stated complaint: CHEST PAIN/ABD PAIN Other details as noted in HPI Comment: All other systems reviewed and negative Constitutional: denies: chills, fever Eyes: denies: eye pain, eye discharge, vision change ENT: denies: ear pain, throat pain Respiratory: denies: cough, shortness of breath Cardiovascular: chest pain. denies: palpitations Gastrointestinal: abdominal pain. denies: vomiting Genitourinary: denies: urgency, dysuria, discharge Musculoskeletal: denies: back pain, joint swelling, arthralgia Skin: denies: rash, lesions Neurological: denies: headache, weakness, paresthesias Past History Past Medical History: CAD, dialysis, ESRD, hypertension Social history: lives with family, smoking. denies: alcohol abuse, prescription drug abuse Medications and Allergies Allergies Allergy/AdvReac Type Severity Reaction Status Date / Time No Known Allergies Allergy Verified 08/25/17 22:07 Home Medications Medication Instructions Recorded Confirmed Last Taken Type Aspirin EC [Aspirin Enteric Coated 81 mg PO QDAY #30 tablet 06/27/17 09/12/17 Rx TAB] AtorvaSTATin [Lipitor] 80 mg PO QHS #30 tablet 06/27/17 09/12/17 09/02/17 Rx Carvedilol [Coreg] 12.5 mg PO BID #60 tablet 06/27/17 09/12/17 09/11/17 Rx Clopidogrel [Plavix] 75 mg PO QDAY #30 tablet 06/27/17 09/12/17 09/11/17 Rx ISOSORBIDE MONOnitrate [Imdur ER] 30 mg PO QDAY #30 tablet 06/27/17 09/12/17 Rx Lisinopril [Zestril TAB] 20 mg PO QDAY #30 tablet 06/27/17 09/12/17 09/12/17 Rx Dicyclomine [Bentyl] 10 mg PO TID PRN #30 capsule 08/03/17 09/12/17 09/02/17 Rx Pantoprazole [Protonix TAB] 20 mg PO BID #20 tablet 09/07/17 09/12/17 09/11/17 Rx oxyCODONE /ACETAMINOPHEN [Percocet 1 tab PO Q6HR PRN #14 tablet 09/07/1709/12/17 Rx 5/325] Active Meds: Active Medications Epoetin Reece (Procrit) 10,000 unit IV JOAN PRN PRN Reason: hemodialysis Heparin Sodium (Porcine) (Heparin) 5,000 unit SUB-Q Q8HR ETHAN Sodium Chloride (Nacl 0.9%) 100 mls @ 999 mls/hr IV JOAN PRN PRN Reason: Hypotension Exam - Constitutional Vitals: Temp Pulse Resp BP Pulse Ox 98.3 F 91 H 18 130/56 94 09/12/17 11:47 09/12/17 18:30 09/12/17 18:30 09/12/17 18:30 09/12/17 18:30 General appearance: Present: no acute distress, well-nourished - EENT Eyes: Present: PERRL ENT: hearing intact, clear oral mucosa - Neck Neck: Present: supple, normal ROM - Respiratory Respiratory effort: normal Respiratory: bilateral: CTA - Cardiovascular Heart rate: 70 Rhythm: regular Heart Sounds: Present: S1 & S2. Absent: rub, click - Extremities Extremities: no ischemia, pulses intact, pulses symmetrical, No edema Peripheral Pulses: within normal limits - Abdominal General gastrointestinal: Present: soft, non-tender, non-distended, normal bowel sounds Female genitourinary: Present: normal - Rectal Rectal Exam: deferred - Integumentary Integumentary: Present: clear, warm, dry - Musculoskeletal Musculoskeletal: gait normal, strength equal bilaterally - Psychiatric Psychiatric: appropriate mood/affect, intact judgment & insight - Neurologic Neurologic: CNII-XII intact, moves all extremities - Allied Health Allied health notes reviewed: nursing, case management Results - Labs CBC & Chem 7: 09/13/17 02:37 09/13/17 02:37 Labs: Laboratory Last Values WBC 6.1 K/mm3 (4.5-11.0) 09/12/17 13:09 RBC 3.36 M/mm3 (3.65-5.03) L 09/12/17 13:09 Hgb 9.7 gm/dl (10.1-14.3) L 09/12/17 13:09 Hct 31.9 % (30.3-42.9) 09/12/17 13:09 MCV 95 fl (79-97) 09/12/17 13:09 MCH 29 pg (28-32) 09/12/17 13:09 MCHC 31 % (30-34) 09/12/17 13:09 RDW 20.2 % (13.2-15.2) H 09/12/17 13:09 Plt Count 199 K/mm3 (140-440) 09/12/17 13:09 Lymph % (Auto) 17.4 % (13.4-35.0) 09/12/17 13:09 [place] % (Auto) 10.6 % (0.0-7.3) H 09/12/17 13:09 Eos % (Auto) 1.5 % (0.0-4.3) 09/12/17 13:09 Baso % (Auto) 1.0 % (0.0-1.8) 09/12/17 13:09 Lymph # 1.1 K/mm3 (1.2-5.4) L 09/12/17 13:09 [place] # 0.6 K/mm3 (0.0-0.8) 09/12/17 13:09 Eos # 0.1 K/mm3 (0.0-0.4) 09/12/17 13:09 Baso # 0.1 K/mm3 (0.0-0.1) 09/12/17 13:09 Seg Neutrophils % 69.5 % (40.0-70.0) 09/12/17 13:09 Seg Neutrophils # 4.3 K/mm3 (1.8-7.7) 09/12/17 13:09 Sodium 140 mmol/L (137-145) 09/12/17 13:09 Potassium 5.4 mmol/L (3.6-5.0) H 09/12/17 13:09 Chloride 97.9 mmol/L (98-107) L 09/12/17 13:09 Carbon Dioxide 26 mmol/L (22-30) 09/12/17 13:09 Anion Gap 22 mmol/L 09/12/17 13:09 BUN 98 mg/dL (7-17) H 09/12/17 13:09 Creatinine 8.9 mg/dL (0.7-1.2) H 09/12/17 13:09 Estimated GFR 5 ml/min 09/12/17 13:09 BUN/Creatinine Ratio 11 % 09/12/17 13:09 Glucose 80 mg/dL (65-100) 09/12/17 13:09 Calcium 9.6 mg/dL (8.4-10.2) 09/12/17 13:09 Total Bilirubin 0.40 mg/dL (0.1-1.2) 09/12/17 13:09 Direct Bilirubin < 0.2 mg/dL (0-0.2) 09/12/17 13:09 AST 14 units/L (5-40) 09/12/17 13:09 ALT 16 units/L (7-56) 09/12/17 13:09 Alkaline Phosphatase 89 units/L (35-129) 09/12/17 13:09 Troponin T 0.209 ng/mL (0.00-0.029) H* 09/12/17 17:42 Total Protein 5.8 g/dL (6.3-8.2) L 09/12/17 13:09 Albumin 3.1 g/dL (3.9-5) L 09/12/17 13:09 Albumin/Globulin Ratio 1.1 % 09/12/17 13:09 - Imaging and Cardiology EKG: report reviewed (NSR 88/min) Chest x-ray: report reviewed (Pulmonary venous congestion and Cardiomegaly) Assessment and Plan Advance Directives: Yes (Full code) VTE prophylaxis?: Chemical Plan of care discussed with patient/family: Yes - Patient Problems (1) Hyperkalemia Current Visit: Yes Status: Acute Plan to address problem: K of 5.4 (2) Chest pain Current Visit: Yes Status: Acute Qualifiers: Chest pain type: unspecified Qualified Code(s): R07.9 - Chest pain, unspecified Plan to address problem: Multiple w/u in past including recent cath.Only cardiac enzymes ordered.No Lexiscan/Stress test ordered.recent MPIin 817 and recent cath in July -no acute findings.Cath procedure was not known to me-if not patient would have been discharged from ED.Observation for one day and discharge (3) Elevated troponin Current Visit: Yes Status: Chronic Plan to address problem: Will trend it .CK low.Not in favor of acute injury (4) CAD (coronary artery disease) Current Visit: Yes Status: Chronic Qualifiers: Coronary Disease-Associated Artery/Lesion type: [place] artery [place] vs. transplanted heart: [place] heart Plan to address problem: Cont Plavix (5) ESRD (end stage renal disease) on dialysis Current Visit: Yes Status: Chronic Plan to address problem: Cont HD (6) HTN (hypertension) Current Visit: Yes Status: Chronic Qualifiers: Hypertension type: essential hypertension Qualified Code(s): I10 - Essential (primary) hypertension Plan to address problem: cont antihypertensives (7) HLD (hyperlipidemia) Current Visit: Yes Status: Chronic Qualifiers: Hyperlipidemia type: mixed hyperlipidemia Qualified Code(s): E78.2 - Mixed hyperlipidemia Plan to address problem: Cont statins (8) DVT prophylaxis Current Visit: No Status: Acute (9) GERD (gastroesophageal reflux disease) Current Visit: Yes Status: Chronic Qualifiers: Esophagitis presence: with esophagitis Qualified Code(s): K21.0 - Gastro- esophageal reflux disease with esophagitis Plan to address problem: Cont protonix
[2017-09-12] MEDS ORDERED: TYLENOL PO PRN (19:35)
[2017-09-12] MEDS ORDERED: AMBIEN PO PRN (19:35)
[2017-09-12] MEDS ORDERED: DULCOLAX PR PRN (19:35)
[2017-09-12] MEDS ORDERED: ZOFRAN IV PRN (19:35)
[2017-09-12] MEDS ORDERED: MILK OF MAGNESIA PO PRN (19:35)
[2017-09-12] MEDS ORDERED: BENTYL PO PRN (20:02)
[2017-09-12] MEDS ORDERED: PERCOCET 5/325 PO PRN (20:02)
--- NOTE | 2017-09-12 20:37 | Consultation ---
History of Present Illness - Reason for Consult Consult date: 09/12/17 end stage renal disease Requesting physician: KIMMY GOVEA - History of Present Illness 67-year-old lady who is well-known to me with end-stage renal disease on hemodialysis on a Sunday schedule. Patient has had numerous hospitalizations over the last year with chest pain and abdominal pain. Has a history of coronary artery disease disease with percutaneous coronary intervention and stent placement. She had right in-stent stenosis of the right coronary artery for which She had angioplasty this summer. Patient has also been hospitalized at [facility] with similar symptoms and has had cardiac evaluation and treatment there also. She presents now on account of chest pain and abdominal pain which awakened her at 2 AM today. She describes the pain as a tightening of her chest and epigastric area. It's intermittent of moderate severity 6-03/26 she states. There is no associated nausea or vomiting. No cough or sputum production. No fever or chills. No known aggravating factors. Pain persisted and so patient came to the hospital for further evaluation. Past History Past Medical History: CAD, dialysis, ESRD, hypertension Past Surgical History: Other (left upper extremity fistula, tubal ligation, cardiac catheterization with percutaneous transluminal coronary angioplasty and stenting) Social history: , Lives alone (she was living alone but her son has come to live with her to help take care of her. 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 denies: alcohol abuse, prescription drug abuse, IV drug use Family history: diabetes (parents and her brother), hypertension (both parents and her brother), other (father of complications of rheumatic fever. Mother of kidney failure in her 60s. One brother was on dialysis before he ) Medications and Allergies Allergies Allergy/AdvReac Type Severity Reaction Status Date / Time No Known Allergies Allergy Verified 08/25/17 22:07 Home Medications Medication Instructions Recorded Confirmed Last Taken Type Aspirin EC [Aspirin Enteric Coated 81 mg PO QDAY #30 tablet 06/27/17 09/12/17 Rx TAB] AtorvaSTATin [Lipitor] 80 mg PO QHS #30 tablet 06/27/17 09/12/17 09/02/17 Rx Carvedilol [Coreg] 12.5 mg PO BID #60 tablet 06/27/17 09/12/17 09/11/17 Rx Clopidogrel [Plavix] 75 mg PO QDAY #30 tablet 06/27/17 09/12/17 09/11/17 Rx ISOSORBIDE MONOnitrate [Imdur ER] 30 mg PO QDAY #30 tablet 06/27/17 09/12/17 Rx Lisinopril [Zestril TAB] 20 mg PO QDAY #30 tablet 06/27/17 09/12/17 09/12/17 Rx Dicyclomine [Bentyl] 10 mg PO TID PRN #30 capsule 08/03/17 09/12/17 09/02/17 Rx Pantoprazole [Protonix TAB] 20 mg PO BID #20 tablet 09/07/17 09/12/17 09/11/17 Rx oxyCODONE /ACETAMINOPHEN [Percocet 1 tab PO Q6HR PRN #14 tablet 09/07/1709/12/17 Rx 5/325] Active Meds: Active Medications Acetaminophen (Tylenol) 650 mg PO Q4H PRN PRN Reason: Pain MILD(1-3)/Fever >100.5/SANCHEZ Aspirin (Halfprin Ec) 81 mg PO QDAY ETHAN Atorvastatin Calcium (Lipitor) 80 mg PO QHS ETHAN Bisacodyl (Dulcolax) 10 mg [place] QDAY PRN PRN Reason: Constipation unrelieved by MOM Carvedilol (Coreg) 12.5 mg PO BID ETHAN Clopidogrel Bisulfate (Plavix) 75 mg PO QDAY ETHAN Dicyclomine HCl (Bentyl) 10 mg PO TID PRN PRN Reason: Pain Epoetin Reece (Procrit) 10,000 unit IV JOAN PRN PRN Reason: hemodialysis Heparin Sodium (Porcine) (Heparin) 5,000 unit SUB-Q Q8HR [facility] Sodium Chloride (Nacl 0.9%) 100 mls @ 999 mls/hr IV JOAN PRN PRN Reason: Hypotension Isosorbide Mononitrate (Imdur) 30 mg PO QDAY [facility] Lisinopril (Zestril) 20 mg PO QDAY ETHAN Magnesium Hydroxide (Milk Of Magnesia) 30 ml PO Q4H PRN PRN Reason: Constipation Ondansetron HCl (Zofran) 4 mg IV Q8H PRN PRN Reason: N/V unrelieved by Reglan Oxycodone/Acetaminophen (Percocet 5/325) 1 tab PO Q6H PRN PRN Reason: Pain, Moderate (4-6) Oxycodone/Acetaminophen (Percocet 5/325) 1 tab PO Q6HR PRN PRN Reason: Pain Pantoprazole Sodium (Protonix) 20 mg PO BID ETHAN Zolpidem Tartrate (Ambien) 5 mg PO QHS PRN PRN Reason: Insomnia Review of Systems All systems: negative (Constitutional: no fever or chills. Appetite is diminished and patient has lost weight. HEENT: No sore throat or sinus drainage no hearing or vision impairment . Cardiovascular: No chest pain, shortness of breath, palpitations, lower extremity swelling or dizziness. Respiratory: No cough, sputum, shortness of breath, hemoptysis or wheezing. Gastrointestinal: No nausea, vomiting, diarrhea, abdominal pain, hematemesis or melena. Admits to constipation Genitourinary: She makes very little urine No frequency urgency dysuria or hematuria. hematologic: No abnormal bleeding or bruising. Integumentary: no pruritus or rash. Neurological: Complains of headache and dizziness on standing up. No focal weakness or numbness, no syncope or seizures. Musculoskeletal: No joint pains no stiffness. Psychiatry: no anxiety or depression) Exam - Vital Signs Vital signs: Vital Signs Pulse Resp 79 13 09/12/17 11:28 09/12/17 11:28 - Physical Exam Narrative exam: Middle-aged female In bed in no acute distress HEENT: NCAT, pink oral mucous membrane Neck: Supple, no venous distention CVS: S1S2 RRR with no murmur, rub or gallop Chest: Clear to auscultation, good expansion Abdomen: Protuberant, soft, mild epigastric tenderness, no organomegaly, bowel sounds are present Extremities: No edema number no clubbing Back: No tenderness or deformity Neuro: Awake, alert no focal deficits Results - Lab Results 09/12/17 13:09 09/12/17 13:09 Most recent lab results Calcium 9.6 mg/dL (8.4-10.2) 09/12/17 13:09 Assessment and Plan - Patient Problems (1) Hyperkalemia Current Visit: Yes Status: Acute Plan to address problem: Secondary to missed dialysis treatments and incomplete treatments. Reinforced importance of adhering to her dialysis regimen. Repeat potassium after dialysis (2) ESRD needing dialysis Current Visit: Yes Status: Chronic Plan to address problem: Dialysis 3 times a week. Needs to keep to treatment schedule (3) Abdominal pain Current Visit: No Status: Acute Plan to address problem: Get records of previous GI evaluation (4) Atypical chest pain Current Visit: No Status: Acute Plan to address problem: Cardiology evaluation
[2017-09-12 21:33] LABS: Creatine Kinase MB 2.4 ng/mL (0.0-4.0)
[2017-09-12] MEDS: PERCOCET 5/325 PO PRN (21:40)
[2017-09-12] MEDS: IMDUR PO SCH (23:45)
[2017-09-12] MEDS: ZESTRIL PO SCH (23:46)
[2017-09-12] MEDS: COREG PO SCH (23:46)
[2017-09-12] MEDS: HALFPRIN EC PO SCH (23:46)
[2017-09-12] MEDS: PLAVIX PO SCH (23:47)
[2017-09-12] MEDS: PROTONIX PO SCH (23:48)
[2017-09-12] MEDS: HEPARIN SUB-Q SCH (23:48)
[2017-09-13 03:14] LABS: Basophils % (Auto) 0.7 % (0.0-1.8); Eosinophils # (Auto) 0.2 K/mm3 (0.0-0.4); Eosinophils % (Auto) 4.4 % (0.0-4.3); Hematocrit 31.4 % (30.3-42.9); Hemoglobin 9.9 gm/dl (10.1-14.3); Lymphocytes % (Auto) 23.1 % (13.4-35.0); Mean Corpuscular HGB Conc 32 % (30-34); Mean Corpuscular Hemoglobin 29 pg (28-32); Mean Corpuscular Volume 93 fl (79-97); Monocytes # (Auto) 0.7 K/mm3 (0.0-0.8); Monocytes % (Auto) 15.3 % (0.0-7.3); Platelet Count 215 K/mm3 (140-440); Red Blood Count 3.39 M/mm3 (3.65-5.03)
[2017-09-13 03:21] LABS: Red Cell Distribution Width 20.3 % (13.2-15.2)
[2017-09-13 03:38] LABS: Creatine Kinase MB 2.2 ng/mL (0.0-4.0)
[2017-09-13 03:40] LABS: Albumin 3.1 g/dL (3.9-5); Calcium 9.4 mg/dL (8.4-10.2)
[2017-09-13] MEDS: PERCOCET 5/325 PO PRN (07:33)
[2017-09-13] MEDS: HEPARIN SUB-Q SCH (07:34)
[2017-09-13] MEDS: PROTONIX PO SCH (09:05)
[2017-09-13] MEDS: HALFPRIN EC PO SCH (09:05)
[2017-09-13] MEDS: ZESTRIL PO SCH (09:05)
[2017-09-13] MEDS: COREG PO SCH (09:05)
[2017-09-13] MEDS: IMDUR PO SCH (09:05)
[2017-09-13] MEDS: PLAVIX PO SCH (09:05)
--- NOTE | 2017-09-13 09:17 | Progress Note ---
Assessment and Plan Assessment: Chest pain, atypical - with pleuritic features; recurrent; ECG with NAF Epigastric pain Elevated troponins - ECG with no acute ischemic changes; Chris flat and less than prior admissions CAD - PCI of RCA in 08/2016 with subsequent subacute thrombus of the proximal RCA stent and balloon angioplasty with resolution of thrombus on 11/28/2016, s/p additional PCI of RCA on 03/22/2017 @ [facility] Dilated I/CMP - EF 20-25% S/p S AICD 04/2017 NSVT ESRD on HD Anemia Hypertension Hyperlipidemia PVD Randolph's esophagitis and diverticulitis Tobacco use - cessation encouraged H/o noncompliance with medication regimen Plan: LHC done 07/27/2017 at [facility] showed nonobstructive CAD with severely reduced LVEF and elevated LVEDP (LM: LI, LAD: mild to moderate LI, LCx: LI, RCA: dominant, mild-moderate LI with patent previous RCA stent, LVEDP: 38 mmHg, LVEF 25 % with diffuse global hypokinesis). Chris flat. EKG with no acute ischemic changes. Cont present cardiac management, including ASA, lipitor, coreg, plavix, lisinopril, imdur. No indication for repeat ischemic eval or echo at this time. Currently stable cardiac status. Pt may discharge home from cardiology standpoint. Recommend follow up in our office with Amanda Spicer NP, within 1-2 weeks of hospital discharge ([phone]). Assessment and plan reviewed with pt at bedside. The patient has been seen in conjunction with Dr. Khadra Still who agrees with the assessment and plan of care. Subjective Date of service: 09/13/17 Principal diagnosis: chest pain Interval history: Pt ambulating around room without difficulty, c/o abdominal pain. VSS. Objective Last Vital Signs Temp 98.7 F 09/13/17 07:26 Pulse 86 09/13/17 07:26 Resp 16 09/13/17 07:26 BP 136/65 09/13/17 07:26 Pulse Ox 98 09/13/17 07:26 - Physical Examination HEENT: Positive: PERRL, Normocephaly, Mucus Membranes Moist Neck: Positive: neck supple, trachea midline Cardiac: Positive: Reg Rate and Rhythm, S1/S2, Systolic Murmur Lungs: Positive: Decreased Breath Sounds Neuro: Positive: Grossly Intact Abdomen: Positive: Active Bowel Sounds Skin: Positive: Clear. Negative: Rash, Wound Musculoskeletal: No Fluid Collection, No Pain, Normal Range of Motion Extremities: Absent: edema - Labs and Meds Cardiac Enzymes 09/12/17 09/12/17 09/13/17 Range/Units 13:09 20:55 02:37 AST 14 13 (5-40) units/L CK-MB (CK-2) 2.4 (0.0-4.0) ng/mL 09/13/17 09/13/17 Range/Units 02:37 08:21 AST (5-40) units/L CK-MB (CK-2) 2.2 2.0 (0.0-4.0) ng/mL CBC 09/12/17 09/13/17 Range/Units 13:09 02:37 WBC 6.1 4.4 L (4.5-11.0) K/mm3 RBC 3.36 L 3.39 L (3.65-5.03) M/mm3 Hgb 9.7 L 9.9 L (10.1-14.3) gm/dl Hct 31.9 31.4 (30.3-42.9) % Plt Count 199 215 (140-440) K/mm3 Lymph # 1.1 L 1.0 L (1.2-5.4) K/mm3 [place] # 0.6 0.7 (0.0-0.8) K/mm3 Eos # 0.1 0.2 (0.0-0.4) K/mm3 Baso # 0.1 0.0 (0.0-0.1) K/mm3 Comprehensive Metabolic Panel 09/12/17 09/12/17 09/13/17 Range/Units 13:09 13:09 02:37 Sodium 140 143 (137-145) mmol/L Potassium 5.4 H 4.6 (3.6-5.0) mmol/L Chloride 97.9 L 100.7 (98-107) mmol/L Carbon Dioxide 26 30 (22-30) mmol/L BUN 98 H 61 H (7-17) mg/dL Creatinine 8.9 H 6.1 H (0.7-1.2) mg/dL Glucose 80 92 (65-100) mg/dL Calcium 9.6 9.4 (8.4-10.2) mg/dL Direct Bilirubin < 0.2 (0-0.2) mg/dL AST 14 13 (5-40) units/L ALT 16 10 (7-56) units/L Alkaline Phosphatase 89 81 (35-129) units/L Total Protein 5.8 L 6.3 (6.3-8.2) g/dL Albumin 3.1 L 3.1 L (3.9-5) g/dL - Imaging and Cardiology EKG: report reviewed (NSR 88/min) Echo: report reviewed (07/27/2017 showed EF 20-25%, mildly dilated LA, moderate to severe TR, moderate MR, moderately reduced RV systolic function, RVSP 63mmHg , moderate pulm HTN. ) Cardiac cath: report reviewed (07/27/2017 at [facility] showed nonobstructive CAD with severely reduced LVEF and elevated LVEDP (LM: LI, LAD: mild to moderate LI , LCx: LI, RCA: dominant, mild-moderate LI with patent previous RCA stent, LVEDP : 38 mmHg, LVEF 25 % with diffuse global hypokinesis). ) - EKG Sinus rhythms and dysrhythmias: sinus rhythm Chamber hypertrophy or enlargement: left ventricular hypertro Repolarization changes or abnormalities: repolarization abn secondary to ventricular hypertrophy
--- NOTE | 2017-09-13 09:23 | Discharge Summary ---
Providers - Providers Date of Admission: 09/12/17 19:23 Attending physician: DELGADO GOMEZ MD 09/12/17 15:24 Consult to Physician [CONS] Routine Consulting Provider: JANETTE NOLASCO Reason For Exam: Chest pain Place consult to:: Yady Lazaro Notified:: yes 09/12/17 15:25 Consult to Physician [CONS] Routine Consulting Provider: NOAH RASHID Reason For Exam: Dialysis Place consult to:: Dr. Rashid Notified:: yes Was contact made?: Yes If yes, spoke with:: Dr Rashid Primary care physician: EXTRUSION OPERATOR Hospitalization Condition: Stable Hospital course: This is a 67 year-old female who presents with chest pain. Patient had recently had a left heart cath in July that did not show any obstructive disease. Acute coronary syndrome was ruled out, troponins were stable. Elevated troponin is most likely due to end-stage renal disease and not a cardiac etiology. She received cardiology consult, who recommended continued medical management. She received dialysis for hyperkalemia and end- stage renal disease. Patient was subsequently discharged Discharge diagnoses Chest pain due GERD Hyperkalemia Elevated troponin due to end-stage renal disease End-stage renal disease GERD Hyperlipidemia Disposition: DC- TO HOME OR SELFCARE Time spent for discharge: 35 minutes Core Measure Documentation - Palliative Care Palliative Care/ Comfort Measures: Not Applicable - Core Measures Any of the following diagnoses?: none Exam - Constitutional Vitals: Temp Pulse Resp BP Pulse Ox 98.7 F 86 16 136/65 98 09/13/17 07:26 09/13/17 07:26 09/13/17 07:26 09/13/17 07:26 09/13/17 07:26 General appearance: Present: no acute distress, well-nourished - EENT Eyes: Present: PERRL ENT: hearing intact, clear oral mucosa - Neck Neck: Present: supple, normal ROM - Respiratory Respiratory effort: normal Respiratory: bilateral: CTA - Cardiovascular Heart Sounds: Present: S1 & S2. Absent: rub, click - Extremities Extremities: pulses symmetrical, No edema Peripheral Pulses: within normal limits - Abdominal General gastrointestinal: Present: soft, non-tender, non-distended, normal bowel sounds Female genitourinary: Present: normal - Integumentary Integumentary: Present: clear, warm, dry - Musculoskeletal Musculoskeletal: gait normal, strength equal bilaterally - Psychiatric Psychiatric: appropriate mood/affect, intact judgment & insight - Neurologic Neurologic: CNII-XII intact, moves all extremities Plan Follow up with: PRIMARY CARE,MD [Primary Care Provider] - 3-5 Days RAZA MADRIGAL NP [Advanced Practice Nurse] - 7 Days Prescriptions: Dicyclomine [Bentyl] 10 mg PO TID PRN #30 capsule PRN Reason: Pain oxyCODONE /ACETAMINOPHEN [Percocet 5/325 mg] 1 tab PO Q6HR PRN #14 tablet PRN Reason: Pain
[2017-09-13 12:18] VITALS: BP 110/45
== END 2017-09-13 15:12 | disposition home or self-care (01) | DRG 391 ==
LOC: ED 11:14 → 2B-ACE 19:23 → 3A 19:36
PROVIDERS: ADMIT Internal Medicine; ATTEND Internal Medicine
PROC: 5A1D70Z Performance of Urinary Filtration, Intermittent, Less than 6 Hours Per Day (ICD-10-PCS; principal; 2017-09-12)
DX: K21.9 Gastro-esophageal reflux disease without esophagitis (principal); N18.6 End stage renal disease; I13.2 Hypertensive heart and chronic kidney disease with heart failure and with stage 5 chronic kidney disease, or end stage renal disease; I42.0 Dilated cardiomyopathy; I47.1 Supraventricular tachycardia; K57.92 Diverticulitis of intestine, part unspecified, without perforation or abscess without bleeding; I25.10 Atherosclerotic heart disease of native coronary artery without angina pectoris; E78.5 Hyperlipidemia, unspecified; D64.9 Anemia, unspecified; K22.70 Barrett's esophagus without dysplasia; I73.9 Peripheral vascular disease, unspecified; E87.5 Hyperkalemia; G89.29 Other chronic pain; M19.90 Unspecified osteoarthritis, unspecified site; M10.9 Gout, unspecified; Z79.899 Other long term (current) drug therapy; F17.210 Nicotine dependence, cigarettes, uncomplicated; Z86.73 Personal history of transient ischemic attack (TIA), and cerebral infarction without residual deficits; Z90.49 Acquired absence of other specified parts of digestive tract; Z98.51 Tubal ligation status; Z95.5 Presence of coronary angioplasty implant and graft; Z95.810 Presence of automatic (implantable) cardiac defibrillator; Z79.82 Long term (current) use of aspirin; Z83.3 Family history of diabetes mellitus; Z84.1 Family history of disorders of kidney and ureter
CPT/HCPCS: 36415; 74022; 80048; 80053; 80074; 82550; 82553; 82962; 83036; 84484; 85025; 93005; 93010; 96374; A9270-GY; J1644; J2270

== ENCOUNTER 2017-09-18 09:55 | Emergency (ER) | payer MEDICARE ==
[2017-09-18 10:15] VITALS: BP 146/66
[2017-09-18] MEDS ORDERED: ASPIRIN PO ONE (10:16)
[2017-09-18 10:42] LABS: Basophils # (Auto) 0.1 K/mm3 (0.0-0.1); Basophils % (Auto) 1.2 % (0.0-1.8); Eosinophils % (Auto) 0.3 % (0.0-4.3); Hematocrit 31.8 % (30.3-42.9); Hemoglobin 10.3 gm/dl (10.1-14.3); Lymphocytes # (Auto) 0.5 K/mm3 (1.2-5.4); Lymphocytes % (Auto) 12.6 % (13.4-35.0); Mean Corpuscular HGB Conc 32 % (30-34); Mean Corpuscular Hemoglobin 29 pg (28-32); Mean Corpuscular Volume 91 fl (79-97); Monocytes # (Auto) 0.3 K/mm3 (0.0-0.8); Monocytes % (Auto) 8.4 % (0.0-7.3); Platelet Count 254 K/mm3 (140-440); Red Blood Count 3.49 M/mm3 (3.65-5.03); Red Cell Distribution Width 19.2 % (13.2-15.2)
[2017-09-18 10:54] LABS: Calcium 9.8 mg/dL (8.4-10.2)
[2017-09-18 11:16] LABS: Chol/HDL Ratio 2.3 %
== END 2017-09-18 14:05 | disposition left against medical advice (07) ==
LOC: ED 09:55
DX: R07.9 Chest pain, unspecified (principal); Z53.21 Procedure and treatment not carried out due to patient leaving prior to being seen by health care provider
CPT/HCPCS: 36415; 80048; 80061; 84484; 85025; 93005; 93010

== ENCOUNTER 2017-09-19 10:44 | Emergency (ER) | payer MEDICARE ==
[2017-09-19 11:06] VITALS: BP 137/59
[2017-09-19 11:46] LABS: Calcium 9.4 mg/dL (8.4-10.2)
[2017-09-19 13:13] LABS: Basophils % (Auto) 0.5 % (0.0-1.8); Eosinophils % (Auto) 1.2 % (0.0-4.3); Hematocrit 31.5 % (30.3-42.9); Hemoglobin 9.9 gm/dl (10.1-14.3); Lymphocytes # (Auto) 0.9 K/mm3 (1.2-5.4); Lymphocytes % (Auto) 20.5 % (13.4-35.0); Mean Corpuscular HGB Conc 31 % (30-34); Mean Corpuscular Hemoglobin 28 pg (28-32); Mean Corpuscular Volume 91 fl (79-97); Monocytes # (Auto) 0.6 K/mm3 (0.0-0.8); Monocytes % (Auto) 13.8 % (0.0-7.3); Platelet Count 271 K/mm3 (140-440); Red Blood Count 3.47 M/mm3 (3.65-5.03)
[2017-09-19 13:14] LABS: Red Cell Distribution Width 20.6 % (13.2-15.2)
--- NOTE | 2017-09-19 20:22 | XRay Report ---
FINAL REPORT EXAM: XR CHEST ROUTINE 2V HISTORY: Shortness of breath TECHNIQUE: PA and lateral views of the chest PRIORS: CXR 09/06/2017 FINDINGS: Lines, tubes, and devices: A left upper quadrant abdominal battery compartment with a single lead overlying left right-sided mediastinum is again noted. Lungs and pleura: Trachea is normal in position. There is an alveolar infiltrate in the left lower lobe with air bronchograms suspicious for pneumonia. I cannot exclude a right infrahilar infiltrate. Cardiomediastinal silhouette: The heart is enlarged but stable. Other: Bony structures are intact. IMPRESSION: Alveolar infiltrate in left lower lobe with possible involvement of the right infrahilar region as well.
== END 2017-09-19 19:54 | disposition left against medical advice (07) ==
LOC: ED 10:44
DX: R07.9 Chest pain, unspecified (principal); Z53.21 Procedure and treatment not carried out due to patient leaving prior to being seen by health care provider
CPT/HCPCS: 36415; 71046; 80048; 84484; 85025; 93005; 93010

== ENCOUNTER 2017-09-20 12:52 | Emergency (ER) | payer MEDICARE ==
[2017-09-20 13:10] VITALS: BP 153/64
[2017-09-20] MEDS ORDERED: ASPIRIN PO ONE (13:10)
[2017-09-20 16:06] LABS: Basophils % (Auto) 0.4 % (0.0-1.8); Eosinophils % (Auto) 0.7 % (0.0-4.3); Hemoglobin 9.9 gm/dl (10.1-14.3); Lymphocytes % (Auto) 24.8 % (13.4-35.0); Mean Corpuscular HGB Conc 32 % (30-34); Mean Corpuscular Hemoglobin 29 pg (28-32); Mean Corpuscular Volume 91 fl (79-97); Monocytes # (Auto) 0.4 K/mm3 (0.0-0.8); Monocytes % (Auto) 8.8 % (0.0-7.3); Platelet Count 279 K/mm3 (140-440); Red Blood Count 3.39 M/mm3 (3.65-5.03); Red Cell Distribution Width 19.9 % (13.2-15.2)
[2017-09-20 16:49] LABS: Albumin 3.7 g/dL (3.9-5); Calcium 9.1 mg/dL (8.4-10.2)
== END 2017-09-20 20:00 | disposition left against medical advice (07) ==
LOC: ED 12:52
DX: R07.9 Chest pain, unspecified (principal); Z53.21 Procedure and treatment not carried out due to patient leaving prior to being seen by health care provider
CPT/HCPCS: 36415; 80053; 84484; 85025; 93005; 93010

== ENCOUNTER 2017-10-09 18:10 | Inpatient (IN) | payer MEDICARE ==
[2017-10-10] MEDS ORDERED: BABY ASPIRIN PO ONE (02:32)
[2017-10-10] MEDS ORDERED: MORPHINE IM ONE (02:32)
[2017-10-10] MEDS ORDERED: ZOFRAN IM ONE (02:32)
--- NOTE | 2017-10-10 02:37 | Emergency Department Report ---
ED Chest Pain HPI - General Chief Complaint: Chest Pain Stated Complaint: ABDOMINAL PAIN Time Seen by Provider: 10/10/17 02:21 Source: patient Mode of arrival: Ambulatory Limitations: No Limitations - History of Present Illness Initial Comments: Patient is 67 years old female history of end-stage renal disease on hemodialysis, hypertension, congestive heart failure. Patient was just discharged from the hospital today for chest pain and abdominal pain. Patient stated that as soon as she got home she started having the same symptoms again. Describes her symptoms of chest pain tightness left upper chest and radiated down to her abdomen. Patient denied any shortness of breath, no nausea no vomiting no fever. MD Complaint: chest pain -: This evening Onset: during rest Pain Location: substernal Severity: moderate Quality: pressure Worsens With: nothing - Related Data Home Medications Medication Instructions Recorded Confirmed Last Taken Cinacalcet [Sensipar] 30 mg PO QDAY 09/27/17 10/10/17 10/09/17 L. Acidophilus/Bifid. Animalis 0.8 mg PO DAILY 09/27/17 10/10/17 10/09/17 [Dialyvite Chewable Probiotic] Pantoprazole [Protonix TAB] 40 mg PO BID 09/27/17 10/10/17 10/09/17 Sennosides [Senna Lax] 8.6 mg PO DAILY PRN 09/27/17 10/10/17 10/09/17 Previous Rx's Medication Instructions Recorded Last Taken Type Carvedilol [Coreg] 12.5 mg PO BID #60 tablet 06/27/17 10/09/17 Rx Clopidogrel [Plavix] 75 mg PO QDAY #30 tablet 06/27/17 10/09/17 Rx Dicyclomine [Bentyl] 10 mg PO TID PRN #30 capsule 09/13/17 10/09/17 Rx ISOSORBIDE MONOnitrate [Imdur ER] 120 mg PO QDAY #30 tablet 10/04/17 10/09/17 Rx Ondansetron [Zofran Odt] 4 mg PO Q8HR PRN #14 tab.rapdis 10/10/17 Unknown Rx traMADol [Ultram 50 MG tab] 50 mg PO Q4HR PRN #14 tablet 10/10/17 Unknown Rx Allergies Allergy/AdvReac Type Severity Reaction Status Date / Time No Known Allergies Allergy Verified 10/09/17 18:16 Heart Score - HEART Score History: Moderately suspicious EKG: Non-specific Age: > 65 Risk factors: > 3 risk factors or hx of atherosclerotic disease Troponin: < normal limit HEART Score: 6 - Critical Actions Critical Actions: 4-6 pts:12-16.6% risk of adverse cardiac event. Should be admitted ED Review of Systems ROS: Stated complaint: ABDOMINAL PAIN Other details as noted in HPI Comment: All other systems reviewed and negative Constitutional: denies: chills, fever Respiratory: denies: cough, orthopnea, shortness of breath, SOB with exertion, SOB at rest Cardiovascular: chest pain. denies: palpitations, dyspnea on exertion, orthopnea, edema, paroxysmal nocturnal dyspnea Gastrointestinal: abdominal pain. denies: nausea, vomiting, diarrhea, constipation Genitourinary: denies: urgency, hematuria ED Past Medical Hx - Past Medical History Hx Hypertension: Yes Hx CVA: Yes (x 2) Hx Heart Attack/AMI: Yes Hx Congestive Heart Failure: Yes Hx Diabetes: No Hx Deep Vein Thrombosis: No Hx GERD: No Hx Liver Disease: No Hx Renal Disease: No Hx Sickle Cell Disease: No Hx Arthritis: No Hx Headaches / Migraines: No Hx Seizures: No Hx Kidney Stones: No Hx Asthma: No Hx COPD: No Hx Tuberculosis: No Hx Dementia: No Hx HIV: No Additional medical history: enlarged heart, gout, LCH CORONARY ANGIOGRAPHY [place] 08/06/2017-NONOBSTRUCTING HEART PER DR GIDEON BENOIT - Surgical History Hx Coronary Stent: No Hx Open Heart Surgery: No Hx Pacemaker: No Hx Internal Defibrillator: No Hx Cholecystectomy: No Hx Appendectomy: No Hx Breast Surgery: No Additional Surgical History: tubal ligation, vas cath. LUE fistula. cardiac workup includes a stress test on 12/21/2016 that was unremarkable. Patient status post PCI of RCA with subsequent subacute thrombus of the proximal RCA stent and angioplasty with resolution of thrombosis on November 2016. AICD placement Aug 2017. PCI 03/22/17 of RCA. 05/01/17 neg Lexiscan stress - Social History Smoking Status: Current Every Day Smoker Substance Use Type: None - Medications Home Medications: Home Medications Medication Instructions Recorded Confirmed Last Taken Type Carvedilol [Coreg] 12.5 mg PO BID #60 tablet 06/27/17 10/10/17 10/09/17 Rx Clopidogrel [Plavix] 75 mg PO QDAY #30 tablet 06/27/17 10/10/17 10/09/17 Rx Dicyclomine [Bentyl] 10 mg PO TID PRN #30 capsule 09/13/17 10/10/17 10/09/17 Rx Cinacalcet [Sensipar] 30 mg PO QDAY 09/27/17 10/10/17 10/09/17 History L. Acidophilus/Bifid. Animalis 0.8 mg PO DAILY 09/27/17 10/10/17 10/09/17 History [Dialyvite Chewable Probiotic] Pantoprazole [Protonix TAB] 40 mg PO BID 09/27/17 10/10/17 10/09/17 History Sennosides [Senna Lax] 8.6 mg PO DAILY PRN 09/27/17 10/10/17 10/09/17 History ISOSORBIDE MONOnitrate [Imdur ER] 120 mg PO QDAY #30 tablet 10/04/17 10/10/17 Rx Ondansetron [Zofran Odt] 4 mg PO Q8HR PRN #14 tab.rapdis 10/10/17 Unknown Rx traMADol [Ultram 50 MG tab] 50 mg PO Q4HR PRN #14 tablet 10/10/17 Unknown Rx ED Physical Exam - General Limitations: No Limitations General appearance: alert, in no apparent distress - Head Head exam: Present: atraumatic, normocephalic, normal inspection - Eye Eye exam: Present: normal appearance - ENT ENT exam: Present: normal exam, normal orophraynx, mucous membranes moist - Neck Neck exam: Present: normal inspection, full ROM. Absent: tenderness, meningismus, lymphadenopathy - Respiratory Respiratory exam: Present: normal lung sounds bilaterally. Absent: respiratory distress, wheezes, rales, rhonchi, chest wall tenderness, accessory muscle use, decreased breath sounds, prolonged expiratory - Cardiovascular Cardiovascular Exam: Present: regular rate, normal rhythm, normal heart sounds - GI/Abdominal GI/Abdominal exam: Present: soft, normal bowel sounds. Absent: distended, tenderness, guarding, rebound, rigid, organomegaly, mass, bruit, pulsatile mass - Extremities Exam Extremities exam: Present: normal inspection, full ROM, normal capillary refill. Absent: tenderness, pedal edema, joint swelling, calf tenderness - Back Exam Back exam: Present: normal inspection. Absent: CVA tenderness (R), CVA tenderness (L), muscle spasm, paraspinal tenderness, vertebral tenderness - Neurological Exam Neurological exam: Present: alert, oriented X3, CN II-XII intact, normal gait - Skin Skin exam: Present: warm, intact, normal color. Absent: cyanosis, diaphoretic ED Course Vital Signs 10/09/17 10/10/17 10/10/17 18:16 02:54 03:00 Temperature 99 F Pulse Rate 90 Respiratory 20 Rate Blood Pressure 155/64 122/50 122/49 Blood Pressure [Right] O2 Sat by Pulse 100 Oximetry 10/10/17 10/10/17 10/10/17 03:07 03:15 03:30 Temperature Pulse Rate Respiratory 16 Rate Blood Pressure 132/49 133/43 Blood Pressure [Right] O2 Sat by Pulse Oximetry 10/10/17 10/10/17 10/10/17 03:45 04:00 04:15 Temperature Pulse Rate Respiratory Rate Blood Pressure 113/44 112/39 118/44 Blood Pressure [Right] O2 Sat by Pulse Oximetry 10/10/17 10/10/17 10/10/17 04:30 04:45 05:00 Temperature Pulse Rate Respiratory Rate Blood Pressure 125/48 114/54 119/55 Blood Pressure [Right] O2 Sat by Pulse Oximetry 10/10/17 10/10/17 10/10/17 05:15 05:30 05:46 Temperature Pulse Rate Respiratory Rate Blood Pressure 116/53 115/46 118/52 Blood Pressure [Right] O2 Sat by Pulse Oximetry 10/10/17 10/10/17 10/10/17 06:00 06:15 06:30 Temperature Pulse Rate Respiratory Rate Blood Pressure 118/52 120/44 118/47 Blood Pressure [Right] O2 Sat by Pulse Oximetry 10/10/17 10/10/17 10/10/17 06:45 08:50 08:53 Temperature 98.4 F Pulse Rate 80 Respiratory 18 18 Rate Blood Pressure 123/46 Blood Pressure 127/52 [Right] O2 Sat by Pulse Oximetry 10/10/17 10/10/17 10/10/17 11:54 14:09 17:39 Temperature Pulse Rate 88 90 89 Respiratory 17 19 Rate Blood Pressure Blood Pressure 138/53 152/61 170/73 [Right] O2 Sat by Pulse 100 Oximetry 10/10/17 10/10/17 10/10/17 18:45 19:00 19:28 Temperature 98.8 F Pulse Rate 75 71 70 Respiratory 16 Rate Blood Pressure 134/64 115/54 108/44 Blood Pressure [Right] O2 Sat by Pulse Oximetry 10/10/17 10/10/17 10/10/17 19:45 20:00 20:29 Temperature Pulse Rate 69 71 71 Respiratory Rate Blood Pressure 132/49 130/61 128/61 Blood Pressure [Right] O2 Sat by Pulse Oximetry 10/10/17 10/10/17 10/10/17 20:45 21:00 21:15 Temperature Pulse Rate 71 72 73 Respiratory Rate Blood Pressure 130/59 131/60 132/59 Blood Pressure [Right] O2 Sat by Pulse Oximetry 10/10/17 10/10/17 10/10/17 21:30 21:45 22:30 Temperature 98.5 F Pulse Rate 73 71 78 Respiratory 18 Rate Blood Pressure 139/62 134/60 130/61 Blood Pressure [Right] O2 Sat by Pulse Oximetry MONE score - Mone Score Age > 65: (1) Yes Aspirin use within the Past 7 Days: (1) Yes 3 or more CAD Risk Factors: (1) Yes 2 or more Angina events in past 24 hrs: (0) No Known CAD with more than 50% Stenosis: (1) Yes Elevated Cardiac Markers: (1) Yes ST Deviation Greater than 0.5mm: (0) No MONE Score: 5 ED Medical Decision Making - Lab Data Result diagrams: 10/10/17 03:12 10/10/17 12:19 - Medical Decision Making Patient care transfer to Dr Shea at 06:02 AM, pending the result of BMP. Critical care attestation.: If time is entered above; I have spent that time in minutes in the direct care of this critically ill patient, excluding procedure time. ED Disposition Clinical Impression: Abdominal pain, Chest pain, ESRD (end stage renal disease) on dialysis, ESRD ( end stage renal disease) Disposition: OP ADMIT IP TO THIS HOSP Is pt being admited?: Yes Condition: Stable
--- NOTE | 2017-10-10 02:47 | XRay Report ---
FINAL REPORT EXAM: XR CHEST 1V AP HISTORY: Chest Pain TECHNIQUE: A portable semi-erect view of the chest was obtained and compared the study of 10/07/2017. FINDINGS: The heart is markedly enlarged. The lungs are not congested. Pleural fluid is not seen. There are no localized infiltrates. There is a stable AICD projecting from the left infra diaphragmatic approach. The skeletal structures do not show any acute changes. IMPRESSION: Cardiomegaly. No acute process in the chest.
[2017-10-10 03:35] LABS: Basophils # (Auto) 0.1 K/mm3 (0.0-0.1); Basophils % (Auto) 1.1 % (0.0-1.8); Eosinophils # (Auto) 0.1 K/mm3 (0.0-0.4); Eosinophils % (Auto) 1.7 % (0.0-4.3); Hematocrit 33.1 % (30.3-42.9); Hemoglobin 10.7 gm/dl (10.1-14.3); Lymphocytes # (Auto) 1.3 K/mm3 (1.2-5.4); Lymphocytes % (Auto) 24.3 % (13.4-35.0); Mean Corpuscular HGB Conc 32 % (30-34); Mean Corpuscular Hemoglobin 28 pg (28-32); Mean Corpuscular Volume 87 fl (79-97); Monocytes # (Auto) 0.8 K/mm3 (0.0-0.8); Platelet Count 296 K/mm3 (140-440); Red Blood Count 3.79 M/mm3 (3.65-5.03); Red Cell Distribution Width 19.9 % (13.2-15.2)
[2017-10-10 04:11] LABS: BUN/Creatinine Ratio TNR; Blood Urea Nitrogen TNR mg/dL (7-17); Calcium TNR mg/dL (8.4-10.2)
[2017-10-10 04:12] LABS: Alanine Aminotransferase TNR units/L (7-56); Albumin TNR g/dL (3.9-5); Hemolysis Index TNR
[2017-10-10 06:57] LABS: Calcium 9.8 mg/dL (8.4-10.2)
[2017-10-10] MEDS ORDERED: PROVENTIL IH ONE (07:14)
[2017-10-10 07:16] LABS: Chol/HDL Ratio 2.67 %
[2017-10-10] MEDS ORDERED: SODIUM BICARBONATE IV ONE ×2 (07:30→09:11)
[2017-10-10] MEDS ORDERED: CALCIUM GLUCONATE 1,000 MG in NACL 0.9% 100 ML IV ONE (07:45)
[2017-10-10] MEDS ORDERED: NACL 0.9% 100 ML IV PRN (10:49)
[2017-10-10] MEDS ORDERED: PROCRIT IV PRN (10:49)
--- NOTE | 2017-10-10 11:49 | Emergency Department Report ---
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: Yes Hx Congestive Heart Failure: Yes Hx Diabetes: No Hx Deep Vein Thrombosis: No Hx GERD: No Hx Liver Disease: No Hx Renal Disease: No Hx Sickle Cell Disease: No Hx Arthritis: No Hx Headaches / Migraines: No Hx Seizures: No Hx Kidney Stones: No Hx Asthma: No Hx COPD: No Hx Tuberculosis: No Hx Dementia: No Hx HIV: No Additional medical history: enlarged heart, gout, LCH CORONARY ANGIOGRAPHY [place] 08/06/2017-NONOBSTRUCTING HEART PER DR GIDEON BENOIT - Surgical History Hx Coronary Stent: No Hx Open Heart Surgery: No Hx Pacemaker: No Hx Internal Defibrillator: No Hx Cholecystectomy: No Hx Appendectomy: No Hx Breast Surgery: No Additional Surgical History: tubal ligation, vas cath. LUE fistula. cardiac workup includes a stress test on 12/21/2016 that was unremarkable. Patient status post PCI of RCA with subsequent subacute thrombus of the proximal RCA stent and angioplasty with resolution of thrombosis on November 2016. AICD placement Aug 2017. PCI 03/22/17 of RCA. 05/01/17 neg Lexiscan stress - Social History Smoking Status: Current Every Day Smoker Substance Use Type: None - Medications Home Medications: Home Medications Medication Instructions Recorded Confirmed Last Taken Type Carvedilol [Coreg] 12.5 mg PO BID #60 tablet 06/27/17 10/08/17 1 Day Ago Rx ~10/07/17 Clopidogrel [Plavix] 75 mg PO QDAY #30 tablet 06/27/17 10/08/17 1 Day Ago Rx ~10/07/17 Dicyclomine [Bentyl] 10 mg PO TID PRN #30 capsule 09/13/17 10/08/17 1 Day Ago Rx ~10/07/17 Cinacalcet [Sensipar] 30 mg PO QDAY 09/27/17 10/08/17 1 Day Ago History ~10/07/17 L. Acidophilus/Bifid. Animalis 0.8 mg PO DAILY 09/27/17 10/08/17 1 Day Ago History [Dialyvite Chewable Probiotic] ~10/07/17 Pantoprazole [Protonix TAB] 40 mg PO BID 09/27/17 10/08/17 1 Day Ago History ~10/07/17 Sennosides [Senna Lax] 8.6 mg PO DAILY PRN 09/27/17 10/08/17 1 Day Ago History ~10/07/17 ISOSORBIDE MONOnitrate [Imdur ER] 120 mg PO QDAY #30 tablet 10/04/17 10/08/17 1 Day Ago Rx ~10/07/17 Ondansetron [Zofran Odt] 4 mg PO Q8HR PRN #14 tab.rapdis 10/10/17 Unknown Rx traMADol [Ultram 50 MG tab] 50 mg PO Q4HR PRN #14 tablet 10/10/17 Unknown Rx ED Review of Systems ROS: Stated complaint: ABDOMINAL PAIN Other details as noted in HPI Constitutional: denies: chills, fever Respiratory: denies: cough, orthopnea, shortness of breath, SOB with exertion, SOB at rest Cardiovascular: chest pain. denies: palpitations, dyspnea on exertion, orthopnea, edema, paroxysmal nocturnal dyspnea Gastrointestinal: abdominal pain. denies: nausea, vomiting, diarrhea, constipation Genitourinary: denies: urgency, hematuria Physical Exam - Physical Exam Vital Signs: Vital Signs 10/09/17 10/10/17 10/10/17 18:16 02:54 03:00 Temperature 99 F Pulse Rate 90 Respiratory 20 Rate Blood Pressure 155/64 122/50 122/49 Blood Pressure [Right] O2 Sat by Pulse 100 Oximetry 10/10/17 10/10/17 10/10/17 03:07 03:15 03:30 Temperature Pulse Rate Respiratory 16 Rate Blood Pressure 132/49 133/43 Blood Pressure [Right] O2 Sat by Pulse Oximetry 10/10/17 10/10/17 10/10/17 03:45 04:00 04:15 Temperature Pulse Rate Respiratory Rate Blood Pressure 113/44 112/39 118/44 Blood Pressure [Right] O2 Sat by Pulse Oximetry 10/10/17 10/10/17 10/10/17 04:30 04:45 05:00 Temperature Pulse Rate Respiratory Rate Blood Pressure 125/48 114/54 119/55 Blood Pressure [Right] O2 Sat by Pulse Oximetry 10/10/17 10/10/17 10/10/17 05:15 05:30 05:46 Temperature Pulse Rate Respiratory Rate Blood Pressure 116/53 115/46 118/52 Blood Pressure [Right] O2 Sat by Pulse Oximetry 10/10/17 10/10/17 10/10/17 06:00 06:15 06:30 Temperature Pulse Rate Respiratory Rate Blood Pressure 118/52 120/44 118/47 Blood Pressure [Right] O2 Sat by Pulse Oximetry 10/10/17 10/10/17 10/10/17 06:45 08:50 08:53 Temperature 98.4 F Pulse Rate 80 Respiratory 18 18 Rate Blood Pressure 123/46 Blood Pressure 127/52 [Right] O2 Sat by Pulse Oximetry ED Course Vital Signs 10/09/17 10/10/17 10/10/17 18:16 02:54 03:00 Temperature 99 F Pulse Rate 90 Respiratory 20 Rate Blood Pressure 155/64 122/50 122/49 Blood Pressure [Right] O2 Sat by Pulse 100 Oximetry 10/10/17 10/10/17 10/10/17 03:07 03:15 03:30 Temperature Pulse Rate Respiratory 16 Rate Blood Pressure 132/49 133/43 Blood Pressure [Right] O2 Sat by Pulse Oximetry 10/10/17 10/10/17 10/10/17 03:45 04:00 04:15 Temperature Pulse Rate Respiratory Rate Blood Pressure 113/44 112/39 118/44 Blood Pressure [Right] O2 Sat by Pulse Oximetry 10/10/17 10/10/17 10/10/17 04:30 04:45 05:00 Temperature Pulse Rate Respiratory Rate Blood Pressure 125/48 114/54 119/55 Blood Pressure [Right] O2 Sat by Pulse Oximetry 10/10/17 10/10/17 10/10/17 05:15 05:30 05:46 Temperature Pulse Rate Respiratory Rate Blood Pressure 116/53 115/46 118/52 Blood Pressure [Right] O2 Sat by Pulse Oximetry 10/10/17 10/10/17 10/10/17 06:00 06:15 06:30 Temperature Pulse Rate Respiratory Rate Blood Pressure 118/52 120/44 118/47 Blood Pressure [Right] O2 Sat by Pulse Oximetry 10/10/17 10/10/17 10/10/17 06:45 08:50 08:53 Temperature 98.4 F Pulse Rate 80 Respiratory 18 18 Rate Blood Pressure 123/46 Blood Pressure 127/52 [Right] O2 Sat by Pulse Oximetry ED Medical Decision Making - Lab Data Result diagrams: 10/10/17 03:12 10/10/17 12:19 - Medical Decision Making I was asked by my colleague to follow up BMP results whiched reveals elevated K 6.2. Troponin elevation is being attributed to renal insufficiency. She does not have any signs or indication of ACS. She has had extensive evaluation for recurring chest and abdominal pain. Dr. Cooper recommended dialysis in ED which would required admission. Dr Rooney hospitalist felt patient would be best served in dialysis clinic. I have treated Ms. Molina will sodium bicarbonate, calcium gluconate and albuterol. Repeat potassium still elevated. Dr. Rooney will admit for hemodialysis Critical care attestation.: If time is entered above; I have spent that time in minutes in the direct care of this critically ill patient, excluding procedure time. ED Disposition Clinical Impression: Abdominal pain, Chest pain, ESRD (end stage renal disease) on dialysis, ESRD ( end stage renal disease) Disposition: DC-01 TO HOME OR SELFCARE Is pt being admited?: Yes Does the pt Need Aspirin: No Condition: Stable Instructions: Chest Pain (ED), Abdominal Pain (ED) Prescriptions: Ondansetron [Zofran Odt] 4 mg PO Q8HR PRN #14 tab.rapdis PRN Reason: Nausea And Vomiting traMADol [Ultram 50 MG tab] 50 mg PO Q4HR PRN #14 tablet PRN Reason: Pain Referrals: CON VALDES MD [Primary Care Provider] - 3-5 Days
[2017-10-10] MEDS ORDERED: PROCRIT ONE (20:24)
[2017-10-10] MEDS ORDERED: NACL 0.9 (PRIMING MACHINE ONLY DIALYSIS) MC ONE (20:24)
[2017-10-10] MEDS ORDERED: ZOFRAN IV PRN (20:46)
[2017-10-10] MEDS ORDERED: DULCOLAX PR PRN (20:46)
[2017-10-10] MEDS ORDERED: TYLENOL PO PRN (20:46)
[2017-10-10] MEDS ORDERED: MILK OF MAGNESIA PO PRN (20:46)
--- NOTE | 2017-10-10 21:01 | History and Physical Report ---
CHIEF COMPLAINT: Left-sided chest pain. HISTORY OF PRESENT ILLNESS: A 67-year-old -Iranian female with a recent diagnosis of end-stage renal disease, hypertension, hemodialysis, ____ discharged yesterday after being treated for chest pain and abdominal pain. The patient has recurrent admissions for abdominal pain and chest pain, were nonspecific. No radiation. Pain is about 5 on a scale of 1-10. Her symptom of chest pain is not convincing. No diaphoresis, no palpitations. PAST MEDICAL HISTORY: Significant for end-stage renal disease, hypertension, coronary artery disease. Multiple stress tests were done in the past. Also, has a coronary angiography on 08/06/2017, nonobstructing results, gout and enlarged heart. PAST SURGICAL HISTORY: Positive for tubal ligation, Vas-Cath, left upper extremity fistula. Stress test on 12/21/2016, PCI of RCA on 09/05/2016. AICD placement 09/05/2017, PCI on 03/22/2017, and 05/01/2017 negative Lexiscan. SOCIAL HISTORY: Smokes over a pack a day. No marijuana or alcohol. FAMILY HISTORY: Significant for hypertension. REVIEW OF SYSTEMS: Significant for chest pain. Otherwise, review of systems negative. No shortness of breath, no palpitations. PHYSICAL EXAMINATION: GENERAL: Elderly female, cooperative during examination, lying comfortably, not in any pain. VITAL SIGNS: Blood pressure 115/54, temperature is 98, respirations are 16, pulse is 71. HEENT: Unremarkable. Pupils are equal and reactive. NECK: Supple, no lymphadenopathy, no thyromegaly. LUNGS: Clear to auscultation and percussion. Good air entry. CARDIOVASCULAR: S1, S2 heard. No gallop, no murmur, no rub. Apical impulse in left fifth intercostal space and midclavicular line. ABDOMEN: Soft and benign. Bowel sounds are normal. EXTREMITIES: Good pedal pulses. No pedal edema. CENTRAL NERVOUS SYSTEM: Alert and oriented x 4, nonfocal exam. LABORATORY DATA: Potassium was 6.2, repeat potassium is 5.7. Troponin is 0.0258. Otherwise, labs are normal. Sodium is 143. Albumin is 3.0. ASSESSMENT AND PLAN: 1. End-stage renal disease, needing dialysis. The patient to have dialysis today for volume overload. 2. Volume overload. Continue dialysis today and discharge. 3. Hyperkalemia, being treated in the Emergency Room and dialysis. 4. Hypertension. Continue antihypertensives. 5. Coronary artery disease. Continue aspirin and Plavix 6. End-stage renal disease. Continue Sensipar. 7. Deep venous thrombosis prophylaxis, heparin. 8. Social issues. The patient feels lonely and comes to the hospital frequently. Needs outpatient psych eval and psychiatric counseling. JOB# [id number] CHRISTOPHER/NTS
[2017-10-11 01:49] VITALS: BP 130/61
== END 2017-10-10 23:00 | disposition home or self-care (01) | DRG 291 ==
LOC: ED 18:10 → 4A 10-10 14:41
PROVIDERS: ADMIT Internal Medicine; ATTEND Internal Medicine
PROC: 5A1D70Z Performance of Urinary Filtration, Intermittent, Less than 6 Hours Per Day (ICD-10-PCS; principal; 2017-10-10)
DX: I13.2 Hypertensive heart and chronic kidney disease with heart failure and with stage 5 chronic kidney disease, or end stage renal disease (principal); N18.6 End stage renal disease; I50.9 Heart failure, unspecified; E87.5 Hyperkalemia; F17.200 Nicotine dependence, unspecified, uncomplicated; I25.10 Atherosclerotic heart disease of native coronary artery without angina pectoris; M10.9 Gout, unspecified; Z86.73 Personal history of transient ischemic attack (TIA), and cerebral infarction without residual deficits; I25.2 Old myocardial infarction; Z95.828 Presence of other vascular implants and grafts; Z98.51 Tubal ligation status; Z95.810 Presence of automatic (implantable) cardiac defibrillator; Z98.61 Coronary angioplasty status; Z88.6 Allergy status to analgesic agent; Z79.899 Other long term (current) drug therapy; Z99.2 Dependence on renal dialysis; Z83.3 Family history of diabetes mellitus
CPT/HCPCS: 36415; 71045; 80053; 80061; 84132; 84484; 85025; 93005; 93010; 94640; 96372; 96374; 96375; J0610; J0885; J2270; J2405; J7030

== ENCOUNTER 2017-10-12 02:33 | Emergency (ER) | payer MEDICARE ==
[2017-10-12] MEDS ORDERED: ASPIRIN PO ONE (02:48)
[2017-10-12 04:24] LABS: Basophils % (Auto) 0.9 % (0.0-1.8); Eosinophils # (Auto) 0.1 K/mm3 (0.0-0.4); Eosinophils % (Auto) 1.4 % (0.0-4.3); Hematocrit 34.8 % (30.3-42.9); Hemoglobin 10.8 gm/dl (10.1-14.3); Lymphocytes # (Auto) 1.2 K/mm3 (1.2-5.4); Lymphocytes % (Auto) 26.4 % (13.4-35.0); Mean Corpuscular HGB Conc 31 % (30-34); Mean Corpuscular Hemoglobin 28 pg (28-32); Mean Corpuscular Volume 89 fl (79-97); Monocytes # (Auto) 0.7 K/mm3 (0.0-0.8); Monocytes % (Auto) 14.4 % (0.0-7.3); Platelet Count 267 K/mm3 (140-440); Red Blood Count 3.91 M/mm3 (3.65-5.03); Red Cell Distribution Width 19.8 % (13.2-15.2)
[2017-10-12 04:28] VITALS: BP 151/71
[2017-10-12 04:33] LABS: Calcium 9.2 mg/dL (8.4-10.2)
--- NOTE | 2017-10-12 06:27 | Emergency Department Report ---
ED Chest Pain HPI - General Chief Complaint: Chest Pain Stated Complaint: CHEST PAIN Time Seen by Provider: 10/12/17 06:12 Source: patient, EMS Mode of arrival: Stretcher Limitations: No Limitations - History of Present Illness MD Complaint: chest pain -: Sudden, hour(s) (3) Onset: during rest Pain Location: left chest Pain Radiation: none Severity: severe Quality: sharp Consistency: now resolved Improves With: nothing Worsens With: nothing Context: other (several recent hospitalizations and ED visits) - Related Data Home Medications Medication Instructions Recorded Confirmed Last Taken Cinacalcet [Sensipar] 30 mg PO QDAY 09/27/17 10/12/17 10/11/17 L. Acidophilus/Bifid. Animalis 0.8 mg PO DAILY 09/27/17 10/12/17 10/11/17 [Dialyvite Chewable Probiotic] Pantoprazole [Protonix TAB] 40 mg PO BID 09/27/17 10/12/17 10/11/17 Sennosides [Senna Lax] 8.6 mg PO DAILY PRN 09/27/17 10/12/17 10/11/17 Previous Rx's Medication Instructions Recorded Last Taken Type Carvedilol [Coreg] 12.5 mg PO BID #60 tablet 06/27/17 10/11/17 Rx Clopidogrel [Plavix] 75 mg PO QDAY #30 tablet 06/27/17 10/11/17 Rx Dicyclomine [Bentyl] 10 mg PO TID PRN #30 capsule 09/13/17 10/11/17 Rx ISOSORBIDE MONOnitrate [Imdur ER] 120 mg PO QDAY #30 tablet 10/04/17 10/11/17 Rx Ondansetron [Zofran Odt] 4 mg PO Q8HR PRN #14 tab.rapdis 10/10/17 10/11/17 Rx traMADol [Ultram 50 MG tab] 50 mg PO Q4HR PRN #14 tablet 10/10/17 10/11/17 Rx Allergies Allergy/AdvReac Type Severity Reaction Status Date / Time No Known Allergies Allergy Verified 10/09/17 18:16 Heart Score - HEART Score History: Slightly suspicious EKG: Non-specific Age: > 65 Risk factors: > 3 risk factors or hx of atherosclerotic disease Troponin: 1-3x normal limit HEART Score: 6 ED Review of Systems ROS: Stated complaint: CHEST PAIN Other details as noted in HPI Comment: All other systems reviewed and negative Constitutional: denies: chills, fever, malaise Respiratory: denies: cough, orthopnea Cardiovascular: chest pain. denies: palpitations ED Past Medical Hx - Past Medical History Previous Medical History?: Yes Hx Hypertension: Yes Hx CVA: Yes (x 2) Hx Heart Attack/AMI: Yes Hx Congestive Heart Failure: Yes Hx Diabetes: No Hx Deep Vein Thrombosis: No Hx GERD: No Hx Liver Disease: No Hx Renal Disease: No Hx Sickle Cell Disease: No Hx Arthritis: No Hx Headaches / Migraines: No Hx Seizures: No Hx Kidney Stones: No Hx Asthma: No Hx COPD: No Hx Tuberculosis: No Hx Dementia: No Hx HIV: No Additional medical history: enlarged heart, gout, L[facility] CORONARY ANGIOGRAPHY [place] 08/06/2017-NONOBSTRUCTING HEART PER DR GIDEON BENOIT - Surgical History Past Surgical History?: Yes Hx Coronary Stent: No Hx Open Heart Surgery: No Hx Pacemaker: No Hx Internal Defibrillator: No Hx Cholecystectomy: No Hx Appendectomy: No Hx Breast Surgery: No Additional Surgical History: tubal ligation, vas cath. LUE fistula. cardiac workup includes a stress test on 12/21/2016 that was unremarkable. Patient status post PCI of RCA with subsequent subacute thrombus of the proximal RCA stent and angioplasty with resolution of thrombosis on November 2016. AICD placement Aug 2017. PCI 03/22/17 of RCA. 05/01/17 neg Lexiscan stress - Social History Smoking Status: Never Smoker Substance Use Type: Prescribed - Medications Home Medications: Home Medications Medication Instructions Recorded Confirmed Last Taken Type Carvedilol [Coreg] 12.5 mg PO BID #60 tablet 06/27/17 10/12/17 10/11/17 Rx Clopidogrel [Plavix] 75 mg PO QDAY #30 tablet 06/27/17 10/12/17 10/11/17 Rx Dicyclomine [Bentyl] 10 mg PO TID PRN #30 capsule 09/13/17 10/12/17 10/11/17 Rx Cinacalcet [Sensipar] 30 mg PO QDAY 09/27/17 10/12/17 10/11/17 History L. Acidophilus/Bifid. Animalis 0.8 mg PO DAILY 09/27/17 10/12/1710/11/18 History [Dialyvite Chewable Probiotic] Pantoprazole [Protonix TAB] 40 mg PO BID 09/27/17 10/12/17 10/11/17 History Sennosides [Senna Lax] 8.6 mg PO DAILY PRN 09/27/17 10/12/17 10/11/17 History ISOSORBIDE MONOnitrate [Imdur ER] 120 mg PO QDAY #30 tablet 10/04/17 10/12/17 Rx Ondansetron [Zofran Odt] 4 mg PO Q8HR PRN #14 tab.rapdis 10/10/17 10/12/1710/11 Rx traMADol [Ultram 50 MG tab] 50 mg PO Q4HR PRN #14 tablet 10/10/17 10/12/1710/11 Rx ED Physical Exam - General Limitations: No Limitations General appearance: alert, in no apparent distress - Head Head exam: Present: atraumatic, normocephalic - Eye Eye exam: Present: normal appearance - ENT ENT exam: Present: mucous membranes moist - Neck Neck exam: Present: normal inspection - Respiratory Respiratory exam: Present: normal lung sounds bilaterally. Absent: respiratory distress, wheezes, rales, rhonchi - Cardiovascular Cardiovascular Exam: Present: regular rate, normal rhythm, normal heart sounds. Absent: systolic murmur, diastolic murmur, rubs, gallop - GI/Abdominal GI/Abdominal exam: Present: soft, normal bowel sounds. Absent: distended, tenderness, guarding, rebound - Extremities Exam Extremities exam: Present: normal inspection - Back Exam Back exam: Present: normal inspection - Neurological Exam Neurological exam: Present: alert, oriented X3 - Psychiatric Psychiatric exam: Present: normal mood, other (odd affect, ) - Skin Skin exam: Present: warm, dry, intact, normal color. Absent: rash ED Course Vital Signs 10/12/17 10/12/17 10/12/17 03:00 03:01 04:00 Temperature 97.9 F Pulse Rate 89 92 H Respiratory 18 18 20 Rate Blood Pressure 156/75 151/71 Blood Pressure 156/75 [Right] O2 Sat by Pulse 97 Oximetry MONE score - Mone Score Age > 65: (1) Yes Aspirin use within the Past 7 Days: (1) Yes 3 or more CAD Risk Factors: (1) Yes 2 or more Angina events in past 24 hrs: (0) No Known CAD with more than 50% Stenosis: (1) Yes Elevated Cardiac Markers: (1) Yes ST Deviation Greater than 0.5mm: (0) No MONE Score: 5 ED Medical Decision Making - Lab Data Result diagrams: 10/12/17 04:02 10/12/17 04:02 Laboratory Results - last 24 hr 10/12/17 10/12/17 04:02 04:02 WBC 4.6 RBC 3.91 Hgb 10.8 Hct 34.8 MCV 89 MCH 28 MCHC 31 RDW 19.8 H Plt Count 267 Lymph % (Auto) 26.4 [place] % (Auto) 14.4 H Eos % (Auto) 1.4 Baso % (Auto) 0.9 Lymph # 1.2 [place] # 0.7 Eos # 0.1 Baso # 0.0 Seg Neutrophils % 56.9 Seg Neutrophils # 2.6 Sodium 136 L Potassium 5.3 H Chloride 93.6 L Carbon Dioxide 25 Anion Gap 23 BUN 56 H Creatinine 6.0 H Estimated GFR 8 BUN/Creatinine Ratio 9 Glucose 82 Calcium 9.2 Troponin T 0.177 H* D - EKG Data 10/12/17 06:22 G obtained at 316 Normal sinus rhythm rate of 85 normal axis prolonged QT interval LVH with repolarization abnormality nop acute signs of ischemia - Medical Decision Making I had a pleasure taking care of Ms. Molina on recent ED visit 2 days ago. She was hospitalized for need of dialysis with elevated potassium. Today she presents with chest pain. After being in the ER for several hours today, she states "I'm fine now.". She states that she is quite frustrated with recurrent chest pain although she has had several hospitalizations and ED visits for chest pain evaluation. In July she underwent cardiac catheterization that did not reveal any obstructive disease of the coronary arteries. I reviewed recent several discharge summaries in August and September. She appears to have recurrent chest pain and abdominal pain. Today, no indication of emergent causes of chest pain such as pulmonary embolism, dissection nor ACS. Again she states that she is symptom-free at this point. I am concerned for depression or dementia. 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 She does have a son that appears to be supportive according to her history. Her troponin level is actually decreased from her previous ED visit. Potassium 5.3 is appropriate for discharge in a patient with end-stage renal disease dependent on dialysis. She stated that she will go to dialysis today. Our nursing staff will arrange for transportation home. Critical care attestation.: If time is entered above; I have spent that time in minutes in the direct care of this critically ill patient, excluding procedure time. ED Disposition Clinical Impression: End stage renal disease Chest pain Qualifiers: Chest pain type: unspecified Qualified Code(s): R07.9 - Chest pain, unspecified Disposition: DC-01 TO HOME OR SELFCARE Is pt being admited?: No Does the pt Need Aspirin: No Condition: Good Instructions: Chest Pain (ED) Referrals: CON VALDES MD [Primary Care Provider] - 3-5 Days
== END 2017-10-12 06:36 | disposition home or self-care (01) ==
LOC: ED 02:33
DX: R07.9 Chest pain, unspecified (principal); I12.0 Hypertensive chronic kidney disease with stage 5 chronic kidney disease or end stage renal disease; N18.6 End stage renal disease
CPT/HCPCS: 36415; 80048; 84484; 85025; 93005; 93010

== ENCOUNTER 2017-10-21 00:38 | Emergency (ER) | payer MEDICARE ==
[2017-10-21 05:17] VITALS: BP 145/67
== END 2017-10-21 10:30 | disposition left against medical advice (07) ==
LOC: ED 00:38
DX: R07.89 Other chest pain (principal); Z53.21 Procedure and treatment not carried out due to patient leaving prior to being seen by health care provider
CPT/HCPCS: 93005; 93010

== ENCOUNTER 2017-11-09 03:14 | Emergency (ER) | payer MEDICARE ==
[2017-11-09] MEDS ORDERED: ASPIRIN PO ONE (04:37)
[2017-11-09 04:53] LABS: Basophils % (Auto) 0.5 % (0.0-1.8); Eosinophils # (Auto) 0.1 K/mm3 (0.0-0.4); Hemoglobin 9.6 gm/dl (10.1-14.3); Lymphocytes # (Auto) 1.4 K/mm3 (1.2-5.4); Lymphocytes % (Auto) 30.8 % (13.4-35.0); Mean Corpuscular HGB Conc 33 % (30-34); Mean Corpuscular Hemoglobin 28 pg (28-32); Mean Corpuscular Volume 85 fl (79-97); Monocytes # (Auto) 0.6 K/mm3 (0.0-0.8); Monocytes % (Auto) 13.2 % (0.0-7.3); Platelet Count 268 K/mm3 (140-440); Red Blood Count 3.43 M/mm3 (3.65-5.03)
[2017-11-09 04:59] LABS: Red Cell Distribution Width 20.7 % (13.2-15.2)
[2017-11-09 05:12] LABS: Calcium 9.4 mg/dL (8.4-10.2)
[2017-11-09 06:49] VITALS: BP 159/63
--- NOTE | 2017-11-09 06:58 | Emergency Department Report ---
ED Chest Pain HPI - General Chief Complaint: Chest Pain Stated Complaint: HEADACHE Time Seen by Provider: 11/09/17 06:07 Source: patient Mode of arrival: Ambulatory Limitations: No Limitations - History of Present Illness Initial Comments: Mrs. Molina has hx of CAD, angina and ESRD. She has had several recent ED visits and hospitalizations for chest pain and need for dialysis. She has nondescript chest pain and abdominal pain, moderate in severity. She is very pleasant. HOwever, she is noncompliant with medical therapy or consistent dialysis. MD Complaint: chest pain -: Gradual, days(s) (several days) Onset: during rest Pain Location: substernal, left chest Pain Radiation: none Severity scale (0 -10): 0 Quality: tightness Consistency: constant Improves With: nothing Worsens With: nothing - Related Data Home Medications Medication Instructions Recorded Confirmed Last Taken Cinacalcet [Sensipar] 60 mg PO QDAY 09/27/17 11/05/17 10/11/17 Sennosides [Senna Lax] 8.6 mg PO DAILY PRN 09/27/17 11/05/17 10/11/17 ISOSORBIDE MONOnitrate [Imdur ER] 30 mg PO QDAY 10/14/17 11/05/17 Unknown Carvedilol 12.5 mg PO BID 11/05/17 11/05/17 Unknown Cinacalcet [Sensipar] 30 mg PO DAILY 11/05/17 11/05/17 Unknown Clopidogrel Bisulfate [Clopidogrel] 75 mg PO DAILY 11/05/17 11/05/17 Unknown Dialyvite 800 Plus D Wafer 800 mg PO DAILY 11/05/17 11/05/17 Unknown ISOSORBIDE MONOnitrate [Imdur ER] 30 mg PO DAILY 11/05/17 11/05/17 Unknown Pantoprazole Sodium 40 mg PO DAILY 11/05/17 11/05/17 Unknown Previous Rx's Medication Instructions Recorded Last Taken Type Carvedilol [Coreg] 12.5 mg PO BID #60 tablet 06/27/17 10/11/17 Rx Clopidogrel [Plavix] 75 mg PO QDAY #30 tablet 06/27/17 10/11/17 Rx Dicyclomine [Bentyl] 10 mg PO TID PRN #30 capsule 09/13/17 10/11/17 Rx Atorvastatin Calcium [Lipitor] 40 mg PO DAILY #30 tablet 11/06/17 Unknown Rx oxyCODONE /ACETAMINOPHEN [Percocet 1 tab PO QHS PRN #7 tablet 11/06/17 Unknown Rx 5/325 mg] Allergies Allergy/AdvReac Type Severity Reaction Status Date / Time No Known Allergies Allergy Verified 10/21/17 05:14 Heart Score - HEART Score History: Slightly suspicious EKG: Non-specific Age: > 65 Risk factors: > 3 risk factors or hx of atherosclerotic disease Troponin: 1-3x normal limit HEART Score: 6 ED Review of Systems ROS: Stated complaint: HEADACHE Other details as noted in HPI Comment: All other systems reviewed and negative Constitutional: denies: fever, malaise Respiratory: denies: cough Cardiovascular: chest pain Gastrointestinal: abdominal pain ED Past Medical Hx - Past Medical History Previous Medical History?: Yes Hx Hypertension: Yes Hx CVA: Yes (x 2) Hx Heart Attack/AMI: Yes Hx Congestive Heart Failure: Yes Hx Diabetes: No Hx Deep Vein Thrombosis: No Hx GERD: No Hx Liver Disease: No Hx Renal Disease: Yes (Dialysis MWF) Hx Sickle Cell Disease: No Hx Arthritis: No Hx Headaches / Migraines: No Hx Seizures: No Hx Kidney Stones: No Hx Asthma: No Hx COPD: No Hx Tuberculosis: No Hx Dementia: No Hx HIV: No Additional medical history: enlarged heart, gout, LCH CORONARY ANGIOGRAPHY ARMADA 08/06/2017-NONOBSTRUCTING HEART PER DR GIDEON BENOIT - Surgical History Past Surgical History?: Yes Hx Coronary Stent: No Hx Open Heart Surgery: No Hx Pacemaker: No Hx Internal Defibrillator: No Hx Cholecystectomy: No Hx Appendectomy: No Hx Breast Surgery: No Additional Surgical History: tubal ligation, vas cath. LUE fistula. cardiac workup includes a stress test on 12/21/2016 that was unremarkable. Patient status post PCI of RCA with subsequent subacute thrombus of the proximal RCA stent and angioplasty with resolution of thrombosis on November 2016. AICD placement Aug 2017. PCI 03/22/17 of RCA. 05/01/17 neg Lexiscan stress - Social History Smoking Status: Former Smoker Substance Use Type: None - Medications Home Medications: Home Medications Medication Instructions Recorded Confirmed Last Taken Type Carvedilol [Coreg] 12.5 mg PO BID #60 tablet 06/27/17 11/05/17 10/11/17 Rx Clopidogrel [Plavix] 75 mg PO QDAY #30 tablet 06/27/17 11/05/17 10/11/17 Rx Dicyclomine [Bentyl] 10 mg PO TID PRN #30 capsule 09/13/17 11/05/17 10/11/17 Rx Cinacalcet [Sensipar] 60 mg PO QDAY 09/27/17 11/05/17 10/11/17 History Sennosides [Senna Lax] 8.6 mg PO DAILY PRN 09/27/17 11/05/17 10/11/17 History ISOSORBIDE MONOnitrate [Imdur ER] 30 mg PO QDAY 10/14/17 11/05/17 Unknown History Carvedilol 12.5 mg PO BID 11/05/17 11/05/17 Unknown History Cinacalcet [Sensipar] 30 mg PO DAILY 11/05/17 11/05/17 Unknown History Clopidogrel Bisulfate [Clopidogrel] 75 mg PO DAILY 11/05/17 11/05/17 Unknown History Dialyvite 800 Plus D Wafer 800 mg PO DAILY 11/05/17 11/05/17 Unknown History ISOSORBIDE MONOnitrate [Imdur ER] 30 mg PO DAILY 11/05/17 11/05/17 Unknown History Pantoprazole Sodium 40 mg PO DAILY 11/05/17 11/05/17 Unknown History Atorvastatin Calcium [Lipitor] 40 mg PO DAILY #30 tablet 11/06/17 Unknown Rx oxyCODONE /ACETAMINOPHEN [Percocet 1 tab PO QHS PRN #7 tablet 11/06/17 Unknown Rx 5/325 mg] ED Physical Exam - General Limitations: No Limitations General appearance: alert, in no apparent distress, other (appears comfortable) - Head Head exam: Present: atraumatic, normocephalic - Eye Eye exam: Present: normal appearance - ENT ENT exam: Present: mucous membranes moist - Neck Neck exam: Present: normal inspection. Absent: tenderness, meningismus - Respiratory Respiratory exam: Present: normal lung sounds bilaterally. Absent: respiratory distress, wheezes, rales, rhonchi - Cardiovascular Cardiovascular Exam: Present: regular rate, normal rhythm. Absent: bradycardia , tachycardia, normal heart sounds, systolic murmur, diastolic murmur, rubs, gallop - GI/Abdominal GI/Abdominal exam: Present: soft, normal bowel sounds. Absent: distended, tenderness, guarding, rebound, rigid - Extremities Exam Extremities exam: Present: normal inspection - Back Exam Back exam: Present: normal inspection - Neurological Exam Neurological exam: Present: alert, oriented X3 - Psychiatric Psychiatric exam: Present: normal affect, normal mood - Skin Skin exam: Present: warm, dry, intact, normal color. Absent: rash ED Course Vital Signs 11/09/17 11/09/17 11/09/17 04:29 05:21 05:30 Temperature 98.9 F 98 F Pulse Rate 85 70 80 Respiratory 20 18 15 Rate Blood Pressure 142/60 Blood Pressure 143/65 [Left] O2 Sat by Pulse 100 99 Oximetry 11/09/17 11/09/17 11/09/17 05:45 06:00 06:15 Temperature Pulse Rate 77 78 78 Respiratory 13 22 16 Rate Blood Pressure 151/58 153/46 155/59 Blood Pressure [Left] O2 Sat by Pulse 100 99 99 Oximetry 11/09/17 11/09/17 06:30 06:45 Temperature Pulse Rate 81 82 Respiratory 36 H 14 Rate Blood Pressure 155/59 159/63 Blood Pressure [Left] O2 Sat by Pulse 97 97 Oximetry JACQUES score - Jacques Score Age > 65: (1) Yes Aspirin use within the Past 7 Days: (1) Yes 3 or more CAD Risk Factors: (1) Yes 2 or more Angina events in past 24 hrs: (0) No Known CAD with more than 50% Stenosis: (1) Yes Elevated Cardiac Markers: (1) Yes ST Deviation Greater than 0.5mm: (0) No JACQUES Score: 5 ED Medical Decision Making - Lab Data Result diagrams: 11/09/17 04:38 11/09/17 04:38 Laboratory Results - last 24 hr 11/09/17 11/09/17 04:38 04:38 WBC 4.5 RBC 3.43 L Hgb 9.6 L Hct 29.0 L MCV 85 MCH 28 MCHC 33 RDW 20.7 H Plt Count 268 Lymph % (Auto) 30.8 [place] % (Auto) 13.2 H Eos % (Auto) 2.0 Baso % (Auto) 0.5 Lymph # 1.4 [place] # 0.6 Eos # 0.1 Baso # 0.0 Seg Neutrophils % 53.5 Seg Neutrophils # 2.4 Sodium 142 Potassium 4.5 Chloride 97.6 L Carbon Dioxide 31 H Anion Gap 18 BUN 32 H Creatinine 5.8 H Estimated GFR 9 BUN/Creatinine Ratio 6 Glucose 82 Calcium 9.4 Troponin T 0.182 H* D Laboratory Results - last 24 hr 11/09/17 11/09/17 04:38 04:38 WBC 4.5 RBC 3.43 L Hgb 9.6 L Hct 29.0 L MCV 85 MCH 28 MCHC 33 RDW 20.7 H Plt Count 268 Lymph % (Auto) 30.8 [place] % (Auto) 13.2 H Eos % (Auto) 2.0 Baso % (Auto) 0.5 Lymph # 1.4 [place] # 0.6 Eos # 0.1 Baso # 0.0 Seg Neutrophils % 53.5 Seg Neutrophils # 2.4 Sodium 142 Potassium 4.5 Chloride 97.6 L Carbon Dioxide 31 H Anion Gap 18 BUN 32 H Creatinine 5.8 H Estimated GFR 9 BUN/Creatinine Ratio 6 Glucose 82 Calcium 9.4 Troponin T 0.182 H* D - EKG Data -: EKG Interpreted by Me - EKG Data 11/09/17 07:00 EKG obtained 0511 NSR 75 bpm nl axis prolonged QT + LVH nonspecific t wave pattern, down sloping ST segments unchanged from EKG 11/05/2017 - Medical Decision Making Mrs. Molina has a history of angina, coronary artery disease and ESRD. She was recently discharged November 06 just 3 prior after cardiology evaluation. According to cardiology report at [place] she had left heart cath on July 27- 08 03. Nonobstructive CAD was seen at that time. There was residual ischemia seen on myocardial perfusion scan this Januay. Due to nonspecific symptoms of chest pain abdominal pain without discrete location, I do not feel that she is having active infarct at this time. I also do not feel that she has unstable angina at this time. I do feel that she does have stable angina which needs a medical management. It is unclear whether she is taking her medicine as prescribed. She will be discharged home. She appears comfortable on today's presentation. I stressed the need for her to go to dialysis today. Critical care attestation.: If time is entered above; I have spent that time in minutes in the direct care of this critically ill patient, excluding procedure time. ED Disposition Clinical Impression: Stable angina, CAD (coronary artery disease), ESRD (end stage renal disease) on dialysis Disposition: TO HOME OR SELFCARE Is pt being admited?: No Does the pt Need Aspirin: No Condition: Stable Instructions: Angina (ED) Referrals: CON VALDES MD [Primary Care Provider] - 3-5 Days ELLEN GAY MD [Staff Physician] - 3-5 Days Time of Disposition: 07:11
[2017-11-09] MEDS ORDERED: PERCOCET 5/325 PO ONE (07:11)
[2017-11-09] MEDS ORDERED: ZOFRAN ODT PO ONE (07:11)
== END 2017-11-09 09:53 | disposition home or self-care (01) ==
LOC: ED 03:14
DX: I20.9 Angina pectoris, unspecified (principal); I25.10 Atherosclerotic heart disease of native coronary artery without angina pectoris; I12.0 Hypertensive chronic kidney disease with stage 5 chronic kidney disease or end stage renal disease; N18.6 End stage renal disease; Z99.2 Dependence on renal dialysis
CPT/HCPCS: 36415; 80048; 84484; 85025; 93005; 93010; Q0162

== ENCOUNTER 2017-11-12 05:45 | Inpatient (IN) | payer MEDICARE ==
[2017-11-12] MEDS ORDERED: ASPIRIN PO ONE (06:50)
[2017-11-12 07:35] LABS: Hematocrit 26.6 % (30.3-42.9); Hemoglobin 8.8 gm/dl (10.1-14.3); Mean Corpuscular HGB Conc 33 % (30-34); Mean Corpuscular Hemoglobin 28 pg (28-32); Mean Corpuscular Volume 85 fl (79-97); Platelet Count 240 K/mm3 (140-440); Red Blood Count 3.14 M/mm3 (3.65-5.03)
[2017-11-12 07:36] LABS: Red Cell Distribution Width 20.2 % (13.2-15.2)
[2017-11-12 07:57] LABS: Calcium 9.2 mg/dL (8.4-10.2)
[2017-11-12 08:47] LABS: Anisocytosis 1+; Poikilocytosis 1+; Total Cells Counted 100
[2017-11-12 08:48] LABS: Ovalocytes 1+
[2017-11-12 08:49] LABS: Platelet Estimate Cons
--- NOTE | 2017-11-12 12:01 | Emergency Department Report ---
ED General Adult HPI - General Chief complaint: Chest Pain Stated complaint: CHEST,BACK PAIN Time Seen by Provider: 11/12/17 11:46 Source: patient, RN notes reviewed, old records reviewed Mode of arrival: Stretcher Limitations: No Limitations - History of Present Illness Initial comments: This is a 67-year-old female whom I have evaluated in the past. Has a past medical history of end-stage renal disease on dialysis, nonobstructive heart disease, chronic pain syndrome. Please note patient has had multiple recent negative CAT scans of her chest for pulmonary embolus, including June 23, July 13, August 20. Patient also recently admitted to the hospital and evaluated by cardiology, patient had a nuclear stress test in 10/04/2017, which "showed suggestion of prior infarction with mild residual ischemia in the left circumflex territory." As per recent cardiology consult, "no indication for repeat ischemic evaluation or echocardiogram at this time. Continue current present cardiac management, including aspirin, Lipitor, Coreg, Plavix, lisinopril, Imdur." Patient presents to the ER today with her typical constellation of complaints, including chest pain, abdominal pain and headache. She reports all of these symptoms started yesterday. The headache is global. It is not sudden or thunderclap in nature. It is not maximal intensity within an hour. It does not radiate anywhere. It is mostly in the frontal region. There is no temporal pain, there is no claudication there is no change in visual acuity. The chest pain is central and right-sided. It does not radiate anywhere. He does not have exacerbating or relieving factors. The abdominal pain is diffuse and achy. It is all over. It increases with palpation. It decreases with rest. -: Gradual Location: head, chest, abdomen Severity scale (0 -10): 7 Quality: aching Consistency: intermittent Improves with: other (as per history of present illness) Worsens with: other (as per history of present illness) Associated Symptoms: chest pain, headaches, loss of appetite, shortness of breath. denies: confusion, cough, diaphoresis, malaise, nausea/vomiting, rash, seizure, syncope, weakness - Related Data Home Medications Medication Instructions Recorded Confirmed Last Taken Cinacalcet [Sensipar] 60 mg PO QDAY 09/27/17 11/12/17 10/11/17 Sennosides [Senna Lax] 8.6 mg PO DAILY PRN 09/27/17 11/12/17 10/11/17 ISOSORBIDE MONOnitrate [Imdur ER] 30 mg PO QDAY 10/14/17 11/12/17 Unknown Dialyvite 800 Plus D Wafer 800 mg PO DAILY 11/05/17 11/12/17 Unknown Pantoprazole Sodium 40 mg PO DAILY 11/05/17 11/12/17 Unknown Previous Rx's Medication Instructions Recorded Last Taken Type Carvedilol [Coreg] 12.5 mg PO BID #60 tablet 06/27/17 10/11/17 Rx Clopidogrel [Plavix] 75 mg PO QDAY #30 tablet 06/27/17 10/11/17 Rx Dicyclomine [Bentyl] 10 mg PO TID PRN #30 capsule 09/13/17 10/11/17 Rx Atorvastatin Calcium [Lipitor] 40 mg PO DAILY #30 tablet 11/06/17 Unknown Rx oxyCODONE /ACETAMINOPHEN [Percocet 1 tab PO QHS PRN #7 tablet 11/06/17 Unknown Rx 5/325 mg] Allergies Allergy/AdvReac Type Severity Reaction Status Date / Time No Known Allergies Allergy Verified 10/21/17 05:14 ED Review of Systems ROS: Stated complaint: CHEST,BACK PAIN Other details as noted in HPI Comment: All other systems reviewed and negative (see history of present illness ) Cardiovascular: chest pain Gastrointestinal: abdominal pain Neurological: headache Psychiatric: anxiety ED Past Medical Hx - Past Medical History Hx Hypertension: Yes Hx CVA: Yes (x 2) Hx Heart Attack/AMI: Yes Hx Congestive Heart Failure: Yes Hx Diabetes: No Hx Deep Vein Thrombosis: No Hx GERD: No Hx Liver Disease: No Hx Renal Disease: Yes (Dialysis MWF) Hx Sickle Cell Disease: No Hx Arthritis: No Hx Headaches / Migraines: No Hx Seizures: No Hx Kidney Stones: No Hx Asthma: No Hx COPD: No Hx Tuberculosis: No Hx Dementia: No Hx HIV: No Additional medical history: enlarged heart, gout, [facility] CORONARY ANGIOGRAPHY [facility] 08/06/2017-NONOBSTRUCTING HEART PER DR GIDEON BENOIT - Surgical History Hx Coronary Stent: No Hx Open Heart Surgery: No Hx Pacemaker: No Hx Internal Defibrillator: No Hx Cholecystectomy: No Hx Appendectomy: No Hx Breast Surgery: No Additional Surgical History: tubal ligation, vas cath. LUE fistula. cardiac workup includes a stress test on 12/21/2016 that was unremarkable. Patient status post PCI of RCA with subsequent subacute thrombus of the proximal RCA stent and angioplasty with resolution of thrombosis on November 2016. AICD placement Aug 2017. PCI 03/22/17 of RCA. 05/01/17 neg Lexiscan stress - Social History Smoking Status: Never Smoker Substance Use Type: None - Medications Home Medications: Home Medications Medication Instructions Recorded Confirmed Last Taken Type Carvedilol [Coreg] 12.5 mg PO BID #60 tablet 06/27/17 11/12/17 10/11/17 Rx Clopidogrel [Plavix] 75 mg PO QDAY #30 tablet 06/27/17 11/12/17 10/11/17 Rx Dicyclomine [Bentyl] 10 mg PO TID PRN #30 capsule 09/13/17 11/12/17 10/11/17 Rx Cinacalcet [Sensipar] 60 mg PO QDAY 09/27/17 11/12/17 10/11/17 History Sennosides [Senna Lax] 8.6 mg PO DAILY PRN 09/27/17 11/12/17 10/11/17 History ISOSORBIDE MONOnitrate [Imdur ER] 30 mg PO QDAY 10/14/17 11/12/17 Unknown History Dialyvite 800 Plus D Wafer 800 mg PO DAILY 11/05/17 11/12/17 Unknown History Pantoprazole Sodium 40 mg PO DAILY 11/05/17 11/12/17 Unknown History Atorvastatin Calcium [Lipitor] 40 mg PO DAILY #30 tablet 11/06/17 11/12/17 Unknown Rx oxyCODONE /ACETAMINOPHEN [Percocet 1 tab PO QHS PRN #7 tablet 11/06/17 11/12/17 Unknown Rx 5/325 mg] ED Physical Exam - General Limitations: No Limitations General appearance: alert, in no apparent distress - Head Head exam: Present: atraumatic, normocephalic - Eye Eye exam: Present: normal appearance, EOMI. Absent: nystagmus - ENT ENT exam: Present: normal exam, normal orophraynx, mucous membranes moist, normal external ear exam, other (there is no temporal tenderness) - Neck Neck exam: Present: normal inspection, full ROM - Respiratory Respiratory exam: Present: normal lung sounds bilaterally. Absent: respiratory distress, chest wall tenderness - Cardiovascular Cardiovascular Exam: Present: regular rate, normal rhythm, normal heart sounds. Absent: bradycardia, tachycardia, irregular rhythm, systolic murmur, diastolic murmur, rubs, gallop - GI/Abdominal GI/Abdominal exam: Present: soft, tenderness, normal bowel sounds, other (there is mild abdominal tenderness in the epigastric and left upper quadrant.). Absent: distended, guarding, rebound, rigid, pulsatile mass - Extremities Exam Extremities exam: Present: normal inspection, full ROM, normal capillary refill , other (left upper extremity AV fistula, no redness, pus or streaking). Absent : pedal edema, joint swelling, calf tenderness - Back Exam Back exam: Present: normal inspection, full ROM. Absent: tenderness, CVA tenderness (R), paraspinal tenderness, vertebral tenderness - Neurological Exam Neurological exam: Present: alert, oriented X3, CN II-XII intact, other ( Extraocular movements intact. Tongue midline. No facial droop. Facial sensation intact to light touch in the V1, V2, V3 distribution bilaterally. 5 and 5 strength in 4 extremities.. Sensation is intact to light touch in 4 extremities.). Absent: motor sensory deficit - Psychiatric Psychiatric exam: Present: normal affect, normal mood - Skin Skin exam: Present: warm, dry, intact, normal color. Absent: rash ED Course Vital Signs 11/12/17 11/12/17 11/12/17 06:23 06:44 11:39 Temperature 98.2 F 98.2 F Pulse Rate 85 84 86 Respiratory 18 16 26 H Rate Blood Pressure 151/70 151/70 O2 Sat by Pulse 100 100 Oximetry 11/12/17 11/12/17 11/12/17 11:49 11:54 12:00 Temperature Pulse Rate 85 83 Respiratory 13 28 H Rate Blood Pressure 141/73 O2 Sat by Pulse 96 Oximetry 11/12/17 11/12/17 11/12/17 13:13 13:30 14:00 Temperature Pulse Rate 66 85 82 Respiratory 21 24 Rate Blood Pressure 141/73 151/59 161/60 O2 Sat by Pulse Oximetry 11/12/17 14:30 Temperature Pulse Rate Respiratory 22 Rate Blood Pressure 144/57 O2 Sat by Pulse Oximetry - Reevaluation(s) Reevaluation #1: 11/12/17 14:[address] scan of the brain negative for acute findings. Noncontrast CT scan of the abdomen and pelvis negative for acute findings. X-ray of the chest demonstrates cardiomegaly, chronic pulmonary vascular congestion. I will defer to the inpatient team for further management. ED Medical Decision Making - Lab Data Result diagrams: 11/12/17 07:08 11/12/17 07:08 Vital Signs 11/12/17 11/12/17 11/12/17 06:23 06:44 11:39 Temperature 98.2 F 98.2 F Pulse Rate 85 84 86 Respiratory 18 16 26 H Rate Blood Pressure 151/70 151/70 O2 Sat by Pulse 100 100 Oximetry 11/12/17 11/12/17 11/12/17 11:49 11:54 12:00 Temperature Pulse Rate 85 83 Respiratory 13 28 H Rate Blood Pressure 141/73 O2 Sat by Pulse 96 Oximetry Lab Results 11/12/17 11/12/17 11/12/17 Range/Units 07:08 07:08 10:23 WBC 3.2 L (4.5-11.0) K/mm3 RBC 3.14 L (3.65-5.03) M/mm3 Hgb 8.8 L (10.1-14.3) gm/dl Hct 26.6 L (30.3-42.9) % MCV 85 (79-97) fl MCH 28 (28-32) pg MCHC 33 (30-34) % RDW 20.2 H (13.2-15.2) % Plt Count 240 (140-440) K/mm3 Bond % (Auto) Parole Agent Add Manual Diff Complete Total Counted 100 Seg Neuts % (Manual) 69.0 (40.0-70.0) % Band Neutrophils % 0 % Lymphocytes % (Manual) 18.0 (13.4-35.0) % Reactive Lymphs % (Man) 0 % Monocytes % (Manual) 11.0 H (0.0-7.3) % Eosinophils % (Manual) 1.0 (0.0-4.3) % Basophils % (Manual) 1.0 (0.0-1.8) % Metamyelocytes % 0 % Myelocytes % 0 % Promyelocytes % 0 % Blast Cells % 0 % Nucleated RBC % Not Reportable Seg Neutrophils # Man 2.2 (1.8-7.7) K/mm3 Band Neutrophils # 0.0 K/mm3 Lymphocytes # (Manual) 0.6 L (1.2-5.4) K/mm3 Abs React Lymphs (Man) 0.0 K/mm3 Monocytes # (Manual) 0.4 (0.0-0.8) K/mm3 Eosinophils # (Manual) 0.0 (0.0-0.4) K/mm3 Basophils # (Manual) 0.0 (0.0-0.1) K/mm3 Metamyelocytes # 0.0 K/mm3 Myelocytes # 0.0 K/mm3 Promyelocytes # 0.0 K/mm3 Blast Cells # 0.0 K/mm3 WBC Morphology Not Reportable Hypersegmented Neuts Not Reportable Hyposegmented Neuts Not Reportable Hypogranular Neuts Not Reportable Smudge Cells Not Reportable Toxic Granulation Not Reportable Toxic Vacuolation Not Reportable Dohle Bodies Not Reportable Pelger-Huet Anomaly Not Reportable Angélica Rods Not Reportable Platelet Estimate Cons Clumped Platelets Not Reportable Plt Clumps, EDTA Not Reportable Large Platelets Not Reportable Giant Platelets Not Reportable Platelet Satelliting Not Reportable Plt Morphology Comment Not Reportable RBC Morphology Not Reportable Dimorphic RBCs Not Reportable Polychromasia Not Reportable Hypochromasia Not Reportable Poikilocytosis 1+ Anisocytosis 1+ Microcytosis Not Reportable Macrocytosis Not Reportable Spherocytes Not Reportable Pappenheimer Bodies Not Reportable Sickle Cells Not Reportable Target Cells Not Reportable Tear Drop Cells Not Reportable Ovalocytes 1+ Helmet Cells Not Reportable Davila-Encinal Bodies Not Reportable [place] Rings Not Reportable [place] Cells Not Reportable Bite Cells Not Reportable Crenated Cell Not Reportable Elliptocytes Few Acanthocytes (Spur) Not Reportable Rouleaux Not Reportable Hemoglobin C Crystals Not Reportable Schistocytes Not Reportable Malaria parasites Not Reportable [place] Bodies Not Reportable Hem Pathologist Commnt No Sodium 139 (137-145) mmol/L Potassium 5.9 H D (3.6-5.0) mmol/L Chloride 93.8 L (98-107) mmol/L Carbon Dioxide 28 (22-30) mmol/L Anion Gap 23 mmol/L BUN 65 H (7-17) mg/dL Creatinine 10.8 H D (0.7-1.2) mg/dL Estimated GFR 4 ml/min BUN/Creatinine Ratio 6 % Glucose 79 (65-100) mg/dL Calcium 9.2 (8.4-10.2) mg/dL Troponin T 0.213 H* 0.212 H* (0.00-0.029) ng/mL - EKG Data 11/12/17 12:35 Sinus, 84 bpm, QTC prolonged, VT interval prolonged, abnormal EKG, not morphologically consistent with STEMI, appears unchanged from prior EKG from . - Radiology Data Radiology results: pending, report reviewed, image reviewed Noncontrast CT scan of the brain negative for acute findings. Noncontrast CT scan of the abdomen and pelvis negative for acute findings. X-ray of the chest demonstrates cardiomegaly, chronic pulmonary vascular congestion. I will defer to the inpatient team for further management. - Medical Decision Making Differential diagnosis, including but not limited to: Constipation, chronic abdominal pain, acute coronary syndrome, pneumonia, migraine headache, tension headache, cluster headache, drug-seeking behavior, hyperkalemia, end-stage renal disease Assessment and plan: 67-year-old female presenting with her typical constellation of complaints, including chest pain, headache, abdominal pain. I have evaluated this patient multiple times for similar complaints. Her headache is on history or click consistent with subarachnoid hemorrhage, stroke , or temporal arteritis. When this provider walks into the room to examine the patient she is resting comfortably in no distress, watching TV. We will obtain noncontrast CT scan of the brain to exclude intracranial hemorrhage. Patient has had multiple evaluations at this hospital for chest pain, and recently was seen by cardiology last month, who specifically did not recommend coronary syndrome risk stratification, her EKG is abnormal but unchanged from her prior EKG, elevated troponin is chronically elevated likely secondary to renal insufficiency. Based on history and physical as well as chronicity of visits, in addition to multiple negative recent CAT scans of her chest, I think a pulmonary embolus is very unlikely. Her abdominal pain is chronic, she is minimally tender today, noncontrast CT scan of the abdomen and pelvis is ordered. Patient will remain in the ER pending results of her CT scans. For her hyperkalemia she will be treated medically, Kayexalate will be held pending results of CT scan of the abdomen and pelvis to avoid colonic catastrophe. Case was presented to the Hospital physician, Dr. Cheng who accepted the patient to the medical service, case presented to nephrology owner consulting engineer, Dr. Triston Rashid; he will follow in consultation, agrees with plan, and agrees with plan for medical management. He will arrange dialysis. Critical care attestation.: If time is entered above; I have spent that time in minutes in the direct care of this critically ill patient, excluding procedure time. ED Disposition Clinical Impression: ESRD (end stage renal disease) on dialysis, Elevated troponin, Chronic abdominal pain, Abdominal pain, Hyperkalemia Disposition: OP ADMIT IP TO THIS HOSP Is pt being admited?: Yes Condition: Stable
[2017-11-12] MEDS ORDERED: PROVENTIL IH ONE (12:36)
[2017-11-12] MEDS ORDERED: D50W (25GM) Syringe IV ONE (12:36)
[2017-11-12] MEDS ORDERED: SODIUM BICARBONATE IV ONE (13:00)
--- NOTE | 2017-11-12 13:01 | History and Physical Report ---
History of Present Illness Chief complaint: Im hurting all over History of present illness: 67 YO Female with HTN, CVA, Combined CHF( EF 30%), DM, ESRD on HD(M,W,F), GERD, CAD, Chronic Pain, Nicotine Dependence presents to ED for evaluation. Pt states that she experienced pain all over her body. Pt states that she has pain in her chest, abdomen, head, back and her legs. Pain is 6-8/10, constant, not worsened with exertion or relieved with rest. Pt seen and evaluate in ED and found to have evidence of fluid overload, as well as acute respiratory failure. Pt treated with supplemental oxygen, nebulizer therapy, NIPPV. Nephrology team consulted for urgent dialysis. Pt denies fever, chills, palpitations, productive cough, orthopnea, difficulty breathing, NVD, syncope, vertigo, prolonged immobility/travel, individual/family history of DVT/PE. Past History Past Medical History: acute ME, ESRD, GERD, heart failure, hypertension, stroke Past Surgical History: Other (Tubal ligation, AVF) Social history: . denies: smoking, alcohol abuse, prescription drug abuse Family history: hypertension Medications and Allergies Allergies Allergy/AdvReac Type Severity Reaction Status Date / Time No Known Allergies Allergy Verified 10/21/17 05:14 Home Medications Medication Instructions Recorded Confirmed Last Taken Type Carvedilol [Coreg] 12.5 mg PO BID #60 tablet 06/27/17 11/12/17 10/11/17 Rx Clopidogrel [Plavix] 75 mg PO QDAY #30 tablet 06/27/17 11/12/17 10/11/17 Rx Dicyclomine [Bentyl] 10 mg PO TID PRN #30 capsule 09/13/17 11/12/17 10/11/17 Rx Cinacalcet [Sensipar] 60 mg PO QDAY 09/27/17 11/12/17 10/11/17 History Sennosides [Senna Lax] 8.6 mg PO DAILY PRN 09/27/17 11/12/17 10/11/17 History ISOSORBIDE MONOnitrate [Imdur ER] 30 mg PO QDAY 10/14/17 11/12/17 Unknown History Dialyvite 800 Plus D Wafer 800 mg PO DAILY 11/05/17 11/12/17 Unknown History Pantoprazole Sodium 40 mg PO DAILY 11/05/17 11/12/17 Unknown History Atorvastatin Calcium [Lipitor] 40 mg PO DAILY #30 tablet 11/06/17 11/12/17 Unknown Rx oxyCODONE /ACETAMINOPHEN [Percocet 1 tab PO QHS PRN #7 tablet 11/06/17 11/12/17 Unknown Rx 5/325 mg] Review of Systems Constitutional: chronic pain, no weight loss, no weight gain, no fever, no chills, no sweats Ears, nose, mouth and throat: no ear pain, no ear discharge, no tinnitis, no decreased hearing, no nose pain, no nasal congestion Breasts: no change in shape, no swelling, no mass Cardiovascular: no chest pain, no orthopnea, no palpitations, no rapid/ irregular heart beat, no edema, no syncope, no lightheadedness Respiratory: no cough, no cough with sputum, no excessive sputum, no hemoptysis , no shortness of breath Gastrointestinal: no nausea, no vomiting, no diarrhea, no constipation Genitourinary Female: no pelvic pain, no flank pain, no menorrhagia, no dysuria , no urinary frequency, no urgency Rectal: no pain, no incontinence, no bleeding Musculoskeletal: no neck stiffness, no neck pain, no shooting arm pain, no arm numbness/tingling, no low back pain, no shooting leg pain Integumentary: no rash, no pruritis, no redness, no sores, no wounds, no jaundice Neurological: no head injury, no transient paralysis, no paralysis, no weakness , no parathesias, no numbness, no tingling Psychiatric: no anxiety, no memory loss, no change in sleep habits, no sleep disturbances, no insomnia, no hypersomnia, no change in appetite, no change in libido Endocrine: no cold intolerance, no heat intolerance, no polyphagia, no excessive thirst, no polydipsia, no polyuria, no nocturia Hematologic/Lymphatic: no easy bruising, no easy bleeding Allergic/Immunologic: no urticaria, no allergic rhinitis, no wheezing Exam - Constitutional Vitals: Temp Pulse Resp BP Pulse Ox 98.2 F 83 28 H 141/73 96 11/12/17 06:44 11/12/17 12:00 11/12/17 12:00 11/12/17 12:00 11/12/17 11:49 General appearance: Present: mild distress - EENT Eyes: Present: PERRL ENT: hearing intact, clear oral mucosa - Neck Neck: Present: supple, normal ROM - Respiratory Respiratory effort: normal, labored Respiratory: bilateral: CTA - Cardiovascular Heart Sounds: Present: S1 & S2. Absent: rub, click - Extremities Extremities: pulses symmetrical, No edema Peripheral Pulses: within normal limits - Abdominal General gastrointestinal: Present: soft, non-tender, non-distended, normal bowel sounds Female genitourinary: Present: normal - Integumentary Integumentary: Present: clear, warm, dry - Musculoskeletal Musculoskeletal: gait normal, strength equal bilaterally - Psychiatric Psychiatric: appropriate mood/affect, intact judgment & insight - Neurologic Neurologic: CNII-XII intact, moves all extremities Results - Labs CBC & Chem 7: 11/12/17 07:08 11/12/17 07:08 Labs: Abnormal lab results 11/12/17 11/12/17 11/12/17 Range/Units 07:08 07:08 10:23 WBC 3.2 L (4.5-11.0) K/mm3 RBC 3.14 L (3.65-5.03) M/mm3 Hgb 8.8 L (10.1-14.3) gm/dl Hct 26.6 L (30.3-42.9) % RDW 20.2 H (13.2-15.2) % Monocytes % (Manual) 11.0 H (0.0-7.3) % Lymphocytes # (Manual) 0.6 L (1.2-5.4) K/mm3 Potassium 5.9 H D (3.6-5.0) mmol/L Chloride 93.8 L (98-107) mmol/L BUN 65 H (7-17) mg/dL Creatinine 10.8 H D (0.7-1.2) mg/dL Troponin T 0.213 H* 0.212 H* (0.00-0.029) ng/mL Assessment and Plan - Patient Problems (1) CHF (congestive heart failure) Current Visit: Yes Status: Acute Qualifiers: Congestive heart failure type: combined Congestive heart failure chronicity : acute on chronic Qualified Code(s): I50.43 - Acute on chronic combined systolic (congestive) and diastolic (congestive) heart failure Plan to address problem: Diuresis, supplemental oxygen, remote telemetry, urgent dialysis, fluid restriction, daily weights, (2) Hyperkalemia Current Visit: Yes Status: Acute Plan to address problem: Urgent dialysis, Nephrology consulted, Pt to go to dialysis today. (3) ESRD (end stage renal disease) on dialysis Current Visit: Yes Status: Chronic Plan to address problem: Nephrology consulted for urgent dialysis, fluid restriction, (4) HTN (hypertension) Current Visit: Yes Status: Acute Qualifiers: Hypertension type: essential hypertension Qualified Code(s): I10 - Essential (primary) hypertension Plan to address problem: Monitor BP q shift, IV hydralazine prn, supportive care. (5) Diabetes Current Visit: No Status: Acute Plan to address problem: ADA diet, insulin, accu check (6) DVT prophylaxis Current Visit: Yes Status: Acute
[2017-11-12] MEDS ORDERED: ZOFRAN IV PRN (13:04)
[2017-11-12] MEDS ORDERED: TYLENOL PO PRN (13:04)
[2017-11-12] MEDS ORDERED: PROVENTIL IH PRN (13:04)
[2017-11-12] MEDS ORDERED: SENOKOT PO PRN (13:06)
[2017-11-12] MEDS ORDERED: ASPIRIN ONE (13:25)
--- NOTE | 2017-11-12 13:49 | Cat Scan Report ---
CT HEAD WITHOUT CONTRAST: HISTORY: Head ache. TECHNIQUE: Sequential 2.5mm CT images. COMPARISON: 10/01/17. FINDINGS: Mild nonspecific chronic white matter changes are stable. Chronic focal infarcts in the posterior right cerebellum are again noted and unchanged. No evidence for hemorrhage, mass, extra axial fluid collection or large area of acute ischemia. Ventricular size remains within normal limits. The calvarium is intact. The sinuses and mastoid air cells are well aerated. IMPRESSION: No acute intracranial process. Chronic findings which are unchanged since 10/01/17.
--- NOTE | 2017-11-12 13:59 | Cat Scan Report ---
CT ABDOMEN PELVIS WITHOUT CONTRAST: HISTORY: abdominal pain. COMPARISON: 10/02/17. TECHNIQUE: Helical CT in 1.25mm intervals without IV contrast. Sagittal and coronal reconstructions. FINDINGS: Lung bases: Moderate cardiomegaly is unchanged. The visualized lung bases are adequately aerated. Liver: Normal. Biliary system: Normal. Pancreas: Normal. Spleen: Normal. Kidneys/ureters/bladder: Both kidneys are atrophic which is unchanged. No focal renal lesion, nephrolithiasis or hydronephrosis. The ureters and bladder are unremarkable. Adrenal glands: Normal. Aorta: Moderate diffuse calcifications. No aneurysm or dissection. Intestines: There are scattered diverticula in the distal colon. Otherwise the bowel loops appear normal caliber and wall thickness. No obvious obstruction or focal inflammation is identified. Appendix: Not confidently identified, correlate with surgical history. Pelvic viscera: Normal. Ascites: None. Adenopathy: None. Musculoskeletal: Mild thoracolumbar spondylosis. No fracture or suspicious bony lesion. IMPRESSION: No acute inflammatory process is identified in the abdomen or pelvis. Cardiomegaly, stable. Chronic renal parenchymal disease. Diverticulosis of the distal colon. Diffuse atherosclerotic disease.
[2017-11-12] MEDS ORDERED: BENTYL PO PRN (14:00)
--- NOTE | 2017-11-12 14:16 | XRay Report ---
AP CHEST: HISTORY: chest pain Moderate cardiomegaly, mild pulmonary venous congestion and trace left pleural effusion are suspected. No obvious pneumonia or pneumothorax. Cardiac device is unchanged. IMPRESSION: Mild CHF.
[2017-11-12] MEDS ORDERED: NACL 0.9% 100 ML IV PRN (15:26)
[2017-11-12] MEDS: COREG PO SCH (21:11)
[2017-11-12] MEDS: PERCOCET 5/325 PO PRN (21:12)
[2017-11-13] MEDS ORDERED: IMDUR PO SCH (10:00)
[2017-11-13] MEDS ORDERED: DIALYVITE PO SCH (10:00)
[2017-11-13] MEDS ORDERED: [UNRECOGNIZED DRUG - OTHER] PO SCH (10:00)
[2017-11-13] MEDS: IMDUR PO SCH (10:09)
[2017-11-13] MEDS: PLAVIX PO SCH (10:10)
[2017-11-13] MEDS: SENSIPAR PO SCH (10:10)
[2017-11-13] MEDS: Renal Caps PO SCH (10:10)
[2017-11-13] MEDS: COREG PO SCH ×2 (10:10→22:00)
[2017-11-13] MEDS: PROTONIX PO SCH (10:10)
[2017-11-13] MEDS ORDERED: MORPHINE IV PRN (10:21)
[2017-11-13] MEDS: MORPHINE IV PRN ×2 (10:37→17:02)
--- NOTE | 2017-11-13 18:48 | Consultation ---
History of Present Illness - Reason for Consult Consult date: 11/13/17 end stage renal disease Requesting physician: CON JAMES - History of Present Illness 67-year-old lady who is well known to me with a history of End stage renal disease on hemodialysis on a Sunday, Sunday and Sunday schedule. Patient has had numerous admissions with chest and abdominal pain. Has been hospitalized at least 4-5 times this year already. Patient went to dialysis complained of chest pain and not feeling well and so she was sent to the hospital for further evaluation. She describes it as sharp Pain in the left chest radiating to the upper abdomen with associated palpitations and shortness of breath but no nausea or vomiting. No dizziness or diaphoresis. Patient has had extensive evaluation cardiac and GI. She does have coronary artery disease with Percutaneous coronary intervention last year. She also has congestive heart failure which ejection fraction of 25% with global hypokinesia in July 2017. GI workup including upper and lower endoscopies and CT scans have been unrevealing except for gastroesophageal reflux disease Past History Past Medical History: acute AR, CAD, ESRD, GERD, heart failure, hypertension, stroke Past Surgical History: appendectomy, PTCA, Other (Tubal ligation, AVF) Social history: , other (son is currently living with her). denies: smoking, alcohol abuse, prescription drug abuse, IV drug use Family history: hypertension Medications and Allergies Allergies Allergy/AdvReac Type Severity Reaction Status Date / Time No Known Allergies Allergy Verified 10/21/17 05:14 Home Medications Medication Instructions Recorded Confirmed Last Taken Type Carvedilol [Coreg] 12.5 mg PO BID #60 tablet 06/27/17 11/12/17 10/11/17 Rx Clopidogrel [Plavix] 75 mg PO QDAY #30 tablet 06/27/17 11/12/17 10/11/17 Rx Dicyclomine [Bentyl] 10 mg PO TID PRN #30 capsule 09/13/17 11/12/17 10/11/17 Rx Cinacalcet [Sensipar] 60 mg PO QDAY 09/27/17 11/12/17 10/11/17 History Sennosides [Senna Lax] 8.6 mg PO DAILY PRN 09/27/17 11/12/17 10/11/17 History ISOSORBIDE MONOnitrate [Imdur ER] 30 mg PO QDAY 10/14/17 11/12/17 Unknown History Dialyvite 800 Plus D Wafer 800 mg PO DAILY 11/05/17 11/12/17 Unknown History Pantoprazole Sodium 40 mg PO DAILY 11/05/17 11/12/17 Unknown History Atorvastatin Calcium [Lipitor] 40 mg PO DAILY #30 tablet 11/06/17 11/12/17 Unknown Rx oxyCODONE /ACETAMINOPHEN [Percocet 1 tab PO QHS PRN #7 tablet 11/06/17 11/12/17 Unknown Rx 5/325 mg] Active Meds: Active Medications Acetaminophen (Tylenol) 650 mg PO Q4H PRN PRN Reason: Pain MILD(1-3)/Fever >100.5/SANCHEZ Albuterol (Proventil) 2.5 mg IH Q4HRT PRN PRN Reason: Shortness Of Breath Atorvastatin Calcium (Lipitor) 40 mg PO HS [facility] Carvedilol (Coreg) 12.5 mg PO BID [facility] Last Admin: 11/13/17 10:10 Dose: 12.5 mg Cinacalcet (Sensipar) 30 mg PO DAILY [facility] Last Admin: 11/13/17 10:10 Dose: 30 mg Clopidogrel Bisulfate (Plavix) 75 mg PO QDAY [facility] Last Admin: 11/13/17 10:10 Dose: 75 mg Dicyclomine HCl (Bentyl) 10 mg PO TID PRN PRN Reason: Pain Sodium Chloride (Nacl 0.9%) 100 mls @ 999 mls/hr IV JOAN PRN PRN Reason: Hypotension Isosorbide Mononitrate (Imdur) 30 mg PO DAILY [facility] Last Admin: 11/13/17 10:09 Dose: 30 mg Morphine Sulfate (Morphine) 1 mg IV Q6H PRN PRN Reason: Pain , Severe (7-10) Last Admin: 11/13/17 17:02 Dose: 1 mg Multivit/Ca Carb/B Cmplx/FA/Prenat (Renal Caps) 1 cap PO QDAY [facility] Last Admin: 11/13/17 10:10 Dose: 1 cap Ondansetron HCl (Zofran) 4 mg IV Q8H PRN PRN Reason: N/V unrelieved by Reglan Oxycodone/Acetaminophen (Percocet 5/325) 1 tab PO QHS PRN PRN Reason: Pain, Moderate (4-6) Last Admin: 11/12/17 21:12 Dose: 1 tab Pantoprazole Sodium (Protonix) 40 mg PO DAILY [facility] Last Admin: 11/13/17 10:10 Dose: 40 mg Senna (Senokot) 8.6 mg PO DAILY PRN PRN Reason: Constipation Review of Systems All systems: negative (Constitutional: no fever or chills. No anorexia or weight loss. HEENT: No sore throat but she admits to sinus drainage. No hearing or vision impairment . Cardiovascular: See history of present illness. No lower extremity swelling or dizziness. Respiratory: Admits to cough productive of clear sputum. No hemoptysis or wheezing. Gastrointestinal: Had occasional episode of nausea and vomiting. She also complains of diarrhea which was not bloody or mucoid and upper, abdominal pain. No hematemesis or melena. Genitourinary: No frequency urgency dysuria or hematuria. hematologic: No abnormal bleeding or bruising. Integumentary: Admits to itching but no rash. Neurological: Had a severe headache yesterday. No focal weakness or numbness , no syncope or seizures. Musculoskeletal: No joint pains no stiffness. Psychiatry: no anxiety or depression) Exam - Vital Signs Vital signs: Vital Signs Temp Pulse Resp BP Pulse Ox 98.2 F 85 18 151/70 100 11/12/17 06:23 11/12/17 06:23 11/12/17 06:23 11/12/17 06:23 11/12/17 06:23 - Physical Exam Narrative exam: Elderly F Sia, female lying in bed in no acute distress HEENT: NCAT, pink oral mucous membrane Neck: Supple, no venous distention CVS: S1S2 RRR with no murmur, rub or gallop Chest: Clear to auscultation Abdomen: Protuberant, soft, vague epigastric , no organomegaly, bowel sounds are present Extremities: No edema, no clubbing Skin: Warm and dry, no rash Neuro: Awake, alert no focal deficits Results - Lab Results 11/12/17 07:08 11/12/17 07:08 Most recent lab results Calcium 9.2 mg/dL (8.4-10.2) 11/12/17 07:08 Assessment and Plan - Patient Problems (1) ESRD (end stage renal disease) on dialysis Current Visit: Yes Status: Chronic Plan to address problem: Patient received hemodialysis yesterday. We'll dialyze again tomorrow. (2) Anemia in end-stage renal disease Current Visit: No Status: Acute Plan to address problem: Give erythropoietin on dialysis (3) Atypical chest pain Current Visit: No Status: Acute Plan to address problem: Management by hospitalist (4) Chronic systolic heart failure Current Visit: No Status: Acute Plan to address problem: Fluid removal on dialysis. Continue beta nikolas (5) Hyperkalemia Current Visit: No Status: Acute Plan to address problem: Patient had dialysis yesterday. Follow potassium. (6) Hypertensive chronic kidney disease with stage 5 chronic kidney disease or end stage renal disease Current Visit: No Status: Acute Plan to address problem: Resume antihypertensive medications and follow blood pressure (7) GERD (gastroesophageal reflux disease) Current Visit: No Status: Chronic Qualifiers: Esophagitis presence: without esophagitis Qualified Code(s): K21.9 - Gastro -esophageal reflux disease without esophagitis Plan to address problem: Continue proton pump inhibitor and Reglan as needed
--- NOTE | 2017-11-13 20:24 | Progress Note ---
Assessment and Plan Assessment and plan: --Atypical chest pain; probably secondary to costochondritis Patient had extensive cardiac workup in the past Continue medical management --Chronic systolic congestive heart failure; well compensated Continue current medications --End-stage renal disease on hemodialysis Nephrology following, HD per schedule --Anemia of end-stage renal disease; Procrit, closely monitor, transfuse as needed --Hyperkalemia; corrected, closely monitor electrolytes --Hypertension nephropathy; Continue current antihypertensives and when necessary medications --Lipidemia; stable on lipid-lowering medications DVT prophylaxis; with heparin --full CODE STATUS Closely monitor the patient Possible discharge home after hemodialysis tomorrow if stable Plan of care reviewed with the patient and her nurse History Interval history: Patient seen and examined medical records reviewed Admitted with atypical left-sided chest pain Today much better No nausea or vomiting Alert awake oriented 3 not in acute distress Vital signs reviewed Hospitalist Physical - Constitutional Vitals: Temp Pulse Resp BP Pulse Ox 99.2 F 75 18 144/66 100 11/13/17 16:01 11/13/17 16:01 11/13/17 16:01 11/13/17 16:01 11/13/17 16:01 General appearance: Present: mild distress, well-nourished - EENT Eyes: Present: PERRL, EOM intact - Neck Neck: Present: supple, normal ROM - Respiratory Respiratory effort: normal Respiratory: bilateral: diminished, negative: rales, rhonchi, wheezing - Cardiovascular Rhythm: regular Heart Sounds: Present: S1 & S2 - Extremities Extremities: no ischemia, No edema Peripheral Pulses: within normal limits - Abdominal General gastrointestinal: soft, non-tender, distended, normal bowel sounds - Integumentary Integumentary: Present: clear, warm - Psychiatric Psychiatric: appropriate mood/affect, cooperative - Neurologic Neurologic: CNII-XII intact, moves all extremities Results - Labs CBC & Chem 7: 11/12/17 07:08 11/12/17 07:08 Labs: Laboratory Last Values WBC 3.2 K/mm3 (4.5-11.0) L 11/12/17 07:08 RBC 3.14 M/mm3 (3.65-5.03) L 11/12/17 07:08 Hgb 8.8 gm/dl (10.1-14.3) L 11/12/17 07:08 Hct 26.6 % (30.3-42.9) L 11/12/17 07:08 MCV 85 fl (79-97) 11/12/17 07:08 MCH 28 pg (28-32) 11/12/17 07:08 MCHC 33 % (30-34) 11/12/17 07:08 RDW 20.2 % (13.2-15.2) H 11/12/17 07:08 Plt Count 240 K/mm3 (140-440) 11/12/17 07:08 Norman % (Auto) English Division Chair 11/12/17 07:08 Add Manual Diff Complete 11/12/17 07:08 Total Counted 100 11/12/17 07:08 Seg Neuts % (Manual) 69.0 % (40.0-70.0) 11/12/17 07:08 Band Neutrophils % 0 % 11/12/17 07:08 Lymphocytes % (Manual) 18.0 % (13.4-35.0) 11/12/17 07:08 Reactive Lymphs % (Man) 0 % 11/12/17 07:08 Monocytes % (Manual) 11.0 % (0.0-7.3) H 11/12/17 07:08 Eosinophils % (Manual) 1.0 % (0.0-4.3) 11/12/17 07:08 Basophils % (Manual) 1.0 % (0.0-1.8) 11/12/17 07:08 Metamyelocytes % 0 % 11/12/17 07:08 Myelocytes % 0 % 11/12/17 07:08 Promyelocytes % 0 % 11/12/17 07:08 Blast Cells % 0 % 11/12/17 07:08 Nucleated RBC % Not Reportable 11/12/17 07:08 Seg Neutrophils # Man 2.2 K/mm3 (1.8-7.7) 11/12/17 07:08 Band Neutrophils # 0.0 K/mm3 11/12/17 07:08 Lymphocytes # (Manual) 0.6 K/mm3 (1.2-5.4) L 11/12/17 07:08 Abs React Lymphs (Man) 0.0 K/mm3 11/12/17 07:08 Monocytes # (Manual) 0.4 K/mm3 (0.0-0.8) 11/12/17 07:08 Eosinophils # (Manual) 0.0 K/mm3 (0.0-0.4) 11/12/17 07:08 Basophils # (Manual) 0.0 K/mm3 (0.0-0.1) 11/12/17 07:08 Metamyelocytes # 0.0 K/mm3 11/12/17 07:08 Myelocytes # 0.0 K/mm3 11/12/17 07:08 Promyelocytes # 0.0 K/mm3 11/12/17 07:08 Blast Cells # 0.0 K/mm3 11/12/17 07:08 WBC Morphology Not Reportable 11/12/17 07:08 Hypersegmented Neuts Not Reportable 11/12/17 07:08 Hyposegmented Neuts Not Reportable 11/12/17 07:08 Hypogranular Neuts Not Reportable 11/12/17 07:08 Smudge Cells Not Reportable 11/12/17 07:08 Toxic Granulation Not Reportable 11/12/17 07:08 Toxic Vacuolation Not Reportable 11/12/17 07:08 Dohle Bodies Not Reportable 11/12/17 07:08 Pelger-Huet Anomaly Not Reportable 11/12/17 07:08 Angélica Rods Not Reportable 11/12/17 07:08 Platelet Estimate Cons 11/12/17 07:08 Clumped Platelets Not Reportable 11/12/17 07:08 Plt Clumps, EDTA Not Reportable 11/12/17 07:08 Large Platelets Not Reportable 11/12/17 07:08 Giant Platelets Not Reportable 11/12/17 07:08 Platelet Satelliting Not Reportable 11/12/17 07:08 Plt Morphology Comment Not Reportable 11/12/17 07:08 RBC Morphology Not Reportable 11/12/17 07:08 Dimorphic RBCs Not Reportable 11/12/17 07:08 Polychromasia Not Reportable 11/12/17 07:08 Hypochromasia Not Reportable 11/12/17 07:08 Poikilocytosis 1+ 11/12/17 07:08 Anisocytosis 1+ 11/12/17 07:08 Microcytosis Not Reportable 11/12/17 07:08 Macrocytosis Not Reportable 11/12/17 07:08 Spherocytes Not Reportable 11/12/17 07:08 Pappenheimer Bodies Not Reportable 11/12/17 07:08 Sickle Cells Not Reportable 11/12/17 07:08 Target Cells Not Reportable 11/12/17 07:08 Tear Drop Cells Not Reportable 11/12/17 07:08 Ovalocytes 1+ 11/12/17 07:08 Helmet Cells Not Reportable 11/12/17 07:08 [place] Bodies Not Reportable 11/12/17 07:08 [place] Rings Not Reportable 11/12/17 07:08 [place] Cells Not Reportable 11/12/17 07:08 Bite Cells Not Reportable 11/12/17 07:08 Crenated Cell Not Reportable 11/12/17 07:08 Elliptocytes Few 11/12/17 07:08 Acanthocytes (Spur) Not Reportable 11/12/17 07:08 Rouleaux Not Reportable 11/12/17 07:08 Hemoglobin C Crystals Not Reportable 11/12/17 07:08 Schistocytes Not Reportable 11/12/17 07:08 Malaria parasites Not Reportable 11/12/17 07:08 [place] Bodies Not Reportable 11/12/17 07:08 Hem Pathologist Commnt No 11/12/17 07:08 Sodium 139 mmol/L (137-145) 11/12/17 07:08 Potassium 5.9 mmol/L (3.6-5.0) H D 11/12/17 07:08 Chloride 93.8 mmol/L (98-107) L 11/12/17 07:08 Carbon Dioxide 28 mmol/L (22-30) 11/12/17 07:08 Anion Gap 23 mmol/L 11/12/17 07:08 BUN 65 mg/dL (7-17) H 11/12/17 07:08 Creatinine 10.8 mg/dL (0.7-1.2) H D 11/12/17 07:08 Estimated GFR 4 ml/min 11/12/17 07:08 BUN/Creatinine Ratio 6 % 11/12/17 07:08 Glucose 79 mg/dL (65-100) 11/12/17 07:08 Calcium 9.2 mg/dL (8.4-10.2) 11/12/17 07:08 Troponin T 0.215 ng/mL (0.00-0.029) H* 11/12/17 13:12
[2017-11-13] MEDS: PERCOCET 5/325 PO PRN (21:59)
[2017-11-14] MEDS: MORPHINE IV PRN ×2 (03:40→13:16)
[2017-11-14 04:01] LABS: Hematocrit 26.3 % (30.3-42.9); Hemoglobin 8.4 gm/dl (10.1-14.3); Mean Corpuscular HGB Conc 32 % (30-34); Mean Corpuscular Hemoglobin 28 pg (28-32); Mean Corpuscular Volume 86 fl (79-97); Platelet Count 228 K/mm3 (140-440); Red Blood Count 3.05 M/mm3 (3.65-5.03)
[2017-11-14 04:09] LABS: Red Cell Distribution Width 20.5 % (13.2-15.2)
[2017-11-14 04:14] LABS: Calcium 8.7 mg/dL (8.4-10.2)
[2017-11-14 05:16] LABS: Basophils % (Manual) 0 % (0.0-1.8); Eosinophils % (Manual) 0 % (0.0-4.3); Total Cells Counted 100
[2017-11-14 05:17] LABS: Anisocytosis 1+; Platelet Estimate Consistent w Auto
[2017-11-14] MEDS: PERCOCET 5/325 PO PRN (08:43)
[2017-11-14] MEDS: COREG PO SCH (10:19)
[2017-11-14] MEDS: PROTONIX PO SCH (10:20)
[2017-11-14] MEDS: IMDUR PO SCH (10:20)
[2017-11-14] MEDS: PLAVIX PO SCH (10:20)
[2017-11-14] MEDS: Renal Caps PO SCH (10:21)
[2017-11-14] MEDS: SENSIPAR PO SCH (10:21)
--- NOTE | 2017-11-14 10:24 | Progress Note ---
Assessment and Plan - Patient Problems (1) ESRD (end stage renal disease) on dialysis Current Visit: Yes Status: Chronic Plan to address problem: Patient received hemodialysis yesterday. We'll dialyze again tomorrow. (2) Anemia in end-stage renal disease Current Visit: No Status: Acute Plan to address problem: Give erythropoietin on dialysis (3) Atypical chest pain Current Visit: No Status: Acute Plan to address problem: Management by hospitalist (4) Chronic systolic heart failure Current Visit: No Status: Acute Plan to address problem: Fluid removal on dialysis. Continue beta nikolas (5) Hyperkalemia Current Visit: No Status: Acute Plan to address problem: Patient's potassium is again high. We'll start her on [place] as an outpatient. (6) Hypertensive chronic kidney disease with stage 5 chronic kidney disease or end stage renal disease Current Visit: No Status: Acute Plan to address problem: Resume antihypertensive medications and follow blood pressure (7) GERD (gastroesophageal reflux disease) Current Visit: No Status: Chronic Qualifiers: Esophagitis presence: without esophagitis Qualified Code(s): K21.9 - Gastro -esophageal reflux disease without esophagitis Plan to address problem: Continue proton pump inhibitor and Reglan as needed Subjective Date of service: 11/14/17 Principal diagnosis: end-stage renal disease with atypical chest pain Interval history: Patient seen lying in bed. She feels better. She wants to go home. Says a Medicare officer is coming to her home Objective - Exam Narrative Exam: Elderly F Sia, female lying in bed in no acute distress HEENT: NCAT, pink oral mucous membrane Neck: Supple, no venous distention CVS: S1S2 RRR with no murmur, rub or gallop Chest: Clear to auscultation Abdomen: Protuberant, soft, vague epigastric , no organomegaly, bowel sounds are present Extremities: No edema, no clubbing Skin: Warm and dry, no rash Neuro: Awake, alert no focal deficits - Vital Signs Vital signs: Vital Signs - 12hr 11/14/17 11/14/17 11/14/17 04:11 04:12 07:43 Temperature 98.6 F 98.5 F Pulse Rate 68 69 68 Respiratory 20 18 Rate Blood Pressure 131/55 145/47 O2 Sat by Pulse 100 100 100 Oximetry - Lab 11/14/17 03:40 11/14/17 03:40 Most recent lab results Calcium 8.7 mg/dL (8.4-10.2) 11/14/17 03:40 Phosphorus 7.70 mg/dL (2.5-4.5) H 11/14/17 03:40
--- NOTE | 2017-11-14 13:32 | Discharge Summary ---
Providers - Providers Date of Admission: 11/12/17 13:04 Date of discharge: 11/14/17 Attending physician: RANDI ZACARIAS 11/12/17 11:53 Consult to Physician [CONS] Urgent Consulting Provider: FARZANA LUGO Reason For Exam: esrd Notified:: awaiting cvall back Primary care physician: SUPERVISOR ROLLER SHOP Hospitalization Condition: Stable Disposition: DC-01 TO HOME OR SELFCARE Time spent for discharge: 31 min Core Measure Documentation - Palliative Care Palliative Care/ Comfort Measures: Not Applicable - Core Measures Any of the following diagnoses?: none Exam - Constitutional Vitals: Temp Pulse Resp BP Pulse Ox 97.8 F 69 16 163/73 100 11/14/17 13:00 11/14/17 13:00 11/14/17 13:00 11/14/17 13:00 11/14/17 09:05 General appearance: Present: no acute distress, well-nourished - EENT Eyes: Present: PERRL, EOM intact - Neck Neck: Present: supple, normal ROM - Respiratory Respiratory effort: normal Respiratory: negative: rales, rhonchi, wheezing - Cardiovascular Rhythm: regular Heart Sounds: Present: S1 & S2 - Extremities Extremities: no ischemia, No edema - Abdominal General gastrointestinal: Present: soft, non-tender, non-distended, normal bowel sounds - Integumentary Integumentary: Present: clear, warm - Musculoskeletal Musculoskeletal: strength equal bilaterally - Psychiatric Psychiatric: appropriate mood/affect, cooperative - Neurologic Neurologic: CNII-XII intact, moves all extremities Plan Activity: no restrictions Diet: renal, other (Cardiac diet) Additional Instructions: Follow renal, hemodialysis per schedule Follow up with: ALEJO ROCHE MD [Primary Care Provider] - 3-5 Days NOAH UREÑA MD [Staff Physician] - 7 Days Prescriptions: oxyCODONE /ACETAMINOPHEN [Percocet 5/325 mg] 1 tab PO QHS PRN #5 tablet PRN Reason: Pain, Moderate (4-6)
[2017-11-14 14:22] VITALS: BP 124/41
== END 2017-11-14 15:00 | disposition home health service (06) | DRG 313 ==
LOC: ED 05:45 → 2B-ACE 13:04
PROVIDERS: ADMIT Internal Medicine; ATTEND Internal Medicine
PROC: 5A1D70Z Performance of Urinary Filtration, Intermittent, Less than 6 Hours Per Day (ICD-10-PCS; principal; 2017-11-12)
PROC: 5A1D70Z Performance of Urinary Filtration, Intermittent, Less than 6 Hours Per Day (ICD-10-PCS; 2017-11-14)
DX: R07.89 Other chest pain (principal); N18.6 End stage renal disease; I13.2 Hypertensive heart and chronic kidney disease with heart failure and with stage 5 chronic kidney disease, or end stage renal disease; I50.42 Chronic combined systolic (congestive) and diastolic (congestive) heart failure; E87.5 Hyperkalemia; G89.4 Chronic pain syndrome; F41.9 Anxiety disorder, unspecified; M10.9 Gout, unspecified; E11.22 Type 2 diabetes mellitus with diabetic chronic kidney disease; I25.10 Atherosclerotic heart disease of native coronary artery without angina pectoris; F17.200 Nicotine dependence, unspecified, uncomplicated; D63.1 Anemia in chronic kidney disease; K21.9 Gastro-esophageal reflux disease without esophagitis; Z82.49 Family history of ischemic heart disease and other diseases of the circulatory system; Z79.899 Other long term (current) drug therapy; Z86.73 Personal history of transient ischemic attack (TIA), and cerebral infarction without residual deficits; I25.2 Old myocardial infarction; Z98.51 Tubal ligation status; Z90.49 Acquired absence of other specified parts of digestive tract; Z98.61 Coronary angioplasty status
CPT/HCPCS: 36415; 70450; 71045; 74176; 80048; 84100; 84484; 85007; 85025; 85027; 93005; 93010; 96374; 96375; A9270-GY; J1815; J2270

== ENCOUNTER 2017-11-19 10:45 | Inpatient (IN) | payer MEDICARE ==
[2017-11-19] MEDS ORDERED: ASPIRIN PO ONE (10:55)
[2017-11-19 11:28] LABS: Basophils % (Auto) 0.2 % (0.0-1.8); Eosinophils # (Auto) 0.1 K/mm3 (0.0-0.4); Eosinophils % (Auto) 1.7 % (0.0-4.3); Hematocrit 27.9 % (30.3-42.9); Hemoglobin 9.1 gm/dl (10.1-14.3); Lymphocytes # (Auto) 1.2 K/mm3 (1.2-5.4); Lymphocytes % (Auto) 28.8 % (13.4-35.0); Mean Corpuscular HGB Conc 33 % (30-34); Mean Corpuscular Hemoglobin 28 pg (28-32); Mean Corpuscular Volume 85 fl (79-97); Monocytes # (Auto) 0.4 K/mm3 (0.0-0.8); Monocytes % (Auto) 10.2 % (0.0-7.3); Platelet Count 250 K/mm3 (140-440); Red Blood Count 3.27 M/mm3 (3.65-5.03); Red Cell Distribution Width 20.1 % (13.2-15.2)
[2017-11-19 11:45] LABS: Calcium 9.6 mg/dL (8.4-10.2)
[2017-11-19] MEDS ORDERED: KIONEX PO ONE (12:12)
[2017-11-19] MEDS ORDERED: D50W (25GM) Syringe IV ONE ×2 (12:12→14:20)
[2017-11-19] MEDS ORDERED: PROVENTIL IH ONE (12:12)
--- NOTE | 2017-11-19 12:17 | Emergency Department Report ---
ED Chest Pain HPI - General Chief Complaint: Chest Pain Stated Complaint: CHEST PAIN Time Seen by Provider: 11/19/17 12:07 Source: patient, EMS Mode of arrival: Stretcher Limitations: No Limitations - History of Present Illness Initial Comments: Patient is 67 years old female history of end-stage renal disease on hemodialysis. Patient presented to the ER with left-sided chest pain started last night while she was sleeping. Patient describes her pain as tightness radiated to her left arm. Patient stated that recently she had stent put in at [facility]. Patient stated that last dialysis was Sunday. She also complained of shortness of breath but denied any cough or fever. MD Complaint: chest pain -: Last night Onset: during rest Pain Location: left chest Severity: moderate Severity scale (0 -10): 6 Quality: tightness, heaviness - Related Data Home Medications Medication Instructions Recorded Confirmed Last Taken Cinacalcet [Sensipar] 60 mg PO QDAY 09/27/17 11/12/17 10/11/17 Sennosides [Senna Lax] 8.6 mg PO DAILY PRN 09/27/17 11/12/17 10/11/17 ISOSORBIDE MONOnitrate [Imdur ER] 30 mg PO QDAY 10/14/17 11/12/17 Unknown Dialyvite 800 Plus D Wafer 800 mg PO DAILY 11/05/17 11/12/17 Unknown Pantoprazole Sodium 40 mg PO DAILY 11/05/17 11/12/17 Unknown Previous Rx's Medication Instructions Recorded Last Taken Type Carvedilol [Coreg] 12.5 mg PO BID #60 tablet 06/27/17 10/11/17 Rx Clopidogrel [Plavix] 75 mg PO QDAY #30 tablet 06/27/17 10/11/17 Rx Dicyclomine [Bentyl] 10 mg PO TID PRN #30 capsule 09/13/17 10/11/17 Rx Atorvastatin Calcium [Lipitor] 40 mg PO DAILY #30 tablet 11/06/17 Unknown Rx oxyCODONE /ACETAMINOPHEN [Percocet 1 tab PO QHS PRN #5 tablet 11/14/17 Unknown Rx 5/325 mg] Allergies Allergy/AdvReac Type Severity Reaction Status Date / Time No Known Allergies Allergy Verified 10/21/17 05:14 Heart Score - HEART Score History: Moderately suspicious EKG: Non-specific Age: > 65 Risk factors: > 3 risk factors or hx of atherosclerotic disease Troponin: 1-3x normal limit HEART Score: 7 - Critical Actions Critical Actions: >7 pts:50-65% risk of adverse cardiac event. Early invasive measures ED Review of Systems ROS: Stated complaint: CHEST PAIN Other details as noted in HPI Comment: All other systems reviewed and negative Constitutional: denies: chills, fever Respiratory: shortness of breath, SOB with exertion. denies: cough, orthopnea Cardiovascular: chest pain, dyspnea on exertion, orthopnea. denies: palpitations Gastrointestinal: denies: abdominal pain, nausea, vomiting, diarrhea, constipation Neurological: denies: headache, weakness, numbness, paresthesias, confusion, abnormal gait ED Past Medical Hx - Past Medical History Hx Hypertension: Yes Hx CVA: Yes (x 2) Hx Heart Attack/AMI: Yes Hx Congestive Heart Failure: Yes Hx Diabetes: No Hx Deep Vein Thrombosis: No Hx GERD: No Hx Liver Disease: No Hx Renal Disease: Yes (Dialysis MWF) Hx Sickle Cell Disease: No Hx Arthritis: No Hx Headaches / Migraines: No Hx Seizures: No Hx Kidney Stones: No Hx Asthma: No Hx COPD: No Hx Tuberculosis: No Hx Dementia: No Hx HIV: No Additional medical history: enlarged heart, gout, LCH CORONARY ANGIOGRAPHY [facility] 08/06/2017-NONOBSTRUCTING HEART PER DR GIDEON BENOIT - Surgical History Hx Coronary Stent: No Hx Open Heart Surgery: No Hx Pacemaker: No Hx Internal Defibrillator: No Hx Cholecystectomy: No Hx Appendectomy: No Hx Breast Surgery: No Additional Surgical History: tubal ligation, vas cath. LUE fistula. cardiac workup includes a stress test on 12/21/2016 that was unremarkable. Patient status post PCI of RCA with subsequent subacute thrombus of the proximal RCA stent and angioplasty with resolution of thrombosis on November 2016. AICD placement Aug 2017. PCI 03/22/17 of RCA. 05/01/17 neg Lexiscan stress - Social History Smoking Status: Never Smoker Substance Use Type: None - Medications Home Medications: Home Medications Medication Instructions Recorded Confirmed Last Taken Type Carvedilol [Coreg] 12.5 mg PO BID #60 tablet 06/27/17 11/12/17 10/11/17 Rx Clopidogrel [Plavix] 75 mg PO QDAY #30 tablet 06/27/17 11/12/17 10/11/17 Rx Dicyclomine [Bentyl] 10 mg PO TID PRN #30 capsule 09/13/17 11/12/17 10/11/17 Rx Cinacalcet [Sensipar] 60 mg PO QDAY 09/27/17 11/12/17 10/11/17 History Sennosides [Senna Lax] 8.6 mg PO DAILY PRN 09/27/17 11/12/17 10/11/17 History ISOSORBIDE MONOnitrate [Imdur ER] 30 mg PO QDAY 10/14/17 11/12/17 Unknown History Dialyvite 800 Plus D Wafer 800 mg PO DAILY 11/05/17 11/12/17 Unknown History Pantoprazole Sodium 40 mg PO DAILY 11/05/17 11/12/17 Unknown History Atorvastatin Calcium [Lipitor] 40 mg PO DAILY #30 tablet 11/06/17 11/12/17 Unknown Rx oxyCODONE /ACETAMINOPHEN [Percocet 1 tab PO QHS PRN #5 tablet 11/14/17 Unknown Rx 5/325 mg] ED Physical Exam - General Limitations: No Limitations General appearance: alert, in no apparent distress - Head Head exam: Present: atraumatic, normocephalic, normal inspection - Eye Eye exam: Present: normal appearance, PERRL - ENT ENT exam: Present: normal exam, normal orophraynx, mucous membranes moist - Neck Neck exam: Present: normal inspection, full ROM. Absent: tenderness, meningismus - Respiratory Respiratory exam: Present: normal lung sounds bilaterally. Absent: respiratory distress, wheezes, rales, rhonchi, stridor, chest wall tenderness, accessory muscle use, decreased breath sounds, prolonged expiratory - Cardiovascular Cardiovascular Exam: Present: regular rate, normal rhythm, normal heart sounds - GI/Abdominal GI/Abdominal exam: Present: soft, normal bowel sounds. Absent: distended, tenderness, guarding, rebound, rigid, diminished bowel sounds, organomegaly, mass, bruit, pulsatile mass, hernia - Extremities Exam Extremities exam: Present: normal inspection, full ROM, normal capillary refill. Absent: tenderness, pedal edema, joint swelling, calf tenderness - Back Exam Back exam: Present: normal inspection, full ROM. Absent: tenderness, CVA tenderness (R), CVA tenderness (L), muscle spasm, paraspinal tenderness, vertebral tenderness - Neurological Exam Neurological exam: Present: alert, oriented X3, CN II-XII intact, normal gait - Skin Skin exam: Present: warm, intact, normal color ED Course Vital Signs 11/19/17 10:51 Temperature 97 F L Pulse Rate 85 Respiratory 16 Rate Blood Pressure 180/100 O2 Sat by Pulse 99 Oximetry MONE score - Mone Score Age > 65: (1) Yes Aspirin use within the Past 7 Days: (1) Yes 3 or more CAD Risk Factors: (1) Yes 2 or more Angina events in past 24 hrs: (0) No Known CAD with more than 50% Stenosis: (1) Yes Elevated Cardiac Markers: (1) Yes ST Deviation Greater than 0.5mm: (0) No MONE Score: 5 ED Medical Decision Making - Lab Data Result diagrams: 11/19/17 11:00 11/19/17 11:00 - EKG Data -: EKG Interpreted by Me EKG shows normal: sinus rhythm - EKG Data Interpretation: no acute changes - Medical Decision Making Discussed with Dr. Kurtz, I presented the patient to him, he agreed to consult on the patient and he stated that he will put DIALYSIS order. Discussed with Dr. CASTILLO, I presented the patient , he agreed to admit to his service. Critical Care Time: Yes Critical care time in (mins) excluding proc time.: 30 Critical care attestation.: If time is entered above; I have spent that time in minutes in the direct care of this critically ill patient, excluding procedure time. ED Disposition Clinical Impression: Elevated troponin, Chest pain, Acute hyperkalemia Disposition: OP ADMIT IP TO THIS HOSP Is pt being admited?: Yes Condition: Stable Instructions: Chest Pain (ED)
[2017-11-19 12:20] LABS: Chol/HDL Ratio 2.69 %
--- NOTE | 2017-11-19 12:25 | History and Physical Report ---
History of Present Illness Chief complaint: Im hurting again History of present illness: 67 YO Female with HTN, CVA, Combined CHF( EF 30%), DM, ESRD on HD(M,W,F), GERD, CAD, Chronic Pain, Nicotine Dependence presents to ED for evaluation. Pt states that she experienced pain all over her body over the past 1 day. Pt symptoms worsened overnight. Pt went to dialysis today and was unable to receive treatment due to the aformentioned symptoms. Pt denies fever, chills, palpitations, productive cough, orthopnea, difficulty breathing, NVD, syncope, vertigo, prolonged immobility/travel, individual/family history of DVT/PE. Pt seen and evaluated in ED and found to have evidence of fluid overload, as well as acute respiratory failure and CHF exacerbation. Pt treated with supplemental oxygen, nebulizer therapy, NIPPV. Nephrology team consulted for urgent dialysis. Past History Past Medical History: CAD, diabetes, ESRD, GERD, heart failure, hypertension, stroke Past Surgical History: Other (AICD Placement, Angioplasty, Stent placement) Social history: , smoking Family history: hypertension Medications and Allergies Allergies Allergy/AdvReac Type Severity Reaction Status Date / Time No Known Allergies Allergy Verified 10/21/17 05:14 Home Medications Medication Instructions Recorded Confirmed Last Taken Type Carvedilol [Coreg] 12.5 mg PO BID #60 tablet 06/27/17 11/19/17 11/19/17 Rx Clopidogrel [Plavix] 75 mg PO QDAY #30 tablet 06/27/17 11/19/17 11/19/17 Rx Dicyclomine [Bentyl] 10 mg PO TID PRN #30 capsule 09/13/17 11/19/17 11/19/17 Rx Cinacalcet [Sensipar] 60 mg PO QDAY 09/27/17 11/19/17 11/19/17 History Sennosides [Senna Lax] 8.6 mg PO DAILY PRN 09/27/17 11/19/17 11/19/17 History ISOSORBIDE MONOnitrate [Imdur ER] 30 mg PO QDAY 10/14/17 11/19/17 11/19/17 History Dialyvite 800 Plus D Wafer 800 mg PO DAILY 11/05/17 11/19/17 11/19/17 History Pantoprazole Sodium 40 mg PO DAILY 11/05/17 11/19/17 11/19/17 History Atorvastatin Calcium [Lipitor] 40 mg PO DAILY #30 tablet 11/06/17 11/19/1711/19 Rx oxyCODONE /ACETAMINOPHEN [Percocet 1 tab PO QHS PRN #5 tablet 11/14/17 11/19/17 11/18/17 Rx 5/325 mg] Review of Systems Constitutional: chronic pain Ears, nose, mouth and throat: no ear pain, no ear discharge, no tinnitis, no decreased hearing, no nose pain Breasts: no change in shape, no swelling, no mass Cardiovascular: no chest pain, no orthopnea, no palpitations, no lightheadedness Respiratory: no cough, no cough with sputum, no excessive sputum, no hemoptysis Gastrointestinal: no abdominal pain, no nausea, no vomiting, no diarrhea, no constipation Genitourinary Female: no pelvic pain, no flank pain, no menorrhagia, no dysuria Rectal: no pain, no incontinence, no bleeding Musculoskeletal: no neck stiffness, no neck pain, no shooting arm pain, no arm numbness/tingling, no low back pain, no shooting leg pain, no leg numbness/ tingling Integumentary: no rash, no pruritis, no redness, no sores, no wounds, no jaundice Neurological: no transient paralysis, no paralysis, no weakness, no parathesias , no numbness, no tingling, no seizures Psychiatric: no anxiety, no memory loss, no change in sleep habits, no sleep disturbances, no insomnia, no hypersomnia, no change in libido Endocrine: no cold intolerance, no heat intolerance, no polyphagia, no excessive thirst, no polydipsia, no polyuria Hematologic/Lymphatic: no easy bruising, no easy bleeding, no lymphadenopathy, no lymphedema Allergic/Immunologic: no urticaria, no allergic rhinitis, no wheezing Exam - Constitutional Vitals: Temp Pulse Resp BP Pulse Ox 97 F L 85 16 180/100 99 11/19/17 10:51 11/19/17 10:51 11/19/17 10:51 11/19/17 10:51 11/19/17 10:51 General appearance: Present: mild distress - EENT Eyes: Present: PERRL ENT: hearing intact, clear oral mucosa - Neck Neck: Present: supple, normal ROM - Respiratory Respiratory effort: normal Respiratory: bilateral: diminished, rhonchi - Cardiovascular Heart Sounds: Present: S1 & S2. Absent: rub, click - Extremities Extremities: pulses symmetrical, No edema Extremity abnormal: edema Peripheral Pulses: within normal limits - Abdominal General gastrointestinal: Present: soft, non-tender, non-distended, normal bowel sounds Female genitourinary: Present: normal - Integumentary Integumentary: Present: clear, warm, dry - Musculoskeletal Musculoskeletal: generalized weakness - Psychiatric Psychiatric: appropriate mood/affect, intact judgment & insight - Neurologic Neurologic: CNII-XII intact, moves all extremities Results - Labs CBC & Chem 7: 11/19/17 11:00 11/19/17 11:00 Labs: Abnormal lab results 11/19/17 11/19/17 Range/Units 11:00 11:00 WBC 4.1 L (4.5-11.0) K/mm3 RBC 3.27 L (3.65-5.03) M/mm3 Hgb 9.1 L (10.1-14.3) gm/dl Hct 27.9 L (30.3-42.9) % RDW 20.1 H (13.2-15.2) % [place] % (Auto) 10.2 H (0.0-7.3) % Potassium 6.3 H* (3.6-5.0) mmol/L Chloride 95.0 L (98-107) mmol/L BUN 57 H (7-17) mg/dL Creatinine 9.0 H (0.7-1.2) mg/dL Troponin T 0.133 H* (0.00-0.029) ng/mL HDL Cholesterol 62 H (40-59) mg/dL Assessment and Plan - Patient Problems (1) ESRD (end stage renal disease) Current Visit: Yes Status: Acute Plan to address problem: nephrology consulted for dialysis, fluid restriction, monitor uop q shift, (2) CHF (congestive heart failure) Current Visit: Yes Status: Acute Qualifiers: Congestive heart failure type: combined Congestive heart failure chronicity : acute Qualified Code(s): I50.41 - Acute combined systolic (congestive) and diastolic (congestive) heart failure Plan to address problem: Fluid restriction, afterload reduction, monitor uop q shift,urgent dialysis, telemetry monitoring, supplemental oxygen (3) Hyperkalemia Current Visit: Yes Status: Acute Plan to address problem: kayexelate, urgent dialysis (4) Malnutrition Current Visit: Yes Status: Acute Plan to address problem: moderate-severe: encourage increased protein intake. (5) DVT prophylaxis Current Visit: Yes Status: Acute
[2017-11-19] MEDS ORDERED: TYLENOL PO PRN (12:29)
[2017-11-19] MEDS ORDERED: PROVENTIL IH PRN (12:29)
[2017-11-19] MEDS ORDERED: ZOFRAN IV PRN (12:29)
[2017-11-19] MEDS ORDERED: NACL 0.9% 100 ML IV PRN (12:36)
--- NOTE | 2017-11-19 12:48 | XRay Report ---
AP CHEST: HISTORY: chest pain Cardiomegaly and pulmonary venous congestion appear relatively stable since 11/12/17. The lungs are generally clear. No evidence for pneumonia, CHF or pneumothorax. The bony structures are grossly intact. IMPRESSION: Stable cardiomegaly and pulmonary venous congestion.
[2017-11-19] MEDS ORDERED: DILAUDID IV ONE (14:10)
[2017-11-19] MEDS ORDERED: DILAUDID ONE (14:21)
[2017-11-19] MEDS ORDERED: ASPIRIN ONE (14:21)
[2017-11-19] MEDS ORDERED: NACL 0.9 (PRIMING MACHINE ONLY DIALYSIS) MC ONE (17:26)
[2017-11-19] MEDS ORDERED: KIONEX ONE (19:06)
[2017-11-19] MEDS: PEPCID PO SCH (22:06)
[2017-11-19] MEDS: MORPHINE IV PRN (22:07)
--- NOTE | 2017-11-19 23:42 | Consultation ---
History of Present Illness - Reason for Consult Consult date: 11/19/17 end stage renal disease, hyperkalemia Requesting physician: RAMON TATE - History of Present Illness This is a 67 yo F with past medical history of HTN, CVA, chronic systolic CHF( EF 30%), DM, ESRD on HD on MWF schedule, GERD, CAD, Chronic Pain, with multiple hospitalizations in the past due to recurrent chest pain/abdominal pain, who presents again with diffuse body aches incl. chest and abdominal pain. Pt went to dialysis today and was unable to receive treatment due to the aforementioned symptoms. In ER labs showed significantly elevated K > 6.3. Renal consult requested for management of hyperkalemia/ESRD. Pt denies fever, chills, palpitations, productive cough, orthopnea, SOB, NVD, syncope, vertigo. Past History Past Medical History: CAD, diabetes, ESRD, GERD, heart failure, hypertension, stroke Past Surgical History: Other (AICD Placement, Angioplasty, Stent placement) Social history: , smoking Family history: hypertension Medications and Allergies Allergies Allergy/AdvReac Type Severity Reaction Status Date / Time No Known Allergies Allergy Verified 10/21/17 05:14 Home Medications Medication Instructions Recorded Confirmed Last Taken Type Carvedilol [Coreg] 12.5 mg PO BID #60 tablet 06/27/17 11/19/17 11/19/17 Rx Clopidogrel [Plavix] 75 mg PO QDAY #30 tablet 06/27/17 11/19/17 11/19/17 Rx Dicyclomine [Bentyl] 10 mg PO TID PRN #30 capsule 09/13/17 11/19/17 11/19/17 Rx Cinacalcet [Sensipar] 60 mg PO QDAY 09/27/17 11/19/17 11/19/17 History Sennosides [Senna Lax] 8.6 mg PO DAILY PRN 09/27/17 11/19/17 11/19/17 History ISOSORBIDE MONOnitrate [Imdur ER] 30 mg PO QDAY 10/14/17 11/19/17 11/19/17 History Dialyvite 800 Plus D Wafer 800 mg PO DAILY 11/05/17 11/19/17 11/19/17 History Pantoprazole Sodium 40 mg PO DAILY 11/05/17 11/19/17 11/19/17 History Atorvastatin Calcium [Lipitor] 40 mg PO DAILY #30 tablet 11/06/17 11/19/1711/19 Rx oxyCODONE /ACETAMINOPHEN [Percocet 1 tab PO QHS PRN #5 tablet 11/14/17 11/19/17 11/18/17 Rx 5/325 mg] Active Meds: Active Medications Acetaminophen (Tylenol) 650 mg PO Q4H PRN PRN Reason: Pain MILD(1-3)/Fever >100.5/SANCHEZ Albuterol (Proventil) 2.5 mg IH Q4HRT PRN PRN Reason: Shortness Of Breath Famotidine (Pepcid) 10 mg PO BID ETHAN Last Admin: 11/19/17 22:06 Dose: 10 mg Sodium Chloride (Nacl 0.9%) 100 mls @ 999 mls/hr IV JOAN PRN PRN Reason: Hypotension Morphine Sulfate (Morphine) 1 mg IV Q8H PRN PRN Reason: Pain , Severe (7-10) Last Admin: 11/19/17 22:07 Dose: 1 mg Ondansetron HCl (Zofran) 4 mg IV Q8H PRN PRN Reason: N/V unrelieved by Regjermain Review of Systems All systems: negative Cardiovascular: chest pain Gastrointestinal: abdominal pain Exam - Vital Signs Vital signs: Vital Signs Temp Pulse Resp BP Pulse Ox 97 F L 85 16 180/100 99 11/19/17 10:51 11/19/17 10:51 11/19/17 10:51 11/19/17 10:51 11/19/17 10:51 - General Appearance General appearance: well-developed, well-nourished, appears stated age EENT: ATNC, PERRL, mucous membranes moist Neck: Present: neck supple Respiratory: Clear to Ascultation Heart: regular, S1S2 Gastrointestinal: Present: normoactive bowel sounds Integumentary: no rash, other (no edema ) Neurologic: no focal deficit, alert and oriented x3, strength 5/5, CN 3-12 intact Psychiatric: mood/affect appropriate Results - Lab Results 11/19/17 11:00 11/19/17 11:00 Most recent lab results Calcium 9.6 mg/dL (8.4-10.2) 11/19/17 11:00 Assessment and Plan - Patient Problems (1) Hyperkalemia Current Visit: Yes Status: Acute Plan to address problem: HD today using 2K bath, cont 2g K renal diet. (2) Chest pain Current Visit: Yes Status: Acute Plan to address problem: likely atypical chest pain.mild elevation of troponins likely due to ESRD. follow cardiology recommendations (3) ESRD (end stage renal disease) Current Visit: Yes Status: Chronic Plan to address problem: cont HD on MWF schedule (4) CHF (congestive heart failure) Current Visit: Yes Status: Acute Qualifiers: Congestive heart failure type: combined Congestive heart failure chronicity : acute Qualified Code(s): I50.41 - Acute combined systolic (congestive) and diastolic (congestive) heart failure Plan to address problem: fluid removal with HD. Na/fluid restriction
[2017-11-20] MEDS: MORPHINE IV PRN ×2 (06:21→14:22)
[2017-11-20 08:01] LABS: Calcium 9.4 mg/dL (8.4-10.2)
[2017-11-20] MEDS: PEPCID PO SCH (10:06)
--- NOTE | 2017-11-20 11:12 | Progress Note ---
Assessment and Plan - Patient Problems (1) Hyperkalemia Current Visit: Yes Status: Acute Plan to address problem: K improved with HD. cont 2g K renal diet. (2) Chest pain Current Visit: Yes Status: Acute Plan to address problem: likely atypical chest pain.mild elevation of troponins likely due to ESRD. follow cardiology recommendations (3) ESRD (end stage renal disease) Current Visit: Yes Status: Chronic Plan to address problem: cont HD on MWF schedule (4) CHF (congestive heart failure) Current Visit: Yes Status: Acute Qualifiers: Congestive heart failure type: combined Congestive heart failure chronicity : acute Qualified Code(s): I50.41 - Acute combined systolic (congestive) and diastolic (congestive) heart failure Plan to address problem: fluid removal with HD. Na/fluid restriction Subjective Date of service: 11/20/17 Principal diagnosis: ESRD Interval history: pt awake alert, reports improved CP/abd pain Objective - Vital Signs Vital signs: Vital Signs - 12hr 11/19/17 11/20/17 11/20/17 23:40 03:56 06:21 Temperature 98.7 F 98.9 F Pulse Rate 83 Respiratory 20 20 20 Rate Blood Pressure 158/59 156/61 O2 Sat by Pulse 100 Oximetry 11/20/17 11/20/17 07:56 10:00 Temperature 97.5 F L Pulse Rate 82 Respiratory 18 Rate Blood Pressure 143/53 O2 Sat by Pulse 96 100 Oximetry - General Appearance General appearance: well-developed, well-nourished, appears stated age EENT: ATNC, PERRL, mucous membranes moist Neck: no JVD Respiratory: Present: Clear to Ascultation Cardiology: regular, S1S2 Gastrointestinal: normoactive bowel sounds Integumentary: no rash, other (no edema ) Neurologic: no focal deficit, alert and oriented x3, strength 5/5, CN 3-12 intact Psychiatric: mood/affect appropriate, cooperative - Lab 11/19/17 11:00 11/20/17 06:09 Most recent lab results Calcium 9.4 mg/dL (8.4-10.2) 11/20/17 06:09
--- NOTE | 2017-11-20 14:41 | Consultation ---
History of Present Illness Consult date: 11/20/17 Requesting physician: LULI GARIBAY Consult reason: chest pain History of present illness: The patient is a 67 YO female with a past medical history significant for CAD, s /p PCI (PCI of RCA in 08/2016 with subsequent subacute thrombus of the proximal RCA stent and balloon angioplasty with resolution of thrombus on 11/28/2016, s/p additional PCI of RCA on 03/22/2017 @ [place]), dilated CMP, s/p S AICD implantation at [place] on 05/17/2017, systolic HF, ESRD on HD, HTN, PVD, recurrent chest pain, paz's esophagitis and diverticulitis, and tobacco use. She is followed in our office by Dr. Ford. She is a rather poor historian. She presented with c/o chest pain and epigastric pain for several days prior to arrival. She describes her chest pain as a nonexertional, nonradiating intermittent stabbing precordial pain which is reproducible by palpation. She denies any n/v, palpitations, SOB, diaphoresis, dizziness or syncope. No exacerbating or relieving factors. On evaluation, her primary complaint is abdominal pain. She is requesting IV morphine. LHC done 07/27/2017 at [place] showed nonobstructive CAD with severely reduced LVEF and elevated LVEDP (LM: LI, LAD: mild to moderate LI, LCx: LI, RCA: dominant, mild-moderate LI with patent previous RCA stent, LVEDP: 38 mmHg, LVEF 25 % with diffuse global hypokinesis). Echo done 07/27/2017 showed EF 20-25%, mildly dilated LA, moderate to severe TR , moderate MR, moderately reduced RV systolic function, RVSP 63mmHg, moderate pulm HTN. Lexiscan MPI stress test done 10/04/2017 showed suggestion of prior infarction with mild residual ischemia in the left circ territory. Past History Past Medical History: CAD, diabetes, ESRD, GERD, heart failure, hypertension, stroke Past Surgical History: Other (AICD Placement, Angioplasty, Stent placement) Social history: , smoking Family history: hypertension Medications and Allergies Allergies Allergy/AdvReac Type Severity Reaction Status Date / Time No Known Allergies Allergy Verified 10/21/17 05:14 Home Medications Medication Instructions Recorded Confirmed Last Taken Type Carvedilol [Coreg] 12.5 mg PO BID #60 tablet 06/27/17 11/19/17 11/19/17 Rx Clopidogrel [Plavix] 75 mg PO QDAY #30 tablet 06/27/17 11/19/17 11/19/17 Rx Dicyclomine [Bentyl] 10 mg PO TID PRN #30 capsule 09/13/17 11/19/17 11/19/17 Rx Cinacalcet [Sensipar] 60 mg PO QDAY 09/27/17 11/19/17 11/19/17 History Sennosides [Senna Lax] 8.6 mg PO DAILY PRN 09/27/17 11/19/17 11/19/17 History ISOSORBIDE MONOnitrate [Imdur ER] 30 mg PO QDAY 10/14/17 11/19/17 11/19/17 History Dialyvite 800 Plus D Wafer 800 mg PO DAILY 11/05/17 11/19/17 11/19/17 History Pantoprazole Sodium 40 mg PO DAILY 11/05/17 11/19/17 11/19/17 History Atorvastatin Calcium [Lipitor] 40 mg PO DAILY #30 tablet 11/06/17 11/19/1711/19 Rx Pantoprazole [Protonix] 40 mg PO QDAY #30 tablet 11/20/17 Unknown Rx oxyCODONE /ACETAMINOPHEN [Percocet 1 tab PO QHS PRN #5 tablet 11/20/17 Unknown Rx 5/325 mg] Active Meds: Active Medications Acetaminophen (Tylenol) 650 mg PO Q4H PRN PRN Reason: Pain MILD(1-3)/Fever >100.5/SANCHEZ Albuterol (Proventil) 2.5 mg IH Q4HRT PRN PRN Reason: Shortness Of Breath Famotidine (Pepcid) 10 mg PO BID ETHAN Last Admin: 11/20/17 10:06 Dose: 10 mg Sodium Chloride (Nacl 0.9%) 100 mls @ 999 mls/hr IV JOAN PRN PRN Reason: Hypotension Morphine Sulfate (Morphine) 1 mg IV Q8H PRN PRN Reason: Pain , Severe (7-10) Last Admin: 11/20/17 14:22 Dose: 1 mg Ondansetron HCl (Zofran) 4 mg IV Q8H PRN PRN Reason: N/V unrelieved by Reglan Review of Systems Constitutional: no weight loss, no weight gain, no fever, no chills, no sweats Ears, nose, mouth and throat: no ear pain, no nose pain, no sinus pressure, no sinus pain Cardiovascular: chest pain, no orthopnea, no palpitations, no rapid/irregular heart beat, no edema, no syncope, no lightheadedness, no shortness of breath, no dyspnea on exertion Respiratory: no cough, no shortness of breath, no dyspnea on exertion, no congestion, no wheezing, no pain on inspiration Gastrointestinal: abdominal pain, no nausea, no vomiting, no diarrhea, no constipation, no change in bowel habits Genitourinary Female: no pelvic pain, no flank pain Musculoskeletal: no neck stiffness, no neck pain, no shooting arm pain, no arm numbness/tingling, no low back pain, no shooting leg pain Integumentary: no rash, no pruritis, no redness, no sores, no wounds Neurological: no head injury, no paralysis, no weakness, no parathesias, no numbness, no tingling, no seizures, no syncope Psychiatric: no anxiety Endocrine: no cold intolerance, no heat intolerance Hematologic/Lymphatic: no easy bruising, no easy bleeding, no lymphadenopathy Allergic/Immunologic: no urticaria, no wheezing, no persistent infections Physical Examination Vital Signs Temp Pulse Resp BP Pulse Ox 97 F L 85 16 180/100 99 11/19/17 10:51 11/19/17 10:51 11/19/17 10:51 11/19/17 10:51 11/19/17 10:51 General appearance: no acute distress HEENT: Positive: PERRL, Normocephaly, Mucus Membranes Moist Neck: Positive: neck supple, trachea midline Cardiac: Positive: Reg Rate and Rhythm, S1/S2, Systolic Murmur Lungs: Positive: clear to auscultation Neuro: Positive: Grossly Intact Abdomen: Positive: Soft, Tender (epigastric) Skin: Positive: Clear. Negative: Rash, Wound Musculoskeletal: No Fluid Collection, No Pain, Normal Range of Motion Extremities: Absent: edema Results 11/19/17 11:00 11/20/17 06:09 Comprehensive Metabolic Panel 11/20/17 Range/Units 06:09 Sodium 142 (137-145) mmol/L Potassium 4.8 D (3.6-5.0) mmol/L Chloride 99.8 (98-107) mmol/L Carbon Dioxide 30 (22-30) mmol/L BUN 29 H (7-17) mg/dL Creatinine 5.3 H (0.7-1.2) mg/dL Glucose 84 (65-100) mg/dL Calcium 9.4 (8.4-10.2) mg/dL - Imaging and Cardiology Echo: report reviewed (07/27/2017 showed EF 20-25%, mildly dilated LA, moderate to severe TR, moderate MR, moderately reduced RV systolic function, RVSP 63mmHg , moderate pulm HTN. ) Cardiac cath: report reviewed (07/27/2017 at [place] showed nonobstructive CAD with severely reduced LVEF and elevated LVEDP (LM: LI, LAD: mild to moderate LI , LCx: LI, RCA: dominant, mild-moderate LI with patent previous RCA stent, LVEDP : 38 mmHg, LVEF 25 % with diffuse global hypokinesis). ) EKG: report reviewed, image reviewed EKG interpretations - Telemetry EKG Rhythm: Sinus Rhythm - EKG Sinus rhythms and dysrhythmias: sinus rhythm Chamber hypertrophy or enlargement: left ventricular hypertro Repolarization changes or abnormalities: early repolarization due to LVH Assessment and Plan Assessment: Chest pain, atypical - reproducible with palpation; recurrent; ECG with NAF Epigastric pain Elevated troponins - ECG with no acute ischemic changes; decreased from prior admissions CAD - PCI of RCA in 08/2016 with subsequent subacute thrombus of the proximal RCA stent and balloon angioplasty with resolution of thrombus on 11/28/2016, s/p additional PCI of RCA on 03/22/2017 @ [place] Dilated I/CMP - EF 20-25% S/p S AICD 04/2017 NSVT ESRD on HD Hyperkalemia - improved Anemia Hypertension Hyperlipidemia PVD Paz's esophagitis and diverticulitis Tobacco use - cessation encouraged H/o noncompliance with medication regimen Plan: Lexiscan MPI stress test done 10/04/2017 showed suggestion of prior infarction with mild residual ischemia in the left circ territory. LHC done 07/27/2017 at [place] showed nonobstructive CAD with severely reduced LVEF and elevated LVEDP (LM: LI, LAD: mild to moderate LI, LCx: LI, RCA: dominant, mild-moderate LI with patent previous RCA stent, LVEDP: 38 mmHg, LVEF 25 % with diffuse global hypokinesis). EKG with no acute ischemic changes. Cont present cardiac management, including ASA, lipitor, coreg, plavix, imdur. Hold home ACEI in setting of recent hyperkalemia. Assessment and plan reviewed with pt at bedside. The patient has been seen in conjunction with Dr. Calvert who agrees with the assessment and plan of care.
--- NOTE | 2017-11-20 14:48 | Progress Note ---
Assessment and Plan Brief history: Radiological test: Hospitalist Physical exam: GENERAL: well-developed and well-nourished lying on bed appeared to be in no discomfort. HEENT: Normocephalic. Atraumatic. No conjunctival congestion or icterus. Patient has moist mucous membranes. NECK: Supple. Trachea midline. CHEST/LUNGS: Clear to auscultated bilaterally, breathing nonlabored. No wheezes crackles or rhonchi. HEART/CARDIOVASCULAR: Regular in rate and rhythm. S1 and S2 positive. ABDOMEN: Abdomen is soft, nontender. Patient has normal bowel sounds. SKIN: There is no rash. Warm and dry. NEURO: No focal motor deficit. Follows command. MUSCULOSKELETAL: No joint effusion or tenderness. EXTRIMITY: No edema, no cyanosis or clubbing. PSYCH: Cooperative. Subjective Date of service: 11/20/17 Principal diagnosis: ESRD Interval history: Patient seen and examined. Medical records and medication list reviewed. No acute event overnight noted by the RN. Patient denies any chest pain or difficulty breathing. Patient is tolerating diet. Discussed plan of care at bedside with patient. Objective - Constitutional Vitals: Vital Signs - 12hr 11/20/17 11/20/17 11/20/17 03:56 06:21 07:56 Temperature 98.9 F 97.5 F L Pulse Rate 82 Respiratory 20 20 18 Rate Blood Pressure 156/61 143/53 O2 Sat by Pulse 96 Oximetry 11/20/17 10:00 Temperature Pulse Rate Respiratory Rate Blood Pressure O2 Sat by Pulse 100 Oximetry - Labs CBC & Chem 7: 11/19/17 11:00 11/20/17 06:09 Labs: Abnormal lab results 11/19/17 11/19/17 11/20/17 Range/Units 13:50 20:09 06:09 BUN 29 H (7-17) mg/dL Creatinine 5.3 H (0.7-1.2) mg/dL Troponin T 0.141 H* 0.170 H* D (0.00-0.029) ng/mL 11/20/17 Range/Units 13:40 BUN (7-17) mg/dL Creatinine (0.7-1.2) mg/dL Troponin T 0.161 H* (0.00-0.029) ng/mL
--- NOTE | 2017-11-20 14:51 | Discharge Summary ---
Providers - Providers Date of Admission: 11/19/17 12:29 Date of discharge: 11/20/17 Attending physician: LULI GARIBAY 11/19/17 12:29 Consult to Physician [CONS] Stat Consulting Provider: VERA RAMSEY Reason For Exam: ESRD with hyperkalemia Notified:: YES 11/20/17 12:10 Consult to Physician [CONS] Routine Consulting Provider: EUFEMIA MORELOS Reason For Exam: chest pain Notified:: GELA MOULTON Primary care physician: MACHINE UMBRELLA TIPPER Hospitalization Condition: Stable Hospital course: This is a 67 yo F with past medical history of HTN, CVA, chronic systolic CHF( EF 30%), DM, ESRD on HD on MWF schedule, GERD, CAD, Chronic Pain, with multiple hospitalizations in the past due to recurrent chest pain/abdominal pain, who presented again with diffuse body aches including chest and abdominal pain. Patient went to dialysis and was unable to receive treatment due to chest pain. In ER labs showed significantly elevated K > 6.3. Nephrology was consulted and had emergent HD. Her K level normalized following HD. She continue to c/o chest pain, cardiology was consulted and no further intervention recommended. She was cleared for discharge by cardiology. She was discharged home in stable condition. She will follow up in cardiology office with Amanda Spicer NP, within 1 -2 weeks of hospital discharge ([phone]). Discharge diagnosis: Chest pain, atypical - currently resolved; recurrent; ECG with NAF - Lexiscan MPI stress test done 10/04/2017 showed suggestion of prior infarction with mild residual ischemia in the left circ territory. Likely due to GERD. No further recommendation per cardiology Epigastric pain, due to GERD, tolerated diet Elevated troponins - ECG with no acute ischemic changes; unchanged from prior admissions. Likely from volume overload from ESRD CAD - PCI of RCA in 08/2016 with subsequent subacute thrombus of the proximal RCA stent and balloon angioplasty with resolution of thrombus on 11/28/2016, s/p additional PCI of RCA on 03/22/2017 @ [place]. Continue ASA, lipitor, coreg, plavix, lisinopril, imdur. Dilated I/CMP - EF 20-25% - S/p S AICD 04/2017 - cont home meds including BB, ACEI - cont HD outpt ESRD on HD, nephrology was consulted Hyperkalemia, likely from ESRD, resolved with HD Anemia, due to CKD Hypertension, stable with current meds Hyperlipidemia, cont statin Randolph's esophagitis and diverticulitis - cont PPI,, high fibre diet, outpt follow up Tobacco use - cessation encouraged H/o noncompliance with medication regimen - counselled for compliance Radiological test: CXR - pulmonary venous congestion Hospitalist Physical exam: GENERAL: well-developed AAF sitting on bed appeared to be in no discomfort. HEENT: Normocephalic. Atraumatic. No conjunctival congestion or icterus. Patient has moist mucous membranes. NECK: Supple. Trachea midline. CHEST/LUNGS: Clear to auscultated bilaterally, breathing nonlabored. No wheezes crackles or rhonchi. HEART/CARDIOVASCULAR: Regular in rate and rhythm. S1 and S2 positive. ABDOMEN: Abdomen is soft, nontender. Patient has normal bowel sounds. SKIN: There is no rash. Warm and dry. NEURO: No focal motor deficit. Follows command. MUSCULOSKELETAL: No joint effusion or tenderness. EXTRIMITY: No edema, no cyanosis or clubbing. PSYCH: Cooperative. Disposition: DC-01 TO HOME OR SELFCARE Time spent for discharge: 32 minutes Core Measure Documentation - Palliative Care Palliative Care/ Comfort Measures: Not Applicable - Core Measures Any of the following diagnoses?: history only Exam - Constitutional Vitals: Temp Pulse Resp BP Pulse Ox 97.5 F L 82 18 143/53 100 11/20/17 07:56 11/20/17 07:56 11/20/17 07:56 11/20/17 07:56 11/20/17 10:00 Plan Activity: advance as tolerated Weight Bearing Status: Non-Weight Bearing Diet: renal Additional Instructions: Patient is compliant with her home medications and outpatient dialysis schedule. Follow up with: PRIMARY CARE, [Primary Care Provider] - 7 Days Prescriptions: oxyCODONE /ACETAMINOPHEN [Percocet 5/325 mg] 1 tab PO QHS PRN #5 tablet PRN Reason: Pain, Moderate (4-6) Pantoprazole [Protonix] 40 mg PO QDAY #30 tablet
[2017-11-20 17:01] VITALS: BP 152/72
[2017-11-20] MEDS ORDERED: COREG PO SCH (22:00)
[2017-11-21] MEDS ORDERED: PLAVIX PO SCH (10:00)
[2017-11-21] MEDS ORDERED: IMDUR PO SCH (10:00)
== END 2017-11-20 16:30 | disposition home or self-care (01) | DRG 291 ==
LOC: ED 10:45 → 3A 12:29
PROVIDERS: ADMIT Internal Medicine; ATTEND Internal Medicine
PROC: 5A1D70Z Performance of Urinary Filtration, Intermittent, Less than 6 Hours Per Day (ICD-10-PCS; principal; 2017-11-19)
DX: I13.2 Hypertensive heart and chronic kidney disease with heart failure and with stage 5 chronic kidney disease, or end stage renal disease (principal); I50.41 Acute combined systolic (congestive) and diastolic (congestive) heart failure; N18.6 End stage renal disease; J96.00 Acute respiratory failure, unspecified whether with hypoxia or hypercapnia; K57.92 Diverticulitis of intestine, part unspecified, without perforation or abscess without bleeding; E46 Unspecified protein-calorie malnutrition; I42.0 Dilated cardiomyopathy; Z68.21 Body mass index [BMI] 21.0-21.9, adult; E87.5 Hyperkalemia; E11.22 Type 2 diabetes mellitus with diabetic chronic kidney disease; Z99.2 Dependence on renal dialysis; Z86.73 Personal history of transient ischemic attack (TIA), and cerebral infarction without residual deficits; I25.10 Atherosclerotic heart disease of native coronary artery without angina pectoris; G89.29 Other chronic pain; Z95.5 Presence of coronary angioplasty implant and graft; I25.5 Ischemic cardiomyopathy; Z95.810 Presence of automatic (implantable) cardiac defibrillator; D63.1 Anemia in chronic kidney disease; E78.5 Hyperlipidemia, unspecified; K21.0 Gastro-esophageal reflux disease with esophagitis; K22.70 Barrett's esophagus without dysplasia; Z91.14 Patient's other noncompliance with medication regimen; Z71.6 Tobacco abuse counseling; F17.200 Nicotine dependence, unspecified, uncomplicated; Z82.49 Family history of ischemic heart disease and other diseases of the circulatory system; E11.51 Type 2 diabetes mellitus with diabetic peripheral angiopathy without gangrene; I25.2 Old myocardial infarction
CPT/HCPCS: 36415; 71045; 80048; 80061; 84484; 85025; 93005; 93010; 94760; 96374; 96375; 99291; J1170; J1815; J2270; J7030

== ENCOUNTER 2017-11-20 23:35 | Emergency (ER) | payer MEDICARE ==
[2017-11-21] MEDS ORDERED: ASPIRIN PO ONE (00:07)
[2017-11-21 00:38] LABS: Basophils % (Auto) 0.5 % (0.0-1.8); Eosinophils # (Auto) 0.1 K/mm3 (0.0-0.4); Eosinophils % (Auto) 2.8 % (0.0-4.3); Hematocrit 26.1 % (30.3-42.9); Hemoglobin 8.6 gm/dl (10.1-14.3); Lymphocytes # (Auto) 0.9 K/mm3 (1.2-5.4); Lymphocytes % (Auto) 31.3 % (13.4-35.0); Mean Corpuscular HGB Conc 33 % (30-34); Mean Corpuscular Hemoglobin 28 pg (28-32); Mean Corpuscular Volume 85 fl (79-97); Monocytes # (Auto) 0.4 K/mm3 (0.0-0.8); Monocytes % (Auto) 12.5 % (0.0-7.3); Platelet Count 229 K/mm3 (140-440); Red Blood Count 3.07 M/mm3 (3.65-5.03)
[2017-11-21 00:50] LABS: Red Cell Distribution Width 20.6 % (13.2-15.2)
[2017-11-21 01:00] LABS: Calcium 9.7 mg/dL (8.4-10.2)
[2017-11-21] MEDS ORDERED: SUBLIMAZE IV ONE (06:22)
[2017-11-21] MEDS ORDERED: ZOFRAN IV ONE (06:43)
[2017-11-21] MEDS ORDERED: BABY ASPIRIN PO ONE (06:44)
--- NOTE | 2017-11-21 06:44 | Emergency Department Report ---
HPI - General Chief Complaint: Chest Pain Time Seen by Provider: 11/21/17 06:19 - HPI HPI: The patient is a 67-year-old female with a history of multiple comorbidities including CAD, CHF, ESRD, diabetes, and whom presents for evaluation of chest pain. The patient reports midsternal pressure-like chest pain since 10 PM last night, about 8 hours prior to my evaluation, constant since onset, currently 8/ 10 in severity. The patient denies fever, neck pain, parasthesias, dyspnea, cough, hemoptysis, palpitations, dizziness, syncope, unilateral leg swelling, calf muscle pain. Patient also denies cocaine or other stimulant use, recent immobilization, or history of recent cancer. ED Past Medical Hx - Past Medical History Previous Medical History?: Yes Hx Hypertension: Yes (1966) Hx CVA: Yes (x 2) Hx Heart Attack/AMI: Yes Hx Congestive Heart Failure: Yes Hx Diabetes: No Hx Deep Vein Thrombosis: No Hx GERD: No Hx Liver Disease: No Hx Renal Disease: Yes (Dialysis MWF) Hx Sickle Cell Disease: No Hx Arthritis: Yes Hx Headaches / Migraines: No Hx Seizures: No Hx Kidney Stones: No Hx Asthma: No Hx COPD: No Hx Tuberculosis: No Hx Dementia: No Hx HIV: No Additional medical history: enlarged heart, gout, LCH CORONARY ANGIOGRAPHY VONORE 08/06/2017-NONOBSTRUCTING HEART PER DR GIDEON EBNOIT - Surgical History Hx Coronary Stent: No Hx Open Heart Surgery: No Hx Pacemaker: No Hx Internal Defibrillator: No Hx Cholecystectomy: No Hx Appendectomy: No Hx Breast Surgery: No Additional Surgical History: tubal ligation, vas cath. LUE fistula. cardiac workup includes a stress test on 12/21/2016 that was unremarkable. Patient status post PCI of RCA with subsequent subacute thrombus of the proximal RCA stent and angioplasty with resolution of thrombosis on November 2016. AICD placement Aug 2017. PCI 03/22/17 of RCA. 05/01/17 neg Lexiscan stress - Social History Smoking Status: Former Smoker Substance Use Type: None - Medications Home Medications: Home Medications Medication Instructions Recorded Confirmed Last Taken Type Carvedilol [Coreg] 12.5 mg PO BID #60 tablet 06/27/17 11/19/17 11/19/17 Rx Clopidogrel [Plavix] 75 mg PO QDAY #30 tablet 06/27/17 11/19/17 11/19/17 Rx Dicyclomine [Bentyl] 10 mg PO TID PRN #30 capsule 09/13/17 11/19/17 11/19/17 Rx Cinacalcet [Sensipar] 60 mg PO QDAY 09/27/17 11/19/17 11/19/17 History Sennosides [Senna Lax] 8.6 mg PO DAILY PRN 09/27/17 11/19/17 11/19/17 History ISOSORBIDE MONOnitrate [Imdur ER] 30 mg PO QDAY 10/14/17 11/19/17 11/19/17 History Dialyvite 800 Plus D Wafer 800 mg PO DAILY 11/05/17 11/19/17 11/19/17 History Pantoprazole Sodium 40 mg PO DAILY 11/05/17 11/19/17 11/19/17 History Atorvastatin Calcium [Lipitor] 40 mg PO DAILY #30 tablet 11/06/17 11/19/1711/19 Rx Pantoprazole [Protonix] 40 mg PO QDAY #30 tablet 11/20/17 Unknown Rx oxyCODONE /ACETAMINOPHEN [Percocet 1 tab PO QHS PRN #5 tablet 11/20/17 Unknown Rx 5/325 mg] ED Review of Systems ROS: Stated complaint: CHEST PAIN Other details as noted in HPI Constitutional: denies: fever ENT: denies: throat or neck pain Respiratory: denies: cough, shortness of breath Cardiovascular: reports chest pain Endocrine: denies unexplained weight loss or gain Gastrointestinal: denies: abdominal pain, nausea Genitourinary: denies: dysuria Musculoskeletal: denies: leg swelling Skin: denies: rash Neurological: denies: headache Hematological/Lymphatic: denies: easy bleeding or easy bruising Psych: denies sadness or hopelessness Physical Exam - Physical Exam Vital Signs: Vital Signs 11/21/17 11/21/17 11/21/17 00:01 03:12 03:15 Temperature 98.1 F Pulse Rate 85 83 Respiratory 18 20 19 Rate Blood Pressure 137/55 O2 Sat by Pulse 97 99 Oximetry 11/21/17 11/21/17 11/21/17 03:31 03:45 04:01 Temperature Pulse Rate 82 80 80 Respiratory 22 22 18 Rate Blood Pressure O2 Sat by Pulse 97 96 100 Oximetry 11/21/17 11/21/17 11/21/17 04:15 04:31 04:40 Temperature Pulse Rate 81 79 Respiratory 22 20 20 Rate Blood Pressure O2 Sat by Pulse 98 96 Oximetry 11/21/17 04:41 Temperature Pulse Rate 78 Respiratory 25 H Rate Blood Pressure O2 Sat by Pulse 98 Oximetry Physical Exam: General: well-nourished, well-developed, no acute distress Head: Normocephalic, atraumatic Eyes: normal sclera ENT: Mucous membranes are pink and moist Neck: trachea midline, neck supple, No neck stiffness, no cervical adenopathy Respiratory: Breath sounds equal bilaterally, no wheezing, rales, or rhonchi Cardio: S1 and S2 present, no murmurs, rubs, gallops, capillary refill is brisk Abdomen: Normoactive bowel sounds, soft abdomen, no rigidity, no guarding or rebound tenderness Chest WALL/Back: No tenderness to palpation of the chest wall, no CVA tenderness with percussion Musc: No pitting edema Skin: No rash Neuro: no facial drooping, normal speech Psych: Normal affect ED Course Vital Signs 11/21/17 11/21/17 11/21/17 00:01 03:12 03:15 Temperature 98.1 F Pulse Rate 85 83 Respiratory 18 20 19 Rate Blood Pressure 137/55 O2 Sat by Pulse 97 99 Oximetry 11/21/17 11/21/17 11/21/17 03:31 03:45 04:01 Temperature Pulse Rate 82 80 80 Respiratory 22 22 18 Rate Blood Pressure O2 Sat by Pulse 97 96 100 Oximetry 11/21/17 11/21/17 11/21/17 04:15 04:31 04:40 Temperature Pulse Rate 81 79 Respiratory 22 20 20 Rate Blood Pressure O2 Sat by Pulse 98 96 Oximetry 11/21/17 04:41 Temperature Pulse Rate 78 Respiratory 25 H Rate Blood Pressure O2 Sat by Pulse 98 Oximetry ED Medical Decision Making - Lab Data Result diagrams: 11/21/17 00:28 11/21/17 00:28 - Medical Decision Making The patient was seen and examined by myself. The patient is placed on a radiation monitor and continuous pulse ox. On initial evaluation, the patient was found to be in no distress. EKG was negative for findings suggestive of acute cardiac infarct. The patient is given an aspirin and Iv pain medicine. Labs and imaging are obtained. Chest x-ray is negative for pneumothorax, focal consolidation, pulmonary vascular congestion, pleural effusion, or other obvious acute cardiopulmonary disease process. Lab results revealed elevated creatinine of 6.7 consistent with long-standing history of kidney failure, and also mildly elevated troponin of 0.165. The patient was reevaluated and reported that their symptoms were improved. As the patient has chest pain and risk factors for development of acute coronary event, the patient will be admitted for close cardiopulmonary monitoring, serial troponins, and evaluation by cardiology. The physician on- call was contacted. They presented to the emergency department and evaluated the patient. They agreed to admit the patient. The ED admit order was placed. The patient was admitted in guarded condition. Critical care attestation.: If time is entered above; I have spent that time in minutes in the direct care of this critically ill patient, excluding procedure time. ED Disposition Clinical Impression: Elevated troponin, Acute chest pain, ESRD (end stage renal disease) on dialysis , Anemia in chronic kidney disease Disposition: OP ADMIT IP TO THIS HOSP Is pt being admited?: Yes Does the pt Need Aspirin: Yes Condition: Stable Instructions: Chest Pain (ED) Referrals: PRIMARY CARE, [Primary Care Provider] - 3-5 Days Time of Disposition: 06:43
[2017-11-21] MEDS ORDERED: BENTYL PO PRN (09:14)
--- NOTE | 2017-11-21 09:29 | XRay Report ---
Portable chest: Chest pain. The heart is enlarged and there is mild vascular congestion. No perivascular edema and no infiltrate noted. An ICD wires located over the chest. No significant change is identified when compared to November 19, 2017. Impression: Stable findings.
[2017-11-21] MEDS ORDERED: [UNRECOGNIZED DRUG - OTHER] PO SCH (10:00)
[2017-11-21] MEDS ORDERED: IMDUR PO SCH (10:00)
[2017-11-21] MEDS ORDERED: COREG PO SCH (10:00)
[2017-11-21] MEDS ORDERED: PROTONIX PO SCH (10:00)
[2017-11-21] MEDS ORDERED: DIALYVITE PO SCH (10:00)
[2017-11-21] MEDS ORDERED: SENSIPAR PO SCH (10:00)
[2017-11-21] MEDS ORDERED: PLAVIX PO SCH (10:00)
[2017-11-21] MEDS ORDERED: SENOKOT PO PRN (10:00)
[2017-11-21 12:07] VITALS: BP 139/48
[2017-11-21] MEDS ORDERED: PERCOCET 5/325 PO PRN (22:00)
== END 2017-11-21 12:06 | disposition home or self-care (01) ==
LOC: ED 23:35
DX: I13.2 Hypertensive heart and chronic kidney disease with heart failure and with stage 5 chronic kidney disease, or end stage renal disease (principal); I50.9 Heart failure, unspecified; N18.6 End stage renal disease; D63.1 Anemia in chronic kidney disease; Z99.2 Dependence on renal dialysis; M19.90 Unspecified osteoarthritis, unspecified site; Z98.51 Tubal ligation status; Z87.891 Personal history of nicotine dependence
CPT/HCPCS: 36415; 71045; 80048; 84484; 85025; 93005; 93010; 96374; 96375; 99284; A9270; J2405; J3010

== ENCOUNTER 2017-12-04 18:32 | Emergency (ER) | payer MEDICARE ==
[2017-12-04] MEDS ORDERED: ASPIRIN PO ONE (18:58)
[2017-12-04 19:44] LABS: Basophils % (Auto) 0.7 % (0.0-1.8); Eosinophils % (Auto) 0.9 % (0.0-4.3); Hematocrit 24.6 % (30.3-42.9); Hemoglobin 7.9 gm/dl (10.1-14.3); Lymphocytes # (Auto) 0.9 K/mm3 (1.2-5.4); Lymphocytes % (Auto) 18.8 % (13.4-35.0); Mean Corpuscular HGB Conc 32 % (30-34); Mean Corpuscular Hemoglobin 28 pg (28-32); Mean Corpuscular Volume 88 fl (79-97); Monocytes # (Auto) 0.5 K/mm3 (0.0-0.8); Monocytes % (Auto) 11.2 % (0.0-7.3); Platelet Count 269 K/mm3 (140-440); Red Blood Count 2.81 M/mm3 (3.65-5.03)
[2017-12-04 19:47] LABS: Red Cell Distribution Width 22.7 % (13.2-15.2)
[2017-12-04 20:16] LABS: Chol/HDL Ratio 2.78 %
[2017-12-04] MEDS ORDERED: MORPHINE IV ONE (21:08)
[2017-12-04] MEDS ORDERED: ZOFRAN IV ONE (21:08)
--- NOTE | 2017-12-04 21:18 | Emergency Department Report ---
ED Chest Pain HPI - General Chief Complaint: Chest Pain Stated Complaint: CHEST PAIN Time Seen by Provider: 12/04/17 21:03 Source: patient Mode of arrival: Ambulatory Limitations: Physical Limitation - History of Present Illness Initial Comments: Ms. Molina is a 67 years old female very familiar to me and to the hospital due to frequent admission to the ER and the hospital. Patient has history of coronary artery disease status post stents, end-stage renal disease on hemodialysis, diabetes and hypertension. Patient presented with left-sided chest pain for the last 3 days, patient stated that her pain is similar to what she use to come here for, no difference according to her. Patient immediately asked if she can get pain medicine. She denied any shortness of breath cough or congestion. Patient stated that she is compliant with her dialysis and she supposed to be dialyzed tomorrow. No fever, nausea or vomiting. MD Complaint: chest pain -: days(s) Onset: during rest Pain Location: left chest Severity: moderate Severity scale (0 -10): 5 Quality: sharp Consistency: constant Improves With: nothing Worsens With: nothing - Related Data Home Medications Medication Instructions Recorded Confirmed Last Taken Sennosides [Senna Lax] 8.6 mg PO DAILY PRN 09/27/17 12/05/17 11/19/17 ISOSORBIDE MONOnitrate [Imdur ER] 30 mg PO QDAY 10/14/17 12/05/17 11/19/17 Dialyvite 800 Plus D Wafer 800 mg PO DAILY 11/05/17 12/05/17 11/19/17 Previous Rx's Medication Instructions Recorded Last Taken Type Carvedilol [Coreg] 12.5 mg PO BID #60 tablet 06/27/17 11/19/17 Rx Clopidogrel [Plavix] 75 mg PO QDAY #30 tablet 06/27/17 11/19/17 Rx Dicyclomine [Bentyl] 10 mg PO TID PRN #30 capsule 09/13/17 11/19/17 Rx Atorvastatin Calcium [Lipitor] 40 mg PO DAILY #30 tablet 11/06/17 11/19/17 Rx Pantoprazole [Protonix TAB] 40 mg PO QDAY #30 tablet 11/20/17 Unknown Rx oxyCODONE /ACETAMINOPHEN [Percocet 1 tab PO QHS PRN #5 tablet 11/20/17 Unknown Rx 5/325 mg] Levofloxacin [Levaquin TAB] 250 mg PO Q48HR #2 tablet 11/26/17 Unknown Rx Allergies Allergy/AdvReac Type Severity Reaction Status Date / Time No Known Allergies Allergy Verified 10/21/17 05:14 Heart Score - HEART Score History: Moderately suspicious EKG: Non-specific Age: > 65 Risk factors: > 3 risk factors or hx of atherosclerotic disease Troponin: < normal limit HEART Score: 6 - Critical Actions Critical Actions: 4-6 pts:12-16.6% risk of adverse cardiac event. Should be admitted ED Review of Systems ROS: Stated complaint: CHEST PAIN Other details as noted in HPI Comment: All other systems reviewed and negative Constitutional: denies: chills, fever Respiratory: denies: cough, orthopnea, shortness of breath, SOB with exertion, SOB at rest Cardiovascular: chest pain. denies: palpitations, dyspnea on exertion Gastrointestinal: denies: abdominal pain, nausea, vomiting, diarrhea, constipation, hematemesis Neurological: denies: headache, weakness, numbness, paresthesias ED Past Medical Hx - Past Medical History Previous Medical History?: Yes Hx Hypertension: Yes (1966) Hx CVA: Yes (x 2) Hx Heart Attack/AMI: Yes Hx Congestive Heart Failure: Yes Hx Diabetes: No Hx Deep Vein Thrombosis: No Hx GERD: No Hx Liver Disease: No Hx Renal Disease: Yes (Dialysis MWF) Hx Sickle Cell Disease: No Hx Arthritis: Yes Hx Headaches / Migraines: No Hx Seizures: No Hx Kidney Stones: No Hx Asthma: No Hx COPD: No Hx Tuberculosis: No Hx Dementia: No Hx HIV: No Additional medical history: enlarged heart, gout, [facility] CORONARY ANGIOGRAPHY [place] 08/06/2017-NONOBSTRUCTING HEART PER DR GIDEON BENOIT - Surgical History Past Surgical History?: Yes Hx Coronary Stent: No Hx Open Heart Surgery: No Hx Pacemaker: No Hx Internal Defibrillator: No Hx Cholecystectomy: No Hx Appendectomy: No Hx Breast Surgery: No Additional Surgical History: tubal ligation, vas cath. LUE fistula. cardiac workup includes a stress test on 12/21/2016 that was unremarkable. Patient status post PCI of RCA with subsequent subacute thrombus of the proximal RCA stent and angioplasty with resolution of thrombosis on November 2016. AICD placement Aug 2017. PCI 03/22/17 of RCA. 05/01/17 neg Lexiscan stress - Social History Smoking Status: Former Smoker Substance Use Type: Prescribed - Medications Home Medications: Home Medications Medication Instructions Recorded Confirmed Last Taken Type Carvedilol [Coreg] 12.5 mg PO BID #60 tablet 06/27/17 12/05/17 11/19/17 Rx Clopidogrel [Plavix] 75 mg PO QDAY #30 tablet 06/27/17 12/05/17 11/19/17 Rx Dicyclomine [Bentyl] 10 mg PO TID PRN #30 capsule 09/13/17 12/05/17 11/19/17 Rx Sennosides [Senna Lax] 8.6 mg PO DAILY PRN 09/27/17 12/05/17 11/19/17 History ISOSORBIDE MONOnitrate [Imdur ER] 30 mg PO QDAY 10/14/17 12/05/17 11/19/17 History Dialyvite 800 Plus D Wafer 800 mg PO DAILY 11/05/17 12/05/17 11/19/17 History Atorvastatin Calcium [Lipitor] 40 mg PO DAILY #30 tablet 11/06/17 12/05/1711/19 Rx Pantoprazole [Protonix TAB] 40 mg PO QDAY #30 tablet 11/20/17 12/05/17 Unknown Rx oxyCODONE /ACETAMINOPHEN [Percocet 1 tab PO QHS PRN #5 tablet 11/20/17 12/05/17 Unknown Rx 5/325 mg] Levofloxacin [Levaquin TAB] 250 mg PO Q48HR #2 tablet 11/26/17 12/05/17 Unknown Rx ED Physical Exam - General Limitations: Physical Limitation General appearance: alert, in no apparent distress - Head Head exam: Present: atraumatic, normocephalic, normal inspection - Eye Eye exam: Present: normal appearance, PERRL - ENT ENT exam: Present: normal exam, normal orophraynx, mucous membranes moist - Neck Neck exam: Present: normal inspection, full ROM. Absent: tenderness, meningismus - Respiratory Respiratory exam: Present: normal lung sounds bilaterally, chest wall tenderness. Absent: respiratory distress, wheezes, rales, rhonchi, stridor, accessory muscle use, decreased breath sounds, prolonged expiratory - Cardiovascular Cardiovascular Exam: Present: regular rate, normal rhythm, normal heart sounds - GI/Abdominal GI/Abdominal exam: Present: soft, normal bowel sounds. Absent: distended, tenderness, guarding, rebound, rigid, organomegaly, mass, bruit, pulsatile mass - Extremities Exam Extremities exam: Present: normal inspection, full ROM, normal capillary refill - Back Exam Back exam: Present: normal inspection, full ROM. Absent: tenderness, CVA tenderness (R), CVA tenderness (L), muscle spasm, paraspinal tenderness, vertebral tenderness - Neurological Exam Neurological exam: Present: alert, oriented X3, CN II-XII intact, normal gait - Skin Skin exam: Present: warm, intact, normal color. Absent: cyanosis, diaphoretic ED Course Vital Signs 12/04/17 12/04/17 18:55 20:42 Temperature 99.3 F Pulse Rate 77 85 Respiratory 22 18 Rate Blood Pressure 142/51 Blood Pressure 148/56 [Left] O2 Sat by Pulse 100 98 Oximetry JACQUES score - Jacques Score Age > 65: (1) Yes Aspirin use within the Past 7 Days: (1) Yes 3 or more CAD Risk Factors: (1) Yes 2 or more Angina events in past 24 hrs: (0) No Known CAD with more than 50% Stenosis: (1) Yes Elevated Cardiac Markers: (1) Yes ST Deviation Greater than 0.5mm: (0) No JACQUES Score: 5 ED Medical Decision Making - Lab Data Result diagrams: 12/04/17 19:31 12/04/17 19:31 - EKG Data -: EKG Interpreted by Me EKG shows normal: sinus rhythm Rate: normal - EKG Data Interpretation: no acute changes, unchanged when compared t, nonspecific ST-T wave annamarie - Medical Decision Making I discussed the patient is Dr. Rooney, he stated that he will see the patient in the ER. Critical care attestation.: If time is entered above; I have spent that time in minutes in the direct care of this critically ill patient, excluding procedure time. ED Disposition Clinical Impression: Chest pain Disposition: -09 OP ADMIT IP TO THIS HOSP Is pt being admited?: Yes Condition: Stable Instructions: Chest Pain (ED) Referrals: PRIMARY CARE, [Primary Care Provider] - VENTURA ALONZO MD [Staff Physician] - PAM
--- NOTE | 2017-12-04 22:47 | XRay Report ---
FINAL REPORT EXAM: XR CHEST 1V AP HISTORY: chest pain TECHNIQUE: Frontal chest x-ray performed portably and upright Comparison: 09/30/2017 FINDINGS: Cardiac silhouette is enlarged. There is an AICD projecting from the infra diaphragmatic approach. There is mild pulmonary vascular congestion without overt failure. The bones are osteopenic. IMPRESSION: Stable marked enlargement of the cardiac silhouette and AICD. Mild pulmonary vascular prominence without overt failure.
--- NOTE | 2017-12-05 03:40 | Event Note ---
Date: 12/05/17 Patient comes in for chest pain.Which is dull in character.Patient had w/u recently and was treated as NSTEMI one week ago.Was on Heparin.Her Troponin was around 4.2 Troponinthis visit is 0.611 and trending down Patient has recurrent chest pain and elevated Troponin chronically. Recommendation was to treat medically. F/u with Cardiology this AM or tomorrow. Discharge diagnosis Angina Medical management Ismo + ASA+Plavix Patient already on all these meds. Pateint to exercise regulaarly-which she is non compliant Also strictly no smoking.
[2017-12-05 05:40] VITALS: BP 158/89
== END 2017-12-05 05:20 | disposition admitted as inpatient to this hospital (09) ==
LOC: ED 18:32
DX: R07.89 Other chest pain (principal); I13.2 Hypertensive heart and chronic kidney disease with heart failure and with stage 5 chronic kidney disease, or end stage renal disease; E11.22 Type 2 diabetes mellitus with diabetic chronic kidney disease; N18.6 End stage renal disease; Z99.2 Dependence on renal dialysis; M19.90 Unspecified osteoarthritis, unspecified site; Z87.891 Personal history of nicotine dependence; Z98.51 Tubal ligation status
CPT/HCPCS: 36415; 71045; 80048; 80061; 84484; 85025; 93005; 93010; 96374; 96375; 99284; J2270; J2405

== ENCOUNTER 2017-12-06 12:06 | Emergency (ER) | payer MEDICARE ==
[2017-12-06 13:43] LABS: Calcium 9.9 mg/dL (8.4-10.2)
[2017-12-06 13:48] LABS: Basophils % (Auto) 0.4 % (0.0-1.8); Eosinophils % (Auto) 0.7 % (0.0-4.3); Hematocrit 22.9 % (30.3-42.9); Hemoglobin 7.6 gm/dl (10.1-14.3); Lymphocytes % (Auto) 20.8 % (13.4-35.0); Mean Corpuscular HGB Conc 33 % (30-34); Mean Corpuscular Hemoglobin 28 pg (28-32); Mean Corpuscular Volume 85 fl (79-97); Monocytes # (Auto) 0.6 K/mm3 (0.0-0.8); Monocytes % (Auto) 13.6 % (0.0-7.3); Platelet Count 247 K/mm3 (140-440)
[2017-12-06 13:53] LABS: Red Cell Distribution Width 22.8 % (13.2-15.2)
[2017-12-06] MEDS ORDERED: NORCO 7.5/325 PO ONE (21:11)
--- NOTE | 2017-12-06 22:33 | XRay Report ---
FINAL REPORT PROCEDURE: Portable upright chest x-ray TECHNIQUE: Chest radiograph portable AP view. CPT 80494 HISTORY: chest pain COMPARISON: Prior chest x-ray 12/04/2017 FINDINGS: Cardiomegaly is unchanged. Upper lobe vasculature minimally distended although sharply defined. No pulmonary edema is seen. No infiltrates masses effusions or pneumothorax are visualized. Electronic stimulating device implanted in the left upper quadrant laterally and projecting over the anterior chest wall again seen.. No acute bony abnormalities are identified. IMPRESSION: Cardiomegaly with mild pulmonary venous hypertension changes. No acute abnormalities are identified..
[2017-12-06 22:43] VITALS: BP 155/59
--- NOTE | 2017-12-06 22:51 | Emergency Department Report ---
ED Chest Pain HPI - General Chief Complaint: Abdominal Pain Stated Complaint: abd PN Time Seen by Provider: 12/06/17 21:02 Source: patient Mode of arrival: Ambulatory Limitations: No Limitations - History of Present Illness Initial Comments: Patient is a 67-year-old [place] female past medical history of end-stage renal disease who goes to dialysis on Sunday who is presenting with chest pain. Patient has a history of chronic chest pain has been present for the last 4 years since she's been on dialysis. Patient states that she was seen at [facility] in July 2017 and had a left heart coronary angiogram this showed nonobstructive heart disease. Patient states chest pain is central as a grabbing pain. Patient denies any shortness of breath cough at this time. Patient states that the chest pain is not exertional. Patient was last admitted earlier this month for chest pain and cardiology signed off. The patient has a history of chronically elevated troponins. Severity scale (0 -10): 5 Quality: tightness, aching Consistency: constant Improves With: nothing Worsens With: palpation, movement - Related Data Home Medications Medication Instructions Recorded Confirmed Last Taken Sennosides [Senna Lax] 8.6 mg PO DAILY PRN 09/27/17 12/05/17 11/19/17 ISOSORBIDE MONOnitrate [Imdur ER] 30 mg PO QDAY 10/14/17 12/05/17 11/19/17 Dialyvite 800 Plus D Wafer 800 mg PO DAILY 11/05/17 12/05/17 11/19/17 Previous Rx's Medication Instructions Recorded Last Taken Type Carvedilol [Coreg] 12.5 mg PO BID #60 tablet 06/27/17 11/19/17 Rx Clopidogrel [Plavix] 75 mg PO QDAY #30 tablet 06/27/17 11/19/17 Rx Dicyclomine [Bentyl] 10 mg PO TID PRN #30 capsule 09/13/17 11/19/17 Rx Atorvastatin Calcium [Lipitor] 40 mg PO DAILY #30 tablet 11/06/17 11/19/17 Rx Pantoprazole [Protonix TAB] 40 mg PO QDAY #30 tablet 11/20/17 Unknown Rx oxyCODONE /ACETAMINOPHEN [Percocet 1 tab PO QHS PRN #5 tablet 11/20/17 Unknown Rx 5/325 mg] Levofloxacin [Levaquin TAB] 250 mg PO Q48HR #2 tablet 11/26/17 Unknown Rx traMADol [Ultram] 50 mg PO Q6HR PRN #10 tablet 12/06/17 Unknown Rx Allergies Allergy/AdvReac Type Severity Reaction Status Date / Time No Known Allergies Allergy Verified 10/21/17 05:14 Heart Score - HEART Score History: Slightly suspicious EKG: Non-specific Age: > 65 Risk factors: 1-2 risk factors Troponin: > 3x normal limit HEART Score: 6 ED Review of Systems ROS: Stated complaint: abd PN Other details as noted in HPI Comment: All other systems reviewed and negative ED Past Medical Hx - Past Medical History Previous Medical History?: Yes Hx Hypertension: Yes (1966) Hx CVA: Yes (x 2) Hx Heart Attack/AMI: Yes Hx Congestive Heart Failure: Yes Hx Diabetes: No Hx Deep Vein Thrombosis: No Hx GERD: No Hx Liver Disease: No Hx Renal Disease: Yes (Dialysis MWF) Hx Sickle Cell Disease: No Hx Arthritis: Yes Hx Headaches / Migraines: No Hx Seizures: No Hx Kidney Stones: No Hx Asthma: No Hx COPD: No Hx Tuberculosis: No Hx Dementia: No Hx HIV: No Additional medical history: enlarged heart, gout, [facility] CORONARY ANGIOGRAPHY [place] 08/06/2017-NONOBSTRUCTING HEART PER DR GIDEON BENOIT, dialysis - Surgical History Hx Coronary Stent: No Hx Open Heart Surgery: No Hx Pacemaker: No Hx Internal Defibrillator: No Hx Cholecystectomy: No Hx Appendectomy: No Hx Breast Surgery: No Additional Surgical History: tubal ligation, vas cath. LUE fistula. cardiac workup includes a stress test on 12/21/2016 that was unremarkable. Patient status post PCI of RCA with subsequent subacute thrombus of the proximal RCA stent and angioplasty with resolution of thrombosis on November 2016. AICD placement Aug 2017. PCI 03/22/17 of RCA. 05/01/17 neg Lexiscan stress - Social History Smoking Status: Former Smoker Substance Use Type: None - Medications Home Medications: Home Medications Medication Instructions Recorded Confirmed Last Taken Type Carvedilol [Coreg] 12.5 mg PO BID #60 tablet 06/27/17 12/05/17 11/19/17 Rx Clopidogrel [Plavix] 75 mg PO QDAY #30 tablet 06/27/17 12/05/17 11/19/17 Rx Dicyclomine [Bentyl] 10 mg PO TID PRN #30 capsule 09/13/17 12/05/17 11/19/17 Rx Sennosides [Senna Lax] 8.6 mg PO DAILY PRN 09/27/17 12/05/17 11/19/17 History ISOSORBIDE MONOnitrate [Imdur ER] 30 mg PO QDAY 10/14/17 12/05/17 11/19/17 History Dialyvite 800 Plus D Wafer 800 mg PO DAILY 11/05/17 12/05/17 11/19/17 History Atorvastatin Calcium [Lipitor] 40 mg PO DAILY #30 tablet 11/06/17 12/05/1711/19 Rx Pantoprazole [Protonix TAB] 40 mg PO QDAY #30 tablet 11/20/17 12/05/17 Unknown Rx oxyCODONE /ACETAMINOPHEN [Percocet 1 tab PO QHS PRN #5 tablet 11/20/17 12/05/17 Unknown Rx 5/325 mg] Levofloxacin [Levaquin TAB] 250 mg PO Q48HR #2 tablet 11/26/17 12/05/17 Unknown Rx traMADol [Ultram] 50 mg PO Q6HR PRN #10 tablet 12/06/17 Unknown Rx ED Physical Exam - General Limitations: No Limitations General appearance: alert, in no apparent distress - Head Head exam: Present: atraumatic, normocephalic - Eye Eye exam: Present: normal appearance - ENT ENT exam: Present: mucous membranes moist - Neck Neck exam: Present: normal inspection - Respiratory Respiratory exam: Present: normal lung sounds bilaterally. Absent: respiratory distress, wheezes, rales, rhonchi - Cardiovascular Cardiovascular Exam: Present: regular rate, normal rhythm. Absent: systolic murmur, diastolic murmur, rubs, gallop - GI/Abdominal GI/Abdominal exam: Present: soft, normal bowel sounds. Absent: distended, tenderness, guarding - Extremities Exam Extremities exam: Present: normal inspection - Back Exam Back exam: Present: normal inspection - Neurological Exam Neurological exam: Present: alert, oriented X3 - Psychiatric Psychiatric exam: Present: normal affect, normal mood - Skin Skin exam: Present: warm, dry, intact, normal color. Absent: rash ED Course Vital Signs 12/06/17 12/06/17 12/06/17 12:41 17:48 21:30 Temperature 98.4 F Pulse Rate 83 84 78 Respiratory 16 16 13 Rate Blood Pressure 151/65 148/62 Blood Pressure 153/57 [Right] O2 Sat by Pulse 98 100 Oximetry 12/06/17 12/06/17 12/06/17 21:31 22:00 22:30 Temperature 98.4 F Pulse Rate 79 77 76 Respiratory 12 19 19 Rate Blood Pressure 149/63 155/59 Blood Pressure 155/52 [Right] O2 Sat by Pulse 100 100 Oximetry MONE score - Mone Score Age > 65: (1) Yes Aspirin use within the Past 7 Days: (1) Yes 3 or more CAD Risk Factors: (1) Yes 2 or more Angina events in past 24 hrs: (0) No Known CAD with more than 50% Stenosis: (1) Yes Elevated Cardiac Markers: (1) Yes ST Deviation Greater than 0.5mm: (0) No MONE Score: 5 ED Medical Decision Making - Lab Data Result diagrams: 12/06/17 13:23 12/06/17 21:15 Lab Results 12/06/17 12/06/17 12/06/17 Range/Units 13:23 13:23 21:15 WBC 4.6 (4.5-11.0) K/mm3 RBC 2.70 L (3.65-5.03) M/mm3 Hgb 7.6 L (10.1-14.3) gm/dl Hct 22.9 L (30.3-42.9) % MCV 85 (79-97) fl MCH 28 (28-32) pg MCHC 33 (30-34) % RDW 22.8 H (13.2-15.2) % Plt Count 247 (140-440) K/mm3 Lymph % (Auto) 20.8 (13.4-35.0) % [place] % (Auto) 13.6 H (0.0-7.3) % Eos % (Auto) 0.7 (0.0-4.3) % Baso % (Auto) 0.4 (0.0-1.8) % Lymph # 1.0 L (1.2-5.4) K/mm3 [place] # 0.6 (0.0-0.8) K/mm3 Eos # 0.0 (0.0-0.4) K/mm3 Baso # 0.0 (0.0-0.1) K/mm3 Seg Neutrophils % 64.5 (40.0-70.0) % Seg Neutrophils # 3.0 (1.8-7.7) K/mm3 Sodium 136 L (137-145) mmol/L Potassium 5.7 H (3.6-5.0) mmol/L Chloride 91.5 L (98-107) mmol/L Carbon Dioxide 26 (22-30) mmol/L Anion Gap 24 mmol/L BUN 79 H (7-17) mg/dL Creatinine 13.1 H (0.7-1.2) mg/dL Estimated GFR 3 ml/min BUN/Creatinine Ratio 6 % Glucose 82 (65-100) mg/dL Calcium 9.9 (8.4-10.2) mg/dL Troponin T 0.443 H* D (0.00-0.029) ng/mL Amylase 51 (27-131) units/L Lipase 21 (13-60) units/L 03/22/18 Range/Units 21:15 WBC (4.5-11.0) K/mm3 RBC (3.65-5.03) M/mm3 Hgb (10.1-14.3) gm/dl Hct (30.3-42.9) % MCV (79-97) fl MCH (28-32) pg MCHC (30-34) % RDW (13.2-15.2) % Plt Count (140-440) K/mm3 Lymph % (Auto) (13.4-35.0) % [place] % (Auto) (0.0-7.3) % Eos % (Auto) (0.0-4.3) % Baso % (Auto) (0.0-1.8) % Lymph # (1.2-5.4) K/mm3 [place] # (0.0-0.8) K/mm3 Eos # (0.0-0.4) K/mm3 Baso # (0.0-0.1) K/mm3 Seg Neutrophils % (40.0-70.0) % Seg Neutrophils # (1.8-7.7) K/mm3 Sodium (137-145) mmol/L Potassium 5.2 H (3.6-5.0) mmol/L Chloride (98-107) mmol/L Carbon Dioxide (22-30) mmol/L Anion Gap mmol/L BUN (7-17) mg/dL Creatinine (0.7-1.2) mg/dL Estimated GFR ml/min BUN/Creatinine Ratio % Glucose (65-100) mg/dL Calcium (8.4-10.2) mg/dL Troponin T (0.00-0.029) ng/mL Amylase (27-131) units/L Lipase (13-60) units/L - EKG Data -: EKG Interpreted by Me - EKG Data Interpretation: other (EKG shows sinus rhythm at a rate of 79 there is LVH present occasional PVC axes normal intervals and normal as T wave inversions in the inferior lateral leads. This was compared with EKG from 11/23/2017 is been no interval change. Time interpretation -) - Radiology Data Radiology results: report reviewed Cardiomegaly with mild pulmonary vascular congestion - Medical Decision Making Patient is a 67-year-old black female with end-stage renal disease who is presenting with chest pain. Patient has had chronic chest pain with multiple ER and admission visits in the last several years. Her last admission was earlier this month. Cardiology saw this patient at that time and deemed that her chronically elevated troponin is most likely secondary to her renal disease. Patient had coronary artery angiography in mid 2017 which showed no acute disease. Cardiology's note states there is no further plans for any ischemic evaluation at this point. Patient's troponin today is in line with the troponins that she left the hospital with the 4 range. I also spoke with the patient's audio visual arts director Dr. Kurtz who stated that she is well known to the department and that if her troponins were midline with her previous that she can be discharged and follow with them tomorrow. Patient had initially an elevated potassium level of 5.7 which was repeated and was 5.1 which is barely elevated especially with a history of end-stage renal who is getting dialyzed in less than 12 hours. Patient will be discharged home at this time. I did suggest the patient try seeking a pain clinic as an outpatient. Critical care attestation.: If time is entered above; I have spent that time in minutes in the direct care of this critically ill patient, excluding procedure time. ED Disposition Clinical Impression: Chronic chest pain Disposition: -01 TO HOME OR SELFCARE Is pt being admited?: No Does the pt Need Aspirin: No Condition: Stable Instructions: Abdominal Pain (ED), Chest Pain (ED) Prescriptions: traMADol [Ultram] 50 mg PO Q6HR PRN #10 tablet PRN Reason: Pain Referrals: PRIMARY CARE,MD [Primary Care Provider] - 3-5 Days
== END 2017-12-06 23:34 | disposition home or self-care (01) ==
LOC: ED 12:06
DX: R07.9 Chest pain, unspecified (principal); G89.29 Other chronic pain; I10 Essential (primary) hypertension
CPT/HCPCS: 36415; 71045; 80048; 82150; 83690; 84132; 84484; 85025; 93005; 93010

== ENCOUNTER 2017-12-11 15:35 | Emergency (ER) | payer MEDICARE ==
[2017-12-11 15:48] VITALS: BP 157/58
[2017-12-11] MEDS ORDERED: ULTRAM PO ONE (17:21)
[2017-12-11] MEDS ORDERED: ZOFRAN ODT PO ONE (17:21)
--- NOTE | 2017-12-11 17:28 | Emergency Department Report ---
ED General Adult HPI - General Chief complaint: Chest Pain Stated complaint: COUGH Time Seen by Provider: 12/11/17 17:05 Source: patient Mode of arrival: Wheelchair Limitations: No Limitations - History of Present Illness Initial comments: CC: "My chest and stomach is sore." HPI: Ms. Molina is a 67 yo female with hx of CAD and ESRD on HD. She presents with chest and abdominal soreness. She felt a sudden onset of pain while lying on the cough. She received a full 3.5 hour of hemodialysis today. Pain is central. Non descript. Patient is unable to give much detail about the pain. She asks, "Can you just keep me for a day? My son is getting on my nerves. He does not have anywhere else to stay." -: Gradual, minutes(s) (several) Location: chest, abdomen Quality: other (unable to describe) Consistency: intermittent, colicky Worsens with: none Associated Symptoms: denies: confusion, cough, diaphoresis, fever/chills, headaches, loss of appetite, malaise, nausea/vomiting, shortness of breath, syncope, weakness - Related Data Home Medications Medication Instructions Recorded Confirmed Last Taken Sennosides [Senna Lax] 8.6 mg PO DAILY PRN 09/27/17 12/05/17 11/19/17 ISOSORBIDE MONOnitrate [Imdur ER] 30 mg PO QDAY 10/14/17 12/05/17 11/19/17 Dialyvite 800 Plus D Wafer 800 mg PO DAILY 11/05/17 12/05/17 11/19/17 Previous Rx's Medication Instructions Recorded Last Taken Type Carvedilol [Coreg] 12.5 mg PO BID #60 tablet 06/27/17 11/19/17 Rx Clopidogrel [Plavix] 75 mg PO QDAY #30 tablet 06/27/17 11/19/17 Rx Dicyclomine [Bentyl] 10 mg PO TID PRN #30 capsule 09/13/17 11/19/17 Rx Atorvastatin Calcium [Lipitor] 40 mg PO DAILY #30 tablet 11/06/17 11/19/17 Rx Pantoprazole [Protonix TAB] 40 mg PO QDAY #30 tablet 11/20/17 Unknown Rx oxyCODONE /ACETAMINOPHEN [Percocet 1 tab PO QHS PRN #5 tablet 11/20/17 Unknown Rx 5/325 mg] Levofloxacin [Levaquin TAB] 250 mg PO Q48HR #2 tablet 11/26/17 Unknown Rx traMADol [Ultram] 50 mg PO Q6HR PRN #10 tablet 12/06/17 Unknown Rx Allergies Allergy/AdvReac Type Severity Reaction Status Date / Time No Known Allergies Allergy Verified 10/21/17 05:14 ED Review of Systems ROS: Stated complaint: COUGH Other details as noted in HPI Comment: All other systems reviewed and negative Constitutional: denies: chills, fever Eyes: denies: eye pain, eye discharge, vision change ENT: denies: ear pain, throat pain Respiratory: denies: cough, shortness of breath, wheezing Cardiovascular: denies: chest pain, palpitations Endocrine: no symptoms reported Gastrointestinal: denies: abdominal pain, nausea, diarrhea Genitourinary: denies: urgency, dysuria Neurological: denies: headache, weakness ED Past Medical Hx - Past Medical History Hx Hypertension: Yes (1966) Hx CVA: Yes (x 2) Hx Heart Attack/AMI: Yes Hx Congestive Heart Failure: Yes Hx Diabetes: No Hx Deep Vein Thrombosis: No Hx GERD: No Hx Liver Disease: No Hx Renal Disease: Yes (Dialysis MWF) Hx Sickle Cell Disease: No Hx Arthritis: Yes Hx Headaches / Migraines: No Hx Seizures: No Hx Kidney Stones: No Hx Asthma: No Hx COPD: No Hx Tuberculosis: No Hx Dementia: No Hx HIV: No Additional medical history: enlarged heart, gout, LCH CORONARY ANGIOGRAPHY S[place] 08/06/2017-NONOBSTRUCTING HEART PER DR GIDEON BENOIT, dialysis - Surgical History Hx Coronary Stent: No Hx Open Heart Surgery: No Hx Pacemaker: No Hx Internal Defibrillator: No Hx Cholecystectomy: No Hx Appendectomy: No Hx Breast Surgery: No Additional Surgical History: tubal ligation, vas cath. LUE fistula. cardiac workup includes a stress test on 12/21/2016 that was unremarkable. Patient status post PCI of RCA with subsequent subacute thrombus of the proximal RCA stent and angioplasty with resolution of thrombosis on November 2016. AICD placement Aug 2017. PCI 03/22/17 of RCA. 05/01/17 neg Lexiscan stress - Social History Smoking Status: Current Every Day Smoker Substance Use Type: None - Medications Home Medications: Home Medications Medication Instructions Recorded Confirmed Last Taken Type Carvedilol [Coreg] 12.5 mg PO BID #60 tablet 06/27/17 12/05/17 11/19/17 Rx Clopidogrel [Plavix] 75 mg PO QDAY #30 tablet 06/27/17 12/05/17 11/19/17 Rx Dicyclomine [Bentyl] 10 mg PO TID PRN #30 capsule 09/13/17 12/05/17 11/19/17 Rx Sennosides [Senna Lax] 8.6 mg PO DAILY PRN 09/27/17 12/05/17 11/19/17 History ISOSORBIDE MONOnitrate [Imdur ER] 30 mg PO QDAY 10/14/17 12/05/17 11/19/17 History Dialyvite 800 Plus D Wafer 800 mg PO DAILY 11/05/17 12/05/17 11/19/17 History Atorvastatin Calcium [Lipitor] 40 mg PO DAILY #30 tablet 11/06/17 12/05/1711/19 Rx Pantoprazole [Protonix TAB] 40 mg PO QDAY #30 tablet 11/20/17 12/05/17 Unknown Rx oxyCODONE /ACETAMINOPHEN [Percocet 1 tab PO QHS PRN #5 tablet 11/20/17 12/05/17 Unknown Rx 5/325 mg] Levofloxacin [Levaquin TAB] 250 mg PO Q48HR #2 tablet 11/26/17 12/05/17 Unknown Rx traMADol [Ultram] 50 mg PO Q6HR PRN #10 tablet 12/06/17 Unknown Rx ED Physical Exam - General Limitations: No Limitations General appearance: alert, in no apparent distress - Head Head exam: Present: atraumatic, normocephalic - Eye Eye exam: Present: normal appearance - ENT ENT exam: Present: mucous membranes moist - Neck Neck exam: Present: normal inspection - Respiratory Respiratory exam: Present: normal lung sounds bilaterally. Absent: respiratory distress, wheezes, rales, rhonchi - Cardiovascular Cardiovascular Exam: Present: regular rate, normal rhythm. Absent: systolic murmur, diastolic murmur, rubs, gallop - GI/Abdominal GI/Abdominal exam: Present: soft, normal bowel sounds. Absent: distended, tenderness, guarding, rebound - Extremities Exam Extremities exam: Present: normal inspection - Back Exam Back exam: Present: normal inspection - Neurological Exam Neurological exam: Present: alert, oriented X3 - Psychiatric Psychiatric exam: Present: normal affect, normal mood - Skin Skin exam: Present: warm, dry, intact, normal color. Absent: rash ED Course Vital Signs 12/11/17 15:45 Temperature 99.2 F Pulse Rate 86 Respiratory 17 Rate Blood Pressure 157/58 O2 Sat by Pulse 98 Oximetry ED Medical Decision Making - EKG Data -: EKG Interpreted by Me - EKG Data When compared to previous EKG there are: no significant change 12/11/17 17:27 EKG obtained at 1555 Normal sinus rhythm rate of 85, normal axis prolonged QT interval positive LVH no change from prior EKGs. Several EKGs from November were obtained and available. - Medical Decision Making Ms. Molina presents with chest pain and abdominal pain. Nondescript symptoms. She did have dialysis today. No indication of ACS or peritonitis. Dc'd home Critical care attestation.: If time is entered above; I have spent that time in minutes in the direct care of this critically ill patient, excluding procedure time. ED Disposition Clinical Impression: Recurrent chest pain, Abdominal pain Disposition: DC-01 TO HOME OR SELFCARE Is pt being admited?: No Does the pt Need Aspirin: No Condition: Stable Instructions: Chronic Pain (ED) Referrals: PRIMARY CARE, [Primary Care Provider] - 3-5 Days Time of Disposition: 17:29
== END 2017-12-11 17:50 | disposition home or self-care (01) ==
LOC: ED 15:35
DX: R07.89 Other chest pain (principal); R10.9 Unspecified abdominal pain; I13.2 Hypertensive heart and chronic kidney disease with heart failure and with stage 5 chronic kidney disease, or end stage renal disease; N18.6 End stage renal disease; I50.9 Heart failure, unspecified; I25.10 Atherosclerotic heart disease of native coronary artery without angina pectoris; M19.90 Unspecified osteoarthritis, unspecified site; F17.200 Nicotine dependence, unspecified, uncomplicated; M10.9 Gout, unspecified; Z99.2 Dependence on renal dialysis; Z98.51 Tubal ligation status; Z86.73 Personal history of transient ischemic attack (TIA), and cerebral infarction without residual deficits
CPT/HCPCS: 93005; 93010; 99283; Q0162

== ENCOUNTER 2017-12-14 07:46 | Emergency (ER) | payer MEDICARE ==
[2017-12-14 08:18] LABS: Basophils % (Auto) 0.4 % (0.0-1.8); Eosinophils % (Auto) 0.4 % (0.0-4.3); Hemoglobin 8.6 gm/dl (10.1-14.3); Lymphocytes # (Auto) 0.5 K/mm3 (1.2-5.4); Lymphocytes % (Auto) 17.2 % (13.4-35.0); Mean Corpuscular HGB Conc 33 % (30-34); Mean Corpuscular Hemoglobin 28 pg (28-32); Mean Corpuscular Volume 85 fl (79-97); Monocytes # (Auto) 0.5 K/mm3 (0.0-0.8); Monocytes % (Auto) 15.2 % (0.0-7.3); Platelet Count 294 K/mm3 (140-440); Red Blood Count 3.05 M/mm3 (3.65-5.03)
[2017-12-14 08:23] LABS: Red Cell Distribution Width 23.8 % (13.2-15.2)
[2017-12-14 09:06] LABS: Calcium 9.3 mg/dL (8.4-10.2)
[2017-12-14 09:38] LABS: Albumin 3.4 g/dL (3.9-5)
[2017-12-14] MEDS ORDERED: PERCOCET 5/325 PO ONE (09:40)
[2017-12-14] MEDS ORDERED: ZOFRAN ODT PO ONE (09:40)
--- NOTE | 2017-12-14 10:05 | Emergency Department Report ---
ED Chest Pain HPI - General Chief Complaint: Chest Pain Stated Complaint: N&V Time Seen by Provider: 12/14/17 08:57 Source: patient, EMS Mode of arrival: Wheelchair Limitations: No Limitations - History of Present Illness Initial Comments: 67 year old female the past medical history of end-stage renal disease on dialysis Sunday, Sunday, Sunday, CAD with stents, CVA, CHF, hypertension, multiple ER visits for chest pain and abdominal pain presents to the hospital complaints of chest pain and abdominal pain. Patient states that chest pain is been going on for 3 days. It is intermittent and and is at night. Patient states the pain wakes her up it feels like someone is striking her chest with a sledgehammer. Positive social shortness of breath. Positive cough productive of yellow sputum. No fever reported. Patient also having upper abdominal pain for the last 3-4 weeks. Pain is worse with palpation. See with one episode of vomiting M diarrhea reported. No reports of melena, hematochezia, or hematemesis. Patient has been compliant with dialysis and is due today. Pump Stitcher: Dr. Todd, CARD: [place] [facility] Severity scale (0 -10): 10 - Related Data Home Medications Medication Instructions Recorded Confirmed Last Taken Sennosides [Senna Lax] 8.6 mg PO DAILY PRN 09/27/17 12/05/17 11/19/17 ISOSORBIDE MONOnitrate [Imdur ER] 30 mg PO QDAY 10/14/17 12/05/17 11/19/17 Dialyvite 800 Plus D Wafer 800 mg PO DAILY 11/05/17 12/05/17 11/19/17 Previous Rx's Medication Instructions Recorded Last Taken Type Carvedilol [Coreg] 12.5 mg PO BID #60 tablet 06/27/17 11/19/17 Rx Clopidogrel [Plavix] 75 mg PO QDAY #30 tablet 06/27/17 11/19/17 Rx Dicyclomine [Bentyl] 10 mg PO TID PRN #30 capsule 09/13/17 11/19/17 Rx Atorvastatin Calcium [Lipitor] 40 mg PO DAILY #30 tablet 11/06/17 11/19/17 Rx Pantoprazole [Protonix TAB] 40 mg PO QDAY #30 tablet 11/20/17 Unknown Rx oxyCODONE /ACETAMINOPHEN [Percocet 1 tab PO QHS PRN #5 tablet 11/20/17 Unknown Rx 5/325 mg] Levofloxacin [Levaquin TAB] 250 mg PO Q48HR #2 tablet 11/26/17 Unknown Rx traMADol [Ultram] 50 mg PO Q6HR PRN #10 tablet 12/06/17 Unknown Rx HYDROcodone/APAP 5-325 [Nicolaus 1 each PO Q6HR PRN #20 tablet 12/14/17 Unknown Rx 5/325] Ondansetron [Zofran Odt] 4 mg PO Q8HR PRN #20 tab.rapdis 12/14/17 Unknown Rx Allergies Allergy/AdvReac Type Severity Reaction Status Date / Time No Known Allergies Allergy Verified 10/21/17 05:14 Heart Score - HEART Score History: Slightly suspicious EKG: Non-specific Age: > 65 Risk factors: > 3 risk factors or hx of atherosclerotic disease Troponin: 1-3x normal limit HEART Score: 6 ED Review of Systems ROS: Stated complaint: N&V Other details as noted in HPI Comment: All other systems reviewed and negative ED Past Medical Hx - Past Medical History Previous Medical History?: Yes Hx Hypertension: Yes (1966) Hx CVA: Yes (x 2) Hx Heart Attack/AMI: Yes Hx Congestive Heart Failure: Yes Hx Diabetes: No Hx Deep Vein Thrombosis: No Hx GERD: No Hx Liver Disease: No Hx Renal Disease: Yes (Dialysis MWF) Hx Sickle Cell Disease: No Hx Arthritis: Yes Hx Headaches / Migraines: No Hx Seizures: No Hx Kidney Stones: No Hx Asthma: No Hx COPD: No Hx Tuberculosis: No Hx Dementia: No Hx HIV: No Additional medical history: enlarged heart, gout, LCH CORONARY ANGIOGRAPHY [place] 08/06/2017-NONOBSTRUCTING HEART PER DR GIDEON BENOIT, dialysis - Surgical History Past Surgical History?: Yes Hx Coronary Stent: No Hx Open Heart Surgery: No Hx Pacemaker: No Hx Internal Defibrillator: No Hx Cholecystectomy: No Hx Appendectomy: No Hx Breast Surgery: No Additional Surgical History: tubal ligation, vas cath. LUE fistula. cardiac workup includes a stress test on 12/21/2016 that was unremarkable. Patient status post PCI of RCA with subsequent subacute thrombus of the proximal RCA stent and angioplasty with resolution of thrombosis on November 2016. AICD placement Aug 2017. PCI 03/22/17 of RCA. 05/01/17 neg Lexiscan stress - Social History Smoking Status: Never Smoker Substance Use Type: None - Medications Home Medications: Home Medications Medication Instructions Recorded Confirmed Last Taken Type Carvedilol [Coreg] 12.5 mg PO BID #60 tablet 06/27/17 12/05/17 11/19/17 Rx Clopidogrel [Plavix] 75 mg PO QDAY #30 tablet 06/27/17 12/05/17 11/19/17 Rx Dicyclomine [Bentyl] 10 mg PO TID PRN #30 capsule 09/13/17 12/05/17 11/19/17 Rx Sennosides [Senna Lax] 8.6 mg PO DAILY PRN 09/27/17 12/05/17 11/19/17 History ISOSORBIDE MONOnitrate [Imdur ER] 30 mg PO QDAY 10/14/17 12/05/17 11/19/17 History Dialyvite 800 Plus D Wafer 800 mg PO DAILY 11/05/17 12/05/17 11/19/17 History Atorvastatin Calcium [Lipitor] 40 mg PO DAILY #30 tablet 11/06/17 12/05/1711/19 Rx Pantoprazole [Protonix TAB] 40 mg PO QDAY #30 tablet 11/20/17 12/05/17 Unknown Rx oxyCODONE /ACETAMINOPHEN [Percocet 1 tab PO QHS PRN #5 tablet 11/20/17 12/05/17 Unknown Rx 5/325 mg] Levofloxacin [Levaquin TAB] 250 mg PO Q48HR #2 tablet 11/26/17 12/05/17 Unknown Rx traMADol [Ultram] 50 mg PO Q6HR PRN #10 tablet 12/06/17 Unknown Rx HYDROcodone/APAP 5-325 [Nicolaus 1 each PO Q6HR PRN #20 tablet 12/14/17 Unknown Rx 5/325] Ondansetron [Zofran Odt] 4 mg PO Q8HR PRN #20 tab.rapdis 12/14/17 Unknown Rx ED Physical Exam - General Limitations: No Limitations - Other Other exam information: General: No limitations, patient is alert in no acute distress Head exam: Atraumatic, normocephalic Eyes exam: Normal appearance, pupils equal reactive to light, extraocular movements intact ENT: Moist mucous membrane, normal oropharynx Neck exam: Normal inspection, full range of motion, no meningismus nontender Respiratory exam: Clear to auscultation bilateral, no wheezes, rales, crackles, mild chest wall tenderness Cardiovascular: Normal rate and rhythm, normal heart sounds Abdomen: Soft, nondistended, epigastric tenderness, with normal bowel sounds, no rebound, or guarding Extremity: Full range of motion normal inspection no deformity Back: Normal Inspection, full range of motion, no tenderness Neurologic: Alert, oriented x3, cranial nerves intact, no motor or sensory deficit Psychiatric: normal affect, normal mood Skin: Warm, dry, intact ED Course Vital Signs 12/14/17 12/14/17 12/14/17 07:51 09:18 09:31 Pulse Rate 77 78 80 Respiratory 16 17 16 Rate Blood Pressure 154/67 146/65 O2 Sat by Pulse 100 98 Oximetry 12/14/17 12/14/17 12/14/17 09:45 10:01 10:15 Pulse Rate 74 77 74 Respiratory 21 13 12 Rate Blood Pressure 146/65 146/65 140/45 O2 Sat by Pulse 97 96 95 Oximetry 12/14/17 12/14/17 12/14/17 10:31 10:45 11:01 Pulse Rate 73 66 74 Respiratory 15 13 14 Rate Blood Pressure 140/45 127/43 127/43 O2 Sat by Pulse 98 91 95 Oximetry - Reevaluation(s) Reevaluation #1: 12/14/17 12:23 Patient received Percocet and Zofran. No vomiting. Patient tolerating food intake and wanted to eat in the ED - Consultations Consultation #1: 12/14/17 10:05 Yady Roberts with [facility] consulted 12/14/17 10:[address] Ovalles came to bedside to evaluate pt. States pain reproducible and likely due to costochondritis as opposed to cardiac cause See their note Consultation #2: 12/14/17 11:08 case d/w Dr Tarango (nephro) pt may be transferred to her dialysis center upon d/c JACQUES score - Jacques Score Age > 65: (1) Yes Aspirin use within the Past 7 Days: (1) Yes 3 or more CAD Risk Factors: (1) Yes 2 or more Angina events in past 24 hrs: (0) No Known CAD with more than 50% Stenosis: (1) Yes Elevated Cardiac Markers: (1) Yes ST Deviation Greater than 0.5mm: (0) No JACQUES Score: 5 ED Medical Decision Making - Lab Data Result diagrams: 12/14/17 08:03 12/14/17 08:03 Lab Results 12/14/17 12/14/17 12/14/17 Range/Units 08:03 08:03 08:03 WBC 3.1 L (4.5-11.0) K/mm3 RBC 3.05 L (3.65-5.03) M/mm3 Hgb 8.6 L (10.1-14.3) gm/dl Hct 26.0 L (30.3-42.9) % MCV 85 (79-97) fl MCH 28 (28-32) pg MCHC 33 (30-34) % RDW 23.8 H (13.2-15.2) % Plt Count 294 (140-440) K/mm3 Lymph % (Auto) 17.2 (13.4-35.0) % Glenn % (Auto) 15.2 H (0.0-7.3) % Eos % (Auto) 0.4 (0.0-4.3) % Baso % (Auto) 0.4 (0.0-1.8) % Lymph # 0.5 L (1.2-5.4) K/mm3 Glenn # 0.5 (0.0-0.8) K/mm3 Eos # 0.0 (0.0-0.4) K/mm3 Baso # 0.0 (0.0-0.1) K/mm3 Seg Neutrophils % 66.8 (40.0-70.0) % Seg Neutrophils # 2.1 (1.8-7.7) K/mm3 Sodium 140 (137-145) mmol/L Potassium 4.0 (3.6-5.0) mmol/L Chloride 89.9 L (98-107) mmol/L Carbon Dioxide 33 H (22-30) mmol/L Anion Gap 21 mmol/L BUN 27 H (7-17) mg/dL Creatinine 6.3 H (0.7-1.2) mg/dL Estimated GFR 8 ml/min BUN/Creatinine Ratio 4 % Glucose 96 (65-100) mg/dL Calcium 9.3 (8.4-10.2) mg/dL Total Bilirubin 0.60 (0.1-1.2) mg/dL Direct Bilirubin 0.2 (0-0.2) mg/dL Indirect Bilirubin 0.4 mg/dL AST 12 (5-40) units/L ALT 9 (7-56) units/L Alkaline Phosphatase 98 (35-129) units/L Troponin T 0.245 H* (0.00-0.029) ng/mL Total Protein 7.0 (6.3-8.2) g/dL Albumin 3.4 L (3.9-5) g/dL Albumin/Globulin Ratio 0.9 % Triglycerides 96 (2-149) mg/dL Cholesterol 155 (50-199) mg/dL LDL Cholesterol Direct 77 (50-130) mg/dL HDL Cholesterol 58 (40-59) mg/dL Cholesterol/HDL Ratio 2.67 % Lipase 22 (13-60) units/L 03/30/18 Range/Units 10:47 WBC (4.5-11.0) K/mm3 RBC (3.65-5.03) M/mm3 Hgb (10.1-14.3) gm/dl Hct (30.3-42.9) % MCV (79-97) fl MCH (28-32) pg MCHC (30-34) % RDW (13.2-15.2) % Plt Count (140-440) K/mm3 Lymph % (Auto) (13.4-35.0) % Glenn % (Auto) (0.0-7.3) % Eos % (Auto) (0.0-4.3) % Baso % (Auto) (0.0-1.8) % Lymph # (1.2-5.4) K/mm3 Glenn # (0.0-0.8) K/mm3 Eos # (0.0-0.4) K/mm3 Baso # (0.0-0.1) K/mm3 Seg Neutrophils % (40.0-70.0) % Seg Neutrophils # (1.8-7.7) K/mm3 Sodium (137-145) mmol/L Potassium (3.6-5.0) mmol/L Chloride (98-107) mmol/L Carbon Dioxide (22-30) mmol/L Anion Gap mmol/L BUN (7-17) mg/dL Creatinine (0.7-1.2) mg/dL Estimated GFR ml/min BUN/Creatinine Ratio % Glucose (65-100) mg/dL Calcium (8.4-10.2) mg/dL Total Bilirubin (0.1-1.2) mg/dL Direct Bilirubin (0-0.2) mg/dL Indirect Bilirubin mg/dL AST (5-40) units/L ALT (7-56) units/L Alkaline Phosphatase (35-129) units/L Troponin T 0.265 H* (0.00-0.029) ng/mL Total Protein (6.3-8.2) g/dL Albumin (3.9-5) g/dL Albumin/Globulin Ratio % Triglycerides (2-149) mg/dL Cholesterol (50-199) mg/dL LDL Cholesterol Direct (50-130) mg/dL HDL Cholesterol (40-59) mg/dL Cholesterol/HDL Ratio % Lipase (13-60) units/L - EKG Data -: EKG Interpreted by Dc EKG shows normal: sinus rhythm, axis (qrs -10), QRS complexes (105), ST-T waves (lvh with repol) Rate: normal (85) - EKG Data When compared to previous EKG there are: no significant change - Radiology Data Radiology results: report reviewed Read by radiologist Chest x-ray: No acute findings - Medical Decision Making Chest pain Chronic, reproducible, stable troponin 2, unchanged EKG, cardiology consulted and believed to be due to noncardiac cause Abdominal pain Chronic, multiple negative CT scans in the past. No acute laboratory abnormalities related to abdominal pain. Chronic anemia stable, patient has an appetite and wanted food in the ED. Tolerate by mouth intake End-stage renal disease Chronic, no hyperkalemia, patient is stable for discharged directly to dialysis center to receive her scheduled dialysis - Differential Diagnosis chronic pain, SC, unstable angina, pancreatitis, gastritis, PUD Critical Care Time: No Critical care attestation.: If time is entered above; I have spent that time in minutes in the direct care of this critically ill patient, excluding procedure time. ED Disposition Clinical Impression: Chest wall pain, Chronic abdominal pain, ESRD (end stage renal disease) on dialysis, Chronic chest pain Disposition: TO HOME OR SELFCARE Is pt being admited?: No Does the pt Need Aspirin: No Condition: Stable Instructions: Costochondritis (ED), Abdominal Pain (ED) Additional Instructions: Follow-up with your make care doctor and power shovel mechanic. Prescriptions: HYDROcodone/APAP 5-325 [Nicolaus 5/325] 1 each PO Q6HR PRN #20 tablet PRN Reason: Pain Ondansetron [Zofran Odt] 4 mg PO Q8HR PRN #20 tab.rapdis PRN Reason: Nausea And Vomiting Referrals: [facility] [Other] - 2-3 Days Time of Disposition: 12:26
[2017-12-14 10:12] LABS: Bilirubin,Direct 0.2 mg/dL (0-0.2); Chol/HDL Ratio 2.67 %
--- NOTE | 2017-12-14 11:05 | XRay Report ---
PORTABLE CHEST INDICATION: Shortness of breath, chest pain. COMPARISON: 12/06/2017 FINDINGS: Portable, frontal chest radiograph again demonstrates mild cardiomegaly, aortic knob calcifications, left chest wall battery pack with a single midline lead tip projecting medial to the aortic knob, subtle left retrocardiac hazy opacity, EKG leads and bilateral shoulder degenerative changes. Stable few left axillary/upper arm medial soft tissues surgical clips as well. CONCLUSION: No significant interval change with various incidental findings, as above. Thank you for the opportunity to participate in this patient's care.
[2017-12-14 11:08] VITALS: BP 127/43
--- NOTE | 2017-12-14 12:08 | Consultation ---
History of Present Illness Consult date: 12/14/17 Requesting physician: DRISS CUNNINGHAM Consult reason: chest pain History of present illness: The patient is a 67 YO female with a past medical history significant for CAD, s /p PCI (PCI of RCA in 08/2016 with subsequent subacute thrombus of the proximal RCA stent and balloon angioplasty with resolution of thrombus on 11/28/2016, s/p additional PCI of RCA on 03/22/2017 @ [facility]), dilated CMP, s/p S AICD implantation at [facility] on 05/17/2017, systolic HF, ESRD on HD, HTN, PVD, recurrent chest pain, paz's esophagitis and diverticulitis, and tobacco use. She is followed in our office by Dr. Ford. She is a rather poor historian. She presented with c/o chest pain and epigastric pain since this AM. She describes her chest pain as a substernal, nonexertional, nonradiating intermittent "hitting" which is reproducible by palpation. She states that the pain awoke her from sleep this AM. She states that she also had a bout of n/v last night. She denies any palpitations, SOB, diaphoresis, dizziness or syncope. LHC done 07/27/2017 at [facility] showed nonobstructive CAD with severely reduced LVEF and elevated LVEDP (LM: LI, LAD: mild to moderate LI, LCx: LI, RCA: dominant, mild-moderate LI with patent previous RCA stent, LVEDP: 38 mmHg, LVEF 25 % with diffuse global hypokinesis). Echo done 07/27/2017 showed EF 20-25%, mildly dilated LA, moderate to severe TR , moderate MR, moderately reduced RV systolic function, RVSP 63mmHg, moderate pulm HTN. Lexiscan MPI stress test done 10/04/2017 showed suggestion of prior infarction with mild residual ischemia in the left circ territory. Past History Past Medical History: CAD, dialysis, ESRD, heart failure, hypertension Past Surgical History: Other (AICD; PCI) Social history: smoking. denies: alcohol abuse, prescription drug abuse Medications and Allergies Allergies Allergy/AdvReac Type Severity Reaction Status Date / Time No Known Allergies Allergy Verified 10/21/17 05:14 Home Medications Medication Instructions Recorded Confirmed Last Taken Type Carvedilol [Coreg] 12.5 mg PO BID #60 tablet 06/27/17 12/05/17 11/19/17 Rx Clopidogrel [Plavix] 75 mg PO QDAY #30 tablet 06/27/17 12/05/17 11/19/17 Rx Dicyclomine [Bentyl] 10 mg PO TID PRN #30 capsule 09/13/17 12/05/17 11/19/17 Rx Sennosides [Senna Lax] 8.6 mg PO DAILY PRN 09/27/17 12/05/17 11/19/17 History ISOSORBIDE MONOnitrate [Imdur ER] 30 mg PO QDAY 10/14/17 12/05/17 11/19/17 History Dialyvite 800 Plus D Wafer 800 mg PO DAILY 11/05/17 12/05/17 11/19/17 History Atorvastatin Calcium [Lipitor] 40 mg PO DAILY #30 tablet 11/06/17 12/05/1711/19 Rx Pantoprazole [Protonix TAB] 40 mg PO QDAY #30 tablet 11/20/17 12/05/17 Unknown Rx oxyCODONE /ACETAMINOPHEN [Percocet 1 tab PO QHS PRN #5 tablet 11/20/17 12/05/17 Unknown Rx 5/325 mg] Levofloxacin [Levaquin TAB] 250 mg PO Q48HR #2 tablet 11/26/17 12/05/17 Unknown Rx traMADol [Ultram] 50 mg PO Q6HR PRN #10 tablet 12/06/17 Unknown Rx Review of Systems Constitutional: no weight loss, no weight gain, no fever, no chills, no sweats Ears, nose, mouth and throat: no ear pain, no nose pain, no sinus pressure, no sinus pain Cardiovascular: chest pain, no orthopnea, no palpitations, no rapid/irregular heart beat, no edema, no syncope, no lightheadedness, no shortness of breath, no dyspnea on exertion Respiratory: no cough, no shortness of breath, no dyspnea on exertion, no congestion, no pain on inspiration Gastrointestinal: abdominal pain, nausea, vomiting, no diarrhea, no constipation , no change in bowel habits Genitourinary Female: no pelvic pain, no flank pain, no urinary frequency, no urgency Musculoskeletal: no neck stiffness, no neck pain, no shooting arm pain, no arm numbness/tingling, no low back pain, no shooting leg pain, no leg numbness/ tingling, no redness of joints Integumentary: no rash, no pruritis, no redness, no sores, no wounds Neurological: no head injury, no paralysis, no weakness, no parathesias, no numbness, no tingling, no seizures, no syncope Psychiatric: no anxiety Endocrine: no cold intolerance, no heat intolerance Hematologic/Lymphatic: no easy bruising, no easy bleeding, no lymphadenopathy Allergic/Immunologic: no urticaria, no wheezing, no persistent infections Physical Examination Vital Signs Pulse Resp BP Pulse Ox 77 16 154/67 100 12/14/17 07:51 12/14/17 07:51 12/14/17 07:51 12/14/17 07:51 General appearance: no acute distress HEENT: Positive: PERRL, Normocephaly, Mucus Membranes Moist Neck: Positive: neck supple, trachea midline Cardiac: Positive: Reg Rate and Rhythm, S1/S2, Systolic Murmur Lungs: Positive: clear to auscultation Neuro: Positive: Grossly Intact, Cranial Nerve 2-12 Intact Abdomen: Positive: Soft. Negative: Tender Skin: Positive: Clear. Negative: Rash, Wound Musculoskeletal: No Fluid Collection, No Pain, Normal Range of Motion Extremities: Absent: edema Results 12/14/17 08:03 12/14/17 08:03 Cardiac Enzymes 12/14/17 Range/Units 08:03 AST 12 (5-40) units/L Lipids 12/14/17 Range/Units 08:03 Triglycerides 96 (2-149) mg/dL Cholesterol 155 (50-199) mg/dL HDL Cholesterol 58 (40-59) mg/dL Cholesterol/HDL Ratio 2.67 % CBC 12/14/17 Range/Units 08:03 WBC 3.1 L (4.5-11.0) K/mm3 RBC 3.05 L (3.65-5.03) M/mm3 Hgb 8.6 L (10.1-14.3) gm/dl Hct 26.0 L (30.3-42.9) % Plt Count 294 (140-440) K/mm3 Lymph # 0.5 L (1.2-5.4) K/mm3 [place] # 0.5 (0.0-0.8) K/mm3 Eos # 0.0 (0.0-0.4) K/mm3 Baso # 0.0 (0.0-0.1) K/mm3 Comprehensive Metabolic Panel 12/14/17 12/14/17 Range/Units 08:03 08:03 Sodium 140 (137-145) mmol/L Potassium 4.0 (3.6-5.0) mmol/L Chloride 89.9 L (98-107) mmol/L Carbon Dioxide 33 H (22-30) mmol/L BUN 27 H (7-17) mg/dL Creatinine 6.3 H (0.7-1.2) mg/dL Glucose 96 (65-100) mg/dL Calcium 9.3 (8.4-10.2) mg/dL Direct Bilirubin 0.2 (0-0.2) mg/dL Indirect Bilirubin 0.4 mg/dL AST 12 (5-40) units/L ALT 9 (7-56) units/L Alkaline Phosphatase 98 (35-129) units/L Total Protein 7.0 (6.3-8.2) g/dL Albumin 3.4 L (3.9-5) g/dL - Imaging and Cardiology Echo: report reviewed (07/27/2017 showed EF 20-25%, mildly dilated LA, moderate to severe TR, moderate MR, moderately reduced RV systolic function, RVSP 63mmHg , moderate pulm HTN) Cardiac cath: report reviewed (07/27/2017 at [facility] showed nonobstructive CAD with severely reduced LVEF and elevated LVEDP (LM: LI, LAD: mild to moderate LI , LCx: LI, RCA: dominant, mild-moderate LI with patent previous RCA stent, LVEDP : 38 mmHg, LVEF 25 % with diffuse global hypokinesis). ) EKG: report reviewed, image reviewed EKG interpretations - Telemetry EKG Rhythm: Sinus Rhythm - EKG Sinus rhythms and dysrhythmias: sinus rhythm Chamber hypertrophy or enlargement: left ventricular hypertro Repolarization changes or abnormalities: repolarization abn secondary to ventricular hypertrophy, ST or T wave suggestive of ischemia Assessment and Plan Assessment: Chest pain, atypical - reproducible with palpation; recurrent; ECG with NAF Epigastric pain Elevated troponins - ECG with no acute ischemic changes; decreased from prior admissions CAD - PCI of RCA in 08/2016 with subsequent subacute thrombus of the proximal RCA stent and balloon angioplasty with resolution of thrombus on 11/28/2016, s/p additional PCI of RCA on 03/22/2017 @ [facility] Dilated I/CMP - EF 20-25% S/p S AICD 04/2017 NSVT ESRD on HD Anemia Hypertension Hyperlipidemia PVD Paz's esophagitis and diverticulitis Tobacco use - cessation encouraged H/o noncompliance with medication regimen Plan: Lexiscan MPI stress test done 10/04/2017 showed suggestion of prior infarction with mild residual ischemia in the left circ territory. LHC done 07/27/2017 at [facility] showed nonobstructive CAD with severely reduced LVEF and elevated LVEDP (LM: LI, LAD: mild to moderate LI, LCx: LI, RCA: dominant, mild-moderate LI with patent previous RCA stent, LVEDP: 38 mmHg, LVEF 25 % with diffuse global hypokinesis). EKG with no acute ischemic changes. Currently stable cardiac status. Cont home cardiac regimen. Pt may discharge home from cardiology standpoint. Recommend follow up in our office with Amanda Spicer NP, within 1-2 weeks of hospital discharge ([phone]). Assessment and plan reviewed with pt at bedside. The patient has been seen in conjunction with Dr. Ovalles who agrees with the assessment and plan of care.
== END 2017-12-14 14:30 | disposition home or self-care (01) ==
LOC: ED 07:46
DX: R07.89 Other chest pain (principal); I13.0 Hypertensive heart and chronic kidney disease with heart failure and stage 1 through stage 4 chronic kidney disease, or unspecified chronic kidney disease; N18.9 Chronic kidney disease, unspecified; Z99.2 Dependence on renal dialysis; M19.90 Unspecified osteoarthritis, unspecified site; M10.9 Gout, unspecified; Z98.51 Tubal ligation status
CPT/HCPCS: 36415; 71045; 80048; 80061; 80074; 83690; 84484; 85025; 93005; 93010; 99284; Q0162

== ENCOUNTER 2017-12-17 09:33 | Emergency (ER) | payer MEDICARE ==
[2017-12-17] MEDS ORDERED: ASPIRIN PO ONE (10:23)
[2017-12-17 10:45] LABS: Basophils % (Auto) 0.6 % (0.0-1.8); Eosinophils # (Auto) 0.1 K/mm3 (0.0-0.4); Eosinophils % (Auto) 1.1 % (0.0-4.3); Hemoglobin 8.4 gm/dl (10.1-14.3); Lymphocytes # (Auto) 1.3 K/mm3 (1.2-5.4); Lymphocytes % (Auto) 22.7 % (13.4-35.0); Mean Corpuscular HGB Conc 32 % (30-34); Mean Corpuscular Hemoglobin 29 pg (28-32); Mean Corpuscular Volume 89 fl (79-97); Monocytes # (Auto) 0.7 K/mm3 (0.0-0.8); Monocytes % (Auto) 11.3 % (0.0-7.3); Platelet Count 296 K/mm3 (140-440); Red Blood Count 2.94 M/mm3 (3.65-5.03)
[2017-12-17 10:46] LABS: Red Cell Distribution Width 23.9 % (13.2-15.2)
[2017-12-17 11:04] LABS: Calcium 9.2 mg/dL (8.4-10.2)
[2017-12-17 12:13] VITALS: BP 138/47
[2017-12-17] MEDS ORDERED: ULTRAM PO ONE (12:47)
--- NOTE | 2017-12-17 12:47 | Emergency Department Report ---
ED Chest Pain HPI - General Chief Complaint: Chest Pain Stated Complaint: CHEST PAIN Source: patient Mode of arrival: Wheelchair Limitations: No Limitations - History of Present Illness Initial Comments: Ms. Molina is a 67 yo female who presents from [facility] with central chest pain and cough. She is unable to describe chest pain. She is more concerned insomnia and tailbone soreness. Chest pain has been present with one day since last night. Pain is severe. Gradual onset last night. Mild nondescript abdominal pain. No radiation of pain. Severity scale (0 -10): 8 - Related Data Home Medications Medication Instructions Recorded Confirmed Last Taken Sennosides [Senna Lax] 8.6 mg PO DAILY PRN 09/27/17 12/05/17 11/19/17 ISOSORBIDE MONOnitrate [Imdur ER] 30 mg PO QDAY 10/14/17 12/05/17 11/19/17 Dialyvite 800 Plus D Wafer 800 mg PO DAILY 11/05/17 12/05/17 11/19/17 Previous Rx's Medication Instructions Recorded Last Taken Type Carvedilol [Coreg] 12.5 mg PO BID #60 tablet 06/27/17 11/19/17 Rx Clopidogrel [Plavix] 75 mg PO QDAY #30 tablet 06/27/17 11/19/17 Rx Dicyclomine [Bentyl] 10 mg PO TID PRN #30 capsule 09/13/17 11/19/17 Rx Atorvastatin Calcium [Lipitor] 40 mg PO DAILY #30 tablet 11/06/17 11/19/17 Rx Pantoprazole [Protonix TAB] 40 mg PO QDAY #30 tablet 11/20/17 Unknown Rx oxyCODONE /ACETAMINOPHEN [Percocet 1 tab PO QHS PRN #5 tablet 11/20/17 Unknown Rx 5/325 mg] Levofloxacin [Levaquin TAB] 250 mg PO Q48HR #2 tablet 11/26/17 Unknown Rx traMADol [Ultram] 50 mg PO Q6HR PRN #10 tablet 12/06/17 Unknown Rx HYDROcodone/APAP 5-325 [[place] 1 each PO Q6HR PRN #14 tablet 12/14/17 Unknown Rx 5/325] Ondansetron [Zofran Odt] 4 mg PO Q8HR PRN #20 tab.rapdis 12/14/17 Unknown Rx Allergies Allergy/AdvReac Type Severity Reaction Status Date / Time No Known Allergies Allergy Verified 10/21/17 05:14 Heart Score - HEART Score History: Slightly suspicious EKG: Non-specific Age: > 65 Risk factors: 1-2 risk factors Troponin: 1-3x normal limit HEART Score: 5 ED Review of Systems ROS: Stated complaint: CHEST PAIN Other details as noted in HPI Comment: All other systems reviewed and negative Constitutional: denies: fever, malaise Respiratory: cough Cardiovascular: chest pain Gastrointestinal: abdominal pain ED Past Medical Hx - Past Medical History Hx Hypertension: Yes (1966) Hx CVA: Yes (x 2) Hx Heart Attack/AMI: Yes Hx Congestive Heart Failure: Yes Hx Diabetes: No Hx Deep Vein Thrombosis: No Hx GERD: No Hx Liver Disease: No Hx Renal Disease: Yes (Dialysis MWF) Hx Sickle Cell Disease: No Hx Arthritis: Yes Hx Headaches / Migraines: No Hx Seizures: No Hx Kidney Stones: No Hx Asthma: No Hx COPD: No Hx Tuberculosis: No Hx Dementia: No Hx HIV: No Additional medical history: enlarged heart, gout, [facility] CORONARY ANGIOGRAPHY [place] 08/06/2017-NONOBSTRUCTING HEART PER DR GIDEON BENOIT, dialysis - Surgical History Hx Coronary Stent: No Hx Open Heart Surgery: No Hx Pacemaker: No Hx Internal Defibrillator: No Hx Cholecystectomy: No Hx Appendectomy: No Hx Breast Surgery: No Additional Surgical History: tubal ligation, vas cath. LUE fistula. cardiac workup includes a stress test on 12/21/2016 that was unremarkable. Patient status post PCI of RCA with subsequent subacute thrombus of the proximal RCA stent and angioplasty with resolution of thrombosis on November 2016. AICD placement Aug 2017. PCI 03/22/17 of RCA. 05/01/17 neg Lexiscan stress - Social History Smoking Status: Former Smoker Substance Use Type: None - Medications Home Medications: Home Medications Medication Instructions Recorded Confirmed Last Taken Type Carvedilol [Coreg] 12.5 mg PO BID #60 tablet 06/27/17 12/05/17 11/19/17 Rx Clopidogrel [Plavix] 75 mg PO QDAY #30 tablet 06/27/17 12/05/17 11/19/17 Rx Dicyclomine [Bentyl] 10 mg PO TID PRN #30 capsule 09/13/17 12/05/17 11/19/17 Rx Sennosides [Senna Lax] 8.6 mg PO DAILY PRN 09/27/17 12/05/17 11/19/17 History ISOSORBIDE MONOnitrate [Imdur ER] 30 mg PO QDAY 10/14/17 12/05/17 11/19/17 History Dialyvite 800 Plus D Wafer 800 mg PO DAILY 11/05/17 12/05/17 11/19/17 History Atorvastatin Calcium [Lipitor] 40 mg PO DAILY #30 tablet 11/06/17 12/05/1711/19 Rx Pantoprazole [Protonix TAB] 40 mg PO QDAY #30 tablet 11/20/17 12/05/17 Unknown Rx oxyCODONE /ACETAMINOPHEN [Percocet 1 tab PO QHS PRN #5 tablet 11/20/17 12/05/17 Unknown Rx 5/325 mg] Levofloxacin [Levaquin TAB] 250 mg PO Q48HR #2 tablet 11/26/17 12/05/17 Unknown Rx traMADol [Ultram] 50 mg PO Q6HR PRN #10 tablet 12/06/17 Unknown Rx HYDROcodone/APAP 5-325 [[place] 1 each PO Q6HR PRN #14 tablet 12/14/17 Unknown Rx 5/325] Ondansetron [Zofran Odt] 4 mg PO Q8HR PRN #20 tab.rapdis 12/14/17 Unknown Rx ED Physical Exam - General Limitations: No Limitations General appearance: alert, in no apparent distress - Head Head exam: Present: atraumatic, normocephalic - Eye Eye exam: Present: normal appearance - ENT ENT exam: Present: mucous membranes moist - Neck Neck exam: Present: normal inspection - Respiratory Respiratory exam: Present: normal lung sounds bilaterally. Absent: respiratory distress, wheezes, rales, rhonchi - Cardiovascular Cardiovascular Exam: Present: regular rate, normal rhythm. Absent: systolic murmur, diastolic murmur, rubs, gallop - GI/Abdominal GI/Abdominal exam: Present: soft, normal bowel sounds. Absent: distended, tenderness, guarding, rebound - Extremities Exam Extremities exam: Present: normal inspection - Back Exam Back exam: Present: normal inspection - Neurological Exam Neurological exam: Present: alert, oriented X3 - Psychiatric Psychiatric exam: Present: normal affect - Skin Skin exam: Present: warm, dry, intact, normal color. Absent: rash ED Course Vital Signs 12/17/17 12/17/17 12/17/17 10:18 12:05 12:12 Temperature 98.3 F 97.9 F Pulse Rate 78 68 Respiratory 15 26 H 17 Rate Blood Pressure 132/68 Blood Pressure 138/47 [Right] O2 Sat by Pulse 100 100 Oximetry 12/17/17 12:16 Temperature 97.9 F Pulse Rate Respiratory Rate Blood Pressure Blood Pressure [Right] O2 Sat by Pulse Oximetry MONE score - Mone Score Age > 65: (1) Yes Aspirin use within the Past 7 Days: (1) Yes 3 or more CAD Risk Factors: (1) Yes 2 or more Angina events in past 24 hrs: (0) No Known CAD with more than 50% Stenosis: (1) Yes Elevated Cardiac Markers: (1) Yes ST Deviation Greater than 0.5mm: (0) No MONE Score: 5 ED Medical Decision Making - Lab Data Result diagrams: 12/17/17 10:38 12/17/17 10:38 Laboratory Results - last 24 hr 12/17/17 12/17/17 10:38 10:38 WBC 5.8 RBC 2.94 L Hgb 8.4 L Hct 26.0 L MCV 89 MCH 29 MCHC 32 RDW 23.9 H Plt Count 296 Lymph % (Auto) 22.7 [place] % (Auto) 11.3 H Eos % (Auto) 1.1 Baso % (Auto) 0.6 Lymph # 1.3 [place] # 0.7 Eos # 0.1 Baso # 0.0 Seg Neutrophils % 64.3 Seg Neutrophils # 3.8 Sodium 141 Potassium 3.9 Chloride 92.8 L Carbon Dioxide 31 H Anion Gap 21 BUN 45 H Creatinine 7.6 H Estimated GFR 6 BUN/Creatinine Ratio 6 Glucose 91 Calcium 9.2 Troponin T 0.157 H* D Vital Signs - 24 hr 12/17/17 12/17/17 12/17/17 10:18 12:05 12:12 Temperature 98.3 F 97.9 F Pulse Rate 78 68 Respiratory 15 26 H 17 Rate Blood Pressure 132/68 Blood Pressure 138/47 [Right] O2 Sat by Pulse 100 100 Oximetry 12/17/17 12:16 Temperature 97.9 F Pulse Rate Respiratory Rate Blood Pressure Blood Pressure [Right] O2 Sat by Pulse Oximetry - EKG Data When compared to previous EKG there are: no significant change Interpretation: unchanged when compared t 12/17/17 12:52 EKG obtained at 1031 Normal sinus rhythm 75 bpm normal axis normal QT interval positive LVH positive PVCs - Medical Decision Making Mrs. Molina presents with chest pain, abdominal pain insomnia, soreness on tailbone (no skin breakdown on exam). Chest pain is chronic, recurrent. Possibly due to microvessel disease or chest pain associated with chronic illness which is common on patient on hemodialysis. Pain may also be associated with PVCs seen on EKG. I suspect an element anxiety and depression, possibly early dementia. Mrs. Molina comes to ER several times per week. Troponin level has decreased from 0.26 level on December 14 during her last ED encounter She stated that "they won't take me at dialysis" since she was transported from the center with chest pain. I spoke with iron installer Dr. Kurtz. He explained that Mrs. Molina should be able to obtain dialysis on Sunday. dc'd home Critical care attestation.: If time is entered above; I have spent that time in minutes in the direct care of this critically ill patient, excluding procedure time. ED Disposition Clinical Impression: Chronic chest pain, ESRD (end stage renal disease) Disposition: DC- TO HOME OR SELFCARE Is pt being admited?: No Does the pt Need Aspirin: No Condition: Stable Instructions: Chest Pain (ED) Referrals: [facility] [Outside] - 3-5 Days Time of Disposition: 13:11
== END 2017-12-17 13:22 | disposition home or self-care (01) ==
LOC: ED 09:33
DX: R07.89 Other chest pain (principal); I13.2 Hypertensive heart and chronic kidney disease with heart failure and with stage 5 chronic kidney disease, or end stage renal disease; N18.6 End stage renal disease; I50.9 Heart failure, unspecified; M19.90 Unspecified osteoarthritis, unspecified site; I25.2 Old myocardial infarction; Z87.891 Personal history of nicotine dependence; Z99.2 Dependence on renal dialysis
CPT/HCPCS: 36415; 80048; 84484; 85025; 93005; 93010; 99284

== ENCOUNTER 2017-12-19 05:33 | Emergency (ER) | payer MEDICARE ==
[2017-12-19 07:03] VITALS: BP 141/55
[2017-12-19 07:35] LABS: Basophils % (Auto) 0.5 % (0.0-1.8); Eosinophils # (Auto) 0.1 K/mm3 (0.0-0.4); Eosinophils % (Auto) 1.4 % (0.0-4.3); Hemoglobin 7.4 gm/dl (10.1-14.3); Lymphocytes # (Auto) 1.3 K/mm3 (1.2-5.4); Lymphocytes % (Auto) 24.6 % (13.4-35.0); Mean Corpuscular HGB Conc 32 % (30-34); Mean Corpuscular Hemoglobin 28 pg (28-32); Mean Corpuscular Volume 89 fl (79-97); Monocytes # (Auto) 0.7 K/mm3 (0.0-0.8); Monocytes % (Auto) 13.2 % (0.0-7.3); Platelet Count 283 K/mm3 (140-440)
[2017-12-19 07:36] LABS: Red Cell Distribution Width 24.2 % (13.2-15.2)
[2017-12-19 07:59] LABS: Calcium 9.6 mg/dL (8.4-10.2)
[2017-12-19] MEDS: ASPIRIN PO ONE ×2 (08:32→08:36)
== END 2017-12-19 11:00 | disposition left against medical advice (07) ==
LOC: ED 05:33
DX: R07.89 Other chest pain (principal); Z53.21 Procedure and treatment not carried out due to patient leaving prior to being seen by health care provider
CPT/HCPCS: 36415; 80048; 84484; 85025; 93005; 93010

== ENCOUNTER 2017-12-21 11:19 | Inpatient (IN) | payer MEDICARE ==
[2017-12-21] MEDS ORDERED: ASPIRIN PO ONE (11:43)
[2017-12-21 13:03] LABS: Basophils % (Auto) 0.4 % (0.0-1.8); Eosinophils # (Auto) 0.1 K/mm3 (0.0-0.4); Eosinophils % (Auto) 0.9 % (0.0-4.3); Hematocrit 22.5 % (30.3-42.9); Hemoglobin 7.4 gm/dl (10.1-14.3); Lymphocytes # (Auto) 1.1 K/mm3 (1.2-5.4); Lymphocytes % (Auto) 18.8 % (13.4-35.0); Mean Corpuscular HGB Conc 33 % (30-34); Mean Corpuscular Hemoglobin 29 pg (28-32); Mean Corpuscular Volume 88 fl (79-97); Monocytes # (Auto) 0.8 K/mm3 (0.0-0.8); Monocytes % (Auto) 13.7 % (0.0-7.3); Platelet Count 290 K/mm3 (140-440); Red Blood Count 2.57 M/mm3 (3.65-5.03)
[2017-12-21 13:07] LABS: Red Cell Distribution Width 24.5 % (13.2-15.2)
[2017-12-21 13:15] LABS: Calcium 9.6 mg/dL (8.4-10.2)
[2017-12-21] MEDS ORDERED: NACL 0.9% 100 ML IV PRN (13:33)
[2017-12-21 13:40] LABS: Chol/HDL Ratio 2.36 %
--- NOTE | 2017-12-21 18:47 | History and Physical Report ---
History of Present Illness Chief complaint: Im hurting all over, and in my chest too History of present illness: 67 YO Female with HTN, CVA, Combined CHF( EF 30%), DM, ESRD on HD(M,W,F), GERD, CAD, Chronic Pain, Nicotine Dependence presents to ED for evaluation. Pt states that she experienced pain all over her body over the past 2 days with worsened symptoms this morning. Pt states that pain is 10/10, substernal, nonradiating, worse with movement, relieved weith rest. Pt denies fever, chills, palpitations, productive cough, orthopnea, difficulty breathing, NVD, syncope, vertigo, prolonged immobility/travel, individual/family history of DVT/PE. Pt seen and evaluated in ED and found to have evidence of ACS. Pt treated with supplemental oxygen, nebulizer therapy, NIPPV. Nephrology and Cardiology teams consulted. Past History Past Medical History: CAD, diabetes, GERD, heart failure, hypertension, stroke Past Surgical History: Other (Stent Placement, AICD) Social history: . denies: smoking, alcohol abuse, prescription drug abuse Family history: hypertension Medications and Allergies Allergies Allergy/AdvReac Type Severity Reaction Status Date / Time No Known Allergies Allergy Verified 10/21/17 05:14 Home Medications Medication Instructions Recorded Confirmed Last Taken Type Carvedilol [Coreg] 12.5 mg PO BID #60 tablet 06/27/17 12/05/17 11/19/17 Rx Clopidogrel [Plavix] 75 mg PO QDAY #30 tablet 06/27/17 12/05/17 11/19/17 Rx Dicyclomine [Bentyl] 10 mg PO TID PRN #30 capsule 09/13/17 12/05/17 11/19/17 Rx Sennosides [Senna Lax] 8.6 mg PO DAILY PRN 09/27/17 12/05/17 11/19/17 History ISOSORBIDE MONOnitrate [Imdur ER] 30 mg PO QDAY 10/14/17 12/05/17 11/19/17 History Dialyvite 800 Plus D Wafer 800 mg PO DAILY 11/05/17 12/05/17 11/19/17 History Atorvastatin Calcium [Lipitor] 40 mg PO DAILY #30 tablet 11/06/17 12/05/1711/19 Rx Pantoprazole [Protonix TAB] 40 mg PO QDAY #30 tablet 11/20/17 12/05/17 Unknown Rx oxyCODONE /ACETAMINOPHEN [Percocet 1 tab PO QHS PRN #5 tablet 11/20/17 12/05/17 Unknown Rx 5/325 mg] Levofloxacin [Levaquin TAB] 250 mg PO Q48HR #2 tablet 11/26/17 12/05/17 Unknown Rx traMADol [Ultram] 50 mg PO Q6HR PRN #10 tablet 12/06/17 Unknown Rx HYDROcodone/APAP 5-325 [[place] 1 each PO Q6HR PRN #14 tablet 12/14/17 Unknown Rx 5/325] Ondansetron [Zofran Odt] 4 mg PO Q8HR PRN #20 tab.rapdis 12/14/17 Unknown Rx Active Meds: Active Medications Sodium Chloride (Nacl 0.9%) 100 mls @ 999 mls/hr IV JOAN PRN PRN Reason: Hypotension Review of Systems Constitutional: no weight loss, no weight gain, no fever, no chills Ears, nose, mouth and throat: no ear pain, no ear discharge, no tinnitis, no nose pain, no nasal congestion, no nasal discharge Cardiovascular: chest pain, no palpitations, no lightheadedness, no shortness of breath Respiratory: no cough, no cough with sputum, no excessive sputum, no hemoptysis Gastrointestinal: no nausea, no vomiting, no diarrhea Genitourinary Female: no pelvic pain, no flank pain, no menorrhagia, no dysuria , no urinary frequency, no urgency Rectal: no pain, no incontinence, no bleeding Musculoskeletal: no neck stiffness, no neck pain, no shooting arm pain, no arm numbness/tingling, no low back pain Integumentary: no rash, no pruritis, no redness, no sores Neurological: no head injury, no transient paralysis, no paralysis, no weakness , no parathesias, no numbness, no tingling, no seizures, no syncope Psychiatric: no anxiety, no memory loss, no change in sleep habits, no sleep disturbances, no insomnia, no hypersomnia Endocrine: no cold intolerance, no heat intolerance, no polyphagia, no excessive thirst, no polydipsia, no polyuria, no nocturia Hematologic/Lymphatic: no easy bruising, no easy bleeding, no lymphadenopathy, no lymphedema Allergic/Immunologic: no urticaria, no allergic rhinitis, no wheezing, no persistent infections, no anaphylaxis, no angioedema Exam - Constitutional Vitals: Temp Pulse Resp BP Pulse Ox 98.9 F 95 H 22 163/71 96 12/21/17 11:46 12/21/17 11:46 12/21/17 11:46 12/21/17 11:46 12/21/17 11:46 General appearance: Present: mild distress, disheveled - EENT Eyes: Present: PERRL ENT: hearing intact, clear oral mucosa - Neck Neck: Present: supple, normal ROM - Respiratory Respiratory effort: normal Respiratory: bilateral: CTA - Cardiovascular Heart Sounds: Present: S1 & S2. Absent: rub, click - Extremities Extremities: pulses symmetrical, No edema Peripheral Pulses: within normal limits - Abdominal General gastrointestinal: Present: soft, non-tender, non-distended, normal bowel sounds Female genitourinary: Present: normal - Integumentary Integumentary: Present: clear, warm, dry - Musculoskeletal Musculoskeletal: gait normal, strength equal bilaterally - Psychiatric Psychiatric: appropriate mood/affect, intact judgment & insight - Neurologic Neurologic: CNII-XII intact, moves all extremities Results - Labs CBC & Chem 7: 12/21/17 12:45 12/21/17 12:42 Labs: Abnormal lab results 12/21/17 12/21/17 12/21/17 Range/Units 12:42 12:45 14:33 RBC 2.57 L (3.65-5.03) M/mm3 Hgb 7.4 L (10.1-14.3) gm/dl Hct 22.5 L (30.3-42.9) % RDW 24.5 H (13.2-15.2) % [place] % (Auto) 13.7 H (0.0-7.3) % Lymph # 1.1 L (1.2-5.4) K/mm3 Chloride 91.4 L (98-107) mmol/L BUN 94 H (7-17) mg/dL Creatinine 12.2 H (0.7-1.2) mg/dL Troponin T 0.459 H* D 0.483 H* (0.00-0.029) ng/mL 12/21/17 Range/Units 17:32 RBC (3.65-5.03) M/mm3 Hgb (10.1-14.3) gm/dl Hct (30.3-42.9) % RDW (13.2-15.2) % [place] % (Auto) (0.0-7.3) % Lymph # (1.2-5.4) K/mm3 Chloride (98-107) mmol/L BUN (7-17) mg/dL Creatinine (0.7-1.2) mg/dL Troponin T 0.505 H* (0.00-0.029) ng/mL Assessment and Plan - Patient Problems (1) CHF (congestive heart failure) Current Visit: No Status: Acute Qualifiers: Heart failure type: systolic Heart failure chronicity: acute Qualified Code(s): I50.21 - Acute systolic (congestive) heart failure Plan to address problem: Fluid restriction, strict I/O, telemetry monitoring, cardiology consulted, pain control, cardiac enzymes, monitor uop q shift to ensure negative fluid balance, dialysis prn (2) ESRD (end stage renal disease) on dialysis Current Visit: Yes Status: Chronic Plan to address problem: Nephrology consulted for dialysis, monitor uop q shift, (3) Diabetes Current Visit: Yes Status: Acute Plan to address problem: ADA diet,insulin, accu check (4) HTN (hypertension) Current Visit: Yes Status: Acute Qualifiers: Hypertension type: essential hypertension Qualified Code(s): I10 - Essential (primary) hypertension Plan to address problem: monitor bp q shift, continue medical management (5) Acute chest pain Current Visit: No Status: Acute Plan to address problem: Pain control, telemetry, cardiology consulted, cardiac enzymes, bnp (6) GERD (gastroesophageal reflux disease) Current Visit: Yes Status: Acute Plan to address problem: PPI therapy, supportive care (7) DVT prophylaxis Current Visit: No Status: Acute
[2017-12-21] MEDS ORDERED: NITROSTAT SL PRN (18:53)
[2017-12-21] MEDS ORDERED: TYLENOL PO ONE (18:53)
[2017-12-21] MEDS ORDERED: BABY ASPIRIN PO ONE (18:53)
[2017-12-21] MEDS ORDERED: TYLENOL PO PRN (18:59)
[2017-12-21] MEDS ORDERED: SODIUM CHLORIDE FLUSH SYRINGE 10 ML IV PRN (18:59)
[2017-12-21] MEDS ORDERED: ZOFRAN IV PRN (18:59)
[2017-12-21] MEDS ORDERED: PROVENTIL IH PRN (18:59)
--- NOTE | 2017-12-21 19:32 | Emergency Department Report ---
ED Chest Pain HPI - General Chief Complaint: Chest Pain Stated Complaint: CHEST PAIN Time Seen by Provider: 12/21/17 18:19 Source: EMS Mode of arrival: Wheelchair Limitations: No Limitations - History of Present Illness MD Complaint: chest pain -: Sudden, days(s) Onset: during rest Severity: severe Severity scale (0 -10): 10 Quality: tightness Consistency: constant Improves With: nothing Worsens With: nothing - Related Data Home Medications Medication Instructions Recorded Confirmed Last Taken Sennosides [Senna Lax] 8.6 mg PO DAILY PRN 09/27/17 12/05/17 11/19/17 ISOSORBIDE MONOnitrate [Imdur ER] 30 mg PO QDAY 10/14/17 12/05/17 11/19/17 Dialyvite 800 Plus D Wafer 800 mg PO DAILY 11/05/17 12/05/17 11/19/17 Previous Rx's Medication Instructions Recorded Last Taken Type Carvedilol [Coreg] 12.5 mg PO BID #60 tablet 06/27/17 11/19/17 Rx Clopidogrel [Plavix] 75 mg PO QDAY #30 tablet 06/27/17 11/19/17 Rx Dicyclomine [Bentyl] 10 mg PO TID PRN #30 capsule 09/13/17 11/19/17 Rx Atorvastatin Calcium [Lipitor] 40 mg PO DAILY #30 tablet 11/06/17 11/19/17 Rx Pantoprazole [Protonix TAB] 40 mg PO QDAY #30 tablet 11/20/17 Unknown Rx oxyCODONE /ACETAMINOPHEN [Percocet 1 tab PO QHS PRN #5 tablet 11/20/17 Unknown Rx 5/325 mg] Levofloxacin [Levaquin TAB] 250 mg PO Q48HR #2 tablet 11/26/17 Unknown Rx traMADol [Ultram] 50 mg PO Q6HR PRN #10 tablet 12/06/17 Unknown Rx HYDROcodone/APAP 5-325 [Camilla 1 each PO Q6HR PRN #14 tablet 12/14/17 Unknown Rx 5/325] Ondansetron [Zofran Odt] 4 mg PO Q8HR PRN #20 tab.rapdis 12/14/17 Unknown Rx Allergies Allergy/AdvReac Type Severity Reaction Status Date / Time No Known Allergies Allergy Verified 10/21/17 05:14 Heart Score - HEART Score History: Slightly suspicious EKG: Normal Age: > 65 Risk factors: > 3 risk factors or hx of atherosclerotic disease Troponin: 1-3x normal limit HEART Score: 5 ED Review of Systems ROS: Stated complaint: CHEST PAIN Other details as noted in HPI Comment: All other systems reviewed and negative Respiratory: denies: cough Cardiovascular: chest pain Gastrointestinal: abdominal pain ED Past Medical Hx - Past Medical History Hx Hypertension: Yes (1966) Hx CVA: Yes (x 2) Hx Heart Attack/AMI: Yes Hx Congestive Heart Failure: Yes Hx Diabetes: No Hx Deep Vein Thrombosis: No Hx GERD: No Hx Liver Disease: No Hx Renal Disease: Yes (Dialysis MWF) Hx Sickle Cell Disease: No Hx Arthritis: Yes Hx Headaches / Migraines: No Hx Seizures: No Hx Kidney Stones: No Hx Asthma: No Hx COPD: No Hx Tuberculosis: No Hx Dementia: No Hx HIV: No Additional medical history: enlarged heart, gout, [facility] CORONARY ANGIOGRAPHY [place] 08/06/2017-NONOBSTRUCTING HEART PER DR GIDEON BENOIT, dialysis - Surgical History Hx Coronary Stent: No Hx Open Heart Surgery: No Hx Pacemaker: No Hx Internal Defibrillator: No Hx Cholecystectomy: No Hx Appendectomy: No Hx Breast Surgery: No Additional Surgical History: tubal ligation, vas cath. LUE fistula. cardiac workup includes a stress test on 12/21/2016 that was unremarkable. Patient status post PCI of RCA with subsequent subacute thrombus of the proximal RCA stent and angioplasty with resolution of thrombosis on November 2016. AICD placement Aug 2017. PCI 03/22/17 of RCA. 05/01/17 neg Lexiscan stress - Social History Smoking Status: Unknown if ever smoked Substance Use Type: None - Medications Home Medications: Home Medications Medication Instructions Recorded Confirmed Last Taken Type Carvedilol [Coreg] 12.5 mg PO BID #60 tablet 06/27/17 12/05/17 11/19/17 Rx Clopidogrel [Plavix] 75 mg PO QDAY #30 tablet 06/27/17 12/05/17 11/19/17 Rx Dicyclomine [Bentyl] 10 mg PO TID PRN #30 capsule 09/13/17 12/05/17 11/19/17 Rx Sennosides [Senna Lax] 8.6 mg PO DAILY PRN 09/27/17 12/05/17 11/19/17 History ISOSORBIDE MONOnitrate [Imdur ER] 30 mg PO QDAY 10/14/17 12/05/17 11/19/17 History Dialyvite 800 Plus D Wafer 800 mg PO DAILY 11/05/17 12/05/17 11/19/17 History Atorvastatin Calcium [Lipitor] 40 mg PO DAILY #30 tablet 11/06/17 12/05/1711/19 Rx Pantoprazole [Protonix TAB] 40 mg PO QDAY #30 tablet 11/20/17 12/05/17 Unknown Rx oxyCODONE /ACETAMINOPHEN [Percocet 1 tab PO QHS PRN #5 tablet 11/20/17 12/05/17 Unknown Rx 5/325 mg] Levofloxacin [Levaquin TAB] 250 mg PO Q48HR #2 tablet 11/26/17 12/05/17 Unknown Rx traMADol [Ultram] 50 mg PO Q6HR PRN #10 tablet 12/06/17 Unknown Rx HYDROcodone/APAP 5-325 [[place] 1 each PO Q6HR PRN #14 tablet 12/14/17 Unknown Rx 5/325] Ondansetron [Zofran Odt] 4 mg PO Q8HR PRN #20 tab.rapdis 12/14/17 Unknown Rx ED Physical Exam - General Limitations: No Limitations General appearance: alert, in no apparent distress - Head Head exam: Present: atraumatic, normocephalic - Eye Eye exam: Present: normal appearance - ENT ENT exam: Present: mucous membranes moist - Neck Neck exam: Present: normal inspection - Respiratory Respiratory exam: Present: normal lung sounds bilaterally. Absent: respiratory distress, wheezes, rales, rhonchi - Cardiovascular Cardiovascular Exam: Present: regular rate, normal rhythm. Absent: systolic murmur, diastolic murmur, rubs, gallop - GI/Abdominal GI/Abdominal exam: Present: soft, normal bowel sounds. Absent: distended, tenderness, guarding, rebound - Extremities Exam Extremities exam: Present: normal inspection - Back Exam Back exam: Present: normal inspection - Neurological Exam Neurological exam: Present: alert, oriented X3 - Psychiatric Psychiatric exam: Present: normal affect, normal mood - Skin Skin exam: Present: warm, dry, intact, normal color. Absent: rash ED Course Vital Signs 12/21/17 11:46 Temperature 98.9 F Pulse Rate 95 H Respiratory 22 Rate Blood Pressure 163/71 [Right] O2 Sat by Pulse 96 Oximetry MONE score - Mone Score Age > 65: (1) Yes Aspirin use within the Past 7 Days: (1) Yes 3 or more CAD Risk Factors: (1) Yes 2 or more Angina events in past 24 hrs: (0) No Known CAD with more than 50% Stenosis: (1) Yes Elevated Cardiac Markers: (1) Yes ST Deviation Greater than 0.5mm: (0) No MONE Score: 5 ED Medical Decision Making - Lab Data Result diagrams: 12/21/17 12:45 12/21/17 12:42 - EKG Data 12/21/17 19:29 Normal sinus rhythm rate of 90 normal axis normal QT interval positive LVH and nonspecific T-wave pattern unchanged from prior EKG. - Medical Decision Making Ms. Molina is 67-year-old female with history of ESRD on HD and coronary artery disease. She's had several recent cardiac evaluations. She's had innumerable ED encounters almost every other day here at [facility]. With elevated troponin above her baseline and upward trend, Dr. Cheng hospitalist will admit the patient for observation. No other obvious acute medical issues at this time. Ms. Molina refused aspirin, nitroglycerin. I offered her tylenol for chronic back which she also refused. Critical care attestation.: If time is entered above; I have spent that time in minutes in the direct care of this critically ill patient, excluding procedure time. ED Disposition Clinical Impression: Chest pain, ESRD (end stage renal disease) on dialysis Disposition: OP ADMIT IP TO THIS HOSP Is pt being admited?: Yes Does the pt Need Aspirin: No Time of Disposition: 18:30
[2017-12-21] MEDS: SODIUM CHLORIDE FLUSH SYRINGE 10 ML IV SCH (23:43)
[2017-12-22] MEDS ORDERED: ZOFRAN ODT PO PRN (06:21)
[2017-12-22] MEDS ORDERED: BENTYL PO PRN (06:21)
[2017-12-22] MEDS ORDERED: SENOKOT PO PRN (06:21)
[2017-12-22] MEDS: COREG PO SCH ×2 (09:55→21:44)
[2017-12-22] MEDS: PLAVIX PO SCH (09:56)
[2017-12-22] MEDS: PROTONIX PO SCH (09:56)
[2017-12-22] MEDS: SODIUM CHLORIDE FLUSH SYRINGE 10 ML IV SCH ×2 (09:57→21:44)
[2017-12-22] MEDS ORDERED: IMDUR PO SCH (10:00)
[2017-12-22] MEDS ORDERED: DIALYVITE PO SCH (10:00)
[2017-12-22] MEDS ORDERED: [UNRECOGNIZED DRUG - OTHER] PO SCH (10:00)
[2017-12-22] MEDS: ULTRAM PO PRN (10:04)
--- NOTE | 2017-12-22 12:54 | Consultation ---
History of Present Illness Consult date: 12/22/17 Requesting physician: JODI CASTILLO Consult reason: chest pain History of present illness: The patient is followed at our office by Dr. Quinton Ford. She is frequently admitted to [facility]. She has a history of CAD, status post PCI and ischemic cardiomyopathy. Her last coronary angiography was performed in July 2017 which revealed nonobstructive CAD with an ejection fraction of 25%. Echocardiogram in July 2017 revealed an ejection fraction of 20-25% with moderate to severe tricuspid and moderate mitral regurgitation. RVSP was 63 mmHg. She also has chronic anemia which has apparently worsened since September 2017. She presented this time with a 3-week history of recurrent precordial chest pain and abdominal pain. She claims that she has experienced nausea and vomiting a few days ago. Past History Past Medical History: CAD, ESRD, hypertension, other (severe pulmonary hypertension, ischemic cardiomyopathy) Past Surgical History: appendectomy, PTCA, Other (tubal ligation, creation of A- V fistula for dialysis, ICD implantation) Social history: smoking. denies: alcohol abuse Family history: CAD Medications and Allergies Allergies Allergy/AdvReac Type Severity Reaction Status Date / Time No Known Allergies Allergy Verified 10/21/17 05:14 Home Medications Medication Instructions Recorded Confirmed Last Taken Type Carvedilol [Coreg] 12.5 mg PO BID #60 tablet 06/27/17 12/05/17 11/19/17 Rx Clopidogrel [Plavix] 75 mg PO QDAY #30 tablet 06/27/17 12/05/17 11/19/17 Rx Dicyclomine [Bentyl] 10 mg PO TID PRN #30 capsule 09/13/17 12/05/17 11/19/17 Rx Sennosides [Senna Lax] 8.6 mg PO DAILY PRN 09/27/17 12/05/17 11/19/17 History ISOSORBIDE MONOnitrate [Imdur ER] 30 mg PO QDAY 10/14/17 12/05/17 11/19/17 History Dialyvite 800 Plus D Wafer 800 mg PO DAILY 11/05/17 12/05/17 11/19/17 History Atorvastatin Calcium [Lipitor] 40 mg PO DAILY #30 tablet 11/06/17 12/05/1711/19 Rx Pantoprazole [Protonix TAB] 40 mg PO QDAY #30 tablet 11/20/17 12/05/17 Unknown Rx oxyCODONE /ACETAMINOPHEN [Percocet 1 tab PO QHS PRN #5 tablet 11/20/17 12/05/17 Unknown Rx 5/325 mg] Levofloxacin [Levaquin TAB] 250 mg PO Q48HR #2 tablet 11/26/17 12/05/17 Unknown Rx traMADol [Ultram] 50 mg PO Q6HR PRN #10 tablet 12/06/17 Unknown Rx HYDROcodone/APAP 5-325 [[place] 1 each PO Q6HR PRN #14 tablet 12/14/17 Unknown Rx 5/325] Ondansetron [Zofran Odt] 4 mg PO Q8HR PRN #20 tab.rapdis 12/14/17 Unknown Rx Active Meds: Active Medications Acetaminophen (Tylenol) 650 mg PO Q4H PRN PRN Reason: Pain MILD(1-3)/Fever >100.5/SANCHEZ Acetaminophen/Hydrocodone Bitart ([place] 5/325) 1 each PO Q6H PRN PRN Reason: Pain Albuterol (Proventil) 2.5 mg IH Q4HRT PRN PRN Reason: Shortness Of Breath Atorvastatin Calcium (Lipitor) 40 mg PO DAILY [facility] Last Admin: 12/22/17 09:57 Dose: 40 mg Carvedilol (Coreg) 12.5 mg PO BID [facility] Last Admin: 12/22/17 09:55 Dose: 12.5 mg Clopidogrel Bisulfate (Plavix) 75 mg PO QDAY [facility] Last Admin: 12/22/17 09:56 Dose: 75 mg Dicyclomine HCl (Bentyl) 10 mg PO TID PRN PRN Reason: Pain Sodium Chloride (Nacl 0.9%) 100 mls @ 999 mls/hr IV JOAN PRN PRN Reason: Hypotension Isosorbide Mononitrate (Imdur) 30 mg PO QDAY [facility] Last Admin: 12/22/17 09:55 Dose: 30 mg Miscellaneous Medication (Dialyvite 800 Plus D Wafer) 800 mg PO DAILY [facility] Nitroglycerin (Nitrostat) 0.4 mg SL .Q5MIN PRN PRN Reason: Chest Pain Ondansetron HCl (Zofran) 4 mg IV Q8H PRN PRN Reason: Nausea And Vomiting Ondansetron HCl (Zofran Odt) 4 mg PO Q8H PRN PRN Reason: Nausea And Vomiting Pantoprazole Sodium (Protonix) 40 mg PO QDAY [facility] Last Admin: 12/22/17 09:56 Dose: 40 mg Senna (Senokot) 8.6 mg PO DAILY PRN PRN Reason: Constipation Sodium Chloride (Sodium Chloride Flush Syringe 10 Ml) 10 ml IV BID [facility] Last Admin: 12/22/17 09:57 Dose: 10 ml Sodium Chloride (Sodium Chloride Flush Syringe 10 Ml) 10 ml IV PRN PRN PRN Reason: LINE FLUSH Tramadol HCl (Ultram) 50 mg PO Q6H PRN PRN Reason: Pain Last Admin: 12/22/17 10:04 Dose: 50 mg Review of Systems Constitutional: no fever, no chills Ears, nose, mouth and throat: no ear pain, no ear discharge, no sore throat Cardiovascular: chest pain, no orthopnea, no palpitations, no lightheadedness Respiratory: no cough, no hemoptysis Gastrointestinal: abdominal pain, nausea, vomiting, no diarrhea Genitourinary Female: no dysuria, no urinary frequency Rectal: no pain, no bleeding Musculoskeletal: no neck stiffness, no neck pain, no myalgias Integumentary: no rash, no pruritis Neurological: no weakness, no parathesias, no headaches Endocrine: no cold intolerance, no heat intolerance Hematologic/Lymphatic: no easy bruising, no easy bleeding Allergic/Immunologic: no urticaria, no wheezing Physical Examination Vital Signs Last Vital Signs Temp 97.7 F 12/22/17 12:10 Pulse 86 12/22/17 12:10 Resp 16 12/22/17 12:10 BP 138/58 12/22/17 12:10 Pulse Ox 100 12/22/17 12:10 General appearance: no acute distress HEENT: Positive: EOMI, Normocephaly, Mucus Membranes Moist Neck: Positive: neck supple, trachea midline Cardiac: Positive: Reg Rate and Rhythm, S1/S2 Lungs: Positive: clear to auscultation Neuro: Positive: Grossly Intact Abdomen: Positive: Soft, Active Bowel Sounds, Tender (generalized) Skin: Positive: Clear, Rash Musculoskeletal: Normal Range of Motion Extremities: Absent: edema Results 12/21/17 12:45 12/21/17 12:42 Lipids 12/21/17 Range/Units 12:42 Triglycerides 56 (2-149) mg/dL Cholesterol 135 (50-199) mg/dL HDL Cholesterol 57 (40-59) mg/dL Cholesterol/HDL Ratio 2.36 % CBC 12/21/17 Range/Units 12:45 WBC 5.7 (4.5-11.0) K/mm3 RBC 2.57 L (3.65-5.03) M/mm3 Hgb 7.4 L (10.1-14.3) gm/dl Hct 22.5 L (30.3-42.9) % Plt Count 290 (140-440) K/mm3 Lymph # 1.1 L (1.2-5.4) K/mm3 [place] # 0.8 (0.0-0.8) K/mm3 Eos # 0.1 (0.0-0.4) K/mm3 Baso # 0.0 (0.0-0.1) K/mm3 Comprehensive Metabolic Panel 12/21/17 Range/Units 12:42 Sodium 139 (137-145) mmol/L Potassium 5.0 (3.6-5.0) mmol/L Chloride 91.4 L (98-107) mmol/L Carbon Dioxide 26 (22-30) mmol/L BUN 94 H (7-17) mg/dL Creatinine 12.2 H (0.7-1.2) mg/dL Glucose 88 (65-100) mg/dL Calcium 9.6 (8.4-10.2) mg/dL - Imaging and Cardiology EKG: image reviewed EKG interpretations - Telemetry EKG Rhythm: Sinus Rhythm - EKG Sinus rhythms and dysrhythmias: sinus rhythm Chamber hypertrophy or enlargement: left ventricular hypertro Repolarization changes or abnormalities: repolarization abn secondary to ventricular hypertrophy Assessment and Plan She appears to have type 2 NSTEMI in the setting of severe anemia and recent coronary angiography revealing nonobstructive disease. Will attempt to optimize anti-ischemic regimen. She is not a candidate for anticoagulation at this point in view of severe anemia of uncertain etiology. Anemia needs to be addressed. It seems the overwhelming symptom at this time is her abdominal pain which also warrants evaluation. - Patient Problems (1) Abdominal pain Current Visit: Yes Status: Acute Qualifiers: Abdominal location: generalized Qualified Code(s): R10.84 - Generalized abdominal pain (2) Chest pain Current Visit: Yes Status: Acute (3) Acute non-ST elevation myocardial infarction (NSTEMI) Current Visit: Yes Status: Acute (4) CAD (coronary artery disease) Current Visit: Yes Status: Chronic Qualifiers: Coronary Disease-Associated Artery/Lesion type: [place] artery [place] vs. transplanted heart: [place] heart (5) History of coronary artery stent placement Current Visit: Yes Status: Chronic (6) Ischemic cardiomyopathy Current Visit: Yes Status: Chronic (7) AICD (automatic cardioverter/defibrillator) present Current Visit: Yes Status: Chronic (8) Pulmonary hypertension Current Visit: Yes Status: Chronic (9) Anemia Current Visit: Yes Status: Acute (10) ESRD (end stage renal disease) on dialysis Current Visit: Yes Status: Chronic (11) HTN (hypertension) Current Visit: Yes Status: Chronic Qualifiers: Hypertension type: essential hypertension Qualified Code(s): I10 - Essential (primary) hypertension
[2017-12-22] MEDS: NITRO-BID 2% TP SCH (14:07)
[2017-12-22] MEDS: IMDUR PO SCH (14:07)
--- NOTE | 2017-12-22 15:34 | Progress Note ---
Assessment and Plan Assessment and plan: 67-year-old woman with end-stage renal disease who presents with abdominal pain Abdominal pain Could be a chest pain equivalent Cardiology input appreciated, troponin stable, continue medical management given history of recent colitis in September 2017, will obtain CT angiogram of the abdomen and pelvis to rule out ischemic colitis. Anemia of chronic disease transfuse one unit prbc CHF (congestive heart failure) Fluid restriction, strict I/O, telemetry monitoring, cardiology consulted, pain control, cardiac enzymes, monitor uop q shift to ensure negative fluid balance, dialysis prn ) ESRD (end stage renal disease) on dialysis, with hyperkalemia Current Visit: Yes Status: Chronic Plan to address problem: Nephrology consulted for dialysis, monitor uop q shift, ) Diabetes Current Visit: Yes Status: Acute Plan to address problem: ADA diet,insulin, accu check HTN (hypertension) Current Visit: Yes Status: Acute Qualifiers: Hypertension type: essential hypertension Qualified Code(s): I10 - Essential (primary) hypertension Plan to address problem: monitor bp q shift, continue medical management ) GERD (gastroesophageal reflux disease) Current Visit: Yes Status: Acute Plan to address problem: PPI therapy, supportive care ) DVT prophylaxis Current Visit: No Status: Acute History Interval history: Review of systems Constitutional: No fevers, no malaise, no joint pains CVS: No chest pain, no orthopnea, no dyspnea on exertion, no pedal edema GI: No abdominal pain, no diarrhea, no vomiting, no constipation Respiratory: No shortness of breath, no wheezing, no coughing Hospitalist Physical - Physical exam Narrative exam: General.: Appears well, no distress, nontoxic HEENT: Moist mucous membranes, extraocular muscles intact, no lymphadenopathy Neck: supple Cardiac: S1-S2 heard Lungs: clear to auscultation bilaterally Abdomen: soft , nontender, nondistended, bowel sounds positive Extremities: no edema clubbing or cyanosis Skin: no rash or lesions Neurologic: no gross focal deficits Psych: appropriate behavior, appropriate mood, corporative, judgment intact. - Constitutional Vitals: Temp Pulse Resp BP Pulse Ox 97.7 F 86 16 138/58 100 12/22/17 12:10 12/22/17 14:07 12/22/17 12:10 12/22/17 14:07 12/22/17 12:10 General appearance: Present: no acute distress Results - Labs CBC & Chem 7: 12/24/17 09:49 12/25/17 10:14 Labs: Laboratory Last Values WBC 5.7 K/mm3 (4.5-11.0) 12/21/17 12:45 RBC 2.57 M/mm3 (3.65-5.03) L 12/21/17 12:45 Hgb 7.4 gm/dl (10.1-14.3) L 12/21/17 12:45 Hct 22.5 % (30.3-42.9) L 12/21/17 12:45 MCV 88 fl (79-97) 12/21/17 12:45 MCH 29 pg (28-32) 12/21/17 12:45 MCHC 33 % (30-34) 12/21/17 12:45 RDW 24.5 % (13.2-15.2) H 12/21/17 12:45 Plt Count 290 K/mm3 (140-440) 12/21/17 12:45 Lymph % (Auto) 18.8 % (13.4-35.0) 12/21/17 12:45 [place] % (Auto) 13.7 % (0.0-7.3) H 12/21/17 12:45 Eos % (Auto) 0.9 % (0.0-4.3) 12/21/17 12:45 Baso % (Auto) 0.4 % (0.0-1.8) 12/21/17 12:45 Lymph # 1.1 K/mm3 (1.2-5.4) L 12/21/17 12:45 [place] # 0.8 K/mm3 (0.0-0.8) 12/21/17 12:45 Eos # 0.1 K/mm3 (0.0-0.4) 12/21/17 12:45 Baso # 0.0 K/mm3 (0.0-0.1) 12/21/17 12:45 Seg Neutrophils % 66.2 % (40.0-70.0) 12/21/17 12:45 Seg Neutrophils # 3.8 K/mm3 (1.8-7.7) 12/21/17 12:45 Sodium 139 mmol/L (137-145) 12/21/17 12:42 Potassium 5.0 mmol/L (3.6-5.0) 12/21/17 12:42 Chloride 91.4 mmol/L (98-107) L 12/21/17 12:42 Carbon Dioxide 26 mmol/L (22-30) 12/21/17 12:42 Anion Gap 27 mmol/L 12/21/17 12:42 BUN 94 mg/dL (7-17) H 12/21/17 12:42 Creatinine 12.2 mg/dL (0.7-1.2) H 12/21/17 12:42 Estimated GFR 4 ml/min 12/21/17 12:42 BUN/Creatinine Ratio 8 % 12/21/17 12:42 Glucose 88 mg/dL (65-100) 12/21/17 12:42 Calcium 9.6 mg/dL (8.4-10.2) 12/21/17 12:42 Troponin T 0.918 ng/mL (0.00-0.029) H* D 12/22/17 14:47 Triglycerides 56 mg/dL (2-149) 12/21/17 12:42 Cholesterol 135 mg/dL (50-199) 12/21/17 12:42 LDL Cholesterol Direct 79 mg/dL (50-130) 12/21/17 12:42 HDL Cholesterol 57 mg/dL (40-59) 12/21/17 12:42 Cholesterol/HDL Ratio 2.36 % 12/21/17 12:42
[2017-12-22] MEDS ORDERED: NACL 0.9% 500 ML 500 ML IV ONE (16:00)
--- NOTE | 2017-12-22 19:14 | Progress Note ---
Assessment and Plan Assessment and plan: 67-year-old woman with end-stage renal disease who presents with abdominal pain Abdominal pain Could be a chest pain equivalent Cardiology input appreciated, troponin stable, continue medical management given history of recent colitis in September 2017, CT angiogram of the abdomen and pelvis to rule out ischemic colitis was done and was negative likely chronic abdominal pain due to gerd Anemia of chronic disease transfused one unit prbc CHF (congestive heart failure) Fluid restriction, strict I/O, telemetry monitoring, cardiology consulted, pain control, cardiac enzymes, monitor uop q shift to ensure negative fluid balance, dialysis prn ) ESRD (end stage renal disease) on dialysis, with hyperkalemia Current Visit: Yes Status: Chronic Plan to address problem: Nephrology consulted for dialysis, monitor uop q shift, ) Diabetes Current Visit: Yes Status: Acute Plan to address problem: ADA diet,insulin, accu check HTN (hypertension) Current Visit: Yes Status: Acute Qualifiers: Hypertension type: essential hypertension Qualified Code(s): I10 - Essential (primary) hypertension Plan to address problem: monitor bp q shift, continue medical management ) GERD (gastroesophageal reflux disease) Current Visit: Yes Status: Acute Plan to address problem: PPI therapy, supportive care ) DVT prophylaxis Current Visit: No Status: Acute History Interval history: Review of systems Constitutional: No fevers, no malaise, no joint pains CVS: No chest pain, no orthopnea, no dyspnea on exertion, no pedal edema GI: No abdominal pain, no diarrhea, no vomiting, no constipation Respiratory: No shortness of breath, no wheezing, no coughing Hospitalist Physical - Physical exam Narrative exam: General.: Appears well, no distress, nontoxic HEENT: Moist mucous membranes, extraocular muscles intact, no lymphadenopathy Neck: supple Cardiac: S1-S2 heard Lungs: clear to auscultation bilaterally Abdomen: soft , nontender, nondistended, bowel sounds positive Extremities: no edema clubbing or cyanosis Skin: no rash or lesions Neurologic: no gross focal deficits Psych: appropriate behavior, appropriate mood, corporative, judgment intact. - Constitutional Vitals: Temp Pulse Resp BP Pulse Ox 98.1 F 74 18 123/42 100 12/22/17 15:57 12/22/17 15:57 12/22/17 15:57 12/22/17 15:57 12/22/17 15:57 General appearance: Present: no acute distress Results - Labs CBC & Chem 7: 12/24/17 09:49 12/25/17 10:14 Labs: Laboratory Last Values WBC 5.7 K/mm3 (4.5-11.0) 12/21/17 12:45 RBC 2.57 M/mm3 (3.65-5.03) L 12/21/17 12:45 Hgb 7.4 gm/dl (10.1-14.3) L 12/21/17 12:45 Hct 22.5 % (30.3-42.9) L 12/21/17 12:45 MCV 88 fl (79-97) 12/21/17 12:45 MCH 29 pg (28-32) 12/21/17 12:45 MCHC 33 % (30-34) 12/21/17 12:45 RDW 24.5 % (13.2-15.2) H 12/21/17 12:45 Plt Count 290 K/mm3 (140-440) 12/21/17 12:45 Lymph % (Auto) 18.8 % (13.4-35.0) 12/21/17 12:45 [place] % (Auto) 13.7 % (0.0-7.3) H 12/21/17 12:45 Eos % (Auto) 0.9 % (0.0-4.3) 12/21/17 12:45 Baso % (Auto) 0.4 % (0.0-1.8) 12/21/17 12:45 Lymph # 1.1 K/mm3 (1.2-5.4) L 12/21/17 12:45 [place] # 0.8 K/mm3 (0.0-0.8) 12/21/17 12:45 Eos # 0.1 K/mm3 (0.0-0.4) 12/21/17 12:45 Baso # 0.0 K/mm3 (0.0-0.1) 12/21/17 12:45 Seg Neutrophils % 66.2 % (40.0-70.0) 12/21/17 12:45 Seg Neutrophils # 3.8 K/mm3 (1.8-7.7) 12/21/17 12:45 Sodium 139 mmol/L (137-145) 12/21/17 12:42 Potassium 5.0 mmol/L (3.6-5.0) 12/21/17 12:42 Chloride 91.4 mmol/L (98-107) L 12/21/17 12:42 Carbon Dioxide 26 mmol/L (22-30) 12/21/17 12:42 Anion Gap 27 mmol/L 12/21/17 12:42 BUN 94 mg/dL (7-17) H 12/21/17 12:42 Creatinine 12.2 mg/dL (0.7-1.2) H 12/21/17 12:42 Estimated GFR 4 ml/min 12/21/17 12:42 BUN/Creatinine Ratio 8 % 12/21/17 12:42 Glucose 88 mg/dL (65-100) 12/21/17 12:42 Calcium 9.6 mg/dL (8.4-10.2) 12/21/17 12:42 Troponin T 0.918 ng/mL (0.00-0.029) H* D 12/22/17 14:47 NT-Pro-B Natriuret Pep > 88586 pg/mL (0-900) H 12/22/17 12:15 Triglycerides 56 mg/dL (2-149) 12/21/17 12:42 Cholesterol 135 mg/dL (50-199) 12/21/17 12:42 LDL Cholesterol Direct 79 mg/dL (50-130) 12/21/17 12:42 HDL Cholesterol 57 mg/dL (40-59) 12/21/17 12:42 Cholesterol/HDL Ratio 2.36 % 12/21/17 12:42
--- NOTE | 2017-12-22 20:26 | Consultation ---
History of Present Illness - Reason for Consult Consult date: 12/22/17 end stage renal disease Requesting physician: DELGADO GOMEZ - History of Present Illness 67 year old lady with a history of hypertension, congestive heart failure, diabetes mellitus and incision and disease on hemodialysis on a Sunday, Sunday and Sunday schedule. Patient has had numerous hospitalizations at this institution with uncontrolled hypertension, recurrent chest pain and also hyperkalemia secondary to missed dialysis. She has had extensive cardiac AND unfortunately she does have coronary artery disease. She presents to the hospital on account of chest pain which started on dialysis yesterday. it was at rest. she describes it as a tightness which was constant severe 06/26 with no known aggravating or relieving factors. She admits to nausea and vomiting. She also had dizziness and palpitations but denies any diaphoresis. she gets dizzy on standing up. On account of these symptoms, she was sent to the hospital for further evaluation. Patient was treated in the emergency room with supplemental oxygen, nebulizer therapy, NIPPV. Our service was also consulted and stat dialysis was ordered and done yesterday. She feels better now Past History Past Medical History: CAD, diabetes, ESRD, heart failure, hypertension, hyperlipidemia, other (severe pulmonary hypertension, ischemic cardiomyopathy) Past Surgical History: appendectomy, PTCA, Other (tubal ligation, creation of A- V fistula for dialysis, ICD implantation) Social history: single, lives with family (her son is now living with her due to her frequent hospitalizations and unstable status), smoking. denies: alcohol abuse, prescription drug abuse, IV drug use Family history: CAD Medications and Allergies Allergies Allergy/AdvReac Type Severity Reaction Status Date / Time No Known Allergies Allergy Verified 10/21/17 05:14 Home Medications Medication Instructions Recorded Confirmed Last Taken Type Carvedilol [Coreg] 12.5 mg PO BID #60 tablet 06/27/17 12/05/17 11/19/17 Rx Clopidogrel [Plavix] 75 mg PO QDAY #30 tablet 06/27/17 12/05/17 11/19/17 Rx Dicyclomine [Bentyl] 10 mg PO TID PRN #30 capsule 09/13/17 12/05/17 11/19/17 Rx Sennosides [Senna Lax] 8.6 mg PO DAILY PRN 09/27/17 12/05/1718 History ISOSORBIDE MONOnitrate [Imdur ER] 30 mg PO QDAY 10/14/17 12/05/17 11/19/17 History Dialyvite 800 Plus D Wafer 800 mg PO DAILY 11/05/17 12/05/17 11/19/17 History Atorvastatin Calcium [Lipitor] 40 mg PO DAILY #30 tablet 11/06/17 12/05/1711/19 Rx Pantoprazole [Protonix TAB] 40 mg PO QDAY #30 tablet 11/20/17 12/05/17 Unknown Rx oxyCODONE /ACETAMINOPHEN [Percocet 1 tab PO QHS PRN #5 tablet 11/20/17 12/05/17 Unknown Rx 5/325 mg] Levofloxacin [Levaquin TAB] 250 mg PO Q48HR #2 tablet 11/26/17 12/05/17 Unknown Rx traMADol [Ultram] 50 mg PO Q6HR PRN #10 tablet 12/06/17 Unknown Rx HYDROcodone/APAP 5-325 [[place] 1 each PO Q6HR PRN #14 tablet 12/14/17 Unknown Rx 5/325] Ondansetron [Zofran Odt] 4 mg PO Q8HR PRN #20 tab.rapdis 12/14/17 Unknown Rx Active Meds: Active Medications Acetaminophen (Tylenol) 650 mg PO Q4H PRN PRN Reason: Pain MILD(1-3)/Fever >100.5/SANCHEZ Acetaminophen/Hydrocodone Bitart ([place] 5/325) 1 each PO Q6H PRN PRN Reason: Pain Albuterol (Proventil) 2.5 mg IH Q4HRT PRN PRN Reason: Shortness Of Breath Atorvastatin Calcium (Lipitor) 40 mg PO DAILY [facility] Last Admin: 12/22/17 09:57 Dose: 40 mg Carvedilol (Coreg) 12.5 mg PO BID [facility] Last Admin: 12/22/17 09:55 Dose: 12.5 mg Clopidogrel Bisulfate (Plavix) 75 mg PO QDAY [facility] Last Admin: 12/22/17 09:56 Dose: 75 mg Dicyclomine HCl (Bentyl) 10 mg PO TID PRN PRN Reason: Pain Sodium Chloride (Nacl 0.9%) 100 mls @ 999 mls/hr IV JOAN PRN PRN Reason: Hypotension Isosorbide Mononitrate (Imdur) 60 mg PO QDAY [facility] Last Admin: 12/22/17 14:07 Dose: 60 mg Miscellaneous Medication (Dialyvite 800 Plus D Wafer) 800 mg PO DAILY [facility] Nitroglycerin (Nitrostat) 0.4 mg SL .Q5MIN PRN PRN Reason: Chest Pain Nitroglycerin (Nitro-Bid 2%) 1 inch TP QIDNTG [facility]; Protocol Last Admin: 12/22/17 14:07 Dose: 1 inch Ondansetron HCl (Zofran) 4 mg IV Q8H PRN PRN Reason: Nausea And Vomiting Ondansetron HCl (Zofran Odt) 4 mg PO Q8H PRN PRN Reason: Nausea And Vomiting Pantoprazole Sodium (Protonix) 40 mg PO QDAY [facility] Last Admin: 12/22/17 09:56 Dose: 40 mg Senna (Senokot) 8.6 mg PO DAILY PRN PRN Reason: Constipation Sodium Chloride (Sodium Chloride Flush Syringe 10 Ml) 10 ml IV BID [facility] Last Admin: 12/22/17 09:57 Dose: 10 ml Sodium Chloride (Sodium Chloride Flush Syringe 10 Ml) 10 ml IV PRN PRN PRN Reason: LINE FLUSH Tramadol HCl (Ultram) 50 mg PO Q6H PRN PRN Reason: Pain Last Admin: 12/22/17 10:04 Dose: 50 mg Review of Systems All systems: negative (Constitutional: no fever but she admits to chills. No anorexia or weight loss. HEENT: No sore throat or sinus drainage no hearing or vision impairment . Cardiovascular: See history of present illness. No lower extremity swelling. Respiratory: She admits to nonproductive cough. No Shortness of breath, hemoptysis or wheezing. Gastrointestinal: She admits to nausea or vomiting. She also had 2 days of watery diarrhea. Not bloody or mucoid. No Abdominal pain, hematemesis or melena. Genitourinary: She makes just a few drops of urine. No frequency urgency dysuria or hematuria. hematologic: No abnormal bleeding or bruising. Integumentary: no pruritus or rash. Neurological: She admits to headache no focal weakness or numbness, no syncope or seizures. Endocrine: She admits to cold intolerance. No heat intolerance. Musculoskeletal: Admits to joint pain and stiffness in the legs and shoulders. Psychiatry: no anxiety or depression) Exam - Vital Signs Vital signs: Vital Signs Temp Pulse Resp BP Pulse Ox 98.9 F 95 H 22 163/71 96 12/21/17 11:46 12/21/17 11:46 12/21/17 11:46 12/21/17 11:46 12/21/17 11:46 - Physical Exam Narrative exam: Elderly -Welsh female lying in bed in no acute distress HEENT: NCAT, pink oral mucous membrane Neck: Supple, no venous distention CVS: S1S2 RRR with no murmur, rub or gallop Chest: Clear to auscultation Abdomen: Protuberant, soft, there is mild tenderness in epigastrium, left upper quadrant, no organomegaly, bowel sounds are present Extremities: No edema, no clubbing Skin warm and dry, no rash Neuro: Awake, alert no focal deficits Results - Lab Results 12/21/17 12:45 12/21/17 12:42 Most recent lab results Calcium 9.6 mg/dL (8.4-10.2) 12/21/17 12:42 Assessment and Plan - Patient Problems (1) Chest pain at rest Current Visit: No Status: Acute Plan to address problem: Cardiology has been consulted. (2) Chronic systolic heart failure Current Visit: No Status: Acute Plan to address problem: Fluid removal on dialysis. Continue beta nikolas. (3) Type 2 diabetes mellitus with diabetic nephropathy Current Visit: Yes Status: Acute Plan to address problem: Blood sugar management by primary attending (4) Hypertensive chronic kidney disease with stage 5 chronic kidney disease or end stage renal disease Current Visit: No Status: Acute Plan to address problem: Follow blood pressure on current medications. (5) ESRD (end stage renal disease) on dialysis Current Visit: No Status: Chronic Plan to address problem: Hemodialysis on a Sunday, Sunday and Sunday schedule. (6) Anemia in end-stage renal disease Current Visit: No Status: Acute Plan to address problem: Give Erythropoetin on dialysis. Stress importance of adhering to her dialysis schedule so she can also receive erythropoiesis stimulating agent regularly.
--- NOTE | 2017-12-22 20:31 | Cat Scan Report ---
FINAL REPORT PROCEDURE: CT ANGIO ABDOMEN PELVIS TECHNIQUE: Computerized axial tomographic angiography of the abdomen and pelvis was performed after the IV injection of iodinated nonionic contrast. The image data was postprocessed using 2-dimensional multiplanar reformatted (MPR) and 3-dimensional (MIP and/or volume rendered) techniques. HISTORY: abdominal pain COMPARISON: No prior studies are available for comparison. FINDINGS: The heart is enlarged. There is a tiny pericardial effusion. There is atelectasis at the left lung base. Abdominal aorta: There is calcified plaque in the abdominal aorta. There is no aneurysm or dissection, thrombosis or stenosis. Celiac artery: There is calcified plaque. There is no significant stenosis. Superior mesenteric artery: There is calcified plaque. There is no significant stenosis. Left renal artery: There is significant calcified plaque and stenosis of the origin of the left renal artery. Right renal artery: There is calcified plaque. There is no significant stenosis. Inferior mesenteric artery: There is calcified plaque. There is no significant stenosis. Common iliacs: There is calcified plaque. There is no significant stenosis. External iliacs: There is calcified plaque. There is no significant stenosis. Internal iliacs: There is calcified plaque. There is no significant stenosis. Hypervascular masses: Normal. Abdominal and pelvic viscera: The liver, gallbladder, pancreas and spleen are unremarkable. The kidneys are atrophic. There is no acute bowel abnormality. The uterus is intact. There is no ascites or free air, abscess or adenopathy. Other: None. IMPRESSION: There is calcified plaque in the abdominal aorta. There is no aortic aneurysm or dissection. The mesenteric branches are patent. However, there is significant plaque at the origin of the left renal artery causing significant stenosis.
[2017-12-23] MEDS: ULTRAM PO PRN ×3 (01:42→17:31)
[2017-12-23] MEDS ORDERED: NACL 0.9% 500 ML 500 ML IV ONE (03:00)
[2017-12-23] MEDS: NITRO-BID 2% TP SCH ×5 (06:44→17:30)
[2017-12-23] MEDS: COREG PO SCH ×2 (09:34→22:11)
[2017-12-23] MEDS: IMDUR PO SCH (09:35)
[2017-12-23] MEDS: PROTONIX PO SCH (09:36)
[2017-12-23] MEDS: PLAVIX PO SCH (09:36)
[2017-12-23] MEDS: SODIUM CHLORIDE FLUSH SYRINGE 10 ML IV SCH (09:37)
[2017-12-23 11:00] LABS: Calcium 9.5 mg/dL (8.4-10.2)
[2017-12-23 11:10] LABS: Basophils % (Auto) 0.7 % (0.0-1.8); Eosinophils # (Auto) 0.1 K/mm3 (0.0-0.4); Eosinophils % (Auto) 2.2 % (0.0-4.3); Hematocrit 23.6 % (30.3-42.9); Hemoglobin 7.4 gm/dl (10.1-14.3); Lymphocytes % (Auto) 19.2 % (13.4-35.0); Mean Corpuscular HGB Conc 32 % (30-34); Mean Corpuscular Hemoglobin 28 pg (28-32); Mean Corpuscular Volume 89 fl (79-97); Monocytes # (Auto) 0.8 K/mm3 (0.0-0.8); Monocytes % (Auto) 14.5 % (0.0-7.3); Platelet Count 278 K/mm3 (140-440); Red Blood Count 2.66 M/mm3 (3.65-5.03)
[2017-12-23 11:20] LABS: Red Cell Distribution Width 23.8 % (13.2-15.2)
--- NOTE | 2017-12-23 13:00 | Progress Note ---
Assessment and Plan Consider GI evaluation. Consider transfusion of one unit of PRBCs. Will continue to monitor her cardiac enzymes. She may warrant coronary angiography if enzymes continue to increase plus chest pain. However, it will be better to transfuse before considering any further cardiac evaluation. - Patient Problems (1) Abdominal pain Current Visit: Yes Status: Acute Qualifiers: Abdominal location: generalized Qualified Code(s): R10.84 - Generalized abdominal pain (2) Chest pain Current Visit: Yes Status: Acute (3) Acute non-ST elevation myocardial infarction (NSTEMI) Current Visit: Yes Status: Acute (4) CAD (coronary artery disease) Current Visit: Yes Status: Chronic Qualifiers: Coronary Disease-Associated Artery/Lesion type: [place] artery [place] vs. transplanted heart: [place] heart (5) History of coronary artery stent placement Current Visit: Yes Status: Chronic (6) Ischemic cardiomyopathy Current Visit: Yes Status: Chronic (7) AICD (automatic cardioverter/defibrillator) present Current Visit: Yes Status: Chronic (8) Pulmonary hypertension Current Visit: Yes Status: Chronic (9) Anemia Current Visit: Yes Status: Acute (10) Renal artery stenosis Current Visit: Yes Status: Chronic (11) ESRD (end stage renal disease) on dialysis Current Visit: Yes Status: Chronic (12) HTN (hypertension) Current Visit: Yes Status: Chronic Qualifiers: Hypertension type: essential hypertension Qualified Code(s): I10 - Essential (primary) hypertension Subjective Date of service: 12/23/17 Principal diagnosis: Abd pain, NSTEMI, CAD, s/p PCI, ischemic CMP, ICD, Anemia, ESRD Interval history: Although she admits to still having some chest pain, it appears that her main complaint is abdominal pain at this time. The report of abdominal CTA has been noted. I am concerned about the continuing increase in her troponin levels. Objective Vital Signs Temp Pulse Resp BP BP Pulse Ox 12/23/17 11:28 98.7 F 77 18 102/37 100 12/23/17 09:37 82 131/54 12/23/17 09:35 82 131/54 12/23/17 08:29 98.6 F 82 18 131/54 100 12/23/17 08:02 98 12/23/17 06:45 98.2 F 69 20 129/54 100 12/23/17 06:44 69 129/54 04/08/18 06:25 98.4 F 68 20 122/58 100 12/23/17 05:55 98.4 F 68 20 123/49 100 12/23/17 05:25 98.5 F 69 20 120/49 100 12/23/17 04:55 98.5 F 67 20 120/52 100 12/23/17 04:25 98.4 F 65 20 121/46 100 12/23/17 03:55 98.4 F 67 20 119/53 100 12/23/17 03:25 98.2 F 64 20 98/34 98 12/23/17 03:10 98.6 F 68 20 107/41 100 12/23/17 00:36 97.8 F 69 20 107/38 100 12/22/17 22:00 98 12/22/17 21:44 87 120/52 12/22/17 20:07 98.5 F 84 20 120/52 100 12/22/17 15:57 98.1 F 74 18 123/42 100 12/22/17 14:07 86 138/58 - Physical Examination General: No Apparent Distress HEENT: Positive: EOMI, Normocephaly, Mucus Membranes Moist Neck: Positive: neck supple, trachea midline Cardiac: Positive: Reg Rate and Rhythm, S1/S2 Lungs: Positive: clear to auscultation Neuro: Positive: Grossly Intact Abdomen: Positive: Soft, Active Bowel Sounds, Tender (generalized) Skin: Positive: Clear. Negative: Rash Musculoskeletal: Normal Range of Motion Extremities: Absent: edema - Labs and Meds CBC 12/23/17 Range/Units 09:57 WBC 5.2 (4.5-11.0) K/mm3 RBC 2.66 L (3.65-5.03) M/mm3 Hgb 7.4 L (10.1-14.3) gm/dl Hct 23.6 L (30.3-42.9) % Plt Count 278 (140-440) K/mm3 Lymph # 1.0 L (1.2-5.4) K/mm3 [place] # 0.8 (0.0-0.8) K/mm3 Eos # 0.1 (0.0-0.4) K/mm3 Baso # 0.0 (0.0-0.1) K/mm3 Comprehensive Metabolic Panel 12/23/17 Range/Units 09:57 Sodium 138 (137-145) mmol/L Potassium 6.2 H* D (3.6-5.0) mmol/L Chloride 95.9 L (98-107) mmol/L Carbon Dioxide 24 (22-30) mmol/L BUN 71 H (7-17) mg/dL Creatinine 9.5 H (0.7-1.2) mg/dL Glucose 99 (65-100) mg/dL Calcium 9.5 (8.4-10.2) mg/dL - Imaging and Cardiology EKG: image reviewed - Telemetry EKG Rhythm: Sinus Rhythm - EKG Sinus rhythms and dysrhythmias: sinus rhythm Chamber hypertrophy or enlargement: left ventricular hypertro Repolarization changes or abnormalities: repolarization abn secondary to ventricular hypertrophy
--- NOTE | 2017-12-23 15:44 | Progress Note ---
Assessment and Plan - Patient Problems (1) Chest pain at rest Current Visit: No Status: Acute Plan to address problem: Cardiology has been consulted. (2) Hyperkalemia Current Visit: No Status: Acute Plan to address problem: Repeat potassium stat. If still high, will dialyze patient today on a low potassium bath. I ordered a dose of Kayexalate pending the results (3) Chronic systolic heart failure Current Visit: No Status: Acute Plan to address problem: Fluid removal on dialysis. Continue beta nikolas. (4) Type 2 diabetes mellitus with diabetic nephropathy Current Visit: Yes Status: Acute Plan to address problem: Blood sugar management by primary attending (5) Hypertensive chronic kidney disease with stage 5 chronic kidney disease or end stage renal disease Current Visit: No Status: Acute Plan to address problem: Follow blood pressure on current medications. (6) ESRD (end stage renal disease) on dialysis Current Visit: No Status: Chronic Plan to address problem: Hemodialysis on a Sunday, Sunday and Sunday schedule. (7) Anemia in end-stage renal disease Current Visit: No Status: Acute Plan to address problem: Give Erythropoetin on dialysis. Stress importance of adhering to her dialysis schedule so she can also receive erythropoiesis stimulating agent regularly. Subjective Date of service: 12/23/17 Principal diagnosis: Abd pain, NSTEMI, CAD, s/p PCI, ischemic CMP, ICD, Anemia, ESRD Interval history: Patient seen lying in bed. She has no new complaints. Objective - Exam Narrative Exam: Elderly -Portuguese female lying in bed in no acute distress HEENT: NCAT, pink oral mucous membrane Neck: Supple, no venous distention CVS: S1S2 RRR with no murmur, rub or gallop Chest: Clear to auscultation Abdomen: Protuberant, soft, there is mild tenderness in epigastrium, left upper quadrant, no organomegaly, bowel sounds are present Extremities: No edema, no clubbing Skin warm and dry, no rash Neuro: Awake, alert no focal deficits - Vital Signs Vital signs: Vital Signs - 12hr 12/23/17 12/23/17 12/23/17 03:55 04:25 04:55 Temperature 98.4 F 98.4 F 98.5 F Pulse Rate 67 65 67 Respiratory 20 20 20 Rate Blood Pressure 119/53 121/46 120/52 Blood Pressure [Right] O2 Sat by Pulse 100 100 100 Oximetry 12/23/17 12/23/17 12/23/17 05:25 05:55 06:25 Temperature 98.5 F 98.4 F 98.4 F Pulse Rate 69 68 68 Respiratory 20 20 20 Rate Blood Pressure 120/49 123/49 122/58 Blood Pressure [Right] O2 Sat by Pulse 100 100 100 Oximetry 12/23/17 12/23/17 12/23/17 06:44 06:45 08:02 Temperature 98.2 F Pulse Rate 69 69 Respiratory 20 Rate Blood Pressure 129/54 129/54 Blood Pressure [Right] O2 Sat by Pulse 100 98 Oximetry 12/23/17 12/23/17 12/23/17 08:29 09:35 09:37 Temperature 98.6 F Pulse Rate 82 82 82 Respiratory 18 Rate Blood Pressure 131/54 131/54 Blood Pressure 131/54 [Right] O2 Sat by Pulse 100 Oximetry 12/23/17 12/23/17 11:28 14:11 Temperature 98.7 F Pulse Rate 77 80 Respiratory 18 Rate Blood Pressure 102/37 Blood Pressure [Right] O2 Sat by Pulse 100 Oximetry - Lab 12/23/17 09:57 12/23/17 09:57 Most recent lab results Calcium 9.5 mg/dL (8.4-10.2) 12/23/17 09:57
[2017-12-23] MEDS ORDERED: KIONEX PO ONE (17:00)
[2017-12-24] MEDS: SODIUM CHLORIDE FLUSH SYRINGE 10 ML IV SCH ×2 (00:05→18:29)
[2017-12-24] MEDS: NORCO 5/325 PO PRN ×4 (00:31→20:24)
[2017-12-24] MEDS: NITRO-BID 2% TP SCH ×4 (05:45→18:10)
[2017-12-24 06:05] LABS: Calcium 9.4 mg/dL (8.4-10.2)
[2017-12-24 10:13] LABS: Hematocrit 26.3 % (30.3-42.9); Hemoglobin 8.1 gm/dl (10.1-14.3)
[2017-12-24] MEDS: COREG PO SCH ×2 (10:15→22:24)
--- NOTE | 2017-12-24 10:32 | Progress Note ---
Assessment and Plan - Patient Problems (1) Chest pain at rest Current Visit: No Status: Acute Plan to address problem: Cardiology is following. (2) Hyperkalemia Current Visit: No Status: Acute Plan to address problem: I was not called about repeat potassium yesterday. Patient did receive Kayexalate. Patient is for Hemodialysis this morning. I called the dialysis nurse and she is on the way. (3) Chronic systolic heart failure Current Visit: No Status: Acute Plan to address problem: Fluid removal on dialysis. Continue beta nikolas. (4) Type 2 diabetes mellitus with diabetic nephropathy Current Visit: Yes Status: Acute Plan to address problem: Blood sugar management by primary attending (5) Hypertensive chronic kidney disease with stage 5 chronic kidney disease or end stage renal disease Current Visit: No Status: Acute Plan to address problem: Follow blood pressure on current medications. (6) ESRD (end stage renal disease) on dialysis Current Visit: No Status: Chronic Plan to address problem: Hemodialysis on a Sunday, Sunday and Sunday schedule. (7) Anemia in end-stage renal disease Current Visit: No Status: Acute Plan to address problem: Give Erythropoetin on dialysis. Stress importance of adhering to her dialysis schedule so she can also receive erythropoiesis stimulating agent regularly. Subjective Date of service: 12/24/17 Principal diagnosis: Abd pain, NSTEMI, CAD, s/p PCI, ischemic CMP, ICD, Anemia, ESRD Interval history: Patient seen lying in bed. She has no new complaints. Still complains of abdominal pain/discomfort. She would like something to eat Objective - Exam Narrative Exam: Elderly -Maldivian female lying in bed in no acute distress HEENT: NCAT, pink oral mucous membrane Neck: Supple, no venous distention CVS: S1S2 RRR with no murmur, rub or gallop Chest: Clear to auscultation Abdomen: Protuberant, soft, there is mild tenderness in epigastrium, left upper quadrant, no organomegaly, bowel sounds are present Extremities: No edema, no clubbing Skin warm and dry, no rash Neuro: Awake, alert no focal deficits - Vital Signs Vital signs: Vital Signs - 12hr 12/24/17 12/24/17 12/24/17 00:13 00:31 01:31 Temperature 99.4 F Pulse Rate 87 Respiratory 17 17 Rate Blood Pressure 160/64 O2 Sat by Pulse 99 Oximetry 12/24/17 12/24/17 12/24/17 04:04 05:45 06:00 Temperature 97.7 F Pulse Rate 72 78 75 Respiratory 20 Rate Blood Pressure 135/55 138/60 O2 Sat by Pulse 100 Oximetry 12/24/17 07:19 Temperature 98.7 F Pulse Rate 77 Respiratory 20 Rate Blood Pressure 139/52 O2 Sat by Pulse 100 Oximetry - Lab 12/24/17 09:49 12/24/17 04:58 Most recent lab results Calcium 9.4 mg/dL (8.4-10.2) 12/24/17 04:58
--- NOTE | 2017-12-24 11:37 | Progress Note ---
Assessment and Plan Troponin trending downwards. H/H improved today. Initiate ASA 81. Cont all other present cardiac management. Will plan for lexiscan MPI stress test in AM to assess ischemic burden. NPO after MN. The patient has been seen in conjunction with Dr. Do who agrees with the assessment and plan of care. - Patient Problems (1) Abdominal pain Current Visit: Yes Status: Chronic Qualifiers: Abdominal location: generalized Qualified Code(s): R10.84 - Generalized abdominal pain (2) Chest pain Current Visit: Yes Status: Acute (3) Acute non-ST elevation myocardial infarction (NSTEMI) Current Visit: Yes Status: Acute (4) CAD (coronary artery disease) Current Visit: Yes Status: Chronic Qualifiers: Coronary Disease-Associated Artery/Lesion type: [place] artery [place] vs. transplanted heart: [place] heart (5) History of coronary artery stent placement Current Visit: Yes Status: Chronic (6) Ischemic cardiomyopathy Current Visit: Yes Status: Chronic (7) AICD (automatic cardioverter/defibrillator) present Current Visit: Yes Status: Chronic (8) Pulmonary hypertension Current Visit: Yes Status: Chronic (9) Anemia Current Visit: Yes Status: Acute (10) Renal artery stenosis Current Visit: Yes Status: Chronic (11) ESRD (end stage renal disease) on dialysis Current Visit: Yes Status: Chronic (12) HTN (hypertension) Current Visit: Yes Status: Chronic Qualifiers: Hypertension type: essential hypertension Qualified Code(s): I10 - Essential (primary) hypertension Subjective Date of service: 12/24/17 Principal diagnosis: Abd pain, NSTEMI, CAD, s/p PCI, ischemic CMP, ICD, Anemia, ESRD Interval history: pt resting in bed, c/o abdominal pain. Objective Last Vital Signs Temp 98.7 F 12/24/17 07:19 Pulse 77 12/24/17 07:19 Resp 20 12/24/17 07:19 BP 139/52 12/24/17 07:19 Pulse Ox 100 12/24/17 07:19 - Physical Examination General: No Apparent Distress HEENT: Positive: EOMI, Normocephaly, Mucus Membranes Moist Neck: Positive: neck supple, trachea midline Cardiac: Positive: Reg Rate and Rhythm, S1/S2, Systolic Murmur Lungs: Positive: clear to auscultation Neuro: Positive: Grossly Intact Abdomen: Positive: Soft, Active Bowel Sounds, Tender (generalized) Skin: Positive: Clear. Negative: Rash Musculoskeletal: Normal Range of Motion Extremities: Absent: edema - Labs and Meds CBC 12/24/17 Range/Units 09:49 Hgb 8.1 L (10.1-14.3) gm/dl Hct 26.3 L (30.3-42.9) % Comprehensive Metabolic Panel 12/23/17 12/24/17 Range/Units 16:56 04:58 Sodium 139 (137-145) mmol/L Potassium 6.6 H* 5.7 H (3.6-5.0) mmol/L Chloride 95.0 L (98-107) mmol/L Carbon Dioxide 26 (22-30) mmol/L BUN 85 H (7-17) mg/dL Creatinine 10.4 H (0.7-1.2) mg/dL Glucose 85 (65-100) mg/dL Calcium 9.4 (8.4-10.2) mg/dL - Imaging and Cardiology EKG: image reviewed - EKG Sinus rhythms and dysrhythmias: sinus rhythm Chamber hypertrophy or enlargement: left ventricular hypertro Repolarization changes or abnormalities: repolarization abn secondary to ventricular hypertrophy
--- NOTE | 2017-12-24 11:58 | Progress Note ---
Assessment and Plan Assessment and plan: Abdominal Pain Abdominal CT showed no acute abdominal abnormalities; renal artery causing significant stenosis, calcified plaque in the abdominal aorta noted CHF (congestive heart failure) Fluid restriction, strict I/O, telemetry monitoring, cardiology consulted, pain control, cardiac enzymes, monitor uop q shift to ensure negative fluid balance, dialysis prn ESRD (end stage renal disease) on dialysis Nephrology consulted for dialysis, monitor uop q shift, Diabetes ADA diet,insulin, accu check HTN (hypertension) monitor bp q shift, continue medical management Acute chest pain Pain control, telemetry, cardiology following, lexiscan MPI stress test in AM Anemia in end-stage renal disease Monitor HH, Transfuse if Hgb <7, Epogen with HD GERD (gastroesophageal reflux disease) PPI therapy, supportive care DVT prophylaxis SCDs History Interval history: Patient seen and examined during hemodialysis. No new issues overnight. Labs and nursing notes reviewed. Hospitalist Physical - Constitutional Vitals: Temp Pulse Resp BP Pulse Ox 98.8 F 72 20 147/73 100 12/24/17 11:32 12/24/17 11:39 12/24/17 11:32 12/24/17 11:39 12/24/17 07:19 General appearance: Present: no acute distress, well-nourished - EENT Eyes: Present: PERRL, EOM intact ENT: hearing intact, clear oral mucosa - Neck Neck: Present: supple, normal ROM - Respiratory Respiratory effort: normal Respiratory: bilateral: CTA - Cardiovascular Rhythm: regular Heart Sounds: Present: S1 & S2 - Extremities Extremities: no ischemia, No edema, normal temperature, normal color - Abdominal General gastrointestinal: soft, non-tender, non-distended - Integumentary Integumentary: Present: clear, warm, dry - Psychiatric Psychiatric: appropriate mood/affect, intact judgment & insight, cooperative - Neurologic Neurologic: CNII-XII intact, moves all extremities - Allied Health Allied health notes reviewed: nursing Results - Labs CBC & Chem 7: 12/24/17 09:49 12/24/17 04:58 Labs: Laboratory Last Values WBC 5.2 K/mm3 (4.5-11.0) 12/23/17 09:57 RBC 2.66 M/mm3 (3.65-5.03) L 12/23/17 09:57 Hgb 8.1 gm/dl (10.1-14.3) L 12/24/17 09:49 Hct 26.3 % (30.3-42.9) L 12/24/17 09:49 MCV 89 fl (79-97) 12/23/17 09:57 MCH 28 pg (28-32) 12/23/17 09:57 MCHC 32 % (30-34) 12/23/17 09:57 RDW 23.8 % (13.2-15.2) H 12/23/17 09:57 Plt Count 278 K/mm3 (140-440) 12/23/17 09:57 Lymph % (Auto) 19.2 % (13.4-35.0) 12/23/17 09:57 [place] % (Auto) 14.5 % (0.0-7.3) H 12/23/17 09:57 Eos % (Auto) 2.2 % (0.0-4.3) 12/23/17 09:57 Baso % (Auto) 0.7 % (0.0-1.8) 12/23/17 09:57 Lymph # 1.0 K/mm3 (1.2-5.4) L 12/23/17 09:57 [place] # 0.8 K/mm3 (0.0-0.8) 12/23/17 09:57 Eos # 0.1 K/mm3 (0.0-0.4) 12/23/17 09:57 Baso # 0.0 K/mm3 (0.0-0.1) 12/23/17 09:57 Seg Neutrophils % 63.4 % (40.0-70.0) 12/23/17 09:57 Seg Neutrophils # 3.3 K/mm3 (1.8-7.7) 12/23/17 09:57 Sodium 139 mmol/L (137-145) 12/24/17 04:58 Potassium 5.7 mmol/L (3.6-5.0) H 12/24/17 04:58 Chloride 95.0 mmol/L (98-107) L 12/24/17 04:58 Carbon Dioxide 26 mmol/L (22-30) 12/24/17 04:58 Anion Gap 24 mmol/L 12/24/17 04:58 BUN 85 mg/dL (7-17) H 12/24/17 04:58 Creatinine 10.4 mg/dL (0.7-1.2) H 12/24/17 04:58 Estimated GFR 4 ml/min 12/24/17 04:58 BUN/Creatinine Ratio 8 % 12/24/17 04:58 Glucose 85 mg/dL (65-100) 12/24/17 04:58 Calcium 9.4 mg/dL (8.4-10.2) 12/24/17 04:58 Troponin T 1.180 ng/mL (0.00-0.029) H* 12/24/17 09:49 NT-Pro-B Natriuret Pep > 42880 pg/mL (0-900) H 12/22/17 12:15 Triglycerides 56 mg/dL (2-149) 12/21/17 12:42 Cholesterol 135 mg/dL (50-199) 12/21/17 12:42 LDL Cholesterol Direct 79 mg/dL (50-130) 12/21/17 12:42 HDL Cholesterol 57 mg/dL (40-59) 12/21/17 12:42 Cholesterol/HDL Ratio 2.36 % 12/21/17 12:42 Blood Type O POSITIVE 12/22/17 19:10 Antibody Screen Negative 12/22/17 19:10 Crossmatch See Detail 12/22/17 19:10
[2017-12-24] MEDS ORDERED: NACL 0.9 (PRIMING MACHINE ONLY DIALYSIS) MC ONE (17:42)
[2017-12-24] MEDS: PROTONIX PO SCH (18:29)
[2017-12-24] MEDS: Renal Caps PO SCH (18:29)
[2017-12-24] MEDS: BABY ASPIRIN PO SCH (18:29)
[2017-12-24] MEDS: IMDUR PO SCH (18:29)
[2017-12-24] MEDS: PLAVIX PO SCH (18:29)
[2017-12-24] MEDS: ULTRAM PO PRN (22:23)
[2017-12-25] MEDS: NORCO 5/325 PO PRN ×2 (05:08→12:00)
[2017-12-25] MEDS: NITRO-BID 2% TP SCH ×3 (05:14→14:56)
[2017-12-25] MEDS ORDERED: LEXISCAN IV ONE ×2 (08:26→08:27)
--- NOTE | 2017-12-25 08:54 | Progress Note ---
Hospitalist Physical - Constitutional Vitals: Temp Pulse Resp BP Pulse Ox 97.9 F 73 16 134/55 100 12/25/17 04:40 12/25/17 05:14 12/25/17 04:40 12/25/17 05:14 12/25/17 04:40 General appearance: Present: no acute distress, well-nourished Results - Labs CBC & Chem 7: 12/24/17 09:49 12/24/17 04:58 Labs: Laboratory Last Values WBC 5.2 K/mm3 (4.5-11.0) 12/23/17 09:57 RBC 2.66 M/mm3 (3.65-5.03) L 12/23/17 09:57 Hgb 8.1 gm/dl (10.1-14.3) L 12/24/17 09:49 Hct 26.3 % (30.3-42.9) L 12/24/17 09:49 MCV 89 fl (79-97) 12/23/17 09:57 MCH 28 pg (28-32) 12/23/17 09:57 MCHC 32 % (30-34) 12/23/17 09:57 RDW 23.8 % (13.2-15.2) H 12/23/17 09:57 Plt Count 278 K/mm3 (140-440) 12/23/17 09:57 Lymph % (Auto) 19.2 % (13.4-35.0) 12/23/17 09:57 Christian % (Auto) 14.5 % (0.0-7.3) H 12/23/17 09:57 Eos % (Auto) 2.2 % (0.0-4.3) 12/23/17 09:57 Baso % (Auto) 0.7 % (0.0-1.8) 12/23/17 09:57 Lymph # 1.0 K/mm3 (1.2-5.4) L 12/23/17 09:57 Christian # 0.8 K/mm3 (0.0-0.8) 12/23/17 09:57 Eos # 0.1 K/mm3 (0.0-0.4) 12/23/17 09:57 Baso # 0.0 K/mm3 (0.0-0.1) 12/23/17 09:57 Seg Neutrophils % 63.4 % (40.0-70.0) 12/23/17 09:57 Seg Neutrophils # 3.3 K/mm3 (1.8-7.7) 12/23/17 09:57 Sodium 139 mmol/L (137-145) 12/24/17 04:58 Potassium 5.7 mmol/L (3.6-5.0) H 12/24/17 04:58 Chloride 95.0 mmol/L (98-107) L 12/24/17 04:58 Carbon Dioxide 26 mmol/L (22-30) 12/24/17 04:58 Anion Gap 24 mmol/L 12/24/17 04:58 BUN 85 mg/dL (7-17) H 12/24/17 04:58 Creatinine 10.4 mg/dL (0.7-1.2) H 12/24/17 04:58 Estimated GFR 4 ml/min 12/24/17 04:58 BUN/Creatinine Ratio 8 % 12/24/17 04:58 Glucose 85 mg/dL (65-100) 12/24/17 04:58 Calcium 9.4 mg/dL (8.4-10.2) 12/24/17 04:58 Troponin T 1.180 ng/mL (0.00-0.029) H* 12/24/17 09:49 NT-Pro-B Natriuret Pep > 01558 pg/mL (0-900) H 12/22/17 12:15 Triglycerides 56 mg/dL (2-149) 12/21/17 12:42 Cholesterol 135 mg/dL (50-199) 12/21/17 12:42 LDL Cholesterol Direct 79 mg/dL (50-130) 12/21/17 12:42 HDL Cholesterol 57 mg/dL (40-59) 12/21/17 12:42 Cholesterol/HDL Ratio 2.36 % 12/21/17 12:42 Blood Type O POSITIVE 12/22/17 19:10 Antibody Screen Negative 12/22/17 19:10 Crossmatch See Detail 12/22/17 19:10
[2017-12-25 10:42] LABS: Calcium 10.1 mg/dL (8.4-10.2)
[2017-12-25] MEDS: BABY ASPIRIN PO SCH (11:47)
[2017-12-25] MEDS: PLAVIX PO SCH (11:47)
[2017-12-25] MEDS: Renal Caps PO SCH (11:47)
[2017-12-25] MEDS: PROTONIX PO SCH (11:48)
[2017-12-25] MEDS: IMDUR PO SCH (11:52)
[2017-12-25 11:53] VITALS: BP 150/63
[2017-12-25] MEDS: COREG PO SCH (11:53)
--- NOTE | 2017-12-25 13:31 | Treadmill Report ---
MYOCARDIAL PERFUSION IMAGING STUDY Resting images revealed diminished radioisotope activity in the inferior wall region. There was slightly increased gut uptake noted. Post-Lexiscan perfusion images revealed diminished radioisotope activity in the inferior wall region. there were slightly ischemic defect noted surrounding old inferior wall scar. On gated scan left ventricular contractility was diminished with ejection fraction of 24%. Inferior wall was hypokinetic more than the rest of the ventricle. IMPRESSION: 1. This test is indicative of previous inferior myocardial infarction with minimal surrounding ischemia. 2. Left ventricular systolic dysfunction with EF of 24%. Clinical correlation is suggested for further workup. JOB# [id number] KEITH/RODY
--- NOTE | 2017-12-25 13:34 | Progress Note ---
Assessment and Plan Lexiscan MPI stress test this AM indicative of previous inferior [place] with minimal surrounding ischemia, EF 24%. Findings unchanged when compared to stress test from 09/2017. Recommend continuation of medical management given downwards trend in troponin and resolution of chest pain. No ACEI/ARB in setting of renal insufficiency and hyperkalemia. Currently stable cardiac status. Pt may discharge home from cardiology standpoint. Consider further eval of anemia per primary. Recommend follow up in our office with Amanda Spicer NP, within 1-2 weeks of hospital discharge ([phone]). The patient has been seen in conjunction with Dr. Ford who agrees with the assessment and plan of care. - Patient Problems (1) Abdominal pain Current Visit: Yes Status: Chronic Qualifiers: Abdominal location: generalized Qualified Code(s): R10.84 - Generalized abdominal pain (2) Chest pain Current Visit: Yes Status: Resolved (3) Acute non-ST elevation myocardial infarction (NSTEMI) Current Visit: Yes Status: Acute (4) CAD (coronary artery disease) Current Visit: Yes Status: Chronic Qualifiers: Coronary Disease-Associated Artery/Lesion type: [place] artery [place] vs. transplanted heart: [place] heart (5) History of coronary artery stent placement Current Visit: Yes Status: Chronic (6) Ischemic cardiomyopathy Current Visit: Yes Status: Chronic (7) AICD (automatic cardioverter/defibrillator) present Current Visit: Yes Status: Chronic (8) Pulmonary hypertension Current Visit: Yes Status: Chronic (9) Anemia Current Visit: Yes Status: Acute (10) Renal artery stenosis Current Visit: Yes Status: Chronic (11) ESRD (end stage renal disease) on dialysis Current Visit: Yes Status: Chronic (12) HTN (hypertension) Current Visit: Yes Status: Chronic Qualifiers: Hypertension type: essential hypertension Qualified Code(s): I10 - Essential (primary) hypertension Subjective Date of service: 12/25/17 Principal diagnosis: Abd pain, NSTEMI, CAD, s/p PCI, ischemic CMP, ICD, Anemia, ESRD Interval history: pt for stress test today. denies any current chest pain. Objective Last Vital Signs Temp 98.8 F 12/25/17 11:56 Pulse 86 12/25/17 11:52 Resp 18 12/25/17 12:00 BP 150/63 12/25/17 11:52 Pulse Ox 99 12/25/17 07:40 - Physical Examination General: No Apparent Distress HEENT: Positive: EOMI, Normocephaly, Mucus Membranes Moist Neck: Positive: neck supple, trachea midline Cardiac: Positive: Reg Rate and Rhythm, S1/S2, Systolic Murmur Lungs: Positive: clear to auscultation Neuro: Positive: Grossly Intact Abdomen: Positive: Soft, Active Bowel Sounds, Tender (generalized) Skin: Positive: Clear. Negative: Rash Musculoskeletal: Normal Range of Motion Extremities: Absent: edema - Labs and Meds Comprehensive Metabolic Panel 12/25/17 Range/Units 10:14 Sodium 144 (137-145) mmol/L Potassium 5.2 H (3.6-5.0) mmol/L Chloride 99.4 (98-107) mmol/L Carbon Dioxide 30 (22-30) mmol/L BUN 50 H (7-17) mg/dL Creatinine 6.6 H (0.7-1.2) mg/dL Glucose 98 (65-100) mg/dL Calcium 10.1 (8.4-10.2) mg/dL - Imaging and Cardiology EKG: image reviewed - EKG Sinus rhythms and dysrhythmias: sinus rhythm Chamber hypertrophy or enlargement: left ventricular hypertro Repolarization changes or abnormalities: repolarization abn secondary to ventricular hypertrophy
--- NOTE | 2017-12-25 13:50 | Discharge Summary ---
Providers - Providers Date of Admission: 12/21/17 18:59 Attending physician: DELGADO GOMEZ MD 12/21/17 19:05 Consult to Physician [CONS] Routine Comment: Consulting Provider: NOAH UREÑA Physician Instructions: Reason For Exam: esrd 12/21/17 19:06 Consult to Physician [CONS] Routine Comment: Consulting Provider: CORNELIA MCLEAN Physician Instructions: Reason For Exam: chf,acs Primary care physician: [employer] PROFESSOR Hospitalization Condition: Stable Disposition: DC-30 STILL A PATIENT Exam - Constitutional Vitals: Temp Pulse Resp BP Pulse Ox 98.8 F 86 18 150/63 99 12/25/17 11:56 12/25/17 11:52 12/25/17 12:00 12/25/17 11:52 12/25/17 07:40 Plan Follow up with: PRIMARY CARE, [Primary Care Provider] - 7 Days Prescriptions: Dicyclomine [Bentyl] 10 mg PO TID PRN #30 capsule PRN Reason: Pain Nitroglycerin [Nitrostat] 0.4 mg SL .Q5MIN PRN #30 tablet PRN Reason: Chest Pain Ondansetron [Zofran ODT TAB] 4 mg PO Q8H PRN #30 tab.rapdis PRN Reason: Nausea And Vomiting
[2017-12-25] MEDS: SODIUM CHLORIDE FLUSH SYRINGE 10 ML IV SCH (14:55)
== END 2017-12-25 15:55 | disposition home health service (06) | DRG 280 ==
LOC: ED 11:19 → 4A 18:59
PROVIDERS: ADMIT Internal Medicine; ATTEND Internal Medicine
PROC: 5A1D70Z Performance of Urinary Filtration, Intermittent, Less than 6 Hours Per Day (ICD-10-PCS; 2017-12-21)
PROC: 30233N1 Transfusion of Nonautologous Red Blood Cells into Peripheral Vein, Percutaneous Approach (ICD-10-PCS; principal; 2017-12-23)
PROC: 5A1D70Z Performance of Urinary Filtration, Intermittent, Less than 6 Hours Per Day (ICD-10-PCS; 2017-12-24)
DX: I21.4 Non-ST elevation (NSTEMI) myocardial infarction (principal); N18.6 End stage renal disease; I13.2 Hypertensive heart and chronic kidney disease with heart failure and with stage 5 chronic kidney disease, or end stage renal disease; I50.22 Chronic systolic (congestive) heart failure; M19.90 Unspecified osteoarthritis, unspecified site; E11.22 Type 2 diabetes mellitus with diabetic chronic kidney disease; K21.9 Gastro-esophageal reflux disease without esophagitis; I25.10 Atherosclerotic heart disease of native coronary artery without angina pectoris; G89.29 Other chronic pain; F17.200 Nicotine dependence, unspecified, uncomplicated; I25.5 Ischemic cardiomyopathy; I27.20 Pulmonary hypertension, unspecified; E11.21 Type 2 diabetes mellitus with diabetic nephropathy; D63.1 Anemia in chronic kidney disease; I70.1 Atherosclerosis of renal artery; E87.5 Hyperkalemia; Z79.899 Other long term (current) drug therapy; Z86.73 Personal history of transient ischemic attack (TIA), and cerebral infarction without residual deficits; I25.2 Old myocardial infarction; Z98.51 Tubal ligation status; Z95.810 Presence of automatic (implantable) cardiac defibrillator; Z82.49 Family history of ischemic heart disease and other diseases of the circulatory system; Z95.5 Presence of coronary angioplasty implant and graft
CPT/HCPCS: 36415; 74174; 78452; 80048; 80061; 83880; 84132; 84484; 85014; 85018; 85025; 86850; 86900; 86901; 86920; 93005; 93010; 93017; 94760; A9270-GY; A9502; J2785; J7030; J7040; P9016; Q9967

== ENCOUNTER 2017-12-26 13:01 | Emergency (ER) | payer MEDICARE ==
[2017-12-26 13:20] VITALS: BP 131/48
[2017-12-26 13:57] LABS: Basophils % (Auto) 0.8 % (0.0-1.8); Hematocrit 24.2 % (30.3-42.9); Lymphocytes # (Auto) 0.9 K/mm3 (1.2-5.4); Lymphocytes % (Auto) 21.5 % (13.4-35.0); Mean Corpuscular HGB Conc 33 % (30-34); Mean Corpuscular Hemoglobin 28 pg (28-32); Mean Corpuscular Volume 85 fl (79-97); Monocytes # (Auto) 0.5 K/mm3 (0.0-0.8); Monocytes % (Auto) 12.6 % (0.0-7.3); Platelet Count 305 K/mm3 (140-440); Red Blood Count 2.84 M/mm3 (3.65-5.03)
[2017-12-26 13:58] LABS: Red Cell Distribution Width 22.1 % (13.2-15.2)
[2017-12-26 14:07] LABS: Albumin 3.2 g/dL (3.9-5); Calcium 8.7 mg/dL (8.4-10.2)
== END 2017-12-26 17:30 | disposition left against medical advice (07) ==
LOC: ED 13:01
DX: R11.2 Nausea with vomiting, unspecified (principal); Z53.21 Procedure and treatment not carried out due to patient leaving prior to being seen by health care provider
CPT/HCPCS: 36415; 80053; 85025

== ENCOUNTER 2017-12-28 13:40 | Emergency (ER) | payer MEDICARE ==
[2017-12-28 14:09] VITALS: BP 132/60
== END 2017-12-28 14:30 | disposition left against medical advice (07) ==
LOC: ED 13:40
DX: R07.9 Chest pain, unspecified (principal); Z53.21 Procedure and treatment not carried out due to patient leaving prior to being seen by health care provider

== ENCOUNTER 2018-02-01 09:58 | Inpatient (IN) | payer MEDICARE ==
[2018-02-01] MEDS ORDERED: ASPIRIN PO ONE (10:45)
--- NOTE | 2018-02-01 10:45 | Emergency Department Report ---
Blank Doc - Documentation Documentation: Patient is a 67-year-old female past history of chronically elevated troponin end-stage renal disease who was sent in today from dialysis because of chest pain. Patient did not receive dialysis today. Patient states she has chest pain is worse with exertion and shortness of breath. Patient states his chest pain started last night. Patient has had multiple visits to the emergency department for similar however his auto determine when her chronically elevated troponin is significant or not from the emergency department. Patient be moved to the main ED for personal injury specialist and further workup.
--- NOTE | 2018-02-01 11:21 | Emergency Department Report ---
ED Chest Pain HPI - General Chief Complaint: Chest Pain Stated Complaint: CHEST PAIN Time Seen by Provider: 02/01/18 11:05 Source: patient, EMS Mode of arrival: Stretcher Limitations: No Limitations - History of Present Illness Initial Comments: This 67-year-old female presents to emergency room with complaints of chest pain radiating to her back. 12-14 hours. Pain is better with rest. Pain is worse with exertion. Patient states that this pain is so bad stopping her from sleeping. MD Complaint: chest pain -: Sudden, hour(s) (12 hours ago) Onset: during rest Pain Location: substernal, left chest Pain Radiation: back Severity: severe Severity scale (0 -10): 10 Quality: sharp, ripping Consistency: constant Improves With: rest Worsens With: exertion re: denies: nausea, vomting, diaphoresis, dyspnea, sense of impending doom Other Symptoms: denies: cough, fever, syncope, rash, acid taste in mouth, leg swelling, palpitations, burping Treatments Prior to Arrival: oxygen Aspirin use within the Past 7 Days: (1) Yes - Related Data On Oral Contraceptives: No Home Medications Medication Instructions Recorded Confirmed Last Taken Sennosides [Senna Lax] 8.6 mg PO DAILY PRN 09/27/17 02/01/18 2 Days Ago ~12/22/17 ISOSORBIDE MONOnitrate [Imdur ER] 30 mg PO QDAY 10/14/17 02/01/18 2 Days Ago ~12/22/17 Vit B Comp C/Folic Acid/Vit D3 1 each PO DAILY #0 11/05/17 02/01/18 2 Days Ago [Dialyvite 800 Plus D Wafer] ~12/22/17 Previous Rx's Medication Instructions Recorded Last Taken Type Carvedilol [Coreg] 12.5 mg PO BID #60 tablet 06/27/17 2 Days Ago Rx ~12/22/17 Clopidogrel [Plavix] 75 mg PO QDAY #30 tablet 06/27/17 2 Days Ago Rx ~12/22/17 Atorvastatin Calcium [Lipitor] 40 mg PO DAILY #30 tablet 11/06/17 2 Days Ago Rx ~12/22/17 Pantoprazole [Protonix TAB] 40 mg PO QDAY #30 tablet 11/20/17 2 Days Ago Rx ~12/22/17 Dicyclomine [Bentyl] 10 mg PO TID PRN #30 capsule 12/24/17 Unknown Rx Nitroglycerin [Nitrostat] 0.4 mg SL .Q5MIN PRN #30 tablet 12/24/17 Unknown Rx Ondansetron [Zofran ODT TAB] 4 mg PO Q8H PRN #30 tab.rapdis 12/24/17 Unknown Rx Allergies Allergy/AdvReac Type Severity Reaction Status Date / Time No Known Allergies Allergy Verified 10/21/17 05:14 Heart Score - HEART Score History: Moderately suspicious EKG: Non-specific Age: > 65 Risk factors: > 3 risk factors or hx of atherosclerotic disease Troponin: > 3x normal limit HEART Score: 8 ED Review of Systems ROS: Stated complaint: CHEST PAIN Other details as noted in HPI Comment: All other systems reviewed and negative Constitutional: denies: chills, fever Eyes: denies: eye pain, eye discharge, vision change ENT: denies: ear pain, throat pain Respiratory: shortness of breath, SOB with exertion, SOB at rest. denies: cough , wheezing Cardiovascular: chest pain. denies: palpitations Endocrine: no symptoms reported Gastrointestinal: denies: abdominal pain, nausea, diarrhea Genitourinary: denies: urgency, dysuria, discharge Musculoskeletal: denies: back pain, joint swelling, arthralgia Skin: denies: rash, lesions Neurological: denies: headache, weakness, paresthesias Psychiatric: denies: anxiety, depression Hematological/Lymphatic: denies: easy bleeding, easy bruising ED Past Medical Hx - Past Medical History Previous Medical History?: Yes Hx Hypertension: Yes Hx CVA: Yes (x 2) Hx Heart Attack/AMI: No Hx Congestive Heart Failure: Yes Hx Diabetes: No Hx Deep Vein Thrombosis: No Hx GERD: No Hx Liver Disease: No Hx Renal Disease: Yes (Dialysis MWF) Hx Sickle Cell Disease: No Hx Arthritis: Yes Hx Headaches / Migraines: No Hx Seizures: No Hx Kidney Stones: No Hx Asthma: No Hx COPD: No Hx Tuberculosis: No Hx Dementia: No Hx HIV: No Additional medical history: enlarged heart, gout, [facility] CORONARY ANGIOGRAPHY [place] 08/06/2017-NONOBSTRUCTING HEART PER DR GIDEON BENOIT, dialysis - Surgical History Past Surgical History?: Yes Hx Coronary Stent: Yes Hx Open Heart Surgery: No Hx Pacemaker: No Hx Internal Defibrillator: No Hx Cholecystectomy: No Hx Appendectomy: No Hx Breast Surgery: No Additional Surgical History: tubal ligation, vas cath. LUE fistula. cardiac workup includes a stress test on 12/21/2016 that was unremarkable. Patient status post PCI of RCA with subsequent subacute thrombus of the proximal RCA stent and angioplasty with resolution of thrombosis on November 2016. AICD placement Aug 2017. PCI 03/22/17 of RCA. 05/01/17 neg Lexiscan stress - Family History Family history: hypertension - Social History Smoking Status: Current Some Day Smoker Substance Use Type: None - Medications Home Medications: Home Medications Medication Instructions Recorded Confirmed Last Taken Type Carvedilol [Coreg] 12.5 mg PO BID #60 tablet 06/27/17 02/01/18 2 Days Ago Rx ~12/22/17 Clopidogrel [Plavix] 75 mg PO QDAY #30 tablet 06/27/17 02/01/18 2 Days Ago Rx ~12/22/17 Sennosides [Senna Lax] 8.6 mg PO DAILY PRN 09/27/17 02/01/18 2 Days Ago History ~12/22/17 ISOSORBIDE MONOnitrate [Imdur ER] 30 mg PO QDAY 10/14/17 02/01/18 2 Days Ago History ~12/22/17 Vit B Comp C/Folic Acid/Vit D3 1 each PO DAILY #0 11/05/17 02/01/18 2 Days Ago History [Dialyvite 800 Plus D Wafer] ~12/22/17 Atorvastatin Calcium [Lipitor] 40 mg PO DAILY #30 tablet 11/06/17 02/01/18 2 Days Ago Rx ~12/22/17 Pantoprazole [Protonix TAB] 40 mg PO QDAY #30 tablet 11/20/17 02/01/18 2 Days Ago Rx ~12/22/17 Dicyclomine [Bentyl] 10 mg PO TID PRN #30 capsule 12/24/17 02/01/18 Unknown Rx Nitroglycerin [Nitrostat] 0.4 mg SL .Q5MIN PRN #30 tablet 12/24/17 02/01/18 Unknown Rx Ondansetron [Zofran ODT TAB] 4 mg PO Q8H PRN #30 tab.rapdis 12/24/17 02/01/18 Unknown Rx ED Physical Exam - General Limitations: No Limitations General appearance: alert, in no apparent distress - Head Head exam: Present: atraumatic, normocephalic - Eye Eye exam: Present: normal appearance - ENT ENT exam: Present: mucous membranes moist - Neck Neck exam: Present: normal inspection - Respiratory Respiratory exam: Present: normal lung sounds bilaterally. Absent: respiratory distress - Cardiovascular Cardiovascular Exam: Present: regular rate, normal rhythm. Absent: systolic murmur, diastolic murmur, rubs, gallop - GI/Abdominal GI/Abdominal exam: Present: soft, normal bowel sounds - Extremities Exam Extremities exam: Present: normal inspection - Back Exam Back exam: Present: normal inspection - Neurological Exam Neurological exam: Present: alert, oriented X3 - Psychiatric Psychiatric exam: Present: normal affect, normal mood - Skin Skin exam: Present: warm, dry, intact, normal color. Absent: rash ED Course Vital Signs 02/01/18 02/01/18 02/01/18 10:22 11:48 16:30 Temperature 98.6 F 98.5 F Pulse Rate 80 80 83 Respiratory 18 16 21 Rate Blood Pressure 150/108 Blood Pressure 148/61 140/59 [Left] O2 Sat by Pulse 98 99 98 Oximetry - Reevaluation(s) Reevaluation #1: Patient is 67-year-old female with multiple visits for chest pain. Will admit patient to the hospital for further evaluation. Due to patient's chronicity of her chronically elevated troponin and kidney disease it's hard to determine the acuity of her troponin. Thus we will admit patient to the hospitalist service for further evaluation and treatment 02/01/18 14:27 MONE score - Mone Score Age > 65: (1) Yes Aspirin use within the Past 7 Days: (1) Yes 3 or more CAD Risk Factors: (1) Yes 2 or more Angina events in past 24 hrs: (0) No Known CAD with more than 50% Stenosis: (1) Yes Elevated Cardiac Markers: (1) Yes ST Deviation Greater than 0.5mm: (0) No MONE Score: 5 ED Medical Decision Making - Lab Data Result diagrams: 02/01/18 11:12 02/01/18 11:12 - EKG Data -: EKG Interpreted by Me EKG shows normal: sinus rhythm, intervals Rate: normal - EKG Data Interpretation: LVH, other (ST segment depression) - Radiology Data Radiology results: report reviewed, image reviewed - Medical Decision Making 4-year-old female presented to the emergency room with chest pain radiating to her back. Will admit patient to the hospitalist service for further evaluation treatment. - Differential Diagnosis chest pain. Chest wall pain. Back pain. ACS. Chronic pain. Critical care attestation.: If time is entered above; I have spent that time in minutes in the direct care of this critically ill patient, excluding procedure time. ED Disposition Clinical Impression: Chest pain, Elevated troponin, HTN (hypertension), ESRD (end stage renal disease) on dialysis, Anemia in end-stage renal disease Disposition: OP ADMIT IP TO THIS HOSP Is pt being admited?: Yes Does the pt Need Aspirin: No Condition: Serious Time of Disposition: 14:30
[2018-02-01 11:31] LABS: Hematocrit 26.5 % (30.3-42.9); Hemoglobin 8.6 gm/dl (10.1-14.3); Mean Corpuscular HGB Conc 33 % (30-34); Mean Corpuscular Hemoglobin 30 pg (28-32); Mean Corpuscular Volume 92 fl (79-97); Platelet Count 345 K/mm3 (140-440); Red Blood Count 2.86 M/mm3 (3.65-5.03)
[2018-02-01 11:36] LABS: Red Cell Distribution Width 21.6 % (13.2-15.2)
--- NOTE | 2018-02-01 11:40 | XRay Report ---
AP CHEST : 02/01/18 CLINICAL: Chest pain. COMPARISON:12/14/17 FINDINGS: Stable cardiomegaly with a single cardiac lead and a battery pack at the left inferior chest wall. Mild central vascular congestion is unchanged compared to the prior exam. The lungs are normally expanded and clear. An oval density of the proximal right humerus is new compared to the prior exam. IMPRESSION: Cardiomegaly and pulmonary venous hypertension but no pulmonary edema. No pneumonia. A possible new sclerotic lesion in the right proximal humerus. Recommend humerus x-rays.
[2018-02-01] MEDS ORDERED: MORPHINE IM ONE ×2 (11:44→14:30)
[2018-02-01 11:45] LABS: Calcium 9.4 mg/dL (8.4-10.2)
[2018-02-01 13:06] LABS: Band Neutrophils # (Manual) 0.1 K/mm3; Basophils % (Manual) 0 % (0.0-1.8); Hypochromasia 2+; Ovalocytes 1+; Platelet Estimate Consistent w Auto; Total Cells Counted 100
[2018-02-01 14:30] LABS: Chol/HDL Ratio 2.26 %
--- NOTE | 2018-02-01 15:13 | Cat Scan Report ---
CT scan of chest without IV contrast: History: Chest pain. Findings: No endobronchial or mediastinal mass. No mediastinal, hilar or axillary adenopathy. Dilated pulmonary trunk and IJ suggesting pulmonary arterial hypertension. Maximum diameter of ascending aorta 3.8 cm and descending thoracic aorta 3.03 cm. Bibasilar atelectasis. No consolidation or mass the lung parenchyma. Impression: Findings suggestive of pulmonary arterial hypertension. Bibasilar atelectasis.
--- NOTE | 2018-02-01 15:36 | History and Physical Report ---
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 Pt states that she experienced pain in her chest and all over her body over the past 2 days with worsened symptoms over the past 12 hours. Pt states that pain is 10/10, substernal, radiates to the back, worse with movement , relieved with rest. Pt denies fever, chills, palpitations, productive cough , orthopnea, difficulty breathing, NVD, syncope, vertigo, prolonged immobility/ travel, individual/family history of DVT/PE. Pt seen and evaluated in ED and found to have ESRD as well as evidence of ACS. Pt treated with supplemental oxygen, nebulizer therapy, NIPPV. Nephrology team consulted in ED. Past History Past Medical History: CAD, diabetes, ESRD, GERD, heart failure, hypertension, stroke Past Surgical History: Other (tubal ligation, vas cath. LUE fistula. ) Social history: , smoking. denies: alcohol abuse, prescription drug abuse Family history: diabetes, hypertension Medications and Allergies Allergies Allergy/AdvReac Type Severity Reaction Status Date / Time No Known Allergies Allergy Verified 10/21/17 05:14 Home Medications Medication Instructions Recorded Confirmed Last Taken Type Carvedilol [Coreg] 12.5 mg PO BID #60 tablet 06/27/17 02/01/18 2 Days Ago Rx ~12/22/17 Clopidogrel [Plavix] 75 mg PO QDAY #30 tablet 06/27/17 02/01/18 2 Days Ago Rx ~12/22/17 Sennosides [Senna Lax] 8.6 mg PO DAILY PRN 09/27/17 02/01/18 2 Days Ago History ~12/22/17 ISOSORBIDE MONOnitrate [Imdur ER] 30 mg PO QDAY 10/14/17 02/01/18 2 Days Ago History ~12/22/17 Vit B Comp C/Folic Acid/Vit D3 1 each PO DAILY #0 11/05/17 02/01/18 2 Days Ago History [Dialyvite 800 Plus D Wafer] ~12/22/17 Atorvastatin Calcium [Lipitor] 40 mg PO DAILY #30 tablet 11/06/17 02/01/18 2 Days Ago Rx ~12/22/17 Pantoprazole [Protonix TAB] 40 mg PO QDAY #30 tablet 11/20/17 02/01/18 2 Days Ago Rx ~12/22/17 Dicyclomine [Bentyl] 10 mg PO TID PRN #30 capsule 12/24/17 02/01/18 Unknown Rx Nitroglycerin [Nitrostat] 0.4 mg SL .Q5MIN PRN #30 tablet 12/24/17 02/01/18 Unknown Rx Ondansetron [Zofran ODT TAB] 4 mg PO Q8H PRN #30 tab.rapdis 12/24/17 02/01/18 Unknown Rx Review of Systems Constitutional: chronic pain, no weight loss, no weight gain, no fever, no chills Ears, nose, mouth and throat: no ear pain, no ear discharge, no tinnitis, no decreased hearing, no nose pain, no nasal congestion Breasts: no change in shape, no swelling, no mass Cardiovascular: chest pain, edema, no orthopnea, no palpitations, no lightheadedness, no shortness of breath Respiratory: no cough, no cough with sputum, no excessive sputum, no hemoptysis , no shortness of breath Gastrointestinal: no abdominal pain, no nausea, no vomiting, no diarrhea, no constipation, no change in bowel habits Genitourinary Female: no pelvic pain, no flank pain, no menorrhagia, no dysuria , no urinary frequency, no urgency Rectal: no pain, no incontinence, no bleeding Musculoskeletal: no neck stiffness, no neck pain, no shooting arm pain, no arm numbness/tingling, no low back pain, no shooting leg pain, no leg numbness/ tingling Integumentary: no rash, no pruritis, no redness, no sores, no wounds Neurological: no paralysis, no weakness, no parathesias, no numbness, no tingling, no seizures, no syncope Psychiatric: no anxiety, no memory loss, no change in sleep habits, no sleep disturbances, no insomnia, no hypersomnia Endocrine: no cold intolerance, no heat intolerance, no polyphagia, no excessive thirst, no polydipsia, no polyuria, no nocturia Hematologic/Lymphatic: no easy bruising, no easy bleeding, no lymphadenopathy, no lymphedema Allergic/Immunologic: no urticaria, no allergic rhinitis, no wheezing, no persistent infections, no anaphylaxis, no angioedema Exam - Constitutional Vitals: Temp Pulse Resp BP Pulse Ox 98.5 F 80 16 148/61 99 02/01/18 11:48 02/01/18 11:48 02/01/18 11:48 02/01/18 11:48 02/01/18 11:48 General appearance: Present: mild distress, cachectic - EENT Eyes: Present: PERRL ENT: hearing intact, clear oral mucosa - Neck Neck: Present: supple, normal ROM - Respiratory Respiratory effort: normal Respiratory: bilateral: diminished - Cardiovascular Heart Sounds: Present: S1 & S2. Absent: rub, click - Extremities Extremities: pulses symmetrical, No edema Peripheral Pulses: within normal limits - Abdominal General gastrointestinal: Present: soft, non-tender, non-distended, normal bowel sounds Female genitourinary: Present: normal - Integumentary Integumentary: Present: clear, warm, dry - Musculoskeletal Musculoskeletal: gait normal, strength equal bilaterally - Psychiatric Psychiatric: appropriate mood/affect, intact judgment & insight - Neurologic Neurologic: CNII-XII intact, moves all extremities Results - Labs CBC & Chem 7: 02/01/18 11:12 02/01/18 11:12 Labs: Abnormal lab results 02/01/18 02/01/18 02/01/18 Range/Units 11:12 11:12 13:48 RBC 2.86 L (3.65-5.03) M/mm3 Hgb 8.6 L (10.1-14.3) gm/dl Hct 26.5 L (30.3-42.9) % RDW 21.6 H (13.2-15.2) % Monocytes % (Manual) 14.0 H (0.0-7.3) % Sodium 136 L (137-145) mmol/L Chloride 94.1 L (98-107) mmol/L Carbon Dioxide 32 H (22-30) mmol/L BUN 64 H (7-17) mg/dL Creatinine 7.0 H (0.7-1.2) mg/dL Troponin T 0.262 H* 0.249 H* (0.00-0.029) ng/mL HDL Cholesterol 73 H (40-59) mg/dL Assessment and Plan - Patient Problems (1) CHF (congestive heart failure) Current Visit: Yes Status: Acute Qualifiers: Heart failure chronicity: acute on chronic Plan to address problem: Strict I/O, Monitor uop q shift, daily weight, monitor daily fluid balance, diuresis, dialysis as per renal team, afterload reduction, (2) HTN (hypertension) Current Visit: Yes Status: Acute Qualifiers: Hypertension type: essential hypertension Plan to address problem: monitor bp q shift, resume prehospital antihypertensive therapy (3) ESRD (end stage renal disease) on dialysis Current Visit: Yes Status: Chronic Plan to address problem: Nephrology consulted, dialysis as per renal team, renal diet, (4) Chest pain Current Visit: Yes Status: Acute Qualifiers: Chest pain type: other chest pain Qualified Code(s): R07.89 - Other chest pain; R07.8 - Other chest pain Plan to address problem: Atypical chest wall pain, secondary to fluid overload and increased work of breathing. supportive care, NO EKG changes. pain control, dialysis as per renal team. supplemental oxygen, pain control (5) DVT prophylaxis Current Visit: No Status: Acute Plan to address problem: SCD to BLE while in bed
[2018-02-01] MEDS ORDERED: SODIUM CHLORIDE FLUSH SYRINGE 10 ML IV PRN (18:27)
[2018-02-01] MEDS ORDERED: ZOFRAN IV PRN (18:27)
[2018-02-01] MEDS ORDERED: PROVENTIL IH PRN (18:27)
[2018-02-01] MEDS: TYLENOL PO PRN (21:30)
[2018-02-01] MEDS: SODIUM CHLORIDE FLUSH SYRINGE 10 ML IV SCH (22:35)
[2018-02-02] MEDS: TYLENOL PO PRN ×3 (04:28→22:29)
[2018-02-02] MEDS ORDERED: MORPHINE IV PRN (09:43)
--- NOTE | 2018-02-02 09:45 | Progress Note ---
Assessment and Plan Assessment and plan: --End-stage renal disease on hemodialysis;MWF Patient missed dialysis, HD per schedule, nephrology evaluation Continue current management --Hypertensive nephropathy; secondary to end-stage renal disease Continue current antihypertensives and when necessary medications --Atypical chest pain; non-cardiac Patient was extensively evaluated in the past Continue supportive care --Chronic elevation of troponin; secondary to end-stage renal disease --Anemia of end-stage renal disease; continue Procrit Closely monitor H&H and transfuse as needed --Medical noncompliance; with hemodialysis and medications Counseling done advised to comply with medications and dialysis and --DVT prophylaxis; heparin renal dose Closely monitor the patient Possible discharge in 1-2 days if stable History Interval history: Patient seen and examined medical records reviewed Missed hemodialysis, evaluated nephrology Possible dialysis today Patient complains of vague chest pain Asks for more pain medications Alert awake oriented 3 not in acute distress Hospitalist Physical - Constitutional Vitals: Temp Pulse Resp BP Pulse Ox 98.0 F 84 20 136/49 100 02/02/18 07:56 02/02/18 07:56 02/02/18 07:56 02/02/18 07:56 02/02/18 07:56 General appearance: Present: no acute distress, well-nourished - EENT Eyes: Present: PERRL, EOM intact - Neck Neck: Present: supple, normal ROM - Respiratory Respiratory effort: normal Respiratory: bilateral: diminished, negative: rales, rhonchi, wheezing - Cardiovascular Rhythm: regular Heart Sounds: Present: S1 & S2 - Extremities Extremities: no ischemia, No edema - Abdominal General gastrointestinal: soft, non-tender, non-distended, normal bowel sounds - Integumentary Integumentary: Present: clear, warm - Psychiatric Psychiatric: appropriate mood/affect, cooperative - Neurologic Neurologic: CNII-XII intact, moves all extremities Results - Labs CBC & Chem 7: 02/01/18 11:12 02/01/18 11:12 Labs: Laboratory Last Values WBC 6.0 K/mm3 (4.5-11.0) 02/01/18 11:12 RBC 2.86 M/mm3 (3.65-5.03) L 02/01/18 11:12 Hgb 8.6 gm/dl (10.1-14.3) L 02/01/18 11:12 Hct 26.5 % (30.3-42.9) L 02/01/18 11:12 MCV 92 fl (79-97) 02/01/18 11:12 MCH 30 pg (28-32) 02/01/18 11:12 MCHC 33 % (30-34) 02/01/18 11:12 RDW 21.6 % (13.2-15.2) H 02/01/18 11:12 Plt Count 345 K/mm3 (140-440) 02/01/18 11:12 [place] % (Auto) Wood Router Hand 02/01/18 11:12 Add Manual Diff Complete 02/01/18 11:12 Total Counted 100 02/01/18 11:12 Seg Neuts % (Manual) 61.0 % (40.0-70.0) 02/01/18 11:12 Band Neutrophils % 2.0 % 02/01/18 11:12 Lymphocytes % (Manual) 22.0 % (13.4-35.0) 02/01/18 11:12 Reactive Lymphs % (Man) 0 % 02/01/18 11:12 Monocytes % (Manual) 14.0 % (0.0-7.3) H 02/01/18 11:12 Eosinophils % (Manual) 1.0 % (0.0-4.3) 02/01/18 11:12 Basophils % (Manual) 0 % (0.0-1.8) 02/01/18 11:12 Metamyelocytes % 0 % 02/01/18 11:12 Myelocytes % 0 % 02/01/18 11:12 Promyelocytes % 0 % 02/01/18 11:12 Blast Cells % 0 % 02/01/18 11:12 Nucleated RBC % Not Reportable 02/01/18 11:12 Seg Neutrophils # Man 3.7 K/mm3 (1.8-7.7) 02/01/18 11:12 Band Neutrophils # 0.1 K/mm3 02/01/18 11:12 Lymphocytes # (Manual) 1.3 K/mm3 (1.2-5.4) 02/01/18 11:12 Abs React Lymphs (Man) 0.0 K/mm3 02/01/18 11:12 Monocytes # (Manual) 0.8 K/mm3 (0.0-0.8) 02/01/18 11:12 Eosinophils # (Manual) 0.1 K/mm3 (0.0-0.4) 02/01/18 11:12 Basophils # (Manual) 0.0 K/mm3 (0.0-0.1) 02/01/18 11:12 Metamyelocytes # 0.0 K/mm3 02/01/18 11:12 Myelocytes # 0.0 K/mm3 02/01/18 11:12 Promyelocytes # 0.0 K/mm3 02/01/18 11:12 Blast Cells # 0.0 K/mm3 02/01/18 11:12 WBC Morphology Not Reportable 02/01/18 11:12 Hypersegmented Neuts Not Reportable 02/01/18 11:12 Hyposegmented Neuts Not Reportable 02/01/18 11:12 Hypogranular Neuts Not Reportable 02/01/18 11:12 Smudge Cells Not Reportable 02/01/18 11:12 Toxic Granulation Not Reportable 02/01/18 11:12 Toxic Vacuolation Not Reportable 02/01/18 11:12 Dohle Bodies Not Reportable 02/01/18 11:12 Pelger-Huet Anomaly Not Reportable 02/01/18 11:12 Angélica Rods Not Reportable 02/01/18 11:12 Platelet Estimate Consistent w auto 02/01/18 11:12 Clumped Platelets Not Reportable 02/01/18 11:12 Plt Clumps, EDTA Not Reportable 02/01/18 11:12 Large Platelets Not Reportable 02/01/18 11:12 Giant Platelets Not Reportable 02/01/18 11:12 Platelet Satelliting Not Reportable 02/01/18 11:12 Plt Morphology Comment Not Reportable 02/01/18 11:12 RBC Morphology Not Reportable 02/01/18 11:12 Dimorphic RBCs Not Reportable 02/01/18 11:12 Polychromasia Not Reportable 02/01/18 11:12 Hypochromasia 2+ 02/01/18 11:12 Poikilocytosis Not Reportable 02/01/18 11:12 Anisocytosis Not Reportable 02/01/18 11:12 Microcytosis 1+ 02/01/18 11:12 Macrocytosis Not Reportable 02/01/18 11:12 Spherocytes Not Reportable 02/01/18 11:12 Pappenheimer Bodies Not Reportable 02/01/18 11:12 Sickle Cells Not Reportable 02/01/18 11:12 Target Cells Not Reportable 02/01/18 11:12 Tear Drop Cells Not Reportable 02/01/18 11:12 Ovalocytes 1+ 02/01/18 11:12 Helmet Cells Not Reportable 02/01/18 11:12 Davila-Vance Bodies Not Reportable 02/01/18 11:12 Agness Rings Not Reportable 02/01/18 11:12 [place] Cells Not Reportable 02/01/18 11:12 Bite Cells Not Reportable 02/01/18 11:12 Crenated Cell Not Reportable 02/01/18 11:12 Elliptocytes Few 02/01/18 11:12 Acanthocytes (Spur) Not Reportable 02/01/18 11:12 Rouleaux Not Reportable 02/01/18 11:12 Hemoglobin C Crystals Not Reportable 02/01/18 11:12 Schistocytes Not Reportable 02/01/18 11:12 Malaria parasites Not Reportable 02/01/18 11:12 [place] Bodies Not Reportable 02/01/18 11:12 Hem Pathologist Commnt No 02/01/18 11:12 Sodium 136 mmol/L (137-145) L 02/01/18 11:12 Potassium 4.8 mmol/L (3.6-5.0) 02/01/18 11:12 Chloride 94.1 mmol/L (98-107) L 02/01/18 11:12 Carbon Dioxide 32 mmol/L (22-30) H 02/01/18 11:12 Anion Gap 15 mmol/L 02/01/18 11:12 BUN 64 mg/dL (7-17) H 02/01/18 11:12 Creatinine 7.0 mg/dL (0.7-1.2) H 02/01/18 11:12 Estimated GFR 7 ml/min 02/01/18 11:12 BUN/Creatinine Ratio 9 % 02/01/18 11:12 Glucose 91 mg/dL (65-100) 02/01/18 11:12 Calcium 9.4 mg/dL (8.4-10.2) 02/01/18 11:12 Troponin T 0.249 ng/mL (0.00-0.029) H* 02/01/18 13:48 Triglycerides 54 mg/dL (2-149) 02/01/18 11:12 Cholesterol 165 mg/dL (50-199) 02/01/18 11:12 LDL Cholesterol Direct 92 mg/dL (50-130) 02/01/18 11:12 HDL Cholesterol 73 mg/dL (40-59) H 02/01/18 11:12 Cholesterol/HDL Ratio 2.26 % 02/01/18 11:12
[2018-02-02] MEDS: SODIUM CHLORIDE FLUSH SYRINGE 10 ML IV SCH ×2 (11:50→22:15)
[2018-02-02] MEDS ORDERED: PROCRIT IV PRN (13:39)
[2018-02-02] MEDS ORDERED: ZEMPLAR IV PRN (13:39)
[2018-02-02] MEDS ORDERED: HEPARIN 10,000 UNITS/10 ML IV PRN (13:39)
[2018-02-02] MEDS ORDERED: NACL 0.9% 100 ML IV PRN (13:39)
--- NOTE | 2018-02-02 14:14 | Consultation ---
History of Present Illness - Reason for Consult Consult date: 02/02/18 end stage renal disease Requesting physician: JODI CASTILLO - History of Present Illness 67-year-old lady who is known to me with end-stage renal disease on hemodialysis on a Sunday, Sunday and Sunday schedule. Patient has had numerous hospitalizations with chest pain and has had extensive workup. She does have a history of coronary artery disease. She is poorly compliant with dialysis regimen. Patient states she went to dialysis and was sent to the hospital with complaints of chest pain. She states she woke up with pain in her chest which she describes as a soreness, moderate to severe, radiating to her back. It was aggravated by exertion and relieved with rest. There was no associated nausea vomiting dizziness or diaphoresis. No shortness of breath or palpitations. She was sent to the hospital from dialysis Past History Past Medical History: CAD, diabetes, ESRD, GERD, heart failure, hypertension, stroke, other (severe pulmonary hypertension, ischemic cardiomyopathy) Past Surgical History: appendectomy, PTCA, Other (tubal ligation, vas cath. LUE fistula. 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 denies: alcohol abuse, prescription drug abuse, IV drug use Family history: CAD, diabetes, hypertension Medications and Allergies Allergies Allergy/AdvReac Type Severity Reaction Status Date / Time No Known Allergies Allergy Verified 10/21/17 05:14 Home Medications Medication Instructions Recorded Confirmed Last Taken Type Carvedilol [Coreg] 12.5 mg PO BID #60 tablet 06/27/17 02/01/18 2 Days Ago Rx ~12/22/17 Clopidogrel [Plavix] 75 mg PO QDAY #30 tablet 06/27/17 02/01/18 2 Days Ago Rx ~12/22/17 Sennosides [Senna Lax] 8.6 mg PO DAILY PRN 09/27/17 02/01/18 2 Days Ago History ~12/22/17 ISOSORBIDE MONOnitrate [Imdur ER] 30 mg PO QDAY 10/14/17 02/01/18 2 Days Ago History ~12/22/17 Vit B Comp C/Folic Acid/Vit D3 1 each PO DAILY #0 11/05/17 02/01/18 2 Days Ago History [Dialyvite 800 Plus D Wafer] ~12/22/17 Atorvastatin Calcium [Lipitor] 40 mg PO DAILY #30 tablet 11/06/17 02/01/18 2 Days Ago Rx ~12/22/17 Pantoprazole [Protonix TAB] 40 mg PO QDAY #30 tablet 11/20/17 02/01/18 2 Days Ago Rx ~12/22/17 Dicyclomine [Bentyl] 10 mg PO TID PRN #30 capsule 12/24/17 02/01/18 Unknown Rx Nitroglycerin [Nitrostat] 0.4 mg SL .Q5MIN PRN #30 tablet 12/24/17 02/01/18 Unknown Rx Ondansetron [Zofran ODT TAB] 4 mg PO Q8H PRN #30 tab.rapdis 12/24/17 02/01/18 Unknown Rx Active Meds: Active Medications Acetaminophen (Tylenol) 650 mg PO Q4H PRN PRN Reason: Pain MILD(1-3)/Fever >100.5/SANCHEZ Last Admin: 02/02/18 04:28 Dose: 650 mg Albuterol (Proventil) 2.5 mg IH Q4HRT PRN PRN Reason: Shortness Of Breath Epoetin Reece (Procrit) 10,000 unit IV JOAN PRN PRN Reason: hemodialysis Heparin Sodium (Porcine) (Heparin 10,000 Units/10 Ml) 1,000 unit IV JOAN PRN PRN Reason: hemodialysis Sodium Chloride (Nacl 0.9%) 100 mls @ 999 mls/hr IV JOAN PRN PRN Reason: Hypotension Morphine Sulfate (Morphine) 0.5 mg IV Q6H PRN PRN Reason: Pain, Moderate (4-6) Last Admin: 02/02/18 11:50 Dose: 0.5 mg Ondansetron HCl (Zofran) 4 mg IV Q8H PRN PRN Reason: Nausea And Vomiting Paricalcitol (Zemplar) 0.5 mcg IV JOAN PRN PRN Reason: hemodialysis Sodium Chloride (Sodium Chloride Flush Syringe 10 Ml) 10 ml IV BID ETHAN Last Admin: 02/02/18 11:50 Dose: 10 ml Sodium Chloride (Sodium Chloride Flush Syringe 10 Ml) 10 ml IV PRN PRN PRN Reason: LINE FLUSH Review of Systems All systems: negative (Constitutional: no fever or chills. No anorexia or weight loss. HEENT: No sore throat or sinus drainage no hearing or vision impairment . Cardiovascular: See history of present illness. No lower extremity swelling.. Respiratory: No cough, sputum, shortness of breath, hemoptysis or wheezing. Gastrointestinal: No nausea, vomiting, diarrhea, abdominal pain, hematemesis or melena. Genitourinary: She makes very little urine No frequency urgency dysuria or hematuria. hematologic: No abnormal bleeding or bruising. Integumentary: no pruritus or rash. Neurological: No headache no focal weakness or numbness, no syncope or seizures. Musculoskeletal : No joint pains no stiffness. Psychiatry: no anxiety or depression) Exam - Vital Signs Vital signs: Vital Signs Temp Pulse Resp BP Pulse Ox 98.6 F 80 18 150/108 98 02/01/18 10:22 02/01/18 10:22 02/01/18 10:22 02/01/18 10:22 02/01/18 10:22 - Physical Exam Narrative exam: Elderly female lying in bed in no acute distress HEENT: NCAT, pink oral mucous membrane Neck: Supple, no venous distention CVS: S1S2 RRR with no murmur, rub or gallop Chest: Clear to auscultation, good chest expansion Abdomen: Protuberant, soft, nontender, no organomegaly, bowel sounds are present Extremities: No edema, no clubbing Genitourinary deferred Skin warm and dry, no rash Neuro: Awake, alert no focal deficits Results - Lab Results 02/01/18 11:12 02/01/18 11:12 Most recent lab results Calcium 9.4 mg/dL (8.4-10.2) 02/01/18 11:12 Assessment and Plan - Patient Problems (1) Hypertensive chronic kidney disease with stage 5 chronic kidney disease or end stage renal disease Current Visit: Yes Status: Acute Plan to address problem: Follow-up blood pressure on current medications (2) Anemia in end-stage renal disease Current Visit: Yes Status: Acute Plan to address problem: Erythropoietin on dialysis (3) Chest pain Current Visit: Yes Status: Acute Qualifiers: Chest pain type: other chest pain Qualified Code(s): R07.89 - Other chest pain; R07.8 - Other chest pain Plan to address problem: Management by primary attending (4) ESRD (end stage renal disease) on dialysis Current Visit: Yes Status: Chronic Plan to address problem: Hemodialysis today and then resume regular schedule of Sunday, Sunday and Sunday next week.
--- NOTE | 2018-02-02 15:53 | Discharge Summary ---
Providers - Providers Date of Admission: 02/01/18 18:27 Date of discharge: 02/02/18 Attending physician: RANDI ZACARIAS 02/01/18 15:40 Consult to Physician [CONS] Routine Comment: KALYANI Consulting Provider: NOAH UREÑA Physician Instructions: SPOKE WITH NOAH BERRY @ 12:45 Reason For Exam: esrd Primary care physician: [employer] Hospitalization Reason for admission: missed hemodialysis, chest pain Condition: Serious Hospital course: --End-stage renal disease on hemodialysis;MWF Patient missed dialysis, HD per schedule, nephrology evaluation Continue current management --Hypertensive nephropathy; secondary to end-stage renal disease Continue current antihypertensives and when necessary medications --Atypical chest pain; non-cardiac Patient was extensively evaluated in the past Continue supportive care --Chronic elevation of troponin; secondary to end-stage renal disease --Anemia of end-stage renal disease; continue Procrit Closely monitor H&H and transfuse as needed --Medical noncompliance; with hemodialysis and medications Counseling done advised to comply with medications and dialysis and diet Disposition: DC-01 TO HOME OR SELFCARE Time spent for discharge: 32 min Core Measure Documentation - Palliative Care Palliative Care/ Comfort Measures: Not Applicable - Core Measures Any of the following diagnoses?: none Exam - Constitutional Vitals: Temp Pulse Resp BP Pulse Ox 99.2 F 87 19 155/65 98 02/02/18 12:59 02/02/18 12:59 02/02/18 12:59 02/02/18 12:59 02/02/18 12:59 General appearance: Present: no acute distress, well-nourished - EENT Eyes: Present: PERRL, EOM intact - Neck Neck: Present: supple, normal ROM - Respiratory Respiratory effort: normal Respiratory: bilateral: diminished, negative: rales, rhonchi, wheezing - Cardiovascular Rhythm: regular Heart Sounds: Present: S1 & S2 - Extremities Extremities: no ischemia, No edema Peripheral Pulses: within normal limits - Abdominal General gastrointestinal: Present: soft, non-tender, non-distended, normal bowel sounds - Integumentary Integumentary: Present: clear, warm - Musculoskeletal Musculoskeletal: strength equal bilaterally - Psychiatric Psychiatric: appropriate mood/affect, cooperative - Neurologic Neurologic: moves all extremities Plan Activity: advance as tolerated, fall precautions Diet: renal Additional Instructions: f/u Renal and HD per schedule [MWF] Follow up with: PRIMARY CAREMD [Primary Care Provider] - 7 Days NOAH UREÑA MD [Staff Physician] - 7 Days
[2018-02-02] MEDS ORDERED: NACL 0.9 (PRIMING MACHINE ONLY DIALYSIS) MC ONE (18:28)
[2018-02-03] MEDS: TYLENOL PO PRN (02:26)
[2018-02-03 09:50] VITALS: BP 144/49
== END 2018-02-03 09:40 | disposition home or self-care (01) | DRG 291 ==
LOC: ED 09:58 → 2B-ACE 18:27
PROVIDERS: ADMIT Internal Medicine; ATTEND Internal Medicine
PROC: 5A1D70Z Performance of Urinary Filtration, Intermittent, Less than 6 Hours Per Day (ICD-10-PCS; principal; 2018-02-02)
DX: I13.2 Hypertensive heart and chronic kidney disease with heart failure and with stage 5 chronic kidney disease, or end stage renal disease (principal); N18.6 End stage renal disease; I50.43 Acute on chronic combined systolic (congestive) and diastolic (congestive) heart failure; Z99.2 Dependence on renal dialysis; I50.9 Heart failure, unspecified; M10.9 Gout, unspecified; D63.1 Anemia in chronic kidney disease; E11.22 Type 2 diabetes mellitus with diabetic chronic kidney disease; K21.9 Gastro-esophageal reflux disease without esophagitis; G89.29 Other chronic pain; R07.89 Other chest pain; I25.10 Atherosclerotic heart disease of native coronary artery without angina pectoris; Z86.73 Personal history of transient ischemic attack (TIA), and cerebral infarction without residual deficits; Z91.14 Patient's other noncompliance with medication regimen; Z95.5 Presence of coronary angioplasty implant and graft
CPT/HCPCS: 36415; 71045; 71250; 80048; 80061; 84484; 85007; 85025; 93005; 93010; 96372; J0885; J2270; J2501; J7030

== ENCOUNTER 2018-02-08 10:00 | Inpatient (IN) | payer MEDICARE ==
[2018-02-08] MEDS ORDERED: ASPIRIN PO ONE (10:20)
[2018-02-08] MEDS ORDERED: NITRO-BID 2% TP ONE (10:33)
[2018-02-08] MEDS ORDERED: NITROSTAT SL ONE (10:33)
--- NOTE | 2018-02-08 10:36 | Emergency Department Report ---
ED General Adult HPI - General Chief complaint: Chest Pain Stated complaint: CHEST PAIN Time Seen by Provider: 02/08/18 10:27 Source: patient, EMS Mode of arrival: Stretcher Limitations: No Limitations - History of Present Illness Initial comments: 67-year-old female history of end-stage renal disease with history of noncompliance just discharged from hospital this month on the where she was admitted for chest pain evaluation. Presents today after missing her a.m. dialysis she is hemodialysis Sunday. Patient is here complaining of chest pain. On the previous discharge summary she was noted to have atypical chronic chest pain with chronic elevated troponin to 0.26 she is back today with persistent chest pain and missed dialysis and epigastric pain, no sob no calf pain, no other c/o, no tearing pain to the back -: Gradual, This morning Location: chest, abdomen Severity scale (0 -10): 3 Quality: burning, sharp Consistency: intermittent Associated Symptoms: denies other symptoms, chest pain. denies: diaphoresis, headaches, loss of appetite, malaise, nausea/vomiting, rash, seizure, syncope - Related Data Home Medications Medication Instructions Recorded Confirmed Last Taken Sennosides [Senna Lax] 8.6 mg PO DAILY PRN 09/27/17 02/01/18 2 Days Ago ~12/22/17 ISOSORBIDE MONOnitrate [Imdur ER] 30 mg PO QDAY 10/14/17 02/01/18 2 Days Ago ~12/22/17 Vit B Comp C/Folic Acid/Vit D3 1 each PO DAILY #0 11/05/17 02/01/18 2 Days Ago [Dialyvite 800 Plus D Wafer] ~12/22/17 Previous Rx's Medication Instructions Recorded Last Taken Type Carvedilol [Coreg] 12.5 mg PO BID #60 tablet 06/27/17 2 Days Ago Rx ~12/22/17 Clopidogrel [Plavix] 75 mg PO QDAY #30 tablet 06/27/17 2 Days Ago Rx ~12/22/17 Atorvastatin Calcium [Lipitor] 40 mg PO DAILY #30 tablet 11/06/17 2 Days Ago Rx ~12/22/17 Pantoprazole [Protonix TAB] 40 mg PO QDAY #30 tablet 11/20/17 2 Days Ago Rx ~12/22/17 Dicyclomine [Bentyl] 10 mg PO TID PRN #30 capsule 12/24/17 Unknown Rx Nitroglycerin [Nitrostat] 0.4 mg SL .Q5MIN PRN #30 tablet 12/24/17 Unknown Rx Ondansetron [Zofran ODT TAB] 4 mg PO Q8H PRN #30 tab.rapdis 12/24/17 Unknown Rx Allergies Allergy/AdvReac Type Severity Reaction Status Date / Time No Known Allergies Allergy Verified 10/21/17 05:14 ED Review of Systems ROS: Stated complaint: CHEST PAIN Other details as noted in HPI Comment: All other systems reviewed and negative Constitutional: malaise. denies: diaphoresis, fever Eyes: denies: eye discharge, vision change ENT: denies: dental pain, hearing loss, epistaxis Respiratory: denies: cough, shortness of breath, SOB with exertion, SOB at rest , stridor Cardiovascular: chest pain, edema. denies: palpitations, dyspnea on exertion, orthopnea, syncope Gastrointestinal: abdominal pain. denies: nausea, vomiting, diarrhea, constipation, hematemesis, melena, hematochezia Neurological: denies: headache, weakness, numbness, paresthesias, confusion, abnormal gait, vertigo ED Past Medical Hx - Past Medical History Hx Hypertension: Yes Hx CVA: Yes (x 2) Hx Heart Attack/AMI: No Hx Congestive Heart Failure: Yes Hx Diabetes: No Hx Deep Vein Thrombosis: No Hx GERD: No Hx Liver Disease: No Hx Renal Disease: Yes (Dialysis MWF) Hx Sickle Cell Disease: No Hx Arthritis: Yes Hx Headaches / Migraines: No Hx Seizures: No Hx Kidney Stones: No Hx Asthma: No Hx COPD: No Hx Tuberculosis: No Hx Dementia: No Hx HIV: No Additional medical history: enlarged heart, gout, [facility] CORONARY ANGIOGRAPHY [facility] 08/06/2017-NONOBSTRUCTING HEART PER DR GIDEON BENOIT, dialysis - Surgical History Hx Coronary Stent: Yes Hx Open Heart Surgery: No Hx Pacemaker: No Hx Internal Defibrillator: No Hx Cholecystectomy: No Hx Appendectomy: No Hx Breast Surgery: No Additional Surgical History: tubal ligation, vas cath. LUE fistula. cardiac workup includes a stress test on 12/21/2016 that was unremarkable. Patient status post PCI of RCA with subsequent subacute thrombus of the proximal RCA stent and angioplasty with resolution of thrombosis on November 2016. AICD placement Aug 2017. PCI 03/22/17 of RCA. 05/01/17 neg Lexiscan stress - Social History Smoking Status: Unknown if ever smoked Substance Use Type: None - Medications Home Medications: Home Medications Medication Instructions Recorded Confirmed Last Taken Type Carvedilol [Coreg] 12.5 mg PO BID #60 tablet 06/27/17 02/01/18 2 Days Ago Rx ~12/22/17 Clopidogrel [Plavix] 75 mg PO QDAY #30 tablet 06/27/17 02/01/18 2 Days Ago Rx ~12/22/17 Sennosides [Senna Lax] 8.6 mg PO DAILY PRN 09/27/17 02/01/18 2 Days Ago History ~12/22/17 ISOSORBIDE MONOnitrate [Imdur ER] 30 mg PO QDAY 10/14/17 02/01/18 2 Days Ago History ~12/22/17 Vit B Comp C/Folic Acid/Vit D3 1 each PO DAILY #0 11/05/17 02/01/18 2 Days Ago History [Dialyvite 800 Plus D Wafer] ~12/22/17 Atorvastatin Calcium [Lipitor] 40 mg PO DAILY #30 tablet 11/06/17 02/01/18 2 Days Ago Rx ~12/22/17 Pantoprazole [Protonix TAB] 40 mg PO QDAY #30 tablet 11/20/17 02/01/18 2 Days Ago Rx ~12/22/17 Dicyclomine [Bentyl] 10 mg PO TID PRN #30 capsule 12/24/17 02/01/18 Unknown Rx Nitroglycerin [Nitrostat] 0.4 mg SL .Q5MIN PRN #30 tablet 12/24/17 02/01/18 Unknown Rx Ondansetron [Zofran ODT TAB] 4 mg PO Q8H PRN #30 tab.rapdis 12/24/17 02/01/18 Unknown Rx ED Physical Exam - General Limitations: No Limitations General appearance: alert, in no apparent distress, anxious - Head Head exam: Present: atraumatic, normocephalic - Eye Eye exam: Present: PERRL, EOMI - ENT ENT exam: Present: normal exam, normal orophraynx - Neck Neck exam: Present: normal inspection. Absent: tenderness, meningismus - Respiratory Respiratory exam: Present: rhonchi. Absent: accessory muscle use - Cardiovascular Cardiovascular Exam: Present: regular rate, normal rhythm - GI/Abdominal GI/Abdominal exam: Present: soft, tenderness, other (mild epigastric tenderness to deep palpation). Absent: distended, guarding, rebound, mass, pulsatile mass - Extremities Exam Extremities exam: Present: pedal edema. Absent: calf tenderness - Back Exam Back exam: Present: normal inspection. Absent: CVA tenderness (L), muscle spasm , paraspinal tenderness, vertebral tenderness - Neurological Exam Neurological exam: Present: alert, oriented X3, CN II-XII intact. Absent: motor sensory deficit - Psychiatric Psychiatric exam: Present: anxious - Skin Skin exam: Absent: urticaria, vesicles, petechiae ED Course Vital Signs 02/08/18 02/08/18 10:18 11:33 Temperature 98.2 F Pulse Rate 87 87 Respiratory 18 Rate Blood Pressure 147/71 151/69 O2 Sat by Pulse 99 Oximetry ED Medical Decision Making - Lab Data Result diagrams: 02/08/18 10:28 02/08/18 10:24 - EKG Data -: EKG Interpreted by Ar EKG shows normal: sinus rhythm - EKG Data When compared to previous EKG there are: no significant change Interpretation: other (EKG shows sinus rhythm at a rate of 86 with no acute ischemic change with LVH with strain with occasional PVC) - Radiology Data Radiology results: report reviewed - Medical Decision Making Case was discussed with Dr. triplett who will admit for dialysis patient does get it Sunday missed this am, case was also discussed with Dr. Deluca will evaluate for further evaluation of her chest pain although it does appear to be chronic atypical no signs of ACS at this time. Given previous abdominal surgery with intermittent epigastric pain and tenderness we did elect to get CT abdomen and pelvis which is pending at this time Dr. Rooney will further evaluate. Patient to be admitted for further evaluation and dialysis Critical care attestation.: If time is entered above; I have spent that time in minutes in the direct care of this critically ill patient, excluding procedure time. ED Disposition Clinical Impression: Chest pain, ESRD (end stage renal disease) on dialysis, Elevated troponin, Acute hyperkalemia, Abdominal pain Disposition: OP ADMIT IP TO THIS HOSP Is pt being admited?: Yes Condition: Stable Instructions: Chest Pain (ED) Time of Disposition: 11:40
[2018-02-08] MEDS ORDERED: ZOFRAN IV ONE (10:37)
[2018-02-08] MEDS ORDERED: MORPHINE IV ONE (10:37)
[2018-02-08 10:48] LABS: Basophils % (Auto) 0.4 % (0.0-1.8); Eosinophils # (Auto) 0.1 K/mm3 (0.0-0.4); Eosinophils % (Auto) 2.1 % (0.0-4.3); Hematocrit 27.2 % (30.3-42.9); Hemoglobin 8.7 gm/dl (10.1-14.3); Lymphocytes # (Auto) 0.7 K/mm3 (1.2-5.4); Lymphocytes % (Auto) 14.8 % (13.4-35.0); Mean Corpuscular HGB Conc 32 % (30-34); Mean Corpuscular Hemoglobin 30 pg (28-32); Mean Corpuscular Volume 93 fl (79-97); Monocytes # (Auto) 0.8 K/mm3 (0.0-0.8); Platelet Count 339 K/mm3 (140-440); Red Blood Count 2.92 M/mm3 (3.65-5.03)
[2018-02-08 10:54] LABS: Red Cell Distribution Width 23.2 % (13.2-15.2)
[2018-02-08 10:59] LABS: Calcium 9.4 mg/dL (8.4-10.2)
[2018-02-08] MEDS ORDERED: NACL 0.9% 100 ML IV PRN (14:04)
[2018-02-08 14:21] LABS: Chol/HDL Ratio 2.49 %
[2018-02-08] MEDS: TORADOL IV PRN ×2 (15:54→22:38)
--- NOTE | 2018-02-08 15:55 | Consultation ---
History of Present Illness - Reason for Consult Consult date: 02/08/18 end stage renal disease Requesting physician: ROXANNE BOND - History of Present Illness 67-year-old lady with a history of diabetes mellitus, hypertension and end- stage renal disease on hemodialysis on a Sunday, Sunday and Sunday schedule. Patient has had numerous hospitalizations with uncontrolled hypertension, chest pain and hyperkalemia secondary to missed dialysis. She has had extensive cardiac work up and she does have coronary disease. She has had percutaneous Coronary intervention in the past. Presents now because once again she went to dialysis and on getting there complained of chest pain and epigastric pain radiating to her back. It was tearing but now it's a pressure. This is associated with shortness of breath but no nausea, vomiting, dizziness or diaphoresis. She admits to cough which is productive of whitish sputum. No hemoptysis or wheezing. Patient missed her dialysis today as she was sent to the emergency room for evaluation Past History Past Medical History: CAD, diabetes, ESRD, heart failure, hypertension, hyperlipidemia, other (severe pulmonary hypertension, ischemic cardiomyopathy) Past Surgical History: appendectomy, PTCA, Other (tubal ligation, AV fistula creation for dialysis, ICD implantation) Social history: single, lives with family (son), smoking. denies: alcohol abuse , prescription drug abuse, IV drug use Family history: CAD, hypertension Medications and Allergies Allergies Allergy/AdvReac Type Severity Reaction Status Date / Time No Known Allergies Allergy Verified 10/21/17 05:14 Home Medications Medication Instructions Recorded Confirmed Last Taken Type Carvedilol [Coreg] 12.5 mg PO BID #60 tablet 06/27/17 02/08/18 02/07/18 Rx Clopidogrel [Plavix] 75 mg PO QDAY #30 tablet 06/27/17 02/08/18 02/07/18 Rx Sennosides [Senna Lax] 8.6 mg PO DAILY PRN 09/27/17 02/08/18 02/07/18 History ISOSORBIDE MONOnitrate [Imdur ER] 30 mg PO QDAY 10/14/17 02/08/18 02/07/18 History Vit B Comp C/Folic Acid/Vit D3 1 each PO DAILY #0 11/05/17 02/08/18 02/07/18 History [Dialyvite 800 Plus D Wafer] Atorvastatin Calcium [Lipitor] 40 mg PO DAILY #30 tablet 11/06/17 02/08/1802/07 Rx Pantoprazole [Protonix TAB] 40 mg PO QDAY #30 tablet 11/20/17 02/08/18 02/07/18 Rx Dicyclomine [Bentyl] 10 mg PO TID PRN #30 capsule 12/24/17 02/08/18 02/07/18 Rx Nitroglycerin [Nitrostat] 0.4 mg SL .Q5MIN PRN #30 tablet 12/24/17 02/08/18 Rx Ondansetron [Zofran ODT TAB] 4 mg PO Q8H PRN #30 tab.rapdis 12/24/17 02/08/18 Rx Active Meds: Active Medications Sodium Chloride (Nacl 0.9%) 100 mls @ 999 mls/hr IV JOAN PRN PRN Reason: Hypotension Ketorolac Tromethamine (Toradol) 15 mg IV Q6H PRN PRN Reason: Pain Stop: 02/13/18 14:13 Review of Systems All systems: negative (Constitutional: no fever or chills. No anorexia or weight loss. HEENT: No sore throat or sinus drainage no hearing or vision impairment . Cardiovascular: See history of present illness. Respiratory: Admits to cough productive of whitish sputum. No shortness of breath, hemoptysis or wheezing. Gastrointestinal: No nausea, vomiting, diarrhea, admits to abdominal pain but no hematemesis or melena. Genitourinary: No frequency urgency dysuria or hematuria. hematologic: No abnormal bleeding but she admits to easy bruising. Integumentary: She admits "itching but no rash. Neurological: She admits to headaches no focal weakness or numbness, no syncope or seizures. Musculoskeletal: No joint pains no stiffness. Psychiatry: no anxiety or depression) Exam - Vital Signs Vital signs: Vital Signs Temp Pulse Resp BP Pulse Ox 98.2 F 87 18 147/71 99 02/08/18 10:18 02/08/18 10:18 02/08/18 10:18 02/08/18 10:02/08/18 10:18 - Physical Exam Narrative exam: Middle-aged [place] female lying in bed in no acute distress HEENT: NCAT, pink oral mucous membrane Neck: Supple, no venous distention CVS: S1S2 RRR with no murmur, rub or gallop Chest: Clear to auscultation Abdomen: Protuberant, soft, nontender, no organomegaly, bowel sounds are present Extremities: No edema Skin warm and dry Genitourinary deferred Neuro: Awake, alert no focal deficits Results - Lab Results 02/08/18 10:28 02/08/18 10:24 Most recent lab results Calcium 9.4 mg/dL (8.4-10.2) 02/08/18 10:24 Assessment and Plan - Patient Problems (1) Acute chest pain Current Visit: No Status: Acute Plan to address problem: Chest pain in a patient with history of coronary disease with atypical description. Cardiology evaluation (2) Abdominal pain Current Visit: No Status: Acute Plan to address problem: Resume PPI and reevaluate (3) Type 2 diabetes mellitus with diabetic nephropathy Current Visit: Yes Status: Acute Plan to address problem: Blood sugar management by primary attending (4) ESRD (end stage renal disease) on dialysis Current Visit: Yes Status: Chronic Plan to address problem: Hemodialysis today and then continue on a Sunday, Sunday and Sunday schedule. Dialyze on a 2K bath. Follow-up electrolytes (5) Anemia in chronic kidney disease Current Visit: No Status: Acute Plan to address problem: Give Erythropoetin on dialysis (6) Chronic systolic heart failure Current Visit: No Status: Acute Plan to address problem: Continue fluid removal on dialysis. Continue beta nikolas (7) Hypertensive chronic kidney disease with stage 5 chronic kidney disease or end stage renal disease Current Visit: No Status: Acute Plan to address problem: Follow-up blood pressure on current medications
[2018-02-08] MEDS ORDERED: NACL 0.9 (PRIMING MACHINE ONLY DIALYSIS) MC ONE (18:38)
[2018-02-08] MEDS ORDERED: TORADOL IV PRN (20:56)
--- NOTE | 2018-02-08 22:39 | History and Physical Report ---
History of Present Illness Date of examination: 02/08/18 Date of admission: 02/08/18 14:18 Chief complaint: Chief complaint: Left-sided chest pain Since a.m. History of present illness: History of Present Illness History of present illness: This is a 67-year-old female who presents to the emergency department with chief complaint of chest pain. Patient with recent admission and discharge on for same complaints of chest pain. Patient with cardiac catheterization in April of this year which revealed moderate LV dysfunction and EF of 35-40% with no significant coronary lesions with patent stents in the ostial and mid RCA. Also, [facility] 07/27/2017 at [place], nonobstructive coronary artery disease, LVEF 25%, patent RCA. Patient denies any other complaints. No nausea, vomiting or abdominal pain. Patient does have elevated troponin, which I suspect is chronic. No fever or chills. No cough, cold-like symptoms. Patient apparently had a recent cath and a stent in the [facility] . Past History Past Medical History: anemia, ESRD, hypertension, hyperlipidemia, other (NSVT, Randolph's esophagitis) Social history: smoking Family history: no significant family history Medications and Allergies Allergies Allergy/AdvReac Type Severity Reaction Status Date / Time No Known Allergies Allergy Verified 08/25/17 22:07 Home Medications Medication Instructions Recorded Confirmed Last Taken Type Aspirin EC [Aspirin Enteric Coated 81 mg PO QDAY #30 tablet 06/27/17 09/02/17 Rx TAB] AtorvaSTATin [Lipitor] 80 mg PO QHS #30 tablet 06/27/17 09/02/17 09/02/17 Rx Carvedilol [Coreg] 12.5 mg PO BID #60 tablet 06/27/17 09/02/17 09/02/17 Rx Clopidogrel [Plavix] 75 mg PO QDAY #30 tablet 06/27/17 09/02/17 09/02/17 Rx ISOSORBIDE MONOnitrate [Imdur ER] 30 mg PO QDAY #30 tablet 06/27/17 09/02/17 Rx Lisinopril [Zestril TAB] 20 mg PO QDAY #30 tablet 06/27/17 09/02/17 09/02/17 Rx Dicyclomine [Bentyl] 10 mg PO TID PRN #30 capsule 08/03/17 09/02/17 09/02/17 Rx Pantoprazole [Protonix TAB] 40 mg PO QDAY #30 tablet 08/03/17 09/02/17 09/02/17 Rx Review of Systems All systems: negative except chest pain Medications and Allergies Allergies Allergy/AdvReac Type Severity Reaction Status Date / Time No Known Allergies Allergy Verified 10/21/17 05:14 Home Medications Medication Instructions Recorded Confirmed Last Taken Type Carvedilol [Coreg] 12.5 mg PO BID #60 tablet 06/27/17 11/05/17 10/11/17 Rx Clopidogrel [Plavix] 75 mg PO QDAY #30 tablet 06/27/17 11/05/17 10/11/17 Rx Dicyclomine [Bentyl] 10 mg PO TID PRN #30 capsule 09/13/17 11/05/17 10/11/17 Rx Cinacalcet [Sensipar] 60 mg PO QDAY 09/27/17 11/05/17 10/11/17 History Sennosides [Senna Lax] 8.6 mg PO DAILY PRN 09/27/17 11/05/17 10/11/17 History ISOSORBIDE MONOnitrate [Imdur ER] 30 mg PO QDAY 10/14/17 11/05/17 Unknown History oxyCODONE /ACETAMINOPHEN [Percocet 1 tab PO QHS PRN #7 tablet 10/16/17 11/05/17 Unknown Rx 5/325 mg] Carvedilol 12.5 mg PO BID 11/05/17 11/05/17 Unknown History Cephalexin [Keflex] 250 mg PO Q6HR 11/05/17 11/05/17 Unknown History Cinacalcet [Sensipar] 30 mg PO DAILY 11/05/17 11/05/17 Unknown History Clopidogrel Bisulfate [Clopidogrel] 75 mg PO DAILY 11/05/17 11/05/17 Unknown History Dialyvite 800 Plus D Wafer 800 mg PO DAILY 11/05/17 11/05/17 Unknown History Doxycycline Hyclate [Doxycycline 100 mg PO Q12HR 11/05/17 11/05/17 Unknown History Hyclate TAB] ISOSORBIDE MONOnitrate [Imdur ER] 30 mg PO DAILY 11/05/17 11/05/17 Unknown History Pantoprazole Sodium 40 mg PO DAILY 11/05/17 11/05/17 Unknown History metroNIDAZOLE [Metronidazole] 500 mg PO Q8HR 11/05/17 11/05/17 Unknown History Past History Past Medical History: CAD, diabetes, ESRD, heart failure, hypertension, hyperlipidemia, other (severe pulmonary hypertension, ischemic cardiomyopathy) Past Surgical History: appendectomy, PTCA, Other (tubal ligation, AV fistula creation for dialysis, ICD implantation) Social history: single, lives with family (son), smoking. denies: alcohol abuse , prescription drug abuse, IV drug use Family history: CAD, hypertension Medications and Allergies Allergies Allergy/AdvReac Type Severity Reaction Status Date / Time No Known Allergies Allergy Verified 10/21/17 05:14 Home Medications Medication Instructions Recorded Confirmed Last Taken Type Carvedilol [Coreg] 12.5 mg PO BID #60 tablet 06/27/17 02/08/18 02/07/18 Rx Clopidogrel [Plavix] 75 mg PO QDAY #30 tablet 06/27/17 02/08/18 02/07/18 Rx Sennosides [Senna Lax] 8.6 mg PO DAILY PRN 09/27/17 02/08/18 02/07/18 History ISOSORBIDE MONOnitrate [Imdur ER] 30 mg PO QDAY 10/14/17 02/08/18 02/07/18 History Vit B Comp C/Folic Acid/Vit D3 1 each PO DAILY #0 11/05/17 02/08/18 02/07/18 History [Dialyvite 800 Plus D Wafer] Atorvastatin Calcium [Lipitor] 40 mg PO DAILY #30 tablet 11/06/17 02/08/1802/07 Rx Pantoprazole [Protonix TAB] 40 mg PO QDAY #30 tablet 11/20/17 02/08/18 02/07/18 Rx Dicyclomine [Bentyl] 10 mg PO TID PRN #30 capsule 12/24/17 02/08/18 02/07/18 Rx Nitroglycerin [Nitrostat] 0.4 mg SL .Q5MIN PRN #30 tablet 12/24/17 02/08/18 Rx Ondansetron [Zofran ODT TAB] 4 mg PO Q8H PRN #30 tab.rapdis 12/24/17 02/08/18 Rx Active Meds: Active Medications Sodium Chloride (Nacl 0.9%) 100 mls @ 999 mls/hr IV OJAN PRN PRN Reason: Hypotension Ketorolac Tromethamine (Toradol) 15 mg IV Q6H PRN PRN Reason: Pain Stop: 02/13/18 14:13 Last Admin: 02/08/18 15:54 Dose: 15 mg Exam - Constitutional Vitals: Temp Pulse Resp BP Pulse Ox 98.8 F 83 18 139/49 98 02/08/18 21:33 02/08/18 21:33 02/08/18 21:33 02/08/18 21:33 02/08/18 21:33 Results - Labs CBC & Chem 7: 02/08/18 10:28 02/08/18 10:24 Labs: Laboratory Last Values WBC 4.9 K/mm3 (4.5-11.0) 02/08/18 10:28 RBC 2.92 M/mm3 (3.65-5.03) L 02/08/18 10:28 Hgb 8.7 gm/dl (10.1-14.3) L 02/08/18 10:28 Hct 27.2 % (30.3-42.9) L 02/08/18 10:28 MCV 93 fl (79-97) 02/08/18 10:28 MCH 30 pg (28-32) 02/08/18 10:28 MCHC 32 % (30-34) 02/08/18 10:28 RDW 23.2 % (13.2-15.2) H 02/08/18 10:28 Plt Count 339 K/mm3 (140-440) 02/08/18 10:28 Lymph % (Auto) 14.8 % (13.4-35.0) 02/08/18 10:28 Cloud % (Auto) 16.0 % (0.0-7.3) H 02/08/18 10:28 Eos % (Auto) 2.1 % (0.0-4.3) 02/08/18 10:28 Baso % (Auto) 0.4 % (0.0-1.8) 02/08/18 10:28 Lymph # 0.7 K/mm3 (1.2-5.4) L 02/08/18 10:28 Cloud # 0.8 K/mm3 (0.0-0.8) 02/08/18 10:28 Eos # 0.1 K/mm3 (0.0-0.4) 02/08/18 10:28 Baso # 0.0 K/mm3 (0.0-0.1) 02/08/18 10:28 Seg Neutrophils % 66.7 % (40.0-70.0) 02/08/18 10:28 Seg Neutrophils # 3.3 K/mm3 (1.8-7.7) 02/08/18 10:28 Sodium 138 mmol/L (137-145) 02/08/18 10:24 Potassium 5.0 mmol/L (3.6-5.0) 02/08/18 10:24 Chloride 89.9 mmol/L (98-107) L 02/08/18 10:24 Carbon Dioxide 42 mmol/L (22-30) H* 02/08/18 10:24 Anion Gap 11 mmol/L 02/08/18 10:24 BUN 85 mg/dL (7-17) H 02/08/18 10:24 Creatinine 9.9 mg/dL (0.7-1.2) H 02/08/18 10:24 Estimated GFR 5 ml/min 02/08/18 10:24 BUN/Creatinine Ratio 9 % 02/08/18 10:24 Glucose 84 mg/dL (65-100) 02/08/18 10:24 Calcium 9.4 mg/dL (8.4-10.2) 02/08/18 10:24 Troponin T 0.950 ng/mL (0.00-0.029) H* 02/08/18 18:26 Triglycerides 58 mg/dL (2-149) 02/08/18 13:20 Cholesterol 147 mg/dL (50-199) 02/08/18 13:20 LDL Cholesterol Direct 80 mg/dL (50-130) 02/08/18 13:20 HDL Cholesterol 59 mg/dL (40-59) 02/08/18 13:20 Cholesterol/HDL Ratio 2.49 % 02/08/18 13:20 Assessment and Plan Assessment and plan: Assessment and Plan Advance Directives: Yes VTE prophylaxis?: Chemical Plan of care discussed with patient/family: Yes - Patient Problems (1) Unstable angina Current Visit: Yes Status: Acute Plan to address problem: Patient has his recurrent symptoms in spite of multiple stents and multiple caths. Serial cardiac enzymes. Lexiscan not ordered. Will defer to cardiology. (2) Hyperkalemia Current Visit: Yes Status: Acute Plan to address problem: Calcium gluconate IV and bicarbonate IV and Kayexalate given (3) End-stage renal disease needing dialysis Current Visit: Yes Status: Chronic Plan to address problem: Continue dialysis as per schedule (4) Hypertension Current Visit: Yes Status: Chronic Qualifiers: Hypertension type: essential hypertension Qualified Code(s): I10 - Essential (primary) hypertension Plan to address problem: Continue antihypertensives (5) Hyperlipidemia Current Visit: Yes Status: Chronic Qualifiers: Hyperlipidemia type: mixed hyperlipidemia Qualified Code(s): E78.2 - Mixed hyperlipidemia Plan to address problem: Continue statins (6) Gastroesophageal reflux disease Current Visit: Yes Status: Chronic Qualifiers: Esophagitis presence: without esophagitis Qualified Code(s): K21.9 - Gastro -esophageal reflux disease without esophagitis Plan to address problem: Continue Protonix (7) DVT prophylaxis Current Visit: Yes Status: Acute Plan to address problem: Continue heparin Advance Directives: Yes (full code) Plan of care discussed with patient/family: Yes
[2018-02-08] MEDS ORDERED: ZOFRAN ODT PO PRN (22:42)
[2018-02-08] MEDS ORDERED: ZOFRAN IV PRN (22:48)
[2018-02-08] MEDS ORDERED: TYLENOL PO PRN (22:48)
[2018-02-08] MEDS: COREG PO SCH (23:55)
[2018-02-09] MEDS: TORADOL IV PRN ×5 (02:56→22:32)
[2018-02-09] MEDS: NITROSTAT SL PRN ×2 (05:42→22:32)
[2018-02-09 06:09] LABS: Basophils % (Auto) 0.6 % (0.0-1.8); Eosinophils # (Auto) 0.1 K/mm3 (0.0-0.4); Eosinophils % (Auto) 2.6 % (0.0-4.3); Hematocrit 26.1 % (30.3-42.9); Hemoglobin 8.7 gm/dl (10.1-14.3); Lymphocytes # (Auto) 0.7 K/mm3 (1.2-5.4); Lymphocytes % (Auto) 12.6 % (13.4-35.0); Mean Corpuscular HGB Conc 33 % (30-34); Mean Corpuscular Hemoglobin 31 pg (28-32); Mean Corpuscular Volume 93 fl (79-97); Monocytes # (Auto) 0.9 K/mm3 (0.0-0.8); Monocytes % (Auto) 15.7 % (0.0-7.3); Platelet Count 317 K/mm3 (140-440); Red Blood Count 2.81 M/mm3 (3.65-5.03)
[2018-02-09 06:11] LABS: Red Cell Distribution Width 23.5 % (13.2-15.2)
[2018-02-09 06:26] LABS: Albumin 3.4 g/dL (3.9-5); Calcium 9.6 mg/dL (8.4-10.2)
[2018-02-09] MEDS ORDERED: NON-FORMULARY (Vit B Comp C/Folic Acid/Vit D3 [Dialyvite 800 Plus D Wafer] 1 EACH) PO SCH (10:00)
[2018-02-09] MEDS: IMDUR PO SCH (11:06)
[2018-02-09] MEDS: PLAVIX PO SCH (11:07)
[2018-02-09] MEDS: COREG PO SCH ×2 (11:07→22:31)
[2018-02-09] MEDS: Renal Caps PO SCH (11:08)
[2018-02-09] MEDS: PROTONIX PO SCH (11:08)
[2018-02-09] MEDS: SODIUM CHLORIDE FLUSH SYRINGE 10 ML IV SCH ×2 (11:08→22:32)
--- NOTE | 2018-02-09 11:10 | Progress Note ---
Assessment and Plan Assessment and plan: Ms. Molina is a 67 yo woman with a plethora of co-morbidities and frequent hospitalizations, most centered around missed dialysis sessions and chest pains. She pw chest pains to the hemodialysis center and was sent to ED wo hemodialysis session. She was recently discharged with chest pains. I spoke with Core Inspector Dr. Newton who knows her well. He will investigate this chest pains. [employer] PACs system is down, no imaging in EMR -Chest pains, angina: d/w Cardiology, treat with nitro -ESRD: consulted Nephrology -Hyperkalemia, missed dialysis due to chest pains History Interval history: Patient was seen and examined. Follow-up on current diagnosis of chest pains. Overnight uneventful. Patient denies any nausea/vomiting or severe headaches. Imaging, nursing note, chart, labs and old chart reviewed. Discussed with patient. She still has diffuse chest pains with sob Hospitalist Physical - Constitutional Vitals: Temp Pulse Resp BP Pulse Ox 97.8 F 100 H 20 142/65 99 02/09/18 07:31 02/09/18 07:31 02/09/18 07:31 02/09/18 07:31 02/09/18 07:31 Results - Labs CBC & Chem 7: 02/09/18 05:26 02/09/18 05:26 Labs: Laboratory Last Values WBC 5.6 K/mm3 (4.5-11.0) 02/09/18 05:26 RBC 2.81 M/mm3 (3.65-5.03) L 02/09/18 05:26 Hgb 8.7 gm/dl (10.1-14.3) L 02/09/18 05:26 Hct 26.1 % (30.3-42.9) L 02/09/18 05:26 MCV 93 fl (79-97) 02/09/18 05:26 MCH 31 pg (28-32) 02/09/18 05:26 MCHC 33 % (30-34) 02/09/18 05:26 RDW 23.5 % (13.2-15.2) H 02/09/18 05:26 Plt Count 317 K/mm3 (140-440) 02/09/18 05:26 Lymph % (Auto) 12.6 % (13.4-35.0) L 02/09/18 05:26 [place] % (Auto) 15.7 % (0.0-7.3) H 02/09/18 05:26 Eos % (Auto) 2.6 % (0.0-4.3) 02/09/18 05:26 Baso % (Auto) 0.6 % (0.0-1.8) 02/09/18 05:26 Lymph # 0.7 K/mm3 (1.2-5.4) L 02/09/18 05:26 [place] # 0.9 K/mm3 (0.0-0.8) H 02/09/18 05:26 Eos # 0.1 K/mm3 (0.0-0.4) 02/09/18 05:26 Baso # 0.0 K/mm3 (0.0-0.1) 02/09/18 05:26 Seg Neutrophils % 68.5 % (40.0-70.0) 02/09/18 05:26 Seg Neutrophils # 3.9 K/mm3 (1.8-7.7) 02/09/18 05:26 Sodium 144 mmol/L (137-145) 02/09/18 05:26 Potassium 5.2 mmol/L (3.6-5.0) H 02/09/18 05:26 Chloride 98.2 mmol/L (98-107) 02/09/18 05:26 Carbon Dioxide 30 mmol/L (22-30) D 02/09/18 05:26 Anion Gap 21 mmol/L 02/09/18 05:26 BUN 53 mg/dL (7-17) H 02/09/18 05:26 Creatinine 6.9 mg/dL (0.7-1.2) H 02/09/18 05:26 Estimated GFR 7 ml/min 02/09/18 05:26 BUN/Creatinine Ratio 8 % 02/09/18 05:26 Glucose 86 mg/dL (65-100) 02/09/18 05:26 Calcium 9.6 mg/dL (8.4-10.2) 02/09/18 05:26 Total Bilirubin 0.30 mg/dL (0.1-1.2) 02/09/18 05:26 AST 15 units/L (5-40) 02/09/18 05:26 ALT 15 units/L (7-56) 02/09/18 05:26 Alkaline Phosphatase 122 units/L (35-129) 02/09/18 05:26 Troponin T 0.950 ng/mL (0.00-0.029) H* 02/08/18 18:26 Total Protein 6.2 g/dL (6.3-8.2) L 02/09/18 05:26 Albumin 3.4 g/dL (3.9-5) L 02/09/18 05:26 Albumin/Globulin Ratio 1.2 % 02/09/18 05:26 Triglycerides 58 mg/dL (2-149) 02/08/18 13:20 Cholesterol 147 mg/dL (50-199) 02/08/18 13:20 LDL Cholesterol Direct 80 mg/dL (50-130) 02/08/18 13:20 HDL Cholesterol 59 mg/dL (40-59) 02/08/18 13:20 Cholesterol/HDL Ratio 2.49 % 02/08/18 13:20
--- NOTE | 2018-02-09 13:18 | Consultation ---
History of Present Illness Consult date: 02/09/18 Consult reason: abnormal cardiac enzymes, chest pain Past History Past Medical History: CAD, diabetes, ESRD, heart failure, hypertension, hyperlipidemia, other (severe pulmonary hypertension, ischemic cardiomyopathy) Past Surgical History: appendectomy, PTCA, Other (tubal ligation, AV fistula creation for dialysis, ICD implantation) Social history: single, lives with family (son), smoking. denies: alcohol abuse , prescription drug abuse, IV drug use Family history: CAD, hypertension Medications and Allergies Allergies Allergy/AdvReac Type Severity Reaction Status Date / Time No Known Allergies Allergy Verified 10/21/17 05:14 Home Medications Medication Instructions Recorded Confirmed Last Taken Type Carvedilol [Coreg] 12.5 mg PO BID #60 tablet 06/27/17 02/08/18 02/07/18 Rx Clopidogrel [Plavix] 75 mg PO QDAY #30 tablet 06/27/17 02/08/18 02/07/18 Rx Sennosides [Senna Lax] 8.6 mg PO DAILY PRN 09/27/17 02/08/18 02/07/18 History ISOSORBIDE MONOnitrate [Imdur ER] 30 mg PO QDAY 10/14/17 02/08/18 02/07/18 History Vit B Comp C/Folic Acid/Vit D3 1 each PO DAILY #0 11/05/17 02/08/18 02/07/18 History [Dialyvite 800 Plus D Wafer] Atorvastatin Calcium [Lipitor] 40 mg PO DAILY #30 tablet 11/06/17 02/08/1802/07 Rx Pantoprazole [Protonix TAB] 40 mg PO QDAY #30 tablet 11/20/17 02/08/18 02/07/18 Rx Dicyclomine [Bentyl] 10 mg PO TID PRN #30 capsule 12/24/17 02/08/18 02/07/18 Rx Nitroglycerin [Nitrostat] 0.4 mg SL .Q5MIN PRN #30 tablet 12/24/17 02/08/18 Rx Ondansetron [Zofran ODT TAB] 4 mg PO Q8H PRN #30 tab.rapdis 12/24/17 02/08/18 Rx Active Meds: Active Medications Acetaminophen (Tylenol) 650 mg PO Q4H PRN PRN Reason: Pain MILD(1-3)/Fever >100.5/SANCHEZ Atorvastatin Calcium (Lipitor) 40 mg PO DAILY [facility] Last Admin: 02/09/18 11:08 Dose: 40 mg Carvedilol (Coreg) 12.5 mg PO BID [facility] Last Admin: 02/09/18 11:07 Dose: 12.5 mg Clopidogrel Bisulfate (Plavix) 75 mg PO QDAY [facility] Last Admin: 02/09/18 11:07 Dose: 75 mg Dicyclomine HCl (Bentyl) 10 mg PO TID PRN PRN Reason: Pain Sodium Chloride (Nacl 0.9%) 100 mls @ 999 mls/hr IV JOAN PRN PRN Reason: Hypotension Isosorbide Mononitrate (Imdur) 30 mg PO QDAY [facility] Last Admin: 02/09/18 11:06 Dose: 30 mg Ketorolac Tromethamine (Toradol) 15 mg IV Q4H PRN PRN Reason: Pain Stop: 02/13/18 14:13 Last Admin: 02/09/18 06:55 Dose: 15 mg Multivit/Ca Carb/B Cmplx/FA/Prenat (Renal Caps) 1 cap PO QDAY [facility] Last Admin: 02/09/18 11:08 Dose: 1 cap Nitroglycerin (Nitrostat) 0.4 mg SL .Q5MIN PRN PRN Reason: Chest Pain Last Admin: 02/09/18 05:42 Dose: 0.4 mg Ondansetron HCl (Zofran Odt) 4 mg PO Q8H PRN PRN Reason: Nausea And Vomiting Ondansetron HCl (Zofran) 4 mg IV Q8H PRN PRN Reason: Nausea And Vomiting Pantoprazole Sodium (Protonix) 40 mg PO QDAY [facility] Last Admin: 02/09/18 11:08 Dose: 40 mg Senna (Senokot) 8.6 mg PO DAILY PRN PRN Reason: Constipation Sodium Chloride (Sodium Chloride Flush Syringe 10 Ml) 10 ml IV BID [facility] Last Admin: 02/09/18 11:08 Dose: 10 ml Sodium Chloride (Sodium Chloride Flush Syringe 10 Ml) 10 ml IV PRN PRN PRN Reason: LINE FLUSH Physical Examination Vital Signs Temp Pulse Resp BP Pulse Ox 98.2 F 87 18 147/71 99 02/08/18 10:18 05/25/18 10:18 02/08/18 10:18 02/08/18 10:18 02/08/18 10:18 General appearance: no acute distress HEENT: Positive: PERRL Cardiac: Positive: Reg Rate and Rhythm, S3, S4 Lungs: Positive: Decreased Breath Sounds Neuro: Positive: Grossly Intact Abdomen: Positive: Unremarkable Skin: Positive: Clear. Negative: Rash Extremities: Absent: edema Results 02/09/18 05:26 02/09/18 05: Cardiac Enzymes 02/08/18 02/08/18 02/08/18 Range/Units 10:24 10:28 13:20 WBC 4.9 (4.5-11.0) K/mm3 RBC 2.92 L (3.65-5.03) M/mm3 Hgb 8.7 L (10.1-14.3) gm/dl Hct 27.2 L (30.3-42.9) % MCV 93 (79-97) fl MCH 30 (28-32) pg MCHC 32 (30-34) % RDW 23.2 H (13.2-15.2) % Plt Count 339 (140-440) K/mm3 Lymph % (Auto) 14.8 (13.4-35.0) % [place] % (Auto) 16.0 H (0.0-7.3) % Eos % (Auto) 2.1 (0.0-4.3) % Baso % (Auto) 0.4 (0.0-1.8) % Lymph # 0.7 L (1.2-5.4) K/mm3 [place] # 0.8 (0.0-0.8) K/mm3 Eos # 0.1 (0.0-0.4) K/mm3 Baso # 0.0 (0.0-0.1) K/mm3 Seg Neutrophils % 66.7 (40.0-70.0) % Seg Neutrophils # 3.3 (1.8-7.7) K/mm3 Sodium 138 (137-145) mmol/L Potassium 5.0 (3.6-5.0) mmol/L Chloride 89.9 L (98-107) mmol/L Carbon Dioxide 42 H* (22-30) mmol/L Anion Gap 11 mmol/L BUN 85 H (7-17) mg/dL Creatinine 9.9 H (0.7-1.2) mg/dL Estimated GFR 5 ml/min BUN/Creatinine Ratio 9 % Glucose 84 (65-100) mg/dL Calcium 9.4 (8.4-10.2) mg/dL Total Bilirubin (0.1-1.2) mg/dL AST (5-40) units/L ALT (7-56) units/L Alkaline Phosphatase (35-129) units/L Troponin T 0.760 H* 0.822 H* (0.00-0.029) ng/mL Total Protein (6.3-8.2) g/dL Albumin (3.9-5) g/dL Albumin/Globulin Ratio % Triglycerides 58 (2-149) mg/dL Cholesterol 147 (50-199) mg/dL LDL Cholesterol Direct 80 (50-130) mg/dL HDL Cholesterol 59 (40-59) mg/dL Cholesterol/HDL Ratio 2.49 % 02/08/18 02/09/18 02/09/18 Range/Units 18:26 05:26 05:26 WBC 5.6 (4.5-11.0) K/mm3 RBC 2.81 L (3.65-5.03) M/mm3 Hgb 8.7 L (10.1-14.3) gm/dl Hct 26.1 L (30.3-42.9) % MCV 93 (79-97) fl MCH 31 (28-32) pg MCHC 33 (30-34) % RDW 23.5 H (13.2-15.2) % Plt Count 317 (140-440) K/mm3 Lymph % (Auto) 12.6 L (13.4-35.0) % [place] % (Auto) 15.7 H (0.0-7.3) % Eos % (Auto) 2.6 (0.0-4.3) % Baso % (Auto) 0.6 (0.0-1.8) % Lymph # 0.7 L (1.2-5.4) K/mm3 [place] # 0.9 H (0.0-0.8) K/mm3 Eos # 0.1 (0.0-0.4) K/mm3 Baso # 0.0 (0.0-0.1) K/mm3 Seg Neutrophils % 68.5 (40.0-70.0) % Seg Neutrophils # 3.9 (1.8-7.7) K/mm3 Sodium 144 (137-145) mmol/L Potassium 5.2 H (3.6-5.0) mmol/L Chloride 98.2 (98-107) mmol/L Carbon Dioxide 30 D (22-30) mmol/L Anion Gap 21 mmol/L BUN 53 H (7-17) mg/dL Creatinine 6.9 H (0.7-1.2) mg/dL Estimated GFR 7 ml/min BUN/Creatinine Ratio 8 % Glucose 86 (65-100) mg/dL Calcium 9.6 (8.4-10.2) mg/dL Total Bilirubin 0.30 (0.1-1.2) mg/dL AST 15 (5-40) units/L ALT 15 (7-56) units/L Alkaline Phosphatase 122 (35-129) units/L Troponin T 0.950 H* (0.00-0.029) ng/mL Total Protein 6.2 L (6.3-8.2) g/dL Albumin 3.4 L (3.9-5) g/dL Albumin/Globulin Ratio 1.2 % Triglycerides (2-149) mg/dL Cholesterol (50-199) mg/dL LDL Cholesterol Direct (50-130) mg/dL HDL Cholesterol (40-59) mg/dL Cholesterol/HDL Ratio % Lipids 02/08/18 Range/Units 13:20 Triglycerides 58 (2-149) mg/dL Cholesterol 147 (50-199) mg/dL HDL Cholesterol 59 (40-59) mg/dL Cholesterol/HDL Ratio 2.49 % CBC 02/09/18 Range/Units 05:26 WBC 5.6 (4.5-11.0) K/mm3 RBC 2.81 L (3.65-5.03) M/mm3 Hgb 8.7 L (10.1-14.3) gm/dl Hct 26.1 L (30.3-42.9) % Plt Count 317 (140-440) K/mm3 Lymph # 0.7 L (1.2-5.4) K/mm3 [place] # 0.9 H (0.0-0.8) K/mm3 Eos # 0.1 (0.0-0.4) K/mm3 Baso # 0.0 (0.0-0.1) K/mm3 Comprehensive Metabolic Panel 02/09/18 Range/Units 05:26 Sodium 144 (137-145) mmol/L Potassium 5.2 H (3.6-5.0) mmol/L Chloride 98.2 (98-107) mmol/L Carbon Dioxide 30 D (22-30) mmol/L BUN 53 H (7-17) mg/dL Creatinine 6.9 H (0.7-1.2) mg/dL Glucose 86 (65-100) mg/dL Calcium 9.6 (8.4-10.2) mg/dL AST 15 (5-40) units/L ALT 15 (7-56) units/L Alkaline Phosphatase 122 (35-129) units/L Total Protein 6.2 L (6.3-8.2) g/dL Albumin 3.4 L (3.9-5) g/dL Assessment and Plan - Patient Problems (1) Chest pain Current Visit: Yes Status: Acute Qualifiers: (2) Type 2 diabetes mellitus with diabetic nephropathy Current Visit: Yes Status: Acute (3) ESRD (end stage renal disease) on dialysis Current Visit: Yes Status: Chronic (4) Anemia in chronic kidney disease Current Visit: No Status: Acute (5) Chronic systolic heart failure Current Visit: No Status: Acute (6) GERD (gastroesophageal reflux disease) Current Visit: No Status: Acute (7) HTN (hypertension) Current Visit: No Status: Acute Qualifiers: Hypertension type: essential hypertension Qualified Code(s): I10 - Essential (primary) hypertension (8) History of coronary artery stent placement Current Visit: No Status: Acute (9) Noncompliance Current Visit: No Status: Acute (10) PAD (peripheral artery disease) Current Visit: No Status: Acute (11) AICD (automatic cardioverter/defibrillator) present Current Visit: No Status: Chronic (12) CAD (coronary artery disease) Current Visit: No Status: Chronic Qualifiers: Coronary Disease-Associated Artery/Lesion type: [place] artery [place] vs. transplanted heart: [place] heart (13) ESRD (end stage renal disease) on dialysis Current Visit: No Status: Chronic (14) Hyperlipidemia Current Visit: No Status: Chronic Qualifiers: Hyperlipidemia type: mixed hyperlipidemia Qualified Code(s): E78.2 - Mixed hyperlipidemia (15) Ischemic cardiomyopathy Current Visit: No Status: Chronic
[2018-02-10] MEDS ORDERED: AMBIEN PO ONE (01:25)
[2018-02-10] MEDS: TORADOL IV PRN ×3 (03:45→21:10)
[2018-02-10] MEDS: SODIUM CHLORIDE FLUSH SYRINGE 10 ML IV PRN ×2 (03:46→04:56)
[2018-02-10] MEDS: NITROSTAT SL PRN (04:54)
[2018-02-10] MEDS: SENOKOT PO PRN ×2 (06:44→21:10)
[2018-02-10] MEDS: BENTYL PO PRN ×2 (06:44→21:10)
[2018-02-10] MEDS: IMDUR PO SCH (09:09)
[2018-02-10] MEDS: PLAVIX PO SCH (09:10)
[2018-02-10] MEDS: COREG PO SCH ×2 (09:10→21:10)
[2018-02-10] MEDS: Renal Caps PO SCH (09:10)
[2018-02-10] MEDS: PROTONIX PO SCH (09:10)
[2018-02-10] MEDS: SODIUM CHLORIDE FLUSH SYRINGE 10 ML IV SCH ×2 (09:11→21:11)
--- NOTE | 2018-02-10 12:03 | Progress Note ---
Assessment and Plan - Patient Problems (1) Chest pain Current Visit: Yes Status: Acute Qualifiers: Qualified Code(s): R07.89 - Other chest pain Plan to address problem: Patient continues to have intermittent chest pain,chronic.Her Toponin levels are elevated.however,considering levels are more or less flat,though elvevated, doubt present significant myocardial injury.Considering she had recent MPI performed for similar symptoms(12/2017),would continue medical therapy. Will increase carvedilol to 25 mg BID(was on 12.5 mg). (2) Type 2 diabetes mellitus with diabetic nephropathy Current Visit: Yes Status: Acute (3) ESRD (end stage renal disease) on dialysis Current Visit: Yes Status: Chronic (4) Anemia in chronic kidney disease Current Visit: No Status: Acute (5) Chronic systolic heart failure Current Visit: No Status: Acute (6) GERD (gastroesophageal reflux disease) Current Visit: No Status: Acute (7) HTN (hypertension) Current Visit: No Status: Acute Qualifiers: Hypertension type: essential hypertension Qualified Code(s): I10 - Essential (primary) hypertension (8) History of coronary artery stent placement Current Visit: No Status: Acute (9) Noncompliance Current Visit: No Status: Acute (10) PAD (peripheral artery disease) Current Visit: No Status: Acute (11) AICD (automatic cardioverter/defibrillator) present Current Visit: No Status: Chronic (12) CAD (coronary artery disease) Current Visit: No Status: Chronic Qualifiers: Coronary Disease-Associated Artery/Lesion type: [place] artery [place] vs. transplanted heart: [place] heart (13) ESRD (end stage renal disease) on dialysis Current Visit: No Status: Chronic (14) Hyperlipidemia Current Visit: No Status: Chronic Qualifiers: Hyperlipidemia type: mixed hyperlipidemia Qualified Code(s): E78.2 - Mixed hyperlipidemia (15) Ischemic cardiomyopathy Current Visit: No Status: Chronic Subjective Date of service: 02/10/18 Interval history: Continues to have intermittent chest pain,slightly better than yesterday.Telemetry showing S.R. Objective Vital Signs Temp Pulse Resp BP BP Pulse Ox 02/10/18 10:00 69 02/10/18 09:10 83 143/67 02/10/18 09:09 83 143/67 02/10/18 08:18 98.7 F 83 22 143/67 100 02/10/18 01:46 99.1 F 83 20 139/52 99 02/09/18 23:05 78 02/09/18 22:00 97 02/09/18 19:37 97.6 F 81 20 133/56 100 02/09/18 15:51 98.6 F 83 20 143/64 100 02/09/18 14:14 18 99 - Physical Examination HEENT: Positive: PERRL Cardiac: Positive: Reg Rate and Rhythm Lungs: Positive: clear to auscultation Neuro: Positive: Grossly Intact Abdomen: Positive: Unremarkable Skin: Positive: Clear. Negative: Rash Extremities: Absent: edema - Telemetry EKG Rhythm: Sinus Rhythm
--- NOTE | 2018-02-10 14:01 | Progress Note ---
Assessment and Plan Assessment and plan: Ms. Molina is a 67 yo woman with a plethora of co-morbidities and frequent hospitalizations, most centered around missed dialysis sessions and chest pains. She pw chest pains to the hemodialysis center and was sent to ED wo hemodialysis session. She was recently discharged with chest pains. I spoke with [employer] Dr. Newton who knows her well. He will investigate this chest pains. [employer] PACs system is down, no imaging in EMR -Chest pains, angina: d/w Cardiology, treat with nitro -ESRD: consulted Nephrology -Hyperkalemia, missed dialysis due to chest pains -Hypertension: increase bblocker Anticipated discharge tomorrow after hemodialysis History Interval history: Patient was seen and examined. Follow-up on current diagnosis of chest pains. Overnight uneventful. Patient denies any nausea/vomiting or severe headaches. Imaging, nursing note, chart, labs and old chart reviewed. Discussed with patient. She still has diffuse chest pains with sob Hospitalist Physical - Physical exam Narrative exam: GEN: thin frail, chronically disable, NAD, Awake, Alert, Orientated x 3 HEENT: NCAT, EOMI, PERRL, OP Clear NECK: supple, no adenopathy, no thyromegaly, no JVD CVS/HEART: RRR, normal S1S2, pulses present bilaterally CHEST/LUNGS: CTA B, Symmetrical chest expansion, good air entry bilaterally, reproducible chest wall tenderness GI/Abdomen: soft, NTND, good bowel sounds, no guarding or rebound /Bladder: no suprapubic tenderness, no CVA or paraspinal tenderness EXT/Skin: no c/c/e, no obvious rash MSK: FROM x 4 Neuro: CN 2-12 grossly intact, no new focal deficits Psych: calm - Constitutional Vitals: Temp Pulse Resp BP Pulse Ox 98.7 F 69 22 143/67 100 02/10/18 08:18 02/10/18 10:00 02/10/18 08:18 02/10/18 09:10 02/10/18 08:18 General appearance: Present: no acute distress Results - Labs CBC & Chem 7: 02/09/18 05:26 02/09/18 05:26 Labs: Laboratory Last Values WBC 5.6 K/mm3 (4.5-11.0) 02/09/18 05:26 RBC 2.81 M/mm3 (3.65-5.03) L 02/09/18 05:26 Hgb 8.7 gm/dl (10.1-14.3) L 02/09/18 05:26 Hct 26.1 % (30.3-42.9) L 02/09/18 05:26 MCV 93 fl (79-97) 02/09/18 05:26 MCH 31 pg (28-32) 02/09/18 05:26 MCHC 33 % (30-34) 02/09/18 05:26 RDW 23.5 % (13.2-15.2) H 02/09/18 05:26 Plt Count 317 K/mm3 (140-440) 02/09/18 05:26 Lymph % (Auto) 12.6 % (13.4-35.0) L 02/09/18 05:26 [place] % (Auto) 15.7 % (0.0-7.3) H 02/09/18 05:26 Eos % (Auto) 2.6 % (0.0-4.3) 02/09/18 05:26 Baso % (Auto) 0.6 % (0.0-1.8) 02/09/18 05:26 Lymph # 0.7 K/mm3 (1.2-5.4) L 02/09/18 05:26 [place] # 0.9 K/mm3 (0.0-0.8) H 02/09/18 05:26 Eos # 0.1 K/mm3 (0.0-0.4) 02/09/18 05:26 Baso # 0.0 K/mm3 (0.0-0.1) 02/09/18 05:26 Seg Neutrophils % 68.5 % (40.0-70.0) 02/09/18 05:26 Seg Neutrophils # 3.9 K/mm3 (1.8-7.7) 02/09/18 05:26 Sodium 144 mmol/L (137-145) 02/09/18 05:26 Potassium 5.2 mmol/L (3.6-5.0) H 02/09/18 05:26 Chloride 98.2 mmol/L (98-107) 02/09/18 05:26 Carbon Dioxide 30 mmol/L (22-30) D 02/09/18 05:26 Anion Gap 21 mmol/L 02/09/18 05:26 BUN 53 mg/dL (7-17) H 02/09/18 05:26 Creatinine 6.9 mg/dL (0.7-1.2) H 02/09/18 05:26 Estimated GFR 7 ml/min 02/09/18 05:26 BUN/Creatinine Ratio 8 % 02/09/18 05:26 Glucose 86 mg/dL (65-100) 02/09/18 05:26 Calcium 9.6 mg/dL (8.4-10.2) 02/09/18 05:26 Total Bilirubin 0.30 mg/dL (0.1-1.2) 02/09/18 05:26 AST 15 units/L (5-40) 02/09/18 05:26 ALT 15 units/L (7-56) 02/09/18 05:26 Alkaline Phosphatase 122 units/L (35-129) 02/09/18 05:26 Troponin T 0.610 ng/mL (0.00-0.029) H* 02/10/18 09:58 Total Protein 6.2 g/dL (6.3-8.2) L 02/09/18 05:26 Albumin 3.4 g/dL (3.9-5) L 02/09/18 05:26 Albumin/Globulin Ratio 1.2 % 02/09/18 05:26 Triglycerides 58 mg/dL (2-149) 02/08/18 13:20 Cholesterol 147 mg/dL (50-199) 02/08/18 13:20 LDL Cholesterol Direct 80 mg/dL (50-130) 02/08/18 13:20 HDL Cholesterol 59 mg/dL (40-59) 02/08/18 13:20 Cholesterol/HDL Ratio 2.49 % 02/08/18 13:20
[2018-02-10 20:06] LABS: Hematocrit 24.1 % (30.3-42.9); Hemoglobin 7.8 gm/dl (10.1-14.3)
[2018-02-11] MEDS: TORADOL IV PRN ×3 (02:18→20:32)
[2018-02-11] MEDS: SODIUM CHLORIDE FLUSH SYRINGE 10 ML IV PRN ×3 (02:20→20:37)
[2018-02-11] MEDS: NITROSTAT SL PRN ×5 (02:33→20:33)
[2018-02-11] MEDS ORDERED: MORPHINE IV ONE (04:02)
[2018-02-11] MEDS ORDERED: MORPHINE IM ONE (04:02)
[2018-02-11] MEDS: BENTYL PO PRN (04:16)
[2018-02-11 05:48] LABS: Basophils % (Auto) 0.2 % (0.0-1.8); Eosinophils # (Auto) 0.3 K/mm3 (0.0-0.4); Eosinophils % (Auto) 3.9 % (0.0-4.3); Hematocrit 23.8 % (30.3-42.9); Hemoglobin 7.6 gm/dl (10.1-14.3); Lymphocytes # (Auto) 0.7 K/mm3 (1.2-5.4); Lymphocytes % (Auto) 9.2 % (13.4-35.0); Mean Corpuscular HGB Conc 32 % (30-34); Mean Corpuscular Hemoglobin 30 pg (28-32); Mean Corpuscular Volume 94 fl (79-97); Monocytes # (Auto) 0.9 K/mm3 (0.0-0.8); Monocytes % (Auto) 10.9 % (0.0-7.3); Platelet Count 260 K/mm3 (140-440); Red Blood Count 2.53 M/mm3 (3.65-5.03)
[2018-02-11 05:51] LABS: Red Cell Distribution Width 22.1 % (13.2-15.2)
[2018-02-11 06:04] LABS: Calcium 9.3 mg/dL (8.4-10.2)
[2018-02-11] MEDS ORDERED: D50W (25GM) Syringe IV ONE (06:20)
[2018-02-11] MEDS ORDERED: CALCIUM GLUCONATE 1,000 MG in NACL 0.9% 100 ML IV ONE (06:20)
[2018-02-11] MEDS ORDERED: CALCIUM CHLORIDE 1,000 MG in NACL 0.9% 100 ML IV ONE (06:30)
[2018-02-11] MEDS ORDERED: HumaLOG SUB-Q ONE (07:00)
--- NOTE | 2018-02-11 07:11 | Progress Note ---
Assessment and Plan Assessment and plan: Ms. Molina is a 67 yo woman with a plethora of co-morbidities and frequent hospitalizations, most centered around missed dialysis sessions and chest pains. She pw chest pains to the hemodialysis center and was sent to ED wo hemodialysis session. She was recently discharged with chest pains. I spoke with [employer] Dr. Newton who knows her well. He will investigate this chest pains. [employer] PACs system is down, no imaging in EMR -Chest pains, angina: d/w Cardiology, treat symptomatically -ESRD: consulted Nephrology -Hyperkalemia, missed dialysis due to chest pains: treat with hemodialysis -Hypertension: increased bblocker 02/10/18: anticipated d/c tomorrow after hemodialysis, RN called regarding an episode of brbpr overnight, vitals are stable, ordered repeat h/h and monitoring for another episode, possible diverticular bleed. 02/11/18: slight drop in h/h. Consulted GI. made npo. ask nurse to located the CT abd/pelvis results. no discharge today. re-consulted cardiology for clearance for endoscopic procedure History Interval history: Patient was seen and examined. Follow-up on current diagnosis of chest pains. Overnight uneventful. Patient denies any nausea/vomiting or severe headaches. Imaging, nursing note, chart, labs and old chart reviewed. Discussed with patient. She still has diffuse chest pains with sob Hospitalist Physical - Physical exam Narrative exam: GEN: thin frail, chronically disable, NAD, Awake, Alert, Orientated x 3 HEENT: NCAT, EOMI, PERRL, OP Clear NECK: supple, no adenopathy, no thyromegaly, no JVD CVS/HEART: RRR, normal S1S2, pulses present bilaterally CHEST/LUNGS: CTA B, Symmetrical chest expansion, good air entry bilaterally, reproducible chest wall tenderness GI/Abdomen: soft, NTND, good bowel sounds, no guarding or rebound /Bladder: no suprapubic tenderness, no CVA or paraspinal tenderness EXT/Skin: no c/c/e, no obvious rash MSK: FROM x 4 Neuro: CN 2-12 grossly intact, no new focal deficits Psych: calm - Constitutional Vitals: Temp Pulse Resp BP Pulse Ox 98.7 F 79 22 142/59 99 02/11/18 03:04 02/11/18 03:04 02/11/18 03:04 02/11/18 03:04 02/11/18 03:04 General appearance: Present: no acute distress Results - Labs CBC & Chem 7: 02/11/18 05:06 02/11/18 05:06 Labs: Laboratory Last Values WBC 8.0 K/mm3 (4.5-11.0) 02/11/18 05:06 RBC 2.53 M/mm3 (3.65-5.03) L 02/11/18 05:06 Hgb 7.6 gm/dl (10.1-14.3) L 02/11/18 05:06 Hct 23.8 % (30.3-42.9) L 02/11/18 05:06 MCV 94 fl (79-97) 02/11/18 05:06 MCH 30 pg (28-32) 02/11/18 05:06 MCHC 32 % (30-34) 02/11/18 05:06 RDW 22.1 % (13.2-15.2) H 02/11/18 05:06 Plt Count 260 K/mm3 (140-440) 02/11/18 05:06 Lymph % (Auto) 9.2 % (13.4-35.0) L 02/11/18 05:06 [place] % (Auto) 10.9 % (0.0-7.3) H 02/11/18 05:06 Eos % (Auto) 3.9 % (0.0-4.3) 02/11/18 05:06 Baso % (Auto) 0.2 % (0.0-1.8) 02/11/18 05:06 Lymph # 0.7 K/mm3 (1.2-5.4) L 02/11/18 05:06 [place] # 0.9 K/mm3 (0.0-0.8) H 02/11/18 05:06 Eos # 0.3 K/mm3 (0.0-0.4) 02/11/18 05:06 Baso # 0.0 K/mm3 (0.0-0.1) 02/11/18 05:06 Seg Neutrophils % 75.8 % (40.0-70.0) H 02/11/18 05:06 Seg Neutrophils # 6.1 K/mm3 (1.8-7.7) 02/11/18 05:06 Sodium 140 mmol/L (137-145) 02/11/18 05:06 Potassium 6.7 mmol/L (3.6-5.0) H* D 02/11/18 05:06 Chloride 95.9 mmol/L (98-107) L 02/11/18 05:06 Carbon Dioxide 26 mmol/L (22-30) 02/11/18 05:06 Anion Gap 25 mmol/L 02/11/18 05:06 BUN 100 mg/dL (7-17) H 02/11/18 05:06 Creatinine 9.4 mg/dL (0.7-1.2) H 02/11/18 05:06 Estimated GFR 5 ml/min 02/11/18 05:06 BUN/Creatinine Ratio 11 % 02/11/18 05:06 Glucose 101 mg/dL (65-100) H 02/11/18 05:06 Calcium 9.3 mg/dL (8.4-10.2) 02/11/18 05:06 Total Bilirubin 0.30 mg/dL (0.1-1.2) 02/09/18 05:26 AST 15 units/L (5-40) 02/09/18 05:26 ALT 15 units/L (7-56) 02/09/18 05:26 Alkaline Phosphatase 122 units/L (35-129) 02/09/18 05:26 Troponin T 0.610 ng/mL (0.00-0.029) H* 02/10/18 09:58 Total Protein 6.2 g/dL (6.3-8.2) L 02/09/18 05:26 Albumin 3.4 g/dL (3.9-5) L 02/09/18 05:26 Albumin/Globulin Ratio 1.2 % 02/09/18 05:26 Triglycerides 58 mg/dL (2-149) 02/08/18 13:20 Cholesterol 147 mg/dL (50-199) 02/08/18 13:20 LDL Cholesterol Direct 80 mg/dL (50-130) 02/08/18 13:20 HDL Cholesterol 59 mg/dL (40-59) 02/08/18 13:20 Cholesterol/HDL Ratio 2.49 % 02/08/18 13:20
--- NOTE | 2018-02-11 07:29 | Event Note ---
Date: 02/11/18 PATIENT'S POTASSIUM WAS NOTED TO BE 6.7 WITH BUN OF 100 AND CREATININ OF 9.4 BUT NO SYMPTOMS WAS REPORTED. PATIENT IS A DIALYSIS PATIENT WITH LAST DIALYSIS ABOUT 3-4 DAYS AGO. 12 LEAD EKG SHOWED NO PICKED T WAVE. IV 1 GM OF CALCIUM CHLORIDE ,I.V 1 AMP OF D50W AND I.V 10 UNITS OF REGULAR INSULIN ORDERED STAT AND INSTRUCTION TO THE NURSE TO CALL THE DIGITAL ACCOUNT SUPERVISOR DR. UREÑA ON THE CASE STAT FOR POSSIBLE DIALYSIS THIS MORNING GIVEN.
[2018-02-11] MEDS: COREG PO SCH ×2 (10:07→22:21)
[2018-02-11] MEDS: IMDUR PO SCH (10:08)
[2018-02-11] MEDS: Renal Caps PO SCH (10:09)
[2018-02-11] MEDS: PROTONIX PO SCH (10:09)
[2018-02-11] MEDS: PLAVIX PO SCH (10:09)
--- NOTE | 2018-02-11 11:11 | Event Note ---
Date: 02/11/18 full consult dictated \- pt w/ rectal bleed - pt will need clearance from Cardiology prior to any GI procedures - needs electrolytes adjusted - will follow
[2018-02-11] MEDS ORDERED: NACL 0.9% 1000 ML 2,000 ML ONE (11:55)
--- NOTE | 2018-02-11 14:36 | Progress Note ---
Assessment and Plan - Patient Problems (1) Chest pain Current Visit: Yes Status: Acute Qualifiers: Plan to address problem: Chest pain in a patient with history of coronary disease with atypical description. Cardiology evaluation (2) ESRD (end stage renal disease) on dialysis Current Visit: Yes Status: Chronic Plan to address problem: cont HD on MWF schedule (3) Abdominal pain Current Visit: Yes Status: Acute Qualifiers: Plan to address problem: Resume PPI, awaiting GI consult (4) Type 2 diabetes mellitus with diabetic nephropathy Current Visit: Yes Status: Chronic Plan to address problem: Blood sugar management by primary attending (5) Anemia in chronic kidney disease Current Visit: No Status: Chronic Plan to address problem: Give Erythropoetin on dialysis (6) CHF (congestive heart failure) Current Visit: No Status: Acute Qualifiers: Heart failure chronicity: acute on chronic Plan to address problem: Continue fluid removal on dialysis. Continue beta nikolas (7) Hypertensive chronic kidney disease with stage 5 chronic kidney disease or end stage renal disease Current Visit: No Status: Acute Plan to address problem: Follow-up blood pressure on current medications Subjective Date of service: 02/11/18 Principal diagnosis: ESRD Interval history: pt awake, alert, in NAD, denies active CP Objective - Vital Signs Vital signs: Vital Signs - 12hr 02/11/18 02/11/18 02/11/18 02:34 03:04 07:28 Temperature 98.7 F 98.5 F Pulse Rate 78 79 77 Respiratory 22 18 Rate Blood Pressure 142/59 Blood Pressure 160/65 [Right] O2 Sat by Pulse 99 99 Oximetry 02/11/18 02/11/18 02/11/18 08:14 08:54 10:15 Temperature 97.5 F L Pulse Rate 77 57 L Respiratory 18 Rate Blood Pressure 160/65 138/65 Blood Pressure [Right] O2 Sat by Pulse 97 Oximetry 02/11/18 02/11/18 02/11/18 10:30 10:45 11:00 Temperature Pulse Rate 68 66 64 Respiratory Rate Blood Pressure 134/60 149/66 134/60 Blood Pressure [Right] O2 Sat by Pulse Oximetry 02/11/18 02/11/18 02/11/18 11:15 11:30 11:45 Temperature Pulse Rate 66 67 66 Respiratory Rate Blood Pressure 144/62 137/61 141/61 Blood Pressure [Right] O2 Sat by Pulse Oximetry 02/11/18 02/11/18 02/11/18 12:00 12:15 12:30 Temperature Pulse Rate 66 64 65 Respiratory Rate Blood Pressure 136/56 136/70 136/62 Blood Pressure [Right] O2 Sat by Pulse Oximetry 02/11/18 02/11/18 14:20 14:32 Temperature 97.9 F Pulse Rate 78 77 Respiratory 20 Rate Blood Pressure 165/68 Blood Pressure 165/68 [Right] O2 Sat by Pulse 100 100 Oximetry - General Appearance General appearance: well-developed, well-nourished, appears stated age EENT: ATNC, PERRL, mucous membranes moist Neck: no JVD Respiratory: Present: Clear to Ascultation Cardiology: regular, S1S2 Gastrointestinal: normoactive bowel sounds Integumentary: no rash, other (no edema ) Neurologic: no focal deficit, alert and oriented x3, strength 5/5, CN 3-12 intact Psychiatric: mood/affect appropriate, cooperative - Lab 02/11/18 05:06 02/11/18 05:06 Most recent lab results Calcium 9.3 mg/dL (8.4-10.2) 02/11/18 05:06
--- NOTE | 2018-02-11 17:08 | Progress Note ---
Assessment and Plan - Patient Problems (1) Chest pain Current Visit: Yes Status: Acute Qualifiers: Plan to address problem: Patient continues to have intermittent chest pain,chronic.Her Toponin levels are elevated.however,considering levels are more or less flat,though elvevated, doubt present significant myocardial injury.Considering she had recent MPI performed for similar symptoms(12/2017),would continue medical therapy. Will increase carvedilol to 25 mg BID(was on 12.5 mg). 02/11/2018>had EKG done this AM for chest pain,no changes from baseline,her cardiac status is stable."cleared " for gi work up,as indicated. Continue medical therapy. (2) Type 2 diabetes mellitus with diabetic nephropathy Current Visit: Yes Status: Chronic (3) ESRD (end stage renal disease) on dialysis Current Visit: Yes Status: Chronic (4) Anemia in chronic kidney disease Current Visit: No Status: Chronic (5) Chronic systolic heart failure Current Visit: No Status: Acute (6) GERD (gastroesophageal reflux disease) Current Visit: No Status: Acute (7) HTN (hypertension) Current Visit: No Status: Acute Qualifiers: Hypertension type: essential hypertension Qualified Code(s): I10 - Essential (primary) hypertension (8) History of coronary artery stent placement Current Visit: No Status: Acute (9) Noncompliance Current Visit: No Status: Acute (10) PAD (peripheral artery disease) Current Visit: No Status: Acute (11) AICD (automatic cardioverter/defibrillator) present Current Visit: No Status: Chronic (12) CAD (coronary artery disease) Current Visit: No Status: Chronic Qualifiers: Coronary Disease-Associated Artery/Lesion type: [place] artery [place] vs. transplanted heart: [place] heart (13) ESRD (end stage renal disease) on dialysis Current Visit: No Status: Chronic (14) Hyperlipidemia Current Visit: No Status: Chronic Qualifiers: Hyperlipidemia type: mixed hyperlipidemia Qualified Code(s): E78.2 - Mixed hyperlipidemia (15) Ischemic cardiomyopathy Current Visit: No Status: Chronic Subjective Date of service: 02/11/18 Principal diagnosis: ESRD Interval history: Continues to have intermittent chest pain,slightly better than yesterday.Telemetry showing S.R. had dialysis this AM. Objective Vital Signs Temp Pulse Resp BP BP Pulse Ox 02/11/18 14:32 97.9 F 77 20 165/68 100 02/11/18 14:20 78 165/68 100 02/11/18 13:15 98.0 F 75 16 146/63 02/11/18 13:00 72 151/67 02/11/18 12:45 67 128/61 02/11/18 12:30 65 136/62 02/11/18 12:15 64 136/70 02/11/18 12:00 66 136/56 02/11/18 11:45 66 141/61 02/11/18 11:30 67 137/61 02/11/18 11:15 66 144/62 02/11/18 11:00 64 134/60 02/11/18 10:45 66 149/66 02/11/18 10:30 68 134/60 02/11/18 10:15 97.5 F L 57 L 18 138/65 02/11/18 08:54 97 02/11/18 08:14 77 160/65 02/11/18 07:28 98.5 F 77 18 160/65 99 02/11/18 03:04 98.7 F 79 22 142/59 99 02/11/18 02:34 78 02/10/18 19:52 99.0 F 75 18 144/60 98 - Physical Examination HEENT: Positive: PERRL Neck: Positive: neck supple Cardiac: Positive: Regular Rhythm Neuro: Positive: Grossly Intact Abdomen: Positive: Unremarkable Skin: Positive: Clear. Negative: Rash Extremities: Absent: edema - Labs and Meds CBC 02/10/18 02/11/18 Range/Units 19:26 05:06 WBC 8.0 (4.5-11.0) K/mm3 RBC 2.53 L (3.65-5.03) M/mm3 Hgb 7.8 L 7.6 L (10.1-14.3) gm/dl Hct 24.1 L 23.8 L (30.3-42.9) % Plt Count 260 (140-440) K/mm3 Lymph # 0.7 L (1.2-5.4) K/mm3 [place] # 0.9 H (0.0-0.8) K/mm3 Eos # 0.3 (0.0-0.4) K/mm3 Baso # 0.0 (0.0-0.1) K/mm3 Comprehensive Metabolic Panel 02/11/18 Range/Units 05:06 Sodium 140 (137-145) mmol/L Potassium 6.7 H* D (3.6-5.0) mmol/L Chloride 95.9 L (98-107) mmol/L Carbon Dioxide 26 (22-30) mmol/L BUN 100 H (7-17) mg/dL Creatinine 9.4 H (0.7-1.2) mg/dL Glucose 101 H (65-100) mg/dL Calcium 9.3 (8.4-10.2) mg/dL
[2018-02-11] MEDS: SODIUM CHLORIDE FLUSH SYRINGE 10 ML IV SCH ×2 (20:28→22:22)
[2018-02-12] MEDS: NITROSTAT SL PRN ×5 (01:47→12:50)
[2018-02-12] MEDS: TORADOL IV PRN ×4 (01:47→21:17)
[2018-02-12] MEDS: SODIUM CHLORIDE FLUSH SYRINGE 10 ML IV PRN (01:53)
[2018-02-12] MEDS ORDERED: LIDOCAINE VISCOUS 2% PO ONE (02:20)
[2018-02-12] MEDS ORDERED: ALUM-MAG HYDROX-SIMETH 200-200-20MG/5ML PO ONE (02:20)
[2018-02-12] MEDS ORDERED: RESTORIL PO ONE (02:20)
--- NOTE | 2018-02-12 08:27 | Progress Note ---
Assessment and Plan - Patient Problems (1) Acute chest pain Current Visit: No Status: Acute Plan to address problem: Chest pain in a patient with history of coronary disease with atypical description. Management per senior ui ux developer (2) Abdominal pain Current Visit: No Status: Acute Plan to address problem: GI has been consulted. (3) Type 2 diabetes mellitus with diabetic nephropathy Current Visit: Yes Status: Chronic Plan to address problem: Blood sugar management by primary attending (4) ESRD (end stage renal disease) on dialysis Current Visit: Yes Status: Chronic Plan to address problem: Hemodialysis on a Sunday, Sunday and Sunday schedule. Follow-up electrolytes (5) Anemia in chronic kidney disease Current Visit: No Status: Chronic Plan to address problem: Give Erythropoetin on dialysis (6) Chronic systolic heart failure Current Visit: No Status: Acute Plan to address problem: Continue fluid removal on dialysis. Continue beta nikolas (7) Hypertensive chronic kidney disease with stage 5 chronic kidney disease or end stage renal disease Current Visit: No Status: Acute Plan to address problem: Follow-up blood pressure on current medications Subjective Date of service: 02/12/18 Principal diagnosis: ESRD Interval history: Patient seen lying in bed. She complains of epigastric pain/chest pain. No nausea or vomiting. She ate her breakfast Objective - Exam Narrative Exam: Middle-aged [place] Citizen female lying in bed in no acute distress HEENT: NCAT, pink oral mucous membrane Neck: Supple, no venous distention CVS: S1S2 RRR with no murmur, rub or gallop Chest: Clear to auscultation Abdomen: Protuberant, soft, nontender, no organomegaly, bowel sounds are present Extremities: No edema Skin warm and dry Genitourinary deferred Neuro: Awake, alert no focal deficits - Vital Signs Vital signs: Vital Signs - 12hr 02/12/18 02/12/18 02/12/18 02:17 02:35 07:32 Temperature 98.6 F 99.4 F Pulse Rate 75 72 Respiratory 20 20 20 Rate Blood Pressure 131/54 Blood Pressure 149/58 [Right] O2 Sat by Pulse 95 100 Oximetry 02/12/18 02/12/18 07:46 07:51 Temperature Pulse Rate 72 72 Respiratory Rate Blood Pressure 131/54 131/54 Blood Pressure [Right] O2 Sat by Pulse Oximetry - Lab 02/11/18 05:06 02/12/18 09:01 Most recent lab results Calcium 9.3 mg/dL (8.4-10.2) 02/11/18 05:06
--- NOTE | 2018-02-12 09:33 | Gastroenterology Progress Note ---
Assessment and Plan - Patient Problems (1) Rectal bleeding Current Visit: Yes Status: Acute Plan to address problem: - Colonoscopy 03/2017 with diverticular disease ([facility], Dr Carlson). - Minimal recent bleeding, and no severe change in character of chronic abdominal pain to suggest ischemia, but has severe vascular disease. - Will get tagged RBC scan (CTA negative 12/2017) to see if occult sigmoid bleeding from tics. - Continue current diet as hct is near her baseline, but transfuse as needed in HD. - OK to continue cardiac ASA or plavix as needed since bleeding is currently low -grade. Subjective Date of service: 02/12/18 Principal diagnosis: GI Bleeding Interval history: The patient had 2-3 BM yesterday, none today. She has BRB with wiping but none in-between stools. She has chronic abdominal/pelvic pain (numerous CTs) and has a hx of severe atherosclerosis, but ate breakfast without pain or vomiting. Objective - Constitutional Vitals: Temp Pulse Resp BP Pulse Ox 99.4 F 72 18 131/54 100 02/12/18 07:32 02/12/18 07:51 02/12/18 08:53 02/12/18 07:51 02/12/18 07:32 General appearance: no acute distress - Respiratory Respiratory effort: normal Respiratory: bilateral: CTA - Cardiovascular Rhythm: regular Heart Sounds: Present: S1 & S2 - Gastrointestinal General gastrointestinal: Present: soft, non-tender, non-distended - Labs CBC & Chem 7: 02/11/18 05:06 02/11/18 05:06 Labs: Laboratory Results - last 24 hr 02/11/18 02/11/18 10:25 16:21 POC Glucose 157 H 86
[2018-02-12] MEDS: Renal Caps PO SCH (10:11)
[2018-02-12] MEDS: PLAVIX PO SCH (10:11)
[2018-02-12] MEDS: PROTONIX PO SCH (10:12)
[2018-02-12] MEDS: SODIUM CHLORIDE FLUSH SYRINGE 10 ML IV SCH ×2 (10:18→21:15)
[2018-02-12] MEDS: IMDUR PO SCH (10:21)
[2018-02-12] MEDS: COREG PO SCH ×2 (10:22→21:17)
[2018-02-12] MEDS ORDERED: FLUSH HEPARIN IV ONE ×2 (10:25→10:29)
--- NOTE | 2018-02-12 10:33 | Progress Note ---
Assessment and Plan Assessment and plan: Ms. Molina is a 67 yo woman with a plethora of co-morbidities and frequent hospitalizations, most centered around missed dialysis sessions and chest pains. She pw chest pains to the hemodialysis center and was sent to ED wo hemodialysis session. She was recently discharged with chest pains. I spoke with Director Of Nuclear Medicine Dr. Newton who knows her well. He will investigate this chest pains. [employer] PACs system is down, no imaging in EMR -Chest pains, angina: d/w Cardiology, treat symptomatically -ESRD: consulted Nephrology -Hyperkalemia, missed dialysis due to chest pains: treat with hemodialysis -Hypertension: increased bblocker 02/10/18: anticipated d/c tomorrow after hemodialysis, RN called regarding an episode of brbpr overnight, vitals are stable, ordered repeat h/h and monitoring for another episode, possible diverticular bleed. 02/11/18: slight drop in h/h. Consulted GI. made npo. ask nurse to located the CT abd/pelvis results. no discharge today. re-consulted cardiology for clearance for endoscopic procedure. Unable to get report of CT abd/pelvis, I called radiology and go no answer. 02/12/18: gi consult reviewed, tag RBC. anticipate d/c tomorrow if cleared by cardiology and gi. I called radiology again and spoke with Reanna who transferred me to radiologist Dr. York to review CT abd/pelvis done on 02/08/18 wo contrast. History Interval history: Patient was seen and examined. Follow-up on current diagnosis of chest pains. Overnight uneventful. Patient denies any nausea/vomiting or severe headaches. Imaging, nursing note, chart, labs and old chart reviewed. Discussed with patient. No brbpr in the toilet but she did see blood on tissue paper after wiping today. Hospitalist Physical - Physical exam Narrative exam: GEN: thin frail, chronically disable, NAD, Awake, Alert, Orientated x 3 HEENT: NCAT, EOMI, PERRL, OP Clear NECK: supple, no adenopathy, no thyromegaly, no JVD CVS/HEART: RRR, normal S1S2, pulses present bilaterally CHEST/LUNGS: CTA B, Symmetrical chest expansion, good air entry bilaterally, reproducible chest wall tenderness GI/Abdomen: soft, NTND, good bowel sounds, no guarding or rebound /Bladder: no suprapubic tenderness, no CVA or paraspinal tenderness EXT/Skin: no c/c/e, no obvious rash MSK: FROM x 4 Neuro: CN 2-12 grossly intact, no new focal deficits Psych: calm - Constitutional Vitals: Temp Pulse Resp BP Pulse Ox 99.4 F 76 18 124/51 100 02/12/18 07:32 02/12/18 10:22 02/12/18 08:53 02/12/18 10:22 02/12/18 10:12 General appearance: Present: no acute distress Results - Labs CBC & Chem 7: 02/11/18 05:06 02/11/18 05:06 Labs: Laboratory Last Values WBC 8.0 K/mm3 (4.5-11.0) 02/11/18 05:06 RBC 2.53 M/mm3 (3.65-5.03) L 02/11/18 05:06 Hgb 7.6 gm/dl (10.1-14.3) L 02/11/18 05:06 Hct 23.8 % (30.3-42.9) L 02/11/18 05:06 MCV 94 fl (79-97) 02/11/18 05:06 MCH 30 pg (28-32) 02/11/18 05:06 MCHC 32 % (30-34) 02/11/18 05:06 RDW 22.1 % (13.2-15.2) H 02/11/18 05:06 Plt Count 260 K/mm3 (140-440) 02/11/18 05:06 Lymph % (Auto) 9.2 % (13.4-35.0) L 02/11/18 05:06 [place] % (Auto) 10.9 % (0.0-7.3) H 02/11/18 05:06 Eos % (Auto) 3.9 % (0.0-4.3) 02/11/18 05:06 Baso % (Auto) 0.2 % (0.0-1.8) 02/11/18 05:06 Lymph # 0.7 K/mm3 (1.2-5.4) L 02/11/18 05:06 [place] # 0.9 K/mm3 (0.0-0.8) H 02/11/18 05:06 Eos # 0.3 K/mm3 (0.0-0.4) 02/11/18 05:06 Baso # 0.0 K/mm3 (0.0-0.1) 02/11/18 05:06 Seg Neutrophils % 75.8 % (40.0-70.0) H 02/11/18 05:06 Seg Neutrophils # 6.1 K/mm3 (1.8-7.7) 02/11/18 05:06 Sodium 140 mmol/L (137-145) 02/11/18 05:06 Potassium 6.7 mmol/L (3.6-5.0) H* D 02/11/18 05:06 Chloride 95.9 mmol/L (98-107) L 02/11/18 05:06 Carbon Dioxide 26 mmol/L (22-30) 02/11/18 05:06 Anion Gap 25 mmol/L 02/11/18 05:06 BUN 100 mg/dL (7-17) H 02/11/18 05:06 Creatinine 9.4 mg/dL (0.7-1.2) H 02/11/18 05:06 Estimated GFR 5 ml/min 02/11/18 05:06 BUN/Creatinine Ratio 11 % 02/11/18 05:06 Glucose 101 mg/dL (65-100) H 02/11/18 05:06 POC Glucose 86 (70-105) 02/11/18 16:21 Calcium 9.3 mg/dL (8.4-10.2) 02/11/18 05:06 Total Bilirubin 0.30 mg/dL (0.1-1.2) 02/09/18 05:26 AST 15 units/L (5-40) 02/09/18 05:26 ALT 15 units/L (7-56) 02/09/18 05:26 Alkaline Phosphatase 122 units/L (35-129) 02/09/18 05:26 Troponin T 0.610 ng/mL (0.00-0.029) H* 02/10/18 09:58 Total Protein 6.2 g/dL (6.3-8.2) L 02/09/18 05:26 Albumin 3.4 g/dL (3.9-5) L 02/09/18 05:26 Albumin/Globulin Ratio 1.2 % 02/09/18 05:26 Triglycerides 58 mg/dL (2-149) 02/08/18 13:20 Cholesterol 147 mg/dL (50-199) 02/08/18 13:20 LDL Cholesterol Direct 80 mg/dL (50-130) 02/08/18 13:20 HDL Cholesterol 59 mg/dL (40-59) 02/08/18 13:20 Cholesterol/HDL Ratio 2.49 % 02/08/18 13:20
[2018-02-12 11:21] LABS: Calcium 9.5 mg/dL (8.4-10.2)
[2018-02-12] MEDS: BENTYL PO PRN (21:17)
[2018-02-13] MEDS: TORADOL IV PRN ×2 (05:24→09:45)
[2018-02-13] MEDS: BENTYL PO PRN (07:04)
[2018-02-13 08:32] LABS: Hematocrit 23.3 % (30.3-42.9); Hemoglobin 7.7 gm/dl (10.1-14.3)
[2018-02-13] MEDS: COREG PO SCH ×2 (09:30→14:27)
[2018-02-13] MEDS: IMDUR PO SCH ×2 (09:30→14:27)
[2018-02-13] MEDS: Renal Caps PO SCH (09:35)
[2018-02-13] MEDS: PROTONIX PO SCH (09:35)
[2018-02-13] MEDS: PLAVIX PO SCH (09:35)
--- NOTE | 2018-02-13 10:35 | Progress Note ---
Assessment and Plan - Patient Problems (1) Acute chest pain Current Visit: No Status: Acute Plan to address problem: Chest pain in a patient with history of coronary disease with atypical description. Management per vice president marketing & development (2) Abdominal pain Current Visit: No Status: Acute Plan to address problem: Management by GI (3) Type 2 diabetes mellitus with diabetic nephropathy Current Visit: Yes Status: Chronic Plan to address problem: Blood sugar management by primary attending (4) ESRD (end stage renal disease) on dialysis Current Visit: Yes Status: Chronic Plan to address problem: Hemodialysis on a Sunday, Sunday and Sunday schedule. Follow-up electrolytes (5) Anemia in chronic kidney disease Current Visit: No Status: Chronic Plan to address problem: Give Erythropoetin on dialysis (6) Chronic systolic heart failure Current Visit: No Status: Acute Plan to address problem: Continue fluid removal on dialysis. Continue beta nikolas (7) Hypertensive chronic kidney disease with stage 5 chronic kidney disease or end stage renal disease Current Visit: No Status: Acute Plan to address problem: Follow-up blood pressure on current medications Subjective Date of service: 02/13/18 Principal diagnosis: ESRD Interval history: Patient seen lying in bed. She still complains of epigastric pain/chest pain. No nausea or vomiting. Objective - Exam Narrative Exam: Middle-aged [place] Polish female lying in bed in no acute distress HEENT: NCAT, pink oral mucous membrane Neck: Supple, no venous distention CVS: S1S2 RRR with no murmur, rub or gallop Chest: Clear to auscultation Abdomen: Protuberant, soft, nontender, no organomegaly, bowel sounds are present Extremities: No edema Skin warm and dry Genitourinary deferred Neuro: Awake, alert no focal deficits - Vital Signs Vital signs: Vital Signs - 12hr 02/13/18 02/13/18 07:19 09:45 Temperature 98.5 F Pulse Rate 75 Respiratory 18 20 Rate Blood Pressure 147/65 O2 Sat by Pulse 100 Oximetry - Lab 02/13/18 08:01 02/13/18 05:31 Most recent lab results Calcium 9.0 mg/dL (8.4-10.2) 02/13/18 05:31
--- NOTE | 2018-02-13 10:58 | Gastroenterology Progress Note ---
Assessment and Plan 1.rectal bleeding -H/H 7.7/23.3- stable -continue to monitor H/H and transfuse as needed -BM x 1 this am with scant amount of BRB on TP but no significant bleeding -colonoscopy 03/2017 revealed diverticular disease ([facility], Dr. Carlson) -no plans for repeat colonoscopy at this time unless overt bleeding develops -bleeding scan cancelled yesterday due patient being claustrophobic and unable to tolerate -clinically, pt is stable with continued c/o chronic abd pain w/o severe change in character to suggest ischemia but has severe vasular disease -tolerating diet -okay to continue cardiac ASA or plavix as needed since bleeding is currently low-grade -continue supportive care -no further recommendations at this time per GI standpoint -will sign off, please call if needed Subjective Date of service: 02/13/18 Principal diagnosis: rectal bleeding Interval history: No acute distress. Reports BM x 1 this am with scant amount of BRD on TP only. Admits to continued chronic abd pain. Tolerating diet. Objective - Constitutional Vitals: Temp Pulse Resp BP Pulse Ox 98.5 F 75 20 147/65 100 02/13/18 07:19 02/13/18 07:19 02/13/18 09:45 02/13/18 07:19 02/13/18 07:19 General appearance: no acute distress - Respiratory Respiratory: bilateral: CTA - Cardiovascular Rhythm: regular Heart Sounds: Present: S1 & S2 - Gastrointestinal General gastrointestinal: Present: soft, non-tender, non-distended, normal bowel sounds - Labs CBC & Chem 7: 02/13/18 08:01 02/13/18 05:31 Labs: Laboratory Results - last 24 hr 02/12/18 02/13/18 02/13/18 09:01 05:31 08:01 Hgb 7.7 L Hct 23.3 L Sodium 137 136 L Potassium 5.0 D 5.8 H Chloride 96.1 L 93.2 L Carbon Dioxide 29 27 Anion Gap 17 22 BUN 56 H 79 H Creatinine 5.9 H 7.6 H Estimated GFR 9 6 BUN/Creatinine Ratio 9 10 Glucose 130 H 85 Calcium 9.5 9.0
[2018-02-13] MEDS ORDERED: NACL 0.9 (PRIMING MACHINE ONLY DIALYSIS) MC ONE (11:58)
--- NOTE | 2018-02-13 12:54 | XRay Report ---
PORTABLE CHEST INDICATION: Shortness of breath. COMPARISON: 02/01/2018 FINDINGS: Portable, frontal chest radiograph again demonstrates mild cardiomegaly and slightly prominent lung markings centrally. No pleural effusions or CHF. Right hemidiaphragm approximately 2 cm higher than the left. Stable battery pack along left lower chest wall with a single precordial lead tip projecting right paratracheal. EKG leads. Few bony degenerative changes with left distal clavicular post surgical changes questioned. Small right proximal humerus sclerotic lesion suspected previously now not as well visualized, though dedicated right humerus radiographs may again be considered for more complete evaluation, if warranted. CONCLUSION: No acute chest process with stable cardiomegaly and few other findings, as above. Thank you for the opportunity to participate in this patient's care.
--- NOTE | 2018-02-13 12:54 | Cat Scan Report ---
CT ABDOMEN AND PELVIS WITHOUT CONTRAST INDICATION: Abdominal pain. COMPARISON: 12/22/2017 FINDINGS: Noncontrast abdomen and pelvis CT performed. LUNG BASES: Mild cardiomegaly again noted as also coronary and aortic atherosclerosis. Anemia suspected. Streak artifact from stable left lower chest wall battery pack with a single presternal lead. Mild bibasilar scarring/atelectasis. Nonspecific distal esophageal wall prominence/thickening, not excluded for gastroesophageal reflux and/or hiatal hernia, amongst others. ABDOMEN: Please note that sensitivity to detect small visceral lesions is limited due to the absence of intravenous or oral contrast. Left hepatic lobe tip now again approaches the spleen in the left upper quadrant. Otherwise grossly unremarkable unenhanced liver, spleen, gallbladder, pancreas and IVC. Slight adrenal prominence/possible hyperplasia. Extensive nonaneurysmal aortoiliac atherosclerotic changes. Stable mildly atrophic, nonhydronephrotic kidneys bilaterally with renal lengths approximately 7.3 cm on the right and 8 cm on the left. A tiny nonobstructing right upper renal calculus, axial image 67 now noted. Multiple left renal cortical hypodensities/cysts, the largest approximately 1 cm inferiorly. Nonopacified GI tract evaluation limited, though grossly nonobstructive. No ascites or definite size significant adenopathy. Small fat containing umbilical hernia with a transverse neck of 0.6 cm. PELVIS: Uterus grossly age-appropriate and within normal limits. Few pelvic vascular calcifications. Non-opacified urinary bladder suboptimally distended and assessed, though grossly unremarkable. Mild sigmoid diverticulosis. No free fluid or significant adenopathy. Advanced L5-S1 degenerative changes with approximately 6 mm spondylolisthesis and endplate irregularities/Schmorl's nodes with degenerative spurring again seen. Demineralized bones with multilevel Schmorl's nodes. Lower thoracic spine degenerative spurring. Moderate mid to lower lumbar facet arthropathy. Mild bilateral SI joint degenerative changes. Slight diffuse subcutaneous stranding/edema. CONCLUSION: No definite acute CT abnormality on this limited, unenhanced exam with various stable incidental findings as cardiomegaly, atherosclerosis, prominent liver, atrophic kidneys and multilevel spinal degenerative changes, amongst others, as detailed above. I phoned the above results to Dr. Velázquez in the ER, 11:45 AM, 02/08/2018. Thank you for the opportunity to participate in this patient's care.
[2018-02-13 14:00] VITALS: BP 177/63
--- NOTE | 2018-02-13 14:27 | Progress Note ---
Assessment and Plan Assessment and plan: Ms. Molina is a 67 yo woman with a plethora of co-morbidities and frequent hospitalizations, most centered around missed dialysis sessions and chest pains. She pw chest pains to the hemodialysis center and was sent to ED wo hemodialysis session. She was recently discharged with chest pains. [place] following for chest pain. GI is following for GI bleed -Chest pains, angina: cardiology following -ESRD: consulted Nephrology -Hyperkalemia, missed dialysis due to chest pains: treat with hemodialysis -Hypertension: increased bblocker Disposition: Possible DC tomorrow if stable. History Interval history: Patient was seen and evaluated this morning while she was on dialysis. Patient was asking to eat. Patient has small amount of blood mixed stool. Hospitalist Physical - Physical exam Narrative exam: Not in cardiopulmonary distress. The patient appeared well nourished and normally developed. Vital signs as documented. Head exam is unremarkable. No scleral icterus . Neck is without jugular venous distension, thyromegaly, or carotid bruits. Lungs are clear to auscultation. Cardiac exam reveals regular rate and Rhythm. Abdominal exam reveals normal bowel sounds, no masses, no organomegaly and no aortic enlargement. Extremities are nonedematous and both femoral and pedal pulses are normal. 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 No focal weakness. - Constitutional Vitals: Temp Pulse Resp BP Pulse Ox 98.0 F 72 16 177/63 100 02/13/18 10:20 02/13/18 13:00 02/13/18 10:20 02/13/18 13:00 02/13/18 07:19 General appearance: Present: no acute distress Results - Labs CBC & Chem 7: 02/13/18 08:01 02/13/18 05:31 Labs: Laboratory Last Values WBC 8.0 K/mm3 (4.5-11.0) 02/11/18 05:06 RBC 2.53 M/mm3 (3.65-5.03) L 02/11/18 05:06 Hgb 7.7 gm/dl (10.1-14.3) L 02/13/18 08:01 Hct 23.3 % (30.3-42.9) L 02/13/18 08:01 MCV 94 fl (79-97) 02/11/18 05:06 MCH 30 pg (28-32) 02/11/18 05:06 MCHC 32 % (30-34) 02/11/18 05:06 RDW 22.1 % (13.2-15.2) H 02/11/18 05:06 Plt Count 260 K/mm3 (140-440) 02/11/18 05:06 Lymph % (Auto) 9.2 % (13.4-35.0) L 02/11/18 05:06 [place] % (Auto) 10.9 % (0.0-7.3) H 02/11/18 05:06 Eos % (Auto) 3.9 % (0.0-4.3) 02/11/18 05:06 Baso % (Auto) 0.2 % (0.0-1.8) 02/11/18 05:06 Lymph # 0.7 K/mm3 (1.2-5.4) L 02/11/18 05:06 [place] # 0.9 K/mm3 (0.0-0.8) H 02/11/18 05:06 Eos # 0.3 K/mm3 (0.0-0.4) 02/11/18 05:06 Baso # 0.0 K/mm3 (0.0-0.1) 02/11/18 05:06 Seg Neutrophils % 75.8 % (40.0-70.0) H 02/11/18 05:06 Seg Neutrophils # 6.1 K/mm3 (1.8-7.7) 02/11/18 05:06 Sodium 136 mmol/L (137-145) L 02/13/18 05:31 Potassium 5.8 mmol/L (3.6-5.0) H 02/13/18 05:31 Chloride 93.2 mmol/L (98-107) L 02/13/18 05:31 Carbon Dioxide 27 mmol/L (22-30) 02/13/18 05:31 Anion Gap 22 mmol/L 02/13/18 05:31 BUN 79 mg/dL (7-17) H 02/13/18 05:31 Creatinine 7.6 mg/dL (0.7-1.2) H 02/13/18 05:31 Estimated GFR 6 ml/min 02/13/18 05:31 BUN/Creatinine Ratio 10 % 02/13/18 05:31 Glucose 85 mg/dL (65-100) 02/13/18 05:31 POC Glucose 86 (70-105) 02/11/18 16:21 Calcium 9.0 mg/dL (8.4-10.2) 02/13/18 05:31 Total Bilirubin 0.30 mg/dL (0.1-1.2) 02/09/18 05:26 AST 15 units/L (5-40) 02/09/18 05:26 ALT 15 units/L (7-56) 02/09/18 05:26 Alkaline Phosphatase 122 units/L (35-129) 02/09/18 05:26 Troponin T 0.610 ng/mL (0.00-0.029) H* 02/10/18 09:58 Total Protein 6.2 g/dL (6.3-8.2) L 02/09/18 05:26 Albumin 3.4 g/dL (3.9-5) L 02/09/18 05:26 Albumin/Globulin Ratio 1.2 % 02/09/18 05:26 Triglycerides 58 mg/dL (2-149) 02/08/18 13:20 Cholesterol 147 mg/dL (50-199) 02/08/18 13:20 LDL Cholesterol Direct 80 mg/dL (50-130) 02/08/18 13:20 HDL Cholesterol 59 mg/dL (40-59) 02/08/18 13:20 Cholesterol/HDL Ratio 2.49 % 02/08/18 13:20
--- NOTE | 2018-02-13 14:58 | Discharge Summary ---
Providers - Providers Date of Admission: 02/08/18 14:18 Attending physician: KAILYN PHILLIP MD 02/08/18 22:44 Consult to Physician [CONS] Routine Comment: Concern for HI Consulting Provider: DIMITRIOS LO Physician Instructions: Dr. Rodríguez spoke with the Debridging Machine Operator Reason For Exam: ACS 02/11/18 06:54 Consult to Physician [CONS] Routine Comment: called ans. srv./tawny Consulting Provider: PALAK MONTOYA Physician Instructions: Reason For Exam: BRBPR 02/11/18 14:52 Consult to Physician [CONS] Routine Comment: Consulting Provider: CORNELIA MCLEAN Physician Instructions: Reason For Exam: clearance for endoscopy procedure Primary care physician: PROCESS STRIPPER Hospitalization Reason for admission: chest pain, GI bleed, non-compliance Condition: Stable Disposition: DC-01 TO HOME OR SELFCARE Time spent for discharge: 32 minutes - Discharge Diagnoses (1) Abdominal pain Status: Acute Qualifiers: (2) Chest pain Status: Acute Qualifiers: (3) Rectal bleeding Status: Acute (4) ESRD (end stage renal disease) on dialysis Status: Chronic (5) Noncompliance Status: Acute Core Measure Documentation - Palliative Care Palliative Care/ Comfort Measures: Not Applicable - Core Measures Any of the following diagnoses?: none Exam - Physical Exam Narrative exam: Not in cardiopulmonary distress. The patient appeared well nourished and normally developed. Vital signs as documented. Head exam is unremarkable. No scleral icterus . Neck is without jugular venous distension, thyromegaly, or carotid bruits. Lungs are clear to auscultation. Cardiac exam reveals regular rate and Rhythm. Abdominal exam reveals normal bowel sounds, no masses, no organomegaly and no aortic enlargement. Extremities are nonedematous and both femoral and pedal pulses are normal. 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 No focal weakness. - Constitutional Vitals: Temp Pulse Resp BP Pulse Ox 98.4 F 63 18 177/63 100 02/13/18 13:00 02/13/18 13:00 02/13/18 13:00 02/13/18 13:00 02/13/18 07:19 Plan Activity: no restrictions Weight Bearing Status: Full Weight Bearing Diet: diabetic, renal Additional Instructions: follow up at [facility] in 2 weeks Follow up with: ALEJO ROCHE MD [Primary Care Provider] - 3-5 Days
== END 2018-02-13 15:25 | disposition home health service (06) | DRG 377 ==
LOC: ED 10:00 → 3A 14:18 → 2B-ACE 15:01
PROVIDERS: ADMIT Internal Medicine; ATTEND Internal Medicine
PROC: 5A1D70Z Performance of Urinary Filtration, Intermittent, Less than 6 Hours Per Day (ICD-10-PCS; principal; 2018-02-08)
PROC: 5A1D70Z Performance of Urinary Filtration, Intermittent, Less than 6 Hours Per Day (ICD-10-PCS; 2018-02-11)
PROC: 5A1D70Z Performance of Urinary Filtration, Intermittent, Less than 6 Hours Per Day (ICD-10-PCS; 2018-02-13)
DX: K92.2 Gastrointestinal hemorrhage, unspecified (principal); N18.6 End stage renal disease; I25.110 Atherosclerotic heart disease of native coronary artery with unstable angina pectoris; I13.2 Hypertensive heart and chronic kidney disease with heart failure and with stage 5 chronic kidney disease, or end stage renal disease; I50.22 Chronic systolic (congestive) heart failure; E87.5 Hyperkalemia; I50.9 Heart failure, unspecified; M19.90 Unspecified osteoarthritis, unspecified site; E78.5 Hyperlipidemia, unspecified; K21.9 Gastro-esophageal reflux disease without esophagitis; E11.22 Type 2 diabetes mellitus with diabetic chronic kidney disease; I25.5 Ischemic cardiomyopathy; D63.1 Anemia in chronic kidney disease; E11.21 Type 2 diabetes mellitus with diabetic nephropathy; E11.51 Type 2 diabetes mellitus with diabetic peripheral angiopathy without gangrene; Z95.810 Presence of automatic (implantable) cardiac defibrillator; Z91.14 Patient's other noncompliance with medication regimen; Z79.899 Other long term (current) drug therapy; Z86.73 Personal history of transient ischemic attack (TIA), and cerebral infarction without residual deficits; Z95.5 Presence of coronary angioplasty implant and graft; Z98.51 Tubal ligation status; Z79.82 Long term (current) use of aspirin; Z90.49 Acquired absence of other specified parts of digestive tract; Z82.49 Family history of ischemic heart disease and other diseases of the circulatory system
CPT/HCPCS: 36415; 71045; 74176; 78278; 80048; 80053; 80061; 82962; 84484; 85014; 85018; 85025; 93005; 93010; 96374; 96375; A9270-GY; A9560; J0885; J1642; J1815; J1885; J2270; J2405; J7030

== ENCOUNTER 2018-03-08 09:47 | Emergency (ER) | payer MEDICARE ==
--- NOTE | 2018-03-08 11:48 | Emergency Department Report ---
Blank Doc - Documentation Documentation: 67-year-old female with end-stage disease on dialysis, CAD with stents, CVA, and CHF presents to the hospital complaints of abdominal and chest pain since last night. Positive nausea vomiting and some loose stools. Patient has history of multiple ER visits for similar complaints. Patient only received part of her dialysis today and it was discontinued secondary to pain. Labs, EKG, chest x-ray ordered Patient will be sent to the main side for evaluation
[2018-03-08 12:11] LABS: Basophils % (Auto) 0.5 % (0.0-1.8); Eosinophils # (Auto) 0.1 K/mm3 (0.0-0.4); Eosinophils % (Auto) 1.2 % (0.0-4.3); Hematocrit 28.1 % (30.3-42.9); Lymphocytes % (Auto) 21.9 % (13.4-35.0); Mean Corpuscular HGB Conc 32 % (30-34); Mean Corpuscular Hemoglobin 30 pg (28-32); Mean Corpuscular Volume 92 fl (79-97); Monocytes # (Auto) 0.7 K/mm3 (0.0-0.8); Monocytes % (Auto) 14.6 % (0.0-7.3); Platelet Count 352 K/mm3 (140-440); Red Blood Count 3.05 M/mm3 (3.65-5.03)
[2018-03-08 12:13] LABS: Red Cell Distribution Width 22.3 % (13.2-15.2)
[2018-03-08 12:20] LABS: INR 1.04 (0.87-1.13)
[2018-03-08 12:21] LABS: Partial Thromboplastin Time 35.4 Sec. (24.2-36.6)
[2018-03-08 12:29] LABS: Albumin 3.5 g/dL (3.9-5); Calcium 9.5 mg/dL (8.4-10.2)
[2018-03-08 14:04] VITALS: BP 141/62
--- NOTE | 2018-03-08 14:30 | XRay Report ---
Portable chest: Chest pain. There is a subcutaneous monitor lead in the anterior central chest. The lungs are generally clear. The heart is probably enlarged but there is no vascular congestion. No interval change compared to February 08. Impression: No acute finding.
--- NOTE | 2018-03-08 14:44 | Emergency Department Report ---
ED Abdominal Pain HPI - General Chief Complaint: Abdominal Pain Stated Complaint: CHEST PAIN Time Seen by Provider: 03/08/18 11:37 Source: patient Mode of arrival: Wheelchair Limitations: No Limitations - History of Present Illness Initial Comments: Ms. Molina presents with chest and abdominal pain. It appears that the abdominal pain is her most concern. She has hx of ESRD. She began her dialysis session. However she refused to continue the session due to shoulder pain. She has declined to cooperate with obtaining EKG. Patient has nondescript abdominal pain. No headache. MD Complaint: abdominal pain -: Gradual Location: diffuse Radiation: none Severity: moderate Severity scale (0 -10): 6 Quality: cramping Consistency: constant Improves With: nothing Worsens With: nothing Context: other (loose stools) - Related Data Home Medications Medication Instructions Recorded Confirmed Last Taken Sennosides [Senna Lax] 8.6 mg PO DAILY PRN 09/27/17 03/04/18 02/07/18 ISOSORBIDE MONOnitrate [Imdur ER] 30 mg PO QDAY 10/14/17 03/04/18 02/07/18 Vit B Comp C/Folic Acid/Vit D3 1 each PO DAILY #0 11/05/17 03/04/18 02/07/18 [Dialyvite 800 Plus D Wafer] Previous Rx's Medication Instructions Recorded Last Taken Type Carvedilol [Coreg] 12.5 mg PO BID #60 tablet 06/27/17 02/07/18 Rx Clopidogrel [Plavix] 75 mg PO QDAY #30 tablet 06/27/17 02/07/18 Rx Atorvastatin Calcium [Lipitor] 40 mg PO DAILY #30 tablet 11/06/17 02/07/18 Rx Pantoprazole [Protonix TAB] 40 mg PO QDAY #30 tablet 11/20/17 02/07/18 Rx Dicyclomine [Bentyl] 10 mg PO TID PRN #30 capsule 12/24/17 02/07/18 Rx Nitroglycerin [Nitrostat] 0.4 mg SL .Q5MIN PRN #30 tablet 12/24/17 02/08/18 Rx Ondansetron [Zofran ODT TAB] 4 mg PO Q8H PRN #30 tab.rapdis 12/24/17 02/07/18 Rx Allergies Allergy/AdvReac Type Severity Reaction Status Date / Time No Known Allergies Allergy Verified 10/21/17 05:14 ED Review of Systems ROS: Stated complaint: CHEST PAIN Other details as noted in HPI Comment: All other systems reviewed and negative Constitutional: denies: fever Cardiovascular: chest pain Gastrointestinal: abdominal pain Neurological: headache ED Past Medical Hx - Past Medical History Hx Hypertension: Yes Hx CVA: Yes (x 2) Hx Heart Attack/AMI: No Hx Congestive Heart Failure: Yes Hx Diabetes: No Hx Deep Vein Thrombosis: No Hx GERD: No Hx Liver Disease: No Hx Renal Disease: Yes (Dialysis MWF) Hx Sickle Cell Disease: No Hx Arthritis: Yes Hx Headaches / Migraines: No Hx Seizures: No Hx Kidney Stones: No Hx Asthma: No Hx COPD: No Hx Tuberculosis: No Hx Dementia: No Hx HIV: No Additional medical history: enlarged heart, gout, [facility] CORONARY ANGIOGRAPHY [place] 08/06/2017-NONOBSTRUCTING HEART PER DR GIDEON CALLE, dialysis - Surgical History Hx Coronary Stent: Yes Hx Open Heart Surgery: No Hx Pacemaker: No Hx Internal Defibrillator: No Hx Cholecystectomy: No Hx Appendectomy: No Hx Breast Surgery: No Additional Surgical History: tubal ligation, vas cath. LUE fistula. cardiac workup includes a stress test on 12/21/2016 that was unremarkable. Patient status post PCI of RCA with subsequent subacute thrombus of the proximal RCA stent and angioplasty with resolution of thrombosis on November 2016. AICD placement Aug 2017. PCI 03/22/17 of RCA. 05/01/17 neg Lexiscan stress - Social History Smoking Status: Former Smoker Substance Use Type: None - Medications Home Medications: Home Medications Medication Instructions Recorded Confirmed Last Taken Type Carvedilol [Coreg] 12.5 mg PO BID #60 tablet 06/27/17 03/04/18 02/07/18 Rx Clopidogrel [Plavix] 75 mg PO QDAY #30 tablet 06/27/17 03/04/18 02/07/18 Rx Sennosides [Senna Lax] 8.6 mg PO DAILY PRN 09/27/17 03/04/18 02/07/18 History ISOSORBIDE MONOnitrate [Imdur ER] 30 mg PO QDAY 10/14/17 03/04/18 02/07/18 History Vit B Comp C/Folic Acid/Vit D3 1 each PO DAILY #0 02/03/04/18 02/07/18 History [Dialyvite 800 Plus D Wafer] Atorvastatin Calcium [Lipitor] 40 mg PO DAILY #30 tablet 11/06/17 03/04/1802/07 Rx Pantoprazole [Protonix TAB] 40 mg PO QDAY #30 tablet 11/20/17 03/04/18 02/07/18 Rx Dicyclomine [Bentyl] 10 mg PO TID PRN #30 capsule 12/24/17 03/04/18 02/07/18 Rx Nitroglycerin [Nitrostat] 0.4 mg SL .Q5MIN PRN #30 tablet 12/24/17 03/04/18 Rx Ondansetron [Zofran ODT TAB] 4 mg PO Q8H PRN #30 tab.rapdis 12/24/17 03/04/18 Rx ED Physical Exam - General Limitations: No Limitations General appearance: alert, in no apparent distress - Head Head exam: Present: atraumatic, normocephalic - Eye Eye exam: Present: normal appearance - ENT ENT exam: Present: mucous membranes moist - Neck Neck exam: Present: normal inspection - Respiratory Respiratory exam: Present: normal lung sounds bilaterally. Absent: respiratory distress, wheezes, rales, rhonchi - Cardiovascular Cardiovascular Exam: Present: regular rate, normal rhythm, normal heart sounds. Absent: systolic murmur, diastolic murmur, rubs, gallop - GI/Abdominal GI/Abdominal exam: Present: soft, normal bowel sounds. Absent: distended, tenderness, guarding, rebound - Extremities Exam Extremities exam: Present: normal inspection - Back Exam Back exam: Present: normal inspection - Neurological Exam Neurological exam: Present: alert, oriented X3, normal gait - Psychiatric Psychiatric exam: Present: normal affect, normal mood - Skin Skin exam: Present: warm, dry, intact, normal color. Absent: rash ED Course Vital Signs 03/08/18 03/08/18 03/08/18 10:26 14:03 14:05 Temperature 98.6 F 98.4 F Pulse Rate 80 80 Respiratory 18 18 Rate Blood Pressure 138/64 Blood Pressure 141/62 [Right] O2 Sat by Pulse 98 97 97 Oximetry ED Medical Decision Making - Lab Data Result diagrams: 03/08/18 11:51 03/08/18 11:51 Laboratory Results - last 24 hr 03/08/18 03/08/18 03/08/18 11:51 11:51 11:51 WBC 4.7 RBC 3.05 L Hgb 9.0 L Hct 28.1 L MCV 92 MCH 30 MCHC 32 RDW 22.3 H Plt Count 352 Lymph % (Auto) 21.9 [place] % (Auto) 14.6 H Eos % (Auto) 1.2 Baso % (Auto) 0.5 Lymph # 1.0 L [place] # 0.7 Eos # 0.1 Baso # 0.0 Seg Neutrophils % 61.8 Seg Neutrophils # 2.9 PT 14.1 INR 1.04 APTT 35.4 Sodium 137 Potassium 5.5 H Chloride 95.0 L Carbon Dioxide 27 Anion Gap 21 BUN 51 H Creatinine 7.2 H Estimated GFR 7 BUN/Creatinine Ratio 7 Glucose 92 Calcium 9.5 Total Bilirubin 0.20 AST 14 ALT 8 Alkaline Phosphatase 110 Troponin T 0.499 H* D Total Protein 7.5 Albumin 3.5 L Albumin/Globulin Ratio 0.9 Lipase 31 Vital Signs - 24 hr 03/08/18 03/08/18 03/08/18 10:26 14:03 14:05 Temperature 98.6 F 98.4 F Pulse Rate 80 80 Respiratory 18 18 18 Rate Blood Pressure 138/64 Blood Pressure 141/62 [Right] O2 Sat by Pulse 98 97 97 Oximetry - Medical Decision Making Ms. Molina presents with chest pain and abdominal pain. Unfortunately she was not cooperative with the treatment in the ED. She declined EKG. She declined Tylenol for pain. She eloped prior to final disposition. Prior to elopement, I was attempting to arrange dialysis either inpatient or outpatient with nephrology and the hospitalist service. I reviewed labs. Patient has slightly elevated potassium of 5.5. She had chronically elevated troponin. Critical care attestation.: If time is entered above; I have spent that time in minutes in the direct care of this critically ill patient, excluding procedure time. ED Disposition Clinical Impression: Chest pain, Abdominal pain, ESRD (end stage renal disease) on dialysis Disposition: Z- ELOPED Is pt being admited?: No Does the pt Need Aspirin: No Condition: Stable Time of Disposition: 14:44
== END 2018-03-08 15:34 | disposition left against medical advice (07) ==
LOC: ED 09:47
DX: R10.84 Generalized abdominal pain (principal); R07.9 Chest pain, unspecified; I12.0 Hypertensive chronic kidney disease with stage 5 chronic kidney disease or end stage renal disease; N18.6 End stage renal disease; Z99.2 Dependence on renal dialysis
CPT/HCPCS: 36415; 71045; 80053; 83690; 84484; 85025; 85610; 85730

== ENCOUNTER 2018-03-14 09:43 | Inpatient (IN) | payer MEDICARE ==
--- NOTE | 2018-03-14 11:28 | Emergency Department Report ---
Blank Doc - Documentation Documentation: Patient is a 67-year-old [place] female with past medical history end-stage renal disease who was sent from dialysis because of chest pain nausea vomiting diarrhea. Patient states she's got intense pain in her abdomen since last night. Patient was not given dialysis today because of her symptoms. Patient' s son also called this morning and stated that the patient has been wandering and he is worried about her dementia. Patient is has been coming to the emergency department quite frequently very confused with multiple complaints. Patient's family believes that she may need long-term placement. Patient will have labs ordered and will be assessed from emergency standpoint.
--- NOTE | 2018-03-14 11:51 | Emergency Department Report ---
ED Chest Pain HPI - General Chief Complaint: Back Pain/Injury Stated Complaint: CHEST PAINS SOB Time Seen by Provider: 03/14/18 11:21 Source: patient Mode of arrival: Ambulatory Limitations: No Limitations - History of Present Illness Initial Comments: Ms Molina is a 67 year-old woman with hx of ESRD, HTN, CVA, CHF (EF 30%), GERD, CAD who presents from dialysis with chest pain, nausea, vomiting. Reports left sided chest pain that radiates down ehr arm. Also with nausea and vomiting. Woke up this morning not feeling well. Went to dialysis, checked in and reported her symptoms, sent her to the ED. Son called triage MD and reports that she has been wandering a lot, and they are concerned she is unable to care for herself. Denies fever. Non-bilious vomit. Of note, patient denies she went to dialysis center today. Was dialyzed Sunday and Sunday. Refuses to let us speak with her son, Trey because she thinks he is out to get her. MD Complaint: chest pain - Related Data Home Medications Medication Instructions Recorded Confirmed Last Taken Sennosides [Senna Lax] 8.6 mg PO DAILY PRN 09/27/17 03/04/18 02/07/18 ISOSORBIDE MONOnitrate [Imdur ER] 30 mg PO QDAY 10/14/17 03/04/18 02/07/18 Vit B Comp C/Folic Acid/Vit D3 1 each PO DAILY #0 11/05/17 03/04/18 02/07/18 [Dialyvite 800 Plus D Wafer] Previous Rx's Medication Instructions Recorded Last Taken Type Carvedilol [Coreg] 12.5 mg PO BID #60 tablet 06/27/17 02/07/18 Rx Clopidogrel [Plavix] 75 mg PO QDAY #30 tablet 06/27/17 02/07/18 Rx Atorvastatin Calcium [Lipitor] 40 mg PO DAILY #30 tablet 11/06/17 02/07/18 Rx Pantoprazole [Protonix TAB] 40 mg PO QDAY #30 tablet 11/20/17 02/07/18 Rx Dicyclomine [Bentyl] 10 mg PO TID PRN #30 capsule 12/24/17 02/07/18 Rx Nitroglycerin [Nitrostat] 0.4 mg SL .Q5MIN PRN #30 tablet 12/24/17 02/08/18 Rx Ondansetron [Zofran ODT TAB] 4 mg PO Q8H PRN #30 tab.rapdis 12/24/17 02/07/18 Rx Allergies Allergy/AdvReac Type Severity Reaction Status Date / Time No Known Allergies Allergy Verified 10/21/17 05:14 Heart Score - HEART Score History: Slightly suspicious EKG: Non-specific Age: > 65 Risk factors: > 3 risk factors or hx of atherosclerotic disease Troponin: > 3x normal limit HEART Score: 7 ED Review of Systems ROS: Stated complaint: CHEST PAINS SOB Other details as noted in HPI Comment: All other systems reviewed and negative ED Past Medical Hx - Past Medical History Hx Hypertension: Yes Hx CVA: Yes (x 2) Hx Heart Attack/AMI: No Hx Congestive Heart Failure: Yes Hx Diabetes: No Hx Deep Vein Thrombosis: No Hx GERD: No Hx Liver Disease: No Hx Renal Disease: Yes (Dialysis MWF) Hx Sickle Cell Disease: No Hx Arthritis: Yes Hx Headaches / Migraines: No Hx Seizures: No Hx Kidney Stones: No Hx Asthma: No Hx COPD: No Hx Tuberculosis: No Hx Dementia: No Hx HIV: No Additional medical history: enlarged heart, gout, [facility] CORONARY ANGIOGRAPHY SLOVAN 08/06/2017-NONOBSTRUCTING HEART PER DR GIDEON CALLE, dialysis - Surgical History Hx Coronary Stent: Yes Hx Open Heart Surgery: No Hx Pacemaker: No Hx Internal Defibrillator: No Hx Cholecystectomy: No Hx Appendectomy: No Hx Breast Surgery: No Additional Surgical History: tubal ligation, vas cath. LUE fistula. cardiac workup includes a stress test on 12/21/2016 that was unremarkable. Patient status post PCI of RCA with subsequent subacute thrombus of the proximal RCA stent and angioplasty with resolution of thrombosis on November 2016. AICD placement Aug 2017. PCI 03/22/17 of RCA. 05/01/17 neg Lexiscan stress - Social History Smoking Status: Former Smoker Substance Use Type: None - Medications Home Medications: Home Medications Medication Instructions Recorded Confirmed Last Taken Type Carvedilol [Coreg] 12.5 mg PO BID #60 tablet 06/27/17 03/04/18 02/07/18 Rx Clopidogrel [Plavix] 75 mg PO QDAY #30 tablet 06/27/17 03/04/18 02/07/18 Rx Sennosides [Senna Lax] 8.6 mg PO DAILY PRN 09/27/17 03/04/18 02/07/18 History ISOSORBIDE MONOnitrate [Imdur ER] 30 mg PO QDAY 10/14/17 03/04/18 02/07/18 History Vit B Comp C/Folic Acid/Vit D3 1 each PO DAILY #0 11/05/17 03/04/18 02/07/18 History [Dialyvite 800 Plus D Wafer] Atorvastatin Calcium [Lipitor] 40 mg PO DAILY #30 tablet 11/06/17 03/04/1802/07 Rx Pantoprazole [Protonix TAB] 40 mg PO QDAY #30 tablet 11/20/17 03/04/18 02/07/18 Rx Dicyclomine [Bentyl] 10 mg PO TID PRN #30 capsule 12/24/17 03/04/18 02/07/18 Rx Nitroglycerin [Nitrostat] 0.4 mg SL .Q5MIN PRN #30 tablet 12/24/17 03/04/18 Rx Ondansetron [Zofran ODT TAB] 4 mg PO Q8H PRN #30 tab.rapdis 12/24/17 03/04/18 Rx ED Physical Exam - General Limitations: No Limitations General appearance: alert, in no apparent distress - Head Head exam: Present: atraumatic, normocephalic - Eye Eye exam: Present: normal appearance, PERRL, EOMI - ENT ENT exam: Present: normal exam, mucous membranes moist - Neck Neck exam: Present: normal inspection. Absent: tenderness - Respiratory Respiratory exam: Present: normal lung sounds bilaterally. Absent: respiratory distress, wheezes, rales - Cardiovascular Cardiovascular Exam: Present: regular rate, normal rhythm. Absent: systolic murmur, diastolic murmur, rubs, gallop - GI/Abdominal GI/Abdominal exam: Present: soft, tenderness, other (mild diffuse abdominal ttp) - Extremities Exam Extremities exam: Present: normal inspection - Back Exam Back exam: Present: normal inspection - Neurological Exam Neurological exam: Present: alert, oriented X3 (oriented x 3) - Psychiatric Psychiatric exam: Present: normal affect, normal mood - Skin Skin exam: Present: warm, dry, intact, normal color. Absent: rash ED Course Vital Signs 03/14/18 03/14/18 03/14/18 09:49 12:08 12:19 Temperature 98.5 F Pulse Rate 97 H 85 84 Respiratory 16 19 19 Rate Blood Pressure 131/59 Blood Pressure [Left] O2 Sat by Pulse 99 97 98 Oximetry 03/14/18 03/14/18 03/14/18 12:26 12:31 12:45 Temperature Pulse Rate 83 87 Respiratory 18 25 H Rate Blood Pressure Blood Pressure 135/88 [Left] O2 Sat by Pulse 99 100 Oximetry 03/14/18 03/14/18 03/14/18 13:01 13:15 13:31 Temperature Pulse Rate 92 H 85 90 Respiratory 18 14 22 Rate Blood Pressure 137/65 137/65 Blood Pressure [Left] O2 Sat by Pulse 87 99 90 Oximetry 03/14/18 03/14/18 03/14/18 13:45 14:01 14:15 Temperature Pulse Rate 99 H 91 H 93 H Respiratory 32 H 24 Rate Blood Pressure 137/65 137/65 137/65 Blood Pressure [Left] O2 Sat by Pulse 98 98 96 Oximetry 03/14/18 14:31 Temperature Pulse Rate 92 H Respiratory 20 Rate Blood Pressure 137/65 Blood Pressure [Left] O2 Sat by Pulse 100 Oximetry JACQUES score - Jacques Score Age > 65: (1) Yes Aspirin use within the Past 7 Days: (1) Yes 3 or more CAD Risk Factors: (1) Yes 2 or more Angina events in past 24 hrs: (0) No Known CAD with more than 50% Stenosis: (1) Yes Elevated Cardiac Markers: (1) Yes ST Deviation Greater than 0.5mm: (0) No JACQUES Score: 5 ED Medical Decision Making - Lab Data Result diagrams: 03/14/18 13:29 03/14/18 12:23 Lab Results 03/14/18 03/14/18 03/14/18 Range/Units 12:23 12:23 12:23 WBC (4.5-11.0) K/mm3 RBC (3.65-5.03) M/mm3 Hgb (10.1-14.3) gm/dl Hct (30.3-42.9) % MCV (79-97) fl MCH (28-32) pg MCHC (30-34) % RDW (13.2-15.2) % Plt Count (140-440) K/mm3 Lymph % (Auto) (13.4-35.0) % [place] % (Auto) (0.0-7.3) % Eos % (Auto) (0.0-4.3) % Baso % (Auto) (0.0-1.8) % Lymph # (1.2-5.4) K/mm3 [place] # (0.0-0.8) K/mm3 Eos # (0.0-0.4) K/mm3 Baso # (0.0-0.1) K/mm3 Seg Neutrophils % (40.0-70.0) % Seg Neutrophils # (1.8-7.7) K/mm3 PT 14.5 (12.2-14.9) Sec. INR 1.07 (0.87-1.13) APTT 26.7 (24.2-36.6) Sec. Sodium 140 (137-145) mmol/L Potassium 4.3 (3.6-5.0) mmol/L Chloride 92.2 L (98-107) mmol/L Carbon Dioxide 32 H (22-30) mmol/L Anion Gap 20 mmol/L BUN 25 H (7-17) mg/dL Creatinine 4.8 H (0.7-1.2) mg/dL Estimated GFR 11 ml/min BUN/Creatinine Ratio 5 % Glucose 84 (65-100) mg/dL Calcium 9.7 (8.4-10.2) mg/dL Total Bilirubin 0.40 (0.1-1.2) mg/dL AST 17 (5-40) units/L ALT 8 (7-56) units/L Alkaline Phosphatase 119 (35-129) units/L Troponin T 0.267 H* (0.00-0.029) ng/mL Total Protein 7.7 (6.3-8.2) g/dL Albumin 3.4 L (3.9-5) g/dL Albumin/Globulin Ratio 0.8 % Triglycerides 72 (2-149) mg/dL Cholesterol 182 (50-199) mg/dL LDL Cholesterol Direct 114 (50-130) mg/dL HDL Cholesterol 72 H (40-59) mg/dL Cholesterol/HDL Ratio 2.52 % Lipase 27 (13-60) units/L 06/28/18 06/28/18 Range/Units 13:29 13:29 WBC 4.0 L (4.5-11.0) K/mm3 RBC 3.30 L (3.65-5.03) M/mm3 Hgb 9.6 L (10.1-14.3) gm/dl Hct 29.8 L (30.3-42.9) % MCV 90 (79-97) fl MCH 29 (28-32) pg MCHC 32 (30-34) % RDW 21.9 H (13.2-15.2) % Plt Count 370 (140-440) K/mm3 Lymph % (Auto) 29.4 (13.4-35.0) % [place] % (Auto) 15.3 H (0.0-7.3) % Eos % (Auto) 0.6 (0.0-4.3) % Baso % (Auto) 0.6 (0.0-1.8) % Lymph # 1.2 (1.2-5.4) K/mm3 Beadle # 0.6 (0.0-0.8) K/mm3 Eos # 0.0 (0.0-0.4) K/mm3 Baso # 0.0 (0.0-0.1) K/mm3 Seg Neutrophils % 54.1 (40.0-70.0) % Seg Neutrophils # 2.2 (1.8-7.7) K/mm3 PT (12.2-14.9) Sec. INR (0.87-1.13) APTT (24.2-36.6) Sec. Sodium (137-145) mmol/L Potassium (3.6-5.0) mmol/L Chloride (98-107) mmol/L Carbon Dioxide (22-30) mmol/L Anion Gap mmol/L BUN (7-17) mg/dL Creatinine (0.7-1.2) mg/dL Estimated GFR ml/min BUN/Creatinine Ratio % Glucose (65-100) mg/dL Calcium (8.4-10.2) mg/dL Total Bilirubin (0.1-1.2) mg/dL AST (5-40) units/L ALT (7-56) units/L Alkaline Phosphatase (35-129) units/L Troponin T 0.274 H* (0.00-0.029) ng/mL Total Protein (6.3-8.2) g/dL Albumin (3.9-5) g/dL Albumin/Globulin Ratio % Triglycerides (2-149) mg/dL Cholesterol (50-199) mg/dL LDL Cholesterol Direct (50-130) mg/dL HDL Cholesterol (40-59) mg/dL Cholesterol/HDL Ratio % Lipase (13-60) units/L - EKG Data When compared to previous EKG there are: no significant change 1324: HR 86, sinus, LVH, frequent PVCs, normal axis, lateral TWIs unchanged from previous 03/04/2018 1434: HR 87, sinus, normal axis, LVH, lateral TWI. No change from previous - Medical Decision Making Ms Molina is a 67 year-old woman who presents with report of chest pain, abdominal pain. Per report, arrived to [facility] ED initially asking where her keys are. Then told triage that she might as well check in as her leg hurts. She then told aditi MAYER that she was sent from dialysis center for chest pain. Told me the same thin initially. Then told me she came from home. Case management spoke with her son who is concerned due to her suspected dementia. Has not seen a PCP in years. Son Will: [phone]. Reports left sided chest pain, abdominal pain, nausea and vomiting to me. Exam unremarkable. Initial trop 0.26. Repeat 0.27. Initial EKG and repeat EKG unchanged from previous. Patient refused ASA as she reports she is allergic. Son is on his way to the hospital. Patient needs admission for trending troponins and for likely NH placement. Critical care attestation.: If time is entered above; I have spent that time in minutes in the direct care of this critically ill patient, excluding procedure time. ED Disposition Clinical Impression: ESRD (end stage renal disease) on dialysis, Elevated troponin Chest pain Qualifiers: Chest pain type: other chest pain Qualified Code(s): R07.89 - Other chest pain Disposition: OP ADMIT IP TO THIS HOSP Is pt being admited?: Yes Condition: Stable Instructions: Chest Pain (ED) Referrals: PRIMARY CARE, [Primary Care Provider] - 3-5 Days
[2018-03-14 12:55] LABS: INR 1.07 (0.87-1.13)
[2018-03-14 12:56] LABS: Albumin 3.4 g/dL (3.9-5); Calcium 9.7 mg/dL (8.4-10.2); Partial Thromboplastin Time 26.7 Sec. (24.2-36.6)
[2018-03-14] MEDS ORDERED: ZOFRAN ODT PO ONE (13:39)
[2018-03-14] MEDS ORDERED: ALUM-MAG HYDROX-SIMETH 200-200-20MG/5ML PO ONE (13:40)
[2018-03-14 13:49] LABS: Basophils % (Auto) 0.6 % (0.0-1.8); Eosinophils % (Auto) 0.6 % (0.0-4.3); Hematocrit 29.8 % (30.3-42.9); Hemoglobin 9.6 gm/dl (10.1-14.3); Lymphocytes # (Auto) 1.2 K/mm3 (1.2-5.4); Lymphocytes % (Auto) 29.4 % (13.4-35.0); Mean Corpuscular HGB Conc 32 % (30-34); Mean Corpuscular Hemoglobin 29 pg (28-32); Mean Corpuscular Volume 90 fl (79-97); Monocytes # (Auto) 0.6 K/mm3 (0.0-0.8); Monocytes % (Auto) 15.3 % (0.0-7.3); Platelet Count 370 K/mm3 (140-440)
[2018-03-14 13:56] LABS: Red Cell Distribution Width 21.9 % (13.2-15.2)
[2018-03-14 14:11] LABS: Chol/HDL Ratio 2.52 %
--- NOTE | 2018-03-14 14:24 | History and Physical Report ---
History of Present Illness Chief complaint: Im hurting again doctor, History of present illness: 67 YO Female with HTN, CVA, Combined CHF( EF 30%), DM, ESRD on HD(M,W,F), GERD, CAD S/P Stent Placement, Chronic Pain, Nicotine Dependence presents to ED for evaluation. Pt states that she has experienced generalized pain all over her body. Pt states that she awoke from sleep this morning and felt sick. Pt acknowledges nausea, and 1 episode of vomiting. Pt acknowledges confusion. Pt seen and evaluated in ED and found to have ESRD as well as encephalopathy. PT unable to conduct ADL independently. Pt denies fever, chills, palpitations, productive cough, orthopnea, difficulty breathing, NVD, syncope, vertigo, prolonged immobility/travel, individual/family history of DVT/PE, Skin Rash,or Recent ill contacts. Nephrology team consulted in ED. Past History Past Medical History: CAD, diabetes, ESRD, GERD, heart failure, hypertension, stroke Past Surgical History: Other (stent, vac cath) Social history: , Lives alone. denies: smoking, alcohol abuse, prescription drug abuse Family history: diabetes, hypertension Medications and Allergies Allergies Allergy/AdvReac Type Severity Reaction Status Date / Time No Known Allergies Allergy Verified 10/21/17 05:14 Home Medications Medication Instructions Recorded Confirmed Last Taken Type Carvedilol [Coreg] 12.5 mg PO BID #60 tablet 06/27/17 03/14/18 02/07/18 Rx Clopidogrel [Plavix] 75 mg PO QDAY #30 tablet 06/27/17 03/14/18 02/07/18 Rx Sennosides [Senna Lax] 8.6 mg PO DAILY PRN 09/27/17 03/14/18 02/07/18 History ISOSORBIDE MONOnitrate [Imdur ER] 30 mg PO QDAY 10/14/17 03/14/18 02/07/18 History Vit B Comp C/Folic Acid/Vit D3 1 each PO DAILY #0 11/05/17 03/14/18 02/07/18 History [Dialyvite 800 Plus D Wafer] Atorvastatin Calcium [Lipitor] 40 mg PO DAILY #30 tablet 11/06/17 03/14/1802/07 Rx Pantoprazole [Protonix TAB] 40 mg PO QDAY #30 tablet 0303/14/18 02/07/18 Rx Dicyclomine [Bentyl] 10 mg PO TID PRN #30 capsule 12/24/17 03/14/18 02/07/18 Rx Nitroglycerin [Nitrostat] 0.4 mg SL .Q5MIN PRN #30 tablet 12/24/17 03/14/18 Rx Ondansetron [Zofran ODT TAB] 4 mg PO Q8H PRN #30 tab.rapdis 12/24/17 03/14/18 Rx Review of Systems Constitutional: chronic pain, no weight loss, no weight gain Ears, nose, mouth and throat: no ear pain, no ear discharge, no tinnitis, no decreased hearing, no nose pain, no nasal congestion Breasts: no change in shape, no swelling, no mass Cardiovascular: no chest pain, no orthopnea, no palpitations, no rapid/ irregular heart beat Respiratory: no cough, no cough with sputum, no excessive sputum, no hemoptysis Gastrointestinal: nausea, vomiting, no diarrhea, no constipation, no change in bowel habits, no hematemesis Genitourinary Female: no pelvic pain, no flank pain, no menorrhagia, no dysuria , no urinary frequency, no urgency Rectal: no pain, no incontinence, no bleeding Musculoskeletal: no neck stiffness, no neck pain, no shooting arm pain, no arm numbness/tingling, no low back pain, no shooting leg pain, no leg numbness/ tingling Integumentary: no rash, no pruritis, no redness, no sores, no wounds, no jaundice Neurological: no transient paralysis, no paralysis, no weakness, no parathesias , no numbness, no tingling, no seizures, no syncope Psychiatric: no anxiety, no memory loss, no change in sleep habits, no sleep disturbances, no insomnia, no hypersomnia, no change in appetite, no change in libido Endocrine: no cold intolerance, no heat intolerance, no polyphagia, no excessive thirst, no polydipsia, no polyuria Hematologic/Lymphatic: no easy bruising, no easy bleeding, no lymphadenopathy, no lymphedema Allergic/Immunologic: no urticaria, no allergic rhinitis, no wheezing, no persistent infections, no anaphylaxis, no angioedema Exam - Constitutional Vitals: Temp Pulse Resp BP Pulse Ox 98.5 F 91 H 24 137/65 98 03/14/18 09:49 03/14/18 14:01 03/14/18 14:01 03/14/18 14:01 03/14/18 14:01 General appearance: Present: mild distress - EENT Eyes: Present: PERRL ENT: hearing intact, clear oral mucosa - Neck Neck: Present: supple, normal ROM - Respiratory Respiratory effort: normal Respiratory: bilateral: CTA - Cardiovascular Heart Sounds: Present: S1 & S2. Absent: rub, click - Extremities Extremities: pulses symmetrical, No edema Peripheral Pulses: within normal limits - Abdominal General gastrointestinal: Present: soft, non-tender, non-distended, normal bowel sounds Female genitourinary: Present: normal - Integumentary Integumentary: Present: clear, warm, dry - Musculoskeletal Musculoskeletal: generalized weakness - Psychiatric Psychiatric: no intact judgment & insight, no memory intact - Neurologic Neurologic: CNII-XII intact, moves all extremities Results - Labs CBC & Chem 7: 03/14/18 13:29 03/14/18 12:23 Labs: Abnormal lab results 03/14/18 03/14/18 03/14/18 Range/Units 12:23 12:23 13:29 WBC 4.0 L (4.5-11.0) K/mm3 RBC 3.30 L (3.65-5.03) M/mm3 Hgb 9.6 L (10.1-14.3) gm/dl Hct 29.8 L (30.3-42.9) % RDW 21.9 H (13.2-15.2) % [place] % (Auto) 15.3 H (0.0-7.3) % Chloride 92.2 L (98-107) mmol/L Carbon Dioxide 32 H (22-30) mmol/L BUN 25 H (7-17) mg/dL Creatinine 4.8 H (0.7-1.2) mg/dL Troponin T 0.267 H* (0.00-0.029) ng/mL Albumin 3.4 L (3.9-5) g/dL HDL Cholesterol 72 H (40-59) mg/dL 03/14/18 Range/Units 13:29 WBC (4.5-11.0) K/mm3 RBC (3.65-5.03) M/mm3 Hgb (10.1-14.3) gm/dl Hct (30.3-42.9) % RDW (13.2-15.2) % [place] % (Auto) (0.0-7.3) % Chloride (98-107) mmol/L Carbon Dioxide (22-30) mmol/L BUN (7-17) mg/dL Creatinine (0.7-1.2) mg/dL Troponin T 0.274 H* (0.00-0.029) ng/mL Albumin (3.9-5) g/dL HDL Cholesterol (40-59) mg/dL Assessment and Plan - Patient Problems (1) ESRD (end stage renal disease) on dialysis Current Visit: Yes Status: Chronic Plan to address problem: Nephrology consulted in ED, dialysis as per renal team, renal diet, strict I/o, monitor uop q shift. (2) Encephalopathy Current Visit: Yes Status: Acute Plan to address problem: CT Head, neuro checks, Pt unable to conduct ADL's independently, Case management consulted for placment pending clarification of living arrangement with family. (3) CHF (congestive heart failure) Current Visit: No Status: Acute Qualifiers: Heart failure type: systolic Heart failure chronicity: acute Qualified Code(s): I50.21 - Acute systolic (congestive) heart failure Plan to address problem: Strict I/O, monitor uop q shift, supplemental oxygen, daily weight, afterload reduction. (4) HTN (hypertension) Current Visit: No Status: Acute Qualifiers: Hypertension type: essential hypertension Plan to address problem: monitor bp q shift, supportive care, (5) DVT prophylaxis Current Visit: No Status: Acute Plan to address problem: scd to ble while in bed.
[2018-03-14] MEDS ORDERED: PROVENTIL IH PRN (14:25)
[2018-03-14] MEDS ORDERED: SODIUM CHLORIDE FLUSH SYRINGE 10 ML IV PRN (14:25)
[2018-03-14] MEDS ORDERED: TYLENOL PO PRN (14:25)
[2018-03-14] MEDS ORDERED: ZOFRAN IV PRN (14:25)
[2018-03-14] MEDS ORDERED: ZOFRAN ODT PO PRN (14:29)
[2018-03-14] MEDS ORDERED: NITROSTAT SL PRN (14:29)
[2018-03-14] MEDS ORDERED: SENOKOT PO PRN (14:29)
[2018-03-14] MEDS ORDERED: BENTYL PO PRN (14:29)
--- NOTE | 2018-03-14 15:22 | Cat Scan Report ---
CT HEAD WITHOUT CONTRAST: HISTORY: Confusion. TECHNIQUE: Sequential 2.5mm CT images. COMPARISON: 11/12/17. FINDINGS: Cerebral Parenchyma: Mild nonspecific chronic white matter changes are stable. No evidence for hemorrhage, mass or mass effect. No large area of acute ischemia is appreciated on noncontrast CT. Cerebellum: 2.8 x 2.0 cm chronic infarct in the right cerebellar hemisphere is unchanged.. Brainstem: Within normal limits. Ventricles: Normal. Sella: Normal. Extra-axial spaces: Normal. Basal Cisterns: Normal. Intracranial Hemorrhage: None. Midline Shift: None. Calvarium: Normal. Sinuses: Normal. Mastoid Air Cells: Normal. Visualized Orbits: Normal. IMPRESSION: No acute intracranial process is identified. Chronic white matter changes and chronic right cerebellar infarct. No significant change since 11/12/17.
[2018-03-14] MEDS: PERCOCET 5/325 PO PRN (19:26)
[2018-03-14] MEDS: COREG PO SCH (22:00)
[2018-03-14] MEDS: SODIUM CHLORIDE FLUSH SYRINGE 10 ML IV SCH (22:00)
[2018-03-15] MEDS: PERCOCET 5/325 PO PRN ×3 (05:45→23:24)
--- NOTE | 2018-03-15 08:45 | Consultation ---
History of Present Illness - Reason for Consult Consult date: 03/15/18 end stage renal disease Requesting physician: LULI GARIBAY - History of Present Illness 67-year-old with a history of diabetes mellitus, hypertension and end-stage renal disease on hemodialysis on a Sunday, Sunday and Sunday schedule. Patient has had numerous hospitalizations with uncontrolled hypertension, chest pain, abdominal pain and hyperkalemia secondary to missed dialysis. She has had an extensive evaluation and does have coronary artery disease. She had percutaneous coronary intervention in the past. She presents now because she was having chest and abdominal pain. She describes the abdominal pain is a bad hurting which she rates at 9/10 associated with nausea and vomiting. She also has had diarrhea after every meal. She denies any fever or chills though she felt cold". She also complained of soreness in the left side of his chest associated with shortness of breath and dizziness. Also had episode of diaphoresis. On account of her symptoms patient came to the hospital for evaluation. Past History Past Medical History: CAD, diabetes, ESRD, GERD, heart failure, hypertension, stroke, other (severe pulmonary hypertension, ischemic cardiomyopathy) Past Surgical History: appendectomy, PTCA (tubal ligation, AV fistula creation for dialysis, ICD implantation), Other (stent, vac cath) Social history: , Lives alone. denies: smoking, alcohol abuse, prescription drug abuse, IV drug use Family history: CAD, diabetes, hypertension Medications and Allergies Allergies Allergy/AdvReac Type Severity Reaction Status Date / Time No Known Allergies Allergy Verified 10/21/17 05:14 Home Medications Medication Instructions Recorded Confirmed Last Taken Type Carvedilol [Coreg] 12.5 mg PO BID #60 tablet 06/27/17 03/14/18 02/07/18 Rx Clopidogrel [Plavix] 75 mg PO QDAY #30 tablet 06/27/17 03/14/18 02/07/18 Rx Sennosides [Senna Lax] 8.6 mg PO DAILY PRN 09/27/17 03/14/18 02/07/18 History ISOSORBIDE MONOnitrate [Imdur ER] 30 mg PO QDAY 10/14/17 03/14/18 02/07/18 History Vit B Comp C/Folic Acid/Vit D3 1 each PO DAILY #0 11/05/17 03/14/18 02/07/18 History [Dialyvite 800 Plus D Wafer] Atorvastatin Calcium [Lipitor] 40 mg PO DAILY #30 tablet 11/06/17 03/14/1802/07 Rx Pantoprazole [Protonix TAB] 40 mg PO QDAY #30 tablet 11/20/17 03/14/18 02/07/18 Rx Dicyclomine [Bentyl] 10 mg PO TID PRN #30 capsule 12/24/17 03/14/18 02/07/18 Rx Nitroglycerin [Nitrostat] 0.4 mg SL .Q5MIN PRN #30 tablet 12/24/17 03/14/18 Rx Ondansetron [Zofran ODT TAB] 4 mg PO Q8H PRN #30 tab.rapdis 12/24/17 03/14/18 Rx Active Meds: Active Medications Acetaminophen (Tylenol) 650 mg PO Q4H PRN PRN Reason: Pain MILD(1-3)/Fever >100.5/SANCHEZ Albuterol (Proventil) 2.5 mg IH Q4HRT PRN PRN Reason: Shortness Of Breath Atorvastatin Calcium (Lipitor) 40 mg PO HS [facility] Last Admin: 03/14/18 22:00 Dose: 40 mg Carvedilol (Coreg) 12.5 mg PO BID [facility] Last Admin: 03/14/18 22:00 Dose: 12.5 mg Clopidogrel Bisulfate (Plavix) 75 mg PO QDAY [facility] Dicyclomine HCl (Bentyl) 10 mg PO TID PRN PRN Reason: Pain Isosorbide Mononitrate (Imdur) 30 mg PO QDAY [facility] Multivit/Ca Carb/B Cmplx/FA/Prenat (Renal Caps) 1 cap PO QDAY [facility] Nitroglycerin (Nitrostat) 0.4 mg SL .Q5MIN PRN PRN Reason: Chest Pain Ondansetron HCl (Zofran) 4 mg IV Q8H PRN PRN Reason: Nausea And Vomiting Ondansetron HCl (Zofran Odt) 4 mg PO Q8H PRN PRN Reason: Nausea And Vomiting Oxycodone/Acetaminophen (Percocet 5/325) 1 tab PO Q8H PRN PRN Reason: Pain, Moderate (4-6) Last Admin: 03/15/18 05:45 Dose: 1 tab Pantoprazole Sodium (Protonix) 40 mg PO QDAY ETHAN Senna (Senokot) 8.6 mg PO DAILY PRN PRN Reason: Constipation Sodium Chloride (Sodium Chloride Flush Syringe 10 Ml) 10 ml IV BID ETHAN Last Admin: 03/14/18 22:00 Dose: 10 ml Sodium Chloride (Sodium Chloride Flush Syringe 10 Ml) 10 ml IV PRN PRN PRN Reason: LINE FLUSH Review of Systems All systems: negative (Constitutional: no fever or chills. No anorexia or weight loss. HEENT: No sore throat or sinus drainage no hearing or vision impairment . Cardiovascular: See history of present illness. Respiratory: No cough, sputum, shortness of breath, hemoptysis or wheezing. Gastrointestinal: See history of present illness. No hematemesis or melena. Genitourinary: No frequency urgency dysuria or hematuria. hematologic: No abnormal bleeding or bruising. Integumentary: no pruritus or rash. Neurological: Admits to headache was in the left side, admits to weakness and numbness on the left side. o syncope or seizures. Musculoskeletal: Admits to joint pain and stiffness. Psychiatry: no anxiety or depression) Exam - Vital Signs Vital signs: Vital Signs Temp Pulse Resp BP Pulse Ox 98.5 F 97 H 16 131/59 99 03/14/18 09:49 03/14/18 09:49 03/14/18 09:49 03/14/18 09:49 03/14/18 09:49 - Physical Exam Narrative exam: Elderly F, comfortably lying in bed in no acute distress HEENT: NCAT, pink oral mucous membrane Neck: Supple, no venous distention CVS: S1S2 RRR with no murmur, rub or gallop Chest: Clear to auscultation Abdomen: Protuberant, soft, nontender, no organomegaly, bowel sounds are present Extremities: No edema, no clubbing Skin warm and dry no rash Genitourinary deferred Neuro: Awake, alert no focal deficits Results - Lab Results 03/14/18 13:29 03/14/18 12:23 Most recent lab results Calcium 9.7 mg/dL (8.4-10.2) 03/14/18 12:23 Assessment and Plan - Patient Problems (1) Chest pain Current Visit: Yes Status: Acute Qualifiers: Chest pain type: other chest pain Qualified Code(s): R07.89 - Other chest pain; R07.8 - Other chest pain Plan to address problem: Atypical. Being managed by primary ATTD (2) ESRD (end stage renal disease) on dialysis Current Visit: Yes Status: Chronic Plan to address problem: Hemodialysis today and then on a Sunday, Sunday and Sunday schedule. (3) Abdominal pain Current Visit: No Status: Acute Plan to address problem: Evaluation ongoing. Follow up results (4) Chronic systolic heart failure Current Visit: No Status: Acute Plan to address problem: Stable volume status. Continue beta nikolas (5) Hyperkalemia Current Visit: No Status: Acute Plan to address problem: Continue low potassium diet and follow-up levels (6) Hyperlipidemia Current Visit: No Status: Chronic Qualifiers: Hyperlipidemia type: mixed hyperlipidemia Qualified Code(s): E78.2 - Mixed hyperlipidemia Plan to address problem: Continue low-cholesterol diet and statin (7) Hypertensive chronic kidney disease with stage 5 chronic kidney disease or end stage renal disease Current Visit: No Status: Chronic Plan to address problem: Follow-up blood pressure and current medications
[2018-03-15] MEDS ORDERED: NACL 0.9% 100 ML IV PRN (09:00)
[2018-03-15] MEDS ORDERED: PROCRIT IV PRN (09:00)
[2018-03-15] MEDS: IMDUR PO SCH (09:48)
[2018-03-15] MEDS: Renal Caps PO SCH (09:50)
[2018-03-15] MEDS: PLAVIX PO SCH (09:51)
[2018-03-15] MEDS: PROTONIX PO SCH (09:51)
[2018-03-15] MEDS ORDERED: NON-FORMULARY (Vit B Comp C/Folic Acid/Vit D3 [Dialyvite 800 Plus D Wafer] 1 EACH) PO SCH (10:00)
[2018-03-15] MEDS: COREG PO SCH ×2 (10:04→21:59)
[2018-03-15] MEDS ORDERED: NACL 0.9 (PRIMING MACHINE ONLY DIALYSIS) MC ONE (12:56)
--- NOTE | 2018-03-15 14:06 | Progress Note ---
Assessment and Plan /Recurrent Atypical chest pain, - multiple admission in the past with similar presentation -Pain reproducible with palpation, likely musculoskeletal /Elevated troponin - chronically elevated, cont to trend /Chronic systolic heart failure: - Strict I/O, Monitor UOP q shift, supplemental oxygen, daily weight, remote telemetry, dialysis as per renal team /End-stage renal disease needing dialysis: Nephrology consulted for dialysis, dialysis as per renal team, monitor uop q shift, /HTN, stable with current mneds /DVT prophylaxis: SCD to BLE while in bed. /Abdominal pain, tolerating diet, no N/V - likely from GERD /Noncompliance: counseling done Brief history: Patient is 67 yo woman with HTN, CVA, Combined CHF( EF 30%), DM, ESRD on HD(M,W,F), GERD, CAD S/P Stent Placement, Chronic Pain syndrome and Nicotine Dependence presents to ED for chest pains which prevented her from undergoing dialysis. Physical exam: GEN: NAD, Awake, Alert, Orientated x3 HEENT: NCAT, EOMI, PERRL, OP Clear NECK: supple, no adenopathy, no thyromegaly, no JVD CVS/HEART: RRR, normal S1S2, pulses present bilaterally, chest tenderness on palpation CHEST/LUNGS: CTABL, Symmetrical chest expansion, good air entry bilaterally GI/Abdomen: soft, NTND, good bowel sounds, no guarding or rebound /Bladder: no suprapubic tenderness, no CVA or paraspinal tenderness EXT/Skin: no c/c/e, no obvious rash MSK: FROM x 4 Neuro: CN 2-12 grossly intact, no new focal deficits Psych: calm Subjective Date of service: 03/15/18 Interval history: Pt seen and examined, getting HD c/o chestpain, abdominal pain and generalized body ache Objective - Constitutional Vitals: Vital Signs - 12hr 03/15/18 03/15/18 03/15/18 07:28 09:48 10:00 Temperature Pulse Rate 85 Pulse Rate [ 72 From Monitor] Respiratory 18 Rate Blood Pressure O2 Sat by Pulse 96 Oximetry 03/15/18 03/15/18 03/15/18 10:10 10:30 10:45 Temperature 98.5 F Pulse Rate 83 83 78 Pulse Rate [ From Monitor] Respiratory 18 Rate Blood Pressure 136/70 144/68 131/61 O2 Sat by Pulse Oximetry 03/15/18 03/15/18 03/15/18 11:00 11:15 11:30 Temperature Pulse Rate 75 76 75 Pulse Rate [ From Monitor] Respiratory Rate Blood Pressure 135/67 135/65 128/65 O2 Sat by Pulse Oximetry 03/15/18 03/15/18 03/15/18 11:45 12:00 12:15 Temperature Pulse Rate 74 76 79 Pulse Rate [ From Monitor] Respiratory Rate Blood Pressure 138/64 125/61 132/85 O2 Sat by Pulse Oximetry 03/15/18 12:30 Temperature Pulse Rate 78 Pulse Rate [ From Monitor] Respiratory Rate Blood Pressure 140/69 O2 Sat by Pulse Oximetry - Labs CBC & Chem 7: 03/14/18 13:29 03/14/18 12:23 Labs: Abnormal lab results 03/14/18 03/14/18 03/14/18 Range/Units 12:23 13:29 16:31 POC Glucose 112 H (70-105) Troponin T 0.274 H* (0.00-0.029) ng/mL HDL Cholesterol 72 H (40-59) mg/dL
[2018-03-15] MEDS: SODIUM CHLORIDE FLUSH SYRINGE 10 ML IV SCH ×2 (15:41→21:59)
[2018-03-16] MEDS ORDERED: MOTRIN PO ONE (06:05)
[2018-03-16 07:53] VITALS: BP 128/59
[2018-03-16] MEDS: SODIUM CHLORIDE FLUSH SYRINGE 10 ML IV SCH (09:43)
[2018-03-16] MEDS: IMDUR PO SCH (09:43)
[2018-03-16] MEDS: PLAVIX PO SCH (09:44)
[2018-03-16] MEDS: Renal Caps PO SCH (09:44)
[2018-03-16] MEDS: PROTONIX PO SCH (09:46)
[2018-03-16] MEDS: COREG PO SCH (11:08)
--- NOTE | 2018-03-16 11:31 | Discharge Summary ---
Providers - Providers Date of Admission: 03/14/18 14:25 Date of discharge: 03/16/18 Attending physician: LULI GARIBAY 03/14/18 14:29 Consult to Case Management [CONS] Routine Services Needed at Discharge: Other Notified:: yes Phone number called:: [phone] Was contact made?: Yes If yes, spoke with:: spoke to mary Time called:: 16:05 Comment:: tawny Additional Physician Instructions: Please send out for SNF placement as per family request 03/14/18 16:40 Physical Therapy Evaluation and Treat [CONS] Routine Comment: SNF Placement Reason For Exam: GENERAL WEAKNESS 03/14/18 16:41 Occupational Therapy Evaluate and Treat [CONS] Routine Comment: SNF Placement Reason For Exam: Generalized Weakness 03/15/18 08:36 Consult to Physician [CONS] Routine Comment: Consulting Provider: VERA RAMSEY Physician Instructions: For dialysis - schedule M/W/F Reason For Exam: ESRD w/Hemodialysis Primary care physician: KITCHENHAND Hospitalization Condition: Stable Hospital course: Brief history: Patient is 67 yo woman with HTN, CVA, Combined CHF( EF 30%), DM, ESRD on HD(M,W,F), GERD, CAD S/P Stent Placement, Chronic Pain syndrome and Nicotine Dependence presents to ED for chest pains which prevented her from undergoing dialysis. Discharge diagnosis and management: /Recurrent Atypical chest pain, - multiple admission in the past with similar presentation -Pain reproducible with palpation, likely musculoskeletal /Elevated troponin - chronically elevated, stress test on 12/2017 did not reveal acute ischemia - likely from underlying cardiac and renal disease /Chronic systolic heart failure: - Strict I/O, Monitor UOP q shift, supplemental oxygen, daily weight, remote telemetry, dialysis as per renal team /End-stage renal disease needing dialysis: Nephrology consulted for dialysis, dialysis as per renal team, monitor uop q shift, /HTN, stable with current mneds /DVT prophylaxis: SCD to BLE while in bed. /Abdominal pain, tolerating diet, no N/V - likely from GERD /CAD s/p stent placement: cont asp, plavix, statin /Noncompliance: counseling done Physical exam: GEN: NAD, Awake, Alert, Orientated x3 HEENT: NCAT, EOMI, PERRL, OP Clear NECK: supple, no adenopathy, no thyromegaly, no JVD CVS/HEART: RRR, normal S1S2, pulses present bilaterally, chest tenderness on palpation CHEST/LUNGS: CTABL, Symmetrical chest expansion, good air entry bilaterally GI/Abdomen: soft, NTND, good bowel sounds, no guarding or rebound /Bladder: no suprapubic tenderness, no CVA or paraspinal tenderness EXT/Skin: no c/c/e, no obvious rash MSK: FROM x 4 Neuro: CN 2-12 grossly intact, no new focal deficits Psych: calm Disposition: DC- TO HOME OR SELFCARE Time spent for discharge: 34 minutes Core Measure Documentation - Palliative Care Palliative Care/ Comfort Measures: Not Applicable - Core Measures Any of the following diagnoses?: history only Exam - Constitutional Vitals: Temp Pulse Resp BP Pulse Ox 99.5 F 85 18 128/59 100 03/16/18 07:16 03/16/18 11:08 03/16/18 07:16 03/16/18 11:08 03/16/18 10:00 Plan Activity: advance as tolerated Weight Bearing Status: Non-Weight Bearing Diet: low fat, low salt Additional Instructions: f/u with negative assembler outpt Follow up with: PRIMARY CAREMD [Primary Care Provider] - 3-5 Days Prescriptions: Aspirin EC [Aspirin Enteric Coated TAB] 81 mg PO QDAY #30 tablet.
== END 2018-03-16 13:20 | DRG 70 ==
LOC: ED 09:43 → 2B-ACE 14:25
PROVIDERS: ADMIT Internal Medicine; ATTEND Internal Medicine
PROC: 5A1D70Z Performance of Urinary Filtration, Intermittent, Less than 6 Hours Per Day (ICD-10-PCS; principal; 2018-03-15)
DX: G93.40 Encephalopathy, unspecified (principal); N18.6 End stage renal disease; I13.2 Hypertensive heart and chronic kidney disease with heart failure and with stage 5 chronic kidney disease, or end stage renal disease; I50.42 Chronic combined systolic (congestive) and diastolic (congestive) heart failure; R07.89 Other chest pain; Z99.2 Dependence on renal dialysis; E11.22 Type 2 diabetes mellitus with diabetic chronic kidney disease; Z86.73 Personal history of transient ischemic attack (TIA), and cerebral infarction without residual deficits; I25.10 Atherosclerotic heart disease of native coronary artery without angina pectoris; K21.9 Gastro-esophageal reflux disease without esophagitis; Z95.5 Presence of coronary angioplasty implant and graft; G89.4 Chronic pain syndrome; Z91.14 Patient's other noncompliance with medication regimen; Z60.2 Problems related to living alone; Z83.3 Family history of diabetes mellitus; Z82.49 Family history of ischemic heart disease and other diseases of the circulatory system; I27.20 Pulmonary hypertension, unspecified; I25.5 Ischemic cardiomyopathy; Z98.51 Tubal ligation status; Z95.810 Presence of automatic (implantable) cardiac defibrillator; E78.5 Hyperlipidemia, unspecified; E87.5 Hyperkalemia; M19.90 Unspecified osteoarthritis, unspecified site; M10.9 Gout, unspecified; Z87.891 Personal history of nicotine dependence
CPT/HCPCS: 36415; 70450; 80053; 80061; 82962; 83690; 84484; 85025; 85610; 85730; 93005; 93010; A9270-GY; G8978-GP; G8979-GP; G8980-GP; J0885; J7030; Q0162

== ENCOUNTER 2018-03-18 09:53 | Emergency (ER) | payer MEDICARE ==
[2018-03-18] MEDS ORDERED: ASPIRIN PO ONE (10:08)
[2018-03-18 10:28] VITALS: BP 136/48
[2018-03-18 10:30] LABS: Basophils % (Auto) 0.6 % (0.0-1.8); Eosinophils # (Auto) 0.1 K/mm3 (0.0-0.4); Eosinophils % (Auto) 2.3 % (0.0-4.3); Hematocrit 26.4 % (30.3-42.9); Hemoglobin 8.4 gm/dl (10.1-14.3); Lymphocytes # (Auto) 0.9 K/mm3 (1.2-5.4); Lymphocytes % (Auto) 17.3 % (13.4-35.0); Mean Corpuscular HGB Conc 32 % (30-34); Mean Corpuscular Hemoglobin 29 pg (28-32); Mean Corpuscular Volume 92 fl (79-97); Monocytes # (Auto) 0.6 K/mm3 (0.0-0.8); Monocytes % (Auto) 12.1 % (0.0-7.3); Platelet Count 306 K/mm3 (140-440); Red Blood Count 2.88 M/mm3 (3.65-5.03); Red Cell Distribution Width 21.6 % (13.2-15.2)
[2018-03-18 10:50] LABS: Calcium 9.6 mg/dL (8.4-10.2)
--- NOTE | 2018-03-18 11:20 | Emergency Department Report ---
ED Chest Pain HPI - General Chief Complaint: Chest Pain Stated Complaint: CHEST PAIN Time Seen by Provider: 03/18/18 10:41 Source: patient, EMS Mode of arrival: Stretcher Limitations: No Limitations - History of Present Illness MD Complaint: chest pain, other (abdominal pain) -: Gradual, month(s) (several months) Onset: during rest Pain Location: substernal Pain Radiation: none Severity: severe Severity scale (0 -10): 10 Quality: aching Consistency: constant Improves With: nothing Worsens With: nothing - Related Data Home Medications Medication Instructions Recorded Confirmed Last Taken Sennosides [Senna Lax] 8.6 mg PO DAILY PRN 09/27/17 03/14/18 02/07/18 ISOSORBIDE MONOnitrate [Imdur ER] 30 mg PO QDAY 10/14/17 03/14/18 02/07/18 Vit B Comp C/Folic Acid/Vit D3 1 each PO DAILY #0 11/05/17 03/14/18 02/07/18 [Dialyvite 800 Plus D Wafer] Previous Rx's Medication Instructions Recorded Last Taken Type Carvedilol [Coreg] 12.5 mg PO BID #60 tablet 06/27/17 02/07/18 Rx Clopidogrel [Plavix] 75 mg PO QDAY #30 tablet 06/27/17 02/07/18 Rx Atorvastatin Calcium [Lipitor] 40 mg PO DAILY #30 tablet 11/06/17 02/07/18 Rx Pantoprazole [Protonix TAB] 40 mg PO QDAY #30 tablet 11/20/17 02/07/18 Rx Dicyclomine [Bentyl] 10 mg PO TID PRN #30 capsule 12/24/17 02/07/18 Rx Nitroglycerin [Nitrostat] 0.4 mg SL .Q5MIN PRN #30 tablet 12/24/17 02/08/18 Rx Ondansetron [Zofran ODT TAB] 4 mg PO Q8H PRN #30 tab.rapdis 12/24/17 02/07/18 Rx Aspirin EC [Aspirin Enteric Coated 81 mg PO QDAY #30 tablet. 03/16/18 Unknown Rx TAB] Allergies Allergy/AdvReac Type Severity Reaction Status Date / Time No Known Allergies Allergy Verified 03/18/18 11:07 Heart Score - HEART Score History: Slightly suspicious EKG: Non-specific Age: > 65 Risk factors: > 3 risk factors or hx of atherosclerotic disease Troponin: 1-3x normal limit HEART Score: 6 ED Review of Systems ROS: Stated complaint: CHEST PAIN Other details as noted in HPI Comment: All other systems reviewed and negative Constitutional: denies: fever, malaise Respiratory: denies: cough Cardiovascular: chest pain Gastrointestinal: abdominal pain ED Past Medical Hx - Past Medical History Hx Hypertension: Yes Hx CVA: Yes (x 2) Hx Heart Attack/AMI: No Hx Congestive Heart Failure: Yes Hx Diabetes: No (H&P reports Diabetes Mellitus) Hx Deep Vein Thrombosis: No Hx GERD: Yes Hx Liver Disease: No Hx Renal Disease: Yes (Dialysis MWF) Hx Sickle Cell Disease: No Hx Arthritis: Yes Hx Headaches / Migraines: No Hx Seizures: No Hx Kidney Stones: No Hx Asthma: No Hx COPD: No Hx Tuberculosis: No Hx Dementia: No Hx HIV: No Additional medical history: enlarged heart, gout, LCH CORONARY ANGIOGRAPHY [place] 08/06/2017-NONOBSTRUCTING HEART PER DR GIDEON CALLE, dialysis - Surgical History Hx Coronary Stent: Yes Hx Open Heart Surgery: No Hx Pacemaker: No Hx Internal Defibrillator: No Hx Cholecystectomy: No Hx Appendectomy: No Hx Breast Surgery: No Additional Surgical History: tubal ligation, vas cath. LUE fistula. cardiac workup includes a stress test on 12/21/2016 that was unremarkable. Patient status post PCI of RCA with subsequent subacute thrombus of the proximal RCA stent and angioplasty with resolution of thrombosis on November 2016. AICD placement Aug 2017. PCI 03/22/17 of RCA. 05/01/17 neg Lexiscan stress - Social History Smoking Status: Current Some Day Smoker Substance Use Type: None - Medications Home Medications: Home Medications Medication Instructions Recorded Confirmed Last Taken Type Carvedilol [Coreg] 12.5 mg PO BID #60 tablet 06/27/17 03/14/18 02/07/18 Rx Clopidogrel [Plavix] 75 mg PO QDAY #30 tablet 06/27/17 03/14/18 02/07/18 Rx Sennosides [Senna Lax] 8.6 mg PO DAILY PRN 09/27/17 03/14/18 02/07/18 History ISOSORBIDE MONOnitrate [Imdur ER] 30 mg PO QDAY 10/14/17 03/14/1802/07/18 History Vit B Comp C/Folic Acid/Vit D3 1 each PO DAILY #0 11/05/17 03/14/18 02/07/18 History [Dialyvite 800 Plus D Wafer] Atorvastatin Calcium [Lipitor] 40 mg PO DAILY #30 tablet 11/06/17 03/14/1802/07 Rx Pantoprazole [Protonix TAB] 40 mg PO QDAY #30 tablet 11/20/17 03/14/18 02/07/18 Rx Dicyclomine [Bentyl] 10 mg PO TID PRN #30 capsule 12/24/17 03/14/18 02/07/18 Rx Nitroglycerin [Nitrostat] 0.4 mg SL .Q5MIN PRN #30 tablet 12/24/17 03/14/18 Rx Ondansetron [Zofran ODT TAB] 4 mg PO Q8H PRN #30 tab.rapdis 12/24/17 03/14/18 Rx Aspirin EC [Aspirin Enteric Coated 81 mg PO QDAY #30 tablet. 03/16/18 Unknown Rx TAB] ED Physical Exam - General Limitations: No Limitations General appearance: alert, in no apparent distress - Head Head exam: Present: atraumatic, normocephalic - Eye Eye exam: Present: normal appearance - ENT ENT exam: Present: mucous membranes moist - Neck Neck exam: Present: normal inspection - Respiratory Respiratory exam: Present: normal lung sounds bilaterally. Absent: respiratory distress, wheezes, rales, rhonchi - Cardiovascular Cardiovascular Exam: Present: regular rate, normal rhythm, normal heart sounds. Absent: systolic murmur, diastolic murmur, rubs, gallop - GI/Abdominal GI/Abdominal exam: Present: soft, normal bowel sounds. Absent: distended, tenderness, guarding, rebound - Extremities Exam Extremities exam: Present: normal inspection - Back Exam Back exam: Present: normal inspection - Neurological Exam Neurological exam: Present: alert, oriented X3 - Psychiatric Psychiatric exam: Present: normal affect, normal mood - Skin Skin exam: Present: warm, dry, intact, normal color. Absent: rash ED Course Vital Signs 03/18/18 03/18/18 09:58 10:08 Temperature 98.6 F Pulse Rate 81 Respiratory 24 24 Rate Blood Pressure 136/48 O2 Sat by Pulse 95 95 Oximetry MONE score - Mone Score Age > 65: (1) Yes Aspirin use within the Past 7 Days: (1) Yes 3 or more CAD Risk Factors: (1) Yes 2 or more Angina events in past 24 hrs: (0) No Known CAD with more than 50% Stenosis: (1) Yes Elevated Cardiac Markers: (1) Yes ST Deviation Greater than 0.5mm: (0) No MONE Score: 5 ED Medical Decision Making - Lab Data Result diagrams: 03/18/18 10:17 03/18/18 10:16 Laboratory Results - last 24 hr 03/18/18 03/18/18 10:16 10:17 WBC 5.4 RBC 2.88 L Hgb 8.4 L Hct 26.4 L MCV 92 MCH 29 MCHC 32 RDW 21.6 H Plt Count 306 Lymph % (Auto) 17.3 Harper % (Auto) 12.1 H Eos % (Auto) 2.3 Baso % (Auto) 0.6 Lymph # 0.9 L Harper # 0.6 Eos # 0.1 Baso # 0.0 Seg Neutrophils % 67.7 Seg Neutrophils # 3.6 Sodium 140 Potassium 5.2 H D Chloride 96.9 L Carbon Dioxide 28 Anion Gap 20 BUN 73 H Creatinine 8.6 H D Estimated GFR 6 BUN/Creatinine Ratio 8 Glucose 86 Calcium 9.6 Troponin T 0.273 H* D Vital Signs - 24 hr 03/18/18 03/18/18 09:58 10:08 Temperature 98.6 F Pulse Rate 81 Respiratory 24 24 Rate Blood Pressure 136/48 O2 Sat by Pulse 95 95 Oximetry - EKG Data When compared to previous EKG there are: no significant change Interpretation: no acute changes, LVH 03/18/18 11:21 EKG obtained 1017 Rate 80 bpm normal axis positive LVH no ST elevation no gross ischemic changes unchanged from previous EKG - Medical Decision Making Ms. Molina has hx of CAD and ESRD. She has recurrent chest and abdominal pain. Troponin level at baseline for patient. I don not suspect ACS or acute medical condition which needs further care. With potassium 5.2, Ms. Molina does not need urgent dialysis. I have offered analgesia in pill form. She repeatedly decline the medication. She insisted on medication in injection form. She is discharged in stable condition. I do suspect Ms. Molina has persistent chest and abdominal pain. However, I am concerned for depression or dementia leading to frequent ED visits. I am concerned that she is noncompliant with hemodialysis. She would benefit from home health or SNF. Critical care attestation.: If time is entered above; I have spent that time in minutes in the direct care of this critically ill patient, excluding procedure time. ED Disposition Clinical Impression: Recurrent chest pain, Recurrent abdominal pain, CAD (coronary artery disease), ESRD (end stage renal disease) on dialysis Disposition: TO HOME OR SELFCARE Is pt being admited?: No Does the pt Need Aspirin: No Condition: Stable Instructions: Angina (ED) Referrals: PRIMARY CARE, [Primary Care Provider] - 3-5 Days Time of Disposition: 11:26
== END 2018-03-18 11:40 | disposition home or self-care (01) ==
LOC: ED 09:53
DX: I25.810 Atherosclerosis of coronary artery bypass graft(s) without angina pectoris (principal); I12.0 Hypertensive chronic kidney disease with stage 5 chronic kidney disease or end stage renal disease; N18.6 End stage renal disease; K21.9 Gastro-esophageal reflux disease without esophagitis; Z99.2 Dependence on renal dialysis; Z98.51 Tubal ligation status; Z72.0 Tobacco use
CPT/HCPCS: 36415; 80048; 84484; 85025; 93005; 93010

== ENCOUNTER 2018-03-22 11:30 | Emergency (ER) | payer MEDICARE ==
[2018-03-22] MEDS ORDERED: ASPIRIN PO ONE (11:56)
[2018-03-22 12:33] LABS: Basophils % (Auto) 0.5 % (0.0-1.8); Eosinophils % (Auto) 0.4 % (0.0-4.3); Hematocrit 25.1 % (30.3-42.9); Lymphocytes # (Auto) 0.9 K/mm3 (1.2-5.4); Lymphocytes % (Auto) 15.4 % (13.4-35.0); Mean Corpuscular HGB Conc 32 % (30-34); Mean Corpuscular Hemoglobin 29 pg (28-32); Mean Corpuscular Volume 91 fl (79-97); Monocytes # (Auto) 0.9 K/mm3 (0.0-0.8); Monocytes % (Auto) 15.1 % (0.0-7.3); Platelet Count 274 K/mm3 (140-440); Red Blood Count 2.77 M/mm3 (3.65-5.03)
[2018-03-22 12:36] LABS: Red Cell Distribution Width 21.3 % (13.2-15.2)
[2018-03-22 12:42] LABS: INR 1.06 (0.87-1.13)
[2018-03-22 12:43] LABS: Partial Thromboplastin Time 36.3 Sec. (24.2-36.6)
[2018-03-22 12:48] LABS: Calcium 9.1 mg/dL (8.4-10.2)
[2018-03-22 13:08] LABS: Chol/HDL Ratio 2.26 %
[2018-03-22] MEDS ORDERED: ALUM-MAG HYDROX-SIMETH 200-200-20MG/5ML PO ONE (13:49)
[2018-03-22] MEDS ORDERED: TYLENOL PO ONE (13:49)
--- NOTE | 2018-03-22 14:51 | XRay Report ---
AP CHEST: HISTORY: Chest pain Moderate cardiomegaly and pulmonary venous congestion have increased since 03/08/18. The lungs are generally clear. No evidence for pneumonia, large pleural effusion or pneumothorax. Stimulator device is unchanged. IMPRESSION: Moderate cardiomegaly and pulmonary venous congestion but no CHF.
--- NOTE | 2018-03-22 14:52 | XRay Report ---
RIGHT FEMUR: HISTORY: Fall, leg pain. AP and lateral views of the femur demonstrate normal mineralization and contours for this patient's age. No fracture or bone lesion is identified. There are moderate degenerative changes at the hip and knee. IMPRESSION: No evidence for acute injury to the right femur.
--- NOTE | 2018-03-22 14:52 | XRay Report ---
RIGHT KNEE, 2 views: History: Fall, leg pain The bony architecture is intact without evidence of fracture or dislocation. Mild to moderate osteoarthritic changes are noted in the medial compartment and patellofemoral space. No significant soft tissue abnormality is seen. IMPRESSION: Osteoarthritis. No acute injury is identified.
--- NOTE | 2018-03-22 14:53 | XRay Report ---
AP PELVIS: HISTORY: Fall, leg pain. Osteopenia. AP view of the pelvis shows normal pelvic contour and soft tissues. The hips are symmetric and within normal limits as are the sacroiliac joints. IMPRESSION: Osteopenia. No acute pelvic injury is appreciated on x-ray.
--- NOTE | 2018-03-22 17:01 | Emergency Department Report ---
ED General Adult HPI - General Chief complaint: Chest Pain Stated complaint: C/P X3 DAYS Time Seen by Provider: 03/22/18 13:37 Source: patient, RN notes reviewed, old records reviewed Mode of arrival: Wheelchair Limitations: No Limitations - History of Present Illness Initial comments: This is a 67-year-old female whom I have evaluated in the past. Patient has a past medical history of heart disease status post PCI, end-stage renal disease on dialysis, hypertension, peripheral vascular disease, Randolph's esophagitis, diverticulitis, medical noncompliance and chronic chest wall pain, upper abdominal pain and back pain. Patient was recently admitted to this hospital for chest pain, and seen and evaluated by her private cloth shrinker, who did not recommend any ischemic workup; please see their full consultation from 03/05/2018. Patient was instructed to follow-up with the outpatient cloth shrinker within 1-2 weeks of hospital discharge, which she has not done. Patient also has a history of possible narcotic seeking tendencies and narcotic dependency. The patient presents to the ER today with her typical complaint of anterior chest wall pain, left deltoid pain, and epigastric pain. She reports her pain typically improves with IV or IM narcotics. She endorses her typical constellation of malaise, fatigue, and total body pain. -: Gradual, days(s) Location: chest, abdomen, left, upper extremity Severity scale (0 -10): 10 Quality: aching Consistency: intermittent Improves with: medication, rest Worsens with: movement Associated Symptoms: chest pain, malaise, shortness of breath (chronic), weakness. denies: confusion, cough, diaphoresis, fever/chills, headaches, loss of appetite, nausea/vomiting, rash, seizure, syncope - Related Data Home Medications Medication Instructions Recorded Confirmed Last Taken Sennosides [Senna Lax] 8.6 mg PO DAILY PRN 09/27/17 03/14/18 02/07/18 ISOSORBIDE MONOnitrate [Imdur ER] 30 mg PO QDAY 10/14/17 03/14/18 02/07/18 Vit B Comp C/Folic Acid/Vit D3 1 each PO DAILY #0 11/05/17 03/14/18 02/07/18 [Dialyvite 800 Plus D Wafer] Previous Rx's Medication Instructions Recorded Last Taken Type Carvedilol [Coreg] 12.5 mg PO BID #60 tablet 06/27/17 02/07/18 Rx Clopidogrel [Plavix] 75 mg PO QDAY #30 tablet 06/27/17 02/07/18 Rx Atorvastatin Calcium [Lipitor] 40 mg PO DAILY #30 tablet 11/06/17 02/07/18 Rx Pantoprazole [Protonix TAB] 40 mg PO QDAY #30 tablet 11/20/17 02/07/18 Rx Dicyclomine [Bentyl] 10 mg PO TID PRN #30 capsule 12/24/17 02/07/18 Rx Nitroglycerin [Nitrostat] 0.4 mg SL .Q5MIN PRN #30 tablet 12/24/17 02/08/18 Rx Ondansetron [Zofran ODT TAB] 4 mg PO Q8H PRN #30 tab.rapdis 12/24/17 02/07/18 Rx Aspirin EC [Aspirin Enteric Coated 81 mg PO QDAY #30 tablet. 03/16/18 Unknown Rx TAB] Acetaminophen [Tylenol Arthritis] 650 mg PO Q6HR PRN #30 tablet.er 03/22/18 Unknown Rx Allergies Allergy/AdvReac Type Severity Reaction Status Date / Time No Known Allergies Allergy Verified 03/18/18 11:07 ED Review of Systems ROS: Stated complaint: C/P X3 DAYS Other details as noted in HPI Constitutional: malaise. denies: fever Eyes: denies: eye discharge ENT: denies: epistaxis Respiratory: shortness of breath Cardiovascular: chest pain Gastrointestinal: abdominal pain Musculoskeletal: back pain, arthralgia, myalgia Neurological: weakness Psychiatric: as per HPI ED Past Medical Hx - Past Medical History Hx Hypertension: Yes Hx CVA: Yes (x 2) Hx Heart Attack/AMI: No Hx Congestive Heart Failure: Yes Hx Diabetes: No (H&P reports Diabetes Mellitus) Hx Deep Vein Thrombosis: No Hx GERD: Yes Hx Liver Disease: No Hx Renal Disease: Yes (Dialysis MWF) Hx Sickle Cell Disease: No Hx Arthritis: Yes Hx Headaches / Migraines: No Hx Seizures: No Hx Kidney Stones: No Hx Asthma: No Hx COPD: No Hx Tuberculosis: No Hx Dementia: No Hx HIV: No Additional medical history: enlarged heart, gout, LCH CORONARY ANGIOGRAPHY ATCO 08/06/2017-NONOBSTRUCTING HEART PER DR GIDEON CALLE, dialysis - Surgical History Hx Coronary Stent: Yes Hx Open Heart Surgery: No Hx Pacemaker: No Hx Internal Defibrillator: No Hx Cholecystectomy: No Hx Appendectomy: No Hx Breast Surgery: No Additional Surgical History: tubal ligation, vas cath. LUE fistula. cardiac workup includes a stress test on 12/21/2016 that was unremarkable. Patient status post PCI of RCA with subsequent subacute thrombus of the proximal RCA stent and angioplasty with resolution of thrombosis on November 2016. AICD placement Aug 2017. PCI 03/22/17 of RCA. 05/01/17 neg Lexiscan stress - Social History Smoking Status: Current Every Day Smoker Substance Use Type: None - Medications Home Medications: Home Medications Medication Instructions Recorded Confirmed Last Taken Type Carvedilol [Coreg] 12.5 mg PO BID #60 tablet 06/27/17 03/14/18 02/07/18 Rx Clopidogrel [Plavix] 75 mg PO QDAY #30 tablet 06/27/17 03/14/18 02/07/18 Rx Sennosides [Senna Lax] 8.6 mg PO DAILY PRN 09/27/17 03/14/18 02/07/18 History ISOSORBIDE MONOnitrate [Imdur ER] 30 mg PO QDAY 10/14/17 03/14/18 02/07/18 History Vit B Comp C/Folic Acid/Vit D3 1 each PO DAILY #0 11/05/17 03/14/18 02/07/18 History [Dialyvite 800 Plus D Wafer] Atorvastatin Calcium [Lipitor] 40 mg PO DAILY #30 tablet 11/06/17 03/14/1802/07 Rx Pantoprazole [Protonix TAB] 40 mg PO QDAY #30 tablet 11/20/17 03/14/18 02/07/18 Rx Dicyclomine [Bentyl] 10 mg PO TID PRN #30 capsule 12/24/17 03/14/18 02/07/18 Rx Nitroglycerin [Nitrostat] 0.4 mg SL .Q5MIN PRN #30 tablet 12/24/17 03/14/18 Rx Ondansetron [Zofran ODT TAB] 4 mg PO Q8H PRN #30 tab.rapdis 12/24/17 03/14/18 Rx Aspirin EC [Aspirin Enteric Coated 81 mg PO QDAY #30 tablet. 03/16/18 Unknown Rx TAB] Acetaminophen [Tylenol Arthritis] 650 mg PO Q6HR PRN #30 tablet.er 03/22/18 Unknown Rx ED Physical Exam - General Limitations: No Limitations General appearance: alert, in no apparent distress - Head Head exam: Present: atraumatic, normocephalic - Eye Eye exam: Present: normal appearance, EOMI. Absent: nystagmus - ENT ENT exam: Present: normal exam, normal orophraynx, mucous membranes moist, normal external ear exam - Neck Neck exam: Present: normal inspection, full ROM - Respiratory Respiratory exam: Present: normal lung sounds bilaterally, chest wall tenderness. Absent: respiratory distress - Cardiovascular Cardiovascular Exam: Present: regular rate, normal rhythm, normal heart sounds. Absent: systolic murmur, diastolic murmur, rubs, gallop - GI/Abdominal GI/Abdominal exam: Present: soft, normal bowel sounds. Absent: distended, tenderness, guarding, rebound, rigid, pulsatile mass - Extremities Exam Extremities exam: Present: normal inspection, full ROM, tenderness (there is no pelvic tenderness. There is no femur tenderness. Right knee is tender. There is no tibial or fibular tenderness.), other (left upper extremity AV fistula, with no redness, pus or streaking). Absent: pedal edema, joint swelling, calf tenderness - Back Exam Back exam: Present: normal inspection. Absent: tenderness, CVA tenderness (R), paraspinal tenderness, vertebral tenderness - Neurological Exam Neurological exam: Present: alert, oriented X3, CN II-XII intact, normal gait, other (Extraocular movements intact. Tongue midline. No facial droop. Facial sensation intact to light touch in the V1, V2, V3 distribution bilaterally. 5 and 5 strength in 4 extremities.. Sensation is intact to light touch in 4 extremities.). Absent: motor sensory deficit - Psychiatric Psychiatric exam: Present: normal affect, normal mood - Skin Skin exam: Present: warm, dry, intact, normal color. Absent: rash ED Course Vital Signs 03/22/18 03/22/18 11:51 16:01 Temperature 98.8 F Pulse Rate 92 H 101 H Respiratory 22 20 Rate Blood Pressure 154/66 Blood Pressure 167/94 [Right] O2 Sat by Pulse 95 97 Oximetry - Reevaluation(s) Reevaluation #1: 03/22/18 17:20 Differential diagnosis, including but not limited to: Costochondritis, chronic pain syndrome, drug-seeking behavior, mechanical fall Assessment and plan: 67-year-old female who has presented to this hospital multiple times for chest wall pain. Patient has chronically elevated troponin which is likely secondary to her underlying renal insufficiency. Patient made multiple requests for IM or IV narcotics which I did not think was appropriate. The patient declined oral medications. I contacted her private health plan specialist, Dr. Rashid, he indicated the patient could be set up for dialysis tomorrow, and that she would have to call first thing in the morning to get dialysis arranged. Also contacted her cloth shrinker, Yady Lazaro, who recommended troponin 2, EKG 2, and close outpatient follow-up. Patient has been seen walking around the ER 4 hours without difficulty, making multiple requests for pain medicine, but no episodes of hypoxia 03/22/18 17:22 ED Medical Decision Making - Lab Data Result diagrams: 03/22/18 12:12 03/22/18 12:12 Vital Signs 03/22/18 03/22/18 11:51 16:01 Temperature 98.8 F Pulse Rate 92 H 101 H Respiratory 22 20 Rate Blood Pressure 154/66 Blood Pressure 167/94 [Right] O2 Sat by Pulse 95 97 Oximetry Lab Results 03/22/18 03/22/18 03/22/18 Range/Units 12:12 12:12 12:12 WBC 5.8 (4.5-11.0) K/mm3 RBC 2.77 L (3.65-5.03) M/mm3 Hgb 8.0 L (10.1-14.3) gm/dl Hct 25.1 L (30.3-42.9) % MCV 91 (79-97) fl MCH 29 (28-32) pg MCHC 32 (30-34) % RDW 21.3 H (13.2-15.2) % Plt Count 274 (140-440) K/mm3 Lymph % (Auto) 15.4 (13.4-35.0) % Parmer % (Auto) 15.1 H (0.0-7.3) % Eos % (Auto) 0.4 (0.0-4.3) % Baso % (Auto) 0.5 (0.0-1.8) % Lymph # 0.9 L (1.2-5.4) K/mm3 Parmer # 0.9 H (0.0-0.8) K/mm3 Eos # 0.0 (0.0-0.4) K/mm3 Baso # 0.0 (0.0-0.1) K/mm3 Seg Neutrophils % 68.6 (40.0-70.0) % Seg Neutrophils # 4.0 (1.8-7.7) K/mm3 PT 14.4 (12.2-14.9) Sec. INR 1.06 (0.87-1.13) APTT 36.3 (24.2-36.6) Sec. Sodium 139 (137-145) mmol/L Potassium 4.4 (3.6-5.0) mmol/L Chloride 94.8 L (98-107) mmol/L Carbon Dioxide 27 (22-30) mmol/L Anion Gap 22 mmol/L BUN 41 H (7-17) mg/dL Creatinine 5.6 H (0.7-1.2) mg/dL Estimated GFR 9 ml/min BUN/Creatinine Ratio 7 % Glucose 77 (65-100) mg/dL Calcium 9.1 (8.4-10.2) mg/dL Troponin T 0.483 H* D (0.00-0.029) ng/mL Triglycerides 64 (2-149) mg/dL Cholesterol 127 (50-199) mg/dL LDL Cholesterol Direct 68 (50-130) mg/dL HDL Cholesterol 56 (40-59) mg/dL Cholesterol/HDL Ratio 2.26 % 03/22/18 Range/Units 14:04 WBC (4.5-11.0) K/mm3 RBC (3.65-5.03) M/mm3 Hgb (10.1-14.3) gm/dl Hct (30.3-42.9) % MCV (79-97) fl MCH (28-32) pg MCHC (30-34) % RDW (13.2-15.2) % Plt Count (140-440) K/mm3 Lymph % (Auto) (13.4-35.0) % Parmer % (Auto) (0.0-7.3) % Eos % (Auto) (0.0-4.3) % Baso % (Auto) (0.0-1.8) % Lymph # (1.2-5.4) K/mm3 Parmer # (0.0-0.8) K/mm3 Eos # (0.0-0.4) K/mm3 Baso # (0.0-0.1) K/mm3 Seg Neutrophils % (40.0-70.0) % Seg Neutrophils # (1.8-7.7) K/mm3 PT (12.2-14.9) Sec. INR (0.87-1.13) APTT (24.2-36.6) Sec. Sodium (137-145) mmol/L Potassium (3.6-5.0) mmol/L Chloride (98-107) mmol/L Carbon Dioxide (22-30) mmol/L Anion Gap mmol/L BUN (7-17) mg/dL Creatinine (0.7-1.2) mg/dL Estimated GFR ml/min BUN/Creatinine Ratio % Glucose (65-100) mg/dL Calcium (8.4-10.2) mg/dL Troponin T 0.537 H* (0.00-0.029) ng/mL Triglycerides (2-149) mg/dL Cholesterol (50-199) mg/dL LDL Cholesterol Direct (50-130) mg/dL HDL Cholesterol (40-59) mg/dL Cholesterol/HDL Ratio % - EKG Data -: EKG Interpreted by Mt - EKG Data 03/22/18 17:23 Normal sinus, 93 bpm, normal axis, QTC prolonged, a troponin enlargement, nonspecific T-wave abnormalities, abnormal EKG, not an ST elevation NE. EKG #2 is unchanged. Both EKGs unchanged from prior EKG from 03/23/2018. - Radiology Data Radiology results: report reviewed, image reviewed X-ray of the chest, pelvis, right femur, right knee negative for acute disease. No fracture or dislocation. Arthritis noted. Chronic pulmonary vascular congestion noted. - Medical Decision Making Patient has no crackles or rales and lungs are clear. There is no lower extremity edema. She is saturating well. Clinically do not suspect fluid overload. EKG abnormal but unchanged appears unchanged from prior EKG. Was recently cleared by cardiology within the past 21 days. Does not require admission to the hospital for repeat cardiac risk stratification at this time. 2, Critical care attestation.: If time is entered above; I have spent that time in minutes in the direct care of this critically ill patient, excluding procedure time. ED Disposition Clinical Impression: ESRD (end stage renal disease) on dialysis, Recurrent chest pain Disposition: TO HOME OR SELFCARE Is pt being admited?: No Does the pt Need Aspirin: No Condition: Stable Instructions: Chest Pain (ED) Additional Instructions: Contact for outpatient dialysis center first thing today, or first thing tomorrow, and informed them that I have personally spoken to her private health plan specialist, Dr Noah Rashid; he would like you to have dialysis tomorrow. Continue current outpatient medications, and follow-up with her cloth shrinker next week. Please note that you were instructed to follow-up with her private cloth shrinker when you were discharged on 03/05/2018 and the inform me that you have not done so. Therefore, please make certain to follow-up with her heart doctor next week. As always, please return to the ER right away with new pain, worsened pain, migration of pain, fevers, chills, lethargy, irritability, projectile vomiting, change in mental status, confusion, inability to tolerate liquids. Referrals: PRIMARY CARE, [Primary Care Provider] - 3-5 Days CHARLOTTE SCOTT MD [Staff Physician] - 3-5 Days NOAH RASHID MD [Staff Physician] - 3-5 Days
[2018-03-22 17:57] VITALS: BP 162/84
== END 2018-03-22 17:57 | disposition home or self-care (01) ==
LOC: ED 11:30
DX: R07.89 Other chest pain (principal); R10.13 Epigastric pain; M25.512 Pain in left shoulder; I13.2 Hypertensive heart and chronic kidney disease with heart failure and with stage 5 chronic kidney disease, or end stage renal disease; N18.6 End stage renal disease; I50.9 Heart failure, unspecified; K21.9 Gastro-esophageal reflux disease without esophagitis; M19.90 Unspecified osteoarthritis, unspecified site; F17.200 Nicotine dependence, unspecified, uncomplicated; Z99.2 Dependence on renal dialysis; Z86.73 Personal history of transient ischemic attack (TIA), and cerebral infarction without residual deficits; Z98.51 Tubal ligation status
CPT/HCPCS: 36415; 71045; 72170; 80048; 80061; 84484; 85025; 85610; 85730; 93005; 93010

== ENCOUNTER 2018-04-29 10:17 | Emergency (ER) | payer MEDICARE ==
[2018-04-29 10:35] VITALS: BP 152/76
[2018-04-29 12:21] LABS: Basophils % (Auto) 0.8 % (0.0-1.8); Eosinophils % (Auto) 0.3 % (0.0-4.3); Hematocrit 26.8 % (30.3-42.9); Hemoglobin 8.7 gm/dl (10.1-14.3); Lymphocytes # (Auto) 0.9 K/mm3 (1.2-5.4); Lymphocytes % (Auto) 15.1 % (13.4-35.0); Mean Corpuscular HGB Conc 33 % (30-34); Mean Corpuscular Hemoglobin 29 pg (28-32); Mean Corpuscular Volume 88 fl (79-97); Monocytes # (Auto) 0.6 K/mm3 (0.0-0.8); Monocytes % (Auto) 10.5 % (0.0-7.3); Platelet Count 278 K/mm3 (140-440); Red Blood Count 3.03 M/mm3 (3.65-5.03)
[2018-04-29 12:23] LABS: Red Cell Distribution Width 20.9 % (13.2-15.2)
[2018-04-29 12:37] LABS: Calcium 10.1 mg/dL (8.4-10.2)
[2018-04-29 14:35] LABS: Chol/HDL Ratio 2.54 %
== END 2018-04-29 13:11 | disposition left against medical advice (07) ==
LOC: ED 10:17
DX: R07.89 Other chest pain (principal); Z53.21 Procedure and treatment not carried out due to patient leaving prior to being seen by health care provider
CPT/HCPCS: 36415; 80048; 80061; 84484; 85025; 93005; 93010

== ENCOUNTER 2018-05-17 14:28 | Emergency (ER) | payer MEDICARE ==
[2018-05-17] MEDS ORDERED: NORCO 5/325 PO ONE ×2 (14:46→16:46)
[2018-05-17] MEDS ORDERED: ZOFRAN ODT PO ONE (14:46)
--- NOTE | 2018-05-17 14:51 | Emergency Department Report ---
ED Chest Pain HPI - General Chief Complaint: Chest Pain Stated Complaint: CHEST PAIN Time Seen by Provider: 05/17/18 14:39 Source: patient, EMS Mode of arrival: Stretcher Limitations: No Limitations - History of Present Illness Initial Comments: Ms. Molina is 67 yo female with hx of ESRD, CAD, GERD and tobacco use who presents from HD clinic today with chest and back pain since last night. She was able to obtain dialysis for 2 hours. She also has had several days of right hip pain. She says, "It is not funny. I can not help that I am hurting. " Complaint: chest pain -: Gradual, Last night Onset: during rest Pain Location: substernal Pain Radiation: back Severity: moderate Quality: sharp Consistency: constant Improves With: nothing Worsens With: nothing Context: other (multiple hospitalizations over the past year including this month) - Related Data Home Medications Medication Instructions Recorded Confirmed Last Taken Sennosides [Senna Lax] 8.6 mg PO DAILY PRN 09/27/17 04/25/18 02/07/18 ISOSORBIDE MONOnitrate [Imdur ER] 30 mg PO QDAY 10/14/17 04/25/18 02/07/18 Vit B Comp C/Folic Acid/Vit D3 1 each PO DAILY #0 11/05/17 04/25/18 02/07/18 [Dialyvite 800 Plus D Wafer] Previous Rx's Medication Instructions Recorded Last Taken Type Carvedilol [Coreg] 12.5 mg PO BID #60 tablet 06/27/17 02/07/18 Rx Clopidogrel [Plavix] 75 mg PO QDAY #30 tablet 06/27/17 02/07/18 Rx Atorvastatin Calcium [Lipitor] 40 mg PO DAILY #30 tablet 11/06/17 02/07/18 Rx Pantoprazole [Protonix TAB] 40 mg PO QDAY #30 tablet 11/20/17 02/07/18 Rx Dicyclomine [Bentyl] 10 mg PO TID PRN #30 capsule 12/24/17 02/07/18 Rx Nitroglycerin [Nitrostat] 0.4 mg SL .Q5MIN PRN #30 tablet 12/24/17 02/08/18 Rx Ondansetron [Zofran ODT TAB] 4 mg PO Q8H PRN #30 tab.rapdis 12/24/17 02/07/18 Rx Aspirin EC [Aspirin Enteric Coated 81 mg PO QDAY #30 tablet. 03/16/18 Unknown Rx TAB] Acetaminophen [Tylenol Arthritis] 650 mg PO Q6HR PRN #30 tablet.er 03/22/18 Unknown Rx Allergies Allergy/AdvReac Type Severity Reaction Status Date / Time No Known Allergies Allergy Verified 04/29/18 10:28 Heart Score - HEART Score History: Slightly suspicious EKG: Non-specific Age: > 65 Risk factors: > 3 risk factors or hx of atherosclerotic disease Troponin: 1-3x normal limit HEART Score: 6 ED Review of Systems ROS: Stated complaint: CHEST PAIN Other details as noted in HPI Comment: All other systems reviewed and negative Constitutional: denies: fever, malaise Respiratory: denies: cough, orthopnea Cardiovascular: chest pain Gastrointestinal: denies: abdominal pain ED Past Medical Hx - Past Medical History Hx Hypertension: Yes Hx CVA: Yes (x 2) Hx Heart Attack/AMI: No Hx Congestive Heart Failure: Yes Hx Diabetes: No (H&P reports Diabetes Mellitus) Hx Deep Vein Thrombosis: No Hx GERD: Yes Hx Liver Disease: No Hx Renal Disease: Yes Hx Sickle Cell Disease: No Hx Arthritis: Yes Hx Headaches / Migraines: No Hx Seizures: No Hx Kidney Stones: No Hx Asthma: No Hx COPD: No Hx Tuberculosis: No Hx Dementia: No Hx HIV: No Additional medical history: enlarged heart, gout, LCH CORONARY ANGIOGRAPHY PROCTOR 08/06/2017-NONOBSTRUCTING HEART PER DR GIDEON CALLE, dialysis - Surgical History Hx Coronary Stent: Yes Hx Open Heart Surgery: No Hx Pacemaker: No Hx Internal Defibrillator: Yes Hx Cholecystectomy: No Hx Appendectomy: No Hx Breast Surgery: No Additional Surgical History: tubal ligation, vas cath. LUE fistula. cardiac workup includes a stress test on 12/21/2016 that was unremarkable. Patient status post PCI of RCA with subsequent subacute thrombus of the proximal RCA stent and angioplasty with resolution of thrombosis on November 2016. AICD placement Aug 2017. PCI 03/22/17 of RCA. 05/01/17 neg Lexiscan stress - Social History Smoking Status: Former Smoker Substance Use Type: None - Medications Home Medications: Home Medications Medication Instructions Recorded Confirmed Last Taken Type Carvedilol [Coreg] 12.5 mg PO BID #60 tablet 06/27/17 04/25/1802/07/18 Rx Clopidogrel [Plavix] 75 mg PO QDAY #30 tablet 06/27/17 04/25/18 02/07/18 Rx Sennosides [Senna Lax] 8.6 mg PO DAILY PRN 09/27/17 04/25/18 02/07/18 History ISOSORBIDE MONOnitrate [Imdur ER] 30 mg PO QDAY 10/14/17 04/25/18 02/07/18 History Vit B Comp C/Folic Acid/Vit D3 1 each PO DAILY #0 11/05/17 04/25/18 02/07/18 History [Dialyvite 800 Plus D Wafer] Atorvastatin Calcium [Lipitor] 40 mg PO DAILY #30 tablet 11/06/17 04/25/1802/07 Rx Pantoprazole [Protonix TAB] 40 mg PO QDAY #30 tablet 11/20/17 04/25/18 02/07/18 Rx Dicyclomine [Bentyl] 10 mg PO TID PRN #30 capsule 12/24/17 04/25/18 02/07/18 Rx Nitroglycerin [Nitrostat] 0.4 mg SL .Q5MIN PRN #30 tablet 12/24/17 04/25/18 Rx Ondansetron [Zofran ODT TAB] 4 mg PO Q8H PRN #30 tab.rapdis 12/24/17 04/25/18 Rx Aspirin EC [Aspirin Enteric Coated 81 mg PO QDAY #30 tablet.dr 03/16/18 Unknown Rx TAB] Acetaminophen [Tylenol Arthritis] 650 mg PO Q6HR PRN #30 tablet.er 03/22/1806/04 Unknown Rx ED Physical Exam - General Limitations: No Limitations General appearance: alert, in no apparent distress - Head Head exam: Present: atraumatic, normocephalic - Eye Eye exam: Present: normal appearance - ENT ENT exam: Present: mucous membranes moist - Neck Neck exam: Present: normal inspection. Absent: tenderness, meningismus - Respiratory Respiratory exam: Present: normal lung sounds bilaterally. Absent: respiratory distress, wheezes, rales, rhonchi - Cardiovascular Cardiovascular Exam: Present: regular rate, normal rhythm, normal heart sounds. Absent: systolic murmur, diastolic murmur, rubs, gallop - GI/Abdominal GI/Abdominal exam: Present: soft, normal bowel sounds. Absent: distended, tenderness, guarding, rebound - Extremities Exam Extremities exam: Present: normal inspection, other (actively flexing and extending right hip for comfort) - Neurological Exam Neurological exam: Present: alert, oriented X3 - Psychiatric Psychiatric exam: Present: normal affect, anxious - Skin Skin exam: Present: warm, dry, intact, normal color. Absent: rash ED Course Vital Signs 05/17/18 14:41 Temperature 98.6 F Pulse Rate 80 Respiratory 18 Rate Blood Pressure 135/52 O2 Sat by Pulse 99 Oximetry MONE score - Mone Score Age > 65: (1) Yes Aspirin use within the Past 7 Days: (1) Yes 3 or more CAD Risk Factors: (1) Yes 2 or more Angina events in past 24 hrs: (0) No Known CAD with more than 50% Stenosis: (1) Yes Elevated Cardiac Markers: (1) Yes ST Deviation Greater than 0.5mm: (0) No MONE Score: 5 ED Medical Decision Making - Lab Data Result diagrams: 05/17/18 14:58 Laboratory Results - last 24 hr 05/17/18 14:58 Sodium 143 Potassium 3.2 L Chloride 95.1 L Carbon Dioxide 38 H Anion Gap 13 BUN 23 H Creatinine 4.0 H Estimated GFR 13 BUN/Creatinine Ratio 6 Glucose 114 H Calcium 8.8 Troponin T 0.326 H* - EKG Data When compared to previous EKG there are: no significant change Interpretation: no acute changes 05/17/18 14:51 EKG obtained 1414 NSR 80 bpm nl axis nl intervals No signs of ischemia +LVH No changes from EKG obtained 04/29/2018 - Medical Decision Making Ms. Molina presents with chest and back pain persistent since last night. Pain is atypical for ACS. EKG is unchanged from prior. Right hip pain likely due to DJD/OA. I have provided [place]. She has had extensive w/u for cardiac disease during innumerable hospitalizations. I have performed an extensive review of documentation including most recent discharge summary and cardiology consultation. Ms. Molina does not appear to have obstructive CAD which needs intervention. I do understand that patient's risk of major adverse cardiac effect is high. It must be noted that all patient with CAD and/or ESRD have a risk of sudden and cardiac event. Unfortunately, further inpatient care does not appear to be the ideal setting to optimize Mrs. Molina' care. It would be helpful for her to have close, regular contact with a primary manager intensive care who could coordinate her care. I do not suspect acute process as this time such as ACS, PE, PTX, pericarditis, dissection. Her vital signs are normal. HR 80 BP 132/71. Discharged home in stable condition with chronic troponin elevation. I did speak with two sisters who came to the ED. She is now living with her sister. Critical care attestation.: If time is entered above; I have spent that time in minutes in the direct care of this critically ill patient, excluding procedure time. ED Disposition Clinical Impression: ESRD (end stage renal disease) on dialysis, Chest pain Disposition: DC-01 TO HOME OR SELFCARE Is pt being admited?: No Does the pt Need Aspirin: No Condition: Stable Instructions: Chest Pain (ED) Time of Disposition: 16:47
[2018-05-17 15:35] LABS: Calcium 8.8 mg/dL (8.4-10.2)
[2018-05-17 17:05] VITALS: BP 139/63
[2018-05-17 19:03] LABS: Chol/HDL Ratio 2.8 %
== END 2018-05-17 17:09 | disposition home or self-care (01) ==
LOC: ED 14:28
DX: R07.89 Other chest pain (principal); I13.2 Hypertensive heart and chronic kidney disease with heart failure and with stage 5 chronic kidney disease, or end stage renal disease; N18.6 End stage renal disease; I50.9 Heart failure, unspecified; K21.9 Gastro-esophageal reflux disease without esophagitis; M19.90 Unspecified osteoarthritis, unspecified site; M10.9 Gout, unspecified; Z99.2 Dependence on renal dialysis; Z86.73 Personal history of transient ischemic attack (TIA), and cerebral infarction without residual deficits; Z98.51 Tubal ligation status; Z87.891 Personal history of nicotine dependence
CPT/HCPCS: 36415; 80048; 80061; 84484; 93005; 93010; 99284; Q0162

== ENCOUNTER 2018-05-31 15:06 | Emergency (ER) | payer MEDICARE ==
[2018-05-31 16:51] VITALS: BP 120/49
[2018-05-31] MEDS ORDERED: PERCOCET 5/325 PO ONE (17:10)
--- NOTE | 2018-05-31 17:15 | Emergency Department Report ---
ED Lower Extremity HPI - General Chief Complaint: Back Pain/Injury Stated Complaint: BACK/HIP PAIN Time Seen by Provider: 05/31/18 16:36 Source: patient, EMS Mode of arrival: Wheelchair Limitations: No Limitations - History of Present Illness Initial Comments: Ms. Molina is 67 yo female with hx of ESRD and CAD who presents with severe back and bilateral hip pain. She fell yesterday. She was undergoing dialysis when this pain episode occurred. She explained that she has had pain in her back and hips for several months. However, her medications at home are too week. According to EMR, patient appears to have opioid dependence. She is ambulatory. MD Complaint: hip injury, fall Injury: Hip: Right, Left Type of Injury: other (fall) Severity: severe Context: fall - Related Data Home Medications Medication Instructions Recorded Confirmed Last Taken Sennosides [Senna Lax] 8.6 mg PO DAILY PRN 09/27/17 04/25/18 02/07/18 ISOSORBIDE MONOnitrate [Imdur ER] 30 mg PO QDAY 10/14/17 04/25/18 02/07/18 Vit B Comp C/Folic Acid/Vit D3 1 each PO DAILY #0 11/05/17 04/25/18 02/07/18 [Dialyvite 800 Plus D Wafer] Previous Rx's Medication Instructions Recorded Last Taken Type Carvedilol [Coreg] 12.5 mg PO BID #60 tablet 06/27/17 02/07/18 Rx Clopidogrel [Plavix] 75 mg PO QDAY #30 tablet 06/27/17 02/07/18 Rx Atorvastatin Calcium [Lipitor] 40 mg PO DAILY #30 tablet 11/06/17 02/07/18 Rx Pantoprazole [Protonix TAB] 40 mg PO QDAY #30 tablet 11/20/17 02/07/18 Rx Dicyclomine [Bentyl] 10 mg PO TID PRN #30 capsule 12/24/17 02/07/18 Rx Nitroglycerin [Nitrostat] 0.4 mg SL .Q5MIN PRN #30 tablet 12/24/17 02/08/18 Rx Ondansetron [Zofran ODT TAB] 4 mg PO Q8H PRN #30 tab.rapdis 12/24/17 02/07/18 Rx Aspirin EC [Aspirin Enteric Coated 81 mg PO QDAY #30 tablet. 03/16/18 Unknown Rx TAB] Acetaminophen [Tylenol Arthritis] 650 mg PO Q6HR PRN #30 tablet.er 03/22/18 Unknown Rx Allergies Allergy/AdvReac Type Severity Reaction Status Date / Time No Known Allergies Allergy Verified 05/31/18 15:23 ED Review of Systems ROS: Stated complaint: BACK/HIP PAIN Other details as noted in HPI Cardiovascular: denies: chest pain Gastrointestinal: denies: abdominal pain Musculoskeletal: back pain Neurological: denies: weakness, paresthesias ED Past Medical Hx - Past Medical History Previous Medical History?: Yes Hx Hypertension: Yes Hx CVA: Yes (x 2) Hx Heart Attack/AMI: No Hx Congestive Heart Failure: Yes Hx Diabetes: No (H&P reports Diabetes Mellitus) Hx Deep Vein Thrombosis: No Hx GERD: Yes Hx Liver Disease: No Hx Renal Disease: Yes Hx Sickle Cell Disease: No Hx Arthritis: Yes Hx Headaches / Migraines: No Hx Seizures: No Hx Kidney Stones: No Hx Asthma: No Hx COPD: No Hx Tuberculosis: No Hx Dementia: No Hx HIV: No Additional medical history: enlarged heart, gout, L[facility] CORONARY ANGIOGRAPHY PARTRIDGE 08/06/2017-NONOBSTRUCTING HEART PER DR GIDEON CALLE, dialysis - Surgical History Past Surgical History?: Yes Hx Coronary Stent: Yes Hx Open Heart Surgery: No Hx Pacemaker: No Hx Internal Defibrillator: Yes Hx Cholecystectomy: No Hx Appendectomy: No Hx Breast Surgery: No Additional Surgical History: tubal ligation, vas cath. LUE fistula. cardiac workup includes a stress test on 12/21/2016 that was unremarkable. Patient status post PCI of RCA with subsequent subacute thrombus of the proximal RCA stent and angioplasty with resolution of thrombosis on November 2016. AICD placement Aug 2017. PCI 03/22/17 of RCA. 05/01/17 neg Lexiscan stress - Social History Smoking Status: Current Some Day Smoker Substance Use Type: None - Medications Home Medications: Home Medications Medication Instructions Recorded Confirmed Last Taken Type Carvedilol [Coreg] 12.5 mg PO BID #60 tablet 06/27/17 04/25/18 02/07/18 Rx Clopidogrel [Plavix] 75 mg PO QDAY #30 tablet 06/27/17 04/25/18 02/07/18 Rx Sennosides [Senna Lax] 8.6 mg PO DAILY PRN 09/27/17 04/25/18 02/07/18 History ISOSORBIDE MONOnitrate [Imdur ER] 30 mg PO QDAY 10/14/17 04/25/18 02/07/18 History Vit B Comp C/Folic Acid/Vit D3 1 each PO DAILY #0 11/05/17 04/25/18 02/07/18 History [Dialyvite 800 Plus D Wafer] Atorvastatin Calcium [Lipitor] 40 mg PO DAILY #30 tablet 11/06/17 04/25/1802/07 Rx Pantoprazole [Protonix TAB] 40 mg PO QDAY #30 tablet 11/20/17 04/25/18 02/07/18 Rx Dicyclomine [Bentyl] 10 mg PO TID PRN #30 capsule 12/24/17 04/25/18 02/07/18 Rx Nitroglycerin [Nitrostat] 0.4 mg SL .Q5MIN PRN #30 tablet 12/24/17 04/25/18 Rx Ondansetron [Zofran ODT TAB] 4 mg PO Q8H PRN #30 tab.rapdis 12/24/17 04/25/18 Rx Aspirin EC [Aspirin Enteric Coated 81 mg PO QDAY #30 tablet.dr 03/16/18 Unknown Rx TAB] Acetaminophen [Tylenol Arthritis] 650 mg PO Q6HR PRN #30 tablet.er 03/22/1806/04 Unknown Rx ED Physical Exam - General Limitations: No Limitations General appearance: alert, in no apparent distress, other (appears comfortable, sitting in bed with both legs flexed at hip and knee) - Head Head exam: Present: atraumatic, normocephalic - Eye Eye exam: Present: normal appearance - ENT ENT exam: Present: mucous membranes moist - Neck Neck exam: Present: normal inspection - Respiratory Respiratory exam: Present: normal lung sounds bilaterally. Absent: respiratory distress, wheezes, rales, rhonchi - Cardiovascular Cardiovascular Exam: Present: regular rate, normal rhythm, normal heart sounds, systolic murmur, diastolic murmur. Absent: rubs, gallop - GI/Abdominal GI/Abdominal exam: Present: soft, normal bowel sounds. Absent: distended, tenderness, rebound - Extremities Exam Extremities exam: Present: normal inspection - Back Exam Back exam: Present: normal inspection - Neurological Exam Neurological exam: Present: alert, oriented X3 - Psychiatric Psychiatric exam: Present: depressed, flat affect - Skin Skin exam: Present: warm, dry, intact, normal color. Absent: rash ED Course Vital Signs 05/31/18 05/31/18 05/31/18 15:19 16:44 16:48 Temperature 98.9 F 98.5 F Pulse Rate 88 83 Respiratory 16 16 Rate Blood Pressure 143/45 Blood Pressure 120/49 [Right] O2 Sat by Pulse 100 99 100 Oximetry ED Lower Extremity MDM - Medical Decision Making Ms. Molina presents with hip and bilateral hip pain after fall yesterday. She is ambulatory. She received Percocet and Toradol in the ED prior to discharge. She has access to both a PCP and supervisor housecleaner who have supplied pain medications. Dc'd home Critical care attestation.: If time is entered above; I have spent that time in minutes in the direct care of this critically ill patient, excluding procedure time. ED Disposition Clinical Impression: Hip pain, bilateral, Back pain Disposition: DC- TO HOME OR SELFCARE Is pt being admited?: No Does the pt Need Aspirin: No Condition: Stable Instructions: Arthralgia (ED), Lumbar Radiculopathy (ED) Time of Disposition: 17:15
[2018-05-31] MEDS ORDERED: TORADOL IM ONE (17:21)
== END 2018-05-31 18:10 | disposition home or self-care (01) ==
LOC: ED 15:06
DX: M54.9 Dorsalgia, unspecified (principal); M25.552 Pain in left hip; M25.551 Pain in right hip; I10 Essential (primary) hypertension; E11.9 Type 2 diabetes mellitus without complications; K21.9 Gastro-esophageal reflux disease without esophagitis; F17.200 Nicotine dependence, unspecified, uncomplicated; I13.0 Hypertensive heart and chronic kidney disease with heart failure and stage 1 through stage 4 chronic kidney disease, or unspecified chronic kidney disease; N18.9 Chronic kidney disease, unspecified; I50.9 Heart failure, unspecified; Z86.73 Personal history of transient ischemic attack (TIA), and cerebral infarction without residual deficits; Z99.2 Dependence on renal dialysis; Z98.51 Tubal ligation status; Z98.890 Other specified postprocedural states; Z95.828 Presence of other vascular implants and grafts; Z79.899 Other long term (current) drug therapy; Z79.82 Long term (current) use of aspirin
CPT/HCPCS: 96372; 99283; J1885

== ENCOUNTER 2018-05-31 20:25 | Emergency (ER) | payer MEDICARE | END 2018-05-31 20:26 | disposition left against medical advice (07) | LOC: ED 20:25 | DX: Z00.8 Encounter for other general examination (principal); Z53.21 Procedure and treatment not carried out due to patient leaving prior to being seen by health care provider ==